=== PATIENT | male | born 1990 | race Caucasian/White ===

== ENCOUNTER 2016-11-21 14:18 | Emergency (ER) | payer OTHER ==
[2016-11-21 14:25] VITALS: PULSE 71; BMI 26.4
--- NOTE | 2016-11-21 16:16 | PDOC ---
History of Present Illness - History of Present Illness Initial Comments: 11/21/16 16:41 The patient is a 26 year old male, with a significant past medical history of G- Tube, who presents to the emergency department with nursing home director from the facility for replacement of G-tube. The patient is non-verbal at baseline. As per living facility, the patient pulled out his G-tube at 1:40PM this afternoon which was followed by active bleeding. Allergies: NKDA <Radha Mauro - Last Filed: 11/21/16 16:44> <Monica Flynn - Last Filed: 12/05/16 12:27> - General Chief Complaint: G Tube Problem Stated Complaint: G TUBE REPLACEMENT Time Seen by Provider: 11/21/16 15:47 Past History <Radha Mauro - Last Filed: 11/21/16 16:44> - Past Medical History Anemia: No Asthma: Yes Cancer: No Cardiac Disorders: No CVA: No COPD: No CHF: No Dementia: No Diabetes: No GI Disorders: Yes (Gastrostomy tube) Disorders: Yes (UTI) HTN: No Hypercholesterolemia: No Liver Disease: No Psychiatric Problems: (Profound Mental Retardation) Seizures: Yes (Epilepsy) Thyroid Disease: No - Surgical History Abdominal Surgery: Yes (Gastrostomy tube) Appendectomy: No Cardiac Surgery: No Cholecystectomy: No Lung Surgery: No Neurologic Surgery: No Orthopedic Surgery: Yes (Spinal fusion, Osteotomy right hip) - Psycho/Social/Smoking Cessation Hx Suicidal Ideation: No Smoking Status: No Smoking History: Never smoked Number of Cigarettes Smoked Daily: 0 Hx Alcohol Use: No Drug/Substance Use Hx: No Substance Use Type: None Hx Substance Use Treatment: No <Monica Flynn - Last Filed: 12/05/16 12:27> - Past Medical History Allergies/Adverse Reactions: Allergies Allergy/AdvReac Type Severity Reaction Status Date / Time No Known Drug Allergies Allergy Verified 11/21/16 14:26 Home Medications: Ambulatory Orders Albuterol 2.5/Ipratropium 0.5 [Duoneb -] 1 neb NEB QIDR PRN #0 vial 11/01/11 Baclofen [Lioresal -] 10 mg GT Q8H 04/01/16 Diazepam Rectal Gel [Diastat Rectal Gel -] 10 mg RC PRN 09/19/16 Ferrous Sulfate 220 mg GT BID 04/01/16 Lactulose 10 gm GT BID 04/01/16 Sennosides [Senna] 2 tab GT HS 04/01/16 Simethicone Liquid [Mylicon Liquid -] 40 mg GT BID 04/01/16 Topiramate 100 mg GT Q12H 04/01/16 Vit C/Ascorbate Calcium,Sodium [Vitamin C 500 mg/15 ml Liquid] 500 mg GT DAILY 04/01/16 Calcium Carbonate/Vitamin D3 [Oyster Shell Calcium-Vit D Tab] 1 each GT BID Clobazam [Onfi -] 15 mg GT BID 04/05/16 Diazepam Con 5mg/Ml Intensol 0.5 mg GT DAILY 04/05/16 Doxycycline Oral Suspension [Vibramycin Oral Suspension -] 100 mg GT BID@1000, 1800 04/05/16 Loratadine [Non-Drowsy Allergy] 10 mg GT DAILY 04/05/16 Polyethylene Glycol 3350 [Glycolax] 17 gm GT DAILY 04/05/16 Sulfamethoxazole/Trimethoprim [Sulfatrim 800-160 mg/20 ml Ramona] 20 ml GT DAILY Levofloxacin [Levaquin -] 500 mg PO DAILY #14 tablet 06/17/16 Review of Systems - Review of Systems Able to Perform ROS?: No (nonverbal at BL) <Radha Mauro - Last Filed: 11/21/16 16:44> *Physical Exam - Vital Signs Last Vital Signs Temp Pulse Resp BP Pulse Ox 71 18 136/69 97 11/21/16 14:21 11/21/16 14:21 11/21/16 14:21 11/21/16 14:21 <Radha Mauro - Last Filed: 11/21/16 16:44> - Vital Signs Last Vital Signs Temp Pulse Resp BP Pulse Ox 71 18 136/69 97 11/21/16 14:21 11/21/16 14:21 11/21/16 14:21 11/21/16 14:21 - Physical Exam Comments: GENERAL: Awake, alert, in no acute distress. Nonverbal at baseline. HEAD: No signs of trauma EYES: PERRLA, EOMI, sclera anicteric, conjunctiva clear ENT: Auricles normal inspection, hearing grossly normal, nares patent, oropharynx clear without exudates. Moist mucosa NECK: Normal ROM, supple, no lymphadenopathy, JVD, or masses LUNGS: Breath sounds equal, clear to auscultation bilaterally. No wheezes, and no crackles HEART: Regular rate and rhythm, normal S1 and S2, no murmurs, rubs or gallops ABDOMEN: Soft, nontender, normoactive bowel sounds. No guarding, no rebound. No masses. +PEG site intact to LUQ. EXTREMITIES: Normal range of motion, no edema. No clubbing or cyanosis. No cords, erythema, or tenderness NEUROLOGICAL: Unable to cooperate with full neuro exam. SKIN: Warm, Dry, normal turgor, no rashes or lesions noted. <Monica Flynn - Last Filed: 12/05/16 12:27> Procedures - Additional Procedures Additional Procedures: gastric tube replacement Progress: 11/21/16 16:21 PEG tube replaced- 22 Fr tube placed on first attempt, no resistance. Balloon inflated. +Borborygmi. Tube secured. <Monica Flynn - Last Filed: 12/05/16 12:27> *DC/Admit/Observation/Transfer - Attestations Scribe Attestion: 11/21/16 16:45 Documentation prepared by Radha Mauro, acting as anesthesiology medical doctor for Monica Flynn MD, <Radha Mauro - Last Filed: 11/21/16 16:44> - Discharge Dispostion Admit: No <Monica Flynn - Last Filed: 12/05/16 12:27> Diagnosis at time of Disposition: PEG tube malfunction - Discharge Dispostion Disposition: HOME Condition at time of disposition: Stable - Patient Instructions Printed Discharge Instructions: How to Care for Your PEG Tube Additional Instructions: Size 22F Peg tube inserted.
[2016-11-21 16:57] VITALS: BP 129/77; TEMP 98.1
== END 2016-11-21 16:55 | disposition home or self-care (01) ==
LOC: JER 14:18
PROC: 0D20XUZ Change Feeding Device in Upper Intestinal Tract, External Approach (ICD-10-PCS; principal; 2016-11-21)
DX: Z43.1 Encounter for attention to gastrostomy (principal); F73 Profound intellectual disabilities; G40.909 Epilepsy, unspecified, not intractable, without status epilepticus; J45.909 Unspecified asthma, uncomplicated
CPT/HCPCS: 74000-TC; 99283-25

== ENCOUNTER 2018-01-14 14:36 | Inpatient (IN) | payer OTHER ==
[2018-01-14] MEDS ORDERED: ALBUTEROL SO4 2.5/IPRATROPIUM 0.5 INH SOL 3 ML VIAL.NEB. NEB ONE ×2 (14:49→15:11)
--- NOTE | 2018-01-14 14:54 | PDOC ---
History of Present Illness - General Chief Complaint: Respiratory Stated Complaint: WHEEZING Time Seen by Provider: 01/14/18 14:54 History Source: Patient Exam Limitations: No Limitations - History of Present Illness Initial Comments: This is a 27 YOM with h/o chronic aspiration, PNA, asthma, PEG tube, UTI, seizure disorder, profound MR/DD, microcephaly, paraplegia, scoliosis, spinal fusion, right hip osteotomy, wheelchair bound at baseline, who was BIBA from [facility] for difficulty breathing, cough, wheezing, rhonchi persistent after multiple nebulizer treatments, with pulse oxygenation 94% at his facility. The patient himself is nonverbal and minimally interactive (per his normal baseline per his collet driller) and is thus unable to provide any medical history. Per [facility] records his temperature was noted as under 94 degrees, not noted whether this was oral or rectal. Past History - Past Medical History Allergies/Adverse Reactions: Allergies Allergy/AdvReac Type Severity Reaction Status Date / Time No Known Drug Allergies Allergy Verified 01/14/18 14:46 Home Medications: Ambulatory Orders Albuterol 0.083% Nebulizer Rani [Ventolin 0.083% Nebulizer Soln -] 1 amp NEB QID 01/14/18 Baclofen 10 mg GT TID 01/14/18 Bisacodyl Suppository [Dulcolax Suppository -] 10 mg RC DAILY PRN 01/14/18 Calcium Carbonate/Vitamin D3 [Oyster Shell Calcium-Vit D Tab] 1 each PO DAILY Clobazam [Onfi -] 15 mg GT BID 01/14/18 Diazepam 5 mg GT DAILY 01/14/18 Diazepam Rectal Gel [Diastat *Rectal Gel*] 10 mg RC PRN 01/14/18 Doxycycline Calcium [Vibramycin] 10 ml GT BID 01/14/18 Ferrous Sulfate 220 mg PEG BID 01/14/18 Lactulose 10 gm PEG BID 01/14/18 Loratadine 10 mg GT DAILY 01/14/18 Mometasone Furoate 17 gm NS BID 01/14/18 Polyethylene Glycol 3350 [Glycolax] 17 gm GT DAILY 01/14/18 Sennosides [Senna] 2 tab GT HS 01/14/18 Simethicone 40 mg PO BID 01/14/18 Sodium Chloride [Saline Mist] 2 spray NS QID 01/14/18 Sulfamethoxazole/Trimethoprim [Sulfatrim 800-160 mg/20 ml Ramona] 20 ml GT HS 01/14 Topiramate 100 mg GT BID 01/14/18 Anemia: No Asthma: Yes Cancer: No Cardiac Disorders: No CVA: No COPD: No CHF: No Dementia: No Diabetes: No GI Disorders: Yes (Gastrostomy tube) Disorders: Yes (UTI) HTN: No Hypercholesterolemia: No Liver Disease: No Psychiatric Problems: (Profound Mental Retardation) Seizures: Yes (Epilepsy) Thyroid Disease: No - Surgical History Abdominal Surgery: Yes (Gastrostomy tube) Appendectomy: No Cardiac Surgery: No Cholecystectomy: No Lung Surgery: No Neurologic Surgery: No Orthopedic Surgery: Yes (Spinal fusion, Osteotomy right hip) - Suicide/Smoking/Psychosocial Hx Smoking Status: No Smoking History: Never smoked Number of Cigarettes Smoked Daily: 0 Hx Alcohol Use: No Drug/Substance Use Hx: No Substance Use Type: None Hx Substance Use Treatment: No Review of Systems - Review of Systems Able to Perform ROS?: No (Severe MR/DD) *Physical Exam - Vital Signs Last Vital Signs Temp Pulse Resp BP Pulse Ox 79 16 117/86 84 L 01/14/18 14:42 01/14/18 14:42 01/14/18 14:42 01/14/18 14:42 - Physical Exam General Appearance: Yes: Other (nonverbal, non-interactive, initially apparently sleeping with eyes closed while sitting in own wheelchair with gurgling breath sounds audible across the room, caregiver at bedside). No: Apparent Distress, Cachetic HEENT: negative: Scleral Icterus (R), Scleral Icterus (L), Nasal Congestion Neck: positive: Trachea midline, Supple. negative: Tender, Rigid Respiratory/Chest: positive: Respiratory Distress (mild), Accessory Muscle Use, Labored Respiration, Rapid RR, Crackles (marked diffuse worse at bilateral bases ). negative: Lungs Clear, Normal Breath Sounds, Rhonchi, Stridor, Wheezing Cardiovascular: positive: Regular Rhythm, Regular Rate, S1, S2. negative: Edema , JVD, Murmur Gastrointestinal/Abdominal: positive: Normal Bowel Sounds, Soft, Protuberent. negative: Tender, Organomegaly, Pulsatile Mass, Guarding Musculoskeletal: positive: Normal Inspection. negative: Decreased Range of Motion, Vertebral Tenderness Extremity: positive: Normal Capillary Refill, Normal Inspection, Normal Range of Motion. negative: Tender, Cyanosis Integumentary: positive: Normal Color, Dry, Warm. negative: Erythema, Rash, Bruising Neurologic: positive: Other (patient cannot participate in neurological exam but caregiver states mentating at baseline). negative: Fully Oriented, Alert, Motor Strength 5/5, Facial Droop ED Treatment Course - LABORATORY CBC & Chemistry Diagram: 01/14/18 15:47 01/14/18 15:47 Medical Decision Making - Critical Care Time Total Critical Care Time (minutes): 45 Critical Care Statement: The care of this patient involved high complexity decision making to prevent further life threatening deterioration of the patient 's condition and/or to evaluate & treat vital organ system(s) failure or risk of failure. - Medical Decision Making 01/14/18 16:24 Pt p/w SOB, cough, and hypothermia. Initial Vital Signs Pulse Resp BP Pulse Ox 79 16 117/86 84 L 01/14/18 14:42 01/14/18 14:42 01/14/18 14:42 01/14/18 14:42 Rectal temp 92.2 on arrival. Exam: Results as noted in Physical Exam section. DDX IBNLT: sepsis, PNA, aspiration pneumonitis, bronchitis, pulmonary edema, asthma, viral URI (e.g. influenza), CHF, other lung disease, COPD, laryngitis, tracheitis, etc. W/U ordered: CXR EKG CBCD CMP Mg Phos Blood gas Lactate BCx Cardiac panel EKG CXR Rectal temp probe TX ordered: IVF Vancomycin Zosyn Azithromycin EKG: Reviewed; results as noted in ECG Review section. CXR: Pulmonary vascular congestion, possible RLL consolidation, Chilaiditi variant similar to prior CXRs, otherwise nothing acute. Patient has a seizure lasting about one minute, caregiver states per his normal seizures, no desat. Copious secretions during seizure which are suctioned and patient noted to have no gag reflex during suctioning. Spoke with Pt's mother Ms. Florence Dave ([phone]), who states per patient' s prior code status conversations with his providers: No surgeries, no permanent "hookup to machines", no chest compressions, but DO intubate and do central line if indicated. Laboratory Tests 01/14/18 01/14/18 01/14/18 15:47 15:47 15:47 WBC 18.1 H RBC 3.71 L Hgb 11.0 L Hct 35.0 L D MCV 94.3 MCH 29.7 MCHC 31.5 L RDW 16.1 H Plt Count 596 H D MPV 7.0 L D Absolute Neuts (auto) 15.1 Neutrophils % 83.2 H D Lymphocytes % 11.5 D Monocytes % 4.7 Eosinophils % 0.2 D Basophils % 0.4 Nucleated RBC % 0 PT with INR Cancelled INR Cancelled PTT (Actin FS) Cancelled VBG pH POC VBG pCO2 POC VBG pO2 Mixed VBG HCO3 Sodium 137 Potassium 4.3 Chloride 104 Carbon Dioxide 21 Anion Gap 12 BUN 22 H Creatinine 1.3 Creat Clearance w eGFR > 60 Random Glucose 139 H D Lactic Acid Calcium 9.3 Total Bilirubin 0.2 AST 35 D ALT 27 D Alkaline Phosphatase 166 H Creatine Kinase 60 CK-MB (CK-2) 1.90 Troponin I Total Protein 8.9 H Albumin 2.7 L Urine Color Urine Appearance Urine pH Ur Specific [place] Urine Protein Urine Glucose (UA) Urine Ketones Urine Blood Urine Nitrite Urine Bilirubin Urine Urobilinogen Ur Leukocyte Esterase Urine WBC (Auto) Urine RBC (Auto) Urine Bacteria Urine Mucus Stool Occult Blood Anti-A Titer Blood Type Antibody Screen 01/14/18 01/14/18 01/14/18 15:47 15:47 15:47 WBC RBC Hgb Hct MCV MCH MCHC RDW Plt Count MPV Absolute Neuts (auto) Neutrophils % Lymphocytes % Monocytes % Eosinophils % Basophils % Nucleated RBC % PT with INR INR PTT (Actin FS) VBG pH POC VBG pCO2 POC VBG pO2 Mixed VBG HCO3 Sodium Potassium Chloride Carbon Dioxide Anion Gap BUN Creatinine Creat Clearance w eGFR Random Glucose Lactic Acid 1.5 Calcium Total Bilirubin AST ALT Alkaline Phosphatase Creatine Kinase CK-MB (CK-2) Troponin I < 0.02 Total Protein Albumin Urine Color Urine Appearance Urine pH Ur Specific [place] Urine Protein Urine Glucose (UA) Urine Ketones Urine Blood Urine Nitrite Urine Bilirubin Urine Urobilinogen Ur Leukocyte Esterase Urine WBC (Auto) Urine RBC (Auto) Urine Bacteria Urine Mucus Stool Occult Blood Anti-A Titer Cancelled Blood Type Cancelled Antibody Screen Cancelled 01/14/18 01/14/18 01/14/18 15:52 16:10 16:29 WBC RBC Hgb Hct MCV MCH MCHC RDW Plt Count MPV Absolute Neuts (auto) Neutrophils % Lymphocytes % Monocytes % Eosinophils % Basophils % Nucleated RBC % PT with INR Cancelled INR Cancelled PTT (Actin FS) Cancelled VBG pH 7.20 L* POC VBG pCO2 58.2 H POC VBG pO2 36.4 Mixed VBG HCO3 22.2 Sodium Potassium Chloride Carbon Dioxide Anion Gap BUN Creatinine Creat Clearance w eGFR Random Glucose Lactic Acid Calcium Total Bilirubin AST ALT Alkaline Phosphatase Creatine Kinase CK-MB (CK-2) Troponin I Total Protein Albumin Urine Color Urine Appearance Urine pH Ur Specific [place] Urine Protein Urine Glucose (UA) Urine Ketones Urine Blood Urine Nitrite Urine Bilirubin Urine Urobilinogen Ur Leukocyte Esterase Urine WBC (Auto) Urine RBC (Auto) Urine Bacteria Urine Mucus Stool Occult Blood Negative Anti-A Titer Blood Type Antibody Screen 01/14/18 16:54 WBC RBC Hgb Hct MCV MCH MCHC RDW Plt Count MPV Absolute Neuts (auto) Neutrophils % Lymphocytes % Monocytes % Eosinophils % Basophils % Nucleated RBC % PT with INR INR PTT (Actin FS) VBG pH POC VBG pCO2 POC VBG pO2 Mixed VBG HCO3 Sodium Potassium Chloride Carbon Dioxide Anion Gap BUN Creatinine Creat Clearance w eGFR Random Glucose Lactic Acid Calcium Total Bilirubin AST ALT Alkaline Phosphatase Creatine Kinase CK-MB (CK-2) Troponin I Total Protein Albumin Urine Color Yellow Urine Appearance Slcloudy Urine pH 6.0 D Ur Specific [place] 1.006 Urine Protein Negative Urine Glucose (UA) Negative Urine Ketones Negative Urine Blood Negative Urine Nitrite Negative Urine Bilirubin Negative Urine Urobilinogen Negative Ur Leukocyte Esterase 2+ H Urine WBC (Auto) 13 Urine RBC (Auto) 1 Urine Bacteria Few Urine Mucus Rare Stool Occult Blood Anti-A Titer Blood Type Antibody Screen Reassessment: Exam unchanged. CURB-65 score: 2, mortality 9.2% PNA Severity Index: 103, 9.3% ADMIT CURB-65 and PSI and patient's hypothermia dictate Pt should be admitted for inpatient management. The Pt is unsafe for discharge at this time. They require further hospital observation, workup, and treatment. Spoke with ICU attending Dr. Brito; notes that scott serrato can be managed on the regular floor. He will kindly see the patient in consult while inpatient. Microblog sent to [facility] for admission. Spoke with Marleenicko, in agreement Pt to be admitted to IP Med/Surg. Decision to Admit order placed to covering attending. *DC/Admit/Observation/Transfer Diagnosis at time of Disposition: Seizure disorder Hypothermia Qualifiers: Encounter type: initial encounter Qualified Code(s): T68.XXXA - Hypothermia, initial encounter Sepsis Qualifiers: Sepsis type: sepsis due to unspecified organism Qualified Code(s): A41.9 - Sepsis, unspecified organism UTI (urinary tract infection) Qualifiers: Urinary tract infection type: site unspecified Hematuria presence: without hematuria Qualified Code(s): N39.0 - Urinary tract infection, site not specified Anemia Qualifiers: Anemia type: unspecified type Qualified Code(s): D64.9 - Anemia, unspecified PNA (pneumonia) Qualifiers: Pneumonia type: aspiration pneumonia Aspiration pneumonia type: unspecified Laterality: unspecified laterality Lung location: unspecified part of lung Qualified Code(s): J69.0 - Pneumonitis due to inhalation of food and vomit - Discharge Dispostion Condition at time of disposition: Guarded Decision to Admit order: Yes - Referrals - Patient Instructions - Post Discharge Activity
[2018-01-14] MEDS ORDERED: SODIUM CHLORIDE 1,000 ML IV STA (15:11)
[2018-01-14 15:56] LABS: BASO % 0.4 % (0-2.0); EOS % 0.2 % (0-4.5); LYMPH % 11.5 % (8-40); MCH 29.7 pg (25.7-33.7); MCHC 31.5 g/dl (32.0-35.9); MEAN CELL VOLUME 94.3 fl (80-96); MONO % 4.7 % (3.8-10.2); NEUT % 83.2 % (42.8-82.8); PLATELET COUNT 596 K/MM3 (134-434); RBC 3.71 M/mm3 (4.00-5.60); RDW 16.1 % (11.9-15.9); WHITE BLOOD COUNT 18.1 K/mm3 (4.0-10.0)
[2018-01-14] MEDS ORDERED: VANCOMYCIN 1,000 MG in DEXTROSE 5%-WATER - 250 ML IVPB ONE (16:04)
[2018-01-14] MEDS ORDERED: PIPERACILLIN/TAZOB 3.375 GM 3.375 GM in DEXTROSE 5%-WATER - 50 ML IVPB ONE (16:04)
[2018-01-14] MEDS ORDERED: AZITHROMYCIN IVPB 500 MG in DEXTROSE 5%-WATER - 250 ML IVPB ONE (16:07)
[2018-01-14] MEDS ORDERED: AZITHROMYCIN IVPB 250 ML IVPB ONE (16:11)
[2018-01-14] MEDS ORDERED: PIPERACILLIN/TAZOB 3.375 GM 3.375 GM/50 ML BAG IVPB ONE (16:11)
[2018-01-14 16:15] LABS: ALBUMIN 2.7 g/dl (3.4-5.0); ALK PHOS 166 U/L (45-117); ANION GAP 12 (8-16); BILIRUBIN,TOTAL 0.2 mg/dL (0.2-1.0); BLOOD UREA NITROGEN 22 mg/dL (7-18); CALCIUM 9.3 mg/dL (8.5-10.1); CHLORIDE 104 mmol/L (98-107); CO2 21 mmol/L (21-32); CREATININE 1.3 mg/dL (0.7-1.3); GLUCOSE,RANDOM 139 mg/dL (74-106); SGPT/ALT 27 U/L (12-78); SODIUM 137 mmol/L (136-145); TOT PROT 8.9 g/dl (6.4-8.2)
[2018-01-14 16:16] LABS: VENOUS PC02 58.2 mmHg (38-52); VENOUS PO2 36.4 mmHg (28-48)
[2018-01-14 16:18] LABS: POTASSIUM 4.3 mmol/L (3.5-5.1); SGOT/AST 35 U/L (15-37)
[2018-01-14 16:18] LABS: VENOUS PH 7.2 (7.32-7.42)
--- NOTE | 2018-01-14 16:40 | PDOC ---
Attending Attestation - Resident Resident Name: Zaira Dong - ED Attending Attestation I have performed the following: I have examined & evaluated the patient, The case was reviewed & discussed with the resident, I agree w/resident's findings & plan, Exceptions are as noted - HPI HPI: 01/14/18 16:34 "The patient is a 27-year-old male coming from [place], with a past medical history of asthma, MR, seizure disorder, and chronic pulmonary aspirations, who was sent to the ED for cough and hypoxia at care facility. Pt was also noted to have fever at home. Pt has h/o aspiration pneumonias. Staff has not noted any vomiting. Allergies: NKDA PCP: Dr. Cora Schumacher " 01/14/18 16:37 - Physicial Exam PE: 01/14/18 16:40 "GENERAL: Awake, in mild respiratory distress. HEAD: No signs of trauma EYES: PERRLA, EOMI, sclera anicteric, conjunctiva clear ENT: Auricles normal inspection, hearing grossly normal, nares patent, oropharynx clear without exudates. Moist mucosa NECK: Nontender, no stepoffs, Normal ROM, supple, no lymphadenopathy, JVD, or masses LUNGS: diffuse rhonchi, no wheezing HEART: Regular rate and rhythm, normal S1 and S2, no murmurs, rubs or gallops ABDOMEN: Soft, nontender, normoactive bowel sounds. No guarding, no rebound. No masses NEUROLOGICAL: contracted extremities SKIN: Warm, Dry, normal turgor, no rashes or lesions noted. " - Medical Decision Making 01/14/18 16:43 27 M with hypothermia, hypoxia and tachypnea. Exam with diffuse rhonchi, concerning for recurrent aspiration pneumonia. - Labs, cultures - CXR - IVF, abx - external rewarming
[2018-01-14 17:07] LABS: URINE APPEARANCE SLCLOUDY; URINE BILIRUBIN NEGATIVE (<2.0 mg/dL); URINE COLOR YELLOW; URINE GLUCOSE (UA) NEGATIVE (NEGATIVE); URINE KETONE NEGATIVE (NEGATIVE); URINE NITRITE NEGATIVE (NEGATIVE); URINE PROTEIN NEGATIVE (NEGATIVE); URINE UROBILINOGEN NEGATIVE mg/dL (0.2-1.0)
[2018-01-14 17:10] LABS: URINE LEUK ESTERASE 2+ (NEGATIVE)
[2018-01-14 17:12] LABS: URINE BACTERIA FEW /hpf (NONE SEEN); URINE MUCUS RARE
[2018-01-14] MEDS ORDERED: SODIUM CHLORIDE 0.9% 500 ML INFUS.BAG IV ONE (17:57)
[2018-01-14] MEDS ORDERED: VANCOMYCIN 1 GRAM (PRE-DOCKED) 1,000 MG/250 ML BAG IVPB ONE (18:19)
[2018-01-14 18:33] LABS: ANISOCYTOSIS 1+; MACROCYTOSIS 1+; PLATELET ESTIMATE INCREASED
--- NOTE | 2018-01-14 20:52 | PN ---
Teaching Attending Note Name of Resident: Jackson Bowie ATTENDING PHYSICIAN STATEMENT I saw and evaluated the patient. I reviewed the resident's note and discussed the case with the resident. I agree with the resident's findings and plan as documented. SUBJECTIVE: Patient is a 27 year old man with history of chronic aspiration, PNA, asthma, PEG tube, UTI, seizure disorder, profound MR/DD, microcephaly, paraplegia, scoliosis, spinal fusion, right hip osteotomy, wheelchair bound at baseline, who was sent from [facility] for difficulty breathing, cough, wheezing, rhonchi persistent after multiple nebulizer treatments, with pulse oxygenation 94% at his facility. The patient himself is nonverbal and minimally interactive (per his normal baseline per his credit control officer) and is thus unable to provide any medical history. OBJECTIVE: Alert and in no acute distress Vital Signs Period Temp Pulse Resp BP Sys/Saha Pulse Ox Last 24 Hr 92.2 F-94.1 F 67-98 16-25 96-118/64-86 84-100 HEENT: No Jaundice, eye redness or discharge, PERRLA. Normocephalic, atraumatic. External ears are normal. No nasal discharge. Neck: Supple, nontender. No palpable adenopathy or thyromegaly. No JVD Chest: Good effort. Wheezing and prolonged expiration. Clear to percussion. Heart: Regular. No S3, rub or murmur Abdomen: Not distended, soft, nontender and no HSM. PEG in place. No rebound or guarding. Normoactive bowel sounds. Ext: Peripheral pulses intact. No leg edema. Limb contractures. Bates in place. Skin: Warm and dry. No petechiae, rash or ecchymosis. Neuro: Unable to follow commands. Wheelchair use. Paraplegia. Home Medications Medication Instructions Recorded Albuterol 0.083% Nebulizer Rani 1 amp NEB QID 01/14/18 [Ventolin 0.083% Nebulizer Soln -] Baclofen 10 mg GT TID 01/14/18 Bisacodyl Suppository [Dulcolax 10 mg RC DAILY PRN 01/14/18 Suppository -] Calcium Carbonate/Vitamin D3 1 each PO DAILY 01/14/18 [Oyster Shell Calcium-Vit D Tab] Clobazam [Onfi -] 15 mg GT BID 01/14/18 Diazepam 5 mg GT DAILY 01/14/18 Diazepam Rectal Gel [Diastat 10 mg RC PRN 01/14/18 *Rectal Gel*] Doxycycline Calcium [Vibramycin] 10 ml GT BID 01/14/18 Ferrous Sulfate 220 mg PEG BID 01/14/18 Lactulose 10 gm PEG BID 01/14/18 Loratadine 10 mg GT DAILY 01/14/18 Mometasone Furoate 17 gm NS BID 01/14/18 Polyethylene Glycol 3350 [Glycolax] 17 gm GT DAILY 01/14/18 Sennosides [Senna] 2 tab GT HS 01/14/18 Simethicone 40 mg PO BID 01/14/18 Sodium Chloride [Saline Mist] 2 spray NS QID 01/14/18 Sulfamethoxazole/Trimethoprim 20 ml GT HS 01/14/18 [Sulfatrim 800-160 mg/20 ml Ramona] Topiramate 100 mg GT BID 01/14/18 Abnormal Lab Results 01/14/18 01/14/18 01/14/18 15:47 15:47 15:52 WBC 18.1 H RBC 3.71 L Hgb 11.0 L Hct 35.0 L D MCHC 31.5 L RDW 16.1 H Plt Count 596 H D MPV 7.0 L D Neutrophils % 83.2 H D Monocytes % (Manual) 3 L VBG pH 7.20 L* POC VBG pCO2 58.2 H BUN 22 H Random Glucose 139 H D Alkaline Phosphatase 166 H Total Protein 8.9 H Albumin 2.7 L Ur Leukocyte Esterase 01/14/18 16:54 WBC RBC Hgb Hct MCHC RDW Plt Count MPV Neutrophils % Monocytes % (Manual) VBG pH POC VBG pCO2 BUN Random Glucose Alkaline Phosphatase Total Protein Albumin Ur Leukocyte Esterase 2+ H ASSESSMENT AND PLAN: 1. Sepsis due to healthcare-associated UTI vs Pnuemonia - Though he has a history of aspiration pneumonias in the past, the CXR showing RLL ? consolidation vs atelectasis is not remarkably different from his CXR from several months ago. Will get a CT scan of the chest for clarification and treat with Vancomycin and Zosyn pending urine and blood culture reports. Will consult ID and Pulmonary, continue warming blanket for hypothermia and IV NS. Continue PEG feeding. 2. Mental retardation and paraplegia - Continue comprehensive care as well as frequent repositioning. Bedside PT. 3. Asthma exacerbation - Will treat with duoneb, dulera, spiriva and solumedrol. 4. Hypoalbuminemia - Possibly due to combined effects of malnutrition and inflammation associated with comorbid chronic conditions. Will ensure adequate dietary protein intake via PEG feeding and consult applied psychology teacher. 5. Mild Anemia - Do basic anemia work up including serial stool guaiacs, reticulocyte count and iron studies. 6. DVT prophylaxis - Heparin 5000u sq tid. 7. Advance directives - Full code
[2018-01-15] MEDS ORDERED: TIOTROPIUM BROMIDE 18 MCG CAPSULES IH SCH (01:00)
--- NOTE | 2018-01-15 01:05 | HP ---
CHIEF COMPLAINT: difficulty breathing, wheezing PCP: HISTORY OF PRESENT ILLNESS: 27 y/o wheelchair quinn, nonverbal male from [facility] presents with difficulty breathing, rhonchi, and wheezing that began earlier this afternoon. As per health aid at bedside, patient was given multiple nebulizer treatments which were minimally palliative at [facility]. Reported O2 saturation at [facility] was 94%. Patient was also hypothermic upon presentation at 92.3 degrees F. ER course was notable for: (1)EKG, CXR, dove catheter placed (2)CBC, BMP, Mg, Phos, lactate, blood cx, urine cx, urinalysis (3)Vancomycin, Zosyn, Azithromycin Recent Travel: PAST MEDICAL HISTORY: chronic aspiration, pneumonia, asthma, UTI, seizure, paraplegia, MR/DD, scoliosis PAST SURGICAL HISTORY: Social History: Smoking: none Alcohol: none Drugs: none Family History: Allergies: NKDA No Known Drug Allergies Allergy (Verified 01/14/18 14:46) HOME MEDICATIONS: Home Medications Medication Instructions Recorded Albuterol 0.083% Nebulizer Rani 1 amp NEB QID 01/14/18 [Ventolin 0.083% Nebulizer Soln -] Baclofen 10 mg GT TID 01/14/18 Bisacodyl Suppository [Dulcolax 10 mg RC DAILY PRN 01/14/18 Suppository -] Calcium Carbonate/Vitamin D3 1 each PO DAILY 01/14/18 [Oyster Shell Calcium-Vit D Tab] Clobazam [Onfi -] 15 mg GT BID 01/14/18 Diazepam 5 mg GT DAILY 01/14/18 Diazepam Rectal Gel [Diastat 10 mg RC PRN 01/14/18 *Rectal Gel*] Doxycycline Calcium [Vibramycin] 10 ml GT BID 01/14/18 Ferrous Sulfate 220 mg PEG BID 01/14/18 Lactulose 10 gm PEG BID 01/14/18 Loratadine 10 mg GT DAILY 01/14/18 Mometasone Furoate 17 gm NS BID 01/14/18 Polyethylene Glycol 3350 [Glycolax] 17 gm GT DAILY 01/14/18 Sennosides [Senna] 2 tab GT HS 01/14/18 Simethicone 40 mg PO BID 01/14/18 Sodium Chloride [Saline Mist] 2 spray NS QID 01/14/18 Sulfamethoxazole/Trimethoprim 20 ml GT HS 01/14/18 [Sulfatrim 800-160 mg/20 ml Ramona] Topiramate 100 mg GT BID 01/14/18 REVIEW OF SYSTEMS Unable to obtain as patient is nonverbal, noncommunicative at baseline. PHYSICAL EXAMINATION Vital Signs - 24 hr 01/14/18 01/14/18 01/14/18 14:42 14:50 16:07 Temperature 92.3 F L 92.2 F L Pulse Rate 79 67 Pulse Rate [ Apical] Respiratory 16 24 Rate Blood Pressure 117/86 Blood Pressure [Left Arm] O2 Sat by Pulse 84 L 98 Oximetry (%) 01/14/18 01/14/18 01/14/18 17:13 17:32 18:33 Temperature 92.6 F L 94.1 F L Pulse Rate Pulse Rate [ 86 98 H Apical] Respiratory 16 25 H Rate Blood Pressure Blood Pressure 96/67 118/64 [Left Arm] O2 Sat by Pulse 100 97 98 Oximetry (%) 01/14/18 01/14/18 01/14/18 19:10 20:10 20:49 Temperature 94.6 F L 95.2 F L 95.4 F L Pulse Rate Pulse Rate [ 92 H 89 94 H Apical] Respiratory 24 24 24 Rate Blood Pressure Blood Pressure 118/66 118/68 122/78 [Left Arm] O2 Sat by Pulse 100 100 100 Oximetry (%) 01/14/18 01/14/18 21:12 22:00 Temperature 94.8 F L 96.0 F L Pulse Rate 75 Pulse Rate [ 88 Apical] Respiratory 22 24 Rate Blood Pressure 93/42 Blood Pressure 120/68 [Left Arm] O2 Sat by Pulse 100 Oximetry (%) GENERAL: Nonverbal, no acute distress. HEAD: normocephalic, atraumatic. EYES: Pupils equal, round and reactive to light, extraocular movements intact, sclera anicteric LUNGS: Course breath sounds and rhonchi, inspiratory and expiratory wheezes and crackles auscultated B/L HEART: Regular rate and rhythm, normal S1 and S2. No murmurs. ABDOMEN: Soft, nontender, not distended, normoactive bowel sounds, no guarding, no rebound. EXTREMITIES: 2+ radial pulses B/L. Unable to appreciate DP pulses. No peripheral edema. Laboratory Results - last 24 hr 07/04/18 07/04/18 07/04/18 15:47 15:47 15:47 WBC 18.1 H RBC 3.71 L Hgb 11.0 L Hct 35.0 L D MCV 94.3 MCH 29.7 MCHC 31.5 L RDW 16.1 H Plt Count 596 H D MPV 7.0 L D Absolute Neuts (auto) 15.1 Total Counted 100 Neutrophils % 83.2 H D Neutrophils % (Manual) 81.0 Band Neutrophils % 6.0 Lymphocytes % 11.5 D Lymphocytes % (Manual) 10.0 Monocytes % 4.7 Monocytes % (Manual) 3 L Eosinophils % 0.2 D Basophils % 0.4 Nucleated RBC % 0 Hypochromia 1+ Platelet Estimate Increased Platelet Comment No clumping noted Poikilocytosis 1+ Anisocytosis 1+ Macrocytosis 1+ PT with INR Cancelled INR Cancelled PTT (Actin FS) Cancelled VBG pH POC VBG pCO2 POC VBG pO2 Mixed VBG HCO3 Sodium 137 Potassium 4.3 Chloride 104 Carbon Dioxide 21 Anion Gap 12 BUN 22 H Creatinine 1.3 Creat Clearance w eGFR > 60 Random Glucose 139 H D Lactic Acid Calcium 9.3 Total Bilirubin 0.2 AST 35 D ALT 27 D Alkaline Phosphatase 166 H Creatine Kinase 60 CK-MB (CK-2) 1.90 Troponin I Total Protein 8.9 H Albumin 2.7 L Urine Color Urine Appearance Urine pH Ur Specific [place] Urine Protein Urine Glucose (UA) Urine Ketones Urine Blood Urine Nitrite Urine Bilirubin Urine Urobilinogen Ur Leukocyte Esterase Urine WBC (Auto) Urine RBC (Auto) Urine Bacteria Urine Mucus Stool Occult Blood Anti-A Titer Blood Type Antibody Screen 01/14/18 01/14/18 01/14/18 15:47 15:47 15:47 WBC RBC Hgb Hct MCV MCH MCHC RDW Plt Count MPV Absolute Neuts (auto) Total Counted Neutrophils % Neutrophils % (Manual) Band Neutrophils % Lymphocytes % Lymphocytes % (Manual) Monocytes % Monocytes % (Manual) Eosinophils % Basophils % Nucleated RBC % Hypochromia Platelet Estimate Platelet Comment Poikilocytosis Anisocytosis Macrocytosis PT with INR INR PTT (Actin FS) VBG pH POC VBG pCO2 POC VBG pO2 Mixed VBG HCO3 Sodium Potassium Chloride Carbon Dioxide Anion Gap BUN Creatinine Creat Clearance w eGFR Random Glucose Lactic Acid 1.5 Calcium Total Bilirubin AST ALT Alkaline Phosphatase Creatine Kinase CK-MB (CK-2) Troponin I < 0.02 Total Protein Albumin Urine Color Urine Appearance Urine pH Ur Specific [place] Urine Protein Urine Glucose (UA) Urine Ketones Urine Blood Urine Nitrite Urine Bilirubin Urine Urobilinogen Ur Leukocyte Esterase Urine WBC (Auto) Urine RBC (Auto) Urine Bacteria Urine Mucus Stool Occult Blood Anti-A Titer Cancelled Blood Type Cancelled Antibody Screen Cancelled 01/14/18 01/14/18 01/14/18 15:52 16:10 16:29 WBC RBC Hgb Hct MCV MCH MCHC RDW Plt Count MPV Absolute Neuts (auto) Total Counted Neutrophils % Neutrophils % (Manual) Band Neutrophils % Lymphocytes % Lymphocytes % (Manual) Monocytes % Monocytes % (Manual) Eosinophils % Basophils % Nucleated RBC % Hypochromia Platelet Estimate Platelet Comment Poikilocytosis Anisocytosis Macrocytosis PT with INR Cancelled INR Cancelled PTT (Actin FS) Cancelled VBG pH 7.20 L* POC VBG pCO2 58.2 H POC VBG pO2 36.4 Mixed VBG HCO3 22.2 Sodium Potassium Chloride Carbon Dioxide Anion Gap BUN Creatinine Creat Clearance w eGFR Random Glucose Lactic Acid Calcium Total Bilirubin AST ALT Alkaline Phosphatase Creatine Kinase CK-MB (CK-2) Troponin I Total Protein Albumin Urine Color Urine Appearance Urine pH Ur Specific [place] Urine Protein Urine Glucose (UA) Urine Ketones Urine Blood Urine Nitrite Urine Bilirubin Urine Urobilinogen Ur Leukocyte Esterase Urine WBC (Auto) Urine RBC (Auto) Urine Bacteria Urine Mucus Stool Occult Blood Negative Anti-A Titer Blood Type Antibody Screen 01/14/18 01/14/18 16:54 17:50 WBC RBC Hgb Hct MCV MCH MCHC RDW Plt Count MPV Absolute Neuts (auto) Total Counted Neutrophils % Neutrophils % (Manual) Band Neutrophils % Lymphocytes % Lymphocytes % (Manual) Monocytes % Monocytes % (Manual) Eosinophils % Basophils % Nucleated RBC % Hypochromia Platelet Estimate Platelet Comment Poikilocytosis Anisocytosis Macrocytosis PT with INR INR PTT (Actin FS) VBG pH POC VBG pCO2 POC VBG pO2 Mixed VBG HCO3 Sodium Potassium Chloride Carbon Dioxide Anion Gap BUN Creatinine Creat Clearance w eGFR Random Glucose Lactic Acid 1.5 Calcium Total Bilirubin AST ALT Alkaline Phosphatase Creatine Kinase CK-MB (CK-2) Troponin I Total Protein Albumin Urine Color Yellow Urine Appearance Slcloudy Urine pH 6.0 D Ur Specific [place] 1.006 Urine Protein Negative Urine Glucose (UA) Negative Urine Ketones Negative Urine Blood Negative Urine Nitrite Negative Urine Bilirubin Negative Urine Urobilinogen Negative Ur Leukocyte Esterase 2+ H Urine WBC (Auto) 13 Urine RBC (Auto) 1 Urine Bacteria Few Urine Mucus Rare Stool Occult Blood Anti-A Titer Blood Type Antibody Screen ASSESSMENT/PLAN: 27 y/o nonverbal male at baseline from [facility] presents with difficulty breathing, rhonchi, and wheezing that began earlier this afternoon. #Sepsis secondary to aspiration/health care acquired pneumonia vs UTI -SIRS criteria: temperature 96.1F, HR 103, RR 26, WBC 18.1 -CXR showed RLL consolidation -CT chest ordered -Start Zosyn and Vanco -ID and Pulmonary consult requested #Hypothermia: -Rectal temperature of 92.3F upon admission -Jesus Alberto hugger warming -Follow rectal body temperature #Asthma exacerbation -Expiratory wheezes B/L -Continue nonrebreather mask at 100% -Duoneb, solumedrol #Anemia -Hb 11, Hct 35 -Fe, TIBS, ferritin, retic count, stool guiac #Hypoalbuminemia -Albumin 2.7 -Likely secondary to malnutrition -Masonry Installer consult requested #Paraplegia: -Frequent turning/ repositioning #FEN IV NS 42ml/hr No electrolyte repletion NPO for now d/t aspiration risk #Prophylaxis -Heparin 5000 units subq TID Code status: Full code Disposition: Admit to medical-surgical floor Case discussed with operations supervisor attending Jackson Bowie DO PGY1 Visit type - Emergency Visit Emergency Visit: Yes ED Registration Date: 01/14/18 Care time: The patient presented to the Emergency Department on the above date and was hospitalized for further evaluation of their emergent condition. - New Patient This patient is new to me today: Yes Date on this admission: 01/15/18 - Critical Care Critical Care patient: No Hospitalist Screening - Colonoscopy Questionnaire Colonoscopy Questionnaire: Colonoscopy Questionnaire - Patient: 50 - 75 years old and never had a screening colonoscopy: Unknown History of colon or rectal polyps, or CA: Unknown History of IBD, Crohn's disease or UC: Unknown History of abdominal radiation therapy as a child: Unknown - Relative: 1 with colon or rectal CA, or polyps at age 60 or younger: Unknown Colon or rectal CA diagnosed at age 45 or younger: Unknown Multiple relatives with colon or rectal CA: Unknown - Outcome: Screening Result: Negative Screen
[2018-01-15] MEDS ORDERED: VANCOMYCIN 1,000 MG in DEXTROSE 5%-WATER - 250 ML IVPB ONE (01:58)
[2018-01-15] MEDS ORDERED: PIPERACILLIN/TAZOB 4.5 GM 4.5 GM in DEXTROSE 5%-WATER 100 ML IVPB SCH ×3 (02:30→15:00)
[2018-01-15] MEDS ORDERED: PIPERACILLIN/TAZOBACTAM 4.5 GM VIAL IVPB ONE ×3 (03:34→17:22)
[2018-01-15] MEDS ORDERED: DEXTROSE 5%-WATER 100 ML IVPB ONE ×3 (03:34→17:22)
[2018-01-15 04:33] VITALS: BMI 29.1
[2018-01-15] MEDS: SODIUM CHLORIDE 1,000 ML IV SCH (04:45)
[2018-01-15] MEDS: HEPARIN NA (PORCINE) 5,000 UNITS/ML 1ML VIAL SQ SCH ×3 (06:00→21:04)
[2018-01-15] MEDS ORDERED: LORazepam 2 MG/ML SDV VIAL ONE (07:57)
[2018-01-15 07:58] LABS: ARTERIAL BLD GAS O2 SATURATION 91.2 % (90-98.9); ARTERIAL BLOOD GAS BASE EXCESS -8.3 meq/l (-2-2); ARTERIAL BLOOD GAS PCO2 54.6 mmHg (35-45); ARTERIAL BLOOD GAS PO2 65.1 mmHg (80-100)
[2018-01-15 08:00] LABS: ALLENS TEST POSITIVE
[2018-01-15 08:03] LABS: ARTERIAL BLOOD GAS pH 7.18 (7.35-7.45)
[2018-01-15] MEDS ORDERED: ACETAMINOPHEN 1000 MG/100 ML VIAL (NON FORMULARY) IVPB ONE (08:06)
[2018-01-15] MEDS ORDERED: diazePAM ACUDIAL 5-7.5-10 MG 1 EACH KIT RC PRN ×2 (08:15→08:39)
[2018-01-15] MEDS ORDERED: LORazepam 2 MG/ML SDV VIAL IVPUSH ONE (08:30)
--- NOTE | 2018-01-15 08:47 | PN ---
Progress Note, Physician Chief Complaint: ID Full note dictated Seizures upstairs prompting transfer. Admitted in respiratory distress hypothermia as so often seen in this setting - Current Medication List Current Medications: Active Medications Albuterol/Ipratropium (Duoneb -) 1 amp NEB Q4H PRN PRN Reason: SHORTNESS OF BREATH Baclofen (Lioresal -) 10 mg GT TID JULIO Clobazam (Onfi -) 15 mg PO BID JULIO Diazepam (Valium -) 5 mg GT DAILY JULIO Diazepam (Diastat Rectal Gel -) 10 mg RC DAILY PRN PRN Reason: seisure above 3mins, notify Heparin Sodium (Porcine) (Heparin -) 5,000 unit SQ TID JULIO Last Admin: 01/15/18 06:00 Dose: 5,000 unit Piperacillin Sod/Tazobactam (Sod 4.5 gm/ Dextrose) 100 mls @ 200 mls/hr IVPB Q6H-IV JULIO; Protocol Piperacillin Sod/Tazobactam (Sod 4.5 gm/ Dextrose) 100 mls @ 200 mls/hr IVPB Q6H-IV JULIO; Protocol Stop: 01/15/18 09:29 Last Admin: 01/15/18 04:00 Dose: 200 mls/hr Sodium Chloride (Normal Saline -) 1,000 mls @ 42 mls/hr IV ASDIR JULIO Last Admin: 01/15/18 04:45 Dose: 42 mls/hr Methylprednisolone Sodium Succinate (Solu-Medrol -) 40 mg IVPUSH DAILY JULIO Topiramate (Topamax -) 100 mg GT BID JULIO - Objective Vital Signs: Vital Signs Temperature 97.5 F L 01/15/18 06:00 Pulse Rate 112 H 01/15/18 08:00 Respiratory Rate 26 H 01/15/18 08:00 Blood Pressure 112/69 01/15/18 08:00 O2 Sat by Pulse Oximetry (%) 100 01/14/18 21:12 Cardiovascular: Yes: S1, S2 Respiratory: Yes: Rhonchi Gastrointestinal: Yes: Distention, Other (PEG) Extremities: Yes: Other (Contracted) Labs: CBC, BMP 01/14/18 15:47 01/14/18 15:47 INR, PTT INR Cancelled 01/14/18 15:47 Problem List - Problems (1) Hypothermia Code(s): T68.XXXA - HYPOTHERMIA, INITIAL ENCOUNTER Qualifiers: Encounter type: initial encounter Qualified Code(s): T68.XXXA - Hypothermia , initial encounter (2) PNA (pneumonia) Code(s): J18.9 - PNEUMONIA, UNSPECIFIED ORGANISM Qualifiers: Pneumonia type: aspiration pneumonia Aspiration pneumonia type: unspecified Laterality: unspecified laterality Lung location: unspecified part of lung Qualified Code(s): J69.0 - Pneumonitis due to inhalation of food and vomit (3) Seizure disorder Code(s): G40.909 - EPILEPSY, UNSP, NOT INTRACTABLE, WITHOUT STATUS EPILEPTICUS (4) UTI (urinary tract infection) Code(s): N39.0 - URINARY TRACT INFECTION, SITE NOT SPECIFIED Qualifiers: Urinary tract infection type: site unspecified Hematuria presence: without hematuria Qualified Code(s): N39.0 - Urinary tract infection, site not specified Assessment/Plan Laboratory Tests 01/14/18 01/14/18 01/14/18 15:47 15:47 15:47 WBC 18.1 H Hgb 11.0 L Hct 35.0 L D Plt Count 596 H D Neutrophils % (Manual) 81.0 Lymphocytes % 11.5 D Lymphocytes % (Manual) 10.0 ABG pH ABG pCO2 at Pt Temp ABG pO2 at Pt Temp BUN 22 H Creatinine 1.3 Creat Clearance w eGFR > 60 Lactic Acid 1.5 Ur Leukocyte Esterase Urine WBC (Auto) Urine RBC (Auto) 01/14/18 01/15/18 16:54 07:45 WBC Hgb Hct Plt Count Neutrophils % (Manual) Lymphocytes % Lymphocytes % (Manual) ABG pH 7.18 L* ABG pCO2 at Pt Temp 54.6 H ABG pO2 at Pt Temp 65.1 L BUN Creatinine Creat Clearance w eGFR Lactic Acid Ur Leukocyte Esterase 2+ H Urine WBC (Auto) 13 Urine RBC (Auto) 1 Assessment Sepsis syndrome Respiratory failure Pneumonia possible ( difficult chest xray to read) UTI from a health care facility though no recent admission. Plan Pending cultures Miguel Felix MD
[2018-01-15] MEDS ORDERED: SODIUM CHLORIDE 0.9% 500 ML INFUS.BAG IV ONE (08:48)
[2018-01-15] MEDS ORDERED: SODIUM CHLORIDE 0.9% 1000 ML INFUS.BAG IV ONE (08:50)
[2018-01-15] MEDS: TOPIRAMATE 100 MG TABLET GT SCH ×2 (08:59→21:04)
[2018-01-15] MEDS: ALBUTEROL SO4 2.5/IPRATROPIUM 0.5 INH SOL 3 ML VIAL.NEB. NEB PRN ×2 (09:00→22:52)
--- NOTE | 2018-01-15 09:29 | CONS ---
DATE OF CONSULTATION: DATE OF DICTATION: 01/15/2018 INFECTIOUS DISEASE CONSULTATION HISTORY OF PRESENT ILLNESS: This is a 27-year-old male from the [facility], whom I am asked to see in the intensive care unit for evaluation of respiratory distress following seizures earlier this morning, on the floor. He had been admitted through the emergency room yesterday with a history of difficulty breathing, wheezing, hypoxemia and hypothermia. The possibility of sepsis and pneumonia were considered, and he was initially rapidly treated with antibiotics. Earlier today he developed a seizure on the floor, for which he was then transferred to the intensive care unit in respiratory distress. PAST MEDICAL HISTORY: Includes chronic aspirations, pneumonias (although no recent admissions), seizure disorder, profound mental retardation with microcephaly, paraplegia, spinal fusion and right hip osteotomy. MEDICATIONS: Include diazepam, Bactrim, topiramate. ALLERGIES: None known. SOCIAL HISTORY: Resident of the [facility]. No history of smoking, alcohol or substance abuse. FAMILY HISTORY: Unobtainable. REVIEW OF SYSTEMS: Respiratory: Tachypnea. Cardiac: No history of chest pain, syncope, murmur. Gastrointestinal: PEG feeding tube. No abdominal pain, vomiting, diarrhea, hematemesis, blood per rectum. Genitourinary: Incontinent of urine. No gross hematuria noted. PHYSICAL EXAMINATION: General: A young contracted male. Vital Signs: Initial temperature 92.3, currently 97.5. Pulse 112, blood pressure 112/69, respirations 26. Neck: Supple. Lungs: Coarse rhonchi bilaterally. Heart: S1, S2. Regular rhythm with no audible murmur. Abdomen: Soft, nontender, without hepatosplenomegaly. PEG feeding tube. Extremities: Contracted. No peripheral edema. DIAGNOSTIC STUDIES: Urinalysis: 2+ leukocyte esterase, 13 WBCs, 1 RBC. White count 18,000 with a left shift and 6% bands; hemoglobin 11; platelets 596. INR not yet completed. BUN 23, creatinine 1.3, alkaline phosphatase 166, lactic acid 1.5. Chest x-ray was reviewed. Difficult to assess for infiltrate. It does not appear to be significantly changed from previous x-rays. Elevated right hemidiaphragm noted, with sternal sutures and a valve replacement. ASSESSMENT: Sepsis syndrome in this 27-year-old [place] resident who presents with respiratory distress, recurrent seizures in the hospital, history of aspiration pneumonia, and an x-ray showing heart valve replacement. He has been treated with a dose of vancomycin and had blood cultures drawn. PLAN: I will continue him on piperacillin and tazobactam for coverage of gram-negative rods, respiratory and urinary pathogens, including possible aspiration pneumonia. Await blood and urine cultures. Obtain a Legionella urinary antigen, CRP and ESR. JANNETTE MCLEOD M.D. [id number]
[2018-01-15] MEDS ORDERED: PHENYLEPHRINE HCL 10 MG/1 ML SINGLE DOSE VIAL ONE ×2 (09:32→21:07)
[2018-01-15] MEDS: PHENYLEPHRINE HCL 20,000 MCG in SODIUM CHLORIDE 248 ML IVPB SCH (09:39)
[2018-01-15] MEDS: diazePAM 5 MG TABLET GT SCH (09:43)
[2018-01-15] MEDS: PIPERACILLIN/TAZOB 4.5 GM 4.5 GM in DEXTROSE 5%-WATER 100 ML IVPB SCH ×2 (09:48→17:26)
[2018-01-15] MEDS: methylPREDNISolone NA SUCC 40 MG/1 ML VIAL IVPUSH SCH (09:48)
[2018-01-15] MEDS ORDERED: levETIRAcetam 500 MG/5 ML INJECTION VIAL IVPB ONE ×2 (11:09→18:30)
--- NOTE | 2018-01-15 11:29 | EKG ---
Test Reason : Blood Pressure : / mmHG Vent. Rate : 095 BPM Atrial Rate : 095 BPM P-R Int : 142 ms QRS Dur : 080 ms QT Int : 360 ms P-R-T Axes : 026 079 014 degrees QTc Int : 452 ms NORMAL SINUS RHYTHM NORMAL ECG WHEN COMPARED WITH ECG OF 09-APR-2011 17:39, NO SIGNIFICANT CHANGE WAS FOUND Confirmed by NERY SANDOVAL MD ([id number]) on 01/15/2018 11:28:39 AM Referred By: Confirmed By:NERY SANDOVAL MD
[2018-01-15] MEDS: cloBAZam 10 MG TABLET PO SCH ×2 (11:36→21:04)
--- NOTE | 2018-01-15 11:46 | PN ---
Teaching Attending Note Name of Resident: Dario Puhg ATTENDING PHYSICIAN STATEMENT I saw and evaluated the patient. I reviewed the resident's note and discussed the case with the resident. I agree with the resident's findings and plan as documented. SUBJECTIVE: Patient seen and examined in the ICU. 27 M, chronic aspiration, PNA, asthma, PEG tube, UTI, seizure disorder, profound MR/DD, microcephaly, paraplegia, scoliosis, spinal fusion, right hip osteotomy, wheelchair bound at baseline. Admitted via the ER from [facility] for difficulty breathing, cough, and wheezing. Suspicion of recurrent aspiration. Seen in the ICU. Not able to provide a history. Currently on 50 mcq Phenylephrine for hemodynamic support. Intake & Output 01/12/18 01/13/18 01/14/18 01/15/18 23:59 23:59 23:59 23:59 Intake Total 1800 Output Total 1200 Balance 1800 -1200 Weight 121 lb Last Vital Signs Temp Pulse Resp BP Pulse Ox 97.5 F L 90 26 H 68/38 100 01/15/18 06:00 01/15/18 09:39 01/15/18 08:00 01/15/18 09:39 01/15/18 09:00 Active Medications Albuterol/Ipratropium (Duoneb -) 1 amp NEB Q4H PRN PRN Reason: SHORTNESS OF BREATH Last Admin: 01/15/18 09:00 Dose: 1 amp Baclofen (Lioresal -) 10 mg GT TID [facility] Clobazam (Onfi -) 15 mg PO BID [facility] Last Admin: 01/15/18 11:36 Dose: 15 mg Diazepam (Valium -) 5 mg GT DAILY [facility] Last Admin: 01/15/18 09:43 Dose: Not Given Diazepam (Diastat Rectal Gel -) 10 mg RC DAILY PRN PRN Reason: seisure above 3mins, notify Last Admin: 01/15/18 09:00 Dose: 10 mg Heparin Sodium (Porcine) (Heparin -) 5,000 unit SQ TID [facility] Last Admin: 01/15/18 06:00 Dose: 5,000 unit Sodium Chloride (Normal Saline -) 1,000 mls @ 42 mls/hr IV ASDIR [facility] Last Admin: 01/15/18 04:45 Dose: 42 mls/hr Piperacillin Sod/Tazobactam (Sod 4.5 gm/ Dextrose) 100 mls @ 200 mls/hr IVPB Q8H-IV JULIO; Protocol Last Admin: 01/15/18 09:48 Dose: 200 mls/hr Phenylephrine HCl 20,000 mcg/ (Sodium Chloride) 250 mls @ 75 mls/hr IVPB TITR JULIO; Protocol Last Admin: 01/15/18 09:39 Dose: 100 mcg/min, 75 mls/hr Methylprednisolone Sodium Succinate (Solu-Medrol -) 40 mg IVPUSH DAILY JULIO Last Admin: 01/15/18 09:48 Dose: 40 mg Topiramate (Topamax -) 100 mg GT BID JULIO Last Admin: 01/15/18 08:59 Dose: 100 mg HEENT: (-) Pallor, (-) Icterus Neck: Supple, nontender. No palpable adenopathy or thyromegaly. No JVD Chest: Scattered coarse rhonchi and wheezing Heart: Regular. No S3, rub or murmur Abdomen: Not distended, soft, nontender and no HSM. PEG in place. No rebound or guarding. Normoactive bowel sounds. Ext: Peripheral pulses intact. No leg edema. Limb contractures. Bates in place. Skin: Warm and dry. No petechiae, rash or ecchymosis. Neuro: Unable to follow commands. Paraplegia. Laboratory Results - last 24 hr 01/14/18 01/14/18 01/14/18 15:47 15:47 15:47 WBC 18.1 H RBC 3.71 L Hgb 11.0 L Hct 35.0 L D MCV 94.3 MCH 29.7 MCHC 31.5 L RDW 16.1 H Plt Count 596 H D MPV 7.0 L D Absolute Neuts (auto) 15.1 Total Counted 100 Neutrophils % 83.2 H D Neutrophils % (Manual) 81.0 Band Neutrophils % 6.0 Lymphocytes % 11.5 D Lymphocytes % (Manual) 10.0 Monocytes % 4.7 Monocytes % (Manual) 3 L Eosinophils % 0.2 D Basophils % 0.4 Nucleated RBC % 0 Hypochromia 1+ Platelet Estimate Increased Platelet Comment No clumping noted Poikilocytosis 1+ Anisocytosis 1+ Macrocytosis 1+ PT with INR Cancelled INR Cancelled PTT (Actin FS) Cancelled Puncture Site ABG pH ABG pCO2 at Pt Temp ABG pO2 at Pt Temp ABG HCO3 ABG O2 Sat (Measured) ABG O2 Content ABG Base Excess Eliezer Test VBG pH POC VBG pCO2 POC VBG pO2 Mixed VBG HCO3 O2 Delivery Device Oxygen Flow Rate PEEP Sodium 137 Potassium 4.3 Chloride 104 Carbon Dioxide 21 Anion Gap 12 BUN 22 H Creatinine 1.3 Creat Clearance w eGFR > 60 Random Glucose 139 H D Lactic Acid Calcium 9.3 Total Bilirubin 0.2 AST 35 D ALT 27 D Alkaline Phosphatase 166 H Creatine Kinase 60 CK-MB (CK-2) 1.90 Troponin I Total Protein 8.9 H Albumin 2.7 L TSH Urine Color Urine Appearance Urine pH Ur Specific [place] Urine Protein Urine Glucose (UA) Urine Ketones Urine Blood Urine Nitrite Urine Bilirubin Urine Urobilinogen Ur Leukocyte Esterase Urine WBC (Auto) Urine RBC (Auto) Urine Bacteria Urine Mucus Stool Occult Blood Anti-A Titer Blood Type Antibody Screen 01/14/18 01/14/18 01/14/18 15:47 15:47 15:47 WBC RBC Hgb Hct MCV MCH MCHC RDW Plt Count MPV Absolute Neuts (auto) Total Counted Neutrophils % Neutrophils % (Manual) Band Neutrophils % Lymphocytes % Lymphocytes % (Manual) Monocytes % Monocytes % (Manual) Eosinophils % Basophils % Nucleated RBC % Hypochromia Platelet Estimate Platelet Comment Poikilocytosis Anisocytosis Macrocytosis PT with INR INR PTT (Actin FS) Puncture Site ABG pH ABG pCO2 at Pt Temp ABG pO2 at Pt Temp ABG HCO3 ABG O2 Sat (Measured) ABG O2 Content ABG Base Excess Eliezer Test VBG pH POC VBG pCO2 POC VBG pO2 Mixed VBG HCO3 O2 Delivery Device Oxygen Flow Rate PEEP Sodium Potassium Chloride Carbon Dioxide Anion Gap BUN Creatinine Creat Clearance w eGFR Random Glucose Lactic Acid 1.5 Calcium Total Bilirubin AST ALT Alkaline Phosphatase Creatine Kinase CK-MB (CK-2) Troponin I < 0.02 Total Protein Albumin TSH Urine Color Urine Appearance Urine pH Ur Specific [place] Urine Protein Urine Glucose (UA) Urine Ketones Urine Blood Urine Nitrite Urine Bilirubin Urine Urobilinogen Ur Leukocyte Esterase Urine WBC (Auto) Urine RBC (Auto) Urine Bacteria Urine Mucus Stool Occult Blood Anti-A Titer Cancelled Blood Type Cancelled Antibody Screen Cancelled 01/14/18 01/14/18 01/14/18 15:52 16:10 16:29 WBC RBC Hgb Hct MCV MCH MCHC RDW Plt Count MPV Absolute Neuts (auto) Total Counted Neutrophils % Neutrophils % (Manual) Band Neutrophils % Lymphocytes % Lymphocytes % (Manual) Monocytes % Monocytes % (Manual) Eosinophils % Basophils % Nucleated RBC % Hypochromia Platelet Estimate Platelet Comment Poikilocytosis Anisocytosis Macrocytosis PT with INR Cancelled INR Cancelled PTT (Actin FS) Cancelled Puncture Site ABG pH ABG pCO2 at Pt Temp ABG pO2 at Pt Temp ABG HCO3 ABG O2 Sat (Measured) ABG O2 Content ABG Base Excess Eliezer Test VBG pH 7.20 L* POC VBG pCO2 58.2 H POC VBG pO2 36.4 Mixed VBG HCO3 22.2 O2 Delivery Device Oxygen Flow Rate PEEP Sodium Potassium Chloride Carbon Dioxide Anion Gap BUN Creatinine Creat Clearance w eGFR Random Glucose Lactic Acid Calcium Total Bilirubin AST ALT Alkaline Phosphatase Creatine Kinase CK-MB (CK-2) Troponin I Total Protein Albumin TSH Urine Color Urine Appearance Urine pH Ur Specific [place] Urine Protein Urine Glucose (UA) Urine Ketones Urine Blood Urine Nitrite Urine Bilirubin Urine Urobilinogen Ur Leukocyte Esterase Urine WBC (Auto) Urine RBC (Auto) Urine Bacteria Urine Mucus Stool Occult Blood Negative Anti-A Titer Blood Type Antibody Screen 01/14/18 01/14/18 01/15/18 16:54 17:50 07:45 WBC RBC Hgb Hct MCV MCH MCHC RDW Plt Count MPV Absolute Neuts (auto) Total Counted Neutrophils % Neutrophils % (Manual) Band Neutrophils % Lymphocytes % Lymphocytes % (Manual) Monocytes % Monocytes % (Manual) Eosinophils % Basophils % Nucleated RBC % Hypochromia Platelet Estimate Platelet Comment Poikilocytosis Anisocytosis Macrocytosis PT with INR INR PTT (Actin FS) Puncture Site Right radial ABG pH 7.18 L* ABG pCO2 at Pt Temp 54.6 H ABG pO2 at Pt Temp 65.1 L ABG HCO3 19.6 L ABG O2 Sat (Measured) 91.2 ABG O2 Content 12.4 L ABG Base Excess -8.3 L Eliezer Test Positive VBG pH POC VBG pCO2 POC VBG pO2 Mixed VBG HCO3 O2 Delivery Device Nrm Oxygen Flow Rate 100% PEEP 0.0 Sodium Potassium Chloride Carbon Dioxide Anion Gap BUN Creatinine Creat Clearance w eGFR Random Glucose Lactic Acid 1.5 Calcium Total Bilirubin AST ALT Alkaline Phosphatase Creatine Kinase CK-MB (CK-2) Troponin I Total Protein Albumin TSH Urine Color Yellow Urine Appearance Slcloudy Urine pH 6.0 D Ur Specific [place] 1.006 Urine Protein Negative Urine Glucose (UA) Negative Urine Ketones Negative Urine Blood Negative Urine Nitrite Negative Urine Bilirubin Negative Urine Urobilinogen Negative Ur Leukocyte Esterase 2+ H Urine WBC (Auto) 13 Urine RBC (Auto) 1 Urine Bacteria Few Urine Mucus Rare Stool Occult Blood Anti-A Titer Blood Type Antibody Screen 01/15/18 01/15/18 01/15/18 08:36 08:36 08:48 WBC RBC Hgb Hct MCV MCH MCHC RDW Plt Count MPV Absolute Neuts (auto) Total Counted Neutrophils % Neutrophils % (Manual) Band Neutrophils % Lymphocytes % Lymphocytes % (Manual) Monocytes % Monocytes % (Manual) Eosinophils % Basophils % Nucleated RBC % Hypochromia Platelet Estimate Platelet Comment Poikilocytosis Anisocytosis Macrocytosis PT with INR INR PTT (Actin FS) Puncture Site ABG pH ABG pCO2 at Pt Temp ABG pO2 at Pt Temp ABG HCO3 ABG O2 Sat (Measured) ABG O2 Content ABG Base Excess Eliezer Test VBG pH POC VBG pCO2 POC VBG pO2 Mixed VBG HCO3 O2 Delivery Device Oxygen Flow Rate PEEP Sodium Potassium Chloride Carbon Dioxide Anion Gap BUN Creatinine Creat Clearance w eGFR Random Glucose Lactic Acid 1.8 Calcium Total Bilirubin AST ALT Alkaline Phosphatase Creatine Kinase CK-MB (CK-2) Troponin I Total Protein Albumin TSH 2.55 D Urine Color Urine Appearance Urine pH Ur Specific [place] Urine Protein Urine Glucose (UA) Urine Ketones Urine Blood Urine Nitrite Urine Bilirubin Urine Urobilinogen Ur Leukocyte Esterase Urine WBC (Auto) Urine RBC (Auto) Urine Bacteria Urine Mucus Stool Occult Blood Negative Anti-A Titer Blood Type Antibody Screen ASSESSMENT AND PLAN: Sepsis due to HCAP versus Aspiration Pneumonitis Acute hypercapneic respiratory failure Hypothermia MR Paraplegia Asthma Anemia PLAN: ABX per ID Aspiration precautions O2 as needed Follow ABG: May need intubation Enteral feeds BD TX Steroids Wean pressors VTE prophylaxis Dr Brito Critical care time spent in reviewing chart, evaluating patient and formulating plan - 36 minutes.
[2018-01-15 13:40] LABS: ARTERIAL BLD GAS O2 SATURATION 98.9 % (90-98.9); ARTERIAL BLOOD GAS BASE EXCESS -8.1 meq/l (-2-2); ARTERIAL BLOOD GAS PCO2 52.5 mmHg (35-45)
[2018-01-15 13:43] LABS: ALLENS TEST POSITIVE
[2018-01-15 13:46] LABS: ARTERIAL BLOOD GAS pH 7.19 (7.35-7.45)
[2018-01-15] MEDS: BACLOFEN 10 MG TABLET (FP) GT SCH ×2 (14:16→22:00)
--- NOTE | 2018-01-15 14:37 | PN ---
Physical Exam: SUBJECTIVE: During assessment in the morning, patient actively seized and became apneic, tachypneic and hypoxic. Pt was transferred to ICU for airway protection. Patient was seen and examined at bedside in the ICU. Pt was hypotensive at 68/37 and was given Phenylephrine for hypotension. Currently resting comfortably on nonrebreather. BP at 132/58. OBJECTIVE: Vital Signs Period Temp Pulse Resp BP Sys/Saha Pulse Ox Last 24 Hr 92.2 F-98 F 67-112 11-27 68-122/37-94 84-100 GENERAL: Nonverbal, paraplegic. HEENT: NC/AT. On nasal cannula. NECK: no LAD. No JVD. LUNGS: Bilateral wheezes present. No accessory muscle use. HEART: Regular rate and rhythm, S1, S2 without murmur, rub or gallop. ABDOMEN: Soft, nontender, nondistended, normoactive bowel sounds, no masses. EXTREMITIES: No peripheral edema noted. B/l lower extremities contracted. NEUROLOGICAL: Unable to perform. SKIN: Warm, dry, normal turgor, no rashes or lesions noted Laboratory Results - last 24 hr 01/14/18 01/14/18 01/14/18 15:47 15:47 15:47 WBC 18.1 H RBC 3.71 L Hgb 11.0 L Hct 35.0 L D MCV 94.3 MCH 29.7 MCHC 31.5 L RDW 16.1 H Plt Count 596 H D MPV 7.0 L D Absolute Neuts (auto) 15.1 Total Counted 100 Neutrophils % 83.2 H D Neutrophils % (Manual) 81.0 Band Neutrophils % 6.0 Lymphocytes % 11.5 D Lymphocytes % (Manual) 10.0 Monocytes % 4.7 Monocytes % (Manual) 3 L Eosinophils % 0.2 D Basophils % 0.4 Nucleated RBC % 0 Hypochromia 1+ Platelet Estimate Increased Platelet Comment No clumping noted Poikilocytosis 1+ Anisocytosis 1+ Macrocytosis 1+ PT with INR Cancelled INR Cancelled PTT (Actin FS) Cancelled Puncture Site ABG pH ABG pCO2 at Pt Temp ABG pO2 at Pt Temp ABG HCO3 ABG O2 Sat (Measured) ABG O2 Content ABG Base Excess Eliezer Test VBG pH POC VBG pCO2 POC VBG pO2 Mixed VBG HCO3 O2 Delivery Device Oxygen Flow Rate Mechanical Rate PEEP Sodium 137 Potassium 4.3 Chloride 104 Carbon Dioxide 21 Anion Gap 12 BUN 22 H Creatinine 1.3 Creat Clearance w eGFR > 60 Random Glucose 139 H D Lactic Acid Calcium 9.3 Total Bilirubin 0.2 AST 35 D ALT 27 D Alkaline Phosphatase 166 H Creatine Kinase 60 CK-MB (CK-2) 1.90 Troponin I Total Protein 8.9 H Albumin 2.7 L TSH Urine Color Urine Appearance Urine pH Ur Specific [place] Urine Protein Urine Glucose (UA) Urine Ketones Urine Blood Urine Nitrite Urine Bilirubin Urine Urobilinogen Ur Leukocyte Esterase Urine WBC (Auto) Urine RBC (Auto) Urine Bacteria Urine Mucus Stool Occult Blood Anti-A Titer Blood Type Antibody Screen 01/14/18 01/14/18 01/14/18 15:47 15:47 15:47 WBC RBC Hgb Hct MCV MCH MCHC RDW Plt Count MPV Absolute Neuts (auto) Total Counted Neutrophils % Neutrophils % (Manual) Band Neutrophils % Lymphocytes % Lymphocytes % (Manual) Monocytes % Monocytes % (Manual) Eosinophils % Basophils % Nucleated RBC % Hypochromia Platelet Estimate Platelet Comment Poikilocytosis Anisocytosis Macrocytosis PT with INR INR PTT (Actin FS) Puncture Site ABG pH ABG pCO2 at Pt Temp ABG pO2 at Pt Temp ABG HCO3 ABG O2 Sat (Measured) ABG O2 Content ABG Base Excess Eliezer Test VBG pH POC VBG pCO2 POC VBG pO2 Mixed VBG HCO3 O2 Delivery Device Oxygen Flow Rate Mechanical Rate PEEP Sodium Potassium Chloride Carbon Dioxide Anion Gap BUN Creatinine Creat Clearance w eGFR Random Glucose Lactic Acid 1.5 Calcium Total Bilirubin AST ALT Alkaline Phosphatase Creatine Kinase CK-MB (CK-2) Troponin I < 0.02 Total Protein Albumin TSH Urine Color Urine Appearance Urine pH Ur Specific [place] Urine Protein Urine Glucose (UA) Urine Ketones Urine Blood Urine Nitrite Urine Bilirubin Urine Urobilinogen Ur Leukocyte Esterase Urine WBC (Auto) Urine RBC (Auto) Urine Bacteria Urine Mucus Stool Occult Blood Anti-A Titer Cancelled Blood Type Cancelled Antibody Screen Cancelled 01/14/18 01/14/18 01/14/18 15:52 16:10 16:29 WBC RBC Hgb Hct MCV MCH MCHC RDW Plt Count MPV Absolute Neuts (auto) Total Counted Neutrophils % Neutrophils % (Manual) Band Neutrophils % Lymphocytes % Lymphocytes % (Manual) Monocytes % Monocytes % (Manual) Eosinophils % Basophils % Nucleated RBC % Hypochromia Platelet Estimate Platelet Comment Poikilocytosis Anisocytosis Macrocytosis PT with INR Cancelled INR Cancelled PTT (Actin FS) Cancelled Puncture Site ABG pH ABG pCO2 at Pt Temp ABG pO2 at Pt Temp ABG HCO3 ABG O2 Sat (Measured) ABG O2 Content ABG Base Excess Eliezer Test VBG pH 7.20 L* POC VBG pCO2 58.2 H POC VBG pO2 36.4 Mixed VBG HCO3 22.2 O2 Delivery Device Oxygen Flow Rate Mechanical Rate PEEP Sodium Potassium Chloride Carbon Dioxide Anion Gap BUN Creatinine Creat Clearance w eGFR Random Glucose Lactic Acid Calcium Total Bilirubin AST ALT Alkaline Phosphatase Creatine Kinase CK-MB (CK-2) Troponin I Total Protein Albumin TSH Urine Color Urine Appearance Urine pH Ur Specific [place] Urine Protein Urine Glucose (UA) Urine Ketones Urine Blood Urine Nitrite Urine Bilirubin Urine Urobilinogen Ur Leukocyte Esterase Urine WBC (Auto) Urine RBC (Auto) Urine Bacteria Urine Mucus Stool Occult Blood Negative Anti-A Titer Blood Type Antibody Screen 01/14/18 01/14/18 01/15/18 16:54 17:50 07:45 WBC RBC Hgb Hct MCV MCH MCHC RDW Plt Count MPV Absolute Neuts (auto) Total Counted Neutrophils % Neutrophils % (Manual) Band Neutrophils % Lymphocytes % Lymphocytes % (Manual) Monocytes % Monocytes % (Manual) Eosinophils % Basophils % Nucleated RBC % Hypochromia Platelet Estimate Platelet Comment Poikilocytosis Anisocytosis Macrocytosis PT with INR INR PTT (Actin FS) Puncture Site Right radial ABG pH 7.18 L* ABG pCO2 at Pt Temp 54.6 H ABG pO2 at Pt Temp 65.1 L ABG HCO3 19.6 L ABG O2 Sat (Measured) 91.2 ABG O2 Content 12.4 L ABG Base Excess -8.3 L Eliezer Test Positive VBG pH POC VBG pCO2 POC VBG pO2 Mixed VBG HCO3 O2 Delivery Device Nrm Oxygen Flow Rate 100% Mechanical Rate PEEP 0.0 Sodium Potassium Chloride Carbon Dioxide Anion Gap BUN Creatinine Creat Clearance w eGFR Random Glucose Lactic Acid 1.5 Calcium Total Bilirubin AST ALT Alkaline Phosphatase Creatine Kinase CK-MB (CK-2) Troponin I Total Protein Albumin TSH Urine Color Yellow Urine Appearance Slcloudy Urine pH 6.0 D Ur Specific [place] 1.006 Urine Protein Negative Urine Glucose (UA) Negative Urine Ketones Negative Urine Blood Negative Urine Nitrite Negative Urine Bilirubin Negative Urine Urobilinogen Negative Ur Leukocyte Esterase 2+ H Urine WBC (Auto) 13 Urine RBC (Auto) 1 Urine Bacteria Few Urine Mucus Rare Stool Occult Blood Anti-A Titer Blood Type Antibody Screen 01/15/18 01/15/18 01/15/18 08:36 08:36 08:48 WBC RBC Hgb Hct MCV MCH MCHC RDW Plt Count MPV Absolute Neuts (auto) Total Counted Neutrophils % Neutrophils % (Manual) Band Neutrophils % Lymphocytes % Lymphocytes % (Manual) Monocytes % Monocytes % (Manual) Eosinophils % Basophils % Nucleated RBC % Hypochromia Platelet Estimate Platelet Comment Poikilocytosis Anisocytosis Macrocytosis PT with INR INR PTT (Actin FS) Puncture Site ABG pH ABG pCO2 at Pt Temp ABG pO2 at Pt Temp ABG HCO3 ABG O2 Sat (Measured) ABG O2 Content ABG Base Excess Eliezer Test VBG pH POC VBG pCO2 POC VBG pO2 Mixed VBG HCO3 O2 Delivery Device Oxygen Flow Rate Mechanical Rate PEEP Sodium Potassium Chloride Carbon Dioxide Anion Gap BUN Creatinine Creat Clearance w eGFR Random Glucose Lactic Acid 1.8 Calcium Total Bilirubin AST ALT Alkaline Phosphatase Creatine Kinase CK-MB (CK-2) Troponin I Total Protein Albumin TSH 2.55 D Urine Color Urine Appearance Urine pH Ur Specific [place] Urine Protein Urine Glucose (UA) Urine Ketones Urine Blood Urine Nitrite Urine Bilirubin Urine Urobilinogen Ur Leukocyte Esterase Urine WBC (Auto) Urine RBC (Auto) Urine Bacteria Urine Mucus Stool Occult Blood Negative Anti-A Titer Blood Type Antibody Screen 01/15/18 13:25 WBC RBC Hgb Hct MCV MCH MCHC RDW Plt Count MPV Absolute Neuts (auto) Total Counted Neutrophils % Neutrophils % (Manual) Band Neutrophils % Lymphocytes % Lymphocytes % (Manual) Monocytes % Monocytes % (Manual) Eosinophils % Basophils % Nucleated RBC % Hypochromia Platelet Estimate Platelet Comment Poikilocytosis Anisocytosis Macrocytosis PT with INR INR PTT (Actin FS) Puncture Site Right radial ABG pH 7.19 L* ABG pCO2 at Pt Temp 52.5 H ABG pO2 at Pt Temp 152.0 H* ABG HCO3 19.4 L ABG O2 Sat (Measured) 98.9 ABG O2 Content 12.4 L ABG Base Excess -8.1 L Eliezer Test Positive VBG pH POC VBG pCO2 POC VBG pO2 Mixed VBG HCO3 O2 Delivery Device Nonrebreather Oxygen Flow Rate 100% Mechanical Rate No PEEP 0.0 Sodium Potassium Chloride Carbon Dioxide Anion Gap BUN Creatinine Creat Clearance w eGFR Random Glucose Lactic Acid Calcium Total Bilirubin AST ALT Alkaline Phosphatase Creatine Kinase CK-MB (CK-2) Troponin I Total Protein Albumin TSH Urine Color Urine Appearance Urine pH Ur Specific [place] Urine Protein Urine Glucose (UA) Urine Ketones Urine Blood Urine Nitrite Urine Bilirubin Urine Urobilinogen Ur Leukocyte Esterase Urine WBC (Auto) Urine RBC (Auto) Urine Bacteria Urine Mucus Stool Occult Blood Anti-A Titer Blood Type Antibody Screen Active Medications Generic Name Dose Route Start Last Admin Trade Name Freq PRN Reason Stop Dose Admin Albuterol/Ipratropium 1 amp 01/15/18 00:50 01/15/18 09:00 Duoneb - NEB 1 amp Q4H PRN Administration SHORTNESS OF BREATH Baclofen 10 mg 01/15/18 14:00 01/15/18 14:16 Lioresal - GT 10 mg TID JULIO Administration Clobazam 15 mg 01/15/18 10:00 01/15/18 11:36 Onfi - PO 15 mg BID JULIO Administration Diazepam 5 mg 01/15/18 10:00 01/15/18 09:43 Valium - GT Not Given DAILY JULIO Diazepam 10 mg 01/15/18 08:39 01/15/18 09:00 Diastat Rectal Gel - RC 10 mg DAILY PRN Administration seisure above 3mins, notify Heparin Sodium (Porcine) 5,000 unit 01/15/18 06:00 01/15/18 14:16 Heparin - SQ 5,000 unit TID JULIO Administration Sodium Chloride 1,000 mls @ 42 mls/hr 01/15/18 02:45 01/15/18 04:45 Normal Saline - IV 42 mls/hr ASDIR JULIO Administration Piperacillin Sod/Tazobactam 100 mls @ 200 mls/hr 01/15/18 10:00 01/15/18 09: 48 Sod 4.5 gm/ Dextrose IVPB 200 mls/hr Q8H-IV JULIO Administration Protocol Phenylephrine HCl 20,000 mcg/ 250 mls @ 75 mls/hr 01/15/18 09:30 01/15/18 11: 40 Sodium Chloride IVPB 25 mcg/min TITR JULIO 18.75 mls/hr Titration Protocol 100 MCG/MIN Methylprednisolone Sodium Succinate 40 mg 01/15/18 10:00 01/15/18 09:48 Solu-Medrol - IVPUSH 40 mg DAILY JULIO Administration Topiramate 100 mg 01/15/18 10:00 01/15/18 08:59 Topamax - GT 100 mg BID JULIO Administration ASSESSMENT/PLAN: 27 y/o nonverbal male at baseline from [facility] admitted for sepsis 2/2 possible aspiration PNA vs UTI #Sepsis secondary to aspiration/health care acquired pneumonia vs UTI -SIRS criteria: temperature 96.1F, HR 103, RR 26, WBC 18.1 -CXR showed RLL consolidation -f/u chest CT -cont Zosyn4.5 g-Dextrose 100 cc @ 200 cc/hr IVPB -f/u ID consult with Dr. Bauer #Acute Hypoxic Respiratory Failure - desat to 80s this AM, cont to monitor O2 sat, currently stable at 98% - high flow nasal cannula - CXR (01/15/18): Large pleural effusion, increased lung markings noted in L perihilar region, L lower lobe concerning for infectious process - f/u pulm consult with Dr. Murillo #Hypotension; BP 89/51 this AM - started Phenylephrine HCl 20,000 mcg - monitor BP closely #Hypothermia: -Rectal temperature of 92.3F upon admission -Jesus Alberto hugger warming #Seizure d/o; witnessed seizure this AM, continue home sz meds;stable now - started Topiramate 100 mg GT BID - started Valium 5 mg GT QD #Asthma exacerbation -cont Solumedrol 40 mg IV push and Duoneb 1 amp neb Q4 PRN #Anemia -Hb 11, Hct 35 -f/u Iron studies #Hypoalbuminemia -Albumin 2.7 -Likely secondary to malnutrition -Atmospheric Physicist consult requested #Paraplegia: -reposition when needed for comfort #FEN IV NS 42ml/hr No electrolyte repletion NPO for now d/t aspiration risk #Prophylaxis -Heparin 5000 units subq TID Visit type - Emergency Visit Emergency Visit: No - New Patient This patient is new to me today: Yes Date on this admission: 01/15/18 - Critical Care Critical Care patient: Yes Total Critical Care Time (in minutes): 35 Critical Care Statement: The care of this patient involved high complexity decision making to prevent further life threatening deterioration of the patient 's condition and/or to evaluate & treat vital organ system(s) failure or risk of failure.
--- NOTE | 2018-01-15 14:55 | CONSULT ---
Consultation: REQUESTING PROVIDER: CONSULT REQUEST: We have been asked to medically evaluate this patient for respiratory distress. HISTORY OF PRESENT ILLNESS: 27 year old male from [facility] with PMH of severe MR, seizure disorder, chronic aspirations and pneumonias was transferred to the ICU after having a seizure which was followed by respiratory distress. The patient was originally admitted through the ED yesterday for respiratory distress and cough. It was thought that the patient may have an aspiration pneumonia vs HCAP complicated by sepsis. The patient is nonverbal and unable to respond to questioning, but was initially SOB on transfer, though resolved now. REVIEW OF SYSTEMS: Unable to obtain due to patients mental status. PHYSICAL EXAMINATION Vital Signs - 24 hr 01/14/18 01/14/18 01/14/18 16:07 17:13 17:32 Temperature 92.2 F L 92.6 F L Pulse Rate Pulse Rate [ 86 Apical] Respiratory 16 Rate Blood Pressure Blood Pressure 96/67 [Left Arm] O2 Sat by Pulse 100 97 Oximetry (%) 01/14/18 01/14/18 01/14/18 18:33 19:10 19:45 Temperature 94.1 F L 94.6 F L 96.0 F L Pulse Rate 75 Pulse Rate [ 98 H 92 H Apical] Respiratory 25 H 24 24 Rate Blood Pressure 93/42 Blood Pressure 118/64 118/66 [Left Arm] O2 Sat by Pulse 98 100 Oximetry (%) 01/14/18 01/14/18 01/14/18 20:10 20:49 21:12 Temperature 95.2 F L 95.4 F L 94.8 F L Pulse Rate Pulse Rate [ 89 94 H 88 Apical] Respiratory 24 24 22 Rate Blood Pressure Blood Pressure 118/68 122/78 120/68 [Left Arm] O2 Sat by Pulse 100 100 100 Oximetry (%) 01/14/18 01/14/18 01/15/18 22:00 22:15 02:00 Temperature 96.0 F L 96.1 F L 96.2 F L Pulse Rate 75 103 H 111 H Pulse Rate [ Apical] Respiratory 24 26 H 26 H Rate Blood Pressure 93/42 120/67 122/69 Blood Pressure [Left Arm] O2 Sat by Pulse Oximetry (%) 01/15/18 01/15/18 01/15/18 06:00 08:00 08:31 Temperature 97.5 F L 98 F Pulse Rate 111 H 112 H 109 H Pulse Rate [ Apical] Respiratory 26 H 26 H 23 Rate Blood Pressure 118/62 112/69 85/52 Blood Pressure [Left Arm] O2 Sat by Pulse Oximetry (%) 01/15/18 01/15/18 01/15/18 08:47 09:00 09:39 Temperature Pulse Rate 108 H 100 H 90 Pulse Rate [ Apical] Respiratory 27 H 26 H Rate Blood Pressure 81/37 102/55 68/38 Blood Pressure [Left Arm] O2 Sat by Pulse 100 Oximetry (%) 01/15/18 01/15/18 01/15/18 10:00 10:07 10:28 Temperature Pulse Rate 78 99 H 92 H Pulse Rate [ Apical] Respiratory 11 L Rate Blood Pressure 102/72 108/94 113/75 Blood Pressure [Left Arm] O2 Sat by Pulse Oximetry (%) 01/15/18 01/15/18 01/15/18 10:47 11:07 11:21 Temperature Pulse Rate 95 H 89 92 H Pulse Rate [ Apical] Respiratory 22 11 L Rate Blood Pressure 116/70 116/70 103/63 Blood Pressure [Left Arm] O2 Sat by Pulse Oximetry (%) 01/15/18 01/15/18 01/15/18 11:39 11:40 12:16 Temperature Pulse Rate 86 89 78 Pulse Rate [ Apical] Respiratory 13 Rate Blood Pressure 87/47 89/51 89/51 Blood Pressure [Left Arm] O2 Sat by Pulse Oximetry (%) 01/15/18 01/15/18 13:00 14:35 Temperature Pulse Rate 75 Pulse Rate [ Apical] Respiratory 16 Rate Blood Pressure 93/52 Blood Pressure [Left Arm] O2 Sat by Pulse 98 Oximetry (%) GENERAL: Awake, nonverbal with severe mr, in no acute distress. HEAD: Microcephaly with no signs of trauma. EYES: Pupils equal, round and reactive to light, extraocular movements intact, sclera anicteric, conjunctiva clear. No lid lag. EARS, NOSE, THROAT: Ears normal, nares patent, oropharynx clear without exudates. Moist mucous membranes. NECK: supple without lymphadenopathy, JVD, or masses. LUNGS: Breath sounds diffusely course with some expiratory wheezes. No accessory muscle use. HEART: Regular rate and rhythm, normal S1 and S2 without murmur, rub or gallop. ABDOMEN: G-tube in place, Soft, nontender, not distended, normoactive bowel sounds, no guarding, no rebound, no masses. MUSCULOSKELETAL: Contracted and lying on right side. No bony deformities or tenderness. No CVA tenderness. UPPER EXTREMITIES: 2+ pulses, warm, well-perfused. No cyanosis or edema LOWER EXTREMITIES: 2+ pulses, warm, well-perfused. No peripheral edema. NEUROLOGICAL: Nonverbal. wheelchair bound when out of bed. Unable to follow commands. PSYCHIATRIC: Cooperative. Poor eye contact. SKIN: Warm, dry, normal turgor, no rashes or lesions noted. Laboratory Results - last 24 hr 01/14/18 01/14/18 01/14/18 15:47 15:47 15:47 WBC 18.1 H RBC 3.71 L Hgb 11.0 L Hct 35.0 L D MCV 94.3 MCH 29.7 MCHC 31.5 L RDW 16.1 H Plt Count 596 H D MPV 7.0 L D Absolute Neuts (auto) 15.1 Total Counted 100 Neutrophils % 83.2 H D Neutrophils % (Manual) 81.0 Band Neutrophils % 6.0 Lymphocytes % 11.5 D Lymphocytes % (Manual) 10.0 Monocytes % 4.7 Monocytes % (Manual) 3 L Eosinophils % 0.2 D Basophils % 0.4 Nucleated RBC % 0 Hypochromia 1+ Platelet Estimate Increased Platelet Comment No clumping noted Poikilocytosis 1+ Anisocytosis 1+ Macrocytosis 1+ PT with INR Cancelled INR Cancelled PTT (Actin FS) Cancelled Puncture Site ABG pH ABG pCO2 at Pt Temp ABG pO2 at Pt Temp ABG HCO3 ABG O2 Sat (Measured) ABG O2 Content ABG Base Excess Eliezer Test VBG pH POC VBG pCO2 POC VBG pO2 Mixed VBG HCO3 O2 Delivery Device Oxygen Flow Rate Mechanical Rate PEEP Sodium 137 Potassium 4.3 Chloride 104 Carbon Dioxide 21 Anion Gap 12 BUN 22 H Creatinine 1.3 Creat Clearance w eGFR > 60 Random Glucose 139 H D Lactic Acid Calcium 9.3 Total Bilirubin 0.2 AST 35 D ALT 27 D Alkaline Phosphatase 166 H Creatine Kinase 60 CK-MB (CK-2) 1.90 Troponin I Total Protein 8.9 H Albumin 2.7 L TSH Urine Color Urine Appearance Urine pH Ur Specific [place] Urine Protein Urine Glucose (UA) Urine Ketones Urine Blood Urine Nitrite Urine Bilirubin Urine Urobilinogen Ur Leukocyte Esterase Urine WBC (Auto) Urine RBC (Auto) Urine Bacteria Urine Mucus Stool Occult Blood Anti-A Titer Blood Type Antibody Screen 01/14/18 01/14/18 01/14/18 15:47 15:47 15:47 WBC RBC Hgb Hct MCV MCH MCHC RDW Plt Count MPV Absolute Neuts (auto) Total Counted Neutrophils % Neutrophils % (Manual) Band Neutrophils % Lymphocytes % Lymphocytes % (Manual) Monocytes % Monocytes % (Manual) Eosinophils % Basophils % Nucleated RBC % Hypochromia Platelet Estimate Platelet Comment Poikilocytosis Anisocytosis Macrocytosis PT with INR INR PTT (Actin FS) Puncture Site ABG pH ABG pCO2 at Pt Temp ABG pO2 at Pt Temp ABG HCO3 ABG O2 Sat (Measured) ABG O2 Content ABG Base Excess Eliezer Test VBG pH POC VBG pCO2 POC VBG pO2 Mixed VBG HCO3 O2 Delivery Device Oxygen Flow Rate Mechanical Rate PEEP Sodium Potassium Chloride Carbon Dioxide Anion Gap BUN Creatinine Creat Clearance w eGFR Random Glucose Lactic Acid 1.5 Calcium Total Bilirubin AST ALT Alkaline Phosphatase Creatine Kinase CK-MB (CK-2) Troponin I < 0.02 Total Protein Albumin TSH Urine Color Urine Appearance Urine pH Ur Specific [place] Urine Protein Urine Glucose (UA) Urine Ketones Urine Blood Urine Nitrite Urine Bilirubin Urine Urobilinogen Ur Leukocyte Esterase Urine WBC (Auto) Urine RBC (Auto) Urine Bacteria Urine Mucus Stool Occult Blood Anti-A Titer Cancelled Blood Type Cancelled Antibody Screen Cancelled 01/14/18 01/14/18 01/14/18 15:52 16:10 16:29 WBC RBC Hgb Hct MCV MCH MCHC RDW Plt Count MPV Absolute Neuts (auto) Total Counted Neutrophils % Neutrophils % (Manual) Band Neutrophils % Lymphocytes % Lymphocytes % (Manual) Monocytes % Monocytes % (Manual) Eosinophils % Basophils % Nucleated RBC % Hypochromia Platelet Estimate Platelet Comment Poikilocytosis Anisocytosis Macrocytosis PT with INR Cancelled INR Cancelled PTT (Actin FS) Cancelled Puncture Site ABG pH ABG pCO2 at Pt Temp ABG pO2 at Pt Temp ABG HCO3 ABG O2 Sat (Measured) ABG O2 Content ABG Base Excess Eliezer Test VBG pH 7.20 L* POC VBG pCO2 58.2 H POC VBG pO2 36.4 Mixed VBG HCO3 22.2 O2 Delivery Device Oxygen Flow Rate Mechanical Rate PEEP Sodium Potassium Chloride Carbon Dioxide Anion Gap BUN Creatinine Creat Clearance w eGFR Random Glucose Lactic Acid Calcium Total Bilirubin AST ALT Alkaline Phosphatase Creatine Kinase CK-MB (CK-2) Troponin I Total Protein Albumin TSH Urine Color Urine Appearance Urine pH Ur Specific [place] Urine Protein Urine Glucose (UA) Urine Ketones Urine Blood Urine Nitrite Urine Bilirubin Urine Urobilinogen Ur Leukocyte Esterase Urine WBC (Auto) Urine RBC (Auto) Urine Bacteria Urine Mucus Stool Occult Blood Negative Anti-A Titer Blood Type Antibody Screen 01/14/18 01/14/18 01/15/18 16:54 17:50 07:45 WBC RBC Hgb Hct MCV MCH MCHC RDW Plt Count MPV Absolute Neuts (auto) Total Counted Neutrophils % Neutrophils % (Manual) Band Neutrophils % Lymphocytes % Lymphocytes % (Manual) Monocytes % Monocytes % (Manual) Eosinophils % Basophils % Nucleated RBC % Hypochromia Platelet Estimate Platelet Comment Poikilocytosis Anisocytosis Macrocytosis PT with INR INR PTT (Actin FS) Puncture Site Right radial ABG pH 7.18 L* ABG pCO2 at Pt Temp 54.6 H ABG pO2 at Pt Temp 65.1 L ABG HCO3 19.6 L ABG O2 Sat (Measured) 91.2 ABG O2 Content 12.4 L ABG Base Excess -8.3 L Eliezer Test Positive VBG pH POC VBG pCO2 POC VBG pO2 Mixed VBG HCO3 O2 Delivery Device Nrm Oxygen Flow Rate 100% Mechanical Rate PEEP 0.0 Sodium Potassium Chloride Carbon Dioxide Anion Gap BUN Creatinine Creat Clearance w eGFR Random Glucose Lactic Acid 1.5 Calcium Total Bilirubin AST ALT Alkaline Phosphatase Creatine Kinase CK-MB (CK-2) Troponin I Total Protein Albumin TSH Urine Color Yellow Urine Appearance Slcloudy Urine pH 6.0 D Ur Specific [place] 1.006 Urine Protein Negative Urine Glucose (UA) Negative Urine Ketones Negative Urine Blood Negative Urine Nitrite Negative Urine Bilirubin Negative Urine Urobilinogen Negative Ur Leukocyte Esterase 2+ H Urine WBC (Auto) 13 Urine RBC (Auto) 1 Urine Bacteria Few Urine Mucus Rare Stool Occult Blood Anti-A Titer Blood Type Antibody Screen 01/15/18 01/15/18 01/15/18 08:36 08:36 08:48 WBC RBC Hgb Hct MCV MCH MCHC RDW Plt Count MPV Absolute Neuts (auto) Total Counted Neutrophils % Neutrophils % (Manual) Band Neutrophils % Lymphocytes % Lymphocytes % (Manual) Monocytes % Monocytes % (Manual) Eosinophils % Basophils % Nucleated RBC % Hypochromia Platelet Estimate Platelet Comment Poikilocytosis Anisocytosis Macrocytosis PT with INR INR PTT (Actin FS) Puncture Site ABG pH ABG pCO2 at Pt Temp ABG pO2 at Pt Temp ABG HCO3 ABG O2 Sat (Measured) ABG O2 Content ABG Base Excess Eliezer Test VBG pH POC VBG pCO2 POC VBG pO2 Mixed VBG HCO3 O2 Delivery Device Oxygen Flow Rate Mechanical Rate PEEP Sodium Potassium Chloride Carbon Dioxide Anion Gap BUN Creatinine Creat Clearance w eGFR Random Glucose Lactic Acid 1.8 Calcium Total Bilirubin AST ALT Alkaline Phosphatase Creatine Kinase CK-MB (CK-2) Troponin I Total Protein Albumin TSH 2.55 D Urine Color Urine Appearance Urine pH Ur Specific [place] Urine Protein Urine Glucose (UA) Urine Ketones Urine Blood Urine Nitrite Urine Bilirubin Urine Urobilinogen Ur Leukocyte Esterase Urine WBC (Auto) Urine RBC (Auto) Urine Bacteria Urine Mucus Stool Occult Blood Negative Anti-A Titer Blood Type Antibody Screen 01/15/18 13:25 WBC RBC Hgb Hct MCV MCH MCHC RDW Plt Count MPV Absolute Neuts (auto) Total Counted Neutrophils % Neutrophils % (Manual) Band Neutrophils % Lymphocytes % Lymphocytes % (Manual) Monocytes % Monocytes % (Manual) Eosinophils % Basophils % Nucleated RBC % Hypochromia Platelet Estimate Platelet Comment Poikilocytosis Anisocytosis Macrocytosis PT with INR INR PTT (Actin FS) Puncture Site Right radial ABG pH 7.19 L* ABG pCO2 at Pt Temp 52.5 H ABG pO2 at Pt Temp 152.0 H* ABG HCO3 19.4 L ABG O2 Sat (Measured) 98.9 ABG O2 Content 12.4 L ABG Base Excess -8.1 L Eliezer Test Positive VBG pH POC VBG pCO2 POC VBG pO2 Mixed VBG HCO3 O2 Delivery Device Nonrebreather Oxygen Flow Rate 100% Mechanical Rate No PEEP 0.0 Sodium Potassium Chloride Carbon Dioxide Anion Gap BUN Creatinine Creat Clearance w eGFR Random Glucose Lactic Acid Calcium Total Bilirubin AST ALT Alkaline Phosphatase Creatine Kinase CK-MB (CK-2) Troponin I Total Protein Albumin TSH Urine Color Urine Appearance Urine pH Ur Specific [place] Urine Protein Urine Glucose (UA) Urine Ketones Urine Blood Urine Nitrite Urine Bilirubin Urine Urobilinogen Ur Leukocyte Esterase Urine WBC (Auto) Urine RBC (Auto) Urine Bacteria Urine Mucus Stool Occult Blood Anti-A Titer Blood Type Antibody Screen Active Medications Generic Name Dose Route Start Last Admin Trade Name Freq PRN Reason Stop Dose Admin Albuterol/Ipratropium 1 amp 01/15/18 00:50 01/15/18 09:00 Duoneb - NEB 1 amp Q4H PRN Administration SHORTNESS OF BREATH Baclofen 10 mg 01/15/18 14:00 01/15/18 14:16 Lioresal - GT 10 mg TID JULIO Administration Clobazam 15 mg 01/15/18 10:00 01/15/18 11:36 Onfi - PO 15 mg BID JULIO Administration Diazepam 5 mg 01/15/18 10:00 01/15/18 09:43 Valium - GT Not Given DAILY JLUIO Diazepam 10 mg 01/15/18 08:39 01/15/18 09:00 Diastat Rectal Gel - RC 10 mg DAILY PRN Administration seisure above 3mins, notify Heparin Sodium (Porcine) 5,000 unit 01/15/18 06:00 01/15/18 14:16 Heparin - SQ 5,000 unit TID JULIO Administration Sodium Chloride 1,000 mls @ 42 mls/hr 01/15/18 02:45 01/15/18 04:45 Normal Saline - IV 42 mls/hr ASDIR JULIO Administration Piperacillin Sod/Tazobactam 100 mls @ 200 mls/hr 01/15/18 10:00 01/15/18 09: 48 Sod 4.5 gm/ Dextrose IVPB 200 mls/hr Q8H-IV JULIO Administration Protocol Phenylephrine HCl 20,000 mcg/ 250 mls @ 75 mls/hr 01/15/18 09:30 01/15/18 11: 40 Sodium Chloride IVPB 25 mcg/min TITR JULIO 18.75 mls/hr Titration Protocol 100 MCG/MIN Methylprednisolone Sodium Succinate 40 mg 01/15/18 10:00 01/15/18 09:48 Solu-Medrol - IVPUSH 40 mg DAILY JULIO Administration Topiramate 100 mg 01/15/18 10:00 01/15/18 08:59 Topamax - GT 100 mg BID JULIO Administration ASSESSMENT/PLAN: 27 yo male admitted to the ICU for respiratory distress following a siezure and possible aspiration. Neuro -Severe MR, nonverbal, wheelchair bound -Seizure disorder with multiple seizures today 1) Restarted pt on home meds (Diastat 10 mg RC Daily prn, Clobazem 15 mg PO BID, Topiramate 100mg GTBID, Diazepam 5 mg GT Daily) 2) Given Ativan prior to ICU transfer, still having intermittent seizures, so home meds given along with Keppra 1000mg IV Once 3) Neurology consult appreciated for seizure control recommendations Cardio -No acute cardiac problems as per clinical assessment and chart review Respiratory -Sepsis secondary to probable aspiration pneumonia as pt has chronic history of aspiration -Transferred to ICU for SOB and decreased saturation which is currently resolved -CXR reviewed Elevated R hemidiaphragm and LLL consolidation concerning for infectious process -Currently saturating well on High Flow O2, will repeat ABG this afternoon. -Hx of asthma with acute expiratory wheezes Duonebs Q4 PRN GI -G-tube securely in place ID -ID consulted and recommends Zosyn for gram- coverage until return of cultures -RSV swab returned positive placed on droplet precautions will await ID recommendations for future antibiotic coverage -CXR as mentioned above, will repeat in AM Hypothermia -92.3 on admission -Currently resolved at 98 -Will continue to monitor with rectal temperature recordings FEN -Fluids: NaCL @ 42 cc/hr, will bolus as needed for drop in BP due to Diazepam for seizures -Electrolytes: No electrolyte abnormalities, will monitor BMP in AM -Nutrition: Currently NPO VTE prophylaxis -Heparin 5000 units SQTID Dispo: We will continue to follow the patient. Thank you for this consultative opportunity. Case discussed with ICU attending Problem List - Problems (1) Hypothermia Code(s): T68.XXXA - HYPOTHERMIA, INITIAL ENCOUNTER Qualifiers: Encounter type: initial encounter Qualified Code(s): T68.XXXA - Hypothermia , initial encounter (2) PNA (pneumonia) Code(s): J18.9 - PNEUMONIA, UNSPECIFIED ORGANISM Qualifiers: Pneumonia type: aspiration pneumonia Aspiration pneumonia type: unspecified Laterality: unspecified laterality Lung location: unspecified part of lung Qualified Code(s): J69.0 - Pneumonitis due to inhalation of food and vomit (3) Seizure disorder Code(s): G40.909 - EPILEPSY, UNSP, NOT INTRACTABLE, WITHOUT STATUS EPILEPTICUS (4) Sepsis Code(s): A41.9 - SEPSIS, UNSPECIFIED ORGANISM Qualifiers: Sepsis type: sepsis due to unspecified organism Qualified Code(s): A41.9 - Sepsis, unspecified organism (5) Asthma Code(s): J45.909 - UNSPECIFIED ASTHMA, UNCOMPLICATED (6) Chronic pulmonary aspiration Code(s): T17.908A - UNSP FB IN RESP TRACT, PART UNSP CAUSING OTH INJURY, INIT (7) DVT prophylaxis Code(s): CDM9190 - (8) Profound mental retardation Code(s): F73 - PROFOUND INTELLECTUAL DISABILITIES Visit type - Emergency Visit Emergency Visit: Yes ED Registration Date: 01/14/18 Care time: The patient presented to the Emergency Department on the above date and was hospitalized for further evaluation of their emergent condition. - New Patient This patient is new to me today: Yes Date on this admission: 01/15/18 - Critical Care Critical Care patient: Yes Total Critical Care Time (in minutes): 45 Critical Care Statement: The care of this patient involved high complexity decision making to prevent further life threatening deterioration of the patient 's condition and/or to evaluate & treat vital organ system(s) failure or risk of failure.
[2018-01-15] MEDS ORDERED: diazePAM 5 MG TABLET PO ONE (18:30)
[2018-01-15 18:39] LABS: ARTERIAL BLD GAS O2 SATURATION 93.9 % (90-98.9); ARTERIAL BLOOD GAS BASE EXCESS -7.3 meq/l (-2-2); ARTERIAL BLOOD GAS PCO2 43.7 mmHg (35-45); ARTERIAL BLOOD GAS PO2 69.2 mmHg (80-100); ARTERIAL BLOOD GAS pH 7.26 (7.35-7.45)
[2018-01-15 19:34] LABS: ALLENS TEST POSITIVE
--- NOTE | 2018-01-15 21:19 | PN ---
Teaching Attending Note Name of Resident: Shanice Trejo ATTENDING PHYSICIAN STATEMENT I saw and evaluated the patient. I reviewed the resident's note and discussed the case with the resident. I agree with the resident's findings and plan as documented. SUBJECTIVE: Rapid response was called , Patient was actively seizing and became apneic, tachypneic and hypoxic. Patient was given iV Lorazepam and was transferred to ICU for airway protection. Patient was found to be hypotensive with BP of 68/ 37 and was started Phenylephrine IV in ICU. and place on NR. OBJECTIVE: Vital Signs Temperature 98.1 F 01/15/18 16:00 Pulse Rate 78 01/15/18 20:00 Respiratory Rate 12 01/15/18 20:00 Blood Pressure 98/54 01/15/18 20:00 O2 Sat by Pulse Oximetry (%) 98 01/15/18 20:00 CBCD WBC 18.1 K/mm3 (4.0-10.0) H 01/14/18 15:47 RBC 3.71 M/mm3 (4.00-5.60) L 01/14/18 15:47 Hgb 11.0 GM/dL (11.7-16.9) L 01/14/18 15:47 Hct 35.0 % (35.4-49) L D 01/14/18 15:47 MCV 94.3 fl (80-96) 01/14/18 15:47 MCHC 31.5 g/dl (32.0-35.9) L 01/14/18 15:47 RDW 16.1 % (11.9-15.9) H 01/14/18 15:47 Plt Count 596 K/MM3 (134-434) H D 01/14/18 15:47 MPV 7.0 fl (7.5-11.1) L D 01/14/18 15:47 CMP Sodium 137 mmol/L (136-145) 01/14/18 15:47 Potassium 4.3 mmol/L (3.5-5.1) 01/14/18 15:47 Chloride 104 mmol/L (98-107) 01/14/18 15:47 Carbon Dioxide 21 mmol/L (21-32) 01/14/18 15:47 Anion Gap 12 (8-16) 01/14/18 15:47 BUN 22 mg/dL (7-18) H 01/14/18 15:47 Creatinine 1.3 mg/dL (0.7-1.3) 01/14/18 15:47 Creat Clearance w eGFR > 60 (>60) 01/14/18 15:47 Random Glucose 139 mg/dL (74-106) H D 01/14/18 15:47 Calcium 9.3 mg/dL (8.5-10.1) 01/14/18 15:47 Total Bilirubin 0.2 mg/dL (0.2-1.0) 01/14/18 15:47 AST 35 U/L (15-37) D 01/14/18 15:47 ALT 27 U/L (12-78) D 01/14/18 15:47 Alkaline Phosphatase 166 U/L (45-117) H 01/14/18 15:47 Total Protein 8.9 g/dl (6.4-8.2) H 01/14/18 15:47 Albumin 2.7 g/dl (3.4-5.0) L 01/14/18 15:47 CARDIAC ENZYMES Creatine Kinase 60 IU/L (39-308) 01/14/18 15:47 Troponin I < 0.02 ng/ml (0.00-0.05) 01/14/18 15:47 Current Medications Generic Name Dose Route Start Last Admin Trade Name Freq PRN Reason Stop Dose Admin Albuterol/Ipratropium 1 amp 01/15/18 00:50 01/15/18 09:00 Duoneb - NEB 1 amp Q4H PRN Administration SHORTNESS OF BREATH Baclofen 10 mg 01/15/18 14:00 01/15/18 14:16 Lioresal - GT 10 mg TID JULIO Administration Clobazam 15 mg 01/15/18 10:00 01/15/18 21:04 Onfi - PO 15 mg BID JULIO Administration Diazepam 5 mg 01/15/18 10:00 01/15/18 09:43 Valium - GT Not Given DAILY JULIO Diazepam 10 mg 01/15/18 08:39 01/15/18 09:00 Diastat Rectal Gel - RC 10 mg DAILY PRN Administration seisure above 3mins, fina MAHAN Heparin Sodium (Porcine) 5,000 unit 01/15/18 06:00 01/15/18 21:04 Heparin - SQ 5,000 unit TID JULIO Administration Sodium Chloride 1,000 mls @ 42 mls/hr 01/15/18 02:45 01/15/18 04:45 Normal Saline - IV 42 mls/hr ASDIR JULIO Administration Piperacillin Sod/Tazobactam 100 mls @ 200 mls/hr 01/15/18 10:00 01/15/18 17: 26 Sod 4.5 gm/ Dextrose IVPB 200 mls/hr Q8H-IV JULIO Administration Protocol Phenylephrine HCl 20,000 mcg/ 250 mls @ 75 mls/hr 01/15/18 09:30 01/15/18 11: 40 Sodium Chloride IVPB 25 mcg/min TITR JULIO 18.75 mls/hr Titration Protocol 100 MCG/MIN Methylprednisolone Sodium Succinate 40 mg 01/15/18 10:00 01/15/18 09:48 Solu-Medrol - IVPUSH 40 mg DAILY JULIO Administration Topiramate 100 mg 01/15/18 10:00 01/15/18 21:04 Topamax - GT 100 mg BID JULIO Administration Home Medications Medication Instructions Recorded Albuterol 0.083% Nebulizer Rani 1 amp NEB QID 01/14/18 [Ventolin 0.083% Nebulizer Soln -] Baclofen 10 mg GT TID 01/14/18 Bisacodyl Suppository [Dulcolax 10 mg RC DAILY PRN 01/14/18 Suppository -] Calcium Carbonate/Vitamin D3 1 each PO DAILY 01/14/18 [Oyster Shell Calcium-Vit D Tab] Clobazam [Onfi -] 15 mg GT BID 01/14/18 Diazepam 5 mg GT DAILY 01/14/18 Diazepam Rectal Gel [Diastat 10 mg RC PRN 01/14/18 *Rectal Gel*] Doxycycline Calcium [Vibramycin] 10 ml GT BID 01/14/18 Ferrous Sulfate 220 mg PEG BID 01/14/18 Lactulose 10 gm PEG BID 01/14/18 Loratadine 10 mg GT DAILY 01/14/18 Mometasone Furoate 17 gm NS BID 01/14/18 Polyethylene Glycol 3350 [Glycolax] 17 gm GT DAILY 01/14/18 Sennosides [Senna] 2 tab GT HS 01/14/18 Simethicone 40 mg PO BID 01/14/18 Sodium Chloride [Saline Mist] 2 spray NS QID 01/14/18 Sulfamethoxazole/Trimethoprim 20 ml GT HS 01/14/18 [Sulfatrim 800-160 mg/20 ml Ramona] Topiramate 100 mg GT BID 01/14/18 PE: CHEst: tachypneic, tachycardic, with labored breathing on 100% NR rest of PE per the resident's note ASSESSMENT AND PLAN: Patient is a 27 y/o nonverbal male from [facility] admitted for sepsis and was found to be seizing , transferred to ICU. #Sepsis with septic shock due to HCAP from [facility] vs aspiration PNA, stat CXR,ABG and labs ordered. #Acute Hypoxic Respiratory Failure on 100% NR for now, monitor for possible intubation if patient does not improve. #Septic shock with BP of 89/51 started Phenylephrine HCl drip to keep MAP above 75 #Hypothermia: continue Jesus Alberto huggaer i,monitor temp. # active Seizure activity , given Ativan and transferred the patient to ICU continue home meds. Topiramate 100 mg GT BID, Valium 5 mg GT QD #Asthma exacerbation; On Solumedrol 40 mg IV push and Duoneb 1 amp neb Q4 PRN continue #Anemia f/iu iron studies #Paraplegia: reposition to avoid decubiti ulcers #Prophylaxis: Heparin 5000 units subq TID critical care time of 35min
[2018-01-16] MEDS: PIPERACILLIN/TAZOB 4.5 GM 4.5 GM in DEXTROSE 5%-WATER 100 ML IVPB SCH ×3 (02:00→17:02)
[2018-01-16] MEDS ORDERED: PIPERACILLIN/TAZOBACTAM 4.5 GM VIAL IVPB ONE ×3 (03:41→17:00)
[2018-01-16] MEDS ORDERED: DEXTROSE 5%-WATER 100 ML IVPB ONE ×3 (03:42→17:00)
[2018-01-16] MEDS: SODIUM CHLORIDE 1,000 ML IV SCH ×2 (03:44→09:39)
[2018-01-16] MEDS: BACLOFEN 10 MG TABLET (FP) GT SCH ×3 (05:56→21:32)
[2018-01-16] MEDS: HEPARIN NA (PORCINE) 5,000 UNITS/ML 1ML VIAL SQ SCH ×3 (05:56→21:32)
[2018-01-16 06:22] LABS: ANION GAP 9 (8-16); BLOOD UREA NITROGEN 18 mg/dL (7-18); CALCIUM 8.4 mg/dL (8.5-10.1); CHLORIDE 117 mmol/L (98-107); CO2 19 mmol/L (21-32); GLUCOSE,RANDOM 76 mg/dL (74-106); MAGNESIUM 2.2 mg/dL (1.8-2.4); POTASSIUM 3.6 mmol/L (3.5-5.1); SGPT/ALT 21 U/L (12-78); SODIUM 145 mmol/L (136-145)
[2018-01-16 06:27] LABS: ALK PHOS 110 U/L (45-117); BILIRUBIN,TOTAL 0.3 mg/dL (0.2-1.0); CREATININE 1.2 mg/dL (0.7-1.3); PHOSPHOROUS 3.6 mg/dL (2.5-4.9); SGOT/AST 19 U/L (15-37); TOT PROT 6.7 g/dl (6.4-8.2)
[2018-01-16 06:36] LABS: BASO % 0.2 % (0-2.0); EOS % 0.3 % (0-4.5); HEMATOCRIT 27.5 % (35.4-49); HEMOGLOBIN 8.5 GM/dL (11.7-16.9); LYMPH % 16.1 % (8-40); MCH 29.8 pg (25.7-33.7); MCHC 30.9 g/dl (32.0-35.9); MEAN CELL VOLUME 96.2 fl (80-96); MONO % 4.8 % (3.8-10.2); NEUT % 78.6 % (42.8-82.8); PLATELET COUNT 517 K/MM3 (134-434); RBC 2.86 M/mm3 (4.00-5.60); RDW 16.4 % (11.9-15.9)
--- NOTE | 2018-01-16 07:35 | PN ---
Progress Note, Physician Chief Complaint: ID Respiratory secretions noted RSV positive screen Zosyn day 2 Rx History of Present Illness: ID Tachypneic 50%FIO2 Respiratory secretions noted Zosyn RSV pos - Current Medication List Current Medications: Active Medications Albuterol/Ipratropium (Duoneb -) 1 amp NEB Q4H PRN PRN Reason: SHORTNESS OF BREATH Last Admin: 01/15/18 22:52 Dose: 1 amp Baclofen (Lioresal -) 10 mg GT TID [facility] Last Admin: 01/16/18 05:56 Dose: 10 mg Clobazam (Onfi -) 15 mg PO BID [facility] Last Admin: 01/15/18 21:04 Dose: 15 mg Diazepam (Valium -) 5 mg GT DAILY [facility] Last Admin: 01/15/18 09:43 Dose: Not Given Diazepam (Diastat Rectal Gel -) 10 mg RC DAILY PRN PRN Reason: seisure above 3mins, notify Last Admin: 01/15/18 09:00 Dose: 10 mg Heparin Sodium (Porcine) (Heparin -) 5,000 unit SQ TID JULIO Last Admin: 01/16/18 05:56 Dose: 5,000 unit Sodium Chloride (Normal Saline -) 1,000 mls @ 42 mls/hr IV ASDIR JULIO Last Admin: 01/16/18 03:44 Dose: Not Given Piperacillin Sod/Tazobactam (Sod 4.5 gm/ Dextrose) 100 mls @ 200 mls/hr IVPB Q8H-IV JULIO; Protocol Last Admin: 01/16/18 02:00 Dose: 200 mls/hr Phenylephrine HCl 20,000 mcg/ (Sodium Chloride) 250 mls @ 75 mls/hr IVPB TITR JULIO; Protocol Last Titration: 01/15/18 11:40 Dose: 25 mcg/min, 18.75 mls/hr Methylprednisolone Sodium Succinate (Solu-Medrol -) 40 mg IVPUSH DAILY [facility] Last Admin: 01/15/18 09:48 Dose: 40 mg Topiramate (Topamax -) 100 mg GT BID [facility] Last Admin: 01/15/18 21:04 Dose: 100 mg - Objective Vital Signs: Vital Signs Temperature 98.1 F 01/16/18 06:00 Pulse Rate 84 01/16/18 07:00 Respiratory Rate 16 01/16/18 07:00 Blood Pressure 112/74 01/16/18 07:00 O2 Sat by Pulse Oximetry (%) 98 01/15/18 20:00 Labs: CBC, BMP 01/16/18 05:30 01/16/18 05:30 INR, PTT INR Cancelled 01/14/18 15:47 Problem List - Problems (1) Hypothermia Code(s): T68.XXXA - HYPOTHERMIA, INITIAL ENCOUNTER Qualifiers: Encounter type: initial encounter Qualified Code(s): T68.XXXA - Hypothermia , initial encounter (2) PNA (pneumonia) Code(s): J18.9 - PNEUMONIA, UNSPECIFIED ORGANISM Qualifiers: Pneumonia type: aspiration pneumonia Aspiration pneumonia type: unspecified Laterality: unspecified laterality Lung location: unspecified part of lung Qualified Code(s): J69.0 - Pneumonitis due to inhalation of food and vomit (3) Seizure disorder Code(s): G40.909 - EPILEPSY, UNSP, NOT INTRACTABLE, WITHOUT STATUS EPILEPTICUS (4) UTI (urinary tract infection) Code(s): N39.0 - URINARY TRACT INFECTION, SITE NOT SPECIFIED Qualifiers: Urinary tract infection type: site unspecified Hematuria presence: without hematuria Qualified Code(s): N39.0 - Urinary tract infection, site not specified Assessment/Plan Microbiology 01/15/18 08:48 Urine For Antigen Detection Legionella Antigen - Final 01/15/18 08:48 Urine For Antigen Detection Streptococcus pneumoniae Antigen (M - Final Laboratory Tests 01/14/18 01/14/18 01/15/18 15:47 16:54 18:30 WBC 18.1 H Hgb Hct Plt Count Neutrophils % Lymphocytes % ABG pH 7.26 L ABG pCO2 at Pt Temp 43.7 ABG pO2 at Pt Temp 69.2 L D Oxygen Flow Rate 40% Ur Leukocyte Esterase 2+ H Urine WBC (Auto) 13 Urine RBC (Auto) 1 01/16/18 05:30 WBC 13.0 H Hgb 8.5 L Hct 27.5 L D Plt Count 517 H Neutrophils % 78.6 Lymphocytes % 16.1 D ABG pH ABG pCO2 at Pt Temp ABG pO2 at Pt Temp Oxygen Flow Rate Ur Leukocyte Esterase Urine WBC (Auto) Urine RBC (Auto) Assessment RSV antigen positive Seizure disorder Sepsis syndrome ? Aspiration compononent Respirator failure Plan Nares screen Sputum c/s Isolation for RSV Continue antibiotic Isidro MAHAN
--- NOTE | 2018-01-16 09:23 | PN ---
Physical Exam: SUBJECTIVE: Patient seen and examined at bedside. As per night nurse, pt has had a lot of secretions, but vitals stable overnight. Afebrile. No seizure activity overnight. Patient is seen to have periods of apneic episodes lasting 2 -3 seconds upon examination. OBJECTIVE: Vital Signs Period Temp Pulse Resp BP Sys/Saha Pulse Ox Last 24 Hr 97.8 F-98.5 F 69-788 11-22 68-132/38-94 93-98 GENERAL: Nonverbal, paraplegic. Awake. HEENT: NC/AT. On nasal cannula. NECK: no LAD. No JVD. LUNGS: Bilateral wheezes present in upper and lower lobes. No accessory muscle use. Currently on High flow oxygen. HEART: Regular rate and rhythm, S1, S2 without murmur, rub or gallop. ABDOMEN: Soft, nontender, nondistended, normoactive bowel sounds, no masses. EXTREMITIES: No peripheral edema noted. B/l lower extremities contracted. NEUROLOGICAL: Unable to perform. SKIN: Warm, dry, normal turgor, no rashes or lesions noted Laboratory Results - last 24 hr 01/15/18 01/15/18 01/15/18 08:36 08:36 08:48 WBC RBC Hgb Hct MCV MCH MCHC RDW Plt Count MPV Absolute Neuts (auto) Neutrophils % Lymphocytes % Monocytes % Eosinophils % Basophils % Nucleated RBC % Puncture Site ABG pH ABG pCO2 at Pt Temp ABG pO2 at Pt Temp ABG HCO3 ABG O2 Sat (Measured) ABG O2 Content ABG Base Excess Eliezer Test O2 Delivery Device Oxygen Flow Rate Mechanical Rate PEEP Sodium Potassium Chloride Carbon Dioxide Anion Gap BUN Creatinine Creat Clearance w eGFR Random Glucose Lactic Acid 1.8 Calcium Phosphorus Magnesium Ferritin Total Bilirubin AST ALT Alkaline Phosphatase Total Protein Albumin TSH 2.55 D Stool Occult Blood Negative 01/15/18 01/15/18 01/16/18 13:25 18:30 05:30 WBC RBC Hgb Hct MCV MCH MCHC RDW Plt Count MPV Absolute Neuts (auto) Neutrophils % Lymphocytes % Monocytes % Eosinophils % Basophils % Nucleated RBC % Puncture Site Right radial Right radial ABG pH 7.19 L* 7.26 L ABG pCO2 at Pt Temp 52.5 H 43.7 ABG pO2 at Pt Temp 152.0 H* 69.2 L D ABG HCO3 19.4 L 18.9 L ABG O2 Sat (Measured) 98.9 93.9 ABG O2 Content 12.4 L 12.6 L ABG Base Excess -8.1 L -7.3 L Eliezer Test Positive Positive O2 Delivery Device Nonrebreather Nasal Oxygen Flow Rate 100% 40% Mechanical Rate No PEEP 0.0 Sodium 145 Potassium 3.6 Chloride 117 H D Carbon Dioxide 19 L Anion Gap 9 BUN 18 Creatinine 1.2 Creat Clearance w eGFR > 60 Random Glucose 76 D Lactic Acid Calcium 8.4 L Phosphorus 3.6 Magnesium 2.2 Ferritin 840.2 H Total Bilirubin 0.3 AST 19 D ALT 21 D Alkaline Phosphatase 110 D Total Protein 6.7 D Albumin 2.0 L TSH Stool Occult Blood 01/16/18 05:30 WBC 13.0 H RBC 2.86 L Hgb 8.5 L Hct 27.5 L D MCV 96.2 H MCH 29.8 MCHC 30.9 L RDW 16.4 H Plt Count 517 H MPV 7.0 L Absolute Neuts (auto) 10.2 Neutrophils % 78.6 Lymphocytes % 16.1 D Monocytes % 4.8 Eosinophils % 0.3 Basophils % 0.2 Nucleated RBC % 0 Puncture Site ABG pH ABG pCO2 at Pt Temp ABG pO2 at Pt Temp ABG HCO3 ABG O2 Sat (Measured) ABG O2 Content ABG Base Excess Eliezer Test O2 Delivery Device Oxygen Flow Rate Mechanical Rate PEEP Sodium Potassium Chloride Carbon Dioxide Anion Gap BUN Creatinine Creat Clearance w eGFR Random Glucose Lactic Acid Calcium Phosphorus Magnesium Ferritin Total Bilirubin AST ALT Alkaline Phosphatase Total Protein Albumin TSH Stool Occult Blood Active Medications Generic Name Dose Route Start Last Admin Trade Name Melvinq PRN Reason Stop Dose Admin Albuterol/Ipratropium 1 amp 01/15/18 00:50 01/15/18 22:52 Duoneb - NEB 1 amp Q4H PRN Administration SHORTNESS OF BREATH Baclofen 10 mg 01/15/18 14:00 01/16/18 05:56 Lioresal - GT 10 mg TID JULIO Administration Clobazam 15 mg 01/15/18 10:00 01/15/18 21:04 Onfi - PO 15 mg BID JULIO Administration Diazepam 5 mg 01/15/18 10:00 01/15/18 09:43 Valium - GT Not Given DAILY JULIO Diazepam 10 mg 01/15/18 08:39 01/15/18 09:00 Diastat Rectal Gel - RC 10 mg DAILY PRN Administration seisure above 3mins, notify Heparin Sodium (Porcine) 5,000 unit 01/15/18 06:00 01/16/18 05:56 Heparin - SQ 5,000 unit TID JULIO Administration Sodium Chloride 1,000 mls @ 42 mls/hr 01/15/18 02:45 01/16/18 03:44 Normal Saline - IV Not Given ASDIR JULIO Piperacillin Sod/Tazobactam 100 mls @ 200 mls/hr 01/15/18 10:00 01/16/18 02: 00 Sod 4.5 gm/ Dextrose IVPB 200 mls/hr Q8H-IV JULIO Administration Protocol Phenylephrine HCl 20,000 mcg/ 250 mls @ 75 mls/hr 01/15/18 09:30 01/15/18 11: 40 Sodium Chloride IVPB 25 mcg/min TITR JULIO 18.75 mls/hr Titration Protocol 100 MCG/MIN Methylprednisolone Sodium Succinate 40 mg 01/15/18 10:00 01/15/18 09:48 Solu-Medrol - IVPUSH 40 mg DAILY JULIO Administration Topiramate 100 mg 01/15/18 10:00 01/15/18 21:04 Topamax - GT 100 mg BID JULIO Administration ASSESSMENT/PLAN: 27 y/o nonverbal male at baseline from [facility] admitted for sepsis 2/2 possible aspiration PNA vs UTI #Sepsis secondary to aspiration/health care acquired pneumonia vs UTI -SIRS criteria: temperature 96.1F, HR 103, RR 26, WBC 18.1 -CXR (01/16/18): Airspace opacities noted in L lung, R upper lobe concerning for infectious process. -f/u chest CT -cont Zosyn 4.5 g-Dextrose 100 cc @ 200 cc/hr IVPB -As per ID, Dr. Mallory to cont Zosyn; hx of aspiration #Acute Hypoxic Respiratory Failure - currently stable at 98% high flow nasal cannula - CXR (01/15/18): Large pleural effusion, increased lung markings noted in L perihilar region, L lower lobe concerning for infectious process - f/u pulm consult with Dr. Murillo #Hypotension; 106/70 - d/c Phenylephrine HCl 20,000 mcg as BP is stable. - monitor BP closely #Seizure d/o; no seizure activity overnight - cont Topiramate 100 mg GT BID - cont Valium 5 mg GT QD #Asthma exacerbation -cont Solumedrol 40 mg IV push and Duoneb 1 amp neb Q4 PRN #Anemia -Hb 11, Hct 35 -f/u Iron studies #Hypoalbuminemia -Albumin 2.7 -Likely secondary to malnutrition -Studio Engineer consult requested #Paraplegia: -reposition when needed for comfort #FEN IV NS 42ml/hr No electrolyte repletion NPO for now d/t aspiration risk Visit type - Emergency Visit Emergency Visit: No - New Patient This patient is new to me today: No - Critical Care Critical Care patient: Yes Total Critical Care Time (in minutes): 35 Critical Care Statement: The care of this patient involved high complexity decision making to prevent further life threatening deterioration of the patient 's condition and/or to evaluate & treat vital organ system(s) failure or risk of failure.
[2018-01-16] MEDS: diazePAM 5 MG TABLET GT SCH (09:30)
[2018-01-16] MEDS: TOPIRAMATE 100 MG TABLET GT SCH ×2 (09:30→23:20)
[2018-01-16] MEDS: cloBAZam 10 MG TABLET PO SCH ×2 (09:30→21:32)
[2018-01-16] MEDS: methylPREDNISolone NA SUCC 40 MG/1 ML VIAL IVPUSH SCH (09:30)
[2018-01-16] MEDS: PHENYLEPHRINE HCL 20,000 MCG in SODIUM CHLORIDE 248 ML IVPB SCH (09:39)
--- NOTE | 2018-01-16 09:41 | CONSULT ---
Consult - text type - Consultation Consultation Note: Neurology HISTORY OF PRESENT ILLNESS: 27 y/o wheelchair quinn, nonverbal male from [facility] presents with difficulty breathing, rhonchi, and wheezing that began earlier afternoon of admssion. As per health aid at bedside, patient was given multiple nebulizer treatments which were minimally palliative at [facility]. Reported O2 saturation at [facility] was 94%. Patient was also hypothermic upon presentation at 92.3 degrees F. Admitted for sepsis management, ID following for UTI, PNA. Consulted for seizure like activity. He has h/o seizure and has been on TPM, Onfi, Valium as listed below. Had also been given loading dose of Keppra. Due to hypotension ( requiring Phenylephrine) his valium had been held in the morning. Thereafter partial seizure activity occured in evening and discussed with nurse to give valium dose as regularly scheduled. If persists, then keppra can be added. Overnight, without seizure activity and stabilized. Now off bp support but still in ICU. On Abx for infection which can precipitate events. PAST MEDICAL HISTORY: chronic aspiration, pneumonia, asthma, UTI, seizure, paraplegia, MR/DD, scoliosis Social History: Smoking: none Alcohol: none Drugs: none Family History: Allergies: NKDA No Known Drug Allergies Allergy (Verified 01/14/18 14:46) HOME MEDICATIONS: Home Medications Medication Instructions Recorded Albuterol 0.083% Nebulizer Rani 1 amp NEB QID 01/14/18 [Ventolin 0.083% Nebulizer Soln -] Baclofen 10 mg GT TID 01/14/18 Bisacodyl Suppository [Dulcolax 10 mg RC DAILY PRN 01/14/18 Suppository -] Calcium Carbonate/Vitamin D3 1 each PO DAILY 01/14/18 [Oyster Shell Calcium-Vit D Tab] Clobazam [Onfi -] 15 mg GT BID 01/14/18 Diazepam 5 mg GT DAILY 01/14/18 Diazepam Rectal Gel [Diastat 10 mg RC PRN 01/14/18 *Rectal Gel*] Doxycycline Calcium [Vibramycin] 10 ml GT BID 01/14/18 Ferrous Sulfate 220 mg PEG BID 01/14/18 Lactulose 10 gm PEG BID 01/14/18 Loratadine 10 mg GT DAILY 01/14/18 Mometasone Furoate 17 gm NS BID 01/14/18 Polyethylene Glycol 3350 [Glycolax] 17 gm GT DAILY 01/14/18 Sennosides [Senna] 2 tab GT HS 01/14/18 Simethicone 40 mg PO BID 01/14/18 Sodium Chloride [Saline Mist] 2 spray NS QID 01/14/18 Sulfamethoxazole/Trimethoprim 20 ml GT HS 01/14/18 [Sulfatrim 800-160 mg/20 ml Ramona] Topiramate 100 mg GT BID 01/14/18 REVIEW OF SYSTEMS Unable to obtain as patient is nonverbal, noncommunicative at baseline. PHYSICAL EXAMINATION Vital Signs Period Temp Pulse Resp BP Sys/Saha Pulse Ox Last 24 Hr 97.8 F-98.5 F 69-788 11-22 87-132/42-94 93-98 GENERAL: Nonverbal, no acute distress. HEAD: normocephalic, atraumatic. EYES: Pupils equal, round and reactive to light, extraocular movements intact, sclera anicteric LUNGS: Course breath sounds and rhonchi, inspiratory and expiratory wheezes and crackles auscultated B/L HEART: Regular rate and rhythm, normal S1 and S2. No murmurs. ABDOMEN: Soft, nontender, not distended, normoactive bowel sounds, no guarding, no rebound. EXTREMITIES: 2+ radial pulses B/L. Unable to appreciate DP pulses. No peripheral edema. Neuro: Nonverbal, CN appear intact, not following commands but moves ext grossly , no abnormal movements noted CBCD WBC 13.0 K/mm3 (4.0-10.0) H 01/16/18 05:30 RBC 2.86 M/mm3 (4.00-5.60) L 01/16/18 05:30 Hgb 8.5 GM/dL (11.7-16.9) L 01/16/18 05:30 Hct 27.5 % (35.4-49) L D 01/16/18 05:30 MCV 96.2 fl (80-96) H 01/16/18 05:30 MCHC 30.9 g/dl (32.0-35.9) L 01/16/18 05:30 RDW 16.4 % (11.9-15.9) H 01/16/18 05:30 Plt Count 517 K/MM3 (134-434) H 01/16/18 05:30 MPV 7.0 fl (7.5-11.1) L 01/16/18 05:30 CMP Sodium 145 mmol/L (136-145) 01/16/18 05:30 Potassium 3.6 mmol/L (3.5-5.1) 01/16/18 05:30 Chloride 117 mmol/L (98-107) H D 01/16/18 05:30 Carbon Dioxide 19 mmol/L (21-32) L 01/16/18 05:30 Anion Gap 9 (8-16) 01/16/18 05:30 BUN 18 mg/dL (7-18) 01/16/18 05:30 Creatinine 1.2 mg/dL (0.7-1.3) 01/16/18 05:30 Creat Clearance w eGFR > 60 (>60) 01/16/18 05:30 Random Glucose 76 mg/dL (74-106) D 01/16/18 05:30 Calcium 8.4 mg/dL (8.5-10.1) L 01/16/18 05:30 Total Bilirubin 0.3 mg/dL (0.2-1.0) 01/16/18 05:30 AST 19 U/L (15-37) D 01/16/18 05:30 ALT 21 U/L (12-78) D 01/16/18 05:30 Alkaline Phosphatase 110 U/L (45-117) D 01/16/18 05:30 Total Protein 6.7 g/dl (6.4-8.2) D 01/16/18 05:30 Albumin 2.0 g/dl (3.4-5.0) L 01/16/18 05:30 CARDIAC ENZYMES Creatine Kinase 60 IU/L (39-308) 01/14/18 15:47 Troponin I < 0.02 ng/ml (0.00-0.05) 01/14/18 15:47 ASSESSMENT/PLAN: 27 y/o wheelchair quinn, nonverbal male from [facility] presents with difficulty breathing, rhonchi, and wheezing that began earlier afternoon of admssion. As per health aid at bedside, patient was given multiple nebulizer treatments which were minimally palliative at [facility]. Reported O2 saturation at [facility] was 94%. Patient was also hypothermic upon presentation at 92.3 degrees F. Admitted for sepsis management, ID following for UTI, PNA. Consulted for seizure like activity. He has h/o seizure and has been on TPM, Onfi, Valium as listed below. Had also been given loading dose of Keppra. Due to hypotension (requiring Phenylephrine) his valium had been held in the morning. Thereafter partial seizure activity occured in evening and discussed with nurse to give valium dose as regularly scheduled. Overnight, without seizure activity and stabilized. If persists, then keppra can be added. 500mg twice daily Now off bp support but still in ICU. Monitor electrolytes Maintain adequate hydration Continue mgmt for infection which can precipitate events Abx per ID Critical care time 45 mins
--- NOTE | 2018-01-16 12:27 | PN ---
Teaching Attending Note Name of Resident: Dario Pugh ATTENDING PHYSICIAN STATEMENT I saw and evaluated the patient. I reviewed the resident's note and discussed the case with the resident. I agree with the resident's findings and plan as documented. SUBJECTIVE: Patient seen and examined in the ICU. Appears more comfortable on HF NC O2 ( 50L / 50% FiO2). Pressors stopped this AM. CXR: Increase in bilateral airspace disease Intake & Output 01/13/18 01/14/18 01/15/18 01/16/18 23:59 23:59 23:59 23:59 Intake Total 1800 1999 904 Output Total 2540 500 Balance 1800 -541 404 Weight 121 lb 121 lb Last Vital Signs Temp Pulse Resp BP Pulse Ox 97.4 F L 85 19 91/63 97 01/16/18 10:00 01/16/18 12:00 01/16/18 12:00 01/16/18 12:00 01/16/18 11:15 Active Medications Albuterol/Ipratropium (Duoneb -) 1 amp NEB Q4H PRN PRN Reason: SHORTNESS OF BREATH Last Admin: 01/15/18 22:52 Dose: 1 amp Baclofen (Lioresal -) 10 mg GT TID [facility] Last Admin: 01/16/18 05:56 Dose: 10 mg Clobazam (Onfi -) 15 mg PO BID [facility] Last Admin: 01/16/18 09:30 Dose: 15 mg Diazepam (Valium -) 5 mg GT DAILY [facility] Last Admin: 01/16/18 09:30 Dose: 5 mg Diazepam (Diastat Rectal Gel -) 10 mg RC DAILY PRN PRN Reason: seisure above 3mins, notifcari MAHAN Last Admin: 01/15/18 09:00 Dose: 10 mg Heparin Sodium (Porcine) (Heparin -) 5,000 unit SQ TID [facility] Last Admin: 01/16/18 05:56 Dose: 5,000 unit Piperacillin Sod/Tazobactam (Sod 4.5 gm/ Dextrose) 100 mls @ 200 mls/hr IVPB Q8H-IV JULIO; Protocol Last Admin: 01/16/18 09:30 Dose: 200 mls/hr Phenylephrine HCl 20,000 mcg/ (Sodium Chloride) 250 mls @ 75 mls/hr IVPB TITR JULIO; Protocol Last Admin: 01/16/18 09:39 Dose: Not Given Methylprednisolone Sodium Succinate (Solu-Medrol -) 40 mg IVPUSH DAILY [facility] Last Admin: 01/16/18 09:30 Dose: 40 mg Topiramate (Topamax -) 100 mg GT BID [facility] Last Admin: 01/16/18 09:30 Dose: 100 mg HEENT: (-) Pallor, (-) Icterus Neck: Supple, nontender. No palpable adenopathy or thyromegaly. No JVD Chest: Scattered coarse rhonchi and wheezing Heart: Regular. No S3, rub or murmur Abdomen: Not distended, soft, nontender and no HSM. PEG in place. No rebound or guarding. Normoactive bowel sounds. Ext: Peripheral pulses intact. No leg edema. Limb contractures. Bates in place. Skin: Warm and dry. No petechiae, rash or ecchymosis. Neuro: Unable to follow commands. Paraplegia. Laboratory Results - last 24 hr 01/15/18 01/15/18 01/16/18 13:25 18:30 05:30 WBC RBC Hgb Hct MCV MCH MCHC RDW Plt Count MPV Absolute Neuts (auto) Neutrophils % Lymphocytes % Monocytes % Eosinophils % Basophils % Nucleated RBC % Retic Count Puncture Site Right radial Right radial ABG pH 7.19 L* 7.26 L ABG pCO2 at Pt Temp 52.5 H 43.7 ABG pO2 at Pt Temp 152.0 H* 69.2 L D ABG HCO3 19.4 L 18.9 L ABG O2 Sat (Measured) 98.9 93.9 ABG O2 Content 12.4 L 12.6 L ABG Base Excess -8.1 L -7.3 L Eliezer Test Positive Positive O2 Delivery Device Nonrebreather Nasal Oxygen Flow Rate 100% 40% Mechanical Rate No PEEP 0.0 Sodium 145 Potassium 3.6 Chloride 117 H D Carbon Dioxide 19 L Anion Gap 9 BUN 18 Creatinine 1.2 Creat Clearance w eGFR > 60 Random Glucose 76 D Calcium 8.4 L Phosphorus 3.6 Magnesium 2.2 Ferritin 840.2 H Total Bilirubin 0.3 AST 19 D ALT 21 D Alkaline Phosphatase 110 D Total Protein 6.7 D Albumin 2.0 L 01/16/18 01/16/18 05:30 05:30 WBC 13.0 H RBC 2.86 L Hgb 8.5 L Hct 27.5 L D MCV 96.2 H MCH 29.8 MCHC 30.9 L RDW 16.4 H Plt Count 517 H MPV 7.0 L Absolute Neuts (auto) 10.2 Neutrophils % 78.6 Lymphocytes % 16.1 D Monocytes % 4.8 Eosinophils % 0.3 Basophils % 0.2 Nucleated RBC % 0 Retic Count 1.85 H Puncture Site ABG pH ABG pCO2 at Pt Temp ABG pO2 at Pt Temp ABG HCO3 ABG O2 Sat (Measured) ABG O2 Content ABG Base Excess Eliezer Test O2 Delivery Device Oxygen Flow Rate Mechanical Rate PEEP Sodium Potassium Chloride Carbon Dioxide Anion Gap BUN Creatinine Creat Clearance w eGFR Random Glucose Calcium Phosphorus Magnesium Ferritin Total Bilirubin AST ALT Alkaline Phosphatase Total Protein Albumin ASSESSMENT AND PLAN: Sepsis due to HCAP versus Aspiration Pneumonitis Acute hypercapneic respiratory failure Hypothermia MR Paraplegia Asthma Anemia PLAN: Wean HF NC as tolerated ABX per ID Aspiration precautions O2 as needed Enteral feeds BD TX Steroids Monitor off pressors D/C IVF VTE prophylaxis Dr Brito Critical care time spent in reviewing chart, evaluating patient and formulating plan - 36 minutes.
[2018-01-16] MEDS ORDERED: PT OWN MED DRAWER 7, Y5N ONE (13:04)
[2018-01-16] MEDS ORDERED: diazePAM 5 MG TABLET GT SCH (13:43)
[2018-01-16] MEDS ORDERED: TOPIRAMATE 100 MG TABLET GT SCH (13:44)
--- NOTE | 2018-01-16 15:03 | PN ---
Physical Exam: SUBJECTIVE: Patient seen and examined in the ICU. Nonverbal and unable to follow commands. Sleeping comfortably in bed. OBJECTIVE: Vital Signs Period Temp Pulse Resp BP Sys/Saha Pulse Ox Last 24 Hr 97.4 F-98.5 F 69-788 11 82-132/42-74 93-98 GENERAL: Awake, nonverbal with severe mr, in no acute distress. HEAD: Microcephaly with no signs of trauma. EYES: Pupils equal, round and reactive to light, extraocular movements intact, sclera anicteric, conjunctiva clear. No lid lag. EARS, NOSE, THROAT: Ears normal, nares patent, oropharynx clear without exudates. Moist mucous membranes. NECK: supple without lymphadenopathy, JVD, or masses. LUNGS: On high flow O2. Breath sounds diffusely course with some expiratory wheezes. No accessory muscle use. HEART: Regular rate and rhythm, normal S1 and S2 without murmur, rub or gallop. ABDOMEN: G-tube in place, Soft, nontender, not distended, normoactive bowel sounds, no guarding, no rebound, no masses. MUSCULOSKELETAL: Contracted and lying on right side. No bony deformities or tenderness. No CVA tenderness. UPPER EXTREMITIES: 2+ pulses, warm, well-perfused. No cyanosis or edema LOWER EXTREMITIES: 2+ pulses, warm, well-perfused. No peripheral edema. NEUROLOGICAL: Nonverbal. wheelchair bound when out of bed. Unable to follow commands. PSYCHIATRIC: Cooperative. Poor eye contact. SKIN: Warm, dry, normal turgor, no rashes or lesions noted. Laboratory Results - last 24 hr 01/15/18 01/16/18 01/16/18 18:30 05:30 05:30 WBC RBC Hgb Hct MCV MCH MCHC RDW Plt Count MPV Absolute Neuts (auto) Neutrophils % Lymphocytes % Monocytes % Eosinophils % Basophils % Nucleated RBC % Retic Count 1.85 H Puncture Site Right radial ABG pH 7.26 L ABG pCO2 at Pt Temp 43.7 ABG pO2 at Pt Temp 69.2 L D ABG HCO3 18.9 L ABG O2 Sat (Measured) 93.9 ABG O2 Content 12.6 L ABG Base Excess -7.3 L Eliezer Test Positive O2 Delivery Device Nasal Oxygen Flow Rate 40% Sodium 145 Potassium 3.6 Chloride 117 H D Carbon Dioxide 19 L Anion Gap 9 BUN 18 Creatinine 1.2 Creat Clearance w eGFR > 60 Random Glucose 76 D Calcium 8.4 L Phosphorus 3.6 Magnesium 2.2 Ferritin 840.2 H Total Bilirubin 0.3 AST 19 D ALT 21 D Alkaline Phosphatase 110 D Total Protein 6.7 D Albumin 2.0 L 01/16/18 05:30 WBC 13.0 H RBC 2.86 L Hgb 8.5 L Hct 27.5 L D MCV 96.2 H MCH 29.8 MCHC 30.9 L RDW 16.4 H Plt Count 517 H MPV 7.0 L Absolute Neuts (auto) 10.2 Neutrophils % 78.6 Lymphocytes % 16.1 D Monocytes % 4.8 Eosinophils % 0.3 Basophils % 0.2 Nucleated RBC % 0 Retic Count Puncture Site ABG pH ABG pCO2 at Pt Temp ABG pO2 at Pt Temp ABG HCO3 ABG O2 Sat (Measured) ABG O2 Content ABG Base Excess Eliezer Test O2 Delivery Device Oxygen Flow Rate Sodium Potassium Chloride Carbon Dioxide Anion Gap BUN Creatinine Creat Clearance w eGFR Random Glucose Calcium Phosphorus Magnesium Ferritin Total Bilirubin AST ALT Alkaline Phosphatase Total Protein Albumin Active Medications Generic Name Dose Route Start Last Admin Trade Name Freq PRN Reason Stop Dose Admin Albuterol/Ipratropium 1 amp 01/15/18 00:50 01/15/18 22:52 Duoneb - NEB 1 amp Q4H PRN Administration SHORTNESS OF BREATH Baclofen 10 mg 01/15/18 14:00 01/16/18 13:26 Lioresal - GT 10 mg TID JULIO Administration Clobazam 15 mg 01/15/18 10:00 01/16/18 09:30 Onfi - PO 15 mg BID JULIO Administration Diazepam 10 mg 01/15/18 08:39 01/15/18 09:00 Diastat Rectal Gel - RC 10 mg DAILY PRN Administration seisure above 3mins, notify Diazepam 5 mg 01/17/18 07:00 Valium - GT DAILY@0700 JULIO Heparin Sodium (Porcine) 5,000 unit 01/15/18 06:00 01/16/18 13:26 Heparin - SQ 5,000 unit TID JULIO Administration Piperacillin Sod/Tazobactam 100 mls @ 200 mls/hr 01/15/18 10:00 01/16/18 09: 30 Sod 4.5 gm/ Dextrose IVPB 200 mls/hr Q8H-IV JULIO Administration Protocol Phenylephrine HCl 20,000 mcg/ 250 mls @ 75 mls/hr 01/15/18 09:30 01/16/18 09: 39 Sodium Chloride IVPB Not Given TITR JULIO Protocol 100 MCG/MIN Methylprednisolone Sodium Succinate 40 mg 01/15/18 10:00 01/16/18 09:30 Solu-Medrol - IVPUSH 40 mg DAILY JULIO Administration Topiramate 100 mg 01/16/18 23:55 Topamax - GT BID JULIO ASSESSMENT/PLAN: 27 yo male admitted to the ICU for respiratory distress following a siezure and possible aspiration. Neuro -Severe MR, nonverbal, wheelchair bound -Seizure disorder, no seizures overnight or today 1) Restarted pt on home meds (Diastat 10 mg RC Daily prn, Clobazem 15 mg PO BID, Topiramate 100mg GTBID, Diazepam 5 mg GT Daily) 2) Neurology consult appreciated for seizure control recommendations - recommend continuing home meds If pt seizes again, use ativan for acute seizure and then add keppra for future prevention Neurology did not recommend CT at this time Cardio -No acute cardiac problems as per clinical assessment and chart review Respiratory -Sepsis secondary to probable aspiration pneumonia as pt has chronic history of aspiration -Transferred to ICU for SOB and decreased saturation which is currently resolved -CXR reviewed Elevated R hemidiaphragm and LLL consolidation concerning for infectious process (01/15), little change today -Currently saturating well on High Flow O2 Attempting to wean off High Flow, pt can then be transferred to med/surg -Hx of asthma with acute expiratory wheezes Duonebs Q4 PRN GI -G-tube securely in place ID -ID consulted and recommends Zosyn 4.5gm IVQ8 for gram- coverage until return of cultures -RSV swab returned positive placed on droplet precautions -CXR as mentioned above, will repeat in AM Hypothermia -92.3 on admission -Currently resolved at 98 -Will continue to monitor with rectal temperature recordings FEN -Fluids: NaCL @ 42 cc/hr -Electrolytes: No electrolyte abnormalities, will monitor BMP in AM -Nutrition: Currently NPO VTE prophylaxis -Heparin 5000 units SQTID Disposition -Continue to monitor in the ICU Problem List - Problems (1) Hypothermia Code(s): T68.XXXA - HYPOTHERMIA, INITIAL ENCOUNTER Qualifiers: Encounter type: initial encounter Qualified Code(s): T68.XXXA - Hypothermia , initial encounter (2) PNA (pneumonia) Code(s): J18.9 - PNEUMONIA, UNSPECIFIED ORGANISM Qualifiers: Pneumonia type: aspiration pneumonia Aspiration pneumonia type: unspecified Laterality: unspecified laterality Lung location: unspecified part of lung Qualified Code(s): J69.0 - Pneumonitis due to inhalation of food and vomit (3) Seizure disorder Code(s): G40.909 - EPILEPSY, UNSP, NOT INTRACTABLE, WITHOUT STATUS EPILEPTICUS (4) Sepsis Code(s): A41.9 - SEPSIS, UNSPECIFIED ORGANISM Qualifiers: Sepsis type: sepsis due to unspecified organism Qualified Code(s): A41.9 - Sepsis, unspecified organism (5) Asthma Code(s): J45.909 - UNSPECIFIED ASTHMA, UNCOMPLICATED (6) Chronic pulmonary aspiration Code(s): T17.908A - UNSP FB IN RESP TRACT, PART UNSP CAUSING OTH INJURY, INIT (7) DVT prophylaxis Code(s): JJT1171 - (8) Profound mental retardation Code(s): F73 - PROFOUND INTELLECTUAL DISABILITIES Visit type - Emergency Visit Emergency Visit: Yes ED Registration Date: 01/14/18 Care time: The patient presented to the Emergency Department on the above date and was hospitalized for further evaluation of their emergent condition. - New Patient This patient is new to me today: No - Critical Care Critical Care patient: Yes Total Critical Care Time (in minutes): 38 Critical Care Statement: The care of this patient involved high complexity decision making to prevent further life threatening deterioration of the patient 's condition and/or to evaluate & treat vital organ system(s) failure or risk of failure.
--- NOTE | 2018-01-16 20:44 | PN ---
Teaching Attending Note Name of Resident: Shanice Trejo ATTENDING PHYSICIAN STATEMENT I saw and evaluated the patient. I reviewed the resident's note and discussed the case with the resident. I agree with the resident's findings and plan as documented. SUBJECTIVE: Patient is in ICU, comfortable now.tachycardic OBJECTIVE: Vital Signs Temperature 99.2 F 01/16/18 16:00 Pulse Rate 101 H 01/16/18 19:36 Respiratory Rate 17 01/16/18 19:36 Blood Pressure 100/62 01/16/18 19:36 O2 Sat by Pulse Oximetry (%) 96 01/16/18 19:36 CBCD WBC 13.0 K/mm3 (4.0-10.0) H 01/16/18 05:30 RBC 2.86 M/mm3 (4.00-5.60) L 01/16/18 05:30 Hgb 8.5 GM/dL (11.7-16.9) L 01/16/18 05:30 Hct 27.5 % (35.4-49) L D 01/16/18 05:30 MCV 96.2 fl (80-96) H 01/16/18 05:30 MCHC 30.9 g/dl (32.0-35.9) L 01/16/18 05:30 RDW 16.4 % (11.9-15.9) H 01/16/18 05:30 Plt Count 517 K/MM3 (134-434) H 01/16/18 05:30 MPV 7.0 fl (7.5-11.1) L 01/16/18 05:30 CMP Sodium 145 mmol/L (136-145) 01/16/18 05:30 Potassium 3.6 mmol/L (3.5-5.1) 01/16/18 05:30 Chloride 117 mmol/L (98-107) H D 01/16/18 05:30 Carbon Dioxide 19 mmol/L (21-32) L 01/16/18 05:30 Anion Gap 9 (8-16) 01/16/18 05:30 BUN 18 mg/dL (7-18) 01/16/18 05:30 Creatinine 1.2 mg/dL (0.7-1.3) 01/16/18 05:30 Creat Clearance w eGFR > 60 (>60) 01/16/18 05:30 Random Glucose 76 mg/dL (74-106) D 01/16/18 05:30 Calcium 8.4 mg/dL (8.5-10.1) L 01/16/18 05:30 Total Bilirubin 0.3 mg/dL (0.2-1.0) 01/16/18 05:30 AST 19 U/L (15-37) D 01/16/18 05:30 ALT 21 U/L (12-78) D 01/16/18 05:30 Alkaline Phosphatase 110 U/L (45-117) D 01/16/18 05:30 Total Protein 6.7 g/dl (6.4-8.2) D 01/16/18 05:30 Albumin 2.0 g/dl (3.4-5.0) L 01/16/18 05:30 CARDIAC ENZYMES Creatine Kinase 60 IU/L (39-308) 01/14/18 15:47 Troponin I < 0.02 ng/ml (0.00-0.05) 01/14/18 15:47 Current Medications Generic Name Dose Route Start Last Admin Trade Name Freq PRN Reason Stop Dose Admin Albuterol/Ipratropium 1 amp 01/15/18 00:50 01/15/18 22:52 Duoneb - NEB 1 amp Q4H PRN Administration SHORTNESS OF BREATH Baclofen 10 mg 01/15/18 14:00 01/16/18 13:26 Lioresal - GT 10 mg TID JULIO Administration Clobazam 15 mg 01/15/18 10:00 01/16/18 09:30 Onfi - PO 15 mg BID JULIO Administration Diazepam 10 mg 01/15/18 08:39 01/15/18 09:00 Diastat Rectal Gel - RC 10 mg DAILY PRN Administration seisure above 3mins, notify Diazepam 5 mg 01/17/18 10:00 Valium - GT DAILY@1000 JULIO Heparin Sodium (Porcine) 5,000 unit 01/15/18 06:00 01/16/18 13:26 Heparin - SQ 5,000 unit TID JULIO Administration Piperacillin Sod/Tazobactam 100 mls @ 200 mls/hr 01/15/18 10:00 01/16/18 17: 02 Sod 4.5 gm/ Dextrose IVPB 200 mls/hr Q8H-IV JULIO Administration Protocol Phenylephrine HCl 20,000 mcg/ 250 mls @ 75 mls/hr 01/15/18 09:30 01/16/18 09: 39 Sodium Chloride IVPB Not Given TITR JULIO Protocol 100 MCG/MIN Methylprednisolone Sodium Succinate 40 mg 01/15/18 10:00 01/16/18 09:30 Solu-Medrol - IVPUSH 40 mg DAILY JULIO Administration Topiramate 100 mg 01/16/18 23:55 Topamax - GT BID [facility] Home Medications Medication Instructions Recorded Albuterol 0.083% Nebulizer Rani 1 amp NEB QID 01/14/18 [Ventolin 0.083% Nebulizer Soln -] Baclofen 10 mg GT TID 01/14/18 Bisacodyl Suppository [Dulcolax 10 mg RC DAILY PRN 01/14/18 Suppository -] Calcium Carbonate/Vitamin D3 1 each PO DAILY 01/14/18 [Oyster Shell Calcium-Vit D Tab] Clobazam [Onfi -] 15 mg GT BID 01/14/18 Diazepam 5 mg GT DAILY 01/14/18 Diazepam Rectal Gel [Diastat 10 mg RC PRN 01/14/18 *Rectal Gel*] Doxycycline Calcium [Vibramycin] 10 ml GT BID 01/14/18 Ferrous Sulfate 220 mg PEG BID 01/14/18 Lactulose 10 gm PEG BID 01/14/18 Loratadine 10 mg GT DAILY 01/14/18 Mometasone Furoate 17 gm NS BID 01/14/18 Polyethylene Glycol 3350 [Glycolax] 17 gm GT DAILY 01/14/18 Sennosides [Senna] 2 tab GT HS 01/14/18 Simethicone 40 mg PO BID 01/14/18 Sodium Chloride [Saline Mist] 2 spray NS QID 01/14/18 Sulfamethoxazole/Trimethoprim 20 ml GT HS 01/14/18 [Sulfatrim 800-160 mg/20 ml Ramona] Topiramate 100 mg GT BID 01/14/18 Microbiology 01/14/18 15:52 Blood - Peripheral Venous Blood Culture - Preliminary NO GROWTH OBTAINED AFTER 48 HOURS, INCUBATION TO CONTINUE FOR 3 DAYS. 01/16/18 10:45 Sputum - Endotracheal Suction W/O Vent Gram Stain - Final 01/14/18 15:47 Blood - Peripheral Venous Blood Culture - Preliminary NO GROWTH OBTAINED AFTER 48 HOURS, INCUBATION TO CONTINUE FOR 3 DAYS. 01/14/18 16:54 Urine - Urine - Catheterized Urine Culture - Preliminary Non Lactose Fermenting Gnb 01/15/18 08:48 Urine For Antigen Detection Legionella Antigen - Final 01/15/18 08:48 Urine For Antigen Detection Streptococcus pneumoniae Antigen (M - Final 01/15/18 08:48 Nasopharyngeal Swab Influenza Types A,B Antigen - Final 01/15/18 08:48 Nasopharyngeal Swab - Final 01/15/18 08:48 Nasopharyngeal Swab Respiratory Syncytial Virus Ag - Final positive Urine Test Results Urine Color Yellow 01/14/18 16:54 Urine Appearance Slcloudy 01/14/18 16:54 Urine pH 6.0 (5.0-8.0) D 01/14/18 16:54 Ur Specific [place] 1.006 (1.001-1.035) 01/14/18 16:54 Urine Protein Negative (NEGATIVE) 01/14/18 16:54 Urine Glucose (UA) Negative (NEGATIVE) 01/14/18 16:54 Urine Ketones Negative (NEGATIVE) 01/14/18 16:54 Urine Blood Negative (NEGATIVE) 01/14/18 16:54 Urine Nitrite Negative (NEGATIVE) 01/14/18 16:54 Urine Bilirubin Negative (<2.0 mg/dL) 01/14/18 16:54 Ur Leukocyte Esterase 2+ (NEGATIVE) H 01/14/18 16:54 Urine Bacteria Few /hpf (NONE SEEN) 01/14/18 16:54 Urine Mucus Rare 01/14/18 16:54 Microbiology 01/14/18 15:52 Blood - Peripheral Venous Blood Culture - Preliminary NO GROWTH OBTAINED AFTER 48 HOURS, INCUBATION TO CONTINUE FOR 3 DAYS. 01/16/18 10:45 Sputum - Endotracheal Suction W/O Vent Gram Stain - Final 01/14/18 15:47 Blood - Peripheral Venous Blood Culture - Preliminary NO GROWTH OBTAINED AFTER 48 HOURS, INCUBATION TO CONTINUE FOR 3 DAYS. 01/14/18 16:54 Urine - Urine - Catheterized Urine Culture - Preliminary Non Lactose Fermenting Gnb 01/15/18 08:48 Urine For Antigen Detection Legionella Antigen - Final 01/15/18 08:48 Urine For Antigen Detection Streptococcus pneumoniae Antigen (M - Final 01/15/18 08:48 Nasopharyngeal Swab Influenza Types A,B Antigen - Final 01/15/18 08:48 Nasopharyngeal Swab - Final 01/15/18 08:48 Nasopharyngeal Swab Respiratory Syncytial Virus Ag - Final PE: CHEst: tachypneic, tachycardic, with labored breathing on 100% NR rest of PE per the resident's note ASSESSMENT AND PLAN: Patient is a 27 y/o nonverbal male from [facility] admitted for sepsis and was found to be seizing , transferred to ICU. #Sepsis with septic shock on Phenephephrine drip continue due to HCAP vs aspiration PNA from [facility]. ID on the case, started the patient on Zosyn #Acute Hypoxic Respiratory Failure due to RSV/Hcap vs aspiration PNA on NC now, continue to monitor for possible intubation # Acute UTI with NLF GNB on IV antibiotic as per ID will follow the organism #Hypothermia improved off Jesus Alberto huggaer now, continue to monitor temp./vitals q2h # s/p Seizure activity ,continue curernt therapy Topiramate 100 mg GT BID, Valium 5 mg GT QD #Asthma exacerbation; On Solumedrol 40 mg IV push and Duoneb 1 amp neb Q4 PRN continue #Anemia f/u iron studies #Paraplegia: reposition to avoid decubiti ulcers #Prophylaxis: Heparin 5000 units subq TID critical care time of 35min
[2018-01-17] MEDS ORDERED: PIPERACILLIN/TAZOBACTAM 4.5 GM VIAL IVPB ONE ×3 (01:04→15:22)
[2018-01-17] MEDS ORDERED: DEXTROSE 5%-WATER 100 ML IVPB ONE ×3 (01:04→15:22)
[2018-01-17] MEDS: PIPERACILLIN/TAZOB 4.5 GM 4.5 GM in DEXTROSE 5%-WATER 100 ML IVPB SCH ×3 (01:12→17:42)
[2018-01-17] MEDS: BACLOFEN 10 MG TABLET (FP) GT SCH ×3 (06:18→21:20)
[2018-01-17] MEDS: HEPARIN NA (PORCINE) 5,000 UNITS/ML 1ML VIAL SQ SCH ×3 (06:18→21:28)
[2018-01-17 06:27] LABS: BASO % 0.3 % (0-2.0); EOS % 0.5 % (0-4.5); HEMATOCRIT 29.5 % (35.4-49); HEMOGLOBIN 9.2 GM/dL (11.7-16.9); LYMPH % 25.9 % (8-40); MCH 29.9 pg (25.7-33.7); MCHC 31.1 g/dl (32.0-35.9); MEAN CELL VOLUME 96.3 fl (80-96); MEAN PLT VOLUME 6.9 fl (7.5-11.1); MONO % 6.1 % (3.8-10.2); NEUT % 67.2 % (42.8-82.8); PLATELET COUNT 515 K/MM3 (134-434); RBC 3.07 M/mm3 (4.00-5.60); RDW 16.4 % (11.9-15.9); WHITE BLOOD COUNT 12.8 K/mm3 (4.0-10.0)
[2018-01-17 06:54] LABS: CHLORIDE 119 mmol/L (98-107); SODIUM 149 mmol/L (136-145)
[2018-01-17] MEDS ORDERED: diazePAM 5 MG TABLET GT SCH ×2 (07:00→10:00)
[2018-01-17 07:02] LABS: ALBUMIN 2.1 g/dl (3.4-5.0); ALK PHOS 110 U/L (45-117); ANION GAP 9 (8-16); BILIRUBIN,TOTAL 0.3 mg/dL (0.2-1.0); BLOOD UREA NITROGEN 19 mg/dL (7-18); CALCIUM 8.7 mg/dL (8.5-10.1); CO2 21 mmol/L (21-32); CREATININE 1.3 mg/dL (0.7-1.3); MAGNESIUM 2.4 mg/dL (1.8-2.4); PHOSPHOROUS 3.7 mg/dL (2.5-4.9); SGOT/AST 21 U/L (15-37); SGPT/ALT 20 U/L (12-78); TOT PROT 6.9 g/dl (6.4-8.2)
[2018-01-17 07:29] LABS: GLUCOSE,RANDOM 46 mg/dL (74-106)
--- NOTE | 2018-01-17 07:30 | PN ---
Progress Note, Physician Chief Complaint: ID Miguel day 3 Rx - Current Medication List Current Medications: Active Medications Albuterol/Ipratropium (Duoneb -) 1 amp NEB Q4H PRN PRN Reason: SHORTNESS OF BREATH Last Admin: 01/15/18 22:52 Dose: 1 amp Baclofen (Lioresal -) 10 mg GT TID [facility] Last Admin: 01/17/18 06:18 Dose: 10 mg Clobazam (Onfi -) 15 mg PO BID [facility] Last Admin: 01/16/18 21:32 Dose: 15 mg Diazepam (Diastat Rectal Gel -) 10 mg RC DAILY PRN PRN Reason: seisure above 3mins, notify Last Admin: 01/15/18 09:00 Dose: 10 mg Diazepam (Valium -) 5 mg GT DAILY@1000 JULIO Heparin Sodium (Porcine) (Heparin -) 5,000 unit SQ TID [facility] Last Admin: 01/17/18 06:18 Dose: 5,000 unit Piperacillin Sod/Tazobactam (Sod 4.5 gm/ Dextrose) 100 mls @ 200 mls/hr IVPB Q8H-IV [facility]; Protocol Last Admin: 01/17/18 01:12 Dose: 200 mls/hr Phenylephrine HCl 20,000 mcg/ (Sodium Chloride) 250 mls @ 75 mls/hr IVPB TITR [facility]; Protocol Last Admin: 01/16/18 09:39 Dose: Not Given Methylprednisolone Sodium Succinate (Solu-Medrol -) 40 mg IVPUSH DAILY [facility] Last Admin: 01/16/18 09:30 Dose: 40 mg Topiramate (Topamax -) 100 mg GT BID [facility] Last Admin: 01/16/18 23:20 Dose: 100 mg - Objective Vital Signs: Vital Signs Temperature 98.2 F 01/17/18 06:00 Pulse Rate 93 H 01/17/18 06:00 Respiratory Rate 21 01/17/18 06:00 Blood Pressure 101/62 01/17/18 06:00 O2 Sat by Pulse Oximetry (%) 95 01/17/18 05:00 Constitutional: Yes: Mild Distress Cardiovascular: Yes: S1, S2 Respiratory: Yes: WNL, Regular, CTA Bilaterally. No: Rhonchi Gastrointestinal: Yes: Soft. No: Tenderness, Tenderness, Rebound Edema: No Labs: CBC, BMP 01/17/18 05:30 INR, PTT INR Cancelled 01/14/18 15:47 Problem List - Problems (1) Hypothermia Code(s): T68.XXXA - HYPOTHERMIA, INITIAL ENCOUNTER Qualifiers: Encounter type: initial encounter Qualified Code(s): T68.XXXA - Hypothermia , initial encounter (2) PNA (pneumonia) Code(s): J18.9 - PNEUMONIA, UNSPECIFIED ORGANISM Qualifiers: Pneumonia type: aspiration pneumonia Aspiration pneumonia type: unspecified Laterality: unspecified laterality Lung location: unspecified part of lung Qualified Code(s): J69.0 - Pneumonitis due to inhalation of food and vomit (3) Seizure disorder Code(s): G40.909 - EPILEPSY, UNSP, NOT INTRACTABLE, WITHOUT STATUS EPILEPTICUS (4) UTI (urinary tract infection) Code(s): N39.0 - URINARY TRACT INFECTION, SITE NOT SPECIFIED Qualifiers: Urinary tract infection type: site unspecified Hematuria presence: without hematuria Qualified Code(s): N39.0 - Urinary tract infection, site not specified Assessment/Plan Microbiology 01/15/18 08:48 Nasopharyngeal Swab Respiratory Syncytial Virus Ag - Final 01/14/18 15:47 Blood - Peripheral Venous Blood Culture - Preliminary NO GROWTH OBTAINED AFTER 48 HOURS, INCUBATION TO CONTINUE FOR 3 DAYS. Laboratory Tests 01/14/18 01/14/18 01/16/18 15:47 16:54 05:30 WBC 18.1 H Hgb Hct Plt Count BUN 18 Creatinine 1.2 Creat Clearance w eGFR > 60 Ur Leukocyte Esterase 2+ H Urine WBC (Auto) 13 Urine RBC (Auto) 1 01/16/18 01/17/18 05:30 05:30 WBC 13.0 H 12.8 H Hgb 9.2 L Hct 29.5 L Plt Count 515 H BUN Creatinine Creat Clearance w eGFR Ur Leukocyte Esterase Urine WBC (Auto) Urine RBC (Auto) Assessment Respiratory failure Aspiration/ infiltrates UTI with NLF gram negative growing RSV positive Ag ? significance Plan Continue Zosyn pending c/s Isidro MAHAN
[2018-01-17] MEDS ORDERED: DEXTROSE 50%-WATER 25 GM/50 ML DISP.SYRIN ONE (07:31)
[2018-01-17 08:09] LABS: SERUM IRON SATURATION 68 % (15-55); TOTAL IRON BINDING CAPACITY 163 ug/dL (250-450); UIBC 52 ug/dL (111-343)
[2018-01-17] MEDS ORDERED: DEXTROSE 50%-WATER - 25 GM/50 ML VIAL IVPUSH ONE (08:13)
--- NOTE | 2018-01-17 08:33 | PN ---
Physical Exam: SUBJECTIVE: Patient seen and examined in the ICU. Nonverbal and unable to follow commands, resting comfortably in bed watching tv. OBJECTIVE: Vital Signs Period Temp Pulse Resp BP Sys/Saha Pulse Ox Last 24 Hr 97.4 F-99.2 F 73-101 17-29 82-114/42-65 95-97 GENERAL: Awake, nonverbal with severe mr, in no acute distress. HEAD: Microcephaly with no signs of trauma. EYES: Pupils equal, round and reactive to light, extraocular movements intact, sclera anicteric, conjunctiva clear. No lid lag. EARS, NOSE, THROAT: Ears normal, nares patent, oropharynx clear without exudates. Moist mucous membranes. NECK: supple without lymphadenopathy, JVD, or masses. LUNGS: On 40% ventimask. Breath sounds diffusely course improved from yesterday (01/16) with some expiratory wheezes. No accessory muscle use. HEART: Regular rate and rhythm, normal S1 and S2 without murmur, rub or gallop. ABDOMEN: G-tube in place,small amount of brown drainage on the gauze bandage. Soft, nontender, not distended, normoactive bowel sounds, no guarding, no rebound, no masses. MUSCULOSKELETAL: No bony deformities or tenderness. No CVA tenderness. UPPER EXTREMITIES: 2+ pulses, warm, well-perfused. No cyanosis or edema LOWER EXTREMITIES: 2+ pulses, warm, well-perfused. No peripheral edema. NEUROLOGICAL: Nonverbal. wheelchair bound when out of bed. Unable to follow commands. PSYCHIATRIC: Cooperative. Poor eye contact. SKIN: Warm, dry, normal turgor, no rashes or lesions noted. Laboratory Results - last 24 hr 18 18 01/17/18 05:30 05:30 05:30 WBC 12.8 H RBC 3.07 L Hgb 9.2 L Hct 29.5 L MCV 96.3 H MCH 29.9 MCHC 31.1 L RDW 16.4 H Plt Count 515 H MPV 6.9 L Absolute Neuts (auto) 8.6 Neutrophils % 67.2 Lymphocytes % 25.9 D Monocytes % 6.1 Eosinophils % 0.5 Basophils % 0.3 Nucleated RBC % 0 Retic Count 1.85 H Sodium Potassium Chloride Carbon Dioxide Anion Gap BUN Creatinine Creat Clearance w eGFR Random Glucose Calcium Phosphorus Magnesium Iron 111 TIBC 163 L Iron Saturation 68 H Total Bilirubin AST ALT Alkaline Phosphatase Total Protein Albumin 01/17/18 05:30 WBC RBC Hgb Hct MCV MCH MCHC RDW Plt Count MPV Absolute Neuts (auto) Neutrophils % Lymphocytes % Monocytes % Eosinophils % Basophils % Nucleated RBC % Retic Count Sodium 149 H Potassium 4.0 Chloride 119 H Carbon Dioxide 21 Anion Gap 9 BUN 19 H Creatinine 1.3 Creat Clearance w eGFR > 60 Random Glucose 46 L* D Calcium 8.7 Phosphorus 3.7 Magnesium 2.4 Iron TIBC Iron Saturation Total Bilirubin 0.3 AST 21 ALT 20 Alkaline Phosphatase 110 Total Protein 6.9 Albumin 2.1 L Active Medications Generic Name Dose Route Start Last Admin Trade Name Freq PRN Reason Stop Dose Admin Albuterol/Ipratropium 1 amp 01/15/18 00:50 01/15/18 22:52 Duoneb - NEB 1 amp Q4H PRN Administration SHORTNESS OF BREATH Baclofen 10 mg 01/15/18 14:00 01/17/18 06:18 Lioresal - GT 10 mg TID JULIO Administration Clobazam 15 mg 01/15/18 10:00 01/16/18 21:32 Onfi - PO 15 mg BID JULIO Administration Diazepam 10 mg 01/15/18 08:39 01/15/18 09:00 Diastat Rectal Gel - RC 10 mg DAILY PRN Administration seisure above 3mins, notify Diazepam 5 mg 01/17/18 10:00 Valium - GT DAILY@1000 JULIO Heparin Sodium (Porcine) 5,000 unit 01/15/18 06:00 01/17/18 06:18 Heparin - SQ 5,000 unit TID JULIO Administration Piperacillin Sod/Tazobactam 100 mls @ 200 mls/hr 01/15/18 10:00 01/17/18 01: 12 Sod 4.5 gm/ Dextrose IVPB 200 mls/hr Q8H-IV JULIO Administration Protocol Phenylephrine HCl 20,000 mcg/ 250 mls @ 75 mls/hr 01/15/18 09:30 01/16/18 09: 39 Sodium Chloride IVPB Not Given TITR JULIO Protocol 100 MCG/MIN Methylprednisolone Sodium Succinate 40 mg 01/15/18 10:00 01/16/18 09:30 Solu-Medrol - IVPUSH 40 mg DAILY JULIO Administration Topiramate 100 mg 01/16/18 23:55 01/16/18 23:20 Topamax - GT 100 mg BID JULIO Administration ASSESSMENT/PLAN: 27 yo male admitted to the ICU for respiratory distress following a siezure and possible aspiration. Neuro -Severe MR, nonverbal, wheelchair bound -Seizure disorder, no seizures overnight or today 1) Restarted pt on home meds (Diastat 10 mg RC Daily prn, Clobazem 15 mg PO BID, Topiramate 100mg GTBID, Diazepam 5 mg GT Daily) 2) Neurology consult appreciated for seizure control recommendations - recommend continuing home meds If pt seizes again, use ativan for acute seizure and then add keppra for future prevention Neurology did not recommend CT at this time Cardio -No acute cardiac problems as per clinical assessment and chart review Respiratory -Sepsis secondary to probable aspiration pneumonia as pt has chronic history of aspiration -Transferred to ICU for SOB and decreased saturation which is currently resolved -CXR reviewed Extensive pulmonary and pleural changes remain the same -Currently saturating well on ventimask at 40% Successfully weaned off High Flow, will consider transfer to med/surg -Hx of asthma with acute expiratory wheezes Duonebs Q4 PRN GI -G-tube securely in place, will change dressing today. ID -ID consulted and recommends Zosyn 4.5gm IVQ8 for gram - coverage until return of cultures -RSV swab returned positive placed on droplet precautions -CXR as mentioned above, will repeat in AM Hypothermia -92.3 on admission -Currently resolved at 98 -Will continue to monitor with rectal temperature recordings FEN -Fluids: NaCL @ 42 cc/hr -Electrolytes: No electrolyte abnormalities, will monitor BMP in AM -Nutrition: Jevity 1.5 titrating up to 40cc/hr over 18 hours, prosource added VTE prophylaxis -Heparin 5000 units SQTID Disposition -Continue to monitor in the ICU, will consider transfer to med/surg this afternoon or tomorrow Problem List - Problems (1) Hypothermia Code(s): T68.XXXA - HYPOTHERMIA, INITIAL ENCOUNTER Qualifiers: Encounter type: initial encounter Qualified Code(s): T68.XXXA - Hypothermia , initial encounter (2) PNA (pneumonia) Code(s): J18.9 - PNEUMONIA, UNSPECIFIED ORGANISM Qualifiers: Pneumonia type: aspiration pneumonia Aspiration pneumonia type: unspecified Laterality: unspecified laterality Lung location: unspecified part of lung Qualified Code(s): J69.0 - Pneumonitis due to inhalation of food and vomit (3) Seizure disorder Code(s): G40.909 - EPILEPSY, UNSP, NOT INTRACTABLE, WITHOUT STATUS EPILEPTICUS (4) Sepsis Code(s): A41.9 - SEPSIS, UNSPECIFIED ORGANISM Qualifiers: Sepsis type: sepsis due to unspecified organism Qualified Code(s): A41.9 - Sepsis, unspecified organism (5) Asthma Code(s): J45.909 - UNSPECIFIED ASTHMA, UNCOMPLICATED (6) Chronic pulmonary aspiration Code(s): T17.908A - UNSP FB IN RESP TRACT, PART UNSP CAUSING OTH INJURY, INIT (7) DVT prophylaxis Code(s): LBV4695 - (8) Profound mental retardation Code(s): F73 - PROFOUND INTELLECTUAL DISABILITIES Visit type - Emergency Visit Emergency Visit: Yes ED Registration Date: 01/14/18 Care time: The patient presented to the Emergency Department on the above date and was hospitalized for further evaluation of their emergent condition. - New Patient This patient is new to me today: No - Critical Care Critical Care patient: Yes Total Critical Care Time (in minutes): 45 Critical Care Statement: The care of this patient involved high complexity decision making to prevent further life threatening deterioration of the patient 's condition and/or to evaluate & treat vital organ system(s) failure or risk of failure.
--- NOTE | 2018-01-17 09:26 | PN ---
Physical Exam: SUBJECTIVE: Patient seen and examined No new event , comfortable. OBJECTIVE: Vital Signs Temperature 98.2 F 01/17/18 06:00 Pulse Rate 77 01/17/18 09:18 Respiratory Rate 18 01/17/18 09:18 Blood Pressure 98/62 01/17/18 09:18 O2 Sat by Pulse Oximetry (%) 96 01/17/18 07:47 GENERAL: Awake, nonverbal with severe mr, in no acute distress. HEAD: Microcephaly with no signs of trauma. EYES: Pupils equal, round and reactive to light, extraocular movements intact, sclera anicteric, conjunctiva clear. EARS, NOSE, THROAT: Ears normal, oropharynx clear without exudates. Moist mucous membranes. NECK: supple without lymphadenopathy, JVD, or masses. LUNGS: On high flow O2. Breath sounds improved from yesterday (01/16) with some expiratory wheezes. No accessory muscle use. HEART: Regular rate and rhythm, normal S1 and S2 without murmur, rub or gallop. ABDOMEN: G-tube in place, Soft, nontender, not distended, normoactive bowel sounds, no guarding, no rebound, no masses. EXTREMITIES: 2+ pulses, warm, well-perfused. No cyanosis or edema NEUROLOGICAL: Nonverbal. wheelchair bound when out of bed. Unable to follow commands. PSYCHIATRIC: Cooperative. Poor eye contact. SKIN: Warm, dry, normal turgor, no rashes or lesions noted. CBCD WBC 12.8 K/mm3 (4.0-10.0) H 01/17/18 05:30 RBC 3.07 M/mm3 (4.00-5.60) L 01/17/18 05:30 Hgb 9.2 GM/dL (11.7-16.9) L 01/17/18 05:30 Hct 29.5 % (35.4-49) L 01/17/18 05:30 MCV 96.3 fl (80-96) H 01/17/18 05:30 MCHC 31.1 g/dl (32.0-35.9) L 01/17/18 05:30 RDW 16.4 % (11.9-15.9) H 01/17/18 05:30 Plt Count 515 K/MM3 (134-434) H 01/17/18 05:30 MPV 6.9 fl (7.5-11.1) L 01/17/18 05:30 CMP Sodium 149 mmol/L (136-145) H 01/17/18 05:30 Potassium 4.0 mmol/L (3.5-5.1) 01/17/18 05:30 Chloride 119 mmol/L (98-107) H 01/17/18 05:30 Carbon Dioxide 21 mmol/L (21-32) 01/17/18 05:30 Anion Gap 9 (8-16) 01/17/18 05:30 BUN 19 mg/dL (7-18) H 01/17/18 05:30 Creatinine 1.3 mg/dL (0.7-1.3) 01/17/18 05:30 Creat Clearance w eGFR > 60 (>60) 01/17/18 05:30 Random Glucose 46 mg/dL (74-106) L* D 01/17/18 05:30 Calcium 8.7 mg/dL (8.5-10.1) 01/17/18 05:30 Total Bilirubin 0.3 mg/dL (0.2-1.0) 01/17/18 05:30 AST 21 U/L (15-37) 01/17/18 05:30 ALT 20 U/L (12-78) 01/17/18 05:30 Alkaline Phosphatase 110 U/L (45-117) 01/17/18 05:30 Total Protein 6.9 g/dl (6.4-8.2) 01/17/18 05:30 Albumin 2.1 g/dl (3.4-5.0) L 01/17/18 05:30 CARDIAC ENZYMES Creatine Kinase 60 IU/L (39-308) 01/14/18 15:47 Troponin I < 0.02 ng/ml (0.00-0.05) 01/14/18 15:47 Current Medications Generic Name Dose Route Start Last Admin Trade Name Freq PRN Reason Stop Dose Admin Albuterol/Ipratropium 1 amp 01/15/18 00:50 01/15/18 22:52 Duoneb - NEB 1 amp Q4H PRN Administration SHORTNESS OF BREATH Baclofen 10 mg 01/15/18 14:00 01/17/18 06:18 Lioresal - GT 10 mg TID JULIO Administration Clobazam 15 mg 01/15/18 10:00 01/16/18 21:32 Onfi - PO 15 mg BID JULIO Administration Diazepam 10 mg 01/15/18 08:39 01/15/18 09:00 Diastat Rectal Gel - RC 10 mg DAILY PRN Administration seisure above 3mins, fina MAHAN Diazepam 5 mg 01/17/18 10:00 Valium - GT DAILY@1000 JULIO Heparin Sodium (Porcine) 5,000 unit 01/15/18 06:00 01/17/18 06:18 Heparin - SQ 5,000 unit TID JULIO Administration Piperacillin Sod/Tazobactam 100 mls @ 200 mls/hr 01/15/18 10:00 01/17/18 01: 12 Sod 4.5 gm/ Dextrose IVPB 200 mls/hr Q8H-IV JULIO Administration Protocol Phenylephrine HCl 20,000 mcg/ 250 mls @ 75 mls/hr 01/15/18 09:30 01/16/18 09: 39 Sodium Chloride IVPB Not Given TITR JULIO Protocol 100 MCG/MIN Methylprednisolone Sodium Succinate 40 mg 01/15/18 10:00 01/16/18 09:30 Solu-Medrol - IVPUSH 40 mg DAILY JULIO Administration Topiramate 100 mg 01/16/18 23:55 01/16/18 23:20 Topamax - GT 100 mg BID JULIO Administration Home Medications Medication Instructions Recorded Albuterol 0.083% Nebulizer Rani 1 amp NEB QID 01/14/18 [Ventolin 0.083% Nebulizer Soln -] Baclofen 10 mg GT TID 01/14/18 Bisacodyl Suppository [Dulcolax 10 mg RC DAILY PRN 01/14/18 Suppository -] Calcium Carbonate/Vitamin D3 1 each PO DAILY 01/14/18 [Oyster Shell Calcium-Vit D Tab] Clobazam [Onfi -] 15 mg GT BID 01/14/18 Diazepam 5 mg GT DAILY 01/14/18 Diazepam Rectal Gel [Diastat 10 mg RC PRN 01/14/18 *Rectal Gel*] Doxycycline Calcium [Vibramycin] 10 ml GT BID 01/14/18 Ferrous Sulfate 220 mg PEG BID 01/14/18 Lactulose 10 gm PEG BID 01/14/18 Loratadine 10 mg GT DAILY 01/14/18 Mometasone Furoate 17 gm NS BID 01/14/18 Polyethylene Glycol 3350 [Glycolax] 17 gm GT DAILY 01/14/18 Sennosides [Senna] 2 tab GT HS 01/14/18 Simethicone 40 mg PO BID 01/14/18 Sodium Chloride [Saline Mist] 2 spray NS QID 01/14/18 Sulfamethoxazole/Trimethoprim 20 ml GT HS 01/14/18 [Sulfatrim 800-160 mg/20 ml Ramona] Topiramate 100 mg GT BID 01/14/18 Microbiology 01/14/18 15:52 Blood - Peripheral Venous Blood Culture - Preliminary NO GROWTH OBTAINED AFTER 48 HOURS, INCUBATION TO CONTINUE FOR 3 DAYS. 01/16/18 10:45 Sputum - Endotracheal Suction W/O Vent Gram Stain - Final 01/14/18 15:47 Blood - Peripheral Venous Blood Culture - Preliminary NO GROWTH OBTAINED AFTER 48 HOURS, INCUBATION TO CONTINUE FOR 3 DAYS. 01/14/18 16:54 Urine - Urine - Catheterized Urine Culture - Preliminary Non Lactose Fermenting Gnb 01/15/18 08:48 Urine For Antigen Detection Legionella Antigen - Final 01/15/18 08:48 Urine For Antigen Detection Streptococcus pneumoniae Antigen (M - Final 01/15/18 08:48 Nasopharyngeal Swab Influenza Types A,B Antigen - Final 01/15/18 08:48 Nasopharyngeal Swab - Final 01/15/18 08:48 Nasopharyngeal Swab Respiratory Syncytial Virus Ag - Final Urine Test Results Urine Color Yellow 01/14/18 16:54 Urine Appearance Slcloudy 01/14/18 16:54 Urine pH 6.0 (5.0-8.0) D 01/14/18 16:54 Ur Specific Seco 1.006 (1.001-1.035) 01/14/18 16:54 Urine Protein Negative (NEGATIVE) 01/14/18 16:54 Urine Glucose (UA) Negative (NEGATIVE) 01/14/18 16:54 Urine Ketones Negative (NEGATIVE) 01/14/18 16:54 Urine Blood Negative (NEGATIVE) 01/14/18 16:54 Urine Nitrite Negative (NEGATIVE) 01/14/18 16:54 Urine Bilirubin Negative (<2.0 mg/dL) 01/14/18 16:54 Ur Leukocyte Esterase 2+ (NEGATIVE) H 01/14/18 16:54 Urine Bacteria Few /hpf (NONE SEEN) 07/04/18 16:54 Urine Mucus Rare 01/14/18 16:54 Microbiology 01/14/18 15:52 Blood - Peripheral Venous Blood Culture - Final NO GROWTH AFTER 5 DAYS INCUBATION 01/14/18 15:47 Blood - Peripheral Venous Blood Culture - Final NO GROWTH AFTER 5 DAYS INCUBATION 01/16/18 10:45 Sputum - Endotracheal Suction W/O Vent Gram Stain - Final 01/16/18 10:45 Sputum - Endotracheal Suction W/O Vent Sputum Culture - Final NORMAL RESPIRATORY KRISTIAN 01/16/18 15:00 Nares - Mrsa Screen - Right MRSA Screen - Final 01/14/18 16:54 Urine - Urine - Catheterized Urine Culture - Final Providencia Species 01/16/18 10:45 Nares - Mrsa Screen - Left MRSA Screen - Final NO MRSA ISOLATED 01/15/18 08:48 Urine For Antigen Detection Legionella Antigen - Final 01/15/18 08:48 Urine For Antigen Detection Streptococcus pneumoniae Antigen (M - Final 01/15/18 08:48 Nasopharyngeal Swab Influenza Types A,B Antigen - Final 01/15/18 08:48 Nasopharyngeal Swab - Final 01/15/18 08:48 Nasopharyngeal Swab Respiratory Syncytial Virus Ag - Final ASSESSMENT AND PLAN: Patient is a 27 y/o nonverbal male from [facility] admitted for sepsis and was found to be seizing , transferred to ICU. #Sepsis with septic shock on Phenephephrine drip continue due to HCAP vs aspiration PNA from [facility]. ID on the case, started the patient on Zosyn #Acute Hypoxic Respiratory Failure due to RSV/Hcap vs aspiration PNA on NC now. # Acute UTI with NLF GNB on IV antibiotic as per ID will follow the organism #Hypothermia improved off Jesus Alberto huggaer now, continue to monitor temp./vitals q2h # s/p Seizure activity ,continue currnent therapy Topiramate 100 mg GT BID, Valium 5 mg GT QD #Asthma exacerbation; On Solumedrol 40 mg IV push daily and Duoneb 1 amp neb Q4 PRN continue #Anemia f/u iron studies #Paraplegia: reposition to avoid decubiti ulcers #Prophylaxis: Heparin 5000 units subq TID critical care time of 35min Visit type - Emergency Visit Emergency Visit: Yes ED Registration Date: 01/14/18 Care time: The patient presented to the Emergency Department on the above date and was hospitalized for further evaluation of their emergent condition. - New Patient This patient is new to me today: No - Critical Care Critical Care patient: Yes Total Critical Care Time (in minutes): 35 Critical Care Statement: The care of this patient involved high complexity decision making to prevent further life threatening deterioration of the patient 's condition and/or to evaluate & treat vital organ system(s) failure or risk of failure. - Discharge Referral Referred to [facility] No
[2018-01-17] MEDS: methylPREDNISolone NA SUCC 40 MG/1 ML VIAL IVPUSH SCH (09:44)
[2018-01-17] MEDS: cloBAZam 10 MG TABLET PO SCH ×2 (09:45→21:29)
--- NOTE | 2018-01-17 09:45 | PN ---
Teaching Attending Note Name of Resident: Dario Pugh ATTENDING PHYSICIAN STATEMENT I saw and evaluated the patient. I reviewed the resident's note and discussed the case with the resident. I agree with the resident's findings and plan as documented. SUBJECTIVE: Patient seen and examined in the ICU. Appears comfortable on HF NC O2 (35L / 35% FiO2). Off pressors. CXR: No gross change in bilateral airspace disease / congestion Intake & Output 01/14/18 01/15/18 01/16/18 01/17/18 23:59 23:59 23:59 23:59 Intake Total 1800 1999 1250.7 150 Output Total 2540 1000 500 Balance 1800 -541 250.7 -350 Weight 121 lb 121 lb Last Vital Signs Temp Pulse Resp BP Pulse Ox 98.2 F 77 18 98/62 96 01/17/18 06:00 01/17/18 09:18 01/17/18 09:18 01/17/18 09:18 01/17/18 07:47 Active Medications Albuterol/Ipratropium (Duoneb -) 1 amp NEB Q4H PRN PRN Reason: SHORTNESS OF BREATH Last Admin: 01/15/18 22:52 Dose: 1 amp Baclofen (Lioresal -) 10 mg GT TID JULIO Last Admin: 01/17/18 06:18 Dose: 10 mg Clobazam (Onfi -) 15 mg PO BID JULIO Last Admin: 01/17/18 09:45 Dose: 15 mg Diazepam (Diastat Rectal Gel -) 10 mg RC DAILY PRN PRN Reason: seisure above 3mins, notify Last Admin: 01/15/18 09:00 Dose: 10 mg Diazepam (Valium -) 5 mg GT DAILY@1000 JULIO Last Admin: 01/17/18 09:47 Dose: 5 mg Heparin Sodium (Porcine) (Heparin -) 5,000 unit SQ TID JULIO Last Admin: 01/17/18 06:18 Dose: 5,000 unit Piperacillin Sod/Tazobactam (Sod 4.5 gm/ Dextrose) 100 mls @ 200 mls/hr IVPB Q8H-IV JULIO; Protocol Last Admin: 01/17/18 09:45 Dose: 200 mls/hr Phenylephrine HCl 20,000 mcg/ (Sodium Chloride) 250 mls @ 75 mls/hr IVPB TITR JULIO; Protocol Last Admin: 01/16/18 09:39 Dose: Not Given Methylprednisolone Sodium Succinate (Solu-Medrol -) 40 mg IVPUSH DAILY [facility] Last Admin: 01/17/18 09:44 Dose: 40 mg Topiramate (Topamax -) 100 mg GT BID [facility] Last Admin: 01/17/18 09:47 Dose: 100 mg HEENT: (-) Pallor, (-) Icterus Neck: Supple, nontender. No palpable adenopathy or thyromegaly. No JVD Chest: Scattered coarse rhonchi and wheezing Heart: Regular. No S3, rub or murmur Abdomen: Not distended, soft, nontender and no HSM. PEG in place. No rebound or guarding. Normoactive bowel sounds. Ext: Peripheral pulses intact. No leg edema. Limb contractures. Bates in place. Skin: Warm and dry. No petechiae, rash or ecchymosis. Neuro: Unable to follow commands. Paraplegia. Laboratory Results - last 24 hr 01/16/18 01/17/18 01/17/18 05:30 05:30 05:30 WBC 12.8 H RBC 3.07 L Hgb 9.2 L Hct 29.5 L MCV 96.3 H MCH 29.9 MCHC 31.1 L RDW 16.4 H Plt Count 515 H MPV 6.9 L Absolute Neuts (auto) 8.6 Neutrophils % 67.2 Lymphocytes % 25.9 D Monocytes % 6.1 Eosinophils % 0.5 Basophils % 0.3 Nucleated RBC % 0 Sodium 149 H Potassium 4.0 Chloride 119 H Carbon Dioxide 21 Anion Gap 9 BUN 19 H Creatinine 1.3 Creat Clearance w eGFR > 60 Random Glucose 46 L* D Calcium 8.7 Phosphorus 3.7 Magnesium 2.4 Iron 111 TIBC 163 L Iron Saturation 68 H Total Bilirubin 0.3 AST 21 ALT 20 Alkaline Phosphatase 110 Total Protein 6.9 Albumin 2.1 L ASSESSMENT AND PLAN: Sepsis due to HCAP versus Aspiration Pneumonitis Acute hypercapneic respiratory failure Hypothermia MR Paraplegia Asthma Anemia PLAN: Wean HF NC to VM O2 as tolerated ABX per ID Aspiration precautions O2 as needed Enteral feeds BD TX Steroids Monitor off IVF Lasix x [address] Brito Critical care time spent in reviewing chart, evaluating patient and formulating plan - 36 minutes.
[2018-01-17] MEDS ORDERED: FUROSEMIDE 40 MG/4 ML INJECTABLE VIAL IVPUSH ONE (09:46)
[2018-01-17] MEDS: TOPIRAMATE 100 MG TABLET GT SCH ×2 (09:47→21:29)
[2018-01-17] MEDS: PHENYLEPHRINE HCL 20,000 MCG in SODIUM CHLORIDE 248 ML IVPB SCH (10:43)
[2018-01-17] MEDS ORDERED: AMINO ACIDS/PROTEIN HYDROLYS 30 ML LIQUID.PKT PO SCH ×2 (10:45→19:57)
--- NOTE | 2018-01-17 13:07 | PN ---
Progress Note (short form) - Note Progress Note: Neurology HISTORY OF PRESENT ILLNESS: 27 y/o wheelchair quinn, nonverbal male from [facility] in [place] presents with difficulty breathing, rhonchi, and wheezing that began earlier afternoon of admssion. As per health aid at bedside, patient was given multiple nebulizer treatments which were minimally palliative at [facility]. Reported O2 saturation at [facility] was 94%. Patient was also hypothermic upon presentation at 92.3 degrees F. Admitted for sepsis management, ID following for UTI, PNA. Consulted for seizure like activity. He has h/o seizure and has been on TPM, Onfi, Valium as listed below. Had also been given loading dose of Keppra. Due to hypotension ( requiring Phenylephrine) his valium had been held in the morning. Thereafter partial seizure activity occured in evening and discussed with nurse to give valium dose as regularly scheduled. Since then has been seizure free. Spoke with ICU resident this morning and confirmed no witnessed events. If recurrence , then keppra can be added. Has off bp support but still in ICU. On Abx for infection which can precipitate events. Active Medications Albuterol/Ipratropium (Duoneb -) 1 amp NEB Q4H PRN PRN Reason: SHORTNESS OF BREATH Last Admin: 01/15/18 22:52 Dose: 1 amp Amino Acids (Prosource No Carb Liquid Pkt) 30 ml PO ONCE [facility] Baclofen (Lioresal -) 10 mg GT TID [facility] Last Admin: 01/17/18 06:18 Dose: 10 mg Clobazam (Onfi -) 15 mg PO BID [facility] Last Admin: 01/17/18 09:45 Dose: 15 mg Diazepam (Diastat Rectal Gel -) 10 mg RC DAILY PRN PRN Reason: seisure above 3mins, notify Last Admin: 01/15/18 09:00 Dose: 10 mg Diazepam (Valium -) 5 mg GT DAILY@1000 [facility]UL[facility] Last Admin: 01/17/18 09:47 Dose: 5 mg Heparin Sodium (Porcine) (Heparin -) 5,000 unit SQ TID [facility] Last Admin: 01/17/18 06:18 Dose: 5,000 unit Piperacillin Sod/Tazobactam (Sod 4.5 gm/ Dextrose) 100 mls @ 200 mls/hr IVPB Q8H-IV [facility]ULIO; Protocol Last Admin: 01/17/18 09:45 Dose: 200 mls/hr Phenylephrine HCl 20,000 mcg/ (Sodium Chloride) 250 mls @ 75 mls/hr IVPB TITR [facility]ULIO; Protocol Last Admin: 01/17/18 10:43 Dose: Not Given Methylprednisolone Sodium Succinate (Solu-Medrol -) 40 mg IVPUSH DAILY [facility] Last Admin: 01/17/18 09:44 Dose: 40 mg Topiramate (Topamax -) 100 mg GT BID [facility] Last Admin: 01/17/18 09:47 Dose: 100 mg PHYSICAL EXAMINATION Vital Signs Temperature 96.7 F L 01/17/18 10:41 Pulse Rate 68 01/17/18 12:08 Respiratory Rate 18 01/17/18 12:08 Blood Pressure 95/59 01/17/18 12:08 O2 Sat by Pulse Oximetry (%) 96 01/17/18 09:00 GENERAL: Nonverbal, no acute distress. HEAD: normocephalic, atraumatic. EYES: Pupils equal, round and reactive to light, extraocular movements intact, sclera anicteric LUNGS: Course breath sounds and rhonchi, inspiratory and expiratory wheezes and crackles auscultated B/L HEART: Regular rate and rhythm, normal S1 and S2. No murmurs. ABDOMEN: Soft, nontender, not distended, normoactive bowel sounds, no guarding, no rebound. EXTREMITIES: 2+ radial pulses B/L. Unable to appreciate DP pulses. No peripheral edema. Neuro: Nonverbal, CN appear intact, not following commands but moves ext grossly , no abnormal movements noted CBCD WBC 12.8 K/mm3 (4.0-10.0) H 01/17/18 05:30 RBC 3.07 M/mm3 (4.00-5.60) L 01/17/18 05:30 Hgb 9.2 GM/dL (11.7-16.9) L 01/17/18 05:30 Hct 29.5 % (35.4-49) L 01/17/18 05:30 MCV 96.3 fl (80-96) H 01/17/18 05:30 MCHC 31.1 g/dl (32.0-35.9) L 01/17/18 05:30 RDW 16.4 % (11.9-15.9) H 01/17/18 05:30 Plt Count 515 K/MM3 (134-434) H 01/17/18 05:30 MPV 6.9 fl (7.5-11.1) L 01/17/18 05:30 CMP Sodium 149 mmol/L (136-145) H 01/17/18 05:30 Potassium 4.0 mmol/L (3.5-5.1) 01/17/18 05:30 Chloride 119 mmol/L (98-107) H 01/17/18 05:30 Carbon Dioxide 21 mmol/L (21-32) 01/17/18 05:30 Anion Gap 9 (8-16) 01/17/18 05:30 BUN 19 mg/dL (7-18) H 01/17/18 05:30 Creatinine 1.3 mg/dL (0.7-1.3) 01/17/18 05:30 Creat Clearance w eGFR > 60 (>60) 01/17/18 05:30 Calcium 8.7 mg/dL (8.5-10.1) 01/17/18 05:30 Total Bilirubin 0.3 mg/dL (0.2-1.0) 01/17/18 05:30 AST 21 U/L (15-37) 01/17/18 05:30 ALT 20 U/L (12-78) 01/17/18 05:30 Alkaline Phosphatase 110 U/L (45-117) 01/17/18 05:30 Total Protein 6.9 g/dl (6.4-8.2) 01/17/18 05:30 Albumin 2.1 g/dl (3.4-5.0) L 01/17/18 05:30 ASSESSMENT/PLAN: 27 y/o wheelchair quinn, nonverbal male from [facility] in [place] presents with difficulty breathing, rhonchi, and wheezing that began earlier afternoon of admssion. As per health aid at bedside, patient was given multiple nebulizer treatments which were minimally palliative at [facility]. Reported O2 saturation at [facility] was 94%. Patient was also hypothermic upon presentation at 92.3 degrees F. Admitted for sepsis management, ID following for UTI, PNA. Consulted for seizure like activity. He has h/o seizure and has been on TPM, Onfi, Valium as listed below. Had also been given loading dose of Keppra. Due to hypotension (requiring Phenylephrine) his valium had been held in the morning. Thereafter partial seizure activity occured in evening and discussed with nurse to give valium dose as regularly scheduled. Since valium restarted, without seizure activity and stabilized. If recurs, then keppra can be added. 500mg twice daily Now off bp support but still in ICU. Monitor electrolytes Maintain adequate hydration Continue mgmt for infection which can precipitate events Abx per ID Critical care time 35 mins
[2018-01-17] MEDS ORDERED: PT OWN MED DRAWER 7, Y5N ONE (15:59)
[2018-01-17] MEDS ORDERED: MINERAL OIL/PETROLATUM,WHITE 3.5 GM TUBE OU PRN (16:49)
[2018-01-17] MEDS ORDERED: ARTIFICIAL TEARS (POLYVINYL ALCOHOL 1.4%) OPTH DROPS OU ONE (16:49)
[2018-01-17] MEDS ORDERED: diazePAM ACUDIAL 5-7.5-10 MG 1 EACH KIT RC PRN (19:57)
[2018-01-17] MEDS ORDERED: ALBUTEROL SO4 2.5/IPRATROPIUM 0.5 INH SOL 3 ML VIAL.NEB. NEB PRN (19:57)
[2018-01-18] MEDS: PIPERACILLIN/TAZOB 4.5 GM 4.5 GM in DEXTROSE 5%-WATER 100 ML IVPB SCH ×3 (02:30→17:09)
[2018-01-18] MEDS ORDERED: PIPERACILLIN/TAZOBACTAM 4.5 GM VIAL IVPB ONE ×3 (03:32→17:01)
[2018-01-18] MEDS ORDERED: DEXTROSE 5%-WATER 100 ML IVPB ONE ×3 (03:32→17:01)
[2018-01-18 06:12] LABS: BASO % 0.3 % (0-2.0); EOS % 0.7 % (0-4.5); HEMATOCRIT 30.5 % (35.4-49); HEMOGLOBIN 9.8 GM/dL (11.7-16.9); MCH 30.1 pg (25.7-33.7); MEAN CELL VOLUME 94.1 fl (80-96); MEAN PLT VOLUME 6.8 fl (7.5-11.1); MONO % 5.7 % (3.8-10.2); NEUT % 67.3 % (42.8-82.8); PLATELET COUNT 553 K/MM3 (134-434); RBC 3.24 M/mm3 (4.00-5.60); RDW 16.8 % (11.9-15.9); WHITE BLOOD COUNT 12.8 K/mm3 (4.0-10.0)
[2018-01-18] MEDS: BACLOFEN 10 MG TABLET (FP) GT SCH ×3 (06:30→21:18)
[2018-01-18] MEDS: HEPARIN NA (PORCINE) 5,000 UNITS/ML 1ML VIAL SQ SCH ×3 (06:30→21:17)
[2018-01-18 07:05] LABS: CHLORIDE 117 mmol/L (98-107); POTASSIUM 3.5 mmol/L (3.5-5.1); SODIUM 149 mmol/L (136-145)
--- NOTE | 2018-01-18 07:11 | PN ---
Progress Note, Physician Chief Complaint: ID Miguel day 4 Rx Stable over night Temps down (hypothermic) - Current Medication List Current Medications: Active Medications Albuterol/Ipratropium (Duoneb -) 1 amp NEB Q4H PRN PRN Reason: SHORTNESS OF BREATH Amino Acids (Prosource No Carb Liquid Pkt) 30 ml PO DAILY@0800 [facility] Baclofen (Lioresal -) 10 mg GT TID [facility] Last Admin: 01/18/18 06:30 Dose: 10 mg Clobazam (Onfi -) 15 mg PO BID [facility] Last Admin: 01/17/18 21:29 Dose: 15 mg Diazepam (Valium -) 5 mg GT DAILY@1000 [facility] Diazepam (Diastat Rectal Gel -) 10 mg RC DAILY PRN PRN Reason: seisure above 3mins, notify Heparin Sodium (Porcine) (Heparin -) 5,000 unit SQ TID [facility] Last Admin: 01/18/18 06:30 Dose: 5,000 unit Piperacillin Sod/Tazobactam (Sod 4.5 gm/ Dextrose) 100 mls @ 200 mls/hr IVPB Q8H-IV [facility]; Protocol Last Admin: 01/18/18 02:30 Dose: 200 mls/hr Methylprednisolone Sodium Succinate (Solu-Medrol -) 40 mg IVPUSH DAILY [facility] Topiramate (Topamax -) 100 mg GT BID [facility] Last Admin: 01/17/18 21:29 Dose: 100 mg - Objective Vital Signs: Vital Signs Temperature 98.6 F 01/18/18 06:00 Pulse Rate 101 H 01/18/18 06:00 Respiratory Rate 24 01/18/18 06:00 Blood Pressure 106/61 01/18/18 06:00 O2 Sat by Pulse Oximetry (%) 100 01/17/18 21:32 Cardiovascular: Yes: Tachycardia, S1, S2 Respiratory: Yes: WNL, Regular, CTA Bilaterally, Rhonchi Gastrointestinal: Yes: Normal Bowel Sounds, Soft. No: Tenderness, Tenderness, Rebound Edema: No Labs: CBC, BMP 01/18/18 05:30 INR, PTT INR Cancelled 01/14/18 15:47 Problem List - Problems (1) Hypothermia Code(s): T68.XXXA - HYPOTHERMIA, INITIAL ENCOUNTER Qualifiers: Encounter type: initial encounter Qualified Code(s): T68.XXXA - Hypothermia , initial encounter (2) PNA (pneumonia) Code(s): J18.9 - PNEUMONIA, UNSPECIFIED ORGANISM Qualifiers: Pneumonia type: aspiration pneumonia Aspiration pneumonia type: unspecified Laterality: unspecified laterality Lung location: unspecified part of lung Qualified Code(s): J69.0 - Pneumonitis due to inhalation of food and vomit (3) Seizure disorder Code(s): G40.909 - EPILEPSY, UNSP, NOT INTRACTABLE, WITHOUT STATUS EPILEPTICUS (4) UTI (urinary tract infection) Code(s): N39.0 - URINARY TRACT INFECTION, SITE NOT SPECIFIED Qualifiers: Urinary tract infection type: site unspecified Hematuria presence: without hematuria Qualified Code(s): N39.0 - Urinary tract infection, site not specified Assessment/Plan Microbiology 01/14/18 16:54 Urine - Urine - Catheterized Urine Culture - Final Providencia Species 01/14/18 15:52 Blood - Peripheral Venous Blood Culture - Preliminary NO GROWTH OBTAINED AFTER 72 HOURS, INCUBATION TO CONTINUE FOR 2 DAYS. 01/14/18 15:47 Blood - Peripheral Venous Blood Culture - Preliminary NO GROWTH OBTAINED AFTER 72 HOURS, INCUBATION TO CONTINUE FOR 2 DAYS. Laboratory Tests 01/17/18 01/18/18 05:30 05:30 WBC 12.8 H Hgb 9.8 L Plt Count 553 H Creat Clearance w eGFR > 60 Assessment Respiratory failure Aspiration RSV Ag pos ? Providentia sp UTI Plan Would continue Zosyn as ordered to cover aspiration as well as the urinary organism Appears stable at this time Isidro MAHAN
[2018-01-18 07:12] LABS: ALBUMIN 2.1 g/dl (3.4-5.0); ALK PHOS 102 U/L (45-117); ANION GAP 8 (8-16); BILIRUBIN,TOTAL 0.3 mg/dL (0.2-1.0); BLOOD UREA NITROGEN 21 mg/dL (7-18); CALCIUM 8.3 mg/dL (8.5-10.1); CO2 24 mmol/L (21-32); CREATININE 1.2 mg/dL (0.7-1.3); GLUCOSE,RANDOM 92 mg/dL (74-106); MAGNESIUM 2.1 mg/dL (1.8-2.4); PHOSPHOROUS 3.6 mg/dL (2.5-4.9); SGOT/AST 13 U/L (15-37); SGPT/ALT 19 U/L (12-78); TOT PROT 6.8 g/dl (6.4-8.2)
[2018-01-18] MEDS: AMINO ACIDS/PROTEIN HYDROLYS 30 ML LIQUID.PKT PO SCH (07:42)
[2018-01-18] MEDS ORDERED: PT OWN MED DRAWER 7, Y5N ONE ×2 (09:12→14:21)
--- NOTE | 2018-01-18 09:35 | PN ---
Teaching Attending Note Name of Resident: Baldemar La ATTENDING PHYSICIAN STATEMENT I saw and evaluated the patient. I reviewed the resident's note and discussed the case with the resident. I agree with the resident's findings and plan as documented. SUBJECTIVE: Patient seen and examined in the ICU. Appears comfortable on NC O2. Off pressors. No acute events overnight. CXR: rotated, improving bilateral airspace disease / congestion Intake & Output 01/15/18 01/16/18 01/17/18 01/18/18 23:59 23:59 23:59 23:59 Intake Total 1998 1250.7 150 460 Output Total 2540 1000 1500 500 Balance -541 250.7 -1350 -40 Weight 121 lb Last Vital Signs Temp Pulse Resp BP Pulse Ox 97.7 F 102 H 22 105/64 100 01/18/18 08:00 01/18/18 08:00 01/18/18 08:00 01/18/18 08:00 01/18/18 08:04 Active Medications Albuterol/Ipratropium (Duoneb -) 1 amp NEB Q4H PRN PRN Reason: SHORTNESS OF BREATH Amino Acids (Prosource No Carb Liquid Pkt) 30 ml PO DAILY@0800 [facility] Last Admin: 01/18/18 07:42 Dose: 30 ml Baclofen (Lioresal -) 10 mg GT TID [facility] Last Admin: 01/18/18 06:30 Dose: 10 mg Clobazam (Onfi -) 15 mg PO BID [facility] Last Admin: 01/17/18 21:29 Dose: 15 mg Diazepam (Valium -) 5 mg GT DAILY@1000 [facility] Diazepam (Diastat Rectal Gel -) 10 mg RC DAILY PRN PRN Reason: seisure above 3mins, notify Heparin Sodium (Porcine) (Heparin -) 5,000 unit SQ TID [facility] Last Admin: 01/18/18 06:30 Dose: 5,000 unit Piperacillin Sod/Tazobactam (Sod 4.5 gm/ Dextrose) 100 mls @ 200 mls/hr IVPB Q8H-IV [facility]; Protocol Last Admin: 01/18/18 02:30 Dose: 200 mls/hr Methylprednisolone Sodium Succinate (Solu-Medrol -) 40 mg IVPUSH DAILY [facility] Topiramate (Topamax -) 100 mg GT BID [facility] Last Admin: 01/17/18 21:29 Dose: 100 mg HEENT: (-) Pallor, (-) Icterus Neck: Supple, nontender. No palpable adenopathy or thyromegaly. No JVD Chest: Scattered basilar rhonchi Heart: Regular. No S3, rub or murmur Abdomen: Not distended, soft, nontender and no HSM. PEG in place. No rebound or guarding. Normoactive bowel sounds. Ext: Peripheral pulses intact. No leg edema. Limb contractures. Skin: Warm and dry. No petechiae, rash or ecchymosis. Neuro: Unable to follow commands. Paraplegia. Laboratory Results - last 24 hr 01/18/18 01/18/18 05:30 05:30 WBC 12.8 H RBC 3.24 L Hgb 9.8 L Hct 30.5 L MCV 94.1 MCH 30.1 MCHC 32.0 RDW 16.8 H Plt Count 553 H MPV 6.8 L Absolute Neuts (auto) 8.6 Neutrophils % 67.3 Lymphocytes % 26.0 Monocytes % 5.7 Eosinophils % 0.7 Basophils % 0.3 Nucleated RBC % 0 Sodium 149 H Potassium 3.5 Chloride 117 H Carbon Dioxide 24 Anion Gap 8 BUN 21 H Creatinine 1.2 Creat Clearance w eGFR > 60 Random Glucose 92 D Calcium 8.3 L Phosphorus 3.6 Magnesium 2.1 Total Bilirubin 0.3 AST 13 L D ALT 19 Alkaline Phosphatase 102 Total Protein 6.8 Albumin 2.1 L ASSESSMENT AND PLAN: Sepsis due to HCAP versus Aspiration Pneumonitis Acute hypercapneic respiratory failure Hypothermia MR Paraplegia Asthma Anemia PLAN: NC O2 as tolerated ABX per ID Aspiration precautions Enteral feeds BD TX Steroids OD Monitor off IVF Daily assessment for Lasix: none today VTE prophylaxis Floor Dr Brito Critical care time spent in reviewing chart, evaluating patient and formulating plan - 36 minutes.
[2018-01-18] MEDS: TOPIRAMATE 100 MG TABLET GT SCH ×2 (09:44→21:17)
[2018-01-18] MEDS: cloBAZam 10 MG TABLET PO SCH ×2 (09:44→21:18)
[2018-01-18] MEDS: methylPREDNISolone NA SUCC 40 MG/1 ML VIAL IVPUSH SCH (09:44)
[2018-01-18] MEDS: diazePAM 5 MG TABLET GT SCH (09:44)
--- NOTE | 2018-01-18 09:56 | PN ---
Physical Exam: SUBJECTIVE: Patient seen and examined at bedside. No acute events overnight. OBJECTIVE: Vital Signs Temperature 97.7 F 01/18/18 08:00 Pulse Rate 102 H 01/18/18 08:00 Respiratory Rate 22 01/18/18 08:00 Blood Pressure 105/64 01/18/18 08:00 O2 Sat by Pulse Oximetry (%) 100 01/18/18 08:04 GENERAL: The patient is awake but unable to communicate due to MR hx. EYES conjunctiva clear. ENT: Ears normal, nares patent LUNGS: Auscultated anteriorly - difficult to auscultate due to pt making noises during exam. HEART: difficult to auscultate due to pt making noises during exam. ABDOMEN: Soft, nontender, nondistended, normoactive bowel sounds. G-tube in place. EXTREMITIES: warm, well-perfused, no edema. NEUROLOGICAL: MR PSYCH: Normal mood, normal affect. SKIN: Warm, dry, normal turgor, no rashes or lesions noted Laboratory Results - last 24 hr 01/18/18 01/18/18 05:30 05:30 WBC 12.8 H RBC 3.24 L Hgb 9.8 L Hct 30.5 L MCV 94.1 MCH 30.1 MCHC 32.0 RDW 16.8 H Plt Count 553 H MPV 6.8 L Absolute Neuts (auto) 8.6 Neutrophils % 67.3 Lymphocytes % 26.0 Monocytes % 5.7 Eosinophils % 0.7 Basophils % 0.3 Nucleated RBC % 0 Sodium 149 H Potassium 3.5 Chloride 117 H Carbon Dioxide 24 Anion Gap 8 BUN 21 H Creatinine 1.2 Creat Clearance w eGFR > 60 Random Glucose 92 D Calcium 8.3 L Phosphorus 3.6 Magnesium 2.1 Total Bilirubin 0.3 AST 13 L D ALT 19 Alkaline Phosphatase 102 Total Protein 6.8 Albumin 2.1 L Active Medications Generic Name Dose Route Start Last Admin Trade Name Freq PRN Reason Stop Dose Admin Albuterol/Ipratropium 1 amp 01/17/18 19:57 Duoneb - NEB Q4H PRN SHORTNESS OF BREATH Amino Acids 30 ml 01/18/18 08:00 01/18/18 07:42 Prosource No Carb Liquid Pkt PO 30 ml DAILY@0800 JULIO Administration Baclofen 10 mg 01/17/18 22:00 01/18/18 06:30 Lioresal - GT 10 mg TID [facility]ULIO Administration Clobazam 15 mg 01/17/18 22:00 01/18/18 09:44 Onfi - PO 15 mg BID [facility]IO Administration Diazepam 5 mg 01/18/18 10:00 01/18/18 09:44 Valium - GT 5 mg DAILY@1000 JULIO Administration Diazepam 10 mg 01/17/18 19:57 Diastat Rectal Gel - RC DAILY PRN seisure above 3mins, notify Heparin Sodium (Porcine) 5,000 unit 01/17/18 22:00 01/18/18 06:30 Heparin - SQ 5,000 unit TID [facility]IO Administration Piperacillin Sod/Tazobactam 100 mls @ 200 mls/hr 01/18/18 02:00 01/18/18 09: 49 Sod 4.5 gm/ Dextrose IVPB 200 mls/hr Q8H-IV JULIO Administration Protocol Methylprednisolone Sodium Succinate 40 mg 01/18/18 10:00 01/18/18 09:44 Solu-Medrol - IVPUSH 40 mg DAILY [facility] Administration Topiramate 100 mg 01/17/18 22:00 01/18/18 09:44 Topamax - GT 100 mg BID [facility] Administration ASSESSMENT/PLAN: 27 y/o M w/PMH of MR, asthma, wheelchair quinn, nonverbal male from [facility] admitted for aspiration pna secondary to seizures. Admitted to ICU for hypoxic respiratory failure subsequently while on floors. -Sepsis secondary to aspiration pna -Improved -c/w zosyn -ID on board -CXR improved today s/p lasix -RSV positive, on droplet precautions -Hx of seizures -no seizures overnight -c/w topamax 100 mg GT BID, diazepam 5 mg gt qd, clobazam 15 mg gt bid, diazepam rectal gel PRN for seizure -neurology on board -Hx of asthma -not currently in exacerbation -duonebs q4h PRN for SOB/wheezing -DVT ppx -heparin 5000 units sq q8h -FEN -NS @ 42 ml/hr -Monitor lytes -on Tube feeds (Jevity 1.5) -Dispo: -Transfer to tele Visit type - Emergency Visit Emergency Visit: Yes ED Registration Date: 01/14/18 Care time: The patient presented to the Emergency Department on the above date and was hospitalized for further evaluation of their emergent condition. - New Patient This patient is new to me today: Yes Date on this admission: 01/18/18 - Critical Care Critical Care patient: Yes Total Critical Care Time (in minutes): 38 Critical Care Statement: The care of this patient involved high complexity decision making to prevent further life threatening deterioration of the patient 's condition and/or to evaluate & treat vital organ system(s) failure or risk of failure.
--- NOTE | 2018-01-18 12:39 | PN ---
Progress Note (short form) - Note Progress Note: Neurology HISTORY OF PRESENT ILLNESS: 27 y/o wheelchair quinn, nonverbal male from [facility] presents with difficulty breathing, rhonchi, and wheezing that began earlier afternoon of admssion. As per health aid at bedside, patient was given multiple nebulizer treatments which were minimally palliative at [facility]. Reported O2 saturation at [facility] was 94%. Patient was also hypothermic upon presentation at 92.3 degrees F. Admitted for sepsis management, ID following for UTI, PNA. Consulted for seizure like activity. He has h/o seizure and has been on TPM, Onfi, Valium as listed below. Had also been given loading dose of Keppra. Due to hypotension ( requiring Phenylephrine) his valium had been held in the morning. Thereafter partial seizure activity occured in evening and discussed with nurse to give valium dose as regularly scheduled. Since then has been seizure free. Spoke with ICU resident this morning and confirmed no witnessed events. If recurrence , then keppra can be added. Has off bp support but still in ICU. On Abx for infection which can precipitate events. Spoke to nurse and now seizures overnight. Has been stable. Active Medications Albuterol/Ipratropium (Duoneb -) 1 amp NEB Q4H PRN PRN Reason: SHORTNESS OF BREATH Amino Acids (Prosource No Carb Liquid Pkt) 30 ml PO DAILY@0800 [facility] Last Admin: 01/18/18 07:42 Dose: 30 ml Baclofen (Lioresal -) 10 mg GT TID [facility] Last Admin: 01/18/18 06:30 Dose: 10 mg Clobazam (Onfi -) 15 mg PO BID [facility] Last Admin: 01/18/18 09:44 Dose: 15 mg Diazepam (Valium -) 5 mg GT DAILY@1000 [facility] Last Admin: 01/18/18 09:44 Dose: 5 mg Diazepam (Diastat Rectal Gel -) 10 mg RC DAILY PRN PRN Reason: seisure above 3mins, notify Heparin Sodium (Porcine) (Heparin -) 5,000 unit SQ TID [facility] Last Admin: 01/18/18 06:30 Dose: 5,000 unit Piperacillin Sod/Tazobactam (Sod 4.5 gm/ Dextrose) 100 mls @ 200 mls/hr IVPB Q8H-IV [facility]; Protocol Last Admin: 01/18/18 09:49 Dose: 200 mls/hr Methylprednisolone Sodium Succinate (Solu-Medrol -) 40 mg IVPUSH DAILY [facility] Last Admin: 01/18/18 09:44 Dose: 40 mg Topiramate (Topamax -) 100 mg GT BID [facility] Last Admin: 01/18/18 09:44 Dose: 100 mg PHYSICAL EXAMINATION Vital Signs Period Temp Pulse Resp BP Sys/Saha Pulse Ox Last 24 Hr 96 F-98.6 F 59-102 12-24 84-110/45-95 98-100 GENERAL: Nonverbal, no acute distress. HEAD: normocephalic, atraumatic. EYES: Pupils equal, round and reactive to light, extraocular movements intact, sclera anicteric LUNGS: Course breath sounds and rhonchi, inspiratory and expiratory wheezes and crackles auscultated B/L HEART: Regular rate and rhythm, normal S1 and S2. No murmurs. ABDOMEN: Soft, nontender, not distended, normoactive bowel sounds, no guarding, no rebound. EXTREMITIES: 2+ radial pulses B/L. Unable to appreciate DP pulses. No peripheral edema. Neuro: Nonverbal, CN appear intact, not following commands but moves ext grossly , no abnormal movements noted CBCD WBC 12.8 K/mm3 (4.0-10.0) H 01/18/18 05:30 RBC 3.24 M/mm3 (4.00-5.60) L 01/18/18 05:30 Hgb 9.8 GM/dL (11.7-16.9) L 01/18/18 05:30 Hct 30.5 % (35.4-49) L 01/18/18 05:30 MCV 94.1 fl (80-96) 01/18/18 05:30 MCHC 32.0 g/dl (32.0-35.9) 01/18/18 05:30 RDW 16.8 % (11.9-15.9) H 01/18/18 05:30 Plt Count 553 K/MM3 (134-434) H 01/18/18 05:30 MPV 6.8 fl (7.5-11.1) L 01/18/18 05:30 CMP Sodium 149 mmol/L (136-145) H 01/18/18 05:30 Potassium 3.5 mmol/L (3.5-5.1) 01/18/18 05:30 Chloride 117 mmol/L (98-107) H 01/18/18 05:30 Carbon Dioxide 24 mmol/L (21-32) 01/18/18 05:30 Anion Gap 8 (8-16) 01/18/18 05:30 BUN 21 mg/dL (7-18) H 01/18/18 05:30 Creatinine 1.2 mg/dL (0.7-1.3) 01/18/18 05:30 Creat Clearance w eGFR > 60 (>60) 01/18/18 05:30 Calcium 8.3 mg/dL (8.5-10.1) L 01/18/18 05:30 Total Bilirubin 0.3 mg/dL (0.2-1.0) 01/18/18 05:30 AST 13 U/L (15-37) L D 01/18/18 05:30 ALT 19 U/L (12-78) 01/18/18 05:30 Alkaline Phosphatase 102 U/L (45-117) 01/18/18 05:30 Total Protein 6.8 g/dl (6.4-8.2) 01/18/18 05:30 Albumin 2.1 g/dl (3.4-5.0) L 01/18/18 05:30 ASSESSMENT/PLAN: 27 y/o wheelchair quinn, nonverbal male from [facility] presents with difficulty breathing, rhonchi, and wheezing that began earlier afternoon of admssion. As per health aid at bedside, patient was given multiple nebulizer treatments which were minimally palliative at [facility]. Reported O2 saturation at [facility] was 94%. Patient was also hypothermic upon presentation at 92.3 degrees F. Admitted for sepsis management, ID following for UTI, PNA. Consulted for seizure like activity. He has h/o seizure and has been on TPM, Onfi, Valium as listed below. Had also been given loading dose of Keppra. Due to hypotension (requiring Phenylephrine) his valium had been held in the morning. Thereafter partial seizure activity occured in evening and discussed with nurse to give valium dose as regularly scheduled. Since valium restarted, without seizure activity and stabilized. If recurs, then keppra can be added. 500mg twice daily Now off bp support but still in ICU. Monitor electrolytes Maintain adequate hydration Continue mgmt for infection which can precipitate events Abx per ID Discussed with nurse Critical care time 35 mins
[2018-01-18] MEDS ORDERED: ACETAMINOPHEN 650 MG/20.3 ML ORAL SOLUTION (CUPS) PO ONE (17:15)
--- NOTE | 2018-01-18 20:02 | PN ---
<Jonas Hedrick - Last Filed: 01/18/18 20:02> Physical Exam: SUBJECTIVE: Patient seen and examined at bedside. No events overnight OBJECTIVE: Vital Signs Period Temp Pulse Resp BP Sys/Saha Pulse Ox Last 24 Hr 96 F-98.8 F 59-102 12-24 84-110/45-84 98-100 GENERAL: The patient is asleep, nonverbal at baseline and minimally interactive at baseline. LUNGS: Breath sounds equal, coarse breath sounds heard b/l w/ ronchi, no wheezes , no crackles, no accessory muscle use. HEART: Regular rate and rhythm, S1, S2 without murmur, rub or gallop. ABDOMEN: Soft, nontender, nondistended, normoactive bowel sounds, no guarding, no rebound, no hepatosplenomegaly, no masses. EXTREMITIES: 2+ pulses, warm, well-perfused, no edema. NEUROLOGICAL: unable to obtain due to clinical status SKIN: Warm, dry, normal turgor, no rashes or lesions noted Laboratory Results - last 24 hr 01/18/18 01/18/18 05:30 05:30 WBC 12.8 H RBC 3.24 L Hgb 9.8 L Hct 30.5 L MCV 94.1 MCH 30.1 MCHC 32.0 RDW 16.8 H Plt Count 553 H MPV 6.8 L Absolute Neuts (auto) 8.6 Neutrophils % 67.3 Lymphocytes % 26.0 Monocytes % 5.7 Eosinophils % 0.7 Basophils % 0.3 Nucleated RBC % 0 Sodium 149 H Potassium 3.5 Chloride 117 H Carbon Dioxide 24 Anion Gap 8 BUN 21 H Creatinine 1.2 Creat Clearance w eGFR > 60 Random Glucose 92 D Calcium 8.3 L Phosphorus 3.6 Magnesium 2.1 Total Bilirubin 0.3 AST 13 L D ALT 19 Alkaline Phosphatase 102 Total Protein 6.8 Albumin 2.1 L Active Medications Generic Name Dose Route Start Last Admin Trade Name Freq PRN Reason Stop Dose Admin Albuterol/Ipratropium 1 amp 01/17/18 19:57 Duoneb - NEB Q4H PRN SHORTNESS OF BREATH Amino Acids 30 ml 01/18/18 08:00 01/18/18 07:42 Prosource No Carb Liquid Pkt PO 30 ml DAILY@0800 JULIO Administration Baclofen 10 mg 01/17/18 22:00 01/18/18 14:34 Lioresal - GT 10 mg TID JULIO Administration Clobazam 15 mg 01/17/18 22:00 01/18/18 09:44 Onfi - PO 15 mg BID JULIO Administration Diazepam 5 mg 01/18/18 10:00 01/18/18 09:44 Valium - GT 5 mg DAILY@1000 JULIO Administration Diazepam 10 mg 01/17/18 19:57 Diastat Rectal Gel - RC DAILY PRN seisure above 3mins, notify Heparin Sodium (Porcine) 5,000 unit 01/17/18 22:00 01/18/18 14:34 Heparin - SQ 5,000 unit TID JULIO Administration Piperacillin Sod/Tazobactam 100 mls @ 200 mls/hr 01/18/18 02:00 01/18/18 17: 09 Sod 4.5 gm/ Dextrose IVPB 200 mls/hr Q8H-IV JULIO Administration Protocol Methylprednisolone Sodium Succinate 40 mg 01/18/18 10:00 01/18/18 09:44 Solu-Medrol - IVPUSH 40 mg DAILY UJLIO Administration Topiramate 100 mg 01/17/18 22:00 01/18/18 09:44 Topamax - GT 100 mg BID JULIO Administration ASSESSMENT/PLAN: The patient is a 27 y/o male w/ PMH severe MR admitted for sepsis 2/2 possible aspiration PNA vs UTI #Sepsis secondary to aspiration/health care acquired pneumonia vs UTI -Zosyn 4.5 g (day 4) -ID consult -possible CT chest in AM #Acute Hypoxic Respiratory Failure -saturating well on NC -f/u pulm consult #[facility] Seizure-currently stable -cont Topiramate 100 mg GT BID -cont Valium 5 mg GT QD #Asthma exacerbation -cont Solumedrol 40 mg IV push and Duoneb 1 amp neb Q4 PRN #Hypotension- resolved #FEN -no fluids indicated -replete lytes PRN -NPO #Prophy -Hep SQ 5k units TID #dispo -admit ICU Visit type - Emergency Visit Emergency Visit: Yes ED Registration Date: 01/14/18 Care time: The patient presented to the Emergency Department on the above date and was hospitalized for further evaluation of their emergent condition. - New Patient This patient is new to me today: Yes Date on this admission: 01/18/18 - Critical Care Critical Care patient: Yes Total Critical Care Time (in minutes): 40 Critical Care Statement: The care of this patient involved high complexity decision making to prevent further life threatening deterioration of the patient 's condition and/or to evaluate & treat vital organ system(s) failure or risk of failure. <Cassandra Brewer - Last Filed: 01/18/18 21:38> Physical Exam: Agree with the resident note, continue the current therapy.
[2018-01-19] MEDS: PIPERACILLIN/TAZOB 4.5 GM 4.5 GM in DEXTROSE 5%-WATER 100 ML IVPB SCH ×3 (01:31→18:01)
[2018-01-19] MEDS ORDERED: DEXTROSE 5%-WATER 100 ML IVPB ONE ×3 (05:32→17:52)
[2018-01-19] MEDS ORDERED: PIPERACILLIN/TAZOBACTAM 4.5 GM VIAL IVPB ONE ×3 (05:32→17:52)
[2018-01-19 05:57] LABS: BASO % 0.2 % (0-2.0); EOS % 1.5 % (0-4.5); HEMATOCRIT 28.8 % (35.4-49); HEMOGLOBIN 9.2 GM/dL (11.7-16.9); LYMPH % 31.2 % (8-40); MCH 30.1 pg (25.7-33.7); MEAN CELL VOLUME 94.2 fl (80-96); MEAN PLT VOLUME 6.9 fl (7.5-11.1); MONO % 8.5 % (3.8-10.2); NEUT % 58.6 % (42.8-82.8); PLATELET COUNT 525 K/MM3 (134-434); RBC 3.06 M/mm3 (4.00-5.60); RDW 16.6 % (11.9-15.9); WHITE BLOOD COUNT 13.4 K/mm3 (4.0-10.0)
[2018-01-19] MEDS: BACLOFEN 10 MG TABLET (FP) GT SCH ×3 (06:13→21:30)
[2018-01-19] MEDS: HEPARIN NA (PORCINE) 5,000 UNITS/ML 1ML VIAL SQ SCH ×3 (06:13→21:29)
[2018-01-19 06:26] LABS: ALBUMIN 2.1 g/dl (3.4-5.0); ANION GAP 5 (8-16); BLOOD UREA NITROGEN 29 mg/dL (7-18); CALCIUM 8.3 mg/dL (8.5-10.1); CHLORIDE 116 mmol/L (98-107); CO2 28 mmol/L (21-32); GLUCOSE,RANDOM 61 mg/dL (74-106); MAGNESIUM 2.2 mg/dL (1.8-2.4); POTASSIUM 3.8 mmol/L (3.5-5.1); SODIUM 149 mmol/L (136-145)
[2018-01-19 06:30] LABS: ALK PHOS 96 U/L (45-117); BILIRUBIN,TOTAL 0.2 mg/dL (0.2-1.0); CREATININE 1.3 mg/dL (0.7-1.3); SGOT/AST 12 U/L (15-37); SGPT/ALT 18 U/L (12-78); TOT PROT 6.6 g/dl (6.4-8.2)
--- NOTE | 2018-01-19 07:22 | PN ---
Progress Note, Physician Chief Complaint: ID Stable awaiting transfer Zosyn day 5 antibiotics Afebrile - Current Medication List Current Medications: Active Medications Albuterol/Ipratropium (Duoneb -) 1 amp NEB Q4H PRN PRN Reason: SHORTNESS OF BREATH Amino Acids (Prosource No Carb Liquid Pkt) 30 ml PO DAILY@0800 [facility] Last Admin: 01/18/18 07:42 Dose: 30 ml Baclofen (Lioresal -) 10 mg GT TID [facility] Last Admin: 01/19/18 06:13 Dose: 10 mg Clobazam (Onfi -) 15 mg PO BID [facility] Last Admin: 01/18/18 21:18 Dose: 15 mg Diazepam (Valium -) 5 mg GT DAILY@1000 [facility] Last Admin: 01/18/18 09:44 Dose: 5 mg Diazepam (Diastat Rectal Gel -) 10 mg RC DAILY PRN PRN Reason: seisure above 3mins, notify Heparin Sodium (Porcine) (Heparin -) 5,000 unit SQ TID [facility] Last Admin: 01/19/18 06:13 Dose: 5,000 unit Piperacillin Sod/Tazobactam (Sod 4.5 gm/ Dextrose) 100 mls @ 200 mls/hr IVPB Q8H-IV [facility]; Protocol Last Admin: 01/19/18 01:31 Dose: 200 mls/hr Methylprednisolone Sodium Succinate (Solu-Medrol -) 40 mg IVPUSH DAILY [facility] Last Admin: 01/18/18 09:44 Dose: 40 mg Topiramate (Topamax -) 100 mg GT BID [facility] Last Admin: 01/18/18 21:17 Dose: 100 mg - Objective Vital Signs: Vital Signs Temperature 97.2 F L 01/19/18 06:00 Pulse Rate 78 01/19/18 06:00 Respiratory Rate 14 01/19/18 06:00 Blood Pressure 95/60 01/19/18 06:00 O2 Sat by Pulse Oximetry (%) 100 01/18/18 20:00 Cardiovascular: Yes: S1, S2 Respiratory: Yes: WNL, Regular, CTA Bilaterally, Rhonchi Gastrointestinal: Yes: WNL, Normal Bowel Sounds, Soft. No: Tenderness, Tenderness, Epigastrium Edema: No Labs: CBC, BMP 01/19/18 05:30 01/19/18 05:30 INR, PTT INR Cancelled 01/14/18 15:47 Problem List - Problems (1) Hypothermia Code(s): T68.XXXA - HYPOTHERMIA, INITIAL ENCOUNTER Qualifiers: Encounter type: initial encounter Qualified Code(s): T68.XXXA - Hypothermia , initial encounter (2) PNA (pneumonia) Code(s): J18.9 - PNEUMONIA, UNSPECIFIED ORGANISM Qualifiers: Pneumonia type: aspiration pneumonia Aspiration pneumonia type: unspecified Laterality: unspecified laterality Lung location: unspecified part of lung Qualified Code(s): J69.0 - Pneumonitis due to inhalation of food and vomit (3) Seizure disorder Code(s): G40.909 - EPILEPSY, UNSP, NOT INTRACTABLE, WITHOUT STATUS EPILEPTICUS (4) UTI (urinary tract infection) Code(s): N39.0 - URINARY TRACT INFECTION, SITE NOT SPECIFIED Qualifiers: Urinary tract infection type: site unspecified Hematuria presence: without hematuria Qualified Code(s): N39.0 - Urinary tract infection, site not specified Assessment/Plan Microbiology 01/16/18 15:00 Nares - Mrsa Screen - Right MRSA Screen - Final 01/16/18 10:45 Sputum - Endotracheal Suction W/O Vent Gram Stain - Final 01/16/18 10:45 Sputum - Endotracheal Suction W/O Vent Sputum Culture - Final NORMAL RESPIRATORY KRISTIAN 01/16/18 10:45 Nares - Mrsa Screen - Left MRSA Screen - Final NO MRSA ISOLATED 01/15/18 08:48 Urine For Antigen Detection Legionella Antigen - Final 01/15/18 08:48 Urine For Antigen Detection Streptococcus pneumoniae Antigen (M - Final 01/14/18 16:54 Urine - Urine - Catheterized Urine Culture - Final Providencia Species Laboratory Tests 01/19/18 01/19/18 05:30 05:30 WBC 13.4 H Hgb 9.2 L Plt Count 525 H BUN 29 H Creatinine 1.3 Creat Clearance w eGFR > 60 Assessment Respiratory failure improved Pneumonia suspect aspiration Paraplegia Plan Stop steroids Zosyn continue another 48 hours then stop Kindly recall as needed Can stop isolation RSV AG pos Isidro MAHAN
--- NOTE | 2018-01-19 08:34 | PN ---
Physical Exam: SUBJECTIVE: Patient seen and examined in the ICU. awaiting transfer to [facility]. resting comfortably in bed, no current agitation OBJECTIVE: Vital Signs Period Temp Pulse Resp BP Sys/Saha Pulse Ox Last 24 Hr 97 F-98.8 F 74-95 12-24 84-110/40-64 100-100 GENERAL: Awake, nonverbal with severe mr, in no acute distress. HEAD: Microcephaly with no signs of trauma. EYES: Pupils equal, round and reactive to light, extraocular movements intact, sclera anicteric, conjunctiva clear. No lid lag. EARS, NOSE, THROAT: Ears normal, nares patent, oropharynx clear without exudates. Moist mucous membranes. NECK: supple without lymphadenopathy, JVD, or masses. LUNGS: 2L NC. Breath sounds course greatly improved from friday (01/17). No wheezes. No accessory muscle use. HEART: Regular rate and rhythm, normal S1 and S2 without murmur, rub or gallop. ABDOMEN: G-tube in place. Soft, nontender, not distended, normoactive bowel sounds, no guarding, no rebound, no masses. MUSCULOSKELETAL: No bony deformities or tenderness. No CVA tenderness. UPPER EXTREMITIES: 2+ pulses, warm, well-perfused. No cyanosis or edema LOWER EXTREMITIES: 2+ pulses, warm, well-perfused. No peripheral edema. NEUROLOGICAL: Nonverbal. wheelchair bound when out of bed. Unable to follow commands. PSYCHIATRIC: Cooperative. Poor eye contact. SKIN: Warm, dry, normal turgor, no rashes or lesions noted. Laboratory Results - last 24 hr 01/19/18 01/19/18 05:30 05:30 WBC 13.4 H RBC 3.06 L Hgb 9.2 L Hct 28.8 L MCV 94.2 MCH 30.1 MCHC 32.0 RDW 16.6 H Plt Count 525 H MPV 6.9 L Absolute Neuts (auto) 7.9 Neutrophils % 58.6 Lymphocytes % 31.2 Monocytes % 8.5 Eosinophils % 1.5 D Basophils % 0.2 Nucleated RBC % 0 Sodium 149 H Potassium 3.8 Chloride 116 H Carbon Dioxide 28 Anion Gap 5 L BUN 29 H Creatinine 1.3 Creat Clearance w eGFR > 60 Random Glucose 61 L D Calcium 8.3 L Phosphorus 4.0 Magnesium 2.2 Total Bilirubin 0.2 AST 12 L ALT 18 Alkaline Phosphatase 96 Total Protein 6.6 Albumin 2.1 L Active Medications Generic Name Dose Route Start Last Admin Trade Name Marcela PRN Reason Stop Dose Admin Albuterol/Ipratropium 1 amp 01/17/18 19:57 Duoneb - NEB Q4H PRN SHORTNESS OF BREATH Amino Acids 30 ml 01/18/18 08:00 01/18/18 07:42 Prosource No Carb Liquid Pkt PO 30 ml DAILY@0800 JULIO Administration Baclofen 10 mg 01/17/18 22:00 01/19/18 06:13 Lioresal - GT 10 mg TID JULIO Administration Clobazam 15 mg 01/17/18 22:00 01/18/18 21:18 Onfi - PO 15 mg BID JULIO Administration Diazepam 5 mg 01/18/18 10:00 01/18/18 09:44 Valium - GT 5 mg DAILY@1000 JULIO Administration Diazepam 10 mg 01/17/18 19:57 Diastat Rectal Gel - RC DAILY PRN seisure above 3mins, notifcari MAHAN Heparin Sodium (Porcine) 5,000 unit 01/17/18 22:00 01/19/18 06:13 Heparin - SQ 5,000 unit TID JULIO Administration Piperacillin Sod/Tazobactam 100 mls @ 200 mls/hr 01/18/18 02:00 01/19/18 01: 31 Sod 4.5 gm/ Dextrose IVPB 200 mls/hr Q8H-IV JULIO Administration Protocol Methylprednisolone Sodium Succinate 40 mg 01/18/18 10:00 01/18/18 09:44 Solu-Medrol - IVPUSH 40 mg DAILY JULIO Administration Topiramate 100 mg 01/17/18 22:00 01/18/18 21:17 Topamax - GT 100 mg BID JULIO Administration ASSESSMENT/PLAN: 27 yo male admitted to the ICU for respiratory distress following a siezure and possible aspiration. Neuro -Severe MR, nonverbal, wheelchair bound -Seizure disorder, no seizures overnight or today 1) Restarted pt on home meds (Diastat 10 mg RC Daily prn, Clobazem 15 mg PO BID, Topiramate 100mg GTBID, Diazepam 5 mg GT Daily) 2) Neurology consult appreciated for seizure control recommendations - recommend continuing home meds If pt seizes again, use ativan for acute seizure and then add keppra for future prevention Neurology did not recommend CT at this time Cardio -No acute cardiac problems as per clinical assessment and chart review Respiratory -Sepsis secondary to probable aspiration pneumonia as pt has chronic history of aspiration -Transferred to ICU for SOB and decreased saturation which is currently resolved -CXR reviewed Extensive pulmonary and pleural changes remain the same, somewhat worse on the right today -Currently saturating well on 2L NC -Hx of asthma with acute expiratory wheezes Duonebs Q4 PRN -Pt received lasix over the weekend with improvement. Consider redosing if respiratory function worsens GI -G-tube securely in place. ID -ID consulted and recommends Zosyn 4.5gm IVQ8 for gram - coverage for 2 more days -RSV positive last week no longer on droplet precautions as per ID -CXR as mentioned above, will repeat in AM Hypothermia -92.3 on admission -Currently resolved at 98 -Will continue to monitor with rectal temperature recordings FEN -Fluids: No fluids at this time -Electrolytes: No electrolyte abnormalities, will monitor BMP in AM -Nutrition: Jevity 1.5 titrating up to 40cc/hr over 18 hours, prosource added VTE prophylaxis -Heparin 5000 units SQTID Disposition -Transfer order changed from telemetry to med/surg Problem List - Problems (1) Hypothermia Code(s): T68.XXXA - HYPOTHERMIA, INITIAL ENCOUNTER Qualifiers: Encounter type: initial encounter Qualified Code(s): T68.XXXA - Hypothermia , initial encounter (2) PNA (pneumonia) Code(s): J18.9 - PNEUMONIA, UNSPECIFIED ORGANISM Qualifiers: Pneumonia type: aspiration pneumonia Aspiration pneumonia type: unspecified Laterality: unspecified laterality Lung location: unspecified part of lung Qualified Code(s): J69.0 - Pneumonitis due to inhalation of food and vomit (3) Seizure disorder Code(s): G40.909 - EPILEPSY, UNSP, NOT INTRACTABLE, WITHOUT STATUS EPILEPTICUS (4) Sepsis Code(s): A41.9 - SEPSIS, UNSPECIFIED ORGANISM Qualifiers: Sepsis type: sepsis due to unspecified organism Qualified Code(s): A41.9 - Sepsis, unspecified organism (5) Asthma Code(s): J45.909 - UNSPECIFIED ASTHMA, UNCOMPLICATED (6) Chronic pulmonary aspiration Code(s): T17.908A - UNSP FB IN RESP TRACT, PART UNSP CAUSING OTH INJURY, INIT (7) DVT prophylaxis Code(s): AER2062 - (8) Profound mental retardation Code(s): F73 - PROFOUND INTELLECTUAL DISABILITIES Visit type - Emergency Visit Emergency Visit: Yes ED Registration Date: 01/14/18 Care time: The patient presented to the Emergency Department on the above date and was hospitalized for further evaluation of their emergent condition. - New Patient This patient is new to me today: No - Critical Care Critical Care patient: Yes Total Critical Care Time (in minutes): 35 Critical Care Statement: The care of this patient involved high complexity decision making to prevent further life threatening deterioration of the patient 's condition and/or to evaluate & treat vital organ system(s) failure or risk of failure.
[2018-01-19] MEDS: AMINO ACIDS/PROTEIN HYDROLYS 30 ML LIQUID.PKT PO SCH (08:46)
--- NOTE | 2018-01-19 08:59 | PN ---
Progress Note (short form) - Note Progress Note: Neurology HISTORY OF PRESENT ILLNESS: 27 y/o wheelchair quinn, nonverbal male from [facility] presents with difficulty breathing, rhonchi, and wheezing that began earlier afternoon of admssion. As per health aid at bedside, patient was given multiple nebulizer treatments which were minimally palliative at [facility]. Reported O2 saturation at [facility] was 94%. Patient was also hypothermic upon presentation at 92.3 degrees F. Admitted for sepsis management, ID following for UTI, PNA. Consulted for seizure like activity. He has h/o seizure and has been on TPM, Onfi, Valium as listed below. Had also been given loading dose of Keppra. Due to hypotension ( requiring Phenylephrine) his valium had been held in the morning. Thereafter partial seizure activity occured in evening and discussed with nurse to give valium dose as regularly scheduled. Since then has been seizure free. Spoke with ICU team and confirmed no witnessed events. If recurrence, then keppra can be added. Has off bp support but still in ICU. On Abx for infection which can precipitate events. Spoke to nurse and now seizures overnight. Has been stable. Active Medications Albuterol/Ipratropium (Duoneb -) 1 amp NEB Q4H PRN PRN Reason: SHORTNESS OF BREATH Amino Acids (Prosource No Carb Liquid Pkt) 30 ml PO DAILY@0800 [facility] Last Admin: 01/19/18 08:46 Dose: 30 ml Baclofen (Lioresal -) 10 mg GT TID [facility] Last Admin: 01/19/18 06:13 Dose: 10 mg Clobazam (Onfi -) 15 mg PO BID [facility] Last Admin: 01/18/18 21:18 Dose: 15 mg Diazepam (Valium -) 5 mg GT DAILY@1000 [facility] Last Admin: 01/18/18 09:44 Dose: 5 mg Diazepam (Diastat Rectal Gel -) 10 mg RC DAILY PRN PRN Reason: seisure above 3mins, fina MAHAN Heparin Sodium (Porcine) (Heparin -) 5,000 unit SQ TID [facility] Last Admin: 01/19/18 06:13 Dose: 5,000 unit Piperacillin Sod/Tazobactam (Sod 4.5 gm/ Dextrose) 100 mls @ 200 mls/hr IVPB Q8H-IV [facility]; Protocol Last Admin: 01/19/18 01:31 Dose: 200 mls/hr Methylprednisolone Sodium Succinate (Solu-Medrol -) 40 mg IVPUSH DAILY [facility] Last Admin: 01/18/18 09:44 Dose: 40 mg Topiramate (Topamax -) 100 mg GT BID [facility] Last Admin: 01/18/18 21:17 Dose: 100 mg PHYSICAL EXAMINATION Vital Signs Temperature 97.2 F L 01/19/18 06:00 Pulse Rate 92 H 01/19/18 08:00 Respiratory Rate 15 01/19/18 08:00 Blood Pressure 122/76 01/19/18 08:00 O2 Sat by Pulse Oximetry (%) 100 01/18/18 20:00 GENERAL: Nonverbal, no acute distress. HEAD: normocephalic, atraumatic. EYES: Pupils equal, round and reactive to light, extraocular movements intact, sclera anicteric LUNGS: Course breath sounds and rhonchi, inspiratory and expiratory wheezes and crackles auscultated B/L HEART: Regular rate and rhythm, normal S1 and S2. No murmurs. ABDOMEN: Soft, nontender, not distended, normoactive bowel sounds, no guarding, no rebound. EXTREMITIES: 2+ radial pulses B/L. Unable to appreciate DP pulses. No peripheral edema. Neuro: Nonverbal, CN appear intact, not following commands but moves ext grossly , no abnormal movements noted CBCD WBC 13.4 K/mm3 (4.0-10.0) H 01/19/18 05:30 RBC 3.06 M/mm3 (4.00-5.60) L 01/19/18 05:30 Hgb 9.2 GM/dL (11.7-16.9) L 01/19/18 05:30 Hct 28.8 % (35.4-49) L 01/19/18 05:30 MCV 94.2 fl (80-96) 01/19/18 05:30 MCHC 32.0 g/dl (32.0-35.9) 01/19/18 05:30 RDW 16.6 % (11.9-15.9) H 01/19/18 05:30 Plt Count 525 K/MM3 (134-434) H 01/19/18 05:30 MPV 6.9 fl (7.5-11.1) L 01/19/18 05:30 CMP Sodium 149 mmol/L (136-145) H 01/19/18 05:30 Potassium 3.8 mmol/L (3.5-5.1) 01/19/18 05:30 Chloride 116 mmol/L (98-107) H 01/19/18 05:30 Carbon Dioxide 28 mmol/L (21-32) 01/19/18 05:30 Anion Gap 5 (8-16) L 01/19/18 05:30 BUN 29 mg/dL (7-18) H 01/19/18 05:30 Creatinine 1.3 mg/dL (0.7-1.3) 01/19/18 05:30 Creat Clearance w eGFR > 60 (>60) 01/19/18 05:30 Calcium 8.3 mg/dL (8.5-10.1) L 01/19/18 05:30 Total Bilirubin 0.2 mg/dL (0.2-1.0) 01/19/18 05:30 AST 12 U/L (15-37) L 01/19/18 05:30 ALT 18 U/L (12-78) 01/19/18 05:30 Alkaline Phosphatase 96 U/L (45-117) 01/19/18 05:30 Total Protein 6.6 g/dl (6.4-8.2) 01/19/18 05:30 Albumin 2.1 g/dl (3.4-5.0) L 01/19/18 05:30 ASSESSMENT/PLAN: 27 y/o wheelchair quinn, nonverbal male from [facility] presents with difficulty breathing, rhonchi, and wheezing that began earlier afternoon of admssion. As per health aid at bedside, patient was given multiple nebulizer treatments which were minimally palliative at [facility]. Reported O2 saturation at [facility] was 94%. Patient was also hypothermic upon presentation at 92.3 degrees F. Admitted for sepsis management, ID following for UTI, PNA. Consulted for seizure like activity. He has h/o seizure and has been on TPM, Onfi, Valium as listed below. Had also been given loading dose of Keppra. Due to hypotension (requiring Phenylephrine) his valium had been held in the morning. Thereafter partial seizure activity occured in evening and discussed with nurse to give valium dose as regularly scheduled. Since valium restarted, without seizure activity and stabilized. If recurs, then keppra can be added. 500mg twice daily Now off bp support but still in ICU. Monitor electrolytes Maintain adequate hydration Continue mgmt for infection which can precipitate events Abx per ID Has been stable neurologically Critical care time 35 mins
[2018-01-19] MEDS: cloBAZam 10 MG TABLET PO SCH ×2 (09:38→21:30)
[2018-01-19] MEDS: TOPIRAMATE 100 MG TABLET GT SCH ×2 (09:38→21:30)
[2018-01-19] MEDS: methylPREDNISolone NA SUCC 40 MG/1 ML VIAL IVPUSH SCH (09:39)
[2018-01-19] MEDS: diazePAM 5 MG TABLET GT SCH (09:39)
--- NOTE | 2018-01-19 10:44 | PN ---
Teaching Attending Note Name of Resident: Dario Pugh ATTENDING PHYSICIAN STATEMENT I saw and evaluated the patient. I reviewed the resident's note and discussed the case with the resident. I agree with the resident's findings and plan as documented. SUBJECTIVE: Patient seen and examined in the ICU. Appears comfortable on NC O2. Remains off pressors. No acute events overnight. CXR: No gross change in bilateral airspace disease / congestion from yesterday Intake & Output 01/16/18 01/17/18 01/18/18 01/19/18 23:59 23:59 23:59 23:59 Intake Total 1250.7 150 1160 1040 Output Total 1000 1500 500 Balance 250.7 -9242 891 2626 Last Vital Signs Temp Pulse Resp BP Pulse Ox 97.2 F L 89 16 122/75 100 01/19/18 06:00 01/19/18 10:00 01/19/18 10:00 01/19/18 10:00 01/18/18 20:00 Active Medications Albuterol/Ipratropium (Duoneb -) 1 amp NEB Q4H PRN PRN Reason: SHORTNESS OF BREATH Amino Acids (Prosource No Carb Liquid Pkt) 30 ml PO DAILY@0800 [facility] Last Admin: 01/19/18 08:46 Dose: 30 ml Baclofen (Lioresal -) 10 mg GT TID [facility] Last Admin: 01/19/18 06:13 Dose: 10 mg Clobazam (Onfi -) 15 mg PO BID [facility] Last Admin: 01/19/18 09:38 Dose: 15 mg Diazepam (Valium -) 5 mg GT DAILY@1000 [facility] Last Admin: 01/19/18 09:39 Dose: 5 mg Diazepam (Diastat Rectal Gel -) 10 mg RC DAILY PRN PRN Reason: seisure above 3mins, notify Heparin Sodium (Porcine) (Heparin -) 5,000 unit SQ TID [facility] Last Admin: 01/19/18 06:13 Dose: 5,000 unit Piperacillin Sod/Tazobactam (Sod 4.5 gm/ Dextrose) 100 mls @ 200 mls/hr IVPB Q8H-IV [facility]; Protocol Last Admin: 01/19/18 09:38 Dose: 200 mls/hr Methylprednisolone Sodium Succinate (Solu-Medrol -) 40 mg IVPUSH DAILY [facility] Last Admin: 01/19/18 09:39 Dose: 40 mg Topiramate (Topamax -) 100 mg GT BID [facility] Last Admin: 01/19/18 09:38 Dose: 100 mg HEENT: (-) Pallor, (-) Icterus Neck: Supple, nontender. No palpable adenopathy or thyromegaly. No JVD Chest: Scattered basilar rhonchi Heart: Regular. No S3, rub or murmur Abdomen: Not distended, soft, nontender and no HSM. PEG in place. No rebound or guarding. Normoactive bowel sounds. Ext: Peripheral pulses intact. No leg edema. Limb contractures. Skin: Warm and dry. No petechiae, rash or ecchymosis. Neuro: Unable to follow commands. Paraplegia. Laboratory Results - last 24 hr 01/19/18 01/19/18 05:30 05:30 WBC 13.4 H RBC 3.06 L Hgb 9.2 L Hct 28.8 L MCV 94.2 MCH 30.1 MCHC 32.0 RDW 16.6 H Plt Count 525 H MPV 6.9 L Absolute Neuts (auto) 7.9 Neutrophils % 58.6 Lymphocytes % 31.2 Monocytes % 8.5 Eosinophils % 1.5 D Basophils % 0.2 Nucleated RBC % 0 Sodium 149 H Potassium 3.8 Chloride 116 H Carbon Dioxide 28 Anion Gap 5 L BUN 29 H Creatinine 1.3 Creat Clearance w eGFR > 60 Random Glucose 61 L D Calcium 8.3 L Phosphorus 4.0 Magnesium 2.2 Total Bilirubin 0.2 AST 12 L ALT 18 Alkaline Phosphatase 96 Total Protein 6.6 Albumin 2.1 L ASSESSMENT AND PLAN: Sepsis due to HCAP versus Aspiration Pneumonitis Acute hypercapneic respiratory failure Hypothermia MR Paraplegia Asthma Anemia PLAN: NC O2 as tolerated ABX per ID Aspiration precautions Enteral feeds BD TX Steroids OD Monitor off IVF VTE prophylaxis Floor Dr Brito Critical care time spent in reviewing chart, evaluating patient and formulating plan - 36 minutes.
[2018-01-19] MEDS ORDERED: PT OWN MED DRAWER 7, Y5N ONE (14:39)
--- NOTE | 2018-01-19 17:29 | PN ---
Physical Exam: SUBJECTIVE: Patient seen and examined. As per nurse, no acute events overnight. Pt seen resting comfortably. OBJECTIVE: Vital Signs Period Temp Pulse Resp BP Sys/Saha Pulse Ox Last 24 Hr 96.6 F-97.3 F 74-92 12-23 88-123/40-82 95-100 GENERAL: Nonverbal, paraplegic. Awake. HEENT: NC/AT. On nasal cannula. NECK: no LAD. No JVD. LUNGS: Bilateral wheezes present in upper and lower lobes. No accessory muscle use. Currently on High flow oxygen. HEART: Regular rate and rhythm, S1, S2 without murmur, rub or gallop. ABDOMEN: Soft, nontender, nondistended, normoactive bowel sounds, no masses. EXTREMITIES: No peripheral edema noted. B/l lower extremities contracted. NEUROLOGICAL: Unable to perform. SKIN: Warm, dry, normal turgor, no rashes or lesions noted Laboratory Results - last 24 hr 01/19/18 01/19/18 05:30 05:30 WBC 13.4 H RBC 3.06 L Hgb 9.2 L Hct 28.8 L MCV 94.2 MCH 30.1 MCHC 32.0 RDW 16.6 H Plt Count 525 H MPV 6.9 L Absolute Neuts (auto) 7.9 Neutrophils % 58.6 Lymphocytes % 31.2 Monocytes % 8.5 Eosinophils % 1.5 D Basophils % 0.2 Nucleated RBC % 0 Sodium 149 H Potassium 3.8 Chloride 116 H Carbon Dioxide 28 Anion Gap 5 L BUN 29 H Creatinine 1.3 Creat Clearance w eGFR > 60 Random Glucose 61 L D Calcium 8.3 L Phosphorus 4.0 Magnesium 2.2 Total Bilirubin 0.2 AST 12 L ALT 18 Alkaline Phosphatase 96 Total Protein 6.6 Albumin 2.1 L Active Medications Generic Name Dose Route Start Last Admin Trade Name Freq PRN Reason Stop Dose Admin Albuterol/Ipratropium 1 amp 01/17/18 19:57 Duoneb - NEB Q4H PRN SHORTNESS OF BREATH Amino Acids 30 ml 01/18/18 08:00 01/19/18 08:46 Prosource No Carb Liquid Pkt PO 30 ml DAILY@0800 JULIO Administration Baclofen 10 mg 01/17/18 22:00 01/19/18 14:44 Lioresal - GT 10 mg TID JULIO Administration Clobazam 15 mg 01/17/18 22:00 01/19/18 09:38 Onfi - PO 15 mg BID JULIO Administration Diazepam 5 mg 01/18/18 10:00 01/19/18 09:39 Valium - GT 5 mg DAILY@1000 JULIO Administration Diazepam 10 mg 01/17/18 19:57 Diastat Rectal Gel - RC DAILY PRN seisure above 3mins, notify Heparin Sodium (Porcine) 5,000 unit 01/17/18 22:00 01/19/18 14:44 Heparin - SQ 5,000 unit TID JULIO Administration Piperacillin Sod/Tazobactam 100 mls @ 200 mls/hr 01/18/18 02:00 01/19/18 09: 38 Sod 4.5 gm/ Dextrose IVPB 200 mls/hr Q8H-IV JULIO Administration Protocol Methylprednisolone Sodium Succinate 40 mg 01/18/18 10:00 01/19/18 09:39 Solu-Medrol - IVPUSH 40 mg DAILY JULIO Administration Topiramate 100 mg 01/17/18 22:00 01/19/18 09:38 Topamax - GT 100 mg BID JULIO Administration ASSESSMENT/PLAN: 27 y/o nonverbal male at baseline from [facility] admitted for sepsis 2/2 possible aspiration PNA vs UTI #Sepsis secondary to aspiration/health care acquired pneumonia vs UTI -SIRS criteria: temperature 96.1F, HR 103, RR 26, WBC 18.1 -CXR (01/16/18): Airspace opacities noted in L lung, R upper lobe concerning for infectious process. -cont Zosyn 4.5 g-Dextrose 100 cc @ 200 cc/hr IVPB -As per ID, Dr. Felix to cont Zosyn; hx of aspiration #Acute Hypoxic Respiratory Failure - currently stable with 2L NC - CXR (01/15/18): Large pleural effusion, increased lung markings noted in L perihilar region, L lower lobe concerning for infectious process - aspiration precautions #Hypotension; 123/86. BP stable. - monitor BP closely #Seizure d/o; no seizure activity today. - cont Topiramate 100 mg GT BID - cont Valium 5 mg GT QD #Asthma exacerbation -cont Solumedrol 40 mg IV push and Duoneb 1 amp neb Q4 PRN #Anemia -Hb 9.2, Hct 28.8 -TIBC 163, Ferr 840.2 #Hypoalbuminemia -Albumin 2.1 -Likely secondary to malnutrition; tube feeds started #Paraplegia: -reposition when needed for comfort #VTE prophylaxis -Heparin 5000 units SQ TID #FEN No fluids given No electrolyte repletion; monitor BMP in AM Jevity 1.5 titrating up to 40cc/hr over 18 hours, prosource added dispo Pt transferred to floors Off isolation precautions Visit type - Emergency Visit Emergency Visit: No - New Patient This patient is new to me today: No - Critical Care Critical Care patient: Yes Total Critical Care Time (in minutes): 35 Critical Care Statement: The care of this patient involved high complexity decision making to prevent further life threatening deterioration of the patient 's condition and/or to evaluate & treat vital organ system(s) failure or risk of failure.
--- NOTE | 2018-01-19 21:25 | PN ---
Teaching Attending Note Name of Resident: Shanice Trejo ATTENDING PHYSICIAN STATEMENT I saw and evaluated the patient. I reviewed the resident's note and discussed the case with the resident. I agree with the resident's findings and plan as documented. SUBJECTIVE: Patient is comfrotable with no acute distress. OBJECTIVE: Vital Signs Temperature 97 F L 01/19/18 18:00 Pulse Rate 86 01/19/18 19:44 Respiratory Rate 18 01/19/18 19:44 Blood Pressure 106/75 01/19/18 19:44 O2 Sat by Pulse Oximetry (%) 95 01/19/18 19:44 CBCD WBC 13.4 K/mm3 (4.0-10.0) H 01/19/18 05:30 RBC 3.06 M/mm3 (4.00-5.60) L 01/19/18 05:30 Hgb 9.2 GM/dL (11.7-16.9) L 01/19/18 05:30 Hct 28.8 % (35.4-49) L 01/19/18 05:30 MCV 94.2 fl (80-96) 01/19/18 05:30 MCHC 32.0 g/dl (32.0-35.9) 01/19/18 05:30 RDW 16.6 % (11.9-15.9) H 01/19/18 05:30 Plt Count 525 K/MM3 (134-434) H 01/19/18 05:30 MPV 6.9 fl (7.5-11.1) L 01/19/18 05:30 CMP Sodium 149 mmol/L (136-145) H 01/19/18 05:30 Potassium 3.8 mmol/L (3.5-5.1) 01/19/18 05:30 Chloride 116 mmol/L (98-107) H 01/19/18 05:30 Carbon Dioxide 28 mmol/L (21-32) 01/19/18 05:30 Anion Gap 5 (8-16) L 01/19/18 05:30 BUN 29 mg/dL (7-18) H 01/19/18 05:30 Creatinine 1.3 mg/dL (0.7-1.3) 01/19/18 05:30 Creat Clearance w eGFR > 60 (>60) 01/19/18 05:30 Random Glucose 61 mg/dL (74-106) L D 01/19/18 05:30 Calcium 8.3 mg/dL (8.5-10.1) L 01/19/18 05:30 Total Bilirubin 0.2 mg/dL (0.2-1.0) 01/19/18 05:30 AST 12 U/L (15-37) L 01/19/18 05:30 ALT 18 U/L (12-78) 01/19/18 05:30 Alkaline Phosphatase 96 U/L (45-117) 01/19/18 05:30 Total Protein 6.6 g/dl (6.4-8.2) 01/19/18 05:30 Albumin 2.1 g/dl (3.4-5.0) L 01/19/18 05:30 CARDIAC ENZYMES Creatine Kinase 60 IU/L (39-308) 01/14/18 15:47 Troponin I < 0.02 ng/ml (0.00-0.05) 01/14/18 15:47 Current Medications Generic Name Dose Route Start Last Admin Trade Name Freq PRN Reason Stop Dose Admin Albuterol/Ipratropium 1 amp 01/17/18 19:57 01/19/18 20:35 Duoneb - NEB 1 amp Q4H PRN Administration SHORTNESS OF BREATH Amino Acids 30 ml 01/18/18 08:00 01/19/18 08:46 Prosource No Carb Liquid Pkt PO 30 ml DAILY@0800 JULIO Administration Baclofen 10 mg 01/17/18 22:00 01/19/18 14:44 Lioresal - GT 10 mg TID JULIO Administration Clobazam 15 mg 01/17/18 22:00 01/19/18 09:38 Onfi - PO 15 mg BID JULIO Administration Diazepam 5 mg 01/18/18 10:00 01/19/18 09:39 Valium - GT 5 mg DAILY@1000 JULIO Administration Diazepam 10 mg 01/17/18 19:57 Diastat Rectal Gel - RC DAILY PRN seisure above 3mins, fina MAHAN Heparin Sodium (Porcine) 5,000 unit 01/17/18 22:00 01/19/18 14:44 Heparin - SQ 5,000 unit TID JULIO Administration Piperacillin Sod/Tazobactam 100 mls @ 200 mls/hr 01/18/18 02:00 01/19/18 18: 01 Sod 4.5 gm/ Dextrose IVPB 200 mls/hr Q8H-IV JULIO Administration Protocol Methylprednisolone Sodium Succinate 40 mg 01/18/18 10:00 01/19/18 09:39 Solu-Medrol - IVPUSH 40 mg DAILY JULIO Administration Topiramate 100 mg 01/17/18 22:00 01/19/18 09:38 Topamax - GT 100 mg BID JULIO Administration Home Medications Medication Instructions Recorded Albuterol 0.083% Nebulizer Rani 1 amp NEB QID 01/14/18 [Ventolin 0.083% Nebulizer Soln -] Baclofen 10 mg GT TID 01/14/18 Bisacodyl Suppository [Dulcolax 10 mg RC DAILY PRN 01/14/18 Suppository -] Calcium Carbonate/Vitamin D3 1 each PO DAILY 01/14/18 [Oyster Shell Calcium-Vit D Tab] Clobazam [Onfi -] 15 mg GT BID 01/14/18 Diazepam 5 mg GT DAILY 01/14/18 Diazepam Rectal Gel [Diastat 10 mg RC PRN 01/14/18 *Rectal Gel*] Doxycycline Calcium [Vibramycin] 10 ml GT BID 01/14/18 Ferrous Sulfate 220 mg PEG BID 01/14/18 Lactulose 10 gm PEG BID 01/14/18 Loratadine 10 mg GT DAILY 01/14/18 Mometasone Furoate 17 gm NS BID 01/14/18 Polyethylene Glycol 3350 [Glycolax] 17 gm GT DAILY 01/14/18 Sennosides [Senna] 2 tab GT HS 01/14/18 Simethicone 40 mg PO BID 01/14/18 Sodium Chloride [Saline Mist] 2 spray NS QID 01/14/18 Sulfamethoxazole/Trimethoprim 20 ml GT HS 01/14/18 [Sulfatrim 800-160 mg/20 ml Ramona] Topiramate 100 mg GT BID 01/14/18 PE: per resident's note ASSESSMENT AND PLAN: Patient is a 27 y/o nonverbal male from [facility] admitted for sepsis and was found to be seizing , transferred to ICU. #s/p Sepsis with septic shock off Phenephephrine now. #HCAP vs aspiration PNA from [facility]. ID on the case, started the patient on Zosyn continue #Acute Hypoxic Respiratory Failure due to RSV/Hcap vs aspiration PNA on NC now # Acute UTI with NLF GNB on IV antibiotic as per ID will follow the organism #Hypothermia improved off Jesus Alberto huggaer now, continue to monitor temp./vitals q2h # s/p Seizure activity ,continue curernt therapy Topiramate 100 mg GT BID, Valium 5 mg GT QD #Asthma exacerbation; On Solumedrol 40 mg IV push and Duoneb 1 amp neb Q4 PRN continue #Anemia f/u iron studies #Paraplegia: reposition to avoid decubiti ulcers #Prophylaxis: Heparin 5000 units subq TID
[2018-01-20] MEDS: PIPERACILLIN/TAZOB 4.5 GM 4.5 GM in DEXTROSE 5%-WATER 100 ML IVPB SCH ×3 (01:21→17:20)
[2018-01-20] MEDS ORDERED: PIPERACILLIN/TAZOBACTAM 4.5 GM VIAL IVPB ONE ×3 (04:56→16:41)
[2018-01-20] MEDS ORDERED: DEXTROSE 5%-WATER 100 ML IVPB ONE ×3 (04:56→16:41)
[2018-01-20 06:11] LABS: BASO % 0.5 % (0-2.0); EOS % 1.1 % (0-4.5); HEMATOCRIT 30.8 % (35.4-49); HEMOGLOBIN 9.5 GM/dL (11.7-16.9); LYMPH % 23.5 % (8-40); MCH 29.3 pg (25.7-33.7); MCHC 30.9 g/dl (32.0-35.9); MEAN CELL VOLUME 94.9 fl (80-96); MONO % 6.3 % (3.8-10.2); NEUT % 68.6 % (42.8-82.8); PLATELET COUNT 571 K/MM3 (134-434); RBC 3.25 M/mm3 (4.00-5.60); WHITE BLOOD COUNT 16.8 K/mm3 (4.0-10.0)
[2018-01-20] MEDS: BACLOFEN 10 MG TABLET (FP) GT SCH ×3 (06:12→21:36)
[2018-01-20] MEDS: HEPARIN NA (PORCINE) 5,000 UNITS/ML 1ML VIAL SQ SCH ×3 (06:12→21:35)
[2018-01-20 06:41] LABS: ANION GAP 8 (8-16); BLOOD UREA NITROGEN 31 mg/dL (7-18); CALCIUM 8.3 mg/dL (8.5-10.1); CHLORIDE 113 mmol/L (98-107); CO2 27 mmol/L (21-32); CREATININE 1.2 mg/dL (0.7-1.3); GLUCOSE,RANDOM 102 mg/dL (74-106); MAGNESIUM 2.2 mg/dL (1.8-2.4); PHOSPHOROUS 4.2 mg/dL (2.5-4.9); POTASSIUM 3.8 mmol/L (3.5-5.1); SGOT/AST 13 U/L (15-37); SGPT/ALT 15 U/L (12-78); SODIUM 148 mmol/L (136-145)
[2018-01-20 06:43] LABS: ALK PHOS 100 U/L (45-117); BILIRUBIN,TOTAL 0.2 mg/dL (0.2-1.0); TOT PROT 6.4 g/dl (6.4-8.2)
[2018-01-20] MEDS: AMINO ACIDS/PROTEIN HYDROLYS 30 ML LIQUID.PKT PO SCH (08:03)
[2018-01-20] MEDS: methylPREDNISolone NA SUCC 40 MG/1 ML VIAL IVPUSH SCH (09:02)
[2018-01-20] MEDS ORDERED: PT OWN MED DRAWER 7, Y5N ONE ×3 (09:09→21:30)
[2018-01-20] MEDS: TOPIRAMATE 100 MG TABLET GT SCH ×2 (09:12→21:36)
[2018-01-20] MEDS: cloBAZam 10 MG TABLET PO SCH ×2 (09:12→21:36)
[2018-01-20] MEDS: diazePAM 5 MG TABLET GT SCH (09:13)
--- NOTE | 2018-01-20 09:19 | PN ---
Progress Note (short form) - Note Progress Note: Neurology HISTORY OF PRESENT ILLNESS: 27 y/o wheelchair quinn, nonverbal male from [facility] presents with difficulty breathing, rhonchi, and wheezing that began earlier afternoon of admssion. As per health aid at bedside, patient was given multiple nebulizer treatments which were minimally palliative at [facility]. Reported O2 saturation at [facility] was 94%. Patient was also hypothermic upon presentation at 92.3 degrees F. Admitted for sepsis management, ID following for UTI, PNA. Consulted for seizure like activity. He has h/o seizure and has been on TPM, Onfi, Valium as listed below. Had also been given loading dose of Keppra. Due to hypotension ( requiring Phenylephrine) his valium had been held in the morning. Thereafter partial seizure activity occured in evening and discussed with nurse to give valium dose as regularly scheduled. Since then has been seizure free. Spoke with ICU team and confirmed no witnessed events. If recurrence, then keppra can be added, but has not occured while admitted. Has been off bp support but still in ICU. On Abx for infection which can precipitate events. Has been stable. Active Medications Albuterol/Ipratropium (Duoneb -) 1 amp NEB Q4H PRN PRN Reason: SHORTNESS OF BREATH Last Admin: 01/19/18 20:35 Dose: 1 amp Amino Acids (Prosource No Carb Liquid Pkt) 30 ml PO DAILY@0800 [facility] Last Admin: 01/20/18 08:03 Dose: 30 ml Baclofen (Lioresal -) 10 mg GT TID [facility] Last Admin: 01/20/18 06:12 Dose: 10 mg Clobazam (Onfi -) 15 mg PO BID [facility] Last Admin: 01/20/18 09:12 Dose: 15 mg Diazepam (Valium -) 5 mg GT DAILY@1000 [facility] Last Admin: 01/20/18 09:13 Dose: 5 mg Diazepam (Diastat Rectal Gel -) 10 mg RC DAILY PRN PRN Reason: seisure above 3mins, notify Heparin Sodium (Porcine) (Heparin -) 5,000 unit SQ TID [facility] Last Admin: 01/20/18 06:12 Dose: 5,000 unit Piperacillin Sod/Tazobactam (Sod 4.5 gm/ Dextrose) 100 mls @ 200 mls/hr IVPB Q8H-IV JULIO; Protocol Last Admin: 01/20/18 09:02 Dose: 200 mls/hr Methylprednisolone Sodium Succinate (Solu-Medrol -) 40 mg IVPUSH DAILY JULIO Last Admin: 01/20/18 09:02 Dose: 40 mg Topiramate (Topamax -) 100 mg GT BID JULIO Last Admin: 01/20/18 09:12 Dose: 100 mg PHYSICAL EXAMINATION Vital Signs Period Temp Pulse Resp BP Sys/Saha Pulse Ox Last 24 Hr 96.6 F-97.5 F 82-93 16-21 100-122/54-75 94-95 GENERAL: Nonverbal, no acute distress. HEAD: normocephalic, atraumatic. EYES: Pupils equal, round and reactive to light, extraocular movements intact, sclera anicteric LUNGS: Course breath sounds and rhonchi, inspiratory and expiratory wheezes and crackles auscultated B/L HEART: Regular rate and rhythm, normal S1 and S2. No murmurs. ABDOMEN: Soft, nontender, not distended, normoactive bowel sounds, no guarding, no rebound. EXTREMITIES: 2+ radial pulses B/L. Unable to appreciate DP pulses. No peripheral edema. Neuro: Nonverbal, CN appear intact, not following commands but moves ext grossly , no abnormal movements noted CBCD WBC 16.8 K/mm3 (4.0-10.0) H 01/20/18 05:30 RBC 3.25 M/mm3 (4.00-5.60) L 01/20/18 05:30 Hgb 9.5 GM/dL (11.7-16.9) L 01/20/18 05:30 Hct 30.8 % (35.4-49) L 01/20/18 05:30 MCV 94.9 fl (80-96) 01/20/18 05:30 MCHC 30.9 g/dl (32.0-35.9) L 01/20/18 05:30 RDW 17.0 % (11.9-15.9) H 01/20/18 05:30 Plt Count 571 K/MM3 (134-434) H 01/20/18 05:30 MPV 7.0 fl (7.5-11.1) L 01/20/18 05:30 CMP Sodium 148 mmol/L (136-145) H 01/20/18 05:30 Potassium 3.8 mmol/L (3.5-5.1) 01/20/18 05:30 Chloride 113 mmol/L (98-107) H 01/20/18 05:30 Carbon Dioxide 27 mmol/L (21-32) 01/20/18 05:30 Anion Gap 8 (8-16) 01/20/18 05:30 BUN 31 mg/dL (7-18) H 01/20/18 05:30 Creatinine 1.2 mg/dL (0.7-1.3) 01/20/18 05:30 Creat Clearance w eGFR > 60 (>60) 01/20/18 05:30 Calcium 8.3 mg/dL (8.5-10.1) L 01/20/18 05:30 Total Bilirubin 0.2 mg/dL (0.2-1.0) 01/20/18 05:30 AST 13 U/L (15-37) L 01/20/18 05:30 ALT 15 U/L (12-78) 01/20/18 05:30 Alkaline Phosphatase 100 U/L (45-117) 01/20/18 05:30 Total Protein 6.4 g/dl (6.4-8.2) 01/20/18 05:30 Albumin 2.0 g/dl (3.4-5.0) L 01/20/18 05:30 ASSESSMENT/PLAN: 27 y/o wheelchair quinn, nonverbal male from [facility] presents with difficulty breathing, rhonchi, and wheezing that began earlier afternoon of admssion. As per health aid at bedside, patient was given multiple nebulizer treatments which were minimally palliative at [facility]. Reported O2 saturation at [facility] was 94%. Patient was also hypothermic upon presentation at 92.3 degrees F. Admitted for sepsis management, ID following for UTI, PNA. Consulted for seizure like activity. He has h/o seizure and has been on TPM, Onfi, Valium as listed below. Had also been given loading dose of Keppra. Due to hypotension (requiring Phenylephrine) his valium had been held in the morning. Thereafter partial seizure activity occured in evening and discussed with nurse to give valium dose as regularly scheduled. Since valium restarted, without seizure activity and stabilized. If recurs, then keppra can be added. 500mg twice daily Has not beed needed thus far Now off bp support but still in ICU. Monitor electrolytes Maintain adequate hydration Continue mgmt for infection which can precipitate events Abx per ID, on Zosyn Has been stable neurologically Discussd with ICU resident Critical care time 35 mins
--- NOTE | 2018-01-20 09:27 | PN ---
Physical Exam: SUBJECTIVE: Patient seen and examined in the ICU. resting comfortably in bed, no agitation. awaiting transfer to med/surg. OBJECTIVE: Vital Signs Period Temp Pulse Resp BP Sys/Saha Pulse Ox Last 24 Hr 96.6 F-97.5 F 82-93 16-21 100-122/54-75 94-95 GENERAL: Awake, nonverbal with severe mr, in no acute distress. HEAD: Microcephaly with no signs of trauma. EYES: Pupils equal, round and reactive to light, extraocular movements intact, sclera anicteric, conjunctiva clear. No lid lag. EARS, NOSE, THROAT: Ears normal, nares patent, oropharynx clear without exudates. Moist mucous membranes. NECK: supple without lymphadenopathy, JVD, or masses. LUNGS: 2L NC. Breath sounds course with mild wheezes throughout. No accessory muscle use. HEART: Regular rate and rhythm, normal S1 and S2 without murmur, rub or gallop. ABDOMEN: G-tube in place. Soft, nontender, not distended, normoactive bowel sounds, no guarding, no rebound, no masses. MUSCULOSKELETAL: No bony deformities or tenderness. No CVA tenderness. UPPER EXTREMITIES: 2+ pulses, warm, well-perfused. No cyanosis or edema LOWER EXTREMITIES: 2+ pulses, warm, well-perfused. No peripheral edema. NEUROLOGICAL: Nonverbal. wheelchair bound when out of bed. Unable to follow commands. PSYCHIATRIC: Cooperative. Poor eye contact. SKIN: Warm, dry, normal turgor, no rashes or lesions noted. Laboratory Results - last 24 hr 01/20/18 01/20/18 05:30 05:30 WBC 16.8 H RBC 3.25 L Hgb 9.5 L Hct 30.8 L MCV 94.9 MCH 29.3 MCHC 30.9 L RDW 17.0 H Plt Count 571 H MPV 7.0 L Absolute Neuts (auto) 11.5 Neutrophils % 68.6 Lymphocytes % 23.5 D Monocytes % 6.3 Eosinophils % 1.1 Basophils % 0.5 Nucleated RBC % 0 Sodium 148 H Potassium 3.8 Chloride 113 H Carbon Dioxide 27 Anion Gap 8 BUN 31 H Creatinine 1.2 Creat Clearance w eGFR > 60 Random Glucose 102 D Calcium 8.3 L Phosphorus 4.2 Magnesium 2.2 Total Bilirubin 0.2 AST 13 L ALT 15 Alkaline Phosphatase 100 Total Protein 6.4 Albumin 2.0 L Active Medications Generic Name Dose Route Start Last Admin Trade Name Melvinq PRN Reason Stop Dose Admin Albuterol/Ipratropium 1 amp 01/17/18 19:57 01/19/18 20:35 Duoneb - NEB 1 amp Q4H PRN Administration SHORTNESS OF BREATH Amino Acids 30 ml 01/18/18 08:00 01/20/18 08:03 Prosource No Carb Liquid Pkt PO 30 ml DAILY@0800 JULIO Administration Baclofen 10 mg 01/17/18 22:00 01/20/18 06:12 Lioresal - GT 10 mg TID JULIO Administration Clobazam 15 mg 01/17/18 22:00 01/20/18 09:12 Onfi - PO 15 mg BID JULIO Administration Diazepam 5 mg 01/18/18 10:00 01/20/18 09:13 Valium - GT 5 mg DAILY@1000 JULIO Administration Diazepam 10 mg 01/17/18 19:57 Diastat Rectal Gel - RC DAILY PRN seisure above 3mins, notify Heparin Sodium (Porcine) 5,000 unit 01/17/18 22:00 01/20/18 06:12 Heparin - SQ 5,000 unit TID JULIO Administration Piperacillin Sod/Tazobactam 100 mls @ 200 mls/hr 01/18/18 02:00 01/20/18 09: 02 Sod 4.5 gm/ Dextrose IVPB 200 mls/hr Q8H-IV JULIO Administration Protocol Methylprednisolone Sodium Succinate 40 mg 01/18/18 10:00 01/20/18 09:02 Solu-Medrol - IVPUSH 40 mg DAILY JULIO Administration Topiramate 100 mg 01/17/18 22:00 01/20/18 09:12 Topamax - GT 100 mg BID JULIO Administration ASSESSMENT/PLAN: 27 yo male admitted to the ICU for respiratory distress following a siezure and possible aspiration. Neuro -Severe MR, nonverbal, wheelchair bound -Seizure disorder, no seizures overnight or today 1) Restarted pt on home meds (Diastat 10 mg RC Daily prn, Clobazem 15 mg PO BID, Topiramate 100mg GTBID, Diazepam 5 mg GT Daily) 2) Neurology consult appreciated for seizure control recommendations - recommend continuing home meds If pt seizes again, use ativan for acute seizure and then add keppra for future prevention Neurology did not recommend CT at this time Cardio -No acute cardiac problems as per clinical assessment and chart review Respiratory -Sepsis secondary to probable aspiration pneumonia as pt has chronic history of aspiration -Transferred to ICU for SOB and decreased saturation which is currently resolved -CXR reviewed Extensive pulmonary and pleural changes remain the same -Currently saturating well on 2L NC -Hx of asthma with acute expiratory wheezes Duonebs Q4 PRN -Pt received lasix over the weekend with improvement. Consider redosing if respiratory function worsens GI -G-tube securely in place. ID -ID consulted and recommends Zosyn 4.5gm IVQ8 for gram - coverage for 1 more day -RSV positive last week no longer on droplet precautions as per ID -CXR as mentioned above, will repeat in AM Hypothermia -92.3 on admission -Currently resolved at 98 -Will continue to monitor with rectal temperature recordings FEN -Fluids: No fluids at this time -Electrolytes: No electrolyte abnormalities, will monitor BMP in AM -Nutrition: Jevity 1.5 titrating up to 40cc/hr over 18 hours, prosource added VTE prophylaxis -Heparin 5000 units SQTID Disposition -Transfer order changed from telemetry to med/surg Problem List - Problems (1) Hypothermia Code(s): T68.XXXA - HYPOTHERMIA, INITIAL ENCOUNTER Qualifiers: Encounter type: initial encounter Qualified Code(s): T68.XXXA - Hypothermia , initial encounter (2) PNA (pneumonia) Code(s): J18.9 - PNEUMONIA, UNSPECIFIED ORGANISM Qualifiers: Pneumonia type: aspiration pneumonia Aspiration pneumonia type: unspecified Laterality: unspecified laterality Lung location: unspecified part of lung Qualified Code(s): J69.0 - Pneumonitis due to inhalation of food and vomit (3) Seizure disorder Code(s): G40.909 - EPILEPSY, UNSP, NOT INTRACTABLE, WITHOUT STATUS EPILEPTICUS (4) Sepsis Code(s): A41.9 - SEPSIS, UNSPECIFIED ORGANISM Qualifiers: Sepsis type: sepsis due to unspecified organism Qualified Code(s): A41.9 - Sepsis, unspecified organism (5) Asthma Code(s): J45.909 - UNSPECIFIED ASTHMA, UNCOMPLICATED (6) Chronic pulmonary aspiration Code(s): T17.908A - UNSP FB IN RESP TRACT, PART UNSP CAUSING OTH INJURY, INIT (7) DVT prophylaxis Code(s): ATA1268 - (8) Profound mental retardation Code(s): F73 - PROFOUND INTELLECTUAL DISABILITIES Visit type - Emergency Visit Emergency Visit: Yes ED Registration Date: 01/14/18 Care time: The patient presented to the Emergency Department on the above date and was hospitalized for further evaluation of their emergent condition. - New Patient This patient is new to me today: No - Critical Care Critical Care patient: Yes Total Critical Care Time (in minutes): 35 Critical Care Statement: The care of this patient involved high complexity decision making to prevent further life threatening deterioration of the patient 's condition and/or to evaluate & treat vital organ system(s) failure or risk of failure.
--- NOTE | 2018-01-20 12:18 | PN ---
Teaching Attending Note Name of Resident: Dario Pugh ATTENDING PHYSICIAN STATEMENT I saw and evaluated the patient. I reviewed the resident's note and discussed the case with the resident. I agree with the resident's findings and plan as documented. SUBJECTIVE: Pt seen and examined in the ICU. Pt nonverbal, no fevers recorded. OBJECTIVE: Vital Signs Period Temp Pulse Resp BP Sys/Saha Pulse Ox Last 24 Hr 97 F-98.2 F 80-93 13-21 97-114/54-75 94-95 Intake & Output 01/17/18 01/18/18 01/19/18 01/20/18 23:59 23:59 23:59 23:59 Intake Total 150 1160 2420 1230 Output Total 1500 500 Balance -6733 848 9200 1230 Gen: breathing nonlabored Heart: RRR Lung: decreased breath sounds at the bases Abd: soft, nontender Ext: no edema CBC, BMP 01/20/18 05:30 01/20/18 05:30 Active Medications Albuterol/Ipratropium (Duoneb -) 1 amp NEB Q4H PRN PRN Reason: SHORTNESS OF BREATH Last Admin: 01/19/18 20:35 Dose: 1 amp Amino Acids (Prosource No Carb Liquid Pkt) 30 ml PO DAILY@0800 [facility] Last Admin: 01/20/18 08:03 Dose: 30 ml Baclofen (Lioresal -) 10 mg GT TID [facility] Last Admin: 01/20/18 06:12 Dose: 10 mg Clobazam (Onfi -) 15 mg PO BID [facility] Last Admin: 01/20/18 09:12 Dose: 15 mg Diazepam (Valium -) 5 mg GT DAILY@1000 JULIO Last Admin: 01/20/18 09:13 Dose: 5 mg Diazepam (Diastat Rectal Gel -) 10 mg RC DAILY PRN PRN Reason: seisure above 3mins, notify Heparin Sodium (Porcine) (Heparin -) 5,000 unit SQ TID [facility] Last Admin: 01/20/18 06:12 Dose: 5,000 unit Piperacillin Sod/Tazobactam (Sod 4.5 gm/ Dextrose) 100 mls @ 200 mls/hr IVPB Q8H-IV JULIO; Protocol Last Admin: 01/20/18 09:02 Dose: 200 mls/hr Methylprednisolone Sodium Succinate (Solu-Medrol -) 40 mg IVPUSH DAILY [facility] Last Admin: 01/20/18 09:02 Dose: 40 mg Topiramate (Topamax -) 100 mg GT BID [facility] Last Admin: 01/20/18 09:12 Dose: 100 mg ASSESSMENT AND PLAN: Pneumonia UTI Septic Shock improved Cerebral Palsy Mental Retardation Seizure Disorder Asthma - complete antibiotics - can d/c steroids - inhaled bronchodilators - O2 to keep Spo2 >90% - aspiration precautions - enteral feeds - DVT prophylaxis - can monitor on floor
--- NOTE | 2018-01-20 12:38 | PN ---
Physical Exam: SUBJECTIVE: Patient seen and examined at bedside. No acute events overnight. Afebrile overnight. Awaiting transfer to floor. OBJECTIVE: Vital Signs Period Temp Pulse Resp BP Sys/Saha Pulse Ox Last 24 Hr 97 F-98.2 F 80-93 13-21 97-114/54-75 94-95 GENERAL: Nonverbal, paraplegic. Awake. HEENT: NC/AT. On nasal cannula. NECK: no LAD. No JVD. LUNGS: Bilateral wheezes present in upper and lower lobes. No accessory muscle use. Currently on High flow oxygen. HEART: Regular rate and rhythm, S1, S2 without murmur, rub or gallop. ABDOMEN: Soft, nontender, nondistended, normoactive bowel sounds, no masses. EXTREMITIES: No peripheral edema noted. B/l lower extremities contracted. NEUROLOGICAL: Unable to perform. SKIN: Warm, dry, normal turgor, no rashes or lesions noted Laboratory Results - last 24 hr 01/20/18 01/20/18 05:30 05:30 WBC 16.8 H RBC 3.25 L Hgb 9.5 L Hct 30.8 L MCV 94.9 MCH 29.3 MCHC 30.9 L RDW 17.0 H Plt Count 571 H MPV 7.0 L Absolute Neuts (auto) 11.5 Neutrophils % 68.6 Lymphocytes % 23.5 D Monocytes % 6.3 Eosinophils % 1.1 Basophils % 0.5 Nucleated RBC % 0 Sodium 148 H Potassium 3.8 Chloride 113 H Carbon Dioxide 27 Anion Gap 8 BUN 31 H Creatinine 1.2 Creat Clearance w eGFR > 60 Random Glucose 102 D Calcium 8.3 L Phosphorus 4.2 Magnesium 2.2 Total Bilirubin 0.2 AST 13 L ALT 15 Alkaline Phosphatase 100 Total Protein 6.4 Albumin 2.0 L Active Medications Generic Name Dose Route Start Last Admin Trade Name Freq PRN Reason Stop Dose Admin Albuterol/Ipratropium 1 amp 01/17/18 19:57 01/19/18 20:35 Duoneb - NEB 1 amp Q4H PRN Administration SHORTNESS OF BREATH Amino Acids 30 ml 01/18/18 08:00 01/20/18 08:03 Prosource No Carb Liquid Pkt PO 30 ml DAILY@0800 JULIO Administration Baclofen 10 mg 01/17/18 22:00 01/20/18 06:12 Lioresal - GT 10 mg TID JULIO Administration Clobazam 15 mg 01/17/18 22:00 01/20/18 09:12 Onfi - PO 15 mg BID JULIO Administration Diazepam 5 mg 01/18/18 10:00 01/20/18 09:13 Valium - GT 5 mg DAILY@1000 JULIO Administration Diazepam 10 mg 01/17/18 19:57 Diastat Rectal Gel - RC DAILY PRN seisure above 3mins, notify Heparin Sodium (Porcine) 5,000 unit 01/17/18 22:00 01/20/18 06:12 Heparin - SQ 5,000 unit TID JULIO Administration Piperacillin Sod/Tazobactam 100 mls @ 200 mls/hr 01/18/18 02:00 01/20/18 09: 02 Sod 4.5 gm/ Dextrose IVPB 200 mls/hr Q8H-IV JULIO Administration Protocol Methylprednisolone Sodium Succinate 40 mg 01/18/18 10:00 01/20/18 09:02 Solu-Medrol - IVPUSH 40 mg DAILY JULIO Administration Topiramate 100 mg 01/17/18 22:00 01/20/18 09:12 Topamax - GT 100 mg BID JULIO Administration ASSESSMENT/PLAN: 27 y/o nonverbal male at baseline from [facility] admitted for sepsis 2/2 possible aspiration PNA vs UTI #Sepsis secondary to aspiration/health care acquired pneumonia vs UTI -CXR (01/16/18): Airspace opacities noted in L lung, R upper lobe concerning for infectious process. -cont Zosyn 4.5 g-Dextrose 100 cc @ 200 cc/hr IVPB -As per ID, Dr. Felix to cont Zosyn for another day #Acute Hypoxic Respiratory Failure - currently stable with 2L NC - CXR (01/15/18): Large pleural effusion, increased lung markings noted in L perihilar region, L lower lobe concerning for infectious process - aspiration precautions #Hypotension; 110/72. BP stable. - monitor BP closely #Seizure d/o; no seizure activity today. - cont Topiramate 100 mg GT BID - cont Valium 5 mg GT QD #Asthma exacerbation -cont Solumedrol 40 mg IV push and Duoneb 1 amp neb Q4 PRN #Anemia; Stable. -Hb 9.2, Hct 28.8 -TIBC 163, Ferr 840.2 #Hypoalbuminemia -Albumin 2.1 -Likely secondary to malnutrition; tube feeds started #Paraplegia: -reposition when needed for comfort #VTE prophylaxis -Heparin 5000 units SQ TID #FEN No fluids given No electrolyte repletion; monitor BMP in AM Jevity 1.5 titrating up to 40cc/hr over 18 hours, prosource added dispo Pt awaiting transfer to floors Off isolation precautions Visit type - Emergency Visit Emergency Visit: No - New Patient This patient is new to me today: No - Critical Care Critical Care patient: Yes Total Critical Care Time (in minutes): 35 Critical Care Statement: The care of this patient involved high complexity decision making to prevent further life threatening deterioration of the patient 's condition and/or to evaluate & treat vital organ system(s) failure or risk of failure.
--- NOTE | 2018-01-20 21:22 | PN ---
Teaching Attending Note Name of Resident: Shanice Trejo ATTENDING PHYSICIAN STATEMENT I saw and evaluated the patient. I reviewed the resident's note and discussed the case with the resident. I agree with the resident's findings and plan as documented. SUBJECTIVE: No new events. OBJECTIVE: Vital Signs Temperature 98.0 F 01/20/18 18:00 Pulse Rate 88 01/20/18 19:21 Respiratory Rate 16 01/20/18 19:21 Blood Pressure 106/74 01/20/18 19:21 O2 Sat by Pulse Oximetry (%) 94 L 01/20/18 19:21 CBCD WBC 16.8 K/mm3 (4.0-10.0) H 01/20/18 05:30 RBC 3.25 M/mm3 (4.00-5.60) L 01/20/18 05:30 Hgb 9.5 GM/dL (11.7-16.9) L 01/20/18 05:30 Hct 30.8 % (35.4-49) L 01/20/18 05:30 MCV 94.9 fl (80-96) 01/20/18 05:30 MCHC 30.9 g/dl (32.0-35.9) L 01/20/18 05:30 RDW 17.0 % (11.9-15.9) H 01/20/18 05:30 Plt Count 571 K/MM3 (134-434) H 01/20/18 05:30 MPV 7.0 fl (7.5-11.1) L 01/20/18 05:30 CMP Sodium 148 mmol/L (136-145) H 01/20/18 05:30 Potassium 3.8 mmol/L (3.5-5.1) 01/20/18 05:30 Chloride 113 mmol/L (98-107) H 01/20/18 05:30 Carbon Dioxide 27 mmol/L (21-32) 01/20/18 05:30 Anion Gap 8 (8-16) 01/20/18 05:30 BUN 31 mg/dL (7-18) H 01/20/18 05:30 Creatinine 1.2 mg/dL (0.7-1.3) 01/20/18 05:30 Creat Clearance w eGFR > 60 (>60) 01/20/18 05:30 Random Glucose 102 mg/dL (74-106) D 01/20/18 05:30 Calcium 8.3 mg/dL (8.5-10.1) L 01/20/18 05:30 Total Bilirubin 0.2 mg/dL (0.2-1.0) 01/20/18 05:30 AST 13 U/L (15-37) L 01/20/18 05:30 ALT 15 U/L (12-78) 01/20/18 05:30 Alkaline Phosphatase 100 U/L (45-117) 01/20/18 05:30 Total Protein 6.4 g/dl (6.4-8.2) 01/20/18 05:30 Albumin 2.0 g/dl (3.4-5.0) L 01/20/18 05:30 CARDIAC ENZYMES Creatine Kinase 60 IU/L (39-308) 01/14/18 15:47 Troponin I < 0.02 ng/ml (0.00-0.05) 01/14/18 15:47 Current Medications Generic Name Dose Route Start Last Admin Trade Name Freq PRN Reason Stop Dose Admin Albuterol/Ipratropium 1 amp 01/17/18 19:57 01/19/18 20:35 Duoneb - NEB 1 amp Q4H PRN Administration SHORTNESS OF BREATH Amino Acids 30 ml 01/18/18 08:00 01/20/18 08:03 Prosource No Carb Liquid Pkt PO 30 ml DAILY@0800 JULIO Administration Baclofen 10 mg 01/17/18 22:00 01/20/18 13:18 Lioresal - GT 10 mg TID JULIO Administration Clobazam 15 mg 01/17/18 22:00 01/20/18 09:12 Onfi - PO 15 mg BID JULIO Administration Diazepam 5 mg 01/18/18 10:00 01/20/18 09:13 Valium - GT 5 mg DAILY@1000 JULIO Administration Heparin Sodium (Porcine) 5,000 unit 01/17/18 22:00 01/20/18 13:17 Heparin - SQ 5,000 unit TID JULIO Administration Piperacillin Sod/Tazobactam 100 mls @ 200 mls/hr 01/18/18 02:00 01/20/18 17: 20 Sod 4.5 gm/ Dextrose IVPB 200 mls/hr Q8H-IV JULIO Administration Protocol Topiramate 100 mg 01/17/18 22:00 01/20/18 09:12 Topamax - GT 100 mg BID JULIO Administration Home Medications Medication Instructions Recorded Albuterol 0.083% Nebulizer Rani 1 amp NEB QID 01/14/18 [Ventolin 0.083% Nebulizer Soln -] Baclofen 10 mg GT TID 01/14/18 Bisacodyl Suppository [Dulcolax 10 mg RC DAILY PRN 01/14/18 Suppository -] Calcium Carbonate/Vitamin D3 1 each PO DAILY 01/14/18 [Oyster Shell Calcium-Vit D Tab] Clobazam [Onfi -] 15 mg GT BID 01/14/18 Diazepam 5 mg GT DAILY 01/14/18 Diazepam Rectal Gel [Diastat 10 mg RC PRN 01/14/18 *Rectal Gel*] Doxycycline Calcium [Vibramycin] 10 ml GT BID 01/14/18 Ferrous Sulfate 220 mg PEG BID 01/14/18 Lactulose 10 gm PEG BID 01/14/18 Loratadine 10 mg GT DAILY 01/14/18 Mometasone Furoate 17 gm NS BID 01/14/18 Polyethylene Glycol 3350 [Glycolax] 17 gm GT DAILY 01/14/18 Sennosides [Senna] 2 tab GT HS 01/14/18 Simethicone 40 mg PO BID 01/14/18 Sodium Chloride [Saline Mist] 2 spray NS QID 01/14/18 Sulfamethoxazole/Trimethoprim 20 ml GT HS 01/14/18 [Sulfatrim 800-160 mg/20 ml Ramona] Topiramate 100 mg GT BID 01/14/18 PE: per resident's note ASSESSMENT AND PLAN: Patient is a 27 y/o nonverbal male from [facility] admitted for sepsis and was found to be seizing , transferred to ICU. #s/p Sepsis with septic shock off Phenephephrine now. #HCAP vs aspiration PNA from [facility]. ID on the case, On Zosyn day 12/18 and discontinue afterward. #Acute Hypoxic Respiratory Failure due to RSV/Hcap vs aspiration PNA on NC now , No further RSV isolation needed as per ID # Acute UTI with NLF GNB on IV antibiotic as per ID will follow the organism #Hypothermia improved off Jesus Alberto huggaer now, continue to monitor temp./vitals q2h # s/p Seizure activity ,continue curernt therapy Topiramate 100 mg GT BID, Valium 5 mg GT QD #Asthma is stable , dc Solumedrol, Duoneb 1 amp neb Q4 PRN continue #Anemia f/u iron studies #Paraplegia: reposition to avoid decubiti ulcers #Prophylaxis: Heparin 5000 units subq TID after tomorrow can be discharged back to [place]. home, check O2 sat with and without oxygenation.
[2018-01-21] MEDS ORDERED: PIPERACILLIN/TAZOBACTAM 4.5 GM VIAL IVPB ONE ×3 (00:40→17:38)
[2018-01-21] MEDS ORDERED: DEXTROSE 5%-WATER 100 ML IVPB ONE ×3 (00:40→17:38)
[2018-01-21] MEDS: PIPERACILLIN/TAZOB 4.5 GM 4.5 GM in DEXTROSE 5%-WATER 100 ML IVPB SCH ×4 (01:06→17:58)
[2018-01-21] MEDS: BACLOFEN 10 MG TABLET (FP) GT SCH ×3 (05:11→22:10)
[2018-01-21] MEDS: HEPARIN NA (PORCINE) 5,000 UNITS/ML 1ML VIAL SQ SCH ×3 (05:11→22:10)
[2018-01-21 06:34] LABS: HEMATOCRIT 31.8 % (35.4-49); HEMOGLOBIN 10.1 GM/dL (11.7-16.9); MCH 30.1 pg (25.7-33.7); MCHC 31.9 g/dl (32.0-35.9); MEAN CELL VOLUME 94.4 fl (80-96); MEAN PLT VOLUME 6.9 fl (7.5-11.1); PLATELET COUNT 577 K/MM3 (134-434); RBC 3.37 M/mm3 (4.00-5.60); WHITE BLOOD COUNT 21.2 K/mm3 (4.0-10.0)
[2018-01-21 07:25] LABS: ANION GAP 9 (8-16); BLOOD UREA NITROGEN 27 mg/dL (7-18); CALCIUM 8.4 mg/dL (8.5-10.1); CHLORIDE 112 mmol/L (98-107); CO2 26 mmol/L (21-32); CREATININE 1.4 mg/dL (0.7-1.3); GLUCOSE,RANDOM 62 mg/dL (74-106); MAGNESIUM 2.3 mg/dL (1.8-2.4); PHOSPHOROUS 4.3 mg/dL (2.5-4.9); SODIUM 147 mmol/L (136-145)
--- NOTE | 2018-01-21 08:55 | PN ---
Physical Exam: SUBJECTIVE: Patient seen and examined in the ICU. No agitation, currently resting comfortably in bed. OBJECTIVE: Vital Signs Period Temp Pulse Resp BP Sys/Saha Pulse Ox Last 24 Hr 97.2 F-98.2 F 80-95 13-19 96-113/48-75 94-94 GENERAL: Awake, nonverbal with severe mr, in no acute distress. HEAD: Microcephaly with no signs of trauma. EYES: Pupils equal, round and reactive to light, extraocular movements intact, sclera anicteric, conjunctiva clear. No lid lag. EARS, NOSE, THROAT: Ears normal, nares patent. Moist mucous membranes. NECK: supple without lymphadenopathy, JVD, or masses. LUNGS: 2L NC. Breath sounds course with mild wheezes throughout. No accessory muscle use. HEART: Regular rate and rhythm, normal S1 and S2 without murmur, rub or gallop. ABDOMEN: G-tube in place. Soft, nontender, not distended, normoactive bowel sounds, no guarding, no rebound, no masses. MUSCULOSKELETAL: No bony deformities or tenderness. No CVA tenderness. UPPER EXTREMITIES: warm, well-perfused. No cyanosis or edema LOWER EXTREMITIES: warm, well-perfused. No peripheral edema. NEUROLOGICAL: Nonverbal. wheelchair bound when out of bed. Unable to follow commands. PSYCHIATRIC: Cooperative. Poor eye contact. SKIN: Warm, dry, normal turgor, no rashes or lesions noted. Laboratory Results - last 24 hr 01/16/18 01/20/18 01/21/18 05:30 11:02 05:30 WBC RBC Hgb Hct MCV MCH MCHC RDW Plt Count MPV Sodium 147 H Potassium 4.0 Chloride 112 H Carbon Dioxide 26 Anion Gap 9 BUN 27 H Creatinine 1.4 H Creat Clearance w eGFR > 60 POC Glucometer [id number] Random Glucose 62 L D Calcium 8.4 L Phosphorus 4.3 Magnesium 2.3 Transferrin 139 L 01/21/18 05:30 WBC 21.2 H RBC 3.37 L Hgb 10.1 L Hct 31.8 L MCV 94.4 MCH 30.1 MCHC 31.9 L RDW 17.0 H Plt Count 577 H MPV 6.9 L Sodium Potassium Chloride Carbon Dioxide Anion Gap BUN Creatinine Creat Clearance w eGFR POC Glucometer Random Glucose Calcium Phosphorus Magnesium Transferrin Active Medications Generic Name Dose Route Start Last Admin Trade Name Freq PRN Reason Stop Dose Admin Albuterol/Ipratropium 1 amp 01/17/18 19:57 01/19/18 20:35 Duoneb - NEB 1 amp Q4H PRN Administration SHORTNESS OF BREATH Amino Acids 30 ml 01/18/18 08:00 01/20/18 08:03 Prosource No Carb Liquid Pkt PO 30 ml DAILY@0800 JULIO Administration Baclofen 10 mg 01/17/18 22:00 01/21/18 05:11 Lioresal - GT 10 mg TID JULIO Administration Clobazam 15 mg 01/17/18 22:00 01/20/18 21:36 Onfi - PO 15 mg BID JULIO Administration Diazepam 5 mg 01/18/18 10:00 01/20/18 09:13 Valium - GT 5 mg DAILY@1000 JULIO Administration Heparin Sodium (Porcine) 5,000 unit 01/17/18 22:00 01/21/18 05:11 Heparin - SQ 5,000 unit TID JULIO Administration Piperacillin Sod/Tazobactam 100 mls @ 200 mls/hr 01/18/18 02:00 01/21/18 01: 06 Sod 4.5 gm/ Dextrose IVPB 200 mls/hr Q8H-IV JULIO Administration Protocol Topiramate 100 mg 01/17/18 22:00 01/20/18 21:36 Topamax - GT 100 mg BID JULIO Administration ASSESSMENT/PLAN: 27 yo male admitted to the ICU for respiratory distress following a siezure and possible aspiration. Neuro -Severe MR, nonverbal, wheelchair bound -Seizure disorder, no seizures since 01/16 1) Restarted pt on home meds (Diastat 10 mg RC Daily prn, Clobazem 15 mg PO BID, Topiramate 100mg GTBID, Diazepam 5 mg GT Daily) 2) Neurology consult appreciated for seizure control recommendations - recommend continuing home meds If pt seizes again, use ativan for acute seizure and then add keppra for future prevention Cardio -No acute cardiac problems as per clinical assessment and chart review Respiratory -Sepsis secondary to probable aspiration pneumonia as pt has chronic history of aspiration resolved -CXR reviewed Extensive pulmonary and pleural changes improving -Currently saturating well on 2L NC -Hx of asthma with acute expiratory wheezes Duonebs Q4 PRN -Can give lasix if respiratory fxn worsens GI -G-tube securely in place. ID -ID consulted and recommends Zosyn 4.5gm IVQ8 for gram - today is the last day WBC trending upward: 21 today -RSV positive last week no longer on droplet precautions as per ID -CXR slightly improved Hypothermia -92.3 on admission -Currently resolved at 97.2 -Will continue to monitor with rectal temperature recordings FEN -Fluids: 1/2 NS @42 cc/hr -Electrolytes: No electrolyte abnormalities, will monitor BMP in AM -Nutrition: Jevity 1.5 titrated up to 40cc/hr over 18 hours, prosource added VTE prophylaxis -Heparin 5000 units SQTID Disposition -Transfer to med/surg Problem List - Problems (1) Hypothermia Code(s): T68.XXXA - HYPOTHERMIA, INITIAL ENCOUNTER Qualifiers: Encounter type: initial encounter Qualified Code(s): T68.XXXA - Hypothermia , initial encounter (2) PNA (pneumonia) Code(s): J18.9 - PNEUMONIA, UNSPECIFIED ORGANISM Qualifiers: Pneumonia type: aspiration pneumonia Aspiration pneumonia type: unspecified Laterality: unspecified laterality Lung location: unspecified part of lung Qualified Code(s): J69.0 - Pneumonitis due to inhalation of food and vomit (3) Seizure disorder Code(s): G40.909 - EPILEPSY, UNSP, NOT INTRACTABLE, WITHOUT STATUS EPILEPTICUS (4) Sepsis Code(s): A41.9 - SEPSIS, UNSPECIFIED ORGANISM Qualifiers: Sepsis type: sepsis due to unspecified organism Qualified Code(s): A41.9 - Sepsis, unspecified organism (5) Asthma Code(s): J45.909 - UNSPECIFIED ASTHMA, UNCOMPLICATED (6) Chronic pulmonary aspiration Code(s): T17.908A - UNSP FB IN RESP TRACT, PART UNSP CAUSING OTH INJURY, INIT (7) DVT prophylaxis Code(s): TKI4255 - (8) Profound mental retardation Code(s): F73 - PROFOUND INTELLECTUAL DISABILITIES Visit type - Emergency Visit Emergency Visit: Yes ED Registration Date: 01/14/18 Care time: The patient presented to the Emergency Department on the above date and was hospitalized for further evaluation of their emergent condition. - New Patient This patient is new to me today: No - Critical Care Critical Care patient: Yes Total Critical Care Time (in minutes): 35 Critical Care Statement: The care of this patient involved high complexity decision making to prevent further life threatening deterioration of the patient 's condition and/or to evaluate & treat vital organ system(s) failure or risk of failure.
[2018-01-21] MEDS: cloBAZam 10 MG TABLET PO SCH ×3 (09:06→22:10)
[2018-01-21] MEDS: AMINO ACIDS/PROTEIN HYDROLYS 30 ML LIQUID.PKT PO SCH (09:06)
[2018-01-21] MEDS: TOPIRAMATE 100 MG TABLET GT SCH ×3 (09:09→22:11)
[2018-01-21] MEDS: diazePAM 5 MG TABLET GT SCH ×2 (09:09→12:30)
[2018-01-21] MEDS ORDERED: ALBUTEROL SO4 2.5/IPRATROPIUM 0.5 INH SOL 3 ML VIAL.NEB. NEB PRN (09:29)
--- NOTE | 2018-01-21 09:44 | PN ---
Progress Note (short form) - Note Progress Note: Neurology HISTORY OF PRESENT ILLNESS: 27 y/o wheelchair quinn, nonverbal male from [facility] presents with difficulty breathing, rhonchi, and wheezing that began earlier afternoon of admssion. As per health aid at bedside, patient was given multiple nebulizer treatments which were minimally palliative at [facility]. Reported O2 saturation at [facility] was 94%. Patient was also hypothermic upon presentation at 92.3 degrees F. Admitted for sepsis management, ID following for UTI, PNA. Consulted for seizure like activity. He has h/o seizure and has been on TPM, Onfi, Valium as listed below. Had also been given loading dose of Keppra. Due to hypotension ( requiring Phenylephrine) his valium had been held in the morning. Thereafter partial seizure activity occured in evening and discussed with nurse to give valium dose as regularly scheduled. Since then has been seizure free. Spoke with ICU team and confirmed no witnessed events. If recurrence, then keppra can be added, but has not occured while admitted. Has been off bp support but still in ICU. On Abx for infection which can precipitate events. Resting comfortable, no seizure events. Active Medications Albuterol/Ipratropium (Duoneb -) 1 amp NEB Q4H PRN PRN Reason: SHORTNESS OF BREATH Amino Acids (Prosource No Carb Liquid Pkt) 30 ml PO DAILY@0800 [facility] Baclofen (Lioresal -) 10 mg GT TID JULIO Clobazam (Onfi -) 15 mg PO BID JULIO Diazepam (Valium -) 5 mg GT DAILY@1000 [facility] Heparin Sodium (Porcine) (Heparin -) 5,000 unit SQ TID JULIO Piperacillin Sod/Tazobactam (Sod 4.5 gm/ Dextrose) 100 mls @ 200 mls/hr IVPB Q8H-IV JULIO; Protocol Topiramate (Topamax -) 100 mg GT BID [facility] PHYSICAL EXAMINATION Vital Signs Temperature 97.2 F L 01/21/18 06:00 Pulse Rate 90 01/21/18 08:00 Respiratory Rate 14 01/21/18 08:00 Blood Pressure 107/64 01/21/18 08:00 O2 Sat by Pulse Oximetry (%) 94 L 01/20/18 19:21 GENERAL: Nonverbal, no acute distress. HEAD: normocephalic, atraumatic. EYES: Pupils equal, round and reactive to light, extraocular movements intact, sclera anicteric LUNGS: Course breath sounds and rhonchi, inspiratory and expiratory wheezes and crackles auscultated B/L HEART: Regular rate and rhythm, normal S1 and S2. No murmurs. ABDOMEN: Soft, nontender, not distended, normoactive bowel sounds, no guarding, no rebound. EXTREMITIES: 2+ radial pulses B/L. Unable to appreciate DP pulses. No peripheral edema. Neuro: Nonverbal, CN appear intact, not following commands but moves ext grossly , no abnormal movements noted CBCD WBC 21.2 K/mm3 (4.0-10.0) H 01/21/18 05:30 RBC 3.37 M/mm3 (4.00-5.60) L 01/21/18 05:30 Hgb 10.1 GM/dL (11.7-16.9) L 01/21/18 05:30 Hct 31.8 % (35.4-49) L 01/21/18 05:30 MCV 94.4 fl (80-96) 01/21/18 05:30 MCHC 31.9 g/dl (32.0-35.9) L 01/21/18 05:30 RDW 17.0 % (11.9-15.9) H 01/21/18 05:30 Plt Count 577 K/MM3 (134-434) H 01/21/18 05:30 MPV 6.9 fl (7.5-11.1) L 01/21/18 05:30 CMP Sodium 147 mmol/L (136-145) H 01/21/18 05:30 Potassium 4.0 mmol/L (3.5-5.1) 01/21/18 05:30 Chloride 112 mmol/L (98-107) H 01/21/18 05:30 Carbon Dioxide 26 mmol/L (21-32) 01/21/18 05:30 Anion Gap 9 (8-16) 01/21/18 05:30 BUN 27 mg/dL (7-18) H 01/21/18 05:30 Creatinine 1.4 mg/dL (0.7-1.3) H 01/21/18 05:30 Creat Clearance w eGFR > 60 (>60) 01/21/18 05:30 Random Glucose 62 mg/dL (74-106) L D 01/21/18 05:30 Calcium 8.4 mg/dL (8.5-10.1) L 01/21/18 05:30 Total Bilirubin 0.2 mg/dL (0.2-1.0) 01/20/18 05:30 AST 13 U/L (15-37) L 01/20/18 05:30 ALT 15 U/L (12-78) 01/20/18 05:30 Alkaline Phosphatase 100 U/L (45-117) 01/20/18 05:30 Total Protein 6.4 g/dl (6.4-8.2) 01/20/18 05:30 Albumin 2.0 g/dl (3.4-5.0) L 01/20/18 05:30 CARDIAC ENZYMES Creatine Kinase 60 IU/L (39-308) 01/14/18 15:47 Troponin I < 0.02 ng/ml (0.00-0.05) 01/14/18 15:47 ASSESSMENT/PLAN: 27 y/o wheelchair quinn, nonverbal male from [facility] presents with difficulty breathing, rhonchi, and wheezing that began earlier afternoon of admssion. As per health aid at bedside, patient was given multiple nebulizer treatments which were minimally palliative at [facility]. Reported O2 saturation at [facility] was 94%. Patient was also hypothermic upon presentation at 92.3 degrees F. Admitted for sepsis management, ID following for UTI, PNA. Consulted for seizure like activity. He has h/o seizure and has been on TPM, Onfi, Valium as listed below. Had also been given loading dose of Keppra. Due to hypotension (requiring Phenylephrine) his valium had been held in the morning. Thereafter partial seizure activity occured in evening and discussed with nurse to give valium dose as regularly scheduled. Since valium restarted, without seizure activity and stabilized. If recurs, then keppra can be added. 500mg twice daily, has not been needed Has not beed needed thus far Now off bp support but still in ICU. Monitor electrolytes Maintain adequate hydration Continue mgmt for infection which can precipitate events Abx per ID, on Zosyn Has been stable neurologically Critical care time 35 mins
[2018-01-21] MEDS ORDERED: SODIUM CHLORIDE 1,000 ML IV SCH (10:00)
[2018-01-21] MEDS ORDERED: SODIUM CHLORIDE 0.45% 1,000 ML IV SCH (11:15)
--- NOTE | 2018-01-21 11:29 | PN ---
Teaching Attending Note Name of Resident: Dario Pugh ATTENDING PHYSICIAN STATEMENT I saw and evaluated the patient. I reviewed the resident's note and discussed the case with the resident. I agree with the resident's findings and plan as documented. SUBJECTIVE: Pt seen and examined in the ICU. No overnight events. No feveres recorded. OBJECTIVE: Vital Signs Period Temp Pulse Resp BP Sys/Saha Pulse Ox Last 24 Hr 97.2 F-98.2 F 80-95 13-19 96-113/48-75 94-94 Intake & Output 01/18/18 01/19/18 01/20/18 01/21/18 23:59 23:59 23:59 23:59 Intake Total 1160 2420 2460 1180 Output Total 500 Balance 660 2420 2460 1180 Gen: NAD, breathing nonlabored Heart: RRR Lung: scattered rhonchi Abd: soft, nontender Ext: no edema CBC, BMP 01/21/18 05:30 01/21/18 05:30 Active Medications Albuterol/Ipratropium (Duoneb -) 1 amp NEB Q4H PRN PRN Reason: SHORTNESS OF BREATH Amino Acids (Prosource No Carb Liquid Pkt) 30 ml PO DAILY@0800 JULIO Baclofen (Lioresal -) 10 mg GT TID JULIO Clobazam (Onfi -) 15 mg PO BID JULIO Diazepam (Valium -) 5 mg GT DAILY@1000 JULIO Heparin Sodium (Porcine) (Heparin -) 5,000 unit SQ TID JULIO Piperacillin Sod/Tazobactam (Sod 4.5 gm/ Dextrose) 100 mls @ 200 mls/hr IVPB Q8H-IV JULIO; Protocol Sodium Chloride (Normal Saline -) 1,000 mls @ 75 mls/hr IV ASDIR JULIO Stop: 01/21/18 23:19 Sodium Chloride (1/2 Normal Saline) 1,000 mls @ 42 mls/hr IV ASDIR JULIO Topiramate (Topamax -) 100 mg GT BID [facility] ASSESSMENT AND PLAN: Pneumonia UTI Septic Shock improved Acute Kidney Injury Cerebral Palsy Mental Retardation Seizure Disorder Asthma - complete antibiotics - monitor WBC - gentle IVF - monitor urine output, creatinine - inhaled bronchodilators - O2 to keep Spo2 >90% - aspiration precautions - enteral feeds - DVT prophylaxis - can monitor on floor
[2018-01-21] MEDS ORDERED: PT OWN MED DRAWER 7, Y5N ONE (13:06)
--- NOTE | 2018-01-21 15:56 | PN ---
Teaching Attending Note Name of Resident: Shanice Trejo ATTENDING PHYSICIAN STATEMENT I saw and evaluated the patient. I reviewed the resident's note and discussed the case with the resident. I agree with the resident's findings and plan as documented. SUBJECTIVE: No events over night . OBJECTIVE: NAD , awake , non verbal , dry cracked lips, dry tongue CV: RRr Lungs: b/l rales. ext : no edema Abd: soft, nt, ND , NL BS ASSESSMENT AND PLAN: 27 y/o male with h/o MR, scoliosis, PNA , aspiration , seizures and other medical problems who presented with SOB and wheezing. 1- Acute hypoxic resp failure, with septic shock , now resolved . due to PNA. - aspiration precautions. - last dose of zosyn this evening 2- UTI with providencia . sensitive to zosyn - completes treatment today 3- Seizure disorder with seizure activity this admission when acutely ill ., cont Onfi and topamax 4- SHONDA, hypernatremia , and tachycardia , indicate dehydration . - start IVF ( add D5 due to hypoglycemia ) - increase free water flushes to TF dispo : possible dc to [place] tomorrow
[2018-01-21] MEDS ORDERED: DEXTROSE 5%-0.45% SALINE 1,000 ML IV SCH (16:00)
--- NOTE | 2018-01-21 18:38 | PN ---
Physical Exam: SUBJECTIVE: Patient seen and examined at bedside. No acute events overnight. As per nurse, pt is comfortable. OBJECTIVE: Vital Signs Period Temp Pulse Resp BP Sys/Saha Pulse Ox Last 24 Hr 97.2 F-97.8 F 83-97 14-16 95-128/48-83 94-96 GENERAL: Nonverbal, paraplegic. Awake. Chapped lips, dry mouth. HEENT: NC/AT. on 2L NC. NECK: no LAD. No JVD. LUNGS: Bilateral wheezes present in upper and lower lobes. No accessory muscle use. Currently on High flow oxygen. HEART: Regular rate and rhythm, S1, S2 without murmur, rub or gallop. ABDOMEN: Soft, nontender, nondistended, normoactive bowel sounds, no masses. G tube in place. EXTREMITIES: No peripheral edema noted. B/l lower extremities contracted. Wheelchair bound when OOB. NEUROLOGICAL: Unable to perform. SKIN: Warm, dry, normal turgor, no rashes or lesions noted Laboratory Results - last 24 hr 01/16/18 01/20/18 01/21/18 05:30 11:02 05:30 WBC RBC Hgb Hct MCV MCH MCHC RDW Plt Count MPV Sodium 147 H Potassium 4.0 Chloride 112 H Carbon Dioxide 26 Anion Gap 9 BUN 27 H Creatinine 1.4 H Creat Clearance w eGFR > 60 POC Glucometer [id number] Random Glucose 62 L D Calcium 8.4 L Phosphorus 4.3 Magnesium 2.3 Transferrin 139 L 01/21/18 05:30 WBC 21.2 H RBC 3.37 L Hgb 10.1 L Hct 31.8 L MCV 94.4 MCH 30.1 MCHC 31.9 L RDW 17.0 H Plt Count 577 H MPV 6.9 L Sodium Potassium Chloride Carbon Dioxide Anion Gap BUN Creatinine Creat Clearance w eGFR POC Glucometer Random Glucose Calcium Phosphorus Magnesium Transferrin Active Medications Generic Name Dose Route Start Last Admin Trade Name Freq PRN Reason Stop Dose Admin Albuterol/Ipratropium 1 amp 01/21/18 09:29 Duoneb - NEB Q4H PRN SHORTNESS OF BREATH Amino Acids 30 ml 01/22/18 08:00 Prosource No Carb Liquid Pkt PO DAILY@0800 JULIO Baclofen 10 mg 01/21/18 14:00 01/21/18 13:10 Lioresal - GT 10 mg TID JULIO Administration Clobazam 15 mg 01/21/18 10:00 01/21/18 12:29 Onfi - PO Not Given BID [facility] Diazepam 5 mg 01/21/18 10:00 01/21/18 12:30 Valium - GT Not Given DAILY@1000 JULIO Heparin Sodium (Porcine) 5,000 unit 01/21/18 14:00 01/21/18 13:09 Heparin - SQ 5,000 unit TID JULIO Administration Piperacillin Sod/Tazobactam 100 mls @ 200 mls/hr 01/21/18 10:00 01/21/18 17: 58 Sod 4.5 gm/ Dextrose IVPB 200 mls/hr Q8H-IV JULIO Administration Protocol Dextrose/Sodium Chloride 1,000 mls @ 50 mls/hr 01/21/18 16:00 01/21/18 16:01 D5-1/2ns - IV 50 mls/hr ASDIR JULIO Administration Topiramate 100 mg 01/21/18 10:00 01/21/18 12:30 Topamax - GT Not Given BID [facility] ASSESSMENT/PLAN: 27M nonverbal male at baseline from [facility] w/ pmhx of chronic aspiration, pneumonia, asthma, UTI, seizure, paraplegia, MR/DD, scoliosis admitted for sepsis 2/2 aspiration pna. #Sepsis secondary to aspiration pneumonia; Pt clinically improved, afebrile. WBC 21.2, but likely due to steroids given. -cont Zosyn 4.5 g-Dextrose 100 cc @ 200 cc/hr IVPB - CXR (01/21/18): since 01/20, elevated R hemidiaphragm but lungs appear slightly better aerated w/ increased markings diminshed except at R base. #Acute Hypoxic Respiratory Failure - currently stable with 2L NC - CXR (01/15/18): Large pleural effusion, increased lung markings noted in L perihilar region, L lower lobe concerning for infectious process - aspiration precautions #Hypotension; 96/63. BP stable. - monitor BP closely #Seizure d/o; no seizure activity today. - cont Topiramate 100 mg GT BID - cont Valium 5 mg GT QD #Asthma exacerbation -cont Duoneb 1 amp neb Q4 PRN #Anemia; Stable. -Hb 10.1, Hct 31.8 -TIBC 163, Ferr 840.2 #Hypoalbuminemia -Albumin 2.1 -Likely secondary to malnutrition; cont tube feeds #Paraplegia: -reposition when needed for comfort #VTE prophylaxis -Heparin 5000 units SQ TID #FEN D5/.5NS 1000cc IV given recheck electrolytes in AM (Na, as well as Cr) Jevity 1.[address] Bae for d/c tomorrow back to [facility] Off isolation precautions Visit type - Emergency Visit Emergency Visit: No - New Patient This patient is new to me today: No - Critical Care Critical Care patient: Yes Total Critical Care Time (in minutes): 35 Critical Care Statement: The care of this patient involved high complexity decision making to prevent further life threatening deterioration of the patient 's condition and/or to evaluate & treat vital organ system(s) failure or risk of failure.
[2018-01-22] MEDS ORDERED: PIPERACILLIN/TAZOBACTAM 4.5 GM VIAL IVPB ONE (01:24)
[2018-01-22] MEDS ORDERED: DEXTROSE 5%-WATER 100 ML IVPB ONE (01:24)
[2018-01-22] MEDS: PIPERACILLIN/TAZOB 4.5 GM 4.5 GM in DEXTROSE 5%-WATER 100 ML IVPB SCH (01:40)
[2018-01-22] MEDS ORDERED: ACETAMINOPHEN 650 MG SUPP.RECT PR ONE (02:04)
[2018-01-22] MEDS: HEPARIN NA (PORCINE) 5,000 UNITS/ML 1ML VIAL SQ SCH ×3 (06:34→22:02)
[2018-01-22] MEDS: BACLOFEN 10 MG TABLET (FP) GT SCH ×3 (06:34→22:03)
[2018-01-22 08:22] LABS: BASO % 0.2 % (0-2.0); EOS % 1.3 % (0-4.5); HEMATOCRIT 31.4 % (35.4-49); LYMPH % 10.6 % (8-40); MCH 30.3 pg (25.7-33.7); MEAN CELL VOLUME 94.6 fl (80-96); MEAN PLT VOLUME 7.2 fl (7.5-11.1); MONO % 3.8 % (3.8-10.2); NEUT % 84.1 % (42.8-82.8); PLATELET COUNT 522 K/MM3 (134-434); RBC 3.32 M/mm3 (4.00-5.60); RDW 16.6 % (11.9-15.9); WHITE BLOOD COUNT 19.1 K/mm3 (4.0-10.0)
[2018-01-22] MEDS: AMINO ACIDS/PROTEIN HYDROLYS 30 ML LIQUID.PKT PO SCH (08:48)
[2018-01-22 08:57] LABS: ALK PHOS 115 U/L (45-117); ANION GAP 8 (8-16); BILIRUBIN,TOTAL 0.4 mg/dL (0.2-1.0); BLOOD UREA NITROGEN 26 mg/dL (7-18); CALCIUM 8.1 mg/dL (8.5-10.1); CHLORIDE 113 mmol/L (98-107); CO2 25 mmol/L (21-32); CREATININE 1.3 mg/dL (0.7-1.3); GLUCOSE,RANDOM 91 mg/dL (74-106); MAGNESIUM 2.2 mg/dL (1.8-2.4); PHOSPHOROUS 3.8 mg/dL (2.5-4.9); POTASSIUM 3.8 mmol/L (3.5-5.1); SGOT/AST 13 U/L (15-37); SGPT/ALT 15 U/L (12-78); SODIUM 146 mmol/L (136-145); TOT PROT 6.6 g/dl (6.4-8.2)
--- NOTE | 2018-01-22 09:09 | PN ---
Progress Note (short form) - Note Progress Note: Neurology HISTORY OF PRESENT ILLNESS: 27 y/o wheelchair quinn, nonverbal male from [facility] presents with difficulty breathing, rhonchi, and wheezing that began earlier afternoon of admssion. As per health aid at bedside, patient was given multiple nebulizer treatments which were minimally palliative at [facility]. Reported O2 saturation at [facility] was 94%. Patient was also hypothermic upon presentation at 92.3 degrees F. Admitted for sepsis management, ID following for UTI, PNA. Consulted for seizure like activity. He has h/o seizure and has been on TPM, Onfi, Valium as listed below. Had also been given loading dose of Keppra. Due to hypotension ( requiring Phenylephrine) his valium had been held in the morning. Thereafter partial seizure activity occured in evening and discussed with nurse to give valium dose as regularly scheduled. Since then has been seizure free. Spoke with ICU team and confirmed no witnessed events. If recurrence, then keppra can be added, but has not occured while admitted. Has been off bp support but still in ICU. No longer on Abx, nurse mentioned fever overnight. Resting comfortable, no seizure events. Active Medications Albuterol/Ipratropium (Duoneb -) 1 amp NEB Q4H PRN PRN Reason: SHORTNESS OF BREATH Amino Acids (Prosource No Carb Liquid Pkt) 30 ml PO DAILY@0800 [facility] Last Admin: 01/22/18 08:48 Dose: 30 ml Baclofen (Lioresal -) 10 mg GT TID [facility] Last Admin: 01/22/18 06:34 Dose: 10 mg Clobazam (Onfi -) 15 mg PO BID [facility] Last Admin: 01/21/18 22:10 Dose: 15 mg Diazepam (Valium -) 5 mg GT DAILY@1000 [facility] Last Admin: 01/21/18 12:30 Dose: Not Given Heparin Sodium (Porcine) (Heparin -) 5,000 unit SQ TID [facility] Last Admin: 01/22/18 06:34 Dose: 5,000 unit Dextrose/Sodium Chloride (D5-1/2ns -) 1,000 mls @ 50 mls/hr IV ASDIR [facility] Last Admin: 01/21/18 16:01 Dose: 50 mls/hr Topiramate (Topamax -) 100 mg GT BID [facility] Last Admin: 01/21/18 22:11 Dose: 100 mg PHYSICAL EXAMINATION Vital Signs Period Temp Pulse Resp BP Sys/Saha Pulse Ox Last 24 Hr 97.3 F-101.5 F 90-109 14-20 95-132/61-83 96-97 GENERAL: Nonverbal, no acute distress. HEAD: normocephalic, atraumatic. EYES: Pupils equal, round and reactive to light, extraocular movements intact, sclera anicteric LUNGS: Course breath sounds and rhonchi, inspiratory and expiratory wheezes and crackles auscultated B/L HEART: Regular rate and rhythm, normal S1 and S2. No murmurs. ABDOMEN: Soft, nontender, not distended, normoactive bowel sounds, no guarding, no rebound. EXTREMITIES: 2+ radial pulses B/L. Unable to appreciate DP pulses. No peripheral edema. Neuro: Nonverbal, CN appear intact, not following commands but moves ext grossly , no abnormal movements noted CBCD WBC 19.1 K/mm3 (4.0-10.0) H 01/22/18 07:00 RBC 3.32 M/mm3 (4.00-5.60) L 01/22/18 07:00 Hgb 10.0 GM/dL (11.7-16.9) L 01/22/18 07:00 Hct 31.4 % (35.4-49) L 01/22/18 07:00 MCV 94.6 fl (80-96) 01/22/18 07:00 MCHC 32.0 g/dl (32.0-35.9) 01/22/18 07:00 RDW 16.6 % (11.9-15.9) H 01/22/18 07:00 Plt Count 522 K/MM3 (134-434) H 01/22/18 07:00 MPV 7.2 fl (7.5-11.1) L 01/22/18 07:00 CMP Sodium 146 mmol/L (136-145) H 01/22/18 07:00 Potassium 3.8 mmol/L (3.5-5.1) 01/22/18 07:00 Chloride 113 mmol/L (98-107) H 01/22/18 07:00 Carbon Dioxide 25 mmol/L (21-32) 01/22/18 07:00 Anion Gap 8 (8-16) 01/22/18 07:00 BUN 26 mg/dL (7-18) H 01/22/18 07:00 Creatinine 1.3 mg/dL (0.7-1.3) 01/22/18 07:00 Creat Clearance w eGFR > 60 (>60) 01/22/18 07:00 Random Glucose 91 mg/dL (74-106) D 01/22/18 07:00 Calcium 8.1 mg/dL (8.5-10.1) L 01/22/18 07:00 Total Bilirubin 0.4 mg/dL (0.2-1.0) 01/22/18 07:00 AST 13 U/L (15-37) L 01/22/18 07:00 ALT 15 U/L (12-78) 01/22/18 07:00 Alkaline Phosphatase 115 U/L (45-117) D 01/22/18 07:00 Total Protein 6.6 g/dl (6.4-8.2) 01/22/18 07:00 Albumin 2.0 g/dl (3.4-5.0) L 01/22/18 07:00 CARDIAC ENZYMES Creatine Kinase 60 IU/L (39-308) 01/14/18 15:47 Troponin I < 0.02 ng/ml (0.00-0.05) 01/14/18 15:47 ASSESSMENT/PLAN: 27 y/o wheelchair quinn, nonverbal male from [facility] presents with difficulty breathing, rhonchi, and wheezing that began earlier afternoon of admssion. As per health aid at bedside, patient was given multiple nebulizer treatments which were minimally palliative at [facility]. Reported O2 saturation at [facility] was 94%. Patient was also hypothermic upon presentation at 92.3 degrees F. Admitted for sepsis management, ID following for UTI, PNA. Consulted for seizure like activity. He has h/o seizure and has been on TPM, Onfi, Valium as listed below. Had also been given loading dose of Keppra. Due to hypotension ( requiring Phenylephrine) his valium had been held in the morning. Thereafter partial seizure activity occured in evening and discussed with nurse to give valium dose as regularly scheduled. Since valium restarted, without seizure activity and stabilized. If recurs, then keppra can be added. 500mg twice daily, has not been needed Downgraded to floor, no longer in ICU Fever overnight, off Abx at this time Monitor electrolytes Maintain adequate hydration Continue mgmt for infection which can precipitate events Has been stable neurologically
[2018-01-22] MEDS ORDERED: PT OWN MED DRAWER 7, Y5N ONE ×2 (09:54→10:08)
[2018-01-22] MEDS: diazePAM 5 MG TABLET GT SCH (09:57)
[2018-01-22] MEDS: TOPIRAMATE 100 MG TABLET GT SCH ×2 (09:57→22:03)
[2018-01-22] MEDS: cloBAZam 10 MG TABLET PO SCH ×2 (10:30→22:03)
--- NOTE | 2018-01-22 11:16 | PN ---
Progress Note (short form) - Note Progress Note: No acute distress on NC O2. Low grade temp. CXR: Increased RLL atelectasis. Intake & Output 01/19/18 01/20/18 01/21/18 01/22/18 23:59 23:59 23:59 23:59 Intake Total 2420 2460 1971 1175 Balance 2420 2460 1971 1175 Last Vital Signs Temp Pulse Resp BP Pulse Ox 100.2 F H 107 H 20 132/66 97 01/22/18 06:00 01/22/18 06:00 01/22/18 06:00 01/22/18 06:00 01/21/18 21:00 Active Medications Albuterol/Ipratropium (Duoneb -) 1 amp NEB Q4H PRN PRN Reason: SHORTNESS OF BREATH Amino Acids (Prosource No Carb Liquid Pkt) 30 ml PO DAILY@0800 [facility] Last Admin: 01/22/18 08:48 Dose: 30 ml Baclofen (Lioresal -) 10 mg GT TID [facility] Last Admin: 01/22/18 06:34 Dose: 10 mg Clobazam (Onfi -) 15 mg PO BID [facility] Last Admin: 01/22/18 10:30 Dose: 15 mg Diazepam (Valium -) 5 mg GT DAILY@1000 [facility] Last Admin: 01/22/18 09:57 Dose: 5 mg Heparin Sodium (Porcine) (Heparin -) 5,000 unit SQ TID [facility] Last Admin: 01/22/18 06:34 Dose: 5,000 unit Topiramate (Topamax -) 100 mg GT BID [facility] Last Admin: 01/22/18 09:57 Dose: 100 mg Gen: NAD, breathing nonlabored Heart: RRR Lung: scattered rhonchi Abd: soft, nontender Ext: no edema Laboratory Results - last 24 hr 01/22/18 01/22/18 07:00 07:00 WBC 19.1 H RBC 3.32 L Hgb 10.0 L Hct 31.4 L MCV 94.6 MCH 30.3 MCHC 32.0 RDW 16.6 H Plt Count 522 H MPV 7.2 L Absolute Neuts (auto) 16.1 Neutrophils % 84.1 H D Lymphocytes % 10.6 D Monocytes % 3.8 Eosinophils % 1.3 Basophils % 0.2 Nucleated RBC % 0 Sodium 146 H Potassium 3.8 Chloride 113 H Carbon Dioxide 25 Anion Gap 8 BUN 26 H Creatinine 1.3 Creat Clearance w eGFR > 60 Random Glucose 91 D Calcium 8.1 L Phosphorus 3.8 Magnesium 2.2 Total Bilirubin 0.4 AST 13 L ALT 15 Alkaline Phosphatase 115 D Total Protein 6.6 Albumin 2.0 L ASSESSMENT AND PLAN: Pneumonia UTI Septic Shock improved Acute Kidney Injury Cerebral Palsy Mental Retardation Seizure Disorder Asthma - Would try to maintain OOB to his motorized chair most of the day - completed antibiotics - inhaled bronchodilators - O2 to keep Spo2 >90% - aspiration precautions - enteral feeds - DVT prophylaxis - D/C Planning Dr Brito
[2018-01-22 13:17] LABS: PLATELET ESTIMATE SLT INCREASE
[2018-01-22 13:18] LABS: SMUDGE CELLS FEW
--- NOTE | 2018-01-22 13:36 | PN ---
Physical Exam: SUBJECTIVE: Patient seen and examined. As per nurse, febrile at 101.5, pt given Tylenol, temp decreased to 100.2. No other acute events overnight. Pt has BM, nonwatery, nonbloody. OBJECTIVE: Vital Signs Period Temp Pulse Resp BP Sys/Saha Pulse Ox Last 24 Hr 97.3 F-101.5 F 97-109 14-20 107-132/59-76 96-98 GENERAL: Nonverbal, paraplegic. Moist mucus membranes. HEENT: NC/AT. on 2L NC. NECK: no LAD. No JVD. LUNGS: Bilateral wheezes present in upper and lower lobes. No accessory muscle use. Currently on High flow oxygen. HEART: Regular rate and rhythm, S1, S2 without murmur, rub or gallop. ABDOMEN: Soft, nontender, nondistended, normoactive bowel sounds, no masses. G tube in place. EXTREMITIES: No peripheral edema noted. B/l lower extremities contracted. NEUROLOGICAL: Unable to perform. SKIN: Warm, dry, normal turgor, no rashes or lesions noted Laboratory Results - last 24 hr 01/22/18 01/22/18 07:00 07:00 WBC 19.1 H RBC 3.32 L Hgb 10.0 L Hct 31.4 L MCV 94.6 MCH 30.3 MCHC 32.0 RDW 16.6 H Plt Count 522 H MPV 7.2 L Absolute Neuts (auto) 16.1 Total Counted 100 Neutrophils % 84.1 H D Neutrophils % (Manual) 82.0 Lymphocytes % 10.6 D Lymphocytes % (Manual) 16.0 D Monocytes % 3.8 Monocytes % (Manual) 1 L Eosinophils % 1.3 Eosinophils % (Manual) 1.0 Basophils % 0.2 Nucleated RBC % 0 Smudge Cells Few Platelet Estimate Slt increase Sodium 146 H Potassium 3.8 Chloride 113 H Carbon Dioxide 25 Anion Gap 8 BUN 26 H Creatinine 1.3 Creat Clearance w eGFR > 60 Random Glucose 91 D Calcium 8.1 L Phosphorus 3.8 Magnesium 2.2 Total Bilirubin 0.4 AST 13 L ALT 15 Alkaline Phosphatase 115 D Total Protein 6.6 Albumin 2.0 L Active Medications Generic Name Dose Route Start Last Admin Trade Name Freq PRN Reason Stop Dose Admin Acetaminophen 650 mg 01/22/18 11:46 Tylenol Oral Solution - GT Q6H PRN FEVER Albuterol/Ipratropium 1 amp 01/21/18 09:29 Duoneb - NEB Q4H PRN SHORTNESS OF BREATH Amino Acids 30 ml 01/22/18 08:00 01/22/18 08:48 Prosource No Carb Liquid Pkt PO 30 ml DAILY@0800 JULIO Administration Baclofen 10 mg 01/21/18 14:00 01/22/18 06:34 Lioresal - GT 10 mg TID JULIO Administration Clobazam 15 mg 01/21/18 10:00 01/22/18 10:30 Onfi - PO 15 mg BID JULIO Administration Diazepam 5 mg 01/21/18 10:00 01/22/18 09:57 Valium - GT 5 mg DAILY@1000 JULIO Administration Heparin Sodium (Porcine) 5,000 unit 01/21/18 14:00 01/22/18 06:34 Heparin - SQ 5,000 unit TID JULIO Administration Sodium Chloride 1,000 mls @ 100 mls/hr 01/22/18 12:45 1/2 Normal Saline IV ASDIR JULIO Topiramate 100 mg 01/21/18 10:00 01/22/18 09:57 Topamax - GT 100 mg BID JULIO Administration ASSESSMENT/PLAN: 27M nonverbal male at baseline from [facility] w/ pmhx of chronic aspiration, pneumonia, asthma, UTI, seizure, paraplegia, MR/DD, scoliosis admitted for sepsis 2/2 aspiration pna. #Sepsis secondary to aspiration pneumonia; Tmax 101.5 overnight. WBC 19.1. - Per ID: D/C'd Zosyn 4.5 g-Dextrose 100 cc @ 200 cc/hr IVPB; monitor pt's temp to see if he spikes another fever, then will re-evaluate reason for infection and decide which abx to use if necessary - f/u duplex u/s r/o DVT as cause of fever - CXR (01/22/18): Progressive congestive changes w/ persistently elevated R carla- diaphgram + some atelectatic changes #Acute Hypoxic Respiratory Failure - currently stable with 2L NC - aspiration precautions #Hypotension; . BP 107/59. stable. - monitor BP closely #Seizure d/o; no seizure activity today. - cont Topiramate 100 mg GT BID - cont Valium 5 mg GT QD #Asthma exacerbation -cont Duoneb 1 amp neb Q4 PRN #Anemia; Stable. -Hb 10.0, Hct 31.4 -TIBC 163, Ferr 840.2 #Paraplegia: -reposition when needed for comfort #VTE prophylaxis -Heparin 5000 units SQ TID #FEN .5NS @ 100cc/hr recheck electrolytes in AM (Na, as well as Cr) [facility] upon d/c Off isolation precautions Visit type - Emergency Visit Emergency Visit: No - New Patient This patient is new to me today: No - Critical Care Critical Care patient: No
[2018-01-22] MEDS: SODIUM CHLORIDE 0.45% 1,000 ML IV SCH (14:19)
--- NOTE | 2018-01-22 16:09 | PN ---
Teaching Attending Note Name of Resident: Shanice Trejo ATTENDING PHYSICIAN STATEMENT I saw and evaluated the patient. I reviewed the resident's note and discussed the case with the resident. I agree with the resident's findings and plan as documented. SUBJECTIVE: No events but for fevers OBJECTIVE: NAD , awake , non verbal , MMM today CV: RRR Lungs: b/l rales at bases Ext: no edema Abd: soft, nt, ND , NL BS ASSESSMENT AND PLAN: 27 y/o male with h/o MR, scoliosis, PNA , aspiration , seizures and other medical problems who presented with SOB and wheezing. 1- Acute hypoxic resp failure, with septic shock , now shock resolved but still has fever - off zosyn - check US t o r/o DVT as non infectious cause. - check c diff - if cont to spike , will repeat cx 2- UTI with providencia . finished treatment 3- Seizure disorder : cont Onfi and topamax 4- SHONDA, improved but still has signs of dehydration. cont IVF and follow Na level - cont increased free water flushes to TF Dispo: Hold dc due to fever
[2018-01-22] MEDS: ACETAMINOPHEN 650 MG/20.3 ML ORAL SOLUTION (CUPS) GT PRN (16:14)
[2018-01-23] MEDS: SODIUM CHLORIDE 0.45% 1,000 ML IV SCH ×3 (01:42→22:49)
[2018-01-23] MEDS: ACETAMINOPHEN 650 MG/20.3 ML ORAL SOLUTION (CUPS) GT PRN (01:46)
[2018-01-23] MEDS: BACLOFEN 10 MG TABLET (FP) GT SCH ×3 (06:58→22:49)
[2018-01-23] MEDS: HEPARIN NA (PORCINE) 5,000 UNITS/ML 1ML VIAL SQ SCH ×3 (06:58→22:49)
[2018-01-23 08:02] LABS: BASO % 0.2 % (0-2.0); EOS % 1.9 % (0-4.5); HEMATOCRIT 27.8 % (35.4-49); HEMOGLOBIN 8.8 GM/dL (11.7-16.9); LYMPH % 14.6 % (8-40); MCH 30.3 pg (25.7-33.7); MCHC 31.9 g/dl (32.0-35.9); MEAN CELL VOLUME 95.2 fl (80-96); MEAN PLT VOLUME 7.4 fl (7.5-11.1); MONO % 5.2 % (3.8-10.2); NEUT % 78.1 % (42.8-82.8); PLATELET COUNT 474 K/MM3 (134-434); RBC 2.92 M/mm3 (4.00-5.60); RDW 17.4 % (11.9-15.9); WHITE BLOOD COUNT 16.2 K/mm3 (4.0-10.0)
[2018-01-23 08:16] LABS: CHLORIDE 111 mmol/L (98-107); SODIUM 142 mmol/L (136-145)
[2018-01-23 08:28] LABS: ALBUMIN 1.8 g/dl (3.4-5.0); ALK PHOS 114 U/L (45-117); ANION GAP 8 (8-16); BILIRUBIN,TOTAL 0.1 mg/dL (0.2-1.0); BLOOD UREA NITROGEN 25 mg/dL (7-18); CALCIUM 8.3 mg/dL (8.5-10.1); CO2 23 mmol/L (21-32); GLUCOSE,RANDOM 77 mg/dL (74-106); SGOT/AST 16 U/L (15-37); SGPT/ALT 15 U/L (12-78); TOT PROT 6.3 g/dl (6.4-8.2)
--- NOTE | 2018-01-23 09:13 | PN ---
Progress Note (short form) - Note Progress Note: Neurology HISTORY OF PRESENT ILLNESS: 27 y/o wheelchair quinn, nonverbal male from [facility] presents with difficulty breathing, rhonchi, and wheezing that began earlier afternoon of admssion. As per health aid at bedside, patient was given multiple nebulizer treatments which were minimally palliative at [facility]. Reported O2 saturation at [facility] was 94%. Patient was also hypothermic upon presentation at 92.3 degrees F. Admitted for sepsis management, ID following for UTI, PNA. Consulted for seizure like activity. He has h/o seizure and has been on TPM, Onfi, Valium as listed below. Had also been given loading dose of Keppra. Due to hypotension ( requiring Phenylephrine) his valium had been held in the morning. Thereafter partial seizure activity occured in evening and discussed with nurse to give valium dose as regularly scheduled. Since then has been seizure free. Spoke with ICU team and confirmed no witnessed events. If recurrence, then keppra can be added, but has not occured while admitted. Has been off bp support, no longer on Abx, having fevers. Resting comfortable, no seizure events. Confirmed with nurse no abnormal movements witnessed. Active Medications Acetaminophen (Tylenol Oral Solution -) 650 mg GT Q6H PRN PRN Reason: FEVER Last Admin: 01/23/18 01:46 Dose: 650 mg Albuterol/Ipratropium (Duoneb -) 1 amp NEB Q4H PRN PRN Reason: SHORTNESS OF BREATH Amino Acids (Prosource No Carb Liquid Pkt) 30 ml PO DAILY@0800 [facility] Last Admin: 01/22/18 08:48 Dose: 30 ml Baclofen (Lioresal -) 10 mg GT TID [facility] Last Admin: 01/23/18 06:58 Dose: 10 mg Clobazam (Onfi -) 15 mg PO BID [facility] Last Admin: 01/22/18 22:03 Dose: 15 mg Diazepam (Valium -) 5 mg GT DAILY@1000 [facility] Last Admin: 01/22/18 09:57 Dose: 5 mg Heparin Sodium (Porcine) (Heparin -) 5,000 unit SQ TID [facility] Last Admin: 01/23/18 06:58 Dose: 5,000 unit Sodium Chloride (1/2 Normal Saline) 1,000 mls @ 100 mls/hr IV ASDIR [facility] Last Admin: 01/23/18 01:42 Dose: 100 mls/hr Topiramate (Topamax -) 100 mg GT BID [facility] Last Admin: 01/22/18 22:03 Dose: 100 mg PHYSICAL EXAMINATION Vital Signs Temperature 98.0 F 01/23/18 06:00 Pulse Rate 85 01/23/18 06:00 Respiratory Rate 20 01/23/18 06:00 Blood Pressure 96/62 01/23/18 06:00 O2 Sat by Pulse Oximetry (%) 99 01/22/18 21:00 GENERAL: Nonverbal, no acute distress. HEAD: normocephalic, atraumatic. EYES: Pupils equal, round and reactive to light, extraocular movements intact, sclera anicteric LUNGS: Course breath sounds and rhonchi, inspiratory and expiratory wheezes and crackles auscultated B/L HEART: Regular rate and rhythm, normal S1 and S2. No murmurs. ABDOMEN: Soft, nontender, not distended, normoactive bowel sounds, no guarding, no rebound. EXTREMITIES: 2+ radial pulses B/L. Unable to appreciate DP pulses. No peripheral edema. Neuro: Nonverbal, CN appear intact, not following commands but moves ext grossly , no abnormal movements noted CBCD WBC 16.2 K/mm3 (4.0-10.0) H 01/23/18 06:30 RBC 2.92 M/mm3 (4.00-5.60) L 01/23/18 06:30 Hgb 8.8 GM/dL (11.7-16.9) L 01/23/18 06:30 Hct 27.8 % (35.4-49) L 01/23/18 06:30 MCV 95.2 fl (80-96) 01/23/18 06:30 MCHC 31.9 g/dl (32.0-35.9) L 01/23/18 06:30 RDW 17.4 % (11.9-15.9) H 01/23/18 06:30 Plt Count 474 K/MM3 (134-434) H 01/23/18 06:30 MPV 7.4 fl (7.5-11.1) L 01/23/18 06:30 CMP Sodium 142 mmol/L (136-145) 01/23/18 06:30 Potassium 4.0 mmol/L (3.5-5.1) 01/23/18 06:30 Chloride 111 mmol/L (98-107) H 01/23/18 06:30 Carbon Dioxide 23 mmol/L (21-32) 01/23/18 06:30 Anion Gap 8 (8-16) 01/23/18 06:30 BUN 25 mg/dL (7-18) H 01/23/18 06:30 Creatinine 1.0 mg/dL (0.7-1.3) 01/23/18 06:30 Creat Clearance w eGFR > 60 (>60) 01/23/18 06:30 Calcium 8.3 mg/dL (8.5-10.1) L 01/23/18 06:30 Total Bilirubin 0.1 mg/dL (0.2-1.0) L 01/23/18 06:30 AST 16 U/L (15-37) D 01/23/18 06:30 ALT 15 U/L (12-78) 01/23/18 06:30 Alkaline Phosphatase 114 U/L (45-117) 01/23/18 06:30 Total Protein 6.3 g/dl (6.4-8.2) L 01/23/18 06:30 Albumin 1.8 g/dl (3.4-5.0) L 01/23/18 06:30 ASSESSMENT/PLAN: 27 y/o wheelchair quinn, nonverbal male from [facility] presents with difficulty breathing, rhonchi, and wheezing that began earlier afternoon of admssion. As per health aid at bedside, patient was given multiple nebulizer treatments which were minimally palliative at [facility]. Reported O2 saturation at [facility] was 94%. Patient was also hypothermic upon presentation at 92.3 degrees F. Admitted for sepsis management, ID following for UTI, PNA. Consulted for seizure like activity. He has h/o seizure and has been on TPM, Onfi, Valium as listed below. Had also been given loading dose of Keppra. Due to hypotension ( requiring Phenylephrine) his valium had been held in the morning. Thereafter partial seizure activity occured in evening and discussed with nurse to give valium dose as regularly scheduled. Since valium restarted, without seizure activity and stabilized. If recurs, then keppra can be added. 500mg twice daily, has not been needed Downgraded to floor, no longer in ICU Fevers occuring, off Abx Monitor electrolytes Maintain adequate hydration Continue mgmt for infection which can precipitate events Has been stable neurologically, can continue current regiment of seizure medication if discharged over weekend
[2018-01-23] MEDS ORDERED: PT OWN MED DRAWER 7, Y5N ONE ×2 (09:48→22:50)
[2018-01-23] MEDS: diazePAM 5 MG TABLET GT SCH (10:01)
[2018-01-23] MEDS: TOPIRAMATE 100 MG TABLET GT SCH ×2 (10:01→22:51)
[2018-01-23] MEDS: cloBAZam 10 MG TABLET PO SCH ×2 (10:01→22:47)
[2018-01-23] MEDS: AMINO ACIDS/PROTEIN HYDROLYS 30 ML LIQUID.PKT PO SCH (10:01)
--- NOTE | 2018-01-23 11:31 | PN ---
Progress Note (short form) - Note Progress Note: PULMONARY tmax 100.3 early am afebrile now Gen: NAD, breathing nonlabored Heart: RRR Lung: scattered rhonchi minimal Abd: soft, nontender Ext: no edema labs/meds/notes/images/micro noted C.Diff negative/vascular study negative for DVT ASSESSMENT AND PLAN: Pneumonia UTI Septic Shock improved Acute Kidney Injury Cerebral Palsy Mental Retardation Seizure Disorder Asthma - monitor temps - completed antibiotics - inhaled bronchodilators - O2 to keep Spo2 >90% - aspiration precautions - enteral feeds - DVT prophylaxis - D/C Planning Dexter KEEN MD
[2018-01-23 16:22] LABS: HEMATOCRIT 29.8 % (35.4-49); HEMOGLOBIN 9.4 GM/dL (11.7-16.9); MCH 29.8 pg (25.7-33.7); MCHC 31.4 g/dl (32.0-35.9); MEAN CELL VOLUME 94.8 fl (80-96); MEAN PLT VOLUME 7.9 fl (7.5-11.1); PLATELET COUNT 513 K/MM3 (134-434); RBC 3.14 M/mm3 (4.00-5.60); RDW 17.3 % (11.9-15.9); WHITE BLOOD COUNT 15.9 K/mm3 (4.0-10.0)
--- NOTE | 2018-01-23 18:55 | PN ---
Physical Exam: SUBJECTIVE: Patient seen and examined at bedside. Febrile at 100.3 overnight, Tylenol given, temp down to 98.6 today. As per nurse, +black stools. OBJECTIVE: Vital Signs Period Temp Pulse Resp BP Sys/Saha Pulse Ox Last 24 Hr 97.6 F-100.3 F 85-109 20-22 96-136/56-75 98-99 GENERAL: Nonverbal, paraplegic. Moist mucus membranes. HEENT: NC/AT. on 2L NC. NECK: no LAD. No JVD. LUNGS: Bilateral wheezes present in upper and lower lobes. No accessory muscle use. Currently on High flow oxygen. HEART: Regular rate and rhythm, S1, S2 without murmur, rub or gallop. ABDOMEN: Soft, nontender, nondistended, normoactive bowel sounds, no masses. G tube in place. EXTREMITIES: No peripheral edema noted. B/l lower extremities contracted. NEUROLOGICAL: Unable to perform. SKIN: Warm, dry, normal turgor, no rashes or lesions noted Laboratory Results - last 24 hr 01/23/18 01/23/18 01/23/18 06:30 06:30 15:00 WBC 16.2 H 15.9 H RBC 2.92 L 3.14 L Hgb 8.8 L 9.4 L Hct 27.8 L 29.8 L MCV 95.2 94.8 MCH 30.3 29.8 MCHC 31.9 L 31.4 L RDW 17.4 H 17.3 H Plt Count 474 H 513 H MPV 7.4 L 7.9 Absolute Neuts (auto) 12.6 Neutrophils % 78.1 Lymphocytes % 14.6 D Monocytes % 5.2 Eosinophils % 1.9 Basophils % 0.2 Nucleated RBC % 0 Sodium 142 Potassium 4.0 Chloride 111 H Carbon Dioxide 23 Anion Gap 8 BUN 25 H Creatinine 1.0 Creat Clearance w eGFR > 60 Random Glucose 77 Calcium 8.3 L Total Bilirubin 0.1 L AST 16 D ALT 15 Alkaline Phosphatase 114 Total Protein 6.3 L Albumin 1.8 L Active Medications Generic Name Dose Route Start Last Admin Trade Name Freq PRN Reason Stop Dose Admin Acetaminophen 650 mg 01/22/18 11:46 01/23/18 01:46 Tylenol Oral Solution - GT 650 mg Q6H PRN Administration FEVER Albuterol/Ipratropium 1 amp 01/21/18 09:29 Duoneb - NEB Q4H PRN SHORTNESS OF BREATH Amino Acids 30 ml 01/22/18 08:00 01/23/18 10:01 Prosource No Carb Liquid Pkt PO 30 ml DAILY@0800 JULIO Administration Baclofen 10 mg 01/21/18 14:00 01/23/18 14:20 Lioresal - GT 10 mg TID JULIO Administration Clobazam 15 mg 01/21/18 10:00 01/23/18 10:01 Onfi - PO 15 mg BID JULIO Administration Diazepam 5 mg 01/21/18 10:00 01/23/18 10:01 Valium - GT 5 mg DAILY@1000 JULIO Administration Heparin Sodium (Porcine) 5,000 unit 01/21/18 14:00 01/23/18 14:20 Heparin - SQ 5,000 unit TID JULIO Administration Sodium Chloride 1,000 mls @ 100 mls/hr 01/22/18 12:45 01/23/18 12:22 1/2 Normal Saline IV 100 mls/hr ASDIR JULIO Administration Topiramate 100 mg 01/21/18 10:00 01/23/18 10:01 Topamax - GT 100 mg BID JULIO Administration ASSESSMENT/PLAN: 27M nonverbal male at baseline from [facility] [place] w/ pmhx of chronic aspiration, pneumonia, asthma, UTI, seizure, paraplegia, MR/DD, scoliosis admitted for sepsis 2/2 aspiration pna. #Sepsis secondary to aspiration pneumonia; Tmax 100.3 overnight. WBC trending down from 19.1 to 16.2 - No longer on abx; monitor for fever - LE duplex neg for DVT; DVT ruled out as cause of fever - CXR (01/22/18): Progressive congestive changes w/ persistently elevated R carla- diaphgram + some atelectatic changes #Acute Hypoxic Respiratory Failure - currently stable with 2L NC - aspiration precautions #Hypotension; . BP 107/59. stable. - monitor BP closely #Seizure d/o; no seizure activity today. - cont Topiramate 100 mg GT BID - cont Valium 5 mg GT QD #Asthma exacerbation -cont Duoneb 1 amp neb Q4 PRN #Anemia; Stable. -FOBT today was negative; Hgb 8.8 this morning, rechecked, now 9.4. -TIBC 163, Ferr 840.2 -continue to monitor CBC #Paraplegia: -reposition when needed for comfort #VTE prophylaxis -Heparin 5000 units SQ TID #FEN .5NS @ 100cc/hr recheck electrolytes in AM Jevity 1.5 lyno [facility] upon d/c Off isolation precautions Visit type - Emergency Visit Emergency Visit: No - New Patient This patient is new to me today: No - Critical Care Critical Care patient: No
--- NOTE | 2018-01-23 19:49 | PN ---
Teaching Attending Note Name of Resident: Shanice Trejo ATTENDING PHYSICIAN STATEMENT I saw and evaluated the patient. I reviewed the resident's note and discussed the case with the resident. I agree with the resident's findings and plan as documented. SUBJECTIVE: No events. last fever 2 am last night OBJECTIVE: NAD , awake , non verbal , MMM today CV: RRR Lungs: b/l rales at bases improved Ext: no edema Abd: soft, nt, ND , NL BS ASSESSMENT AND PLAN: 27 y/o male with h/o MR, scoliosis, PNA , aspiration , seizures and other medical problems who presented with SOB and wheezing. 1- Acute hypoxic resp failure, with septic shock , now shock resolved but still has fever - off zosyn , fever improved - no DVT, c diff neg - if cont to spike , will repeat cx 2- UTI with providencia . finished treatment 3- Seizure disorder : cont Onfi and topamax 4- SHONDA " cont IVF and follow Na level - cont increased free water flushes to TF Dispo: possible dc tomorrow
[2018-01-24] MEDS: HEPARIN NA (PORCINE) 5,000 UNITS/ML 1ML VIAL SQ SCH ×3 (06:36→21:44)
[2018-01-24] MEDS: BACLOFEN 10 MG TABLET (FP) GT SCH ×3 (06:37→21:44)
--- NOTE | 2018-01-24 09:13 | PN ---
Physical Exam: SUBJECTIVE: Patient seen and examined at bedside. No acute changes overnight. Patient had low grade temps according to the nurse but no overt pain, diarrhea. OBJECTIVE: Vital Signs Period Temp Pulse Resp BP Sys/Saha Pulse Ox Last 24 Hr 97.4 F-100.0 F 86-98 20-22 98-136/56-97 100 GENERAL: Nonverbal, paraplegic. Moist mucus membranes. HEENT: NC/AT. on 2L NC. NECK: no LAD. No JVD. LUNGS: Bilateral wheezes present in upper and lower lobes. No accessory muscle use. Currently on High flow oxygen. HEART: Regular rate and rhythm, S1, S2 without murmur, rub or gallop. ABDOMEN: Soft, nontender, nondistended, normoactive bowel sounds, no masses. G tube in place. EXTREMITIES: No peripheral edema noted. B/l lower extremities contracted. No decubitus ulcers noted on exam. NEUROLOGICAL: Unable to perform. SKIN: Warm, dry, normal turgor, no rashes or lesions noted Laboratory Results - last 24 hr 01/23/18 01/23/18 15:00 21:50 WBC 15.9 H RBC 3.14 L Hgb 9.4 L Hct 29.8 L MCV 94.8 MCH 29.8 MCHC 31.4 L RDW 17.3 H Plt Count 513 H MPV 7.9 Stool Occult Blood Negative Active Medications Generic Name Dose Route Start Last Admin Trade Name Freq PRN Reason Stop Dose Admin Acetaminophen 650 mg 01/22/18 11:46 01/23/18 01:46 Tylenol Oral Solution - GT 650 mg Q6H PRN Administration FEVER Albuterol/Ipratropium 1 amp 01/21/18 09:29 Duoneb - NEB Q4H PRN SHORTNESS OF BREATH Amino Acids 30 ml 01/22/18 08:00 01/23/18 10:01 Prosource No Carb Liquid Pkt PO 30 ml DAILY@0800 JULIO Administration Baclofen 10 mg 01/21/18 14:00 01/24/18 06:37 Lioresal - GT 10 mg TID JULIO Administration Clobazam 15 mg 01/21/18 10:00 01/23/18 22:47 Onfi - PO 15 mg BID JULIO Administration Diazepam 5 mg 01/21/18 10:00 07/13/18 10:01 Valium - GT 5 mg DAILY@1000 JULIO Administration Heparin Sodium (Porcine) 5,000 unit 01/21/18 14:00 01/24/18 06:36 Heparin - SQ 5,000 unit TID JULIO Administration Sodium Chloride 1,000 mls @ 100 mls/hr 01/22/18 12:45 01/23/18 22:49 1/2 Normal Saline IV 100 mls/hr ASDIR JULIO Administration Topiramate 100 mg 01/21/18 10:00 01/23/18 22:51 Topamax - GT 100 mg BID JULIO Administration ASSESSMENT/PLAN: 27M nonverbal male at baseline from [facility] w/ pmhx of chronic aspiration, pneumonia, asthma, UTI, seizure, paraplegia, MR/DD, scoliosis admitted for sepsis 2/2 aspiration pna. #Sepsis secondary to aspiration pneumonia; Tmax 100.0 overnight. WBC trending down from 16.2 to 15.9 today - will do another UA, Urine culture, blood culture - No longer on abx; monitor for fever - LE duplex neg for DVT; DVT ruled out as cause of fever - CXR (01/22/18): Progressive congestive changes w/ persistently elevated R carla- diaphgram + some atelectatic changes #Acute Hypoxic Respiratory Failure - currently stable with 2L NC - aspiration precautions #Hypotension; . BP 107/59. stable. - monitor BP closely #Seizure d/o; no seizure activity today. - cont Topiramate 100 mg GT BID - cont Valium 5 mg GT QD #Asthma exacerbation -cont Duoneb 1 amp neb Q4 PRN #Anemia; Stable. -FOBT today was negative; Hgb 8.8 this morning, rechecked, now 9.4. -TIBC 163, Ferr 840.2 -continue to monitor CBC #Paraplegia: -reposition when needed for comfort #VTE prophylaxis -Heparin 5000 units SQ TID #FEN .5NS @ 100cc/hr recheck electrolytes in AM Jevity 1.5 dispo [facility] upon d/c Off isolation precautions Visit type - Emergency Visit Emergency Visit: No - New Patient This patient is new to me today: No - Critical Care Critical Care patient: No
[2018-01-24] MEDS ORDERED: PT OWN MED DRAWER 7, Y5N ONE ×2 (10:32→21:43)
--- NOTE | 2018-01-24 10:56 | PN ---
Progress Note (short form) - Note Progress Note: PULMONARY tmax 99.6 Gen: NAD, breathing nonlabored Heart: RRR Lung: scattered rhonchi minimal Abd: soft, nontender Ext: no edema labs/meds/notes/images/micro noted C.Diff negative/vascular study negative for DVT ASSESSMENT AND PLAN: Pneumonia UTI Septic Shock improved Acute Kidney Injury Cerebral Palsy Mental Retardation Seizure Disorder Asthma - monitor temps - completed antibiotics - inhaled bronchodilators - O2 to keep Spo2 >90% - aspiration precautions - enteral feeds - DVT prophylaxis - D/C Planning Dexter KEEN MD
[2018-01-24] MEDS: AMINO ACIDS/PROTEIN HYDROLYS 30 ML LIQUID.PKT PO SCH (10:57)
[2018-01-24] MEDS: diazePAM 5 MG TABLET GT SCH (10:57)
[2018-01-24] MEDS: TOPIRAMATE 100 MG TABLET GT SCH ×2 (10:57→21:44)
[2018-01-24] MEDS: cloBAZam 10 MG TABLET PO SCH ×2 (10:58→21:44)
--- NOTE | 2018-01-24 13:53 | PN ---
Teaching Attending Note Name of Resident: Tyson Graham ATTENDING PHYSICIAN STATEMENT I saw and evaluated the patient. I reviewed the resident's note and discussed the case with the resident. I agree with the resident's findings and plan as documented. SUBJECTIVE: No events over night. cont to have low grade fever OBJECTIVE: NAD , awake , non verbal , MMM . comfortable CV: RRR Lungs: b/l rales at bases improved Ext: no edema Abd: soft, NT, ND , NL BS ASSESSMENT AND PLAN: 27 y/o male with h/o MR, scoliosis, PNA , aspiration , seizures and other medical problems who presented with SOB and wheezing. 1- Acute hypoxic resp failure. resolved . Pneumonia treated 2- persistent Fevers; unclear reason still. No DVT on US,cxray with no infiltrate.C diff neg - repeat blood culture, UA , and urine culture. - continue to monitor off antibiotics 2- UTI . finished treatment, repeat ua and U cx due to persistent fever 3- Seizure disorder : cont Onfi and topamax 4- SHONDA " improved. - decrease IVF to 50 cc /hr - cont increased free water flushes to TF Dispo: discharge is pending resolution of fever
[2018-01-24] MEDS: SODIUM CHLORIDE 0.45% 1,000 ML IV SCH (14:48)
[2018-01-24 15:26] LABS: URINE APPEARANCE CLEAR; URINE BILIRUBIN NEGATIVE (<2.0 mg/dL); URINE COLOR STRAW; URINE GLUCOSE (UA) NEGATIVE (NEGATIVE); URINE KETONE NEGATIVE (NEGATIVE); URINE NITRITE NEGATIVE (NEGATIVE); URINE PROTEIN NEGATIVE (NEGATIVE); URINE UROBILINOGEN NEGATIVE mg/dL (0.2-1.0)
[2018-01-24 15:32] LABS: URINE LEUK ESTERASE 2+ (NEGATIVE)
[2018-01-24 15:36] LABS: EPI CELLS RARE /HPF (FEW); URINE BACTERIA RARE /hpf (NONE SEEN)
[2018-01-25] MEDS: HEPARIN NA (PORCINE) 5,000 UNITS/ML 1ML VIAL SQ SCH ×3 (05:10→21:36)
[2018-01-25] MEDS: SODIUM CHLORIDE 0.45% 1,000 ML IV SCH ×3 (05:10→18:13)
[2018-01-25] MEDS: BACLOFEN 10 MG TABLET (FP) GT SCH ×3 (05:11→21:36)
[2018-01-25 08:48] LABS: BASO % 0.1 % (0-2.0); EOS % 1.1 % (0-4.5); HEMATOCRIT 27.2 % (35.4-49); HEMOGLOBIN 8.7 GM/dL (11.7-16.9); LYMPH % 12.8 % (8-40); MCH 30.1 pg (25.7-33.7); MCHC 32.1 g/dl (32.0-35.9); MEAN PLT VOLUME 7.6 fl (7.5-11.1); MONO % 5.2 % (3.8-10.2); NEUT % 80.8 % (42.8-82.8); PLATELET COUNT 571 K/MM3 (134-434); RBC 2.89 M/mm3 (4.00-5.60); RDW 17.2 % (11.9-15.9); WHITE BLOOD COUNT 15.7 K/mm3 (4.0-10.0)
[2018-01-25 09:16] LABS: ANION GAP 8 (8-16); BLOOD UREA NITROGEN 22 mg/dL (7-18); CALCIUM 8.3 mg/dL (8.5-10.1); CHLORIDE 112 mmol/L (98-107); CO2 22 mmol/L (21-32); CREATININE 0.9 mg/dL (0.7-1.3); GLUCOSE,RANDOM 95 mg/dL (74-106); SODIUM 142 mmol/L (136-145)
--- NOTE | 2018-01-25 09:53 | PN ---
Progress Note (short form) - Note Progress Note: PULMONARY Temps trending down Gen: NAD, breathing nonlabored Heart: RRR Lung: scattered rhonchi minimal Abd: soft, nontender Ext: no edema labs/meds/notes/images/micro noted C.Diff negative/vascular study negative for DVT ASSESSMENT AND PLAN: Pneumonia UTI Septic Shock improved Acute Kidney Injury Cerebral Palsy Mental Retardation Seizure Disorder Asthma - monitor temps - completed antibiotics - inhaled bronchodilators - O2 to keep Spo2 >90% - aspiration precautions - enteral feeds - DVT prophylaxis - D/C Planning Dexter KEEN MD
[2018-01-25] MEDS: cloBAZam 10 MG TABLET PO SCH ×2 (10:38→21:36)
[2018-01-25] MEDS: AMINO ACIDS/PROTEIN HYDROLYS 30 ML LIQUID.PKT PO SCH (10:39)
[2018-01-25] MEDS: diazePAM 5 MG TABLET GT SCH (10:39)
[2018-01-25] MEDS: TOPIRAMATE 100 MG TABLET GT SCH ×2 (10:39→21:36)
[2018-01-25] MEDS: ACETAMINOPHEN 650 MG/20.3 ML ORAL SOLUTION (CUPS) GT PRN (14:58)
--- NOTE | 2018-01-25 18:06 | PN ---
Progress Note (short form) - Note Progress Note: Subjective: cont to have fever . Objective: Vital Signs: Last Vital Signs Temp Pulse Resp BP Pulse Ox 100.8 F H 111 H 20 109/61 98 01/25/18 14:14 01/25/18 14:14 01/25/18 14:14 01/25/18 14:14 01/24/18 21:39 Laboratory Results - last 24 hr 01/25/18 01/25/18 08:15 08:15 WBC 15.7 H RBC 2.89 L Hgb 8.7 L Hct 27.2 L MCV 94.0 MCH 30.1 MCHC 32.1 RDW 17.2 H Plt Count 571 H MPV 7.6 Absolute Neuts (auto) 12.7 Neutrophils % 80.8 Lymphocytes % 12.8 Monocytes % 5.2 Eosinophils % 1.1 Basophils % 0.1 Nucleated RBC % 0 Sodium 142 Potassium 4.0 Chloride 112 H Carbon Dioxide 22 Anion Gap 8 BUN 22 H Creatinine 0.9 Creat Clearance w eGFR > 60 Random Glucose 95 D Calcium 8.3 L Physical Exam: NAD , awake , non verbal , MMM . comfortable CV: RRR Lungs: clear anteriorly Ext: no edema Abd: soft, NT, ND , NL BS ASSESSMENT AND PLAN: 27 y/o male with h/o MR, scoliosis, PNA , aspiration , seizures and other medical problems who presented with SOB and wheezing. 1- Acute hypoxic resp failure. resolved . Pneumonia treated 2- persistent Fevers; urine culture grew lactose fermenting GNR , > [id number] colonies start ceftriaxone . follow urine cx 3- Seizure disorder : cont Onfi and topamax 4- SHONDA: improved. BUN is still elevated - cont IVF to 50 cc /hr - cont increased free water flushes to TF Dispo: HLOC Visit type - Emergency Visit Emergency Visit: Yes ED Registration Date: 01/14/18 Care time: The patient presented to the Emergency Department on the above date and was hospitalized for further evaluation of their emergent condition. - New Patient This patient is new to me today: No - Critical Care Critical Care patient: No
[2018-01-25] MEDS ORDERED: DEXTROSE 5%-WATER - 50 ML IVPB ONE (18:08)
[2018-01-25] MEDS ORDERED: cefTRIAXone SODIUM 1 GM VIAL ONE (18:08)
[2018-01-25] MEDS: CEFTRIAXONE 1 GM in DEXTROSE 5%-WATER - 50 ML IVPB SCH (18:12)
[2018-01-25] MEDS ORDERED: PT OWN MED DRAWER 7, Y5N ONE (21:22)
[2018-01-26] MEDS: HEPARIN NA (PORCINE) 5,000 UNITS/ML 1ML VIAL SQ SCH ×3 (06:05→23:05)
[2018-01-26] MEDS: BACLOFEN 10 MG TABLET (FP) GT SCH ×3 (06:05→23:05)
[2018-01-26] MEDS: ACETAMINOPHEN 650 MG/20.3 ML ORAL SOLUTION (CUPS) GT PRN (06:05)
[2018-01-26 07:44] LABS: BASO % 0.3 % (0-2.0); EOS % 1.3 % (0-4.5); HEMATOCRIT 28.6 % (35.4-49); LYMPH % 14.7 % (8-40); MCH 29.7 pg (25.7-33.7); MCHC 31.6 g/dl (32.0-35.9); MEAN CELL VOLUME 94.2 fl (80-96); MEAN PLT VOLUME 7.7 fl (7.5-11.1); MONO % 5.7 % (3.8-10.2); PLATELET COUNT 620 K/MM3 (134-434); RBC 3.04 M/mm3 (4.00-5.60); RDW 16.9 % (11.9-15.9); WHITE BLOOD COUNT 15.6 K/mm3 (4.0-10.0)
--- NOTE | 2018-01-26 09:27 | PN ---
Progress Note (short form) - Note Progress Note: Neurology HISTORY OF PRESENT ILLNESS: 27 y/o wheelchair quinn, nonverbal male from [facility] presents with difficulty breathing, rhonchi, and wheezing that began earlier afternoon of admssion. As per health aid at bedside, patient was given multiple nebulizer treatments which were minimally palliative at [facility]. Reported O2 saturation at [facility] was 94%. Patient was also hypothermic upon presentation at 92.3 degrees F. Admitted for sepsis management, ID following for UTI, PNA. Consulted for seizure like activity. He has h/o seizure and has been on TPM, Onfi, Valium as listed below. Had also been given loading dose of Keppra. Due to hypotension ( requiring Phenylephrine) his valium had been held in the morning. Thereafter partial seizure activity occured in evening and discussed with nurse to give valium dose as regularly scheduled. Since then has been seizure free. Spoke with ICU team and confirmed no witnessed events. If recurrence, then keppra can be added, but has not occured while admitted. Has been off bp support, restarted on ceftriaxone 2/2 fevers, infection. Resting comfortable, no seizure events. Neurologically stable. Active Medications Acetaminophen (Tylenol Oral Solution -) 650 mg GT Q6H PRN PRN Reason: FEVER Last Admin: 01/26/18 06:05 Dose: 650 mg Albuterol/Ipratropium (Duoneb -) 1 amp NEB Q4H PRN PRN Reason: SHORTNESS OF BREATH Last Admin: 01/26/18 07:58 Dose: 1 amp Amino Acids (Prosource No Carb Liquid Pkt) 30 ml PO DAILY@0800 [facility] Last Admin: 01/25/18 10:39 Dose: 30 ml Baclofen (Lioresal -) 10 mg GT TID [facility] Last Admin: 01/26/18 06:05 Dose: 10 mg Clobazam (Onfi -) 15 mg PO BID [facility] Last Admin: 01/25/18 21:36 Dose: 15 mg Diazepam (Valium -) 5 mg GT DAILY@1000 [facility] Last Admin: 01/25/18 10:39 Dose: 5 mg Heparin Sodium (Porcine) (Heparin -) 5,000 unit SQ TID [facility] Last Admin: 01/26/18 06:05 Dose: 5,000 unit Sodium Chloride (1/2 Normal Saline) 1,000 mls @ 50 mls/hr IV ASDIR [facility] Last Admin: 01/25/18 18:13 Dose: 50 mls/hr Ceftriaxone Sodium 1 gm/ (Dextrose) 50 mls @ 100 mls/hr IVPB DAILY [facility] Last Admin: 01/25/18 18:12 Dose: 100 mls/hr Topiramate (Topamax -) 100 mg GT BID [facility] Last Admin: 01/25/18 21:36 Dose: 100 mg PHYSICAL EXAMINATION Vital Signs Period Temp Pulse Resp BP Sys/Saha Pulse Ox Last 24 Hr 97.3 F-100.9 F 90-111 20-20 91-120/56-75 100 GENERAL: Nonverbal, no acute distress. HEAD: normocephalic, atraumatic. EYES: Pupils equal, round and reactive to light, extraocular movements intact, sclera anicteric LUNGS: Course breath sounds and rhonchi, inspiratory and expiratory wheezes and crackles auscultated B/L HEART: Regular rate and rhythm, normal S1 and S2. No murmurs. ABDOMEN: Soft, nontender, not distended, normoactive bowel sounds, no guarding, no rebound. EXTREMITIES: 2+ radial pulses B/L. Unable to appreciate DP pulses. No peripheral edema. Neuro: Nonverbal, CN appear intact, not following commands but moves ext grossly , no abnormal movements noted CBCD WBC 15.6 K/mm3 (4.0-10.0) H 01/26/18 06:15 RBC 3.04 M/mm3 (4.00-5.60) L 01/26/18 06:15 Hgb 9.0 GM/dL (11.7-16.9) L 01/26/18 06:15 Hct 28.6 % (35.4-49) L 01/26/18 06:15 MCV 94.2 fl (80-96) 01/26/18 06:15 MCHC 31.6 g/dl (32.0-35.9) L 01/26/18 06:15 RDW 16.9 % (11.9-15.9) H 01/26/18 06:15 Plt Count 620 K/MM3 (134-434) H 01/26/18 06:15 MPV 7.7 fl (7.5-11.1) 01/26/18 06:15 CMP Sodium 142 mmol/L (136-145) 01/25/18 08:15 Potassium 4.0 mmol/L (3.5-5.1) 01/25/18 08:15 Chloride 112 mmol/L (98-107) H 01/25/18 08:15 Carbon Dioxide 22 mmol/L (21-32) 01/25/18 08:15 Anion Gap 8 (8-16) 01/25/18 08:15 BUN 22 mg/dL (7-18) H 01/25/18 08:15 Creatinine 0.9 mg/dL (0.7-1.3) 01/25/18 08:15 Creat Clearance w eGFR > 60 (>60) 01/25/18 08:15 Calcium 8.3 mg/dL (8.5-10.1) L 01/25/18 08:15 Total Bilirubin 0.1 mg/dL (0.2-1.0) L 01/23/18 06:30 AST 16 U/L (15-37) D 01/23/18 06:30 ALT 15 U/L (12-78) 01/23/18 06:30 Alkaline Phosphatase 114 U/L (45-117) 01/23/18 06:30 Total Protein 6.3 g/dl (6.4-8.2) L 01/23/18 06:30 Albumin 1.8 g/dl (3.4-5.0) L 01/23/18 06:30 ASSESSMENT/PLAN: 27 y/o wheelchair quinn, nonverbal male from [facility] presents with difficulty breathing, rhonchi, and wheezing that began earlier afternoon of admssion. As per health aid at bedside, patient was given multiple nebulizer treatments which were minimally palliative at [facility]. Reported O2 saturation at [facility] was 94%. Patient was also hypothermic upon presentation at 92.3 degrees F. Admitted for sepsis management, ID following for UTI, PNA. Consulted for seizure like activity. He has h/o seizure and has been on TPM, Onfi, Valium as listed below. Had also been given loading dose of Keppra. Due to hypotension ( requiring Phenylephrine) his valium had been held in the morning. Thereafter partial seizure activity occured in evening and discussed with nurse to give valium dose as regularly scheduled. Since valium restarted, without seizure activity and stabilized. If recurs, then keppra can be added. 500mg twice daily, has not been needed Back on Ceftriaxone Monitor electrolytes Maintain adequate hydration Continue mgmt for infection which can precipitate events Has been stable neurologically, can continue current regiment of seizure medication if discharged over weekend
[2018-01-26] MEDS ORDERED: cefTRIAXone SODIUM 1 GM VIAL ONE (10:37)
[2018-01-26] MEDS ORDERED: DEXTROSE 5%-WATER - 50 ML IVPB ONE (10:38)
[2018-01-26] MEDS: diazePAM 5 MG TABLET GT SCH (10:41)
[2018-01-26] MEDS: AMINO ACIDS/PROTEIN HYDROLYS 30 ML LIQUID.PKT PO SCH (10:41)
[2018-01-26] MEDS: CEFTRIAXONE 1 GM in DEXTROSE 5%-WATER - 50 ML IVPB SCH (10:41)
[2018-01-26] MEDS: cloBAZam 10 MG TABLET PO SCH ×2 (10:41→23:05)
[2018-01-26] MEDS: TOPIRAMATE 100 MG TABLET GT SCH ×2 (10:41→23:05)
--- NOTE | 2018-01-26 11:04 | PN ---
Progress Note (short form) - Note Progress Note: PULMONARY Pt nonverbal. Low grade fevers overnight. Vital Signs Period Temp Pulse Resp BP Sys/Saha Pulse Ox Last 24 Hr 97.3 F-100.9 F 90-111 20-20 91-120/56-75 100 Gen: breathing nonlabored Heart: tachycardic, regular Lung: scattered rhonchi Abd: soft, nontender Ext: no edema CBC, BMP 01/26/18 06:15 01/25/18 08:15 Active Medications Acetaminophen (Tylenol Oral Solution -) 650 mg GT Q6H PRN PRN Reason: FEVER Last Admin: 01/26/18 06:05 Dose: 650 mg Amino Acids (Prosource No Carb Liquid Pkt) 30 ml PO DAILY@0800 [facility] Last Admin: 01/26/18 10:41 Dose: 30 ml Baclofen (Lioresal -) 10 mg GT TID [facility] Last Admin: 01/26/18 06:05 Dose: 10 mg Clobazam (Onfi -) 15 mg PO BID [facility] Last Admin: 01/26/18 10:41 Dose: 15 mg Diazepam (Valium -) 5 mg GT DAILY@1000 [facility] Last Admin: 01/26/18 10:41 Dose: 5 mg Heparin Sodium (Porcine) (Heparin -) 5,000 unit SQ TID [facility] Last Admin: 01/26/18 06:05 Dose: 5,000 unit Sodium Chloride (1/2 Normal Saline) 1,000 mls @ 50 mls/hr IV ASDIR [facility] Last Admin: 01/25/18 18:13 Dose: 50 mls/hr Ceftriaxone Sodium 1 gm/ (Dextrose) 50 mls @ 100 mls/hr IVPB DAILY [facility] Last Admin: 01/26/18 10:41 Dose: 100 mls/hr Topiramate (Topamax -) 100 mg GT BID [facility] Last Admin: 01/26/18 10:41 Dose: 100 mg A/P Pneumonia UTI Septic Shock improved Cerebral Palsy Mental Retardation Seizure Disorder Asthma - complete antibiotics - inhaled bronchodilators - O2 to keep Spo2 >90% - aspiration precautions - enteral feeds - DVT prophylaxis
[2018-01-26] MEDS: SODIUM CHLORIDE 0.45% 1,000 ML IV SCH (13:18)
--- NOTE | 2018-01-26 14:33 | PN ---
Physical Exam: SUBJECTIVE: Patient seen and examined at bedside. As per nurse, fever at 100.9, Tylenol given. No BM. No other acute events overnight. OBJECTIVE: Vital Signs Period Temp Pulse Resp BP Sys/Saha Pulse Ox Last 24 Hr 97.3 F-100.9 F 90-111 20-20 91-120/56-75 92-100 GENERAL: Nonverbal, paraplegic. Moist mucus membranes. HEENT: NC/AT. on 2L NC. NECK: no LAD. No JVD. LUNGS: Bilateral crackles, improved from previous exam. No accessory muscle use. Currently on O2 NC HEART: Regular rate and rhythm, S1, S2 without murmur, rub or gallop. ABDOMEN: Soft, nontender, nondistended, normoactive bowel sounds, no masses. G tube in place. EXTREMITIES: No peripheral edema noted. B/l lower extremities contracted. NEUROLOGICAL: Unable to perform. SKIN: Warm, dry, normal turgor, no rashes or lesions noted Laboratory Results - last 24 hr 01/26/18 06:15 WBC 15.6 H RBC 3.04 L Hgb 9.0 L Hct 28.6 L MCV 94.2 MCH 29.7 MCHC 31.6 L RDW 16.9 H Plt Count 620 H MPV 7.7 Absolute Neuts (auto) 12.2 Neutrophils % 78.0 Lymphocytes % 14.7 Monocytes % 5.7 Eosinophils % 1.3 Basophils % 0.3 Nucleated RBC % 0 Active Medications Generic Name Dose Route Start Last Admin Trade Name Freq PRN Reason Stop Dose Admin Acetaminophen 650 mg 01/22/18 11:46 01/26/18 06:05 Tylenol Oral Solution - GT 650 mg Q6H PRN Administration FEVER Amino Acids 30 ml 01/22/18 08:00 01/26/18 10:41 Prosource No Carb Liquid Pkt PO 30 ml DAILY@0800 JULIO Administration Baclofen 10 mg 01/21/18 14:00 01/26/18 13:18 Lioresal - GT 10 mg TID JULIO Administration Clobazam 15 mg 01/21/18 10:00 01/26/18 10:41 Onfi - PO 15 mg BID JULIO Administration Diazepam 5 mg 01/21/18 10:00 01/26/18 10:41 Valium - GT 5 mg DAILY@1000 JULIO Administration Heparin Sodium (Porcine) 5,000 unit 01/21/18 14:00 01/26/18 13:18 Heparin - SQ 5,000 unit TID JULIO Administration Sodium Chloride 1,000 mls @ 50 mls/hr 01/24/18 14:09 01/26/18 13:18 1/2 Normal Saline IV 50 mls/hr ASDIR JULIO Administration Ceftriaxone Sodium 1 gm/ 50 mls @ 100 mls/hr 01/25/18 18:15 01/26/18 10:41 Dextrose IVPB 100 mls/hr DAILY JULIO Administration Topiramate 100 mg 01/21/18 10:00 01/26/18 10:41 Topamax - GT 100 mg BID JULIO Administration ASSESSMENT/PLAN: 27M nonverbal male at baseline from [facility] w/ pmhx of chronic aspiration, pneumonia, asthma, UTI, seizure, paraplegia, MR/DD, scoliosis admitted for sepsis 2/2 aspiration pna. #Sepsis secondary to aspiration pneumonia - Resolved. Previously given Zosyn IV - CXR (01/22/18): Progressive congestive changes w/ persistently elevated R carla- diaphgram + some atelectatic changes #Persistent fever 2/2 likely pyelonephritis - Cont Rocephin 1 gm/D5 50 cc @ 100cc/hr (Day 2 of 10) - Urine cx: +lactose fermenting GNR >100,000 colonies - cont Tylenol 650 mg GT Q6H PRN for fevers #Acute Hypoxic Respiratory Failure - currently stable with 2L NC - aspiration precautions #Hypotension; BP 108/65. stable. - monitor BP closely #Seizure d/o; no seizure activity today. - cont Topiramate 100 mg GT BID - cont Valium 5 mg GT QD #Asthma exacerbation -cont Duoneb 1 amp neb Q4 PRN #Anemia; Stable, Hgb 9.0 today from 8.7 yesterday. -No evidence of acute GI bleed -TIBC 163, Ferr 840.2 -continue to monitor CBC #Paraplegia: -reposition when needed for comfort #DVT ppx -Heparin 5000 units SQ TID #FEN .5NS @ 100cc/hr recheck electrolytes in AM Jevity 1.5 dispo [facility] upon d/c Off isolation precautions Visit type - Emergency Visit Emergency Visit: No - New Patient This patient is new to me today: No - Critical Care Critical Care patient: No
--- NOTE | 2018-01-26 14:51 | PN ---
Teaching Attending Note Name of Resident: Shanice Trejo ATTENDING PHYSICIAN STATEMENT I saw and evaluated the patient. I reviewed the resident's note and discussed the case with the resident. I agree with the resident's findings and plan as documented. SUBJECTIVE: cont to have low grade fever OBJECTIVE: NAD, awake , non verbal, MMM . comfortable CV: RRR Lungs: anterior aspects and sides clear , with decreased breath sounds at base Ext: no edema Abd: soft, NT, ND , NL BS ASSESSMENT AND PLAN: 27 y/o male with h/o MR, scoliosis, PNA , aspiration , seizures and other medical problems who presented with SOB and wheezing. 1- Acute hypoxic resp failure. resolved. Pneumonia treated 2- persistent Fevers; urine culture with lactose fermenting GNR Cont ceftriaxone day 2 . follow final urine cx. expect fever to remit within 48 hours from Abx use 3- Seizure disorder: cont Onfi and topamax 4- SHONDA: improved. - cont IVF for now - cont increased free water flushes to TF Dispo: HLOC
[2018-01-26] MEDS ORDERED: PT OWN MED DRAWER 7, Y5N ONE (22:56)
[2018-01-27] MEDS: BACLOFEN 10 MG TABLET (FP) GT SCH ×3 (06:56→21:17)
[2018-01-27] MEDS: HEPARIN NA (PORCINE) 5,000 UNITS/ML 1ML VIAL SQ SCH ×3 (06:56→21:15)
[2018-01-27 08:57] LABS: BASO % 0.3 % (0-2.0); EOS % 1.4 % (0-4.5); HEMATOCRIT 26.6 % (35.4-49); HEMOGLOBIN 8.5 GM/dL (11.7-16.9); LYMPH % 16.3 % (8-40); MEAN CELL VOLUME 93.9 fl (80-96); MEAN PLT VOLUME 7.7 fl (7.5-11.1); MONO % 6.5 % (3.8-10.2); NEUT % 75.5 % (42.8-82.8); PLATELET COUNT 691 K/MM3 (134-434); RBC 2.83 M/mm3 (4.00-5.60); RDW 16.6 % (11.9-15.9); WHITE BLOOD COUNT 13.2 K/mm3 (4.0-10.0)
--- NOTE | 2018-01-27 09:14 | PN ---
Progress Note (short form) - Note Progress Note: Neurology HISTORY OF PRESENT ILLNESS: 27 y/o wheelchair quinn, nonverbal male from [facility] named [facility] presents with difficulty breathing, rhonchi, and wheezing that began earlier afternoon of admssion. As per health aid at bedside, patient was given multiple nebulizer treatments which were minimally palliative at [facility]. Reported O2 saturation at [facility] was 94%. Patient was also hypothermic upon presentation at 92.3 degrees F. Admitted for sepsis management, ID following for UTI, PNA. Consulted for seizure like activity. He has h/o seizure and has been on TPM, Onfi, Valium as listed below. Had also been given loading dose of Keppra. Due to hypotension ( requiring Phenylephrine) his valium had been held in the morning. Thereafter partial seizure activity occured in evening and discussed with nurse to give valium dose as regularly scheduled. Since then has been seizure free. Spoke with ICU team and confirmed no witnessed events. If recurrence, then keppra can be added, but has not occured while admitted. Has been off bp support, restarted on ceftriaxone 2/2 fevers, infection. Fevers have improved yesterday and this AM. Resting comfortable, no seizure events. Neurologically stable. Active Medications Acetaminophen (Tylenol Oral Solution -) 650 mg GT Q6H PRN PRN Reason: FEVER Last Admin: 01/26/18 06:05 Dose: 650 mg Amino Acids (Prosource No Carb Liquid Pkt) 30 ml PO DAILY@0800 [facility] Last Admin: 01/26/18 10:41 Dose: 30 ml Baclofen (Lioresal -) 10 mg GT TID [facility] Last Admin: 01/27/18 06:56 Dose: 10 mg Clobazam (Onfi -) 15 mg PO BID [facility] Last Admin: 01/26/18 23:05 Dose: 15 mg Diazepam (Valium -) 5 mg GT DAILY@1000 [facility] Last Admin: 01/26/18 10:41 Dose: 5 mg Heparin Sodium (Porcine) (Heparin -) 5,000 unit SQ TID [facility] Last Admin: 01/27/18 06:56 Dose: 5,000 unit Sodium Chloride (1/2 Normal Saline) 1,000 mls @ 50 mls/hr IV ASDIR [facility] Last Admin: 01/26/18 13:18 Dose: 50 mls/hr Ceftriaxone Sodium 1 gm/ (Dextrose) 50 mls @ 100 mls/hr IVPB DAILY [facility] Last Admin: 01/26/18 10:41 Dose: 100 mls/hr Topiramate (Topamax -) 100 mg GT BID [facility] Last Admin: 01/26/18 23:05 Dose: 100 mg PHYSICAL EXAMINATION Vital Signs Temperature 98.1 F 01/27/18 05:40 Pulse Rate 106 H 01/27/18 05:40 Respiratory Rate 20 01/27/18 05:40 Blood Pressure 120/68 01/27/18 05:40 O2 Sat by Pulse Oximetry (%) 97 01/26/18 21:00 GENERAL: Nonverbal, no acute distress. HEAD: normocephalic, atraumatic. EYES: Pupils equal, round and reactive to light, extraocular movements intact, sclera anicteric LUNGS: Course breath sounds and rhonchi, inspiratory and expiratory wheezes and crackles auscultated B/L HEART: Regular rate and rhythm, normal S1 and S2. No murmurs. ABDOMEN: Soft, nontender, not distended, normoactive bowel sounds, no guarding, no rebound. EXTREMITIES: 2+ radial pulses B/L. Unable to appreciate DP pulses. No peripheral edema. Neuro: Nonverbal, CN appear intact, not following commands but moves ext grossly , no abnormal movements noted CBCD WBC 13.2 K/mm3 (4.0-10.0) H 01/27/18 08:02 RBC 2.83 M/mm3 (4.00-5.60) L 01/27/18 08:02 Hgb 8.5 GM/dL (11.7-16.9) L 01/27/18 08:02 Hct 26.6 % (35.4-49) L 01/27/18 08:02 MCV 93.9 fl (80-96) 01/27/18 08:02 MCHC 32.0 g/dl (32.0-35.9) 01/27/18 08:02 RDW 16.6 % (11.9-15.9) H 01/27/18 08:02 Plt Count 691 K/MM3 (134-434) H 01/27/18 08:02 MPV 7.7 fl (7.5-11.1) 01/27/18 08:02 CMP Sodium 142 mmol/L (136-145) 01/25/18 08:15 Potassium 4.0 mmol/L (3.5-5.1) 01/25/18 08:15 Chloride 112 mmol/L (98-107) H 01/25/18 08:15 Carbon Dioxide 22 mmol/L (21-32) 01/25/18 08:15 Anion Gap 8 (8-16) 01/25/18 08:15 BUN 22 mg/dL (7-18) H 01/25/18 08:15 Creatinine 0.9 mg/dL (0.7-1.3) 01/25/18 08:15 Creat Clearance w eGFR > 60 (>60) 01/25/18 08:15 Calcium 8.3 mg/dL (8.5-10.1) L 01/25/18 08:15 Total Bilirubin 0.1 mg/dL (0.2-1.0) L 01/23/18 06:30 AST 16 U/L (15-37) D 01/23/18 06:30 ALT 15 U/L (12-78) 01/23/18 06:30 Alkaline Phosphatase 114 U/L (45-117) 01/23/18 06:30 Total Protein 6.3 g/dl (6.4-8.2) L 01/23/18 06:30 Albumin 1.8 g/dl (3.4-5.0) L 01/23/18 06:30 ASSESSMENT/PLAN: 27 y/o wheelchair quinn, nonverbal male from [facility] named [facility] presents with difficulty breathing, rhonchi, and wheezing that began earlier afternoon of admssion. As per health aid at bedside, patient was given multiple nebulizer treatments which were minimally palliative at [facility]. Reported O2 saturation at [facility] was 94%. Patient was also hypothermic upon presentation at 92.3 degrees F. Admitted for sepsis management, ID following for UTI, PNA. Consulted for seizure like activity. He has h/o seizure and has been on TPM, Onfi, Valium as listed below. Had also been given loading dose of Keppra. Due to hypotension ( requiring Phenylephrine) his valium had been held in the morning. Thereafter partial seizure activity occured in evening and discussed with nurse to give valium dose as regularly scheduled. Since valium restarted, without seizure activity and stabilized. If recurs, then keppra can be added. 500mg twice daily, has not been needed Back on Ceftriaxone, fevers improved Monitor electrolytes Maintain adequate hydration Continue mgmt for infection which can precipitate events Has been stable neurologically, can continue current regiment of seizure medication if discharged over weekend
[2018-01-27 09:39] LABS: ALK PHOS 224 U/L (45-117); ANION GAP 10 (8-16); BILIRUBIN,TOTAL 0.1 mg/dL (0.2-1.0); BLOOD UREA NITROGEN 20 mg/dL (7-18); CALCIUM 8.5 mg/dL (8.5-10.1); CHLORIDE 111 mmol/L (98-107); CO2 21 mmol/L (21-32); GLUCOSE,RANDOM 95 mg/dL (74-106); POTASSIUM 4.2 mmol/L (3.5-5.1); SGOT/AST 17 U/L (15-37); SGPT/ALT 15 U/L (12-78); SODIUM 142 mmol/L (136-145)
[2018-01-27] MEDS ORDERED: cefTRIAXone SODIUM 1 GM VIAL ONE (10:26)
[2018-01-27] MEDS ORDERED: DEXTROSE 5%-WATER - 50 ML IVPB ONE (10:27)
[2018-01-27] MEDS: cloBAZam 10 MG TABLET PO SCH ×2 (10:36→21:17)
[2018-01-27] MEDS: TOPIRAMATE 100 MG TABLET GT SCH ×2 (10:36→21:17)
[2018-01-27] MEDS: AMINO ACIDS/PROTEIN HYDROLYS 30 ML LIQUID.PKT PO SCH (10:36)
[2018-01-27] MEDS: CEFTRIAXONE 1 GM in DEXTROSE 5%-WATER - 50 ML IVPB SCH (10:36)
[2018-01-27] MEDS: diazePAM 5 MG TABLET GT SCH (10:37)
--- NOTE | 2018-01-27 10:44 | PN ---
Progress Note (short form) - Note Progress Note: PULMONARY Pt nonverbal. Fever curve down. Vital Signs Period Temp Pulse Resp BP Sys/Saha Pulse Ox Last 24 Hr 98.1 F-98.5 F 104-113 20-28 114-120/67-78 97 Gen: breathing nonlabored Heart: tachycardic, regular Lung: scattered rhonchi Abd: soft, nontender Ext: no edema CBC, BMP 01/27/18 08:02 01/27/18 08:02 Active Medications Acetaminophen (Tylenol Oral Solution -) 650 mg GT Q6H PRN PRN Reason: FEVER Last Admin: 01/26/18 06:05 Dose: 650 mg Amino Acids (Prosource No Carb Liquid Pkt) 30 ml PO DAILY@0800 [facility] Last Admin: 01/27/18 10:36 Dose: 30 ml Baclofen (Lioresal -) 10 mg GT TID [facility] Last Admin: 01/27/18 06:56 Dose: 10 mg Clobazam (Onfi -) 15 mg PO BID [facility] Last Admin: 01/27/18 10:36 Dose: 15 mg Diazepam (Valium -) 5 mg GT DAILY@1000 [facility] Last Admin: 01/27/18 10:37 Dose: 5 mg Heparin Sodium (Porcine) (Heparin -) 5,000 unit SQ TID [facility] Last Admin: 01/27/18 06:56 Dose: 5,000 unit Sodium Chloride (1/2 Normal Saline) 1,000 mls @ 50 mls/hr IV ASDIR [facility] Last Admin: 01/26/18 13:18 Dose: 50 mls/hr Ceftriaxone Sodium 1 gm/ (Dextrose) 50 mls @ 100 mls/hr IVPB DAILY [facility] Last Admin: 01/27/18 10:36 Dose: 100 mls/hr Topiramate (Topamax -) 100 mg GT BID [facility] Last Admin: 01/27/18 10:36 Dose: 100 mg A/P Pneumonia UTI Septic Shock improved Cerebral Palsy Mental Retardation Seizure Disorder Asthma - complete antibiotics - inhaled bronchodilators - O2 to keep Spo2 >90% - aspiration precautions - enteral feeds - DVT prophylaxis
--- NOTE | 2018-01-27 14:29 | PN ---
Physical Exam: SUBJECTIVE: Patient seen and examined at bedside. As per nurse, no acute events overnight. Temp 99.4. -BM. OBJECTIVE: Vital Signs Period Temp Pulse Resp BP Sys/Saha Pulse Ox Last 24 Hr 98.1 F-98.5 F 98-113 20-28 108-120/56-78 97 GENERAL: Nonverbal, paraplegic. Moist mucus membranes. HEENT: NC/AT. on 2L NC. NECK: no LAD. No JVD. LUNGS: Bilateral crackles, improved from previous exam. No accessory muscle use. Currently on O2 NC HEART: Regular rate and rhythm, S1, S2 without murmur, rub or gallop. ABDOMEN: PEG tube in place. +abdominal distension, +tympanic in all 4 Q's. Soft , nontender, hypoactive bowel sounds, no masses. EXTREMITIES: No peripheral edema noted. B/l lower extremities contracted. NEUROLOGICAL: Unable to perform. SKIN: Warm, dry, normal turgor, no rashes or lesions noted Laboratory Results - last 24 hr 01/27/18 01/27/18 08:02 08:02 WBC 13.2 H RBC 2.83 L Hgb 8.5 L Hct 26.6 L MCV 93.9 MCH 30.0 MCHC 32.0 RDW 16.6 H Plt Count 691 H MPV 7.7 Absolute Neuts (auto) 10.0 Neutrophils % 75.5 Lymphocytes % 16.3 Monocytes % 6.5 Eosinophils % 1.4 Basophils % 0.3 Nucleated RBC % 0 Sodium 142 Potassium 4.2 Chloride 111 H Carbon Dioxide 21 Anion Gap 10 BUN 20 H Creatinine 1.0 Creat Clearance w eGFR > 60 Random Glucose 95 Calcium 8.5 Total Bilirubin 0.1 L AST 17 ALT 15 Alkaline Phosphatase 224 H D Total Protein 7.0 Albumin 2.0 L Active Medications Generic Name Dose Route Start Last Admin Trade Name Freq PRN Reason Stop Dose Admin Acetaminophen 650 mg 01/22/18 11:46 01/26/18 06:05 Tylenol Oral Solution - GT 650 mg Q6H PRN Administration FEVER Amino Acids 30 ml 01/22/18 08:00 01/27/18 10:36 Prosource No Carb Liquid Pkt PO 30 ml DAILY@0800 [facility] Administration Baclofen 10 mg 01/21/18 14:00 01/27/18 06:56 Lioresal - GT 10 mg TID [facility] Administration Clobazam 15 mg 01/21/18 10:00 01/27/18 10:36 Onfi - PO 15 mg BID [facility] Administration Diazepam 5 mg 01/21/18 10:00 01/27/18 10:37 Valium - GT 5 mg DAILY@1000 [facility] Administration Heparin Sodium (Porcine) 5,000 unit 01/21/18 14:00 01/27/18 06:56 Heparin - SQ 5,000 unit TID [facility] Administration Sodium Chloride 1,000 mls @ 50 mls/hr 01/24/18 14:09 01/26/18 13:18 1/2 Normal Saline IV 50 mls/hr ASDIR [facility] Administration Ceftriaxone Sodium 1 gm/ 50 mls @ 100 mls/hr 01/25/18 18:15 01/27/18 10:36 Dextrose IVPB 100 mls/hr DAILY [facility] Administration Multi-Ingredient Ointment 1 applic 01/27/18 12:00 Zinc Oxide TP BID [facility] Topiramate 100 mg 01/21/18 10:00 01/27/18 10:36 Topamax - GT 100 mg BID [facility] Administration ASSESSMENT/PLAN: 27M nonverbal male at baseline from [facility] w/ pmhx of chronic aspiration, pneumonia, asthma, UTI, seizure, paraplegia, MR/DD, scoliosis admitted for sepsis 2/2 aspiration pna. #Sepsis secondary to aspiration pneumonia - Resolved. Previously given IV Zosyn. - CXR (01/22/18): Progressive congestive changes w/ persistently elevated R carla- diaphgram + some atelectatic changes #Persistent fever 2/2 likely pyelonephritis; Afebrile for the past 24 hours, WBC trending down 13.2<15.6. - Cont Rocephin 1 gm/D5 50 cc @ 100cc/hr (Day 3 ) - Urine cx: +lactose fermenting GNR >100,000 colonies - cont Tylenol 650 mg GT Q6H PRN for fevers - f/U KUB for further evaluation of abdominal distension #Acute Hypoxic Respiratory Failure - currently stable on RA, O2 sat 99%. - Spoke to Dr. Bae at [facility], patient does not need home O2. - aspiration precautions #Hypotension; BP 120/68. stable. - monitor BP closely #Seizure d/o; no seizure activity today. - cont Topiramate 100 mg GT BID - cont Valium 5 mg GT QD #Asthma exacerbation -cont Duoneb 1 amp neb Q4 PRN #Anemia; Stable, Hgb 8.5 today from 9.0 yesterday. -No evidence of acute GI bleed -TIBC 163, Ferr 840.2 -continue to monitor CBC #Paraplegia: -reposition when needed for comfort #DVT ppx -Heparin 5000 units SQ TID #FEN .5NS @ 100cc/hr recheck electrolytes in AM Jevity 1.5 dispo [facility] upon d/c Off isolation precautions Visit type - Emergency Visit Emergency Visit: No - New Patient This patient is new to me today: No - Critical Care Critical Care patient: No
[2018-01-27] MEDS: ZINC OXIDE 20% TOPICAL OINTMENT 30 GM TUBE TP SCH ×2 (15:23→21:15)
[2018-01-27] MEDS: SODIUM CHLORIDE 0.45% 1,000 ML IV SCH (15:24)
--- NOTE | 2018-01-27 17:48 | PN ---
Teaching Attending Note Name of Resident: Shanice Trejo ATTENDING PHYSICIAN STATEMENT I saw and evaluated the patient. I reviewed the resident's note and discussed the case with the resident. I agree with the resident's findings and plan as documented. SUBJECTIVE: No events over night OBJECTIVE: NAD, awake, non verbal, MMM . comfortable CV: RRR Lungs:clear, with decreased breath sounds at base. Ext: no edema Abd: soft, NT, ND , NL BS ASSESSMENT AND PLAN: 27 y/o male with h/o MR, scoliosis, PNA , aspiration , seizures and other medical problems who presented with SOB and wheezing. 1- Acute hypoxic resp failure. resolved. Pneumonia treated 2- persistent Fevers; urine culture with lactose fermenting GNR Cont ceftriaxone day 09/20 . if WBC cont to trend down and fever does not recur , can probably switch to PO Abx per sensitivity after tomorrow's dose follow final urine cx. 3- Seizure disorder: cont Onfi and topamax 4- SHONDA: improved. - cont IVF for now . will dc tomorrow if no more fever - cont increased free water flushes to TF Dispo: HLOC
[2018-01-28] MEDS: BACLOFEN 10 MG TABLET (FP) GT SCH ×2 (06:10→13:29)
[2018-01-28] MEDS: HEPARIN NA (PORCINE) 5,000 UNITS/ML 1ML VIAL SQ SCH ×2 (06:10→13:29)
[2018-01-28 06:35] LABS: BASO % 0.5 % (0-2.0); EOS % 1.8 % (0-4.5); HEMATOCRIT 28.2 % (35.4-49); LYMPH % 23.3 % (8-40); MCH 29.9 pg (25.7-33.7); MCHC 31.8 g/dl (32.0-35.9); MEAN CELL VOLUME 94.1 fl (80-96); MEAN PLT VOLUME 7.7 fl (7.5-11.1); MONO % 6.1 % (3.8-10.2); NEUT % 68.3 % (42.8-82.8); PLATELET COUNT 810 K/MM3 (134-434); RDW 16.6 % (11.9-15.9); WHITE BLOOD COUNT 12.7 K/mm3 (4.0-10.0)
[2018-01-28 06:55] LABS: ALBUMIN 2.1 g/dl (3.4-5.0); ANION GAP 6 (8-16); BLOOD UREA NITROGEN 24 mg/dL (7-18); CALCIUM 8.8 mg/dL (8.5-10.1); CHLORIDE 109 mmol/L (98-107); CO2 25 mmol/L (21-32); GLUCOSE,RANDOM 94 mg/dL (74-106); POTASSIUM 4.5 mmol/L (3.5-5.1); SODIUM 140 mmol/L (136-145)
[2018-01-28 07:01] LABS: ALK PHOS 228 U/L (45-117); BILIRUBIN,TOTAL 0.1 mg/dL (0.2-1.0); CREATININE 1.1 mg/dL (0.7-1.3); SGOT/AST 18 U/L (15-37); SGPT/ALT 17 U/L (12-78); TOT PROT 7.4 g/dl (6.4-8.2)
--- NOTE | 2018-01-28 08:15 | PN ---
Physical Exam: SUBJECTIVE: Patient seen and examined at bedside. As per nurse, afebrile overnight. Pt lost IV access overnight, night team and nurse tried, but not successful. No other acute events overnight. OBJECTIVE: Vital Signs Period Temp Pulse Resp BP Sys/Saha Pulse Ox Last 24 Hr 97.7 F-99.1 F 96-105 16-20 100-133/54-64 97-97 GENERAL: Nonverbal, paraplegic. Moist mucus membranes. HEENT: NC/AT. on 2L NC. NECK: no LAD. No JVD. LUNGS: Bilateral crackles, improved from previous exam. No accessory muscle use. Currently on O2 NC HEART: Regular rate and rhythm, S1, S2 without murmur, rub or gallop. ABDOMEN: PEG tube in place. +abdominal distension, but improved since yesterday , +tympanic in all 4 Q's. Soft, nontender, hypoactive bowel sounds, no masses. EXTREMITIES: No peripheral edema noted. B/l lower extremities contracted. NEUROLOGICAL: Unable to perform. SKIN: Warm, dry, normal turgor, no rashes or lesions noted Laboratory Results - last 24 hr 01/27/18 01/27/18 01/28/18 08:02 08:02 06:00 WBC 13.2 H 12.7 H RBC 2.83 L 3.00 L Hgb 8.5 L 9.0 L Hct 26.6 L 28.2 L MCV 93.9 94.1 MCH 30.0 29.9 MCHC 32.0 31.8 L RDW 16.6 H 16.6 H Plt Count 691 H 810 H MPV 7.7 7.7 Absolute Neuts (auto) 10.0 8.7 Neutrophils % 75.5 68.3 Lymphocytes % 16.3 23.3 D Monocytes % 6.5 6.1 Eosinophils % 1.4 1.8 Basophils % 0.3 0.5 Nucleated RBC % 0 0 Sodium 142 Potassium 4.2 Chloride 111 H Carbon Dioxide 21 Anion Gap 10 BUN 20 H Creatinine 1.0 Creat Clearance w eGFR > 60 Random Glucose 95 Calcium 8.5 Total Bilirubin 0.1 L AST 17 ALT 15 Alkaline Phosphatase 224 H D Total Protein 7.0 Albumin 2.0 L 01/28/18 06:00 WBC RBC Hgb Hct MCV MCH MCHC RDW Plt Count MPV Absolute Neuts (auto) Neutrophils % Lymphocytes % Monocytes % Eosinophils % Basophils % Nucleated RBC % Sodium 140 Potassium 4.5 Chloride 109 H Carbon Dioxide 25 Anion Gap 6 L BUN 24 H Creatinine 1.1 Creat Clearance w eGFR > 60 Random Glucose 94 Calcium 8.8 Total Bilirubin 0.1 L AST 18 ALT 17 Alkaline Phosphatase 228 H Total Protein 7.4 Albumin 2.1 L Active Medications Generic Name Dose Route Start Last Admin Trade Name Freq PRN Reason Stop Dose Admin Acetaminophen 650 mg 01/22/18 11:46 01/26/18 06:05 Tylenol Oral Solution - GT 650 mg Q6H PRN Administration FEVER Amino Acids 30 ml 01/22/18 08:00 01/27/18 10:36 Prosource No Carb Liquid Pkt PO 30 ml DAILY@0800 [facility] Administration Baclofen 10 mg 01/21/18 14:00 01/28/18 06:10 Lioresal - GT 10 mg TID [facility] Administration Clobazam 15 mg 01/21/18 10:00 01/27/18 21:17 Onfi - PO 15 mg BID [facility] Administration Diazepam 5 mg 01/21/18 10:00 01/27/18 10:37 Valium - GT 5 mg DAILY@1000 [facility] Administration Heparin Sodium (Porcine) 5,000 unit 01/21/18 14:00 01/28/18 06:10 Heparin - SQ 5,000 unit TID [facility] Administration Sodium Chloride 1,000 mls @ 50 mls/hr 01/24/18 14:09 01/27/18 15:24 1/2 Normal Saline IV 50 mls/hr ASDIR [facility] Administration Ceftriaxone Sodium 1 gm/ 50 mls @ 100 mls/hr 01/25/18 18:15 01/27/18 10:36 Dextrose IVPB 100 mls/hr DAILY [facility] Administration Multi-Ingredient Ointment 1 applic 01/27/18 12:00 01/27/18 21:15 Zinc Oxide TP 1 applic BID [facility] Administration Topiramate 100 mg 01/21/18 10:00 01/27/18 21:17 Topamax - GT 100 mg BID [facility] Administration ASSESSMENT/PLAN: 27M nonverbal male at baseline from [facility] w/ pmhx of chronic aspiration, pneumonia, asthma, UTI, seizure, paraplegia, MR/DD, scoliosis admitted for sepsis 2/2 aspiration pna. #Sepsis secondary to aspiration pneumonia - Resolved. Previously given IV Zosyn. - CXR (01/22/18): Progressive congestive changes w/ persistently elevated R carla- diaphgram + some atelectatic changes #Persistent fever 2/2 likely pyelonephritis; Afebrile for the past 24 hours, WBC trending down 13.2<15.6. - Cont Rocephin 1 gm/D5 50 cc @ 100cc/hr (Day 3 of 10) - Urine cx: +lactose fermenting GNR >100,000 colonies - cont Tylenol 650 mg GT Q6H PRN for fevers - KUB (01/27/18): No change in appearance of pelvis since 06/17/16. NO sign of gross obstruction or fecal impaction. #Acute Hypoxic Respiratory Failure - currently stable on RA, O2 sat 99%. - Spoke to Dr. Bae at [facility], patient does not need home O2. - aspiration precautions #Hypotension; BP 120/68. stable. - monitor BP closely #Seizure d/o; no seizure activity today. - cont Topiramate 100 mg GT BID - cont Valium 5 mg GT QD #Asthma exacerbation -cont Duoneb 1 amp neb Q4 PRN #Anemia; Stable, Hgb 8.5 today from 9.0 yesterday. -No evidence of acute GI bleed -TIBC 163, Ferr 840.2 -continue to monitor CBC #Paraplegia: -reposition when needed for comfort #DVT ppx -Heparin 5000 units SQ TID #FEN .5NS @ 100cc/hr recheck electrolytes in AM Jevity 1.5 dispo [facility] upon d/c Off isolation precautions
[2018-01-28] MEDS: AMINO ACIDS/PROTEIN HYDROLYS 30 ML LIQUID.PKT PO SCH (08:47)
--- NOTE | 2018-01-28 08:58 | PN ---
Teaching Attending Note Name of Resident: Shanice Trejo ATTENDING PHYSICIAN STATEMENT I saw and evaluated the patient. I reviewed the resident's note and discussed the case with the resident. I agree with the resident's findings and plan as documented. SUBJECTIVE: Patient is comfortable with no acute distress, no shortness of breath, no nausea or vomiting. OBJECTIVE: Vital Signs Temperature 97.7 F 01/28/18 05:00 Pulse Rate 96 H 01/28/18 05:00 Respiratory Rate 20 01/28/18 05:00 Blood Pressure 111/64 01/28/18 05:00 O2 Sat by Pulse Oximetry (%) 97 01/27/18 20:56 CBCD WBC 12.7 K/mm3 (4.0-10.0) H 01/28/18 06:00 RBC 3.00 M/mm3 (4.00-5.60) L 01/28/18 06:00 Hgb 9.0 GM/dL (11.7-16.9) L 01/28/18 06:00 Hct 28.2 % (35.4-49) L 01/28/18 06:00 MCV 94.1 fl (80-96) 01/28/18 06:00 MCHC 31.8 g/dl (32.0-35.9) L 01/28/18 06:00 RDW 16.6 % (11.9-15.9) H 01/28/18 06:00 Plt Count 810 K/MM3 (134-434) H 01/28/18 06:00 MPV 7.7 fl (7.5-11.1) 01/28/18 06:00 CMP Sodium 140 mmol/L (136-145) 01/28/18 06:00 Potassium 4.5 mmol/L (3.5-5.1) 01/28/18 06:00 Chloride 109 mmol/L (98-107) H 01/28/18 06:00 Carbon Dioxide 25 mmol/L (21-32) 01/28/18 06:00 Anion Gap 6 (8-16) L 01/28/18 06:00 BUN 24 mg/dL (7-18) H 01/28/18 06:00 Creatinine 1.1 mg/dL (0.7-1.3) 01/28/18 06:00 Creat Clearance w eGFR > 60 (>60) 01/28/18 06:00 Random Glucose 94 mg/dL (74-106) 01/28/18 06:00 Calcium 8.8 mg/dL (8.5-10.1) 01/28/18 06:00 Total Bilirubin 0.1 mg/dL (0.2-1.0) L 01/28/18 06:00 AST 18 U/L (15-37) 01/28/18 06:00 ALT 17 U/L (12-78) 01/28/18 06:00 Alkaline Phosphatase 228 U/L (45-117) H 01/28/18 06:00 Total Protein 7.4 g/dl (6.4-8.2) 01/28/18 06:00 Albumin 2.1 g/dl (3.4-5.0) L 01/28/18 06:00 CARDIAC ENZYMES Creatine Kinase 60 IU/L (39-308) 01/14/18 15:47 Troponin I < 0.02 ng/ml (0.00-0.05) 01/14/18 15:47 Current Medications Generic Name Dose Route Start Last Admin Trade Name Freq PRN Reason Stop Dose Admin Acetaminophen 650 mg 01/22/18 11:46 01/26/18 06:05 Tylenol Oral Solution - GT 650 mg Q6H PRN Administration FEVER Amino Acids 30 ml 01/22/18 08:00 01/28/18 08:47 Prosource No Carb Liquid Pkt PO 30 ml DAILY@0800 [facility] Administration Baclofen 10 mg 01/21/18 14:00 01/28/18 06:10 Lioresal - GT 10 mg TID JULIO Administration Clobazam 15 mg 01/21/18 10:00 01/27/18 21:17 Onfi - PO 15 mg BID [facility] Administration Diazepam 5 mg 01/21/18 10:00 01/27/18 10:37 Valium - GT 5 mg DAILY@1000 J[facility] Administration Heparin Sodium (Porcine) 5,000 unit 01/21/18 14:00 01/28/18 06:10 Heparin - SQ 5,000 unit TID JULIO Administration Sodium Chloride 1,000 mls @ 50 mls/hr 01/24/18 14:09 01/27/18 15:24 1/2 Normal Saline IV 50 mls/hr ASDIR [facility] Administration Ceftriaxone Sodium 1 gm/ 50 mls @ 100 mls/hr 01/25/18 18:15 01/27/18 10:36 Dextrose IVPB 100 mls/hr DAILY [facility] Administration Multi-Ingredient Ointment 1 applic 01/27/18 12:00 01/27/18 21:15 Zinc Oxide TP 1 applic BID JULIO Administration Topiramate 100 mg 01/21/18 10:00 01/27/18 21:17 Topamax - GT 100 mg BID JULIO Administration Home Medications Medication Instructions Recorded Albuterol 0.083% Nebulizer Rani 1 amp NEB QID 01/14/18 [Ventolin 0.083% Nebulizer Soln -] Baclofen 10 mg GT TID 01/14/18 Bisacodyl Suppository [Dulcolax 10 mg RC DAILY PRN 01/14/18 Suppository -] Calcium Carbonate/Vitamin D3 1 each PO DAILY 01/14/18 [Oyster Shell Calcium-Vit D Tab] Clobazam [Onfi -] 15 mg GT BID 01/14/18 Diazepam 5 mg GT DAILY 01/14/18 Diazepam Rectal Gel [Diastat 10 mg RC PRN 01/14/18 *Rectal Gel*] Doxycycline Calcium [Vibramycin] 10 ml GT BID 01/14/18 Ferrous Sulfate 220 mg PEG BID 01/14/18 Lactulose 10 gm PEG BID 01/14/18 Loratadine 10 mg GT DAILY 01/14/18 Mometasone Furoate 17 gm NS BID 01/14/18 Polyethylene Glycol 3350 [Glycolax] 17 gm GT DAILY 01/14/18 Sennosides [Senna] 2 tab GT HS 01/14/18 Simethicone 40 mg PO BID 01/14/18 Sodium Chloride [Saline Mist] 2 spray NS QID 01/14/18 Sulfamethoxazole/Trimethoprim 20 ml GT HS 01/14/18 [Sulfatrim 800-160 mg/20 ml Ramona] Topiramate 100 mg GT BID 01/14/18 Microbiology 01/24/18 11:20 Urine - Urine Clean Catch Urine Culture - Final Klebsiella Pneumoniae - Esbl 01/24/18 08:25 Blood - Peripheral Venous Blood Culture - Preliminary NO GROWTH OBTAINED AFTER 96 HOURS, INCUBATION TO CONTINUE FOR 1 DAYS. 01/24/18 08:18 Blood - Peripheral Venous Blood Culture - Preliminary NO GROWTH OBTAINED AFTER 96 HOURS, INCUBATION TO CONTINUE FOR 1 DAYS. PE: per resident's note ASSESSMENT AND PLAN: 27 y/o male with h/o MR, scoliosis, PNA , aspiration , seizures and other medical problems who presented with SOB and wheezing. # S/P Acute hypoxic resp failure due to having Pneumonia resolved. completed treatment. # Acute UTI growing Klebsiella Pneumoniae - Esbl sensitive to Levaquin will continue with levaquin 10/21 # H xo f Seizure disorder: cont Onfi and topamax # SHONDA: improved. continue current feed and free water. Discharge the patient back to ID.
--- NOTE | 2018-01-28 09:17 | PN ---
Progress Note (short form) - Note Progress Note: Neurology HISTORY OF PRESENT ILLNESS: 27 y/o wheelchair quinn, nonverbal male from [facility] presents with difficulty breathing, rhonchi, and wheezing that began earlier afternoon of admssion. As per health aid at bedside, patient was given multiple nebulizer treatments which were minimally palliative at [facility]. Reported O2 saturation at [facility] was 94%. Patient was also hypothermic upon presentation at 92.3 degrees F. Admitted for sepsis management, ID following for UTI, PNA. Consulted for seizure like activity. He has h/o seizure and has been on TPM, Onfi, Valium as listed below. Had also been given loading dose of Keppra. Due to hypotension ( requiring Phenylephrine) his valium had been held in the morning. Thereafter partial seizure activity occured in evening and discussed with nurse to give valium dose as regularly scheduled. Since then has been seizure free. If recurrence, then keppra can be added, but has not occured while admitted. Has been off bp support, restarted on ceftriaxone 2/2 fevers, infection. Fevers have improved and patient possibly for discharge back to [facility] today. Resting comfortable, no seizure events. Neurologically stable. Active Medications Acetaminophen (Tylenol Oral Solution -) 650 mg GT Q6H PRN PRN Reason: FEVER Last Admin: 01/26/18 06:05 Dose: 650 mg Amino Acids (Prosource No Carb Liquid Pkt) 30 ml PO DAILY@0800 [facility] Last Admin: 01/28/18 08:47 Dose: 30 ml Baclofen (Lioresal -) 10 mg GT TID [facility] Last Admin: 01/28/18 06:10 Dose: 10 mg Clobazam (Onfi -) 15 mg PO BID [facility] Last Admin: 01/27/18 21:17 Dose: 15 mg Diazepam (Valium -) 5 mg GT DAILY@1000 [facility] Last Admin: 01/27/18 10:37 Dose: 5 mg Heparin Sodium (Porcine) (Heparin -) 5,000 unit SQ TID [facility] Last Admin: 01/28/18 06:10 Dose: 5,000 unit Sodium Chloride (1/2 Normal Saline) 1,000 mls @ 50 mls/hr IV ASDIR [facility] Last Admin: 01/27/18 15:24 Dose: 50 mls/hr Ceftriaxone Sodium 1 gm/ (Dextrose) 50 mls @ 100 mls/hr IVPB DAILY [facility] Last Admin: 01/27/18 10:36 Dose: 100 mls/hr Multi-Ingredient Ointment (Zinc Oxide) 1 applic TP BID [facility] Last Admin: 01/27/18 21:15 Dose: 1 applic Topiramate (Topamax -) 100 mg GT BID [facility] Last Admin: 01/27/18 21:17 Dose: 100 mg PHYSICAL EXAMINATION Vital Signs Period Temp Pulse Resp BP Sys/Saha Pulse Ox Last 24 Hr 97.7 F-99.1 F 96-105 16-20 100-133/54-64 97-97 GENERAL: Nonverbal, no acute distress. HEAD: normocephalic, atraumatic. EYES: Pupils equal, round and reactive to light, extraocular movements intact, sclera anicteric LUNGS: Course breath sounds and rhonchi, inspiratory and expiratory wheezes and crackles auscultated B/L HEART: Regular rate and rhythm, normal S1 and S2. No murmurs. ABDOMEN: Soft, nontender, not distended, normoactive bowel sounds, no guarding, no rebound. EXTREMITIES: 2+ radial pulses B/L. Unable to appreciate DP pulses. No peripheral edema. Neuro: Nonverbal, CN appear intact, not following commands but moves ext grossly , no abnormal movements noted CBCD WBC 12.7 K/mm3 (4.0-10.0) H 01/28/18 06:00 RBC 3.00 M/mm3 (4.00-5.60) L 01/28/18 06:00 Hgb 9.0 GM/dL (11.7-16.9) L 01/28/18 06:00 Hct 28.2 % (35.4-49) L 01/28/18 06:00 MCV 94.1 fl (80-96) 01/28/18 06:00 MCHC 31.8 g/dl (32.0-35.9) L 01/28/18 06:00 RDW 16.6 % (11.9-15.9) H 01/28/18 06:00 Plt Count 810 K/MM3 (134-434) H 01/28/18 06:00 MPV 7.7 fl (7.5-11.1) 01/28/18 06:00 CMP Sodium 140 mmol/L (136-145) 01/28/18 06:00 Potassium 4.5 mmol/L (3.5-5.1) 01/28/18 06:00 Chloride 109 mmol/L (98-107) H 01/28/18 06:00 Carbon Dioxide 25 mmol/L (21-32) 01/28/18 06:00 Anion Gap 6 (8-16) L 01/28/18 06:00 BUN 24 mg/dL (7-18) H 01/28/18 06:00 Creatinine 1.1 mg/dL (0.7-1.3) 01/28/18 06:00 Creat Clearance w eGFR > 60 (>60) 01/28/18 06:00 Calcium 8.8 mg/dL (8.5-10.1) 01/28/18 06:00 Total Bilirubin 0.1 mg/dL (0.2-1.0) L 01/28/18 06:00 AST 18 U/L (15-37) 01/28/18 06:00 ALT 17 U/L (12-78) 01/28/18 06:00 Alkaline Phosphatase 228 U/L (45-117) H 01/28/18 06:00 Total Protein 7.4 g/dl (6.4-8.2) 01/28/18 06:00 Albumin 2.1 g/dl (3.4-5.0) L 01/28/18 06:00 ASSESSMENT/PLAN: 27 y/o wheelchair quinn, nonverbal male from [facility] presents with difficulty breathing, rhonchi, and wheezing that began earlier afternoon of admssion. As per health aid at bedside, patient was given multiple nebulizer treatments which were minimally palliative at [facility]. Reported O2 saturation at [facility] was 94%. Patient was also hypothermic upon presentation at 92.3 degrees F. Admitted for sepsis management, ID following for UTI, PNA. Consulted for seizure like activity. He has h/o seizure and has been on TPM, Onfi, Valium as listed below. Had also been given loading dose of Keppra. Due to hypotension ( requiring Phenylephrine) his valium had been held in the morning. Thereafter partial seizure activity occured in evening and discussed with nurse to give valium dose as regularly scheduled. Since valium restarted, without seizure activity and stabilized. If recurs, then keppra can be added. 500mg twice daily, has not been needed Back on Ceftriaxone, fevers improved Monitor electrolytes Maintain adequate hydration Continue mgmt for infection which can precipitate events Has been stable neurologically, can continue current regiment of seizure medication
[2018-01-28] MEDS: CEFTRIAXONE 1 GM in DEXTROSE 5%-WATER - 50 ML IVPB SCH (10:19)
[2018-01-28] MEDS ORDERED: PT OWN MED DRAWER 7, Y5N ONE (10:24)
[2018-01-28] MEDS ORDERED: cloBAZam 10 MG TABLET PO SCH ×4 (10:45→22:00)
[2018-01-28] MEDS ORDERED: diazePAM 5 MG TABLET PO SCH (10:45)
[2018-01-28] MEDS ORDERED: diazePAM 5 MG TABLET GT SCH ×2 (10:51→11:13)
[2018-01-28] MEDS: ZINC OXIDE 20% TOPICAL OINTMENT 30 GM TUBE TP SCH (10:54)
[2018-01-28] MEDS: TOPIRAMATE 100 MG TABLET GT SCH (10:54)
[2018-01-28] MEDS ORDERED: LACTOBACILLUS ACIDOPHILUS 1 TABLET GT SCH (11:15)
[2018-01-28] MEDS ORDERED: diazePAM 5 MG TABLET GT ONE (11:43)
[2018-01-28] MEDS ORDERED: cloBAZam 10 MG TABLET PO ONE (11:45)
[2018-01-28] MEDS ORDERED: cloBAZam 10 MG TABLET GT ONE (12:15)
--- NOTE | 2018-01-28 14:50 | PN ---
Progress Note, Physician History of Present Illness: PULMONARY AWAKE,NON-VERBAL,-RESP DISTRESS - Current Medication List Current Medications: Active Medications Acetaminophen (Tylenol Oral Solution -) 650 mg GT Q6H PRN PRN Reason: FEVER Last Admin: 01/26/18 06:05 Dose: 650 mg Amino Acids (Prosource No Carb Liquid Pkt) 30 ml PO DAILY@0800 [facility] Last Admin: 01/28/18 08:47 Dose: 30 ml Baclofen (Lioresal -) 10 mg GT TID [facility] Last Admin: 01/28/18 13:29 Dose: 10 mg Clobazam (Onfi -) 15 mg GT BID [facility] Diazepam (Valium -) 5 mg GT DAILY [facility] Heparin Sodium (Porcine) (Heparin -) 5,000 unit SQ TID [facility] Last Admin: 01/28/18 13:29 Dose: 5,000 unit Lactobacillus Acidophilus (Bacid -) 1 tab GT DAILY [facility] Last Admin: 01/28/18 11:48 Dose: 1 tab Levofloxacin (Levaquin -) 500 mg GT DAILY@0600 [facility] Last Admin: 01/28/18 11:48 Dose: 500 mg Multi-Ingredient Ointment (Zinc Oxide) 1 applic TP BID [facility] Last Admin: 01/28/18 10:54 Dose: 1 applic Topiramate (Topamax -) 100 mg GT BID [facility] Last Admin: 01/28/18 10:54 Dose: 100 mg - Objective Vital Signs: Vital Signs Temperature 98.7 F 01/28/18 09:00 Pulse Rate 89 01/28/18 09:00 Respiratory Rate 20 01/28/18 09:00 Blood Pressure 105/66 01/28/18 09:00 O2 Sat by Pulse Oximetry (%) 97 01/27/18 20:56 Constitutional: Yes: Calm, Thin Eyes: Yes: WNL HENT: Yes: WNL Neck: Yes: WNL Cardiovascular: Yes: Regular Rate and Rhythm, S1, S2 Respiratory: Yes: Rhonchi (FEW RHONCHI) Gastrointestinal: Yes: Normal Bowel Sounds, Soft Extremities: Yes: WNL Edema: No Labs: CBC, BMP 01/28/18 06:00 01/28/18 06:00 INR, PTT INR Cancelled 01/14/18 15:47 Problem List - Problems (1) Seizure disorder Code(s): G40.909 - EPILEPSY, UNSP, NOT INTRACTABLE, WITHOUT STATUS EPILEPTICUS (2) PNA (pneumonia) Code(s): J18.9 - PNEUMONIA, UNSPECIFIED ORGANISM Qualifiers: Pneumonia type: aspiration pneumonia Aspiration pneumonia type: unspecified Laterality: unspecified laterality Lung location: unspecified part of lung Qualified Code(s): J69.0 - Pneumonitis due to inhalation of food and vomit (3) Sepsis Code(s): A41.9 - SEPSIS, UNSPECIFIED ORGANISM Qualifiers: Sepsis type: sepsis due to unspecified organism Qualified Code(s): A41.9 - Sepsis, unspecified organism (4) Asthma Code(s): J45.909 - UNSPECIFIED ASTHMA, UNCOMPLICATED (5) Cerebral palsy Code(s): G80.9 - CEREBRAL PALSY, UNSPECIFIED (6) Profound mental retardation Code(s): F73 - PROFOUND INTELLECTUAL DISABILITIES Assessment/Plan A/P Pneumonia UTI Septic Shock improved Cerebral Palsy Mental Retardation Seizure Disorder Asthma - antibiotics - inhaled bronchodilators - O2 to keep Spo2 >90% - aspiration precautions - enteral feeds - DVT prophylaxis DR ROSENTHAL
--- NOTE | 2018-01-28 14:59 | DS ---
Physical Exam: SUBJECTIVE: Patient seen and examined. As per nurse, no acute events overnight. OBJECTIVE: Vital Signs Period Temp Pulse Resp BP Sys/Saha Pulse Ox Last 24 Hr 97.7 F-99.1 F 89-105 16-20 100-133/54-66 97 PHYSICAL EXAM LABS Laboratory Results - last 24 hr 01/28/18 01/28/18 06:00 06:00 WBC 12.7 H RBC 3.00 L Hgb 9.0 L Hct 28.2 L MCV 94.1 MCH 29.9 MCHC 31.8 L RDW 16.6 H Plt Count 810 H MPV 7.7 Absolute Neuts (auto) 8.7 Neutrophils % 68.3 Lymphocytes % 23.3 D Monocytes % 6.1 Eosinophils % 1.8 Basophils % 0.5 Nucleated RBC % 0 Sodium 140 Potassium 4.5 Chloride 109 H Carbon Dioxide 25 Anion Gap 6 L BUN 24 H Creatinine 1.1 Creat Clearance w eGFR > 60 Random Glucose 94 Calcium 8.8 Total Bilirubin 0.1 L AST 18 ALT 17 Alkaline Phosphatase 228 H Total Protein 7.4 Albumin 2.1 L HOSPITAL COURSE: Pt sent to the hospital from [facility] for persistent symptoms of difficulty breathing, cough, and wheezing even after multiple nebulizer treatments. Upon the hospital admission, he was found to have a low body temperature which became a serious concern for aspiration pna. Due to pt's history of aspiration pneumonia and UTI, a chest xray, urine culture and blood culture were done to evaluate the source of infection. During his hospital stay , he had a witnessed seizure in which he was subsequently transferred to the ICU for close monitoring. He was then placed on his home seizure medications to prevent potential future seizure activity. Upon imaging, his chest xray was positive for increased lung markings in the left lower lobe which raised a high concern for aspiration pna in which he was treated with IV Zosyn. His urine culture was positive for bacteria, but was concurrently being treated with the IV Zosyn. Additionally, his blood culture was negative. Throughout the course of pts antibiotic treatment, he became afebrile and was transferred to the medical floor. After the end of his IV Zosyn treatment, his hospital course was further complicated later by persistent fevers, in which a urine culture was ordered again and came back positive for Klebsiella pneumoniae. Additionally, his blood work showed increased white blood cells. At this point he was diagnosed with a complicated UTI where he was treated with IV Rocephin, after which his temperature normalized for 2 days preceeding discharge and with a decrease in elevated WBC. He was discharged on Levaquin 500 mg GT for treatment of complicated UTI and sent back to [facility]. Date of Admission:01/14/18 Date of Discharge: 01/28/18 Minutes to complete discharge: 35 Discharge Summary Reason For Visit: SEPSIS Current Active Problems UTI (urinary tract infection) (Acute) Seizure disorder (Chronic) Condition: Improved - Instructions Diet, Activity, Other Instructions: You were admitted to the hospital for difficulty breathing and were diagnosed with an aspiration pneumonia in which you were treated with the IV antibiotics. During the antibiotic treatment, your symptoms improved. Your hospital course was later complicated by persistent fevers in which were you diagnosed with a complicated UTI. You were then treated with a different antibiotic, Rocephin. Upon discharge, you were instructed to take Levaquin and then brought back to [facility]. MEDICAL RECOMMENDATIONS Please continue your home medications. Please take Levaquin 500 mg GT once a day for 5 more days. Please take Bacid 1 tab GT once a day. CONSULT RECOMMENDATIONS Please follow up with your neurologist, Dr. Escobedo in 1 week. Please follow up with your press setter, Dr. Akhtar 1 week. If you experience persistent shortness of breath, chest pain, worsening fever/ chills, nausea/vomiting, please go to your nearest emergency room immediately. Referrals: Jose Maria Escobedo MD [Staff Physician] - 1 Week Cora Schumacher MD, MD [Primary Care Provider] - Daniel Akhtar MD, MD [Staff Physician] - 1 Week Disposition: CUSTODIAL FACILITY - Home Medications Comprehensive Discharge Medication List: Ambulatory Orders Albuterol 0.083% Nebulizer Rani [Ventolin 0.083% Nebulizer Soln -] 1 amp NEB QID 01/14/18 Baclofen 10 mg GT TID 01/14/18 Bisacodyl Suppository [Dulcolax Suppository -] 10 mg RC DAILY PRN 01/14/18 Calcium Carbonate/Vitamin D3 [Oyster Shell Calcium-Vit D Tab] 1 each PO DAILY Clobazam [Onfi -] 15 mg GT BID 01/14/18 Diazepam 5 mg GT DAILY 01/14/18 Diazepam Rectal Gel [Diastat Rectal Gel -] 10 mg RC PRN 01/14/18 Doxycycline Calcium [Vibramycin] 10 ml GT BID 01/14/18 Ferrous Sulfate 220 mg PEG BID 01/14/18 Lactulose 10 gm PEG BID 01/14/18 Loratadine 10 mg GT DAILY 01/14/18 Mometasone Furoate 17 gm NS BID 01/14/18 Polyethylene Glycol 3350 [Glycolax] 17 gm GT DAILY 01/14/18 Sennosides [Senna -] 2 tab GT HS 01/14/18 Simethicone 40 mg PO BID 01/14/18 Sodium Chloride [Saline Mist] 2 spray NS QID 01/14/18 Sulfamethoxazole/Trimethoprim [Sulfatrim 800-160 mg/20 ml Ramona] 20 ml GT HS 01/14 Topiramate 100 mg GT BID 01/14/18 Clobazam [Onfi -] 15 mg GT BID #28 tablet MDD 30 01/28/18 Diazepam [Valium] 5 mg GT DAILY tablet MDD 5 01/28/18 Lactobacillus Acidophilus [Bacid -] 1 tab GT DAILY tab 01/28/18 levoFLOXacin [Levaquin -] 500 mg GT DAILY@0600 5 Days tablet 01/28/18 This patient is new to me today: No Emergency Visit: No Critical Care patient: No - Discharge Referral Referred to [facility] No
[2018-01-28 15:06] VITALS: BP 117/74; PULSE 95; TEMP 97.4
[2018-01-28] MEDS ORDERED: cloBAZam 10 MG TABLET GT SCH (22:00)
== END 2018-01-28 19:05 | DRG 720 ==
LOC: JER 14:36 → JERBED 19:45 → J5S 22:13 → JICU 01-15 08:07 → J7W 01-21 13:15
PROVIDERS: ADMIT Internal Medicine; ATTEND Internal Medicine
PROC: 5A09457 Assistance with Respiratory Ventilation, 24-96 Consecutive Hours, Continuous Positive Airway Pressure (ICD-10-PCS; principal; 2018-01-15)
PROC: 3E0H76Z Introduction of Nutritional Substance into Lower GI, Via Natural or Artificial Opening (ICD-10-PCS; 2018-01-18)
DX: A41.89 Other specified sepsis (principal); G40.909 Epilepsy, unspecified, not intractable, without status epilepticus; F73 Profound intellectual disabilities; Q02 Microcephaly; G82.20 Paraplegia, unspecified; M41.9 Scoliosis, unspecified; R68.0 Hypothermia, not associated with low environmental temperature; D64.9 Anemia, unspecified; N39.0 Urinary tract infection, site not specified; J69.0 Pneumonitis due to inhalation of food and vomit; J45.909 Unspecified asthma, uncomplicated; E88.09 Other disorders of plasma-protein metabolism, not elsewhere classified; J96.02 Acute respiratory failure with hypercapnia; J96.01 Acute respiratory failure with hypoxia; R65.21 Severe sepsis with septic shock; E87.0 Hyperosmolality and hypernatremia; R00.0 Tachycardia, unspecified; I95.9 Hypotension, unspecified; N17.9 Acute kidney failure, unspecified; E86.0 Dehydration; R50.9 Fever, unspecified; G80.9 Cerebral palsy, unspecified; B96.1 Klebsiella pneumoniae [K. pneumoniae] as the cause of diseases classified elsewhere; Z93.1 Gastrostomy status; Z99.3 Dependence on wheelchair
CPT/HCPCS: 36415; 36600; 71045-TC-FY; 74018-TC-FY; 80048; 80053; 81003; 81015; 82272; 82550; 82553; 82728; 82803; 82962; 83540; 83550; 83605; 83735; 84100; 84443; 84466; 84484; 85025; 85027; 85044; 87040; 87070; 87081; 87086; 87186; 87205; 87324; 87420; 87449; 87804; 87899; 93005; 93010; 93970-TC; 94640; 94660; 99285-25; J0475; J1644; J7030; J7620

== ENCOUNTER 2018-07-23 16:33 | Inpatient (IN) | payer OTHER ==
[2018-07-23] MEDS ORDERED: SODIUM CHLORIDE 1,000 ML IV STA (16:49)
--- NOTE | 2018-07-23 17:00 | PDOC ---
History of Present Illness - General Chief Complaint: Seizure Stated Complaint: POSSIBLE SEIZURE Time Seen by Provider: 07/23/18 16:48 - History of Present Illness Initial Comments: 07/23/18 16:59 Mr. Guzman is a 28 yo male w/ pmh of chronic aspiration, pneumonia, asthma, PEG tube, seizure disorder, profound MR, microcephaly, paraplegia, scoliosis s/ p spinal fusion, R hip osteotomy, wheelchair bound at baseline who presents for evaluation after staff noted seizure. Patient is typically extremely well controlled on his seizure medications of keppra, topiramate, and phenobarbital. Patient reportedly typically conversant however unresponsive at presentation. Past History - Past Medical History Allergies/Adverse Reactions: Allergies Allergy/AdvReac Type Severity Reaction Status Date / Time No Known Drug Allergies Allergy Verified 01/14/18 14:46 Home Medications: Ambulatory Orders Albuterol 0.083% Nebulizer Rani [Ventolin 0.083% Nebulizer Soln -] 1 amp NEB QID 01/14/18 Baclofen 10 mg GT TID 01/14/18 Bisacodyl Suppository [Dulcolax Suppository -] 10 mg RC DAILY PRN 01/14/18 Calcium Carbonate/Vitamin D3 [Oyster Shell Calcium-Vit D Tab] 1 each PO DAILY Clobazam [Onfi -] 15 mg GT BID 01/14/18 Diazepam 5 mg GT DAILY 01/14/18 Diazepam Rectal Gel [Diastat Rectal Gel -] 10 mg RC PRN 01/14/18 Ferrous Sulfate 220 mg PEG BID 01/14/18 Lactulose 10 gm PEG BID 01/14/18 Loratadine 10 mg GT DAILY 01/14/18 Mometasone Furoate 17 gm NS BID 01/14/18 Polyethylene Glycol 3350 [Glycolax] 17 gm GT DAILY 01/14/18 Sennosides [Senna -] 2 tab GT HS 01/14/18 Simethicone 40 mg PO BID 01/14/18 Sodium Chloride [Saline Mist] 2 spray NS QID 01/14/18 Topiramate 100 mg GT BID 01/14/18 Clobazam [Onfi -] 15 mg GT BID #28 tablet MDD 30 01/28/18 Diazepam [Valium] 5 mg GT DAILY tablet MDD 5 01/28/18 Lactobacillus Acidophilus [Bacid -] 1 tab GT DAILY tab 01/28/18 levoFLOXacin [Levaquin -] 500 mg GT DAILY@0600 5 Days tablet 01/28/18 Anemia: No Asthma: Yes Cancer: No Cardiac Disorders: No CVA: No COPD: No CHF: No Dementia: No Diabetes: No GI Disorders: Yes (Gastrostomy tube) Disorders: Yes (UTI) HTN: No Hypercholesterolemia: No Liver Disease: No Psychiatric Problems: (Profound Mental Retardation) Seizures: Yes (Epilepsy) Thyroid Disease: No - Surgical History Abdominal Surgery: Yes (Gastrostomy tube) Appendectomy: No Cardiac Surgery: No Cholecystectomy: No Lung Surgery: No Neurologic Surgery: No Orthopedic Surgery: Yes (Spinal fusion, Osteotomy right hip) - Suicide/Smoking/Psychosocial Hx Smoking Status: No Smoking History: Never smoked Number of Cigarettes Smoked Daily: 0 Hx Alcohol Use: No Drug/Substance Use Hx: No Substance Use Type: None Hx Substance Use Treatment: No Review of Systems - Review of Systems Comments:: 07/23/18 17:02 Unable to obtain further. *Physical Exam - Physical Exam Comments: 07/23/18 17:02 GENERAL: +Patient obtunded / unresponsive HEAD: No signs of trauma, normocephalic, atraumatic EYES: PERRLA, EOMI, sclera anicteric, conjunctiva clear ENT: Auricles normal inspection, hearing grossly normal, nares patent, oropharynx clear without exudates. Moist mucosa NECK: Normal ROM, supple, no lymphadenopathy, JVD, or masses LUNGS: +Coarse lung sounds appreciated throughout. HEART: Regular rate and rhythm, normal S1 and S2, no murmurs, rubs or gallops, peripheral pulses normal and equal bilaterally. ABDOMEN: Soft, nontender, normoactive bowel sounds. No guarding, no rebound. No masses EXTREMITIES: Normal inspection, Normal range of motion, no edema. No clubbing or cyanosis. NEUROLOGICAL: Cranial nerves II through XII grossly intact. Normal speech, normal gait, no focal sensorimotor deficits SKIN: +Cold to touch. Dry, normal turgor, no rashes or lesions noted. ED Treatment Course - LABORATORY CBC & Chemistry Diagram: 07/23/18 17:10 07/23/18 17:10 - RADIOLOGY Radiology Studies Ordered: Category Date Time Status CHEST X-RAY PORTABLE* [RAD] Stat Radiology 07/23/18 16:48 Ordered Medical Decision Making - Medical Decision Making 07/23/18 17:24 Mr. Guzman is a 28 yo male w/ pmh as described who presents for evaluation of symptoms concerning for seizure/sepsis with additional hypothermia. Upon chart evaluation patient has had similar presentations in the past due to sepsis. Patient workup started with fluids, IV ABX, laron hugger, sepsis labs, portable CXR, and EKG. 07/23/18 18:38 Patient labs as below. Patient will continue receiving sepsis treatment with laron hugger. Admitting patient for further care. Laboratory Results - last 24 hr 07/23/18 07/23/18 07/23/18 17:10 17:10 17:10 WBC 5.8 RBC 3.65 L Hgb 12.6 Hct 37.3 D MCV 102.1 H MCH 34.4 H D MCHC 33.7 RDW 15.3 Plt Count 418 D MPV 8.8 D Absolute Neuts (auto) 3.5 Neutrophils % 60.3 Lymphocytes % 34.0 D Monocytes % 3.7 L Eosinophils % 1.7 Basophils % 0.3 Nucleated RBC % 0 PT with INR INR PTT (Actin FS) VBG pH 7.24 L* POC VBG pCO2 56.3 H POC VBG pO2 66.5 H D Mixed VBG HCO3 23.5 Sodium 136 Potassium 4.0 Chloride 104 Carbon Dioxide 25 Anion Gap 8 BUN 24 H Creatinine 1.1 Creat Clearance w eGFR > 60 Random Glucose 114 H Lactic Acid Calcium 9.0 Total Bilirubin 0.1 L AST 32 ALT 39 Alkaline Phosphatase 252 H Total Protein 7.2 Albumin 2.8 L 07/23/18 07/23/18 17:10 17:10 WBC RBC Hgb Hct MCV MCH MCHC RDW Plt Count MPV Absolute Neuts (auto) Neutrophils % Lymphocytes % Monocytes % Eosinophils % Basophils % Nucleated RBC % PT with INR 11.30 INR 0.96 PTT (Actin FS) 46.0 H VBG pH POC VBG pCO2 POC VBG pO2 Mixed VBG HCO3 Sodium Potassium Chloride Carbon Dioxide Anion Gap BUN Creatinine Creat Clearance w eGFR Random Glucose Lactic Acid 1.2 Calcium Total Bilirubin AST ALT Alkaline Phosphatase Total Protein Albumin 07/23/18 18:38 *DC/Admit/Observation/Transfer Diagnosis at time of Disposition: Seizure Hypothermia Qualifiers: Encounter type: initial encounter Qualified Code(s): T68.XXXA - Hypothermia, initial encounter Sepsis Qualifiers: Sepsis type: sepsis due to unspecified organism Qualified Code(s): A41.9 - Sepsis, unspecified organism - Discharge Dispostion Decision to Admit order: Yes - Referrals - Patient Instructions - Post Discharge Activity
[2018-07-23] MEDS ORDERED: ALBUTEROL SO4 2.5/IPRATROPIUM 0.5 INH SOL 3 ML VIAL.NEB. NEB ONE ×2 (17:02→18:25)
[2018-07-23] MEDS ORDERED: VANCOMYCIN 1 GRAM (PRE-DOCKED) 1,000 MG/250 ML BAG IVPB ONE ×2 (17:27→18:25)
[2018-07-23] MEDS ORDERED: PIPERACILLIN/TAZOB 3.375 GM 3.375 GM in DEXTROSE 5%-WATER - 50 ML IVPB ONE (17:27)
--- NOTE | 2018-07-23 17:27 | PDOC ---
Attending Attestation - ED Attending Attestation I have performed the following: I have examined & evaluated the patient, The case was reviewed & discussed with the resident, I agree w/resident's findings & plan, Exceptions are as noted - Physicial Exam PE: 07/23/18 17:27 on PE pt is postictal, rhonchorous crackles bilaterally right > left. contracted thin ext, abd soft nt peg CDI. heart reg bradycardia. Nuero nonverbal , not following commands. skin cool, no rash. 2 + dp/ pt pulses bilat. - Medical Decision Making 07/23/18 17:23 28 yo male ho MR, seizure disorder, nonverbal at [facility] here for witnessed siezure. pt had self limited seizure for 3 min. generalized shaking. has had frequent UTI, and aspiration pna. was admitted january last year for similar. PER EMS pt found postictal no meds given. noted to be hypothyermic pt is here with Aid who provides additional baseline history. no known trauma. pt is on keppra, topamax, and phenobarb for siezures. on PE pt is postictal, rhonchorous crackles bilaterally right > left. contracted thin ext, abd soft nt peg CDI. heart reg bradycardia. Nuero nonverbal , not following commands. skin cool, no rash. 2 + dp/ pt pulses bilat. differential sepsis from pna, aspiration pna, uti, pyelo, pt is hypothermia possible cause for bradycardia electrolyte abnormality, hypothyroid. plan broad spectrum abx, vanco zosy, duonebs for possible aspiration. laron hugger rewarming. tsh nuero consult. admit. cxr. <Ngozi Medina - Last Filed: 07/23/18 17:22> - HPI HPI: 07/23/18 18:12 Patient is a 22 year old male with a significant past medical history of chronic aspiration, pneumonia, asthma, UTI, seizure, paraplegia, MR/DD, scoliosis who presents to the ED with complaints of seizure that occurs just prior to ED arrival. As per EMS patient experiencing a witness seizure that lasted 3 minutes at SD, before being brought into the ED for further evaluation. EMS reports patient is normally well controlled on his seizure medication, as well awake, alert and interactive at baseline. As per EMS patient was found to be increasingly hypothermic on scene, stating he was less than 94 as well as hypotensive with his BP found to be 76/50. Denies chest pain, sob. Denies nausea, vomiting. Denies fevers, chills. Denies dysuria, hematuria. Denies constipation, Allergies: None Social history: [facility]. No smoking. No alcohol. No illicit drugs. Surgical history: None PMD: Not on staff. <Edin Huizar - Last Filed: 07/23/18 18:12> Heart Score/ECG Review #1 General ECG Interpretation: Normal Intervals, No acute ischemic changes Compared to previous ECG there are: Other (sinus bradycardia.) <Ngozi Medina - Last Filed: 07/23/18 17:22>
[2018-07-23 17:51] LABS: BASO % 0.3 % (0-2.0); EOS % 1.7 % (0-4.5); HEMATOCRIT 37.3 % (35.4-49); HEMOGLOBIN 12.6 GM/dL (11.7-16.9); MCH 34.4 pg (25.7-33.7); MCHC 33.7 g/dl (32.0-35.9); MEAN CELL VOLUME 102.1 fl (80-96); MEAN PLT VOLUME 8.8 fl (7.5-11.1); MONO % 3.7 % (3.8-10.2); NEUT % 60.3 % (42.8-82.8); PLATELET COUNT 418 K/MM3 (134-434); RBC 3.65 M/mm3 (4.00-5.60); RDW 15.3 % (11.9-15.9); VENOUS PC02 56.3 mmHg (38-52); VENOUS PH 7.24 (7.32-7.42); VENOUS PO2 66.5 mmHg (28-48); WHITE BLOOD COUNT 5.8 K/mm3 (4.0-10.0)
[2018-07-23 18:03] LABS: INR 0.96 (0.83-1.09); PROTHROMBIN TIME (PATIENT) 11.3 SEC (9.7-13.0)
[2018-07-23 18:24] LABS: ALBUMIN 2.8 g/dl (3.4-5.0); ALK PHOS 252 U/L (45-117); ANION GAP 8 MMOL/L (8-16); BILIRUBIN,TOTAL 0.1 mg/dL (0.2-1); BLOOD UREA NITROGEN 24 mg/dL (7-18); CHLORIDE 104 mmol/L (98-107); CO2 25 mmol/L (21-32); CREATININE 1.1 mg/dL (0.55-1.3); GLUCOSE,RANDOM 114 mg/dL (74-106); SGOT/AST 32 U/L (15-37); SGPT/ALT 39 U/L (13-61); SODIUM 136 mmol/L (136-145); TOT PROT 7.2 g/dl (6.4-8.2)
[2018-07-23] MEDS ORDERED: PIPERACILLIN/TAZOB 3.375 GM 3.375 GM/50 ML BAG IVPB ONE (18:26)
[2018-07-23 19:20] LABS: URINE APPEARANCE SLCLOUDY; URINE BILIRUBIN NEGATIVE (<2.0 mg/dL); URINE COLOR LTYELLOW; URINE GLUCOSE (UA) NEGATIVE (NEGATIVE); URINE KETONE NEGATIVE (NEGATIVE); URINE LEUK ESTERASE 3+ (NEGATIVE); URINE NITRITE NEGATIVE (NEGATIVE); URINE PROTEIN NEGATIVE (NEGATIVE); URINE UROBILINOGEN NEGATIVE mg/dL (0.2-1.0)
[2018-07-23 19:24] LABS: URINE BACTERIA RARE /hpf (NONE SEEN); URINE MUCUS RARE
--- NOTE | 2018-07-23 19:41 | PDOC ---
*Physical Exam - Vital Signs Last Vital Signs Temp Pulse Resp BP Pulse Ox 92.3 F L 70 19 110/60 98 07/23/18 19:03 07/23/18 19:03 07/23/18 19:03 07/23/18 19:03 07/23/18 19:03 <Patrick Harris - Last Filed: 07/23/18 21:45> - Vital Signs Last Vital Signs Temp Pulse Resp BP Pulse Ox 92.3 F L 70 19 110/60 98 07/23/18 19:03 07/23/18 19:03 07/23/18 19:03 07/23/18 19:03 07/23/18 19:03 <Evan Woodall - Last Filed: 07/30/18 08:54> ED Treatment Course - LABORATORY CBC & Chemistry Diagram: 07/23/18 17:10 07/23/18 17:10 - ADDITIONAL ORDERS Additional order review: Laboratory Results 07/23/18 07/23/18 07/23/18 17:10 17:10 17:10 PT with INR 11.30 INR 0.96 PTT (Actin FS) 46.0 H VBG pH POC VBG pCO2 POC VBG pO2 Mixed VBG HCO3 Sodium 136 Potassium 4.0 Chloride 104 Carbon Dioxide 25 Anion Gap 8 BUN 24 H Creatinine 1.1 Creat Clearance w eGFR > 60 Random Glucose 114 H Lactic Acid 1.2 Calcium 9.0 Total Bilirubin 0.1 L AST 32 ALT 39 Alkaline Phosphatase 252 H Troponin I < 0.02 Total Protein 7.2 Albumin 2.8 L TSH 3.28 D 07/23/18 17:10 PT with INR INR PTT (Actin FS) VBG pH 7.24 L* POC VBG pCO2 56.3 H POC VBG pO2 66.5 H D Mixed VBG HCO3 23.5 Sodium Potassium Chloride Carbon Dioxide Anion Gap BUN Creatinine Creat Clearance w eGFR Random Glucose Lactic Acid Calcium Total Bilirubin AST ALT Alkaline Phosphatase Troponin I Total Protein Albumin TSH 07/23/18 17:10 RBC 3.65 L MCV 102.1 H MCHC 33.7 RDW 15.3 MPV 8.8 D Neutrophils % 60.3 Lymphocytes % 34.0 D Monocytes % 3.7 L Eosinophils % 1.7 Basophils % 0.3 - Medications Given in the ED: ED Medications Discontinued Medications Generic Name Dose Route Start Last Admin Trade Name Freq PRN Reason Stop Dose Admin Albuterol/Ipratropium 1 amp 07/23/18 17:02 07/23/18 18:30 Duoneb - NEB 07/23/18 17:03 1 amp ONCE ONE Administration Sodium Chloride 1,000 mls @ 1,000 mls/hr 07/23/18 16:49 07/23/18 17:05 Normal Saline - IV 07/23/18 17:48 1,000 mls/hr ASDIR STA Administration Piperacillin Sod/Tazobactam 50 mls @ 100 mls/hr 07/23/18 17:27 07/23/18 18:30 Sod 3.375 gm/ Dextrose IVPB 07/23/18 17:56 100 mls/hr ONCE ONE Administration Protocol Vancomycin HCl 1,000 mg 07/23/18 17:27 07/23/18 18:35 Vancomycin (Pre-Docked) IVPB 07/23/18 17:28 1,000 mg ONCE ONE Administration Protocol <Patrick Harris - Last Filed: 07/23/18 21:45> - LABORATORY CBC & Chemistry Diagram: 07/29/18 09:00 07/29/18 09:00 - ADDITIONAL ORDERS Additional order review: Laboratory Results 07/23/18 07/23/18 07/23/18 17:51 17:10 17:10 PT with INR 11.30 INR 0.96 PTT (Actin FS) 46.0 H VBG pH POC VBG pCO2 POC VBG pO2 Mixed VBG HCO3 Sodium Potassium Chloride Carbon Dioxide Anion Gap BUN Creatinine Creat Clearance w eGFR Random Glucose Lactic Acid 1.2 Calcium Total Bilirubin AST ALT Alkaline Phosphatase Troponin I Total Protein Albumin TSH Urine Color Ltyellow Urine Appearance Slcloudy Urine pH 8.0 Ur Specific [place] 1.003 L Urine Protein Negative Urine Glucose (UA) Negative Urine Ketones Negative Urine Blood Negative Urine Nitrite Negative Urine Bilirubin Negative Urine Urobilinogen Negative Ur Leukocyte Esterase 3+ H Urine WBC (Auto) 13 Urine RBC (Auto) 1 Urine Bacteria Rare Urine Mucus Rare 07/23/18 07/23/18 17:10 17:10 PT with INR INR PTT (Actin FS) VBG pH 7.24 L* POC VBG pCO2 56.3 H POC VBG pO2 66.5 H D Mixed VBG HCO3 23.5 Sodium 136 Potassium 4.0 Chloride 104 Carbon Dioxide 25 Anion Gap 8 BUN 24 H Creatinine 1.1 Creat Clearance w eGFR > 60 Random Glucose 114 H Lactic Acid Calcium 9.0 Total Bilirubin 0.1 L AST 32 ALT 39 Alkaline Phosphatase 252 H Troponin I < 0.02 Total Protein 7.2 Albumin 2.8 L TSH 3.28 D Urine Color Urine Appearance Urine pH Ur Specific [place] Urine Protein Urine Glucose (UA) Urine Ketones Urine Blood Urine Nitrite Urine Bilirubin Urine Urobilinogen Ur Leukocyte Esterase Urine WBC (Auto) Urine RBC (Auto) Urine Bacteria Urine Mucus 07/23/18 17:10 RBC 3.65 L MCV 102.1 H MCHC 33.7 RDW 15.3 MPV 8.8 D Neutrophils % 60.3 Lymphocytes % 34.0 D Monocytes % 3.7 L Eosinophils % 1.7 Basophils % 0.3 - Medications Given in the ED: ED Medications Discontinued Medications Generic Name Dose Route Start Last Admin Trade Name Freq PRN Reason Stop Dose Admin Albuterol/Ipratropium 1 amp 07/23/18 17:02 07/23/18 18:30 Duoneb - NEB 07/23/18 17:03 1 amp ONCE ONE Administration Sodium Chloride 1,000 mls @ 1,000 mls/hr 07/23/18 16:49 07/23/18 17:05 Normal Saline - IV 07/23/18 17:48 1,000 mls/hr ASDIR STA Administration Piperacillin Sod/Tazobactam 50 mls @ 100 mls/hr 07/23/18 17:27 07/23/18 18:30 Sod 3.375 gm/ Dextrose IVPB 07/23/18 17:56 100 mls/hr ONCE ONE Administration Protocol Vancomycin HCl 1,000 mg 07/23/18 17:27 07/23/18 18:35 Vancomycin (Pre-Docked) IVPB 07/23/18 17:28 1,000 mg ONCE ONE Administration Protocol <Evan Woodall - Last Filed: 07/30/18 08:54> Medical Decision Making - Medical Decision Making 07/23/18 19:39 Patient is a 28M from [place] here today with sepsis, likely pneumonia and aspiration source. Given vanc/zosyn, cultures reviewed, levofloxacin added. MAP currently 55, giving warmed fluids. Will place central line. 07/23/18 20:12 After 1L warmed NS, patient's MAP now 74. Holding central line at this time, will continue to hydrate. Patient to go to ICU. D/w Dr Estrella. 07/23/18 21:45 Called to bedside after seizure activity. Activity lasted for less than 1 minute. No medications given. Vitals: MAP 84 HR 72 100% on NRB. D/w Dr Estrella, will keppra load in ICU. <Patrick Harris - Last Filed: 07/23/18 21:45> - Medical Decision Making 07/23/18 19:44 Pts bp dropped, currently hypotensive, will continue to hydrate. will place central line for possible pressors in ICU discussed with mother Florence Dave ([phone]) - she verbally consented to obtaining a central line over the phone. witnessed by myself and Dr. Harris 07/23/18 20:44 pts BP improved/stabilized with hydration will defer placing central line <Evan Woodall - Last Filed: 07/30/18 08:54> *DC/Admit/Observation/Transfer <Patrick Harris - Last Filed: 07/23/18 21:45> <Evan Woodall - Last Filed: 07/30/18 08:54> Diagnosis at time of Disposition: Seizure Hypothermia Qualifiers: Encounter type: initial encounter Qualified Code(s): T68.XXXA - Hypothermia, initial encounter Sepsis Qualifiers: Sepsis type: sepsis due to unspecified organism Qualified Code(s): A41.9 - Sepsis, unspecified organism
--- NOTE | 2018-07-23 19:46 | CONSULT ---
Consult Consult Specialty:: Pulm/CCM Referred by:: Dr. Harris Reason for Consultation:: hypothermia, s/p seizure, acute respiratory distress - History of Present Illness History of Present Illness: 28 yo M wheelchair bound [place] resident h/o severe MR non-verbal, seizure disorder, chronic aspirations and multiple pneumonias admitted to the ED s/p witnessed seizure. Per ED chart and aid at bedside, patient went to his daily program for the mentally retarded but was sent back due to lethargy. While in his room back at [place], he had a witnessed seizure with generalized shaking for ~ 3 mins and subsequently became unresponsive. In the ED, he's found to have temp of 90.1F, received 2L warmed NS, vanc, zosyn and duoneb treatment. Aid denies pt having cough, fever, chest pain, diarrhea, or any pain. 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 Pulmonary: Yes: Asthma, Pneumonia Gastrointestinal: Yes: Other (PEG tube) - Alcohol/Substance Use Hx Alcohol Use: No - Smoking History Smoking history: Never smoked Aproximately how many cigarettes per day: 0 Home Medications - Allergies Allergies/Adverse Reactions: Allergies Allergy/AdvReac Type Severity Reaction Status Date / Time No Known Drug Allergies Allergy Verified 01/14/18 14:46 - Home Medications Home Medications: Ambulatory Orders Bacitracin - [Bacitracin Topical Ointment -] 1 applic TP TID 07/23/18 Baclofen 10 mg GT TID 07/23/18 Calcium Carbonate/Vitamin D3 [Oyster Shell 500-Vit D3 200 Tb] 1 each GT BID 05/01 Clobazam [Onfi] 15 mg GT BID 07/23/18 Diazepam 0.5 mg GT DAILY 07/23/18 Doxycycline Oral Suspension [Vibramycin Oral Suspension -] 100 mg GT BID Ferrous Sulfate 220 mg GT BID 07/23/18 Lactose-Reduced Food/Fiber [Jevity] 75 ml GT DAILY 07/23/18 Lactulose (Oral Use) [Cephulac -] 20 gm GT BID 07/23/18 Loratadine 10 mg GT DAILY 07/23/18 Mometasone Furoate [Asmanex 110Mcg -] 2 inh IH BID 07/23/18 Polyethylene Glycol 3350 [Glycolax] 17 gm GT HS 07/23/18 Sennosides [Senna] 2 tab GT HS 07/23/18 Simethicone 40 mg GT BID 07/23/18 Sulfamethoxazole/Trimethoprim [Bactrim Ds Tablet] 1 each GT DAILY 07/23/18 Topiramate 100 mg GT BID 07/23/18 Review of Systems Unable to obtain ROS, reason: unresponsive Physical Exam Vital Signs: Vital Signs Temperature 92.3 F L 07/23/18 19:03 Pulse Rate 70 07/23/18 19:03 Respiratory Rate 07/23/18 19:03 Blood Pressure 110/60 07/23/18 19:03 O2 Sat by Pulse Oximetry (%) 98 07/23/18 19:03 Constitutional: Yes: Mild Distress, Thin, Other (unresponsive to painful stimuli and non-verbal at baseline) Eyes: Yes: Conjunctiva Clear Cardiovascular: Yes: Bradycardia, S1, S2 Respiratory: Yes: Rhonchi Gastrointestinal: Yes: Normal Bowel Sounds, Soft, Other (surgical scar, PEG tube ) Extremities: Yes: Other (contracted LE) Edema: No Neurological: Yes: Unresponsive Labs: CBC, BMP 07/23/18 17:10 07/23/18 17:10 Imaging - Results X-ray: Image Reviewed Assessment/Plan 28 yo M wheelchair bound [place] resident h/o severe MR non-verbal, seizure disorder, chronic aspirations and multiple pneumonias admitted to the ED s/p witnessed seizure and now transferred to ICU for possible sepsis w/ hypothermia and unresponsiveness s/p seizure. Neuro: Post-ictal state s/p witnessed seizure 1. seizure likely triggered by infection 2. O2, IV thiamine 100mg and D50 3. restart patient on home AED once mentation back to baseline 4. keppra 1g IV once if breakthrough occurs 5. neuro checks, seizure precaution, monitor airway 6. neurology consult ID hypothermia, sepsis 2/2 ?aspiration pneumonia cannot r/o UTI 1. cont. Zosyn (used in previous admissions for aspiration pna) and levaquin ( UX grew ESBL sensitive to levaquin) 2. cont. laron hugger, monitor temps 3. f/u cultures, RSV swab 4. repeat CXR Pulm: Acute respiratory failure 2/2 ?aspiration pneumonia 1. cont. supplemental O2 maintain SpO2>92% 2. solumedrol 40mg once then daily 3. Duonebs TID standing and Q4H PRN GI: 1. resume feed thru G tube ppx: scds Dispo: admit to ICU Linwood Estrella PGY3 ICU resident Visit type - Emergency Visit Emergency Visit: Yes ED Registration Date: 07/23/18 Care time: The patient presented to the Emergency Department on the above date and was hospitalized for further evaluation of their emergent condition. - New Patient This patient is new to me today: Yes Date on this admission: 07/23/18 - Critical Care Critical Care patient: Yes Total Critical Care Time (in minutes): 45 Critical Care Statement: The care of this patient involved high complexity decision making to prevent further life threatening deterioration of the patient 's condition and/or to evaluate & treat vital organ system(s) failure or risk of failure.
--- NOTE | 2018-07-23 20:42 | HP ---
Admitting History and Physical - Admission Chief Complaint: Hypothermia History of Present Illness: This is a 28 y/o young man from the [facility] with a PMHx of: Seizure Disorder, Microcephaly, Profound MR, Paraplegia, Scoliosis. Who presents to the ED for hypothermia and lethargy. Patient's supervisor [employer] was at bedside reports that the patient was sent back from program because he looked ill appearing. She reports that he felt cold and his temperature was in the low 90's. On arrival to the ED patient was found to have a rectal temp of 90.1, P 48, R 20 BP 104/59 Jesus Alberto Hugger was placed core temp now 93.4. Chest Xray image- R-sided infiltrate. Started on Vancomycin and Zosyn for Aspiration Pneumonia. Bolus NS given. Patient will be admitted to ICU for Septic Shock likely secondary to Aspiration Pneumonia. 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 (Profound MR) Pulmonary: Yes: Asthma, Pneumonia Gastrointestinal: Yes: Other (PEG tube) - Past Surgical History Additional Past Surgical History: PEG - Smoking History Smoking history: Never smoked Aproximately how many cigarettes per day: 0 - Alcohol/Substance Use Hx Alcohol Use: No History of Substance Use: reports: None - Social History Usual Living Arrangement: Yes: Longterm ADL: Support Services History of Recent Travel: No Home Medications - Allergies Allergies/Adverse Reactions: Allergies Allergy/AdvReac Type Severity Reaction Status Date / Time No Known Drug Allergies Allergy Verified 01/14/18 14:46 - Home Medications Home Medications: Ambulatory Orders Bacitracin - [Bacitracin Topical Ointment -] 1 applic TP TID 07/23/18 Baclofen 10 mg GT TID 07/23/18 Calcium Carbonate/Vitamin D3 [Oyster Shell 500-Vit D3 200 Tb] 1 each GT BID 05/01 Clobazam [Onfi] 15 mg GT BID 07/23/18 Diazepam 0.5 mg GT DAILY 07/23/18 Doxycycline Oral Suspension [Vibramycin Oral Suspension -] 100 mg GT BID Ferrous Sulfate 220 mg GT BID 07/23/18 Lactose-Reduced Food/Fiber [Jevity] 75 ml GT DAILY 07/23/18 Lactulose (Oral Use) [Cephulac -] 20 gm GT BID 07/23/18 Loratadine 10 mg GT DAILY 07/23/18 Mometasone Furoate [Asmanex 110Mcg -] 2 inh IH BID 07/23/18 Polyethylene Glycol 3350 [Glycolax] 17 gm GT HS 07/23/18 Sennosides [Senna] 2 tab GT HS 07/23/18 Simethicone 40 mg GT BID 07/23/18 Sulfamethoxazole/Trimethoprim [Bactrim Ds Tablet] 1 each GT DAILY 07/23/18 Topiramate 100 mg GT BID 07/23/18 Family Disease History - Family Disease History Family History: Unable to Obtain Review of Systems Unable to obtain ROS, reason: Profound MR Physical Examination Vital Signs: Vital Signs Temperature 93.1 F L 07/23/18 20:26 Pulse Rate 76 07/23/18 20:26 Respiratory Rate 20 07/23/18 20:26 Blood Pressure 113/58 L 07/23/18 20:26 O2 Sat by Pulse Oximetry (%) 99 07/23/18 20:26 Constitutional: Yes: No Distress, Calm, Other (Unresponsive) Eyes: Yes: Conjunctiva Clear, PERRL HENT: Yes: Other (Microcephaly) Neck: Yes: WNL, Supple, Trachea Midline Cardiovascular: Yes: Regular Rate and Rhythm, S1, S2 Respiratory: Yes: Rhonchi (Coarse, throughout), Wheezes, Other (on NRB) Gastrointestinal: Yes: Soft, Distention, Hypoactive Bowel Sounds, Other (PEG- intact) Renal/: Yes: Incontinence Breast(s): Yes: WNL Edema: No Peripheral Pulses WNL: Yes Integumentary: Yes: Erythema (groin), Pressure Ulcer (Stage I Coccyx), Rash ( groin) Neurological: Yes: Pre-Existing Deficit, Unresponsive Labs: CBC, BMP 07/23/18 17:10 07/23/18 17:10 Laboratory Results - last 24 hr 07/23/18 07/23/18 07/23/18 17:10 17:10 17:10 WBC 5.8 RBC 3.65 L Hgb 12.6 Hct 37.3 D MCV 102.1 H MCH 34.4 H D MCHC 33.7 RDW 15.3 Plt Count 418 D MPV 8.8 D Absolute Neuts (auto) 3.5 Neutrophils % 60.3 Lymphocytes % 34.0 D Monocytes % 3.7 L Eosinophils % 1.7 Basophils % 0.3 Nucleated RBC % 0 PT with INR INR PTT (Actin FS) VBG pH 7.24 L* POC VBG pCO2 56.3 H POC VBG pO2 66.5 H D Mixed VBG HCO3 23.5 Sodium 136 Potassium 4.0 Chloride 104 Carbon Dioxide 25 Anion Gap 8 BUN 24 H Creatinine 1.1 Creat Clearance w eGFR > 60 Random Glucose 114 H Lactic Acid Calcium 9.0 Total Bilirubin 0.1 L AST 32 ALT 39 Alkaline Phosphatase 252 H Troponin I < 0.02 Total Protein 7.2 Albumin 2.8 L TSH 3.28 D Urine Color Urine Appearance Urine pH Ur Specific [place] Urine Protein Urine Glucose (UA) Urine Ketones Urine Blood Urine Nitrite Urine Bilirubin Urine Urobilinogen Ur Leukocyte Esterase Urine WBC (Auto) Urine RBC (Auto) Urine Bacteria Urine Mucus Influenza A (Rapid) Influenza B (Rapid) 07/23/18 07/23/18 07/23/18 17:10 17:10 17:51 WBC RBC Hgb Hct MCV MCH MCHC RDW Plt Count MPV Absolute Neuts (auto) Neutrophils % Lymphocytes % Monocytes % Eosinophils % Basophils % Nucleated RBC % PT with INR 11.30 INR 0.96 PTT (Actin FS) 46.0 H VBG pH POC VBG pCO2 POC VBG pO2 Mixed VBG HCO3 Sodium Potassium Chloride Carbon Dioxide Anion Gap BUN Creatinine Creat Clearance w eGFR Random Glucose Lactic Acid 1.2 Calcium Total Bilirubin AST ALT Alkaline Phosphatase Troponin I Total Protein Albumin TSH Urine Color Ltyellow Urine Appearance Slcloudy Urine pH 8.0 Ur Specific [place] 1.003 L Urine Protein Negative Urine Glucose (UA) Negative Urine Ketones Negative Urine Blood Negative Urine Nitrite Negative Urine Bilirubin Negative Urine Urobilinogen Negative Ur Leukocyte Esterase 3+ H Urine WBC (Auto) 13 Urine RBC (Auto) 1 Urine Bacteria Rare Urine Mucus Rare Influenza A (Rapid) Influenza B (Rapid) 07/23/18 18:55 WBC RBC Hgb Hct MCV MCH MCHC RDW Plt Count MPV Absolute Neuts (auto) Neutrophils % Lymphocytes % Monocytes % Eosinophils % Basophils % Nucleated RBC % PT with INR INR PTT (Actin FS) VBG pH POC VBG pCO2 POC VBG pO2 Mixed VBG HCO3 Sodium Potassium Chloride Carbon Dioxide Anion Gap BUN Creatinine Creat Clearance w eGFR Random Glucose Lactic Acid Calcium Total Bilirubin AST ALT Alkaline Phosphatase Troponin I Total Protein Albumin TSH Urine Color Urine Appearance Urine pH Ur Specific [place] Urine Protein Urine Glucose (UA) Urine Ketones Urine Blood Urine Nitrite Urine Bilirubin Urine Urobilinogen Ur Leukocyte Esterase Urine WBC (Auto) Urine RBC (Auto) Urine Bacteria Urine Mucus Influenza A (Rapid) Negative Influenza B (Rapid) Negative Intake & Output 07/20/18 07/21/18 07/22/18 07/23/18 23:59 23:59 23:59 23:59 Weight 40.823 kg Last Vital Signs Temp Pulse Resp BP Pulse Ox 93.1 F L 76 20 113/58 L 99 07/23/18 20:26 07/23/18 20:26 07/23/18 20:26 07/23/18 20:26 07/23/18 20:26 Imaging - Results Chest X-ray: Image Reviewed EKG: Image Reviewed Problem List - Problems (1) Severe sepsis Assessment/Plan: Likely secondary to Aspiration Pneumonia [id number] 2 qSOFA 1 Blood Cultures-pending Urine Culture-pending Sputum Culture-pending Will get Urine Legionella Chest Xray image- patchy infiltrates R- side Sepsis Criteria Met III: T max 90.1, P 48, BUN 24 NS bolus x1 given in ED for fluid resuscitation Will continue gentle IVF Vancomcyin, Zosyn, and Levofloxacin given for MDRS and Pseudomonal coverage, will continue pending culture results Appreciate ID consult Appreciate Pulm/CC consult Monitor CBC, BMP ABG-pending EKG- showed SB with arrhythmia- likely due to Sepsis Continue caridiac monitoring Maintain MAP > 65 Continue Jesus Alberto Hugger for hypothermia Check Rectal Temp Q2h Consider Pressors and Central Line if condition worsens Code(s): A41.9 - SEPSIS, UNSPECIFIED ORGANISM; R65.20 - SEVERE SEPSIS WITHOUT SEPTIC SHOCK (2) PNA (pneumonia) Assessment/Plan: See above Code(s): J18.9 - PNEUMONIA, UNSPECIFIED ORGANISM Qualifiers: Pneumonia type: aspiration pneumonia Aspiration pneumonia type: unspecified Laterality: unspecified laterality Lung location: unspecified part of lung Qualified Code(s): J69.0 - Pneumonitis due to inhalation of food and vomit (3) Asthma Assessment/Plan: Duonenbs prn Continue home meds Appreciate Pulm consult Code(s): J45.909 - UNSPECIFIED ASTHMA, UNCOMPLICATED (4) Seizure disorder Assessment/Plan: Stable Continue home meds Seizure precautions Monitor vitals Code(s): G40.909 - EPILEPSY, UNSP, NOT INTRACTABLE, WITHOUT STATUS EPILEPTICUS (5) Profound mental retardation Assessment/Plan: Will continue to monitor and treat with interventions accordingly Code(s): F73 - PROFOUND INTELLECTUAL DISABILITIES (6) Cerebral palsy Assessment/Plan: Monitor accordingly Code(s): G80.9 - CEREBRAL PALSY, UNSPECIFIED Assessment/Plan This is a 28 y/o young man from the [facility] presents to the ED with hypothermia, lethargy. Admitted for Severe Sepsis, Septic Shock, Aspiration Pneumonia for further evaluation of their emergent condition. Plan: See Problem List FEN NS bolus prn maintain MAP > 65 Replete lytes prn Tube Feedings as tolerated DVT ppx SCDs Heparin SQ Code Status: Full Code Dispo: Requires Inpatient Care Visit type - Emergency Visit Emergency Visit: Yes ED Registration Date: 07/23/18 Care time: The patient presented to the Emergency Department on the above date and was hospitalized for further evaluation of their emergent condition. - New Patient This patient is new to me today: Yes Date on this admission: 07/23/18 - Critical Care Critical Care patient: Yes Total Critical Care Time (in minutes): 35 Critical Care Statement: The care of this patient involved high complexity decision making to prevent further life threatening deterioration of the patient 's condition and/or to evaluate & treat vital organ system(s) failure or risk of failure.
[2018-07-23] MEDS ORDERED: DEXTROSE 50%-WATER - 25 GM/50 ML VIAL IVPUSH ONE (21:00)
[2018-07-23] MEDS ORDERED: THIAMINE HCL 200 MG/2 ML VIAL IVPB ONE (21:00)
[2018-07-23] MEDS ORDERED: methylPREDNISolone NA SUCC 40 MG/1 ML VIAL IVPUSH ONE (21:14)
[2018-07-23] MEDS ORDERED: ALBUTEROL SO4 2.5/IPRATROPIUM 0.5 INH SOL 3 ML VIAL.NEB. NEB PRN (21:15)
[2018-07-23] MEDS ORDERED: LORazepam 2 MG/ML SDV VIAL ONE (21:40)
[2018-07-23] MEDS ORDERED: levETIRAcetam 500 MG/5 ML INJECTION VIAL IVPB ONE (21:50)
[2018-07-23] MEDS ORDERED: PT OWN MED DRAWER 7, Y5N ONE (22:39)
[2018-07-23 22:41] LABS: URINE APPEARANCE CLOUDY; URINE BILIRUBIN NEGATIVE (<2.0 mg/dL); URINE COLOR LTYELLOW; URINE GLUCOSE (UA) NEGATIVE (NEGATIVE); URINE KETONE NEGATIVE (NEGATIVE); URINE LEUK ESTERASE 3+ (NEGATIVE); URINE NITRITE NEGATIVE (NEGATIVE); URINE PROTEIN NEGATIVE (NEGATIVE); URINE UROBILINOGEN NEGATIVE mg/dL (0.2-1.0)
[2018-07-23 22:46] LABS: EPI CELLS RARE /HPF (FEW); URINE BACTERIA RARE /hpf (NONE SEEN); URINE MUCUS RARE; YEAST FEW
[2018-07-23 22:54] LABS: ARTERIAL BLD GAS O2 SATURATION 99.2 % (90-98.9); ARTERIAL BLOOD GAS BASE EXCESS -2.6 meq/l (-2-2); ARTERIAL BLOOD GAS PCO2 48.6 mmHg (35-45); CARBOXYHEMOGLOBIN 0.4 gm% (0.5-2.0)
[2018-07-23 22:56] LABS: ALLENS TEST POSITIVE
[2018-07-23] MEDS: LACTULOSE 20 GM/30 ML UDC (FOR ORAL USE ONLY) GT SCH (22:56)
[2018-07-23] MEDS: cloBAZam 10 MG TABLET GT SCH (22:57)
[2018-07-23] MEDS: CHLORHEXIDINE GLUCONATE 4% CLEANSER FOR DECOLONIZATION TP SCH (22:58)
[2018-07-23] MEDS: TOPIRAMATE 100 MG TABLET GT SCH (22:58)
[2018-07-23] MEDS: MUPIROCIN 2% TOPICAL OINTMENT FOR DECOLONIZATION NS SCH (22:58)
[2018-07-23] MEDS ORDERED: DEXTROSE 50%-WATER 25 GM/50 ML DISP.SYRIN ONE (23:10)
[2018-07-23] MEDS: SIMETHICONE 40 MG/0.6 ML BOTTLE GT SCH (23:11)
[2018-07-23] MEDS: MOMETASONE FUROATE 110 MCG/IH INHALER IH SCH (23:11)
[2018-07-24] MEDS ORDERED: SODIUM CHLORIDE 1,000 ML IV STA (00:10)
[2018-07-24] MEDS ORDERED: DEXTROSE 5%-WATER - 50 ML IVPB ONE ×3 (01:20→17:13)
[2018-07-24] MEDS ORDERED: PIPERACILLIN/TAZOBACTAM 3.375 GM VIAL IVPB ONE ×3 (01:20→17:13)
[2018-07-24] MEDS ORDERED: PIPERACILLIN/TAZOB 3.375 GM 3.375 GM in DEXTROSE 5%-WATER - 50 ML IVPB ONE ×2 (02:00→10:00)
[2018-07-24 06:30] LABS: BASO % 0.1 % (0-2.0); EOS % 1.5 % (0-4.5); HEMATOCRIT 35.2 % (35.4-49); HEMOGLOBIN 11.4 GM/dL (11.7-16.9); LYMPH % 17.8 % (8-40); MCH 33.4 pg (25.7-33.7); MCHC 32.3 g/dl (32.0-35.9); MEAN CELL VOLUME 103.7 fl (80-96); MEAN PLT VOLUME 8.5 fl (7.5-11.1); MONO % 7.7 % (3.8-10.2); NEUT % 72.9 % (42.8-82.8); PLATELET COUNT 421 K/MM3 (134-434); RDW 15.2 % (11.9-15.9); WHITE BLOOD COUNT 6.5 K/mm3 (4.0-10.0)
[2018-07-24 07:16] LABS: ALBUMIN 2.5 g/dl (3.4-5.0); ALK PHOS 219 U/L (45-117); ANION GAP 5 MMOL/L (8-16); BILIRUBIN,TOTAL 0.2 mg/dL (0.2-1); BLOOD UREA NITROGEN 20 mg/dL (7-18); CHLORIDE 115 mmol/L (98-107); CO2 24 mmol/L (21-32); CREATININE 1.2 mg/dL (0.55-1.3); GLUCOSE,RANDOM 69 mg/dL (74-106); MAGNESIUM 2.1 mg/dL (1.8-2.4); POTASSIUM 5.1 mmol/L (3.5-5.1); SGOT/AST 23 U/L (15-37); SGPT/ALT 34 U/L (13-61); SODIUM 143 mmol/L (136-145); TOT PROT 6.3 g/dl (6.4-8.2)
[2018-07-24] MEDS: ALBUTEROL SO4 2.5/IPRATROPIUM 0.5 INH SOL 3 ML VIAL.NEB. NEB SCH ×4 (07:30→21:26)
[2018-07-24] MEDS ORDERED: DEXTROSE 5%-NORMAL SALINE 1,000 ML IV SCH (07:30)
[2018-07-24] MEDS ORDERED: PT OWN MED DRAWER 7, Y5N ONE (09:03)
[2018-07-24] MEDS: methylPREDNISolone NA SUCC 40 MG/1 ML VIAL IVPUSH SCH (09:13)
[2018-07-24] MEDS: SIMETHICONE 40 MG/0.6 ML BOTTLE GT SCH ×2 (09:13→21:28)
[2018-07-24] MEDS: LACTULOSE 20 GM/30 ML UDC (FOR ORAL USE ONLY) GT SCH ×2 (09:14→21:27)
[2018-07-24] MEDS: diazePAM 5 MG TABLET GT SCH (09:15)
[2018-07-24] MEDS: TOPIRAMATE 100 MG TABLET GT SCH ×2 (09:16→21:27)
[2018-07-24] MEDS: MUPIROCIN 2% TOPICAL OINTMENT FOR DECOLONIZATION NS SCH ×2 (09:17→21:28)
--- NOTE | 2018-07-24 09:27 | PN ---
Physical Exam: SUBJECTIVE: Patient seen and examined in the ICU. OBJECTIVE: he is hypthermic but improving Vital Signs Period Temp Pulse Resp BP Sys/Saha Pulse Ox Last 24 Hr 90.1 F-97.2 F 48-102 14-20 82-113/42-74 96-100 GENERAL: profound MR HEAD: microcephaly EYES: conjunctiva clear. No ptosis. ENT: Ears normal, nares patent, oropharynx clear without exudates,dry mucous membranes. NECK: Trachea midline, full range of motion, supple. LUNGS: congestion of upper and lower lobes. on supplemental oxygen HEART: Regular rate and rhythm, S1, S2 without murmur, rub or gallop. ABDOMEN: +peg tube EXTREMITIES: contracted, deformity NEUROLOGICAL: profound MR Laboratory Results - last 24 hr 07/23/18 07/23/18 07/23/18 17:10 17:10 17:10 WBC 5.8 RBC 3.65 L Hgb 12.6 Hct 37.3 D MCV 102.1 H MCH 34.4 H D MCHC 33.7 RDW 15.3 Plt Count 418 D MPV 8.8 D Absolute Neuts (auto) 3.5 Neutrophils % 60.3 Lymphocytes % 34.0 D Monocytes % 3.7 L Eosinophils % 1.7 Basophils % 0.3 Nucleated RBC % 0 PT with INR INR PTT (Actin FS) Anticoagulation Therapy Puncture Site Patient Temperature ABG pH ABG pCO2 at Pt Temp ABG pO2 at Pt Temp ABG HCO3 ABG O2 Sat (Measured) ABG O2 Content ABG Base Excess Eliezer Test VBG pH 7.24 L* POC VBG pCO2 56.3 H POC VBG pO2 66.5 H D Mixed VBG HCO3 23.5 Carboxyhemoglobin Methemoglobin O2 Delivery Device Oxygen Flow Rate Vent Mode Vent Rate Mechanical Rate Pressure Support Vent Sodium 136 Potassium 4.0 Chloride 104 Carbon Dioxide 25 Anion Gap 8 BUN 24 H Creatinine 1.1 Creat Clearance w eGFR > 60 Random Glucose 114 H Lactic Acid Calcium 9.0 Phosphorus Magnesium Total Bilirubin 0.1 L AST 32 ALT 39 Alkaline Phosphatase 252 H Troponin I < 0.02 Total Protein 7.2 Albumin 2.8 L TSH 3.28 D Urine Color Urine Appearance Urine pH Ur Specific [place] Urine Protein Urine Glucose (UA) Urine Ketones Urine Blood Urine Nitrite Urine Bilirubin Urine Urobilinogen Ur Leukocyte Esterase Urine WBC (Auto) Urine RBC (Auto) Ur Epithelial Cells Urine Bacteria Urine Mucus Urine Yeast Influenza A (Rapid) Influenza B (Rapid) 07/23/18 07/23/18 07/23/18 17:10 17:10 17:51 WBC RBC Hgb Hct MCV MCH MCHC RDW Plt Count MPV Absolute Neuts (auto) Neutrophils % Lymphocytes % Monocytes % Eosinophils % Basophils % Nucleated RBC % PT with INR 11.30 INR 0.96 PTT (Actin FS) 46.0 H Anticoagulation Therapy Puncture Site Patient Temperature ABG pH ABG pCO2 at Pt Temp ABG pO2 at Pt Temp ABG HCO3 ABG O2 Sat (Measured) ABG O2 Content ABG Base Excess Eliezer Test VBG pH POC VBG pCO2 POC VBG pO2 Mixed VBG HCO3 Carboxyhemoglobin Methemoglobin O2 Delivery Device Oxygen Flow Rate Vent Mode Vent Rate Mechanical Rate Pressure Support Vent Sodium Potassium Chloride Carbon Dioxide Anion Gap BUN Creatinine Creat Clearance w eGFR Random Glucose Lactic Acid 1.2 Calcium Phosphorus Magnesium Total Bilirubin AST ALT Alkaline Phosphatase Troponin I Total Protein Albumin TSH Urine Color Ltyellow Urine Appearance Slcloudy Urine pH 8.0 Ur Specific [place] 1.003 L Urine Protein Negative Urine Glucose (UA) Negative Urine Ketones Negative Urine Blood Negative Urine Nitrite Negative Urine Bilirubin Negative Urine Urobilinogen Negative Ur Leukocyte Esterase 3+ H Urine WBC (Auto) 13 Urine RBC (Auto) 1 Ur Epithelial Cells Urine Bacteria Rare Urine Mucus Rare Urine Yeast Influenza A (Rapid) Influenza B (Rapid) 07/23/18 07/23/18 07/23/18 17:51 18:55 22:13 WBC RBC Hgb Hct MCV MCH MCHC RDW Plt Count MPV Absolute Neuts (auto) Neutrophils % Lymphocytes % Monocytes % Eosinophils % Basophils % Nucleated RBC % PT with INR INR PTT (Actin FS) Anticoagulation Therapy Puncture Site Patient Temperature ABG pH ABG pCO2 at Pt Temp ABG pO2 at Pt Temp ABG HCO3 ABG O2 Sat (Measured) ABG O2 Content ABG Base Excess Eliezer Test VBG pH POC VBG pCO2 POC VBG pO2 Mixed VBG HCO3 Carboxyhemoglobin Methemoglobin O2 Delivery Device Oxygen Flow Rate Vent Mode Vent Rate Mechanical Rate Pressure Support Vent Sodium Potassium Chloride Carbon Dioxide Anion Gap BUN Creatinine Creat Clearance w eGFR Random Glucose Lactic Acid 1.2 Calcium Phosphorus Magnesium Total Bilirubin AST ALT Alkaline Phosphatase Troponin I Total Protein Albumin TSH Urine Color Ltyellow Urine Appearance Cloudy Urine pH 7.0 Ur Specific [place] 1.003 L Urine Protein Negative Urine Glucose (UA) Negative Urine Ketones Negative Urine Blood 3+ H Urine Nitrite Negative Urine Bilirubin Negative Urine Urobilinogen Negative Ur Leukocyte Esterase 3+ H Urine WBC (Auto) 54 Urine RBC (Auto) 1 Ur Epithelial Cells Rare Urine Bacteria Rare Urine Mucus Rare Urine Yeast Few Influenza A (Rapid) Negative Influenza B (Rapid) Negative 07/23/18 07/24/18 07/24/18 22:45 05:30 05:30 WBC 6.5 RBC 3.40 L Hgb 11.4 L Hct 35.2 L MCV 103.7 H MCH 33.4 MCHC 32.3 RDW 15.2 Plt Count 421 MPV 8.5 Absolute Neuts (auto) 4.7 Neutrophils % 72.9 D Lymphocytes % 17.8 D Monocytes % 7.7 D Eosinophils % 1.5 Basophils % 0.1 Nucleated RBC % 0 PT with INR INR PTT (Actin FS) Anticoagulation Therapy No Result Required. Puncture Site Left brachial Patient Temperature 94 ABG pH 7.30 L ABG pCO2 at Pt Temp 48.6 H ABG pO2 at Pt Temp 206.0 H* ABG HCO3 23.4 ABG O2 Sat (Measured) 99.2 H ABG O2 Content 16.3 ABG Base Excess -2.6 L Eliezer Test Positive VBG pH POC VBG pCO2 POC VBG pO2 Mixed VBG HCO3 Carboxyhemoglobin 0.4 L Methemoglobin 0.6 O2 Delivery Device Nonrebreather Oxygen Flow Rate 100 Vent Mode No Result Required. Vent Rate No Result Required. Mechanical Rate No Result Required. Pressure Support Vent No Result Required. Sodium 143 Potassium 5.1 Chloride 115 H Carbon Dioxide 24 Anion Gap 5 L BUN 20 H Creatinine 1.2 Creat Clearance w eGFR > 60 Random Glucose 69 L Lactic Acid Calcium 8.0 L Phosphorus 3.0 Magnesium 2.1 Total Bilirubin 0.2 AST 23 ALT 34 Alkaline Phosphatase 219 H Troponin I Total Protein 6.3 L Albumin 2.5 L TSH Urine Color Urine Appearance Urine pH Ur Specific [place] Urine Protein Urine Glucose (UA) Urine Ketones Urine Blood Urine Nitrite Urine Bilirubin Urine Urobilinogen Ur Leukocyte Esterase Urine WBC (Auto) Urine RBC (Auto) Ur Epithelial Cells Urine Bacteria Urine Mucus Urine Yeast Influenza A (Rapid) Influenza B (Rapid) Active Medications Generic Name Dose Route Start Last Admin Trade Name Freq PRN Reason Stop Dose Admin Albuterol/Ipratropium 1 amp 07/24/18 08:00 07/24/18 07:30 Duoneb - NEB 1 amp RQID JULIO Administration Albuterol/Ipratropium 1 amp 07/23/18 21:15 Duoneb - NEB Q4H PRN SHORTNESS OF BREATH Chlorhexidine Gluconate 1 applic 07/23/18 22:00 07/23/18 22:58 Hibiclens For Decolonization - TP 1 applic HS JULIO Administration Clobazam 15 mg 07/23/18 22:00 07/23/18 22:57 Onfi - GT 15 mg BID JULIO Administration Diazepam 5 mg 07/24/18 10:00 07/24/18 09:15 Valium - GT 5 mg DAILY JULIO Administration Piperacillin Sod/Tazobactam 50 mls @ 100 mls/hr 07/24/18 10:00 Sod 3.375 gm/ Dextrose IVPB 07/24/18 10:29 ONCE ONE Protocol Dextrose/Sodium Chloride 1,000 mls @ 75 mls/hr 07/24/18 07:30 07/24/18 07:45 D5-Ns - IV 75 mls/hr ASDIR JULIO Administration Piperacillin Sod/Tazobactam 50 mls @ 100 mls/hr 07/24/18 18:00 Sod 3.375 gm/ Dextrose IVPB Q8H-IV JULIO Protocol Levofloxacin 500 mg in 100 mls @ 100 mls/hr 07/24/18 20:00 Levaquin 500 Mg Premixed Ivpb - IVPB DAILY [facility] Protocol Lactulose 20 gm 07/23/18 22:00 07/24/18 09:14 Cephulac (Oral Use) GT 20 gm BID JULIO Administration Methylprednisolone Sodium Succinate 40 mg 07/24/18 10:00 07/24/18 09:13 Solu-Medrol - IVPUSH 40 mg DAILY JULIO Administration Mometasone Furoate 2 puff 07/23/18 22:00 07/23/18 23:11 Asmanex 110mcg - IH Not Given BID JULIO Mupirocin 1 applic 07/23/18 22:00 07/24/18 09:17 Bactroban Ointment (For Decolonization) - NS 07/28/18 21:59 1 applic BID JULIO Administration Simethicone 40 mg 07/23/18 22:00 07/24/18 09:13 Mylicon Liquid - GT 0.6 ml BID JULIO Administration Topiramate 100 mg 07/23/18 22:00 07/24/18 09:16 Topamax - GT 100 mg BID JULIO Administration ASSESSMENT/PLAN: Patient is a 28 year old male with a signficant past medical history of seizure disorder, microcephaly, profound MR, paraplegia, scoliosis. Who presents to the ED for hypothermia and lethargy. On arrival to the ED patient was found to have a rectal temp of 90.1, P 48, R 20 BP 104/59 Jesus Alberto Hugger was placed core temp now 95-96.7. Chest Xray image- R-sided infiltrate. Started on Vancomycin and Zosyn for aspiration pneumonia. Bolus NS given. Patient will be admitted to ICU for closer monitoring. ID: Severe sepsis, secondary to aspiration pneumonia Monitor in ICU On Jesus Alberto hugger, frequent vitals Blood, urine and sputum cultures pending. Urine Legionella pending Chest Xray image with patchy infiltrates of the right lung NS bolus x1 given in ED for fluid resuscitation. continue to hydrate. On Zosyn, and Levofloxacin ID consulted Pulmonary following Pulmonary Asthma, chronic On nebulilzers Pulm following. Neuro: Seizure disorder precautions maintained neuro following. fen NS bolus prn maintain MAP > 65 Replete lytes prn hold tube feedings for now DVT ppx SCDs Heparin SQ Code Status: Full Code Dispo: Requires Inpatient Care Visit type - Emergency Visit Emergency Visit: Yes ED Registration Date: 07/23/18 Care time: The patient presented to the Emergency Department on the above date and was hospitalized for further evaluation of their emergent condition. - New Patient This patient is new to me today: Yes Date on this admission: 07/24/18 - Critical Care Critical Care patient: Yes Total Critical Care Time (in minutes): 45 Critical Care Statement: The care of this patient involved high complexity decision making to prevent further life threatening deterioration of the patient 's condition and/or to evaluate & treat vital organ system(s) failure or risk of failure.
--- NOTE | 2018-07-24 09:32 | PN ---
Progress Note (short form) - Note Progress Note: ID consult dictated imp/reccd 28 yo man with multiple developmental disabilities and seizure disorder from [facility] admitted after witnessed 3 minuteseizure-found to be hypothermic, hypotensive and unresponsive , transferred to ED where he was noted to be hypothermic and hypoxic he had another 1 minute witnessed seizure in the ED now on 40% ventimask cxray with bilateral infiltrates more interactive this am less hypothermic no further seizures recurrent seizures (known seizure disorder) hypothermia- possible sepsis cannot r/o pneumonia cannot r/o UTI history of kleb ESBL uti in January 2018 continue zosyn, possible aspiration levaquin for now pending urine culture- d/c if urine cultue is negative urinary antigens neuro eval for seizures why is he on doxycycline and bactrim at the OR? will try to get records from [facility] Problem List - Problems (1) Seizure Code(s): R56.9 - UNSPECIFIED CONVULSIONS (2) Hypothermia Code(s): T68.XXXA - HYPOTHERMIA, INITIAL ENCOUNTER Qualifiers: Encounter type: initial encounter Qualified Code(s): T68.XXXA - Hypothermia , initial encounter (3) Sepsis Code(s): A41.9 - SEPSIS, UNSPECIFIED ORGANISM Qualifiers: Sepsis type: sepsis due to unspecified organism Qualified Code(s): A41.9 - Sepsis, unspecified organism (4) PNA (pneumonia) Code(s): J18.9 - PNEUMONIA, UNSPECIFIED ORGANISM Qualifiers: Pneumonia type: aspiration pneumonia Aspiration pneumonia type: unspecified Laterality: unspecified laterality Lung location: unspecified part of lung Qualified Code(s): J69.0 - Pneumonitis due to inhalation of food and vomit (5) UTI (urinary tract infection) Code(s): N39.0 - URINARY TRACT INFECTION, SITE NOT SPECIFIED Qualifiers: Urinary tract infection type: site unspecified Hematuria presence: without hematuria Qualified Code(s): N39.0 - Urinary tract infection, site not specified
[2018-07-24] MEDS: cloBAZam 10 MG TABLET GT SCH ×2 (09:43→21:27)
--- NOTE | 2018-07-24 09:49 | CONSULT ---
Consult - text type - Consultation Consultation Note: Neurology Chief Complaint: Hypothermia History of Present Illness: This is a 28 y/o young man from the [facility] with a PMHx of: Seizure Disorder, Microcephaly, Profound MR, Paraplegia, Scoliosis who presented to the ED for hypothermia and lethargy. Patient's horse doctor was at bedside reported that the patient was sent back from program because he looked ill appearing. She reported that he felt cold and his temperature was in the low 90's. On arrival to the ED patient was found to have a rectal temp of 90.1, P 48, R 20 BP 104/59 Jesus Alberto Hugger was placed core temp now 93.4. Chest Xray image- R-sided infiltrate. Started on Vancomycin and Zosyn for Aspiration Pneumonia. Bolus NS given. Patient admitted to ICU for Septic Shock likely secondary to Aspiration Pneumonia. Rapid Flu Swab - negative for A+B Influenza. Cultures sent off. No recent seizure events and no abnormal movements noted. On Onfi, valium, and topamax. - Past Medical History [employer]: Yes: Seizure, Other (Profound MR) Pulmonary: Yes: Asthma, Pneumonia Gastrointestinal: Yes: Other (PEG tube) - Past Surgical History Additional Past Surgical History: PEG - Smoking History Smoking history: Never smoked Aproximately how many cigarettes per day: 0 - Alcohol/Substance Use Hx Alcohol Use: No History of Substance Use: reports: None - Social History Usual Living Arrangement: Yes: [facility] ADL: Support Services History of Recent Travel: No Home Medications - Allergies Allergies/Adverse Reactions: Allergies Allergy/AdvReac Type Severity Reaction Status Date / Time No Known Drug Allergies Allergy Verified 01/14/18 14:46 Active Medications Albuterol/Ipratropium (Duoneb -) 1 amp NEB RQID [facility] Last Admin: 07/24/18 07:30 Dose: 1 amp Albuterol/Ipratropium (Duoneb -) 1 amp NEB Q4H PRN PRN Reason: SHORTNESS OF BREATH Chlorhexidine Gluconate (Hibiclens For Decolonization -) 1 applic TP HS [facility] Last Admin: 07/23/18 22:58 Dose: 1 applic Clobazam (Onfi -) 15 mg GT BID [facility] Last Admin: 07/24/18 09:43 Dose: 15 mg Diazepam (Valium -) 5 mg GT DAILY [facility] Last Admin: 07/24/18 09:15 Dose: 5 mg Piperacillin Sod/Tazobactam (Sod 3.375 gm/ Dextrose) 50 mls @ 100 mls/hr IVPB ONCE ONE; Protocol Stop: 07/24/18 10:29 Last Admin: 07/24/18 09:49 Dose: 100 mls/hr Dextrose/Sodium Chloride (D5-Ns -) 1,000 mls @ 75 mls/hr IV ASDIR JULIO Last Admin: 07/24/18 07:45 Dose: 75 mls/hr Piperacillin Sod/Tazobactam (Sod 3.375 gm/ Dextrose) 50 mls @ 100 mls/hr IVPB Q8H-IV JULIO; Protocol Levofloxacin (Levaquin 500 Mg Premixed Ivpb -) 500 mg in 100 mls @ 100 mls/hr IVPB DAILY JULIO; Protocol Lactulose (Cephulac (Oral Use)) 20 gm GT BID JULIO Last Admin: 07/24/18 09:14 Dose: 20 gm Methylprednisolone Sodium Succinate (Solu-Medrol -) 40 mg IVPUSH DAILY [facility] Last Admin: 07/24/18 09:13 Dose: 40 mg Mometasone Furoate (Asmanex 110mcg -) 2 puff IH BID [facility] Last Admin: 07/23/18 23:11 Dose: Not Given Mupirocin (Bactroban Ointment (For Decolonization) -) 1 applic NS BID [facility] Stop: 07/28/18 21:59 Last Admin: 07/24/18 09:17 Dose: 1 applic Simethicone (Mylicon Liquid -) 40 mg GT BID [facility] Last Admin: 07/24/18 09:13 Dose: 0.6 ml Topiramate (Topamax -) 100 mg GT BID JULIO Last Admin: 07/24/18 09:16 Dose: 100 mg Family Disease History - Family Disease History Family History: Unable to Obtain Review of Systems Unable to obtain ROS, reason: Profound MR Physical Examination Vital Signs Period Temp Pulse Resp BP Sys/Saha Pulse Ox Last 24 Hr 90.1 F-97.2 F 48-102 14-20 82-113/42-74 96-100 Constitutional: Yes: No Distress, Calm, Other (Unresponsive) Eyes: Yes: Conjunctiva Clear, PERRL HENT: Yes: Other (Microcephaly) Neck: Yes: WNL, Supple, Trachea Midline Cardiovascular: Yes: Regular Rate and Rhythm, S1, S2 Respiratory: Yes: Rhonchi (Coarse, throughout), Wheezes, Other (on NRB) Gastrointestinal: Yes: Soft, Distention, Hypoactive Bowel Sounds, Other (PEG- intact) Renal/: Yes: Incontinence Breast(s): Yes: WNL Edema: No Peripheral Pulses WNL: Yes Integumentary: Yes: Erythema (groin), Pressure Ulcer (Stage I Coccyx), Rash ( groin) Neurological: Yes: Pre-Existing Deficit, Unresponsive Labs: Laboratory Results - last 24 hr 07/23/18 07/23/18 07/23/18 17:10 17:10 17:10 WBC 5.8 RBC 3.65 L Hgb 12.6 Hct 37.3 D MCV 102.1 H MCH 34.4 H D MCHC 33.7 RDW 15.3 Plt Count 418 D MPV 8.8 D Absolute Neuts (auto) 3.5 Neutrophils % 60.3 Lymphocytes % 34.0 D Monocytes % 3.7 L Eosinophils % 1.7 Basophils % 0.3 Nucleated RBC % 0 PT with INR INR PTT (Actin FS) VBG pH 7.24 L* POC VBG pCO2 56.3 H POC VBG pO2 66.5 H D Mixed VBG HCO3 23.5 Sodium 136 Potassium 4.0 Chloride 104 Carbon Dioxide 25 Anion Gap 8 BUN 24 H Creatinine 1.1 Creat Clearance w eGFR > 60 Random Glucose 114 H Lactic Acid Calcium 9.0 Total Bilirubin 0.1 L AST 32 ALT 39 Alkaline Phosphatase 252 H Troponin I < 0.02 Total Protein 7.2 Albumin 2.8 L TSH 3.28 D Urine Color Urine Appearance Urine pH Ur Specific [facility] Urine Protein Urine Glucose (UA) Urine Ketones Urine Blood Urine Nitrite Urine Bilirubin Urine Urobilinogen Ur Leukocyte Esterase Urine WBC (Auto) Urine RBC (Auto) Urine Bacteria Urine Mucus Influenza A (Rapid) Influenza B (Rapid) 07/23/18 07/23/18 07/23/18 17:10 17:10 17:51 WBC RBC Hgb Hct MCV MCH MCHC RDW Plt Count MPV Absolute Neuts (auto) Neutrophils % Lymphocytes % Monocytes % Eosinophils % Basophils % Nucleated RBC % PT with INR 11.30 INR 0.96 PTT (Actin FS) 46.0 H VBG pH POC VBG pCO2 POC VBG pO2 Mixed VBG HCO3 Sodium Potassium Chloride Carbon Dioxide Anion Gap BUN Creatinine Creat Clearance w eGFR Random Glucose Lactic Acid 1.2 Calcium Total Bilirubin AST ALT Alkaline Phosphatase Troponin I Total Protein Albumin TSH Urine Color Ltyellow Urine Appearance Slcloudy Urine pH 8.0 Ur Specific [facility] 1.003 L Urine Protein Negative Urine Glucose (UA) Negative Urine Ketones Negative Urine Blood Negative Urine Nitrite Negative Urine Bilirubin Negative Urine Urobilinogen Negative Ur Leukocyte Esterase 3+ H Urine WBC (Auto) 13 Urine RBC (Auto) 1 Urine Bacteria Rare Urine Mucus Rare Influenza A (Rapid) Influenza B (Rapid) 07/23/18 18:55 WBC RBC Hgb Hct MCV MCH MCHC RDW Plt Count MPV Absolute Neuts (auto) Neutrophils % Lymphocytes % Monocytes % Eosinophils % Basophils % Nucleated RBC % PT with INR INR PTT (Actin FS) VBG pH POC VBG pCO2 POC VBG pO2 Mixed VBG HCO3 Sodium Potassium Chloride Carbon Dioxide Anion Gap BUN Creatinine Creat Clearance w eGFR Random Glucose Lactic Acid Calcium Total Bilirubin AST ALT Alkaline Phosphatase Troponin I Total Protein Albumin TSH Urine Color Urine Appearance Urine pH Ur Specific [facility] Urine Protein Urine Glucose (UA) Urine Ketones Urine Blood Urine Nitrite Urine Bilirubin Urine Urobilinogen Ur Leukocyte Esterase Urine WBC (Auto) Urine RBC (Auto) Urine Bacteria Urine Mucus Influenza A (Rapid) Negative Influenza B (Rapid) Negative Intake & Output 07/20/18 07/21/18 07/22/18 07/23/18 23:59 23:59 23:59 23:59 Weight 40.823 kg Last Vital Signs Temp Pulse Resp BP Pulse Ox 93.1 F L 76 20 113/58 L 99 07/23/18 20:26 07/23/18 20:26 07/23/18 20:26 07/23/18 20:26 07/23/18 20:26 Plan: This is a 28 y/o young man from the [facility] with a PMHx of: Seizure Disorder, Microcephaly, Profound MR, Paraplegia, Scoliosis who presented to the ED for hypothermia and lethargy. Patient's horse doctor was at bedside reported that the patient was sent back from program because he looked ill appearing. She reported that he felt cold and his temperature was in the low 90's. On arrival to the ED patient was found to have a rectal temp of 90.1, P 48, R 20 BP 104/59 Jesus Alberto Hugger was placed core temp now 93.4. Chest Xray image- R-sided infiltrate. Started on Vancomycin and Zosyn for Aspiration Pneumonia. Bolus NS given. Patient admitted to ICU for Septic Shock likely secondary to Aspiration Pneumonia. Rapid Flu Swab - negative for A+B Influenza. Cultures sent off. No recent seizure events and no abnormal movements noted. On Onfi, valium, and topamax. Continue infectious mgmt, follow up ID rec'd. Certainly can lower seizure threshold, thus far stable and remain on current regiment. Critical care time, 40 mins.
[2018-07-24] MEDS ORDERED: diazePAM 2 MG TABLET GT SCH (10:00)
--- NOTE | 2018-07-24 10:38 | CONS ---
DATE OF CONSULTATION: DATE OF DICTATION: 07/24/2018 INFECTIOUS DISEASE CONSULTATION REQUESTING PHYSICIAN: Hospitalist Service HISTORY OF PRESENT ILLNESS: This is a 28-year-old man with severe developmental disability, including cerebral palsy and mental retardation. He has a G-tube. He has a history of seizure disorder in the past. He had a witnessed 3-minute seizure yesterday. He was found to be hypothermic, hypotensive and unresponsive after this seizure, and transferred to the hospital, where he had another 1-minute seizure. He was originally on Ventimask. He was noted to be hypothermic and hypoxic. He was placed on a nonrebreather, and he was admitted to the ICU. He had another 1-minute seizure in the emergency room. He is currently in the ICU. He is now on a Ventimask. He is more awake. He is less hypothermic. He has a chest x-ray that has not been officially read but looks like he has bilateral infiltrates. As well, he has an elevated right hemidiaphragm. He is unable to speak and cannot give any history. PAST MEDICAL HISTORY: Notable for history of microcephaly, profound mental retardation. He has a history of quadriplegia, scoliosis, seizure disorder. He has a PEG tube. He has had prior history of pneumonia in the past, last in January 2018, at which time he had an ESBL Klebsiella UTI that was treated with a quinolone. PAST SURGICAL HISTORY: He has had spinal fusion and a right hip osteotomy in the past. ALLERGIES: He has no known drug allergies. MEDICATIONS: His medications at the nursing include Topamax, ferrous sulfate, , Senna, Bactrim daily, loratadine, baclofen, MiraLAX. REVIEW OF SYSTEMS: Not available. Per the H&P, they spoke with the aide, who reports he has not had any fever, chills, nausea or vomiting at the custodial. SOCIAL HISTORY: He resides at the [facility]. He has no history of substance use. PHYSICAL EXAMINATION: Vital Signs: His current temperature is 96.9. Pulse is 95, blood pressure 98/64, respiratory rate 17. He is saturating 96% on 40% Ventimask. HEENT: He is microcephalic. Neck: Supple. Lungs: Bilateral rhonchi. Heart: Regular rate and rhythm. Abdomen: Soft. G-tube site is intact. There is no drainage. His skin is intact. Extremities: Without edema. DIAGNOSTIC STUDIES: White count 6.5, hemoglobin 11.4, platelets 421. BUN 20, creatinine 1.2. His LFTs are notable for an alkaline phosphatase of 219. His urinalysis has 54 white cells. Apparently he had urinary retention and a Bates was placed in the emergency room. His influenza screen is negative. Blood cultures and urine cultures have been sent, and he is in isolation. Chest x-ray has been read and is notable for developing left mid lung consolidation. SUMMARY: This is a 28-year-old man with recurrent seizures, hypothermia, possible sepsis, cannot rule out pneumonia, cannot rule out urinary tract infection. He has a history of urinary tract infection in 2007. Would continue Zosyn for possible aspiration, Levaquin for now pending urine culture. If the urine culture is negative, would stop the Levaquin. Will obtain urinary antigens as well. It is unclear why he was on antibiotics at the custodial. So we will see if we can get more information. Further recommendations to follow. JULIO CHIU M.D. [id number]
--- NOTE | 2018-07-24 11:58 | EKG ---
Test Reason : Blood Pressure : / mmHG Vent. Rate : 055 BPM Atrial Rate : 055 BPM P-R Int : 178 ms QRS Dur : 098 ms QT Int : 472 ms P-R-T Axes : 019 078 046 degrees QTc Int : 451 ms SINUS BRADYCARDIA WITH SINUS ARRHYTHMIA ST ELEVATION, CONSIDER EARLY REPOLARIZATION, PERICARDITIS, OR INJURY ABNORMAL ECG Confirmed by EYAL TAYLOR MD ([id number]) on 07/24/2018 11:57:31 AM Referred By: Confirmed By:EYAL TAYLOR MD
--- NOTE | 2018-07-24 12:47 | PN ---
Teaching Attending Note Name of Resident: Kosta Plunkett ATTENDING PHYSICIAN STATEMENT I saw and evaluated the patient. I reviewed the resident's note and discussed the case with the resident. I agree with the resident's findings and plan as documented. SUBJECTIVE: Patient seen and examined in the ICU. Lethargic. Noted to have left UE focal seizure that terminated spontaneously and did not generalize. Rhonchorous breath sounds heard. Intake & Output 07/21/18 07/22/18 07/23/18 07/24/18 23:59 23:59 23:59 23:59 Intake Total 1200 Output Total 1000 Balance 200 Weight 90 lb Last Vital Signs Temp Pulse Resp BP Pulse Ox 97.1 F L 77 19 113/62 99 07/24/18 11:00 07/24/18 11:00 07/24/18 11:00 07/24/18 11:00 07/24/18 07:30 Active Medications Albuterol/Ipratropium (Duoneb -) 1 amp NEB RQID JULIO Last Admin: 07/24/18 11:30 Dose: 1 amp Albuterol/Ipratropium (Duoneb -) 1 amp NEB Q4H PRN PRN Reason: SHORTNESS OF BREATH Chlorhexidine Gluconate (Hibiclens For Decolonization -) 1 applic TP HS JULIO Last Admin: 07/23/18 22:58 Dose: 1 applic Clobazam (Onfi -) 15 mg GT BID JULIO Last Admin: 07/24/18 09:43 Dose: 15 mg Diazepam (Valium -) 5 mg GT DAILY JULIO Last Admin: 07/24/18 09:15 Dose: 5 mg Dextrose/Sodium Chloride (D5-Ns -) 1,000 mls @ 75 mls/hr IV ASDIR JULIO Last Admin: 07/24/18 07:45 Dose: 75 mls/hr Piperacillin Sod/Tazobactam (Sod 3.375 gm/ Dextrose) 50 mls @ 100 mls/hr IVPB Q8H-IV JULIO; Protocol Levofloxacin (Levaquin 500 Mg Premixed Ivpb -) 500 mg in 100 mls @ 100 mls/hr IVPB DAILY JULIO; Protocol Lactulose (Cephulac (Oral Use)) 20 gm GT BID JULIO Last Admin: 07/24/18 09:14 Dose: 20 gm Methylprednisolone Sodium Succinate (Solu-Medrol -) 40 mg IVPUSH DAILY [facility] Last Admin: 07/24/18 09:13 Dose: 40 mg Mupirocin (Bactroban Ointment (For Decolonization) -) 1 applic NS BID [facility] Stop: 07/28/18 21:59 Last Admin: 07/24/18 09:17 Dose: 1 applic Simethicone (Mylicon Liquid -) 40 mg GT BID [facility] Last Admin: 07/24/18 09:13 Dose: 0.6 ml Topiramate (Topamax -) 100 mg GT BID [facility] Last Admin: 07/24/18 09:16 Dose: 100 mg Constitutional: Yes: NAD, non-verbal at baseline Eyes: Yes: Conjunctiva Clear Cardiovascular: Yes: Bradycardia, S1, S2 Respiratory: Yes: Bilateral scattered Rhonchi Gastrointestinal: Yes: Normal Bowel Sounds, Soft, Other (surgical scar, PEG tube ) Extremities: Yes: Other (contracted LE) Edema: No Neurological: Yes: Poorly responsive Labs: Laboratory Results - last 24 hr 07/23/18 07/23/18 07/23/18 16:37 17:10 17:10 WBC 5.8 RBC 3.65 L Hgb 12.6 Hct 37.3 D MCV 102.1 H MCH 34.4 H D MCHC 33.7 RDW 15.3 Plt Count 418 D MPV 8.8 D Absolute Neuts (auto) 3.5 Neutrophils % 60.3 Lymphocytes % 34.0 D Monocytes % 3.7 L Eosinophils % 1.7 Basophils % 0.3 Nucleated RBC % 0 PT with INR INR PTT (Actin FS) Anticoagulation Therapy Puncture Site Patient Temperature ABG pH ABG pCO2 at Pt Temp ABG pO2 at Pt Temp ABG HCO3 ABG O2 Sat (Measured) ABG O2 Content ABG Base Excess Eliezer Test VBG pH 7.24 L* POC VBG pCO2 56.3 H POC VBG pO2 66.5 H D Mixed VBG HCO3 23.5 Carboxyhemoglobin Methemoglobin O2 Delivery Device Oxygen Flow Rate Vent Mode Vent Rate Mechanical Rate Pressure Support Vent Sodium Potassium Chloride Carbon Dioxide Anion Gap BUN Creatinine Creat Clearance w eGFR POC Glucometer 130.14856 Random Glucose Lactic Acid Calcium Phosphorus Magnesium Total Bilirubin AST ALT Alkaline Phosphatase Troponin I Total Protein Albumin TSH Urine Color Urine Appearance Urine pH Ur Specific [place] Urine Protein Urine Glucose (UA) Urine Ketones Urine Blood Urine Nitrite Urine Bilirubin Urine Urobilinogen Ur Leukocyte Esterase Urine WBC (Auto) Urine RBC (Auto) Ur Epithelial Cells Urine Bacteria Urine Mucus Urine Yeast Influenza A (Rapid) Influenza B (Rapid) 07/23/18 07/23/18 07/23/18 17:10 17:10 17:10 WBC RBC Hgb Hct MCV MCH MCHC RDW Plt Count MPV Absolute Neuts (auto) Neutrophils % Lymphocytes % Monocytes % Eosinophils % Basophils % Nucleated RBC % PT with INR 11.30 INR 0.96 PTT (Actin FS) 46.0 H Anticoagulation Therapy Puncture Site Patient Temperature ABG pH ABG pCO2 at Pt Temp ABG pO2 at Pt Temp ABG HCO3 ABG O2 Sat (Measured) ABG O2 Content ABG Base Excess Eliezer Test VBG pH POC VBG pCO2 POC VBG pO2 Mixed VBG HCO3 Carboxyhemoglobin Methemoglobin O2 Delivery Device Oxygen Flow Rate Vent Mode Vent Rate Mechanical Rate Pressure Support Vent Sodium 136 Potassium 4.0 Chloride 104 Carbon Dioxide 25 Anion Gap 8 BUN 24 H Creatinine 1.1 Creat Clearance w eGFR > 60 POC Glucometer Random Glucose 114 H Lactic Acid 1.2 Calcium 9.0 Phosphorus Magnesium Total Bilirubin 0.1 L AST 32 ALT 39 Alkaline Phosphatase 252 H Troponin I < 0.02 Total Protein 7.2 Albumin 2.8 L TSH 3.28 D Urine Color Urine Appearance Urine pH Ur Specific [place] Urine Protein Urine Glucose (UA) Urine Ketones Urine Blood Urine Nitrite Urine Bilirubin Urine Urobilinogen Ur Leukocyte Esterase Urine WBC (Auto) Urine RBC (Auto) Ur Epithelial Cells Urine Bacteria Urine Mucus Urine Yeast Influenza A (Rapid) Influenza B (Rapid) 07/23/18 07/23/18 07/23/18 17:51 17:51 18:55 WBC RBC Hgb Hct MCV MCH MCHC RDW Plt Count MPV Absolute Neuts (auto) Neutrophils % Lymphocytes % Monocytes % Eosinophils % Basophils % Nucleated RBC % PT with INR INR PTT (Actin FS) Anticoagulation Therapy Puncture Site Patient Temperature ABG pH ABG pCO2 at Pt Temp ABG pO2 at Pt Temp ABG HCO3 ABG O2 Sat (Measured) ABG O2 Content ABG Base Excess Eliezer Test VBG pH POC VBG pCO2 POC VBG pO2 Mixed VBG HCO3 Carboxyhemoglobin Methemoglobin O2 Delivery Device Oxygen Flow Rate Vent Mode Vent Rate Mechanical Rate Pressure Support Vent Sodium Potassium Chloride Carbon Dioxide Anion Gap BUN Creatinine Creat Clearance w eGFR POC Glucometer Random Glucose Lactic Acid 1.2 Calcium Phosphorus Magnesium Total Bilirubin AST ALT Alkaline Phosphatase Troponin I Total Protein Albumin TSH Urine Color Ltyellow Urine Appearance Slcloudy Urine pH 8.0 Ur Specific [place] 1.003 L Urine Protein Negative Urine Glucose (UA) Negative Urine Ketones Negative Urine Blood Negative Urine Nitrite Negative Urine Bilirubin Negative Urine Urobilinogen Negative Ur Leukocyte Esterase 3+ H Urine WBC (Auto) 13 Urine RBC (Auto) 1 Ur Epithelial Cells Urine Bacteria Rare Urine Mucus Rare Urine Yeast Influenza A (Rapid) Negative Influenza B (Rapid) Negative 07/23/18 07/23/18 07/24/18 22:13 22:45 05:30 WBC 6.5 RBC 3.40 L Hgb 11.4 L Hct 35.2 L MCV 103.7 H MCH 33.4 MCHC 32.3 RDW 15.2 Plt Count 421 MPV 8.5 Absolute Neuts (auto) 4.7 Neutrophils % 72.9 D Lymphocytes % 17.8 D Monocytes % 7.7 D Eosinophils % 1.5 Basophils % 0.1 Nucleated RBC % 0 PT with INR INR PTT (Actin FS) Anticoagulation Therapy No Result Required. Puncture Site Left brachial Patient Temperature 94 ABG pH 7.30 L ABG pCO2 at Pt Temp 48.6 H ABG pO2 at Pt Temp 206.0 H* ABG HCO3 23.4 ABG O2 Sat (Measured) 99.2 H ABG O2 Content 16.3 ABG Base Excess -2.6 L Eliezer Test Positive VBG pH POC VBG pCO2 POC VBG pO2 Mixed VBG HCO3 Carboxyhemoglobin 0.4 L Methemoglobin 0.6 O2 Delivery Device Nonrebreather Oxygen Flow Rate 100 Vent Mode No Result Required. Vent Rate No Result Required. Mechanical Rate No Result Required. Pressure Support Vent No Result Required. Sodium Potassium Chloride Carbon Dioxide Anion Gap BUN Creatinine Creat Clearance w eGFR POC Glucometer Random Glucose Lactic Acid Calcium Phosphorus Magnesium Total Bilirubin AST ALT Alkaline Phosphatase Troponin I Total Protein Albumin TSH Urine Color Ltyellow Urine Appearance Cloudy Urine pH 7.0 Ur Specific [place] 1.003 L Urine Protein Negative Urine Glucose (UA) Negative Urine Ketones Negative Urine Blood 3+ H Urine Nitrite Negative Urine Bilirubin Negative Urine Urobilinogen Negative Ur Leukocyte Esterase 3+ H Urine WBC (Auto) 54 Urine RBC (Auto) 1 Ur Epithelial Cells Rare Urine Bacteria Rare Urine Mucus Rare Urine Yeast Few Influenza A (Rapid) Influenza B (Rapid) 07/24/18 05:30 WBC RBC Hgb Hct MCV MCH MCHC RDW Plt Count MPV Absolute Neuts (auto) Neutrophils % Lymphocytes % Monocytes % Eosinophils % Basophils % Nucleated RBC % PT with INR INR PTT (Actin FS) Anticoagulation Therapy Puncture Site Patient Temperature ABG pH ABG pCO2 at Pt Temp ABG pO2 at Pt Temp ABG HCO3 ABG O2 Sat (Measured) ABG O2 Content ABG Base Excess Eliezer Test VBG pH POC VBG pCO2 POC VBG pO2 Mixed VBG HCO3 Carboxyhemoglobin Methemoglobin O2 Delivery Device Oxygen Flow Rate Vent Mode Vent Rate Mechanical Rate Pressure Support Vent Sodium 143 Potassium 5.1 Chloride 115 H Carbon Dioxide 24 Anion Gap 5 L BUN 20 H Creatinine 1.2 Creat Clearance w eGFR > 60 POC Glucometer Random Glucose 69 L Lactic Acid Calcium 8.0 L Phosphorus 3.0 Magnesium 2.1 Total Bilirubin 0.2 AST 23 ALT 34 Alkaline Phosphatase 219 H Troponin I Total Protein 6.3 L Albumin 2.5 L TSH Urine Color Urine Appearance Urine pH Ur Specific [place] Urine Protein Urine Glucose (UA) Urine Ketones Urine Blood Urine Nitrite Urine Bilirubin Urine Urobilinogen Ur Leukocyte Esterase Urine WBC (Auto) Urine RBC (Auto) Ur Epithelial Cells Urine Bacteria Urine Mucus Urine Yeast Influenza A (Rapid) Influenza B (Rapid) Assessment/Plan Suspected Sepsis Severe MR Seizure D/O Wheelchair bound Chronic aspirations with suspected new episode of aspiration pneumonitis versus HCAP Breakthrough Seizures Hypothermia ABX per ID: Zosyn/Levaquin AEDs as ordered / Neuro evaluation O2 to maintain saturation > 95% Aspiration precautions Follow cultures Jesus Alberto serrato Daily Medrol BD TX PRN ICU monitoring for tenuous status Dr Brito Critical care time spent in reviewing chart, evaluating patient and formulating plan - 36 minutes.
[2018-07-24] MEDS: MOMETASONE FUROATE 110 MCG/IH INHALER IH SCH (13:16)
[2018-07-24] MEDS ORDERED: ALBUTEROL SO4 0.083% IH SOL 2.5 MG/3 ML VIAL.NEB. NEB PRN (14:18)
--- NOTE | 2018-07-24 14:29 | PN ---
Physical Exam: SUBJECTIVE: Patient seen and examined at bedside. Rectal temp this AM was 97. On venti mask, awake, non-verbal and minimally responsive. OBJECTIVE: Vital Signs Period Temp Pulse Resp BP Sys/Saha Pulse Ox Last 24 Hr 90.1 F-97.2 F 48-102 14-28 82-113/42-74 96-100 GENERAL: Awake, non-verbal, minimally responsive. Numerous congenital malformations noted. HEAD: microcephalic/AT EYES: PERRL ENT: MMM NECK: Trachea midline, full range of motion, supple. LUNGS: coarse breathing, rhonchi, wheezes HEART: RRR, no m/r/g ABDOMEN: soft, NT, ND, G-tube in place c/d/i MSK: diffuse joint abnormalities EXTREMITIES: 2+ pulses, warm, well-perfused, no edema. NEUROLOGICAL: moving extremities spontaneously, limited exam PSYCH: could not assess SKIN: Warm, dry, normal turgor Laboratory Results - last 24 hr 07/23/18 07/23/18 07/23/18 16:37 17:10 17:10 WBC 5.8 RBC 3.65 L Hgb 12.6 Hct 37.3 D MCV 102.1 H MCH 34.4 H D MCHC 33.7 RDW 15.3 Plt Count 418 D MPV 8.8 D Absolute Neuts (auto) 3.5 Neutrophils % 60.3 Lymphocytes % 34.0 D Monocytes % 3.7 L Eosinophils % 1.7 Basophils % 0.3 Nucleated RBC % 0 PT with INR INR PTT (Actin FS) Anticoagulation Therapy Puncture Site Patient Temperature ABG pH ABG pCO2 at Pt Temp ABG pO2 at Pt Temp ABG HCO3 ABG O2 Sat (Measured) ABG O2 Content ABG Base Excess Eliezer Test VBG pH 7.24 L* POC VBG pCO2 56.3 H POC VBG pO2 66.5 H D Mixed VBG HCO3 23.5 Carboxyhemoglobin Methemoglobin O2 Delivery Device Oxygen Flow Rate Vent Mode Vent Rate Mechanical Rate Pressure Support Vent Sodium Potassium Chloride Carbon Dioxide Anion Gap BUN Creatinine Creat Clearance w eGFR POC Glucometer 130.14616 Random Glucose Lactic Acid Calcium Phosphorus Magnesium Total Bilirubin AST ALT Alkaline Phosphatase Troponin I Total Protein Albumin TSH Urine Color Urine Appearance Urine pH Ur Specific [place] Urine Protein Urine Glucose (UA) Urine Ketones Urine Blood Urine Nitrite Urine Bilirubin Urine Urobilinogen Ur Leukocyte Esterase Urine WBC (Auto) Urine RBC (Auto) Ur Epithelial Cells Urine Bacteria Urine Mucus Urine Yeast Influenza A (Rapid) Influenza B (Rapid) 07/23/18 07/23/18 07/23/18 17:10 17:10 17:10 WBC RBC Hgb Hct MCV MCH MCHC RDW Plt Count MPV Absolute Neuts (auto) Neutrophils % Lymphocytes % Monocytes % Eosinophils % Basophils % Nucleated RBC % PT with INR 11.30 INR 0.96 PTT (Actin FS) 46.0 H Anticoagulation Therapy Puncture Site Patient Temperature ABG pH ABG pCO2 at Pt Temp ABG pO2 at Pt Temp ABG HCO3 ABG O2 Sat (Measured) ABG O2 Content ABG Base Excess Eliezer Test VBG pH POC VBG pCO2 POC VBG pO2 Mixed VBG HCO3 Carboxyhemoglobin Methemoglobin O2 Delivery Device Oxygen Flow Rate Vent Mode Vent Rate Mechanical Rate Pressure Support Vent Sodium 136 Potassium 4.0 Chloride 104 Carbon Dioxide 25 Anion Gap 8 BUN 24 H Creatinine 1.1 Creat Clearance w eGFR > 60 POC Glucometer Random Glucose 114 H Lactic Acid 1.2 Calcium 9.0 Phosphorus Magnesium Total Bilirubin 0.1 L AST 32 ALT 39 Alkaline Phosphatase 252 H Troponin I < 0.02 Total Protein 7.2 Albumin 2.8 L TSH 3.28 D Urine Color Urine Appearance Urine pH Ur Specific [place] Urine Protein Urine Glucose (UA) Urine Ketones Urine Blood Urine Nitrite Urine Bilirubin Urine Urobilinogen Ur Leukocyte Esterase Urine WBC (Auto) Urine RBC (Auto) Ur Epithelial Cells Urine Bacteria Urine Mucus Urine Yeast Influenza A (Rapid) Influenza B (Rapid) 07/23/18 07/23/18 07/23/18 17:51 17:51 18:55 WBC RBC Hgb Hct MCV MCH MCHC RDW Plt Count MPV Absolute Neuts (auto) Neutrophils % Lymphocytes % Monocytes % Eosinophils % Basophils % Nucleated RBC % PT with INR INR PTT (Actin FS) Anticoagulation Therapy Puncture Site Patient Temperature ABG pH ABG pCO2 at Pt Temp ABG pO2 at Pt Temp ABG HCO3 ABG O2 Sat (Measured) ABG O2 Content ABG Base Excess Eliezer Test VBG pH POC VBG pCO2 POC VBG pO2 Mixed VBG HCO3 Carboxyhemoglobin Methemoglobin O2 Delivery Device Oxygen Flow Rate Vent Mode Vent Rate Mechanical Rate Pressure Support Vent Sodium Potassium Chloride Carbon Dioxide Anion Gap BUN Creatinine Creat Clearance w eGFR POC Glucometer Random Glucose Lactic Acid 1.2 Calcium Phosphorus Magnesium Total Bilirubin AST ALT Alkaline Phosphatase Troponin I Total Protein Albumin TSH Urine Color Ltyellow Urine Appearance Slcloudy Urine pH 8.0 Ur Specific [place] 1.003 L Urine Protein Negative Urine Glucose (UA) Negative Urine Ketones Negative Urine Blood Negative Urine Nitrite Negative Urine Bilirubin Negative Urine Urobilinogen Negative Ur Leukocyte Esterase 3+ H Urine WBC (Auto) 13 Urine RBC (Auto) 1 Ur Epithelial Cells Urine Bacteria Rare Urine Mucus Rare Urine Yeast Influenza A (Rapid) Negative Influenza B (Rapid) Negative 07/23/18 07/23/18 07/24/18 22:13 22:45 05:30 WBC 6.5 RBC 3.40 L Hgb 11.4 L Hct 35.2 L MCV 103.7 H MCH 33.4 MCHC 32.3 RDW 15.2 Plt Count 421 MPV 8.5 Absolute Neuts (auto) 4.7 Neutrophils % 72.9 D Lymphocytes % 17.8 D Monocytes % 7.7 D Eosinophils % 1.5 Basophils % 0.1 Nucleated RBC % 0 PT with INR INR PTT (Actin FS) Anticoagulation Therapy No Result Required. Puncture Site Left brachial Patient Temperature 94 ABG pH 7.30 L ABG pCO2 at Pt Temp 48.6 H ABG pO2 at Pt Temp 206.0 H* ABG HCO3 23.4 ABG O2 Sat (Measured) 99.2 H ABG O2 Content 16.3 ABG Base Excess -2.6 L Eliezer Test Positive VBG pH POC VBG pCO2 POC VBG pO2 Mixed VBG HCO3 Carboxyhemoglobin 0.4 L Methemoglobin 0.6 O2 Delivery Device Nonrebreather Oxygen Flow Rate 100 Vent Mode No Result Required. Vent Rate No Result Required. Mechanical Rate No Result Required. Pressure Support Vent No Result Required. Sodium Potassium Chloride Carbon Dioxide Anion Gap BUN Creatinine Creat Clearance w eGFR POC Glucometer Random Glucose Lactic Acid Calcium Phosphorus Magnesium Total Bilirubin AST ALT Alkaline Phosphatase Troponin I Total Protein Albumin TSH Urine Color Ltyellow Urine Appearance Cloudy Urine pH 7.0 Ur Specific [place] 1.003 L Urine Protein Negative Urine Glucose (UA) Negative Urine Ketones Negative Urine Blood 3+ H Urine Nitrite Negative Urine Bilirubin Negative Urine Urobilinogen Negative Ur Leukocyte Esterase 3+ H Urine WBC (Auto) 54 Urine RBC (Auto) 1 Ur Epithelial Cells Rare Urine Bacteria Rare Urine Mucus Rare Urine Yeast Few Influenza A (Rapid) Influenza B (Rapid) 07/24/18 05:30 WBC RBC Hgb Hct MCV MCH MCHC RDW Plt Count MPV Absolute Neuts (auto) Neutrophils % Lymphocytes % Monocytes % Eosinophils % Basophils % Nucleated RBC % PT with INR INR PTT (Actin FS) Anticoagulation Therapy Puncture Site Patient Temperature ABG pH ABG pCO2 at Pt Temp ABG pO2 at Pt Temp ABG HCO3 ABG O2 Sat (Measured) ABG O2 Content ABG Base Excess Eliezer Test VBG pH POC VBG pCO2 POC VBG pO2 Mixed VBG HCO3 Carboxyhemoglobin Methemoglobin O2 Delivery Device Oxygen Flow Rate Vent Mode Vent Rate Mechanical Rate Pressure Support Vent Sodium 143 Potassium 5.1 Chloride 115 H Carbon Dioxide 24 Anion Gap 5 L BUN 20 H Creatinine 1.2 Creat Clearance w eGFR > 60 POC Glucometer Random Glucose 69 L Lactic Acid Calcium 8.0 L Phosphorus 3.0 Magnesium 2.1 Total Bilirubin 0.2 AST 23 ALT 34 Alkaline Phosphatase 219 H Troponin I Total Protein 6.3 L Albumin 2.5 L TSH Urine Color Urine Appearance Urine pH Ur Specific [place] Urine Protein Urine Glucose (UA) Urine Ketones Urine Blood Urine Nitrite Urine Bilirubin Urine Urobilinogen Ur Leukocyte Esterase Urine WBC (Auto) Urine RBC (Auto) Ur Epithelial Cells Urine Bacteria Urine Mucus Urine Yeast Influenza A (Rapid) Influenza B (Rapid) Active Medications Generic Name Dose Route Start Last Admin Trade Name Freq PRN Reason Stop Dose Admin Albuterol/Ipratropium 1 amp 07/24/18 08:00 07/24/18 11:30 Duoneb - NEB 1 amp RQID JULIO Administration Albuterol/Ipratropium 1 amp 07/23/18 21:15 Duoneb - NEB Q4H PRN SHORTNESS OF BREATH Chlorhexidine Gluconate 1 applic 07/23/18 22:00 07/23/18 22:58 Hibiclens For Decolonization - TP 1 applic HS JULIO Administration Clobazam 15 mg 07/23/18 22:00 07/24/18 09:43 Onfi - GT 15 mg BID JULIO Administration Diazepam 5 mg 07/24/18 10:00 07/24/18 09:15 Valium - GT 5 mg DAILY JULIO Administration Dextrose/Sodium Chloride 1,000 mls @ 75 mls/hr 07/24/18 07:30 07/24/18 07:45 D5-Ns - IV 75 mls/hr ASDIR JULIO Administration Piperacillin Sod/Tazobactam 50 mls @ 100 mls/hr 07/24/18 18:00 Sod 3.375 gm/ Dextrose IVPB Q8H-IV JULIO Protocol Levofloxacin 500 mg in 100 mls @ 100 mls/hr 07/24/18 20:00 Levaquin 500 Mg Premixed Ivpb - IVPB DAILY JULIO Protocol Lactulose 20 gm 07/23/18 22:00 07/24/18 09:14 Cephulac (Oral Use) GT 20 gm BID JULIO Administration Methylprednisolone Sodium Succinate 40 mg 07/24/18 10:00 07/24/18 09:13 Solu-Medrol - IVPUSH 40 mg DAILY JULIO Administration Mupirocin 1 applic 07/23/18 22:00 07/24/18 09:17 Bactroban Ointment (For Decolonization) - NS 07/28/18 21:59 1 applic BID JULIO Administration Simethicone 40 mg 07/23/18 22:00 07/24/18 09:13 Mylicon Liquid - GT 0.6 ml BID JULIO Administration Topiramate 100 mg 07/23/18 22:00 07/24/18 09:16 Topamax - GT 100 mg BID JULIO Administration ASSESSMENT/PLAN: 28 y/o M w/ PMHx severe MR, microcephaly, congenital malformations, Sz disorder , chronic aspiration, multiple aspiration PNAs, presented from [place] w/ witness tonic-clonic seizure. Hypothermic to 90.1 on presentation, CXR suggesting new aspiration PNA, admitted to ICU from ED and had second seizure during transfer. #neuro -Dr. Escobedo following -Onfi, valium, and topamax for Sz prophylaxis #pulmonary -new aspiration PNA -supplemental oxygen to maintain O2 sat > 95% -solumedrol 40 daily -bronchodilators standing and PRN -f/u CXR #ID -Dr. Bauer following -cont Zosyn/Levaquin -laron serrato #GI -G-tube in place -restarting Jevity feeds #FEN -D5NS @ 75 -monitor and correct electrolytes -Jevity feeds per farm management adviser parameters #PPx -DVT: SCDs -GI: IV PTX #code -full #dispo -cont to monitor in ICU Visit type - Emergency Visit Emergency Visit: No - New Patient This patient is new to me today: Yes Date on this admission: 07/24/18 - Critical Care Critical Care patient: Yes Total Critical Care Time (in minutes): 40 Critical Care Statement: The care of this patient involved high complexity decision making to prevent further life threatening deterioration of the patient 's condition and/or to evaluate & treat vital organ system(s) failure or risk of failure.
[2018-07-24] MEDS: PIPERACILLIN/TAZOB 3.375 GM 3.375 GM in DEXTROSE 5%-WATER - 50 ML IVPB SCH (17:22)
[2018-07-24] MEDS: CHLORHEXIDINE GLUCONATE 4% CLEANSER FOR DECOLONIZATION TP SCH (21:27)
[2018-07-25] MEDS ORDERED: PIPERACILLIN/TAZOBACTAM 3.375 GM VIAL IVPB ONE ×4 (01:40→22:04)
[2018-07-25] MEDS ORDERED: DEXTROSE 5%-WATER - 50 ML IVPB ONE ×4 (01:40→22:04)
[2018-07-25] MEDS: PIPERACILLIN/TAZOB 3.375 GM 3.375 GM in DEXTROSE 5%-WATER - 50 ML IVPB SCH ×3 (01:43→17:47)
[2018-07-25 06:50] LABS: BASO % 0.1 % (0-2.0); EOS % 0.4 % (0-4.5); HEMATOCRIT 34.1 % (35.4-49); HEMOGLOBIN 10.6 GM/dL (11.7-16.9); LYMPH % 16.3 % (8-40); MCHC 31.1 g/dl (32.0-35.9); MEAN PLT VOLUME 8.2 fl (7.5-11.1); MONO % 6.7 % (3.8-10.2); NEUT % 76.5 % (42.8-82.8); PLATELET COUNT 367 K/MM3 (134-434); RBC 3.22 M/mm3 (4.00-5.60); RDW 15.5 % (11.9-15.9); WHITE BLOOD COUNT 9.7 K/mm3 (4.0-10.0)
[2018-07-25 07:00] LABS: ALBUMIN 2.4 g/dl (3.4-5.0); ALK PHOS 201 U/L (45-117); ANION GAP 4 MMOL/L (8-16); BILIRUBIN,TOTAL 0.3 mg/dL (0.2-1); BLOOD UREA NITROGEN 19 mg/dL (7-18); CALCIUM 8.3 mg/dL (8.5-10.1); CHLORIDE 117 mmol/L (98-107); CO2 25 mmol/L (21-32); CREATININE 1.4 mg/dL (0.55-1.3); GLUCOSE,RANDOM 120 mg/dL (74-106); MAGNESIUM 2.4 mg/dL (1.8-2.4); PHOSPHOROUS 3.1 mg/dL (2.5-4.9); POTASSIUM 4.3 mmol/L (3.5-5.1); SGOT/AST 21 U/L (15-37); SGPT/ALT 29 U/L (13-61); SODIUM 146 mmol/L (136-145); TOT PROT 6.2 g/dl (6.4-8.2)
[2018-07-25] MEDS: ALBUTEROL SO4 2.5/IPRATROPIUM 0.5 INH SOL 3 ML VIAL.NEB. NEB SCH ×4 (07:20→20:05)
[2018-07-25] MEDS ORDERED: PT OWN MED DRAWER 7, Y5N ONE (09:14)
[2018-07-25] MEDS: TOPIRAMATE 100 MG TABLET GT SCH ×2 (09:21→21:53)
[2018-07-25] MEDS: methylPREDNISolone NA SUCC 40 MG/1 ML VIAL IVPUSH SCH (09:21)
[2018-07-25] MEDS: diazePAM 5 MG TABLET GT SCH (09:21)
[2018-07-25] MEDS: SIMETHICONE 40 MG/0.6 ML BOTTLE GT SCH ×2 (09:22→21:52)
[2018-07-25] MEDS: cloBAZam 10 MG TABLET GT SCH ×2 (09:23→21:53)
[2018-07-25] MEDS: LACTULOSE 20 GM/30 ML UDC (FOR ORAL USE ONLY) GT SCH ×2 (09:24→21:51)
[2018-07-25] MEDS: PANTOPRAZOLE SODIUM 40 MG VIAL IVPUSH SCH (09:24)
--- NOTE | 2018-07-25 10:09 | PN ---
Progress Note (short form) - Note Progress Note: NAD hypothermic, on warming blanket Vital Signs Period Temp Pulse Resp BP Sys/Saha Pulse Ox Last 24 Hr 96.2 F-99.0 F 77-109 15-28 82-113/43-64 99-99 cor-rrr lungs scattered rhonchi abd soft,nt ext no edema CBC, BMP 07/25/18 05:30 07/25/18 05:30 Microbiology 07/23/18 17:51 Urine - Urine - Catheterized Urine Culture - Preliminary Non Lactose Fermenting Gnb Non Lactose Fermenting Gnb#2 07/23/18 17:10 Blood - Peripheral Venous Blood Culture - Preliminary NO GROWTH OBTAINED AFTER 24 HOURS, INCUBATION TO CONTINUE FOR 4 DAYS. 07/23/18 17:10 Blood - Peripheral Venous Blood Culture - Preliminary NO GROWTH OBTAINED AFTER 24 HOURS, INCUBATION TO CONTINUE FOR 4 DAYS. 07/24/18 09:49 Urine - Urine Bates Legionella Antigen - Preliminary 07/24/18 09:49 Urine - Urine Bates Streptococcus pneumoniae Antigen (M - Final a/p profound developmental disabilities pneumonia ?UTI recurrent seizures (known seizure disorder) history of kleb ESBL uti in January 2018 continue zosyn, possible aspiration levaquin for now pending urine culture- d/c if urine cultue is negative urinary antigens neuro eval for seizures why is he on doxycycline and bactrim at the [facility]? please get records from [facility] Problem List - Problems (1) Seizure Code(s): R56.9 - UNSPECIFIED CONVULSIONS (2) Hypothermia Code(s): T68.XXXA - HYPOTHERMIA, INITIAL ENCOUNTER Qualifiers: Encounter type: initial encounter Qualified Code(s): T68.XXXA - Hypothermia , initial encounter (3) Sepsis Code(s): A41.9 - SEPSIS, UNSPECIFIED ORGANISM Qualifiers: Sepsis type: sepsis due to unspecified organism Qualified Code(s): A41.9 - Sepsis, unspecified organism (4) PNA (pneumonia) Code(s): J18.9 - PNEUMONIA, UNSPECIFIED ORGANISM Qualifiers: Pneumonia type: aspiration pneumonia Aspiration pneumonia type: unspecified Laterality: unspecified laterality Lung location: unspecified part of lung Qualified Code(s): J69.0 - Pneumonitis due to inhalation of food and vomit (5) UTI (urinary tract infection) Code(s): N39.0 - URINARY TRACT INFECTION, SITE NOT SPECIFIED Qualifiers: Urinary tract infection type: site unspecified Hematuria presence: without hematuria Qualified Code(s): N39.0 - Urinary tract infection, site not specified
--- NOTE | 2018-07-25 10:52 | PN ---
Progress Note (short form) - Note Progress Note: Seen and examined in ICU remains hypothermic on SAUL hulaure BP stable remains on venti mask 50% w/ productive cough Current Medications Albuterol Sulfate (Ventolin 0.083% Nebulizer Soln -) 1 amp NEB Q4H PRN PRN Reason: SHORT OF BREATH/WHEEZING Albuterol/Ipratropium (Duoneb -) 1 amp NEB RQID [facility] Last Admin: 07/25/18 07:20 Dose: 1 amp Chlorhexidine Gluconate (Hibiclens For Decolonization -) 1 applic TP HS [facility] Last Admin: 07/24/18 21:27 Dose: 1 applic Clobazam (Onfi -) 15 mg GT BID [facility] Last Admin: 07/25/18 09:23 Dose: 15 mg Diazepam (Valium -) 5 mg GT DAILY [facility] Last Admin: 07/25/18 09:21 Dose: 5 mg Piperacillin Sod/Tazobactam (Sod 3.375 gm/ Dextrose) 50 mls @ 100 mls/hr IVPB Q8H-IV [facility]; Protocol Last Admin: 07/25/18 09:24 Dose: 100 mls/hr Levofloxacin (Levaquin 500 Mg Premixed Ivpb -) 500 mg in 100 mls @ 100 mls/hr IVPB DAILY [facility]; Protocol Last Admin: 07/25/18 09:31 Dose: 100 mls/hr Lactulose (Cephulac (Oral Use)) 20 gm GT BID [facility] Last Admin: 07/24/18 21:27 Dose: 20 gm Methylprednisolone Sodium Succinate (Solu-Medrol -) 40 mg IVPUSH DAILY [facility] Last Admin: 07/25/18 09:21 Dose: 40 mg Mupirocin (Bactroban Ointment (For Decolonization) -) 1 applic NS BID [facility] Stop: 07/28/18 21:59 Last Admin: 07/24/18 21:28 Dose: 1 applic Pantoprazole Sodium (Protonix Iv) 40 mg IVPUSH DAILY [facility] Last Admin: 07/25/18 09:24 Dose: 40 mg Simethicone (Mylicon Liquid -) 40 mg GT BID [facility] Last Admin: 07/25/18 09:22 Dose: 40 mg Topiramate (Topamax -) 100 mg GT BID [facility] Last Admin: 07/25/18 09:21 Dose: 100 mg Vital Signs Period Temp Pulse Resp BP Sys/Saha Pulse Ox Last 24 Hr 96.2 F-99.0 F 77-109 15-28 82-113/43-64 99-99 Intake & Output 07/22/18 07/23/18 07/24/18 07/25/18 23:59 23:59 23:59 23:59 Intake Total 2060 1190 Output Total 1550 300 Balance 510 890 Weight 40.823 kg 40.823 kg Exam: mild resp distress w/ productive cough Neuro: non verbal, does not follow commands Pulm: coarse bilteral rhonchi CV: RRR Abd: SNTND Ext: contracted, trace Le edema CBC, BMP 07/25/18 05:30 07/25/18 05:30 CXR: elevated right carla diaphragm. left sided consolidation w/ mild PVC Assessment/Plan Suspected Sepsis Severe MR Seizure D/O Wheelchair bound Chronic aspirations with suspected new episode of aspiration pneumonitis versus HCAP Breakthrough Seizures Hypothermia ABX per ID: Zosyn/Levaquin AEDs as ordered / Neuro evaluation O2 to maintain saturation > 95% Aspiration precautions Follow cultures Saul serrato Daily Medrol BD [place] PRN ICU monitoring for tenuous status Boerem ACNP Critical care time spent in reviewing chart, evaluating patient and formulating plan - 36 minutes
[2018-07-25] MEDS: MUPIROCIN 2% TOPICAL OINTMENT FOR DECOLONIZATION NS SCH ×2 (11:00→21:52)
--- NOTE | 2018-07-25 11:40 | CONSULT ---
Consult - text type - Consultation Consultation Note: Neurology Chief Complaint: Hypothermia History of Present Illness: This is a 28 y/o young man from the [facility] with a PMHx of: Seizure Disorder, Microcephaly, Profound MR, Paraplegia, Scoliosis who presented to the ED for hypothermia and lethargy. Patient's sales service route manager was at bedside reported that the patient was sent back from program because he looked ill appearing on day of admission. She reported that he felt cold and his temperature was in the low 90's on day of admission. On arrival to the ED patient was found to have a rectal temp of 90.1, P 48, R 20 BP 104/59 Jesus Alberto Hugger was placed core temp now 93.4. Chest Xray image- R-sided infiltrate. Started on Vancomycin and Zosyn for Aspiration Pneumonia. Bolus NS given. Patient admitted to ICU for Septic Shock likely secondary to Aspiration Pneumonia. Rapid Flu Swab - negative for A+B Influenza. Cultures sent off. No recent seizure events and no abnormal movements noted. On Onfi, valium, and topamax. Home Medications - Allergies Allergies/Adverse Reactions: Allergies Allergy/AdvReac Type Severity Reaction Status Date / Time No Known Drug Allergies Allergy Verified 01/14/18 14:46 Physical Examination Constitutional: Yes: No Distress, Calm, Other (Unresponsive) Eyes: Yes: Conjunctiva Clear, PERRL HENT: Yes: Other (Microcephaly) Neck: Yes: WNL, Supple, Trachea Midline Cardiovascular: Yes: Regular Rate and Rhythm, S1, S2 Respiratory: Yes: Rhonchi (Coarse, throughout), Wheezes, Other (on NRB) Gastrointestinal: Yes: Soft, Distention, Hypoactive Bowel Sounds, Other (PEG- intact) Renal/: Yes: Incontinence Breast(s): Yes: WNL Edema: No Peripheral Pulses WNL: Yes Integumentary: Yes: Erythema (groin), Pressure Ulcer (Stage I Coccyx), Rash ( groin) Neurological: Yes: Pre-Existing Deficit, Unresponsive Labs: Vital Signs Temperature 96.2 F L 07/25/18 07:32 Pulse Rate 98 H 07/25/18 07:32 Respiratory Rate 22 H 07/25/18 07:32 Blood Pressure 105/56 L 07/25/18 07:32 O2 Sat by Pulse Oximetry (%) 99 07/25/18 07:32 CBCD WBC 9.7 K/mm3 (4.0-10.0) 07/25/18 05:30 RBC 3.22 M/mm3 (4.00-5.60) L 07/25/18 05:30 Hgb 10.6 GM/dL (11.7-16.9) L 07/25/18 05:30 Hct 34.1 % (35.4-49) L 07/25/18 05:30 MCV 106.0 fl (80-96) H 07/25/18 05:30 MCHC 31.1 g/dl (32.0-35.9) L 07/25/18 05:30 RDW 15.5 % (11.9-15.9) 07/25/18 05:30 Plt Count 367 K/MM3 (134-434) 07/25/18 05:30 MPV 8.2 fl (7.5-11.1) 07/25/18 05:30 CMP Sodium 146 mmol/L (136-145) H 07/25/18 05:30 Potassium 4.3 mmol/L (3.5-5.1) 07/25/18 05:30 Chloride 117 mmol/L (98-107) H 07/25/18 05:30 Carbon Dioxide 25 mmol/L (21-32) 07/25/18 05:30 Anion Gap 4 MMOL/L (8-16) L 07/25/18 05:30 BUN 19 mg/dL (7-18) H 07/25/18 05:30 Creatinine 1.4 mg/dL (0.55-1.3) H 07/25/18 05:30 Creat Clearance w eGFR 59.92 (>60) 07/25/18 05:30 Random Glucose 120 mg/dL (74-106) H 07/25/18 05:30 Calcium 8.3 mg/dL (8.5-10.1) L 07/25/18 05:30 Total Bilirubin 0.3 mg/dL (0.2-1) 07/25/18 05:30 AST 21 U/L (15-37) 07/25/18 05:30 ALT 29 U/L (13-61) 07/25/18 05:30 Alkaline Phosphatase 201 U/L (45-117) H 07/25/18 05:30 Total Protein 6.2 g/dl (6.4-8.2) L 07/25/18 05:30 Albumin 2.4 g/dl (3.4-5.0) L 07/25/18 05:30 CARDIAC ENZYMES Troponin I < 0.02 ng/ml (0.00-0.05) 07/23/18 17:10 Diagnostic CXRAY - completed Plan: This is a 28 y/o young man from the [facility] with a PMHx of: Seizure Disorder, Microcephaly, Profound MR, Paraplegia, Scoliosis who presented to the ED for hypothermia and lethargy. Patient's sales service route manager was at bedside reported that the patient was sent back from program because he looked ill appearing on day of admission. She reported that he felt cold and his temperature was in the low 90's. On arrival to the ED patient was found to have a rectal temp of 90.1, P 48, R 20 BP 104/59 Jesus Alberto Hugger was placed core temp now 93.4. Chest Xray image - R-sided infiltrate. Started on Vancomycin and Zosyn for Aspiration Pneumonia. Bolus NS given. Patient admitted to ICU for Septic Shock likely secondary to Aspiration Pneumonia. Rapid Flu Swab - negative for A+B Influenza. Cultures sent off. No recent seizure events and no abnormal movements noted. On Onfi, valium, and topamax. Continue infectious mgmt, follow up ID rec'd. Certainly can lower seizure threshold, thus far stable and remain on current regiment.
--- NOTE | 2018-07-25 12:11 | PN ---
Progress Note (short form) - Note Progress Note: Neurology Chief Complaint: Hypothermia History of Present Illness: This is a 28 y/o young man from the [facility] with a PMHx of: Seizure Disorder, Microcephaly, Profound MR, Paraplegia, Scoliosis who presented to the ED for hypothermia and lethargy. Patient's radial saw operator was at bedside reported that the patient was sent back from program because he looked ill appearing on day of admission. She reported that he felt cold and his temperature was in the low 90's on day of admission. On arrival to the ED patient was found to have a rectal temp of 90.1, P 48, R 20 BP 104/59 Jesus Alberto Hugger was placed core temp now 93.4. Chest Xray image- R-sided infiltrate. Started on Vancomycin and Zosyn for Aspiration Pneumonia. Bolus NS given. Patient admitted to ICU for Septic Shock likely secondary to Aspiration Pneumonia. Rapid Flu Swab - negative for A+B Influenza. Cultures sent off. No recent seizure events and no abnormal movements noted. On Onfi, valium, and topamax. No new or further abnormal movements. Remains in ICU at this time. Active Medications Albuterol Sulfate (Ventolin 0.083% Nebulizer Soln -) 1 amp NEB Q4H PRN PRN Reason: SHORT OF BREATH/WHEEZING Albuterol/Ipratropium (Duoneb -) 1 amp NEB RQID [facility] Last Admin: 07/25/18 07:20 Dose: 1 amp Chlorhexidine Gluconate (Hibiclens For Decolonization -) 1 applic TP HS [facility] Last Admin: 07/24/18 21:27 Dose: 1 applic Clobazam (Onfi -) 15 mg GT BID [facility] Last Admin: 07/25/18 09:23 Dose: 15 mg Diazepam (Valium -) 5 mg GT DAILY [facility] Last Admin: 07/25/18 09:21 Dose: 5 mg Piperacillin Sod/Tazobactam (Sod 3.375 gm/ Dextrose) 50 mls @ 100 mls/hr IVPB Q8H-IV [facility]; Protocol Last Admin: 07/25/18 09:24 Dose: 100 mls/hr Levofloxacin (Levaquin 500 Mg Premixed Ivpb -) 500 mg in 100 mls @ 100 mls/hr IVPB DAILY [facility]; Protocol Last Admin: 07/25/18 09:31 Dose: 100 mls/hr Lactulose (Cephulac (Oral Use)) 20 gm GT BID [facility] Last Admin: 07/25/18 09:24 Dose: 20 gm Methylprednisolone Sodium Succinate (Solu-Medrol -) 40 mg IVPUSH DAILY [facility] Last Admin: 07/25/18 09:21 Dose: 40 mg Mupirocin (Bactroban Ointment (For Decolonization) -) 1 applic NS BID [facility] Stop: 07/28/18 21:59 Last Admin: 07/25/18 11:00 Dose: 1 applic Pantoprazole Sodium (Protonix Iv) 40 mg IVPUSH DAILY [facility] Last Admin: 07/25/18 09:24 Dose: 40 mg Simethicone (Mylicon Liquid -) 40 mg GT BID [facility] Last Admin: 07/25/18 09:22 Dose: 40 mg Topiramate (Topamax -) 100 mg GT BID [facility] Last Admin: 07/25/18 09:21 Dose: 100 mg Physical Examination Vital Signs Period Temp Pulse Resp BP Sys/Saha Pulse Ox Last 24 Hr 96.2 F-99.0 F 83-109 15-22 82-106/43-64 99-99 Constitutional: Yes: No Distress, Calm, Other (Unresponsive) Eyes: Yes: Conjunctiva Clear, PERRL HENT: Yes: Other (Microcephaly) Neck: Yes: WNL, Supple, Trachea Midline Cardiovascular: Yes: Regular Rate and Rhythm, S1, S2 Respiratory: Yes: Rhonchi (Coarse, throughout), Wheezes, Other (on NRB) Gastrointestinal: Yes: Soft, Distention, Hypoactive Bowel Sounds, Other (PEG- intact) Renal/: Yes: Incontinence Breast(s): Yes: WNL Edema: No Peripheral Pulses WNL: Yes Integumentary: Yes: Erythema (groin), Pressure Ulcer (Stage I Coccyx), Rash ( groin) Neurological: Yes: Pre-Existing Deficit, Unresponsive Labs: CBCD WBC 9.7 K/mm3 (4.0-10.0) 07/25/18 05:30 RBC 3.22 M/mm3 (4.00-5.60) L 07/25/18 05:30 Hgb 10.6 GM/dL (11.7-16.9) L 07/25/18 05:30 Hct 34.1 % (35.4-49) L 07/25/18 05:30 MCV 106.0 fl (80-96) H 07/25/18 05:30 MCHC 31.1 g/dl (32.0-35.9) L 07/25/18 05:30 RDW 15.5 % (11.9-15.9) 07/25/18 05:30 Plt Count 367 K/MM3 (134-434) 07/25/18 05:30 MPV 8.2 fl (7.5-11.1) 07/25/18 05:30 CMP Sodium 146 mmol/L (136-145) H 07/25/18 05:30 Potassium 4.3 mmol/L (3.5-5.1) 07/25/18 05:30 Chloride 117 mmol/L (98-107) H 07/25/18 05:30 Carbon Dioxide 25 mmol/L (21-32) 07/25/18 05:30 Anion Gap 4 MMOL/L (8-16) L 07/25/18 05:30 BUN 19 mg/dL (7-18) H 07/25/18 05:30 Creatinine 1.4 mg/dL (0.55-1.3) H 07/25/18 05:30 Creat Clearance w eGFR 59.92 (>60) 07/25/18 05:30 Random Glucose 120 mg/dL (74-106) H 07/25/18 05:30 Calcium 8.3 mg/dL (8.5-10.1) L 07/25/18 05:30 Total Bilirubin 0.3 mg/dL (0.2-1) 07/25/18 05:30 AST 21 U/L (15-37) 07/25/18 05:30 ALT 29 U/L (13-61) 07/25/18 05:30 Alkaline Phosphatase 201 U/L (45-117) H 07/25/18 05:30 Total Protein 6.2 g/dl (6.4-8.2) L 07/25/18 05:30 Albumin 2.4 g/dl (3.4-5.0) L 07/25/18 05:30 CARDIAC ENZYMES Troponin I < 0.02 ng/ml (0.00-0.05) 07/23/18 17:10 Diagnostic CXRAY - completed Plan: This is a 28 y/o young man from the [facility] with a PMHx of: Seizure Disorder, Microcephaly, Profound MR, Paraplegia, Scoliosis who presented to the ED for hypothermia and lethargy. Patient's radial saw operator was at bedside reported that the patient was sent back from program because he looked ill appearing on day of admission. She reported that he felt cold and his temperature was in the low 90's. On arrival to the ED patient was found to have a rectal temp of 90.1, P 48, R 20 BP 104/59 Jesus Alberto Hugger was placed core temp now 93.4. Chest Xray image - R-sided infiltrate. Started on Vancomycin and Zosyn for Aspiration Pneumonia. Bolus NS given. Patient admitted to ICU for Septic Shock likely secondary to Aspiration Pneumonia. Rapid Flu Swab - negative for A+B Influenza. Cultures sent off. No recent seizure events and no abnormal movements noted. On Onfi, valium, and topamax. Continue infectious mgmt, follow up ID rec'd. Certainly can lower seizure threshold, thus far stable and remain on current regiment. Remains in close monitoring in ICU, neurologically without new events. Critical care time 40 mins.
[2018-07-25] MEDS ORDERED: LORazepam 2 MG/ML SDV VIAL IVPUSH PRN (13:31)
[2018-07-25 13:58] LABS: MACROCYTOSIS 1+; PLATELET ESTIMATE ADEQUATE
--- NOTE | 2018-07-25 19:23 | PN ---
Physical Exam: SUBJECTIVE: Patient seen and examined in the ICU. remains congested requiring frequent suctioning. on venti mask. OBJECTIVE: Vital Signs Period Temp Pulse Resp BP Sys/Saha Pulse Ox Last 24 Hr 96.2 F-98.1 F 83-109 15-22 91-111/50-64 99-99 GENERAL: profound MR HEAD: microcephaly EYES: conjunctiva clear. No ptosis. ENT: Ears normal, nares patent, oropharynx clear without exudates,dry mucous membranes. NECK: Trachea midline, full range of motion, supple. LUNGS: congestion of upper and lower lobes. on supplemental oxygen HEART: Regular rate and rhythm, S1, S2 without murmur, rub or gallop. ABDOMEN: +peg tube EXTREMITIES: contracted, deformity NEUROLOGICAL: profound MR Laboratory Results - last 24 hr 07/24/18 07/25/18 07/25/18 09:09 05:30 05:30 WBC 9.7 RBC 3.22 L Hgb 10.6 L Hct 34.1 L MCV 106.0 H MCH 33.0 MCHC 31.1 L RDW 15.5 Plt Count 367 MPV 8.2 Absolute Neuts (auto) 7.4 Neutrophils % 76.5 Lymphocytes % 16.3 Monocytes % 6.7 Eosinophils % 0.4 Basophils % 0.1 Nucleated RBC % 0 Platelet Estimate Adequate Macrocytosis 1+ Sodium 146 H Potassium 4.3 Chloride 117 H Carbon Dioxide 25 Anion Gap 4 L BUN 19 H Creatinine 1.4 H Creat Clearance w eGFR 59.92 POC Glucometer [phone] Random Glucose 120 H Calcium 8.3 L Phosphorus 3.1 Magnesium 2.4 Total Bilirubin 0.3 AST 21 ALT 29 Alkaline Phosphatase 201 H Total Protein 6.2 L Albumin 2.4 L Active Medications Generic Name Dose Route Start Last Admin Trade Name Freq PRN Reason Stop Dose Admin Albuterol Sulfate 1 amp 07/24/18 14:18 Ventolin 0.083% Nebulizer Soln - NEB Q4H PRN SHORT OF BREATH/WHEEZING Albuterol/Ipratropium 1 amp 07/24/18 08:00 07/25/18 16:37 Duoneb - NEB 1 amp RQID [facility] Administration Chlorhexidine Gluconate 1 applic 07/23/18 22:00 07/24/18 21:27 Hibiclens For Decolonization - TP 1 applic HS [facility] Administration Clobazam 15 mg 01/10/19 22:00 07/25/18 09:23 Onfi - GT 15 mg BID [facility] Administration Diazepam 5 mg 07/24/18 10:00 07/25/18 09:21 Valium - GT 5 mg DAILY [facility] Administration Piperacillin Sod/Tazobactam 50 mls @ 100 mls/hr 07/24/18 18:00 07/25/18 17:47 Sod 3.375 gm/ Dextrose IVPB 100 mls/hr Q8H-IV [facility] Administration Protocol Levofloxacin 500 mg in 100 mls @ 100 mls/hr 07/24/18 20:00 07/25/18 09:31 Levaquin 500 Mg Premixed Ivpb - IVPB 100 mls/hr DAILY [facility] Administration Protocol Lactulose 20 gm 07/23/18 22:00 07/25/18 09:24 Cephulac (Oral Use) GT 20 gm BID [facility] Administration Lorazepam 1 mg 07/25/18 13:31 Ativan Injection - IVPUSH Q6H PRN seizures Methylprednisolone Sodium Succinate 40 mg 07/24/18 10:00 07/25/18 09:21 Solu-Medrol - IVPUSH 40 mg DAILY [facility] Administration Mupirocin 1 applic 07/23/18 22:00 07/25/18 11:00 Bactroban Ointment (For Decolonization) - NS 07/28/18 21:59 1 applic BID [facility] Administration Pantoprazole Sodium 40 mg 07/25/18 10:00 07/25/18 09:24 Protonix Iv IVPUSH 40 mg DAILY [facility] Administration Simethicone 40 mg 07/23/18 22:00 07/25/18 09:22 Mylicon Liquid - GT 40 mg BID [facility] Administration Topiramate 100 mg 07/23/18 22:00 07/25/18 09:21 Topamax - GT 100 mg BID [facility] Administration ASSESSMENT/PLAN: Patient is a 28 year old male with a significant past medical history of seizure disorder, microcephaly, profound MR, paraplegia, scoliosis. Who presents to the ED for hypothermia and lethargy. On arrival to the ED patient was found to have a rectal temp of 90.1, P 48, R 20 BP 104/59 Jesus Alberto Hugger was placed. Patient in the icu for closer monitoring. ID: Severe sepsis, secondary to aspiration pneumonia ICU monitoring On Jesus Alberto hugger, frequent vitals Blood, urine and sputum cultures pending. Chest Xray image with patchy infiltrates of the right lung On Zosyn, and Levofloxacin ID consulted and following Pulmonary following Pulmonary Asthma, chronic On nebulilzers Pulm following. frequent suctioning Neuro: Seizure disorder precautions maintained had a seizure overnight on ativan 1mg prn fen On NS Replete lytes prn on jevity feeds DVT ppx SCDs Heparin SQ Code Status: Full Code Dispo: Requires Inpatient Care Visit type - Emergency Visit Emergency Visit: Yes ED Registration Date: 07/23/18 Care time: The patient presented to the Emergency Department on the above date and was hospitalized for further evaluation of their emergent condition. - New Patient This patient is new to me today: No - Critical Care Critical Care patient: No - Discharge Referral Referred to [facility] No
[2018-07-25] MEDS: CHLORHEXIDINE GLUCONATE 4% CLEANSER FOR DECOLONIZATION TP SCH (21:51)
[2018-07-26] MEDS: PIPERACILLIN/TAZOB 3.375 GM 3.375 GM in DEXTROSE 5%-WATER - 50 ML IVPB SCH ×3 (01:22→17:01)
[2018-07-26 06:54] LABS: HEMATOCRIT 34.9 % (35.4-49); HEMOGLOBIN 10.9 GM/dL (11.7-16.9); MCH 33.5 pg (25.7-33.7); MCHC 31.2 g/dl (32.0-35.9); MEAN CELL VOLUME 107.2 fl (80-96); MEAN PLT VOLUME 8.2 fl (7.5-11.1); PLATELET COUNT 360 K/MM3 (134-434); RBC 3.26 M/mm3 (4.00-5.60); RDW 15.9 % (11.9-15.9); WHITE BLOOD COUNT 7.4 K/mm3 (4.0-10.0)
[2018-07-26 07:00] LABS: ANION GAP 6 MMOL/L (8-16); BLOOD UREA NITROGEN 21 mg/dL (7-18); CALCIUM 8.6 mg/dL (8.5-10.1); CHLORIDE 117 mmol/L (98-107); CO2 24 mmol/L (21-32); CREATININE 1.3 mg/dL (0.55-1.3); GLUCOSE,RANDOM 114 mg/dL (74-106); MAGNESIUM 2.3 mg/dL (1.8-2.4); PHOSPHOROUS 3.3 mg/dL (2.5-4.9); POTASSIUM 4.3 mmol/L (3.5-5.1); SODIUM 148 mmol/L (136-145)
[2018-07-26] MEDS: ALBUTEROL SO4 2.5/IPRATROPIUM 0.5 INH SOL 3 ML VIAL.NEB. NEB SCH ×4 (07:02→20:10)
--- NOTE | 2018-07-26 09:10 | PN ---
Physical Exam: SUBJECTIVE: Patient seen and examined in the icu. non verbal at baseline, more awake and alert OBJECTIVE: on a venti mask 50%, vitals stable. patient to be transferred to [facility] Vital Signs Period Temp Pulse Resp BP Sys/Saha Pulse Ox Last 24 Hr 97.1 F-98.2 F 78-103 18-22 95-114/50-83 95-99 GENERAL: profound MR HEAD: microcephaly EYES: conjunctiva clear. No ptosis. ENT: Ears normal, nares patent, oropharynx clear without exudates,dry mucous membranes. NECK: Trachea midline, full range of motion, supple. LUNGS: congestion of upper and lower lobes. on supplemental oxygen HEART: Regular rate and rhythm, S1, S2 without murmur, rub or gallop. ABDOMEN: +peg tube EXTREMITIES: contracted, deformity NEUROLOGICAL: profound MR Laboratory Results - last 24 hr 07/25/18 07/26/18 07/26/18 05:30 05:30 05:30 WBC 7.4 RBC 3.26 L Hgb 10.9 L Hct 34.9 L MCV 107.2 H MCH 33.5 MCHC 31.2 L RDW 15.9 Plt Count 360 MPV 8.2 Platelet Estimate Adequate Macrocytosis 1+ Sodium 148 H Potassium 4.3 Chloride 117 H Carbon Dioxide 24 Anion Gap 6 L BUN 21 H Creatinine 1.3 Creat Clearance w eGFR > 60 Random Glucose 114 H Calcium 8.6 Phosphorus 3.3 Magnesium 2.3 Active Medications Generic Name Dose Route Start Last Admin Trade Name Freq PRN Reason Stop Dose Admin Albuterol Sulfate 1 amp 07/24/18 14:18 Ventolin 0.083% Nebulizer Soln - NEB Q4H PRN SHORT OF BREATH/WHEEZING Albuterol/Ipratropium 1 amp 07/24/18 08:00 07/26/18 07:02 Duoneb - NEB 1 amp RQID [facility] Administration Chlorhexidine Gluconate 1 applic 07/23/18 22:00 07/25/18 21:51 Hibiclens For Decolonization - TP 1 applic HS [facility] Administration Clobazam 15 mg 07/23/18 22:00 07/25/18 21:53 Onfi - GT 15 mg BID [facility] Administration Diazepam 5 mg 07/24/18 10:00 07/25/18 09:21 Valium - GT 5 mg DAILY [facility] Administration Piperacillin Sod/Tazobactam 50 mls @ 100 mls/hr 07/24/18 18:00 07/26/18 01:22 Sod 3.375 gm/ Dextrose IVPB 100 mls/hr Q8H-IV [facility] Administration Protocol Levofloxacin 500 mg in 100 mls @ 100 mls/hr 07/24/18 20:00 07/25/18 09:31 Levaquin 500 Mg Premixed Ivpb - IVPB 100 mls/hr DAILY [facility] Administration Protocol Lactulose 20 gm 07/23/18 22:00 07/25/18 21:51 Cephulac (Oral Use) GT 20 gm BID [facility] Administration Lorazepam 1 mg 07/25/18 13:31 Ativan Injection - IVPUSH Q6H PRN seizures Methylprednisolone Sodium Succinate 40 mg 07/24/18 10:00 07/25/18 09:21 Solu-Medrol - IVPUSH 40 mg DAILY [facility] Administration Mupirocin 1 applic 07/23/18 22:00 07/25/18 21:52 Bactroban Ointment (For Decolonization) - NS 07/28/18 21:59 1 applic BID [facility] Administration Pantoprazole Sodium 40 mg 07/25/18 10:00 07/25/18 09:24 Protonix Iv IVPUSH 40 mg DAILY [facility] Administration Simethicone 40 mg 07/23/18 22:00 07/25/18 21:52 Mylicon Liquid - GT 40 mg BID [facility] Administration Topiramate 100 mg 07/23/18 22:00 07/25/18 21:53 Topamax - GT 100 mg BID [facility] Administration ASSESSMENT/PLAN: Patient is a 28 year old male with a significant past medical history of seizure disorder, microcephaly, profound MR, paraplegia, scoliosis. Who presents to the ED for hypothermia and lethargy. On arrival to the ED patient was found to have a rectal temp of 90.1, P 48, R 20 BP 104/59 Jesus Alberto Hugger was placed. Patient in the icu for closer monitoring. ID: Severe sepsis, secondary to aspiration pneumonia vitals stable, no longer hypothermic Blood cultures negative, urine + stephanie. morg.- Chest Xray image with patchy infiltrates of the right lung, requires venti mask @ 50% to keep oxygen stable. On Zosyn, and Levofloxacin ID consulted and following Pulmonary following Pulmonary Asthma, chronic On nebulilzers Pulm following. frequent suctioning Neuro: Seizure disorder precautions maintained no seizures overnight On topamax, onfi, valium on ativan 1mg prn for breakthrough seizures fen Replete lytes prn on jevity feeds DVT ppx SCDs Heparin SQ Code Status: Full Code Dispo: Requires Inpatient Care Visit type - Emergency Visit Emergency Visit: Yes ED Registration Date: 07/23/18 Care time: The patient presented to the Emergency Department on the above date and was hospitalized for further evaluation of their emergent condition. - New Patient This patient is new to me today: No - Critical Care Critical Care patient: Yes Total Critical Care Time (in minutes): 45 Critical Care Statement: The care of this patient involved high complexity decision making to prevent further life threatening deterioration of the patient 's condition and/or to evaluate & treat vital organ system(s) failure or risk of failure.
--- NOTE | 2018-07-26 09:31 | PN ---
Progress Note (short form) - Note Progress Note: NAD Vital Signs Period Temp Pulse Resp BP Sys/Saha Pulse Ox Last 24 Hr 97.1 F-98.2 F 78-103 18-22 95-114/50-83 95-99 cor-rrr lungs scattered rhonchi abd soft,nt +gt ext no edema CBC, BMP 07/26/18 05:30 07/26/18 05:30 Microbiology 07/23/18 17:51 Urine - Urine - Catheterized Urine Culture - Final Morganella Morganii Escherichia Coli 07/23/18 17:10 Blood - Peripheral Venous Blood Culture - Preliminary NO GROWTH OBTAINED AFTER 48 HOURS, INCUBATION TO CONTINUE FOR 3 DAYS. 07/23/18 17:10 Blood - Peripheral Venous Blood Culture - Preliminary NO GROWTH OBTAINED AFTER 48 HOURS, INCUBATION TO CONTINUE FOR 3 DAYS. 07/24/18 09:49 Urine - Urine Bates Legionella Antigen - Preliminary 07/24/18 09:49 Urine - Urine Bates Streptococcus pneumoniae Antigen (M - Final a/p profound developmental disabilities pneumonia urinary retention-?UTI recurrent seizures (known seizure disorder) history of kleb ESBL uti in January 2018 continue zosyn, possible aspiration d/c levaquin plan to transition to augmentin in am l why is he on doxycycline and bactrim at the DC? please get records from [facility] Problem List - Problems (1) Seizure Code(s): R56.9 - UNSPECIFIED CONVULSIONS (2) Hypothermia Code(s): T68.XXXA - HYPOTHERMIA, INITIAL ENCOUNTER Qualifiers: Encounter type: initial encounter Qualified Code(s): T68.XXXA - Hypothermia , initial encounter (3) Sepsis Code(s): A41.9 - SEPSIS, UNSPECIFIED ORGANISM Qualifiers: Sepsis type: sepsis due to unspecified organism Qualified Code(s): A41.9 - Sepsis, unspecified organism (4) PNA (pneumonia) Code(s): J18.9 - PNEUMONIA, UNSPECIFIED ORGANISM Qualifiers: Pneumonia type: aspiration pneumonia Aspiration pneumonia type: unspecified Laterality: unspecified laterality Lung location: unspecified part of lung Qualified Code(s): J69.0 - Pneumonitis due to inhalation of food and vomit (5) UTI (urinary tract infection) Code(s): N39.0 - URINARY TRACT INFECTION, SITE NOT SPECIFIED Qualifiers: Urinary tract infection type: site unspecified Hematuria presence: without hematuria Qualified Code(s): N39.0 - Urinary tract infection, site not specified
--- NOTE | 2018-07-26 09:35 | PN ---
Progress Note (short form) - Note Progress Note: Seen and examined in the ICU Cont on Venti mask requires prn suction by RN BP stable afebrile SCr improved Current Medications Albuterol Sulfate (Ventolin 0.083% Nebulizer Soln -) 1 amp NEB Q4H PRN PRN Reason: SHORT OF BREATH/WHEEZING Albuterol/Ipratropium (Duoneb -) 1 amp NEB RQID [facility] Last Admin: 07/26/18 07:02 Dose: 1 amp Chlorhexidine Gluconate (Hibiclens For Decolonization -) 1 applic TP HS [facility] Last Admin: 07/25/18 21:51 Dose: 1 applic Clobazam (Onfi -) 15 mg GT BID [facility] Last Admin: 07/25/18 21:53 Dose: 15 mg Diazepam (Valium -) 5 mg GT DAILY [facility] Last Admin: 07/25/18 09:21 Dose: 5 mg Piperacillin Sod/Tazobactam (Sod 3.375 gm/ Dextrose) 50 mls @ 100 mls/hr IVPB Q8H-IV [facility]; Protocol Last Admin: 07/26/18 01:22 Dose: 100 mls/hr Lactulose (Cephulac (Oral Use)) 20 gm GT BID [facility] Last Admin: 07/25/18 21:51 Dose: 20 gm Lorazepam (Ativan Injection -) 1 mg IVPUSH Q6H PRN PRN Reason: seizures Methylprednisolone Sodium Succinate (Solu-Medrol -) 40 mg IVPUSH DAILY [facility] Last Admin: 07/25/18 09:21 Dose: 40 mg Mupirocin (Bactroban Ointment (For Decolonization) -) 1 applic NS BID [facility] Stop: 07/28/18 21:59 Last Admin: 07/25/18 21:52 Dose: 1 applic Pantoprazole Sodium (Protonix Iv) 40 mg IVPUSH DAILY [facility] Last Admin: 07/25/18 09:24 Dose: 40 mg Simethicone (Mylicon Liquid -) 40 mg GT BID [facility] Last Admin: 07/25/18 21:52 Dose: 40 mg Topiramate (Topamax -) 100 mg GT BID [facility] Last Admin: 07/25/18 21:53 Dose: 100 mg Vital Signs Period Temp Pulse Resp BP Sys/Saha Pulse Ox Last 24 Hr 97.1 F-98.2 F 78-103 18- 95-114/50-83 95-99 Intake & Output 07/23/18 07/24/18 07/25/18 07/26/18 23:59 23:59 23:59 23:59 Intake Total 2060 3090 710 Output Total 1550 1750 400 Balance 510 1340 310 Weight 40.823 kg 40.823 kg Exam: productive cough Neuro: PERRL, non verbal, does not follow commands Pulm: improved bilateral rhonchi CV: RRR Abd: SNTND Ext: contracted, trace Le edema CBC, BMP 07/26/18 05:30 07/26/18 05:30 CXR: relatively unchanged. elevated right carla diaphragm. left sided consolidation w/ mild PVC Assessment/Plan Suspected Sepsis Severe MR Seizure D/O Wheelchair bound Chronic aspirations with suspected new episode of aspiration pneumonitis versus HCAP Breakthrough Seizures Hypothermia ABX per ID: Zosyn/Levaquin AEDs as ordered / Neuro evaluation O2 to maintain saturation > 90% Aspiration precautions Follow cultures Daily Medrol BD TX PRN stable for floor transfer Javad ACNP Critical care time spent in reviewing chart, evaluating patient and formulating plan - 36 minutes
[2018-07-26] MEDS ORDERED: PT OWN MED DRAWER 7, Y5N ONE ×2 (09:41→21:12)
[2018-07-26] MEDS ORDERED: PIPERACILLIN/TAZOBACTAM 3.375 GM VIAL IVPB ONE ×2 (09:41→16:50)
[2018-07-26] MEDS ORDERED: DEXTROSE 5%-WATER - 50 ML IVPB ONE ×2 (09:42→16:50)
[2018-07-26] MEDS: LACTULOSE 20 GM/30 ML UDC (FOR ORAL USE ONLY) GT SCH ×2 (09:45→21:22)
[2018-07-26] MEDS: MUPIROCIN 2% TOPICAL OINTMENT FOR DECOLONIZATION NS SCH ×2 (09:45→21:23)
[2018-07-26] MEDS: methylPREDNISolone NA SUCC 40 MG/1 ML VIAL IVPUSH SCH (09:46)
[2018-07-26] MEDS: PANTOPRAZOLE SODIUM 40 MG VIAL IVPUSH SCH (09:46)
[2018-07-26] MEDS: cloBAZam 10 MG TABLET GT SCH ×2 (09:46→21:22)
[2018-07-26] MEDS: diazePAM 5 MG TABLET GT SCH (09:47)
[2018-07-26] MEDS: TOPIRAMATE 100 MG TABLET GT SCH ×2 (09:47→21:22)
[2018-07-26] MEDS: SIMETHICONE 40 MG/0.6 ML BOTTLE GT SCH ×2 (09:53→22:50)
--- NOTE | 2018-07-26 12:26 | PN ---
Progress Note (short form) - Note Progress Note: Neurology Chief Complaint: Hypothermia History of Present Illness: This is a 28 y/o young man from the [facility] with a PMHx of: Seizure Disorder, Microcephaly, Profound MR, Paraplegia, Scoliosis who presented to the ED for hypothermia and lethargy. Patient's saw boss was at bedside reported that the patient was sent back from program because he looked ill appearing on day of admission. She reported that he felt cold and his temperature was in the low 90's on day of admission. On arrival to the ED patient was found to have a rectal temp of 90.1, P 48, R 20 BP 104/59 Jesus Alberto Hugger was placed core temp improved to 93.4. Chest Xray image- R-sided infiltrate. Started on Vancomycin and Zosyn for Aspiration Pneumonia. Bolus NS given in ER. Patient admitted to ICU for Septic Shock likely secondary to Aspiration Pneumonia. Rapid Flu Swab - negative for A+B Influenza. Cultures sent off. No recent seizure events and no abnormal movements noted. On Onfi, valium, and topamax. No new or further abnormal movements. Is more interactive and no new deficits. Active Medications Albuterol Sulfate (Ventolin 0.083% Nebulizer Soln -) 1 amp NEB Q4H PRN PRN Reason: SHORT OF BREATH/WHEEZING Albuterol/Ipratropium (Duoneb -) 1 amp NEB RQID [facility] Last Admin: 07/26/18 11:48 Dose: 1 amp Chlorhexidine Gluconate (Hibiclens For Decolonization -) 1 applic TP HS [facility] Last Admin: 07/25/18 21:51 Dose: 1 applic Clobazam (Onfi -) 15 mg GT BID [facility] Last Admin: 07/26/18 09:46 Dose: 15 mg Diazepam (Valium -) 5 mg GT DAILY [facility] Last Admin: 07/26/18 09:47 Dose: 5 mg Piperacillin Sod/Tazobactam (Sod 3.375 gm/ Dextrose) 50 mls @ 100 mls/hr IVPB Q8H-IV [facility]; Protocol Last Admin: 07/26/18 09:46 Dose: 100 mls/hr Lactulose (Cephulac (Oral Use)) 20 gm GT BID [facility] Last Admin: 07/26/18 09:45 Dose: 20 gm Lorazepam (Ativan Injection -) 1 mg IVPUSH Q6H PRN PRN Reason: seizures Methylprednisolone Sodium Succinate (Solu-Medrol -) 40 mg IVPUSH DAILY [facility] Last Admin: 07/26/18 09:46 Dose: 40 mg Mupirocin (Bactroban Ointment (For Decolonization) -) 1 applic NS BID [facility] Stop: 07/28/18 21:59 Last Admin: 07/26/18 09:45 Dose: 1 applic Pantoprazole Sodium (Protonix Iv) 40 mg IVPUSH DAILY [facility] Last Admin: 07/26/18 09:46 Dose: 40 mg Simethicone (Mylicon Liquid -) 40 mg GT BID [facility] Last Admin: 07/26/18 09:53 Dose: 40 mg Topiramate (Topamax -) 100 mg GT BID [facility] Last Admin: 07/26/18 09:47 Dose: 100 mg Physical Examination Vital Signs Temperature 92.3 F L 07/26/18 12:00 Pulse Rate 58 L 07/26/18 12:00 Respiratory Rate 24 H 07/26/18 12:00 Blood Pressure 97/64 07/26/18 12:00 O2 Sat by Pulse Oximetry (%) 95 07/26/18 08:35 Constitutional: Yes: No Distress, Calm, Other (Unresponsive) Eyes: Yes: Conjunctiva Clear, PERRL HENT: Yes: Other (Microcephaly) Neck: Yes: WNL, Supple, Trachea Midline Cardiovascular: Yes: Regular Rate and Rhythm, S1, S2 Respiratory: Yes: Rhonchi (Coarse, throughout), Wheezes, Other (on NRB) Gastrointestinal: Yes: Soft, Distention, Hypoactive Bowel Sounds, Other (PEG- intact) Renal/: Yes: Incontinence Breast(s): Yes: WNL Edema: No Peripheral Pulses WNL: Yes Integumentary: Yes: Erythema (groin), Pressure Ulcer (Stage I Coccyx), Rash ( groin) Neurological: Yes: Pre-Existing Deficit, Unresponsive Labs: CBCD WBC 7.4 K/mm3 (4.0-10.0) 07/26/18 05:30 RBC 3.26 M/mm3 (4.00-5.60) L 07/26/18 05:30 Hgb 10.9 GM/dL (11.7-16.9) L 07/26/18 05:30 Hct 34.9 % (35.4-49) L 07/26/18 05:30 MCV 107.2 fl (80-96) H 07/26/18 05:30 MCHC 31.2 g/dl (32.0-35.9) L 07/26/18 05:30 RDW 15.9 % (11.9-15.9) 07/26/18 05:30 Plt Count 360 K/MM3 (134-434) 07/26/18 05:30 MPV 8.2 fl (7.5-11.1) 07/26/18 05:30 CMP Sodium 148 mmol/L (136-145) H 07/26/18 05:30 Potassium 4.3 mmol/L (3.5-5.1) 07/26/18 05:30 Chloride 117 mmol/L (98-107) H 07/26/18 05:30 Carbon Dioxide 24 mmol/L (21-32) 07/26/18 05:30 Anion Gap 6 MMOL/L (8-16) L 07/26/18 05:30 BUN 21 mg/dL (7-18) H 07/26/18 05:30 Creatinine 1.3 mg/dL (0.55-1.3) 07/26/18 05:30 Creat Clearance w eGFR > 60 (>60) 07/26/18 05:30 Random Glucose 114 mg/dL (74-106) H 07/26/18 05:30 Calcium 8.6 mg/dL (8.5-10.1) 07/26/18 05:30 Total Bilirubin 0.3 mg/dL (0.2-1) 07/25/18 05:30 AST 21 U/L (15-37) 07/25/18 05:30 ALT 29 U/L (13-61) 07/25/18 05:30 Alkaline Phosphatase 201 U/L (45-117) H 07/25/18 05:30 Total Protein 6.2 g/dl (6.4-8.2) L 07/25/18 05:30 Albumin 2.4 g/dl (3.4-5.0) L 07/25/18 05:30 CARDIAC ENZYMES Troponin I < 0.02 ng/ml (0.00-0.05) 07/23/18 17:10 Diagnostic CXRAY - completed Plan: This is a 28 y/o young man from the [facility] with a PMHx of: Seizure Disorder, Microcephaly, Profound MR, Paraplegia, Scoliosis who presented to the ED for hypothermia and lethargy. Patient's saw boss was at bedside reported that the patient was sent back from program because he looked ill appearing on day of admission. She reported that he felt cold and his temperature was in the low 90's on day of admission. On arrival to the ED patient was found to have a rectal temp of 90.1, P 48, R 20 BP 104/59 Jesus Alberto Hugger was placed core temp improved to 93.4 in ER. Chest Xray image- R-sided infiltrate. Started on Vancomycin and Zosyn for Aspiration Pneumonia. Bolus NS given in ER. Patient admitted to ICU for Septic Shock likely secondary to Aspiration Pneumonia. Rapid Flu Swab - negative for A+B Influenza. Cultures sent off. No recent seizure events and no abnormal movements noted. On Onfi, valium, and topamax. No new or further abnormal movements. Continue infectious mgmt, follow up ID rec 'd. Certainly can lower seizure threshold, thus far stable and remain on current regiment. Remains in close monitoring in ICU, neurologically without new events. Continue monitoring for abnormal movements. Critical care time 35 mins.
[2018-07-26] MEDS: CHLORHEXIDINE GLUCONATE 4% CLEANSER FOR DECOLONIZATION TP SCH (21:23)
[2018-07-27] MEDS ORDERED: PIPERACILLIN/TAZOBACTAM 3.375 GM VIAL IVPB ONE ×3 (01:23→17:46)
[2018-07-27] MEDS ORDERED: DEXTROSE 5%-WATER - 50 ML IVPB ONE ×3 (01:23→17:46)
[2018-07-27] MEDS: PIPERACILLIN/TAZOB 3.375 GM 3.375 GM in DEXTROSE 5%-WATER - 50 ML IVPB SCH ×3 (01:34→17:51)
[2018-07-27 06:04] LABS: BASO % 0.2 % (0-2.0); EOS % 3.3 % (0-4.5); HEMOGLOBIN 10.8 GM/dL (11.7-16.9); LYMPH % 25.7 % (8-40); MEAN CELL VOLUME 106.6 fl (80-96); MEAN PLT VOLUME 8.1 fl (7.5-11.1); MONO % 6.3 % (3.8-10.2); NEUT % 64.5 % (42.8-82.8); PLATELET COUNT 360 K/MM3 (134-434); RBC 3.28 M/mm3 (4.00-5.60); WHITE BLOOD COUNT 11.6 K/mm3 (4.0-10.0)
[2018-07-27 06:23] LABS: ALBUMIN 2.7 g/dl (3.4-5.0); ALK PHOS 209 U/L (45-117); ANION GAP 5 MMOL/L (8-16); BILIRUBIN,TOTAL 0.2 mg/dL (0.2-1); BLOOD UREA NITROGEN 24 mg/dL (7-18); CALCIUM 8.7 mg/dL (8.5-10.1); CHLORIDE 119 mmol/L (98-107); CO2 28 mmol/L (21-32); CREATININE 1.3 mg/dL (0.55-1.3); GLUCOSE,RANDOM 78 mg/dL (74-106); MAGNESIUM 2.3 mg/dL (1.8-2.4); POTASSIUM 4.4 mmol/L (3.5-5.1); SGOT/AST 30 U/L (15-37); SGPT/ALT 38 U/L (13-61); SODIUM 152 mmol/L (136-145); TOT PROT 6.9 g/dl (6.4-8.2)
[2018-07-27] MEDS: ALBUTEROL SO4 2.5/IPRATROPIUM 0.5 INH SOL 3 ML VIAL.NEB. NEB SCH ×4 (07:20→20:37)
[2018-07-27] MEDS ORDERED: PT OWN MED DRAWER 7, Y5N ONE ×2 (09:13→20:55)
--- NOTE | 2018-07-27 09:22 | PN ---
Physical Exam: SUBJECTIVE: Patient seen and examined at the [facility]. non verbal at baseline OBJECTIVE: on droplet precautions for rsv - continue on the venti mask Vital Signs Period Temp Pulse Resp BP Sys/Saha Pulse Ox Last 24 Hr 92.3 F-98.6 F 58-108 13-24 90-112/55-84 93-98 GENERAL: profound MR HEAD: microcephaly EYES: conjunctiva clear. No ptosis. ENT: Ears normal, nares patent, oropharynx clear without exudates,dry mucous membranes. NECK: Trachea midline, full range of motion, supple. LUNGS: congestion of upper and lower lobes. on supplemental oxygen-venti mask HEART: Regular rate and rhythm, S1, S2 without murmur, rub or gallop. ABDOMEN: +peg tube EXTREMITIES: contracted, deformity NEUROLOGICAL: profound MR Laboratory Results - last 24 hr 07/25/18 07/27/18 07/27/18 11:05 05:15 05:15 WBC 11.6 H RBC 3.28 L Hgb 10.8 L Hct 35.0 L MCV 106.6 H MCH 33.0 MCHC 31.0 L RDW 16.0 H Plt Count 360 MPV 8.1 Absolute Neuts (auto) 7.5 Neutrophils % 64.5 Lymphocytes % 25.7 D Monocytes % 6.3 Eosinophils % 3.3 D Basophils % 0.2 Nucleated RBC % 0 Sodium 152 H Potassium 4.4 Chloride 119 H Carbon Dioxide 28 Anion Gap 5 L BUN 24 H Creatinine 1.3 Creat Clearance w eGFR > 60 Random Glucose 78 Calcium 8.7 Magnesium 2.3 Total Bilirubin 0.2 AST 30 ALT 38 Alkaline Phosphatase 209 H Total Protein 6.9 Albumin 2.7 L RSV Rapid Positive Active Medications Generic Name Dose Route Start Last Admin Trade Name Freq PRN Reason Stop Dose Admin Albuterol Sulfate 1 amp 07/24/18 14:18 Ventolin 0.083% Nebulizer Soln - NEB Q4H PRN SHORT OF BREATH/WHEEZING Albuterol/Ipratropium 1 amp 07/24/18 08:00 07/27/18 07:20 Duoneb - NEB 1 amp RQID [facility] Administration Chlorhexidine Gluconate 1 applic 07/23/18 22:00 07/26/18 21:23 Hibiclens For Decolonization - TP 1 applic HS [facility] Administration Clobazam 15 mg 07/23/18 22:00 07/26/18 21:22 Onfi - GT 15 mg BID [facility] Administration Diazepam 5 mg 07/24/18 10:00 07/26/18 09:47 Valium - GT 5 mg DAILY [facility] Administration Piperacillin Sod/Tazobactam 50 mls @ 100 mls/hr 07/24/18 18:00 07/27/18 01:34 Sod 3.375 gm/ Dextrose IVPB 100 mls/hr Q8H-IV [facility] Administration Protocol Lactulose 20 gm 07/23/18 22:00 07/26/18 21:22 Cephulac (Oral Use) GT 20 gm BID [facility] Administration Lorazepam 1 mg 07/25/18 13:31 Ativan Injection - IVPUSH Q6H PRN seizures Methylprednisolone Sodium Succinate 40 mg 07/24/18 10:00 07/26/18 09:46 Solu-Medrol - IVPUSH 40 mg DAILY [facility] Administration Mupirocin 1 applic 07/23/18 22:00 07/26/18 21:23 Bactroban Ointment (For Decolonization) - NS 07/28/18 21:59 1 applic BID [facility] Administration Pantoprazole Sodium 40 mg 07/25/18 10:00 07/26/18 09:46 Protonix Iv IVPUSH 40 mg DAILY [facility] Administration Simethicone 40 mg 07/23/18 22:00 07/26/18 22:50 Mylicon Liquid - GT 40 mg BID [facility] Administration Topiramate 100 mg 07/23/18 22:00 07/26/18 21:22 Topamax - GT 100 mg BID [facility] Administration ASSESSMENT/PLAN: Patient is a 28 year old male with a significant past medical history of seizure disorder, microcephaly, profound MR, paraplegia, scoliosis. Who presents to the ED for hypothermia and lethargy. On arrival to the ED patient was found to have a rectal temp of 90.1, P 48, R 20 BP 104/59 Jesus Alberto Hugger was placed. Patient in the icu for closer monitoring. ID: Severe sepsis, secondary to aspiration pneumonia vitals stable, became hypothermic again, and now back on jesus alberto hugger Blood cultures negative, urine + stephanie. morg.-+RSV on droplet precuations Chest Xray image with patchy infiltrates of the right lung, requires venti mask @ 50% to keep oxygen stable. On Zosyn, and Solumedrol ID consulted and following Pulmonary following Pulmonary Asthma, chronic On nebulilzers Pulm following. frequent suctioning. Renal Hyponatremia @ 152, trending up monitor trend Neuro: Seizure disorder precautions maintained no seizures overnight On topamax, onfi, valium on ativan 1mg prn for breakthrough seizures fen Replete lytes prn on jevity feeds DVT ppx SCDs Heparin SQ Code Status: Full Code Dispo: Requires Inpatient Care Visit type - Emergency Visit Emergency Visit: Yes ED Registration Date: 07/23/18 Care time: The patient presented to the Emergency Department on the above date and was hospitalized for further evaluation of their emergent condition. - New Patient This patient is new to me today: No - Critical Care Critical Care patient: No - Discharge Referral Referred to [facility] No
[2018-07-27] MEDS: LACTULOSE 20 GM/30 ML UDC (FOR ORAL USE ONLY) GT SCH ×2 (09:52→21:02)
[2018-07-27] MEDS: SIMETHICONE 40 MG/0.6 ML BOTTLE GT SCH ×2 (09:52→21:03)
[2018-07-27] MEDS: MUPIROCIN 2% TOPICAL OINTMENT FOR DECOLONIZATION NS SCH ×2 (09:52→21:04)
--- NOTE | 2018-07-27 09:52 | PN ---
Progress Note (short form) - Note Progress Note: Neurology Chief Complaint: Hypothermia History of Present Illness: This is a 28 y/o young man from the [facility] with a PMHx of: Seizure Disorder, Microcephaly, Profound MR, Paraplegia, Scoliosis who presented to the ED for hypothermia and lethargy. Patient's human resources intern was at bedside reported that the patient was sent back from program because he looked ill appearing on day of admission. She reported that he felt cold and his temperature was in the low 90's on day of admission. On arrival to the ED patient was found to have a rectal temp of 90.1, P 48, R 20 BP 104/59 Jesus Alberto Hugger was placed core temp improved to 93.4. Chest Xray image- R-sided infiltrate. Started on Vancomycin and Zosyn for Aspiration Pneumonia. Bolus NS given in ER. Patient admitted to ICU for Septic Shock likely secondary to Aspiration Pneumonia. Rapid Flu Swab - negative for A+B Influenza. Cultures sent off. No recent seizure events and no abnormal movements noted. On Onfi, valium, and topamax. No subsequent seizure events, discussed and confirmed with ICU nurse. Patient appears stable and comfortable at this time. Active Medications Albuterol Sulfate (Ventolin 0.083% Nebulizer Soln -) 1 amp NEB Q4H PRN PRN Reason: SHORT OF BREATH/WHEEZING Albuterol/Ipratropium (Duoneb -) 1 amp NEB RQID [facility] Last Admin: 07/27/18 07:20 Dose: 1 amp Chlorhexidine Gluconate (Hibiclens For Decolonization -) 1 applic TP HS [facility] Last Admin: 07/26/18 21:23 Dose: 1 applic Clobazam (Onfi -) 15 mg GT BID [facility] Last Admin: 07/26/18 21:22 Dose: 15 mg Diazepam (Valium -) 5 mg GT DAILY [facility] Last Admin: 07/26/18 09:47 Dose: 5 mg Piperacillin Sod/Tazobactam (Sod 3.375 gm/ Dextrose) 50 mls @ 100 mls/hr IVPB Q8H-IV [facility]; Protocol Last Admin: 07/27/18 01:34 Dose: 100 mls/hr Lactulose (Cephulac (Oral Use)) 20 gm GT BID [facility] Last Admin: 01/13/19 21:22 Dose: 20 gm Lorazepam (Ativan Injection -) 1 mg IVPUSH Q6H PRN PRN Reason: seizures Methylprednisolone Sodium Succinate (Solu-Medrol -) 40 mg IVPUSH DAILY [facility] Last Admin: 07/26/18 09:46 Dose: 40 mg Mupirocin (Bactroban Ointment (For Decolonization) -) 1 applic NS BID [facility] Stop: 07/28/18 21:59 Last Admin: 07/26/18 21:23 Dose: 1 applic Pantoprazole Sodium (Protonix Iv) 40 mg IVPUSH DAILY [facility] Last Admin: 07/26/18 09:46 Dose: 40 mg Simethicone (Mylicon Liquid -) 40 mg GT BID [facility] Last Admin: 07/26/18 22:50 Dose: 40 mg Topiramate (Topamax -) 100 mg GT BID [facility] Last Admin: 07/26/18 21:22 Dose: 100 mg Physical Examination Vital Signs Period Temp Pulse Resp BP Sys/Saha Pulse Ox Last 24 Hr 92.3 F-98.6 F 58-108 13-24 90-112/55-84 93-98 Constitutional: Yes: No Distress, Calm, Other (Unresponsive) Eyes: Yes: Conjunctiva Clear, PERRL HENT: Yes: Other (Microcephaly) Neck: Yes: WNL, Supple, Trachea Midline Cardiovascular: Yes: Regular Rate and Rhythm, S1, S2 Respiratory: Yes: Rhonchi (Coarse, throughout), Wheezes, Other (on NRB) Gastrointestinal: Yes: Soft, Distention, Hypoactive Bowel Sounds, Other (PEG- intact) Renal/: Yes: Incontinence Breast(s): Yes: WNL Edema: No Peripheral Pulses WNL: Yes Integumentary: Yes: Erythema (groin), Pressure Ulcer (Stage I Coccyx), Rash ( groin) Neurological: Yes: Pre-Existing Deficit, Unresponsive Labs: CBCD WBC 11.6 K/mm3 (4.0-10.0) H 07/27/18 05:15 RBC 3.28 M/mm3 (4.00-5.60) L 07/27/18 05:15 Hgb 10.8 GM/dL (11.7-16.9) L 07/27/18 05:15 Hct 35.0 % (35.4-49) L 07/27/18 05:15 MCV 106.6 fl (80-96) H 07/27/18 05:15 MCHC 31.0 g/dl (32.0-35.9) L 07/27/18 05:15 RDW 16.0 % (11.9-15.9) H 07/27/18 05:15 Plt Count 360 K/MM3 (134-434) 07/27/18 05:15 MPV 8.1 fl (7.5-11.1) 07/27/18 05:15 CMP Sodium 152 mmol/L (136-145) H 07/27/18 05:15 Potassium 4.4 mmol/L (3.5-5.1) 07/27/18 05:15 Chloride 119 mmol/L (98-107) H 07/27/18 05:15 Carbon Dioxide 28 mmol/L (21-32) 07/27/18 05:15 Anion Gap 5 MMOL/L (8-16) L 07/27/18 05:15 BUN 24 mg/dL (7-18) H 07/27/18 05:15 Creatinine 1.3 mg/dL (0.55-1.3) 07/27/18 05:15 Creat Clearance w eGFR > 60 (>60) 07/27/18 05:15 Random Glucose 78 mg/dL (74-106) 07/27/18 05:15 Calcium 8.7 mg/dL (8.5-10.1) 07/27/18 05:15 Total Bilirubin 0.2 mg/dL (0.2-1) 07/27/18 05:15 AST 30 U/L (15-37) 07/27/18 05:15 ALT 38 U/L (13-61) 07/27/18 05:15 Alkaline Phosphatase 209 U/L (45-117) H 07/27/18 05:15 Total Protein 6.9 g/dl (6.4-8.2) 07/27/18 05:15 Albumin 2.7 g/dl (3.4-5.0) L 07/27/18 05:15 CARDIAC ENZYMES Troponin I < 0.02 ng/ml (0.00-0.05) 07/23/18 17:10 Diagnostic CXRAY - completed Plan: This is a 28 y/o young man from the [facility] with a PMHx of: Seizure Disorder, Microcephaly, Profound MR, Paraplegia, Scoliosis who presented to the ED for hypothermia and lethargy. Patient's human resources intern was at bedside reported that the patient was sent back from program because he looked ill appearing on day of admission. She reported that he felt cold and his temperature was in the low 90's on day of admission. On arrival to the ED patient was found to have a rectal temp of 90.1, P 48, R 20 BP 104/59 Jesus Alberto Hugger was placed core temp improved to 93.4 in ER. Chest Xray image- R-sided infiltrate. Started on Vancomycin and Zosyn for Aspiration Pneumonia. Bolus NS given in ER. Patient admitted to ICU for Septic Shock likely secondary to Aspiration Pneumonia. Rapid Flu Swab - negative for A+B Influenza. Cultures sent off. No recent seizure events and no abnormal movements noted. On Onfi, valium, and topamax. No new or further abnormal movements. Has been seizure free, confirmed with nurse. Continue infectious mgmt, follow up ID rec'd. Seizures thus far stable and remain on current regiment. Remains in close monitoring in ICU, neurologically without new events. Continue monitoring for abnormal movements. Critical care time 35 mins.
[2018-07-27] MEDS: PANTOPRAZOLE SODIUM 40 MG VIAL IVPUSH SCH (09:53)
[2018-07-27] MEDS: methylPREDNISolone NA SUCC 40 MG/1 ML VIAL IVPUSH SCH (09:53)
[2018-07-27] MEDS: cloBAZam 10 MG TABLET GT SCH ×2 (09:53→21:02)
[2018-07-27] MEDS: diazePAM 5 MG TABLET GT SCH (09:53)
[2018-07-27] MEDS: TOPIRAMATE 100 MG TABLET GT SCH ×2 (09:53→21:02)
--- NOTE | 2018-07-27 12:31 | PN ---
Teaching Attending Note Name of Resident: Bobby Wong ATTENDING PHYSICIAN STATEMENT I saw and evaluated the patient. I reviewed the resident's note and discussed the case with the resident. I agree with the resident's findings and plan as documented. SUBJECTIVE: Patient seen and examined in the ICU. Awake in NAD on NC O2. No seizure noted. Intake & Output 07/24/18 07/25/18 07/26/18 07/27/18 23:59 23:59 23:59 23:59 Intake Total 2060 3090 1690 385 Output Total 1550 1750 1250 450 Balance 510 1340 440 -65 Weight 90 lb 114 lb Last Vital Signs Temp Pulse Resp BP Pulse Ox 97.5 F L 100 H 22 H 98/63 98 07/27/18 08:00 07/27/18 10:00 07/27/18 10:00 07/27/18 10:00 07/27/18 08:27 Active Medications Albuterol Sulfate (Ventolin 0.083% Nebulizer Soln -) 1 amp NEB Q4H PRN PRN Reason: SHORT OF BREATH/WHEEZING Albuterol/Ipratropium (Duoneb -) 1 amp NEB RQID [facility] Last Admin: 07/27/18 11:30 Dose: 1 amp Chlorhexidine Gluconate (Hibiclens For Decolonization -) 1 applic TP HS [facility] Last Admin: 07/26/18 21:23 Dose: 1 applic Clobazam (Onfi -) 15 mg GT BID [facility] Last Admin: 07/27/18 09:53 Dose: 15 mg Diazepam (Valium -) 5 mg GT DAILY [facility] Last Admin: 07/27/18 09:53 Dose: 5 mg Piperacillin Sod/Tazobactam (Sod 3.375 gm/ Dextrose) 50 mls @ 100 mls/hr IVPB Q8H-IV [facility]; Protocol Last Admin: 07/27/18 09:53 Dose: 100 mls/hr Lactulose (Cephulac (Oral Use)) 20 gm GT BID [facility] Last Admin: 07/27/18 09:52 Dose: 20 gm Lorazepam (Ativan Injection -) 1 mg IVPUSH Q6H PRN PRN Reason: seizures Methylprednisolone Sodium Succinate (Solu-Medrol -) 40 mg IVPUSH DAILY [facility] Last Admin: 07/27/18 09:53 Dose: 40 mg Mupirocin (Bactroban Ointment (For Decolonization) -) 1 applic NS BID [facility] Stop: 07/28/18 21:59 Last Admin: 07/27/18 09:52 Dose: 1 applic Pantoprazole Sodium (Protonix Iv) 40 mg IVPUSH DAILY [facility] Last Admin: 07/27/18 09:53 Dose: 40 mg Simethicone (Mylicon Liquid -) 40 mg GT BID [facility] Last Admin: 07/27/18 09:52 Dose: 40 mg Topiramate (Topamax -) 100 mg GT BID [facility] Last Admin: 07/27/18 09:53 Dose: 100 mg Constitutional: Yes: NAD, non-verbal at baseline Eyes: Yes: Conjunctiva Clear Cardiovascular: Yes: Bradycardia, S1, S2 Respiratory: Yes: Bilateral scattered Rhonchi Gastrointestinal: Yes: Normal Bowel Sounds, Soft, Other (surgical scar, PEG tube ) Extremities: Yes: Other (contracted LE) Edema: No Neurological: Yes: Poorly responsive Labs: Laboratory Results - last 24 hr 07/27/18 07/27/18 05:15 05:15 WBC 11.6 H RBC 3.28 L Hgb 10.8 L Hct 35.0 L MCV 106.6 H MCH 33.0 MCHC 31.0 L RDW 16.0 H Plt Count 360 MPV 8.1 Absolute Neuts (auto) 7.5 Neutrophils % 64.5 Lymphocytes % 25.7 D Monocytes % 6.3 Eosinophils % 3.3 D Basophils % 0.2 Nucleated RBC % 0 Sodium 152 H Potassium 4.4 Chloride 119 H Carbon Dioxide 28 Anion Gap 5 L BUN 24 H Creatinine 1.3 Creat Clearance w eGFR > 60 Random Glucose 78 Calcium 8.7 Magnesium 2.3 Total Bilirubin 0.2 AST 30 ALT 38 Alkaline Phosphatase 209 H Total Protein 6.9 Albumin 2.7 L Assessment/Plan Suspected Sepsis Severe MR Seizure D/O Wheelchair bound Chronic aspirations with suspected new episode of aspiration pneumonitis versus HCAP Breakthrough Seizures Hypothermia ABX per ID AEDs as ordered / Neuro evaluation O2 to maintain saturation > 95% Aspiration precautions Follow cultures Jesus Alberto serrato Daily Medrol BD [place] PRN Floor Dr Brito
--- NOTE | 2018-07-27 15:26 | PN ---
Progress Note (short form) - Note Progress Note: Patient seen and examined at bedside hypothermic overnight-placed on laron hugger remains hemodynamically stable Vital Signs Temperature 98.3 F 07/27/18 12:00 Pulse Rate 97 H 07/27/18 14:00 Respiratory Rate 07/27/18 14:00 Blood Pressure 90/56 L 07/27/18 14:00 O2 Sat by Pulse Oximetry (%) 98 07/27/18 08:27 PE: NAD lying in bed non verbal RRR S1 S2 poor respiratory effort, diminished breath sounds abdomen is soft non tender non distended PEG site is C/D/I no lower extremity edema 07/27/18 07/27/18 05:15 05:15 WBC 11.6 H RBC 3.28 L Hgb 10.8 L Hct 35.0 L MCV 106.6 H MCHC 31.0 L RDW 16.0 H Plt Count 360 Neutrophils % 64.5 Lymphocytes % 25.7 D Monocytes % 6.3 Eosinophils % 3.3 D Basophils % 0.2 Sodium 152 H Potassium 4.4 Chloride 119 H Carbon Dioxide 28 Anion Gap 5 L BUN 24 H Creatinine 1.3 07/24/18 17:10 Gram Stain - Final Sputum - Expectorated Sputum Culture - Final NORMAL RESPIRATORY KRISTIAN 07/23/18 17:10 Blood Culture - Preliminary Blood - Peripheral Venous NO GROWTH OBTAINED AFTER 72 HOURS, INCUBATION TO CONTINUE FOR 2 DAYS. 07/23/18 17:10 Blood Culture - Preliminary Blood - Peripheral Venous NO GROWTH OBTAINED AFTER 72 HOURS, INCUBATION TO CONTINUE FOR 2 DAYS. 07/25/18 13:36 Respiratory Virus (PCR) - Preliminary Nasopharyngeal Swab 07/23/18 17:51 Urine Culture - Final Urine - Urine - Catheterized Morganella Morganii Escherichia Coli 07/24/18 09:49 Legionella Antigen - Preliminary Urine - Urine Bates Streptococcus pneumoniae Antigen (M - Final 28 y/o M w/ PMHx severe MR, microcephaly, congenital malformations, Sz disorder , chronic aspiration, multiple aspiration PNAs, presented from [facility] w/ witness tonic-clonic seizure, hypothermia, and aspiration pneumonia on CXR. neuro continue clobazam lorazepam and topiramate neurology consult appreciated pulmonary aspiration PNA O2 PRN solumedrol 40 daily-taper Albuterol nebulizer PRN CXR in AM continue zosyn ID Aspiration pneumonia ID consult appreciated continue Zosyn restart Doxycycline 100mg po BID for GI continue tube feeds FEN Hypernatremia-will increase free water flushed thru NG tube to 30ml/hr and recheck sodium in AM PPx HSQ PPI Transfer to Med/Surg Isolation bed
[2018-07-27] MEDS: DOXYCYCLINE MONOHYDRATE 25 MG/5 ML SUSPENSION GT SCH (21:03)
[2018-07-27] MEDS: HEPARIN NA (PORCINE) 5,000 UNITS/ML 1ML VIAL SQ SCH (21:04)
[2018-07-28] MEDS ORDERED: LORazepam 2 MG/ML SDV VIAL IVPUSH PRN (00:12)
[2018-07-28] MEDS ORDERED: ALBUTEROL SO4 0.083% IH SOL 2.5 MG/3 ML VIAL.NEB. NEB PRN (00:12)
[2018-07-28] MEDS ORDERED: PIPERACILLIN/TAZOBACTAM 3.375 GM VIAL IVPB ONE ×3 (02:36→17:13)
[2018-07-28] MEDS ORDERED: DEXTROSE 5%-WATER - 50 ML IVPB ONE ×3 (02:37→17:13)
[2018-07-28] MEDS: PIPERACILLIN/TAZOB 3.375 GM 3.375 GM in DEXTROSE 5%-WATER - 50 ML IVPB SCH ×3 (03:00→17:23)
[2018-07-28] MEDS: HEPARIN NA (PORCINE) 5,000 UNITS/ML 1ML VIAL SQ SCH ×3 (06:31→22:21)
[2018-07-28] MEDS: ALBUTEROL SO4 2.5/IPRATROPIUM 0.5 INH SOL 3 ML VIAL.NEB. NEB SCH ×4 (07:25→21:22)
[2018-07-28 07:56] LABS: BASO % 0.2 % (0-2.0); EOS % 4.9 % (0-4.5); HEMATOCRIT 34.5 % (35.4-49); HEMOGLOBIN 11.4 GM/dL (11.7-16.9); LYMPH % 29.1 % (8-40); MCH 34.9 pg (25.7-33.7); MCHC 33.1 g/dl (32.0-35.9); MEAN CELL VOLUME 105.3 fl (80-96); MEAN PLT VOLUME 8.4 fl (7.5-11.1); MONO % 7.6 % (3.8-10.2); NEUT % 58.2 % (42.8-82.8); PLATELET COUNT 379 K/MM3 (134-434); RBC 3.27 M/mm3 (4.00-5.60); RDW 15.5 % (11.9-15.9)
[2018-07-28 08:37] LABS: ALBUMIN 2.8 g/dl (3.4-5.0); ALK PHOS 214 U/L (45-117); ANION GAP 7 MMOL/L (8-16); BILIRUBIN,TOTAL 0.4 mg/dL (0.2-1); BLOOD UREA NITROGEN 29 mg/dL (7-18); CALCIUM 8.6 mg/dL (8.5-10.1); CHLORIDE 118 mmol/L (98-107); CO2 26 mmol/L (21-32); CREATININE 1.3 mg/dL (0.55-1.3); GLUCOSE,RANDOM 62 mg/dL (74-106); MAGNESIUM 2.3 mg/dL (1.8-2.4); POTASSIUM 4.7 mmol/L (3.5-5.1); SGOT/AST 40 U/L (15-37); SGPT/ALT 51 U/L (13-61); SODIUM 151 mmol/L (136-145); TOT PROT 7.2 g/dl (6.4-8.2)
[2018-07-28] MEDS: PANTOPRAZOLE SODIUM 40 MG VIAL IVPUSH SCH (09:18)
[2018-07-28] MEDS: SIMETHICONE 40 MG/0.6 ML BOTTLE GT SCH ×2 (09:19→22:21)
[2018-07-28] MEDS: LACTULOSE 20 GM/30 ML UDC (FOR ORAL USE ONLY) GT SCH ×2 (09:19→22:21)
[2018-07-28] MEDS: DOXYCYCLINE MONOHYDRATE 25 MG/5 ML SUSPENSION GT SCH ×2 (09:19→22:22)
[2018-07-28] MEDS: diazePAM 5 MG TABLET GT SCH (09:20)
[2018-07-28] MEDS: cloBAZam 10 MG TABLET GT SCH ×2 (09:21→22:22)
--- NOTE | 2018-07-28 09:24 | PN ---
Progress Note (short form) - Note Progress Note: Neurology Chief Complaint: Hypothermia History of Present Illness: This is a 28 y/o young man from the [facility] with a PMHx of: Seizure Disorder, Microcephaly, Profound MR, Paraplegia, Scoliosis who presented to the ED for hypothermia and lethargy. Patient's hydraulic billet maker was at bedside reported that the patient was sent back from program because he looked ill appearing on day of admission. She reported that he felt cold and his temperature was in the low 90's on day of admission. On arrival to the ED patient was found to have a rectal temp of 90.1, P 48, R 20 BP 104/59 Jesus Alberto Hugger was placed core temp improved to 93.4. Chest Xray image- R-sided infiltrate. Started on Vancomycin and Zosyn for Aspiration Pneumonia. Bolus NS given in ER. Patient admitted to ICU for Septic Shock likely secondary to Aspiration Pneumonia. Rapid Flu Swab - negative for A+B Influenza. Cultures sent off. No recent seizure events and no abnormal movements noted. On Onfi, valium, and topamax. No subsequent seizure events, downgraded to floor from ICU. Patient appears stable and comfortable at this time. Active Medications Albuterol Sulfate (Ventolin 0.083% Nebulizer Soln -) 1 amp NEB Q4H PRN PRN Reason: SHORT OF BREATH/WHEEZING Albuterol/Ipratropium (Duoneb -) 1 amp NEB RQID [facility] Clobazam (Onfi -) 15 mg GT BID [facility] Diazepam (Valium -) 5 mg GT DAILY [facility] Doxycycline Monohydrate (Vibramycin Oral Suspension -) 100 mg GT BID [facility] Last Admin: 07/27/18 21:03 Dose: 100 mg Heparin Sodium (Porcine) (Heparin -) 5,000 unit SQ TID [facility] Last Admin: 07/28/18 06:31 Dose: 5,000 unit Piperacillin Sod/Tazobactam (Sod 3.375 gm/ Dextrose) 50 mls @ 100 mls/hr IVPB Q8H-IV [facility]; Protocol Last Admin: 07/28/18 03:00 Dose: 100 mls/hr Lactulose (Cephulac (Oral Use)) 20 gm GT BID [facility] Lorazepam (Ativan Injection -) 1 mg IVPUSH Q6H PRN PRN Reason: seizures Methylprednisolone Sodium Succinate (Solu-Medrol -) 40 mg IVPUSH DAILY [facility] Pantoprazole Sodium (Protonix Iv) 40 mg IVPUSH DAILY [facility] Simethicone (Mylicon Liquid -) 40 mg GT BID [facility] Topiramate (Topamax -) 100 mg GT BID [facility] Physical Examination Vital Signs Period Temp Pulse Resp BP Sys/Saha Pulse Ox Last 24 Hr 97.5 F-98.3 F 76-100 14-22 90-136/55-74 96 Constitutional: Yes: No Distress, Calm, Other (Unresponsive) Eyes: Yes: Conjunctiva Clear, PERRL HENT: Yes: Other (Microcephaly) Neck: Yes: WNL, Supple, Trachea Midline Cardiovascular: Yes: Regular Rate and Rhythm, S1, S2 Respiratory: Yes: Rhonchi (Coarse, throughout), Wheezes, Other (on NRB) Gastrointestinal: Yes: Soft, Distention, Hypoactive Bowel Sounds, Other (PEG- intact) Renal/: Yes: Incontinence Breast(s): Yes: WNL Edema: No Peripheral Pulses WNL: Yes Integumentary: Yes: Erythema (groin), Pressure Ulcer (Stage I Coccyx), Rash ( groin) Neurological: Yes: Pre-Existing Deficit, Unresponsive Labs: CBCD WBC 9.0 K/mm3 (4.0-10.0) 07/28/18 06:00 RBC 3.27 M/mm3 (4.00-5.60) L 07/28/18 06:00 Hgb 11.4 GM/dL (11.7-16.9) L 07/28/18 06:00 Hct 34.5 % (35.4-49) L 07/28/18 06:00 MCV 105.3 fl (80-96) H 07/28/18 06:00 MCHC 33.1 g/dl (32.0-35.9) 07/28/18 06:00 RDW 15.5 % (11.9-15.9) 07/28/18 06:00 Plt Count 379 K/MM3 (134-434) 07/28/18 06:00 MPV 8.4 fl (7.5-11.1) 07/28/18 06:00 CMP Sodium 151 mmol/L (136-145) H 07/28/18 06:00 Potassium 4.7 mmol/L (3.5-5.1) 07/28/18 06:00 Chloride 118 mmol/L (98-107) H 07/28/18 06:00 Carbon Dioxide 26 mmol/L (21-32) 07/28/18 06:00 Anion Gap 7 MMOL/L (8-16) L 07/28/18 06:00 BUN 29 mg/dL (7-18) H 07/28/18 06:00 Creatinine 1.3 mg/dL (0.55-1.3) 07/28/18 06:00 Creat Clearance w eGFR > 60 (>60) 07/28/18 06:00 Random Glucose 62 mg/dL (74-106) L 07/28/18 06:00 Calcium 8.6 mg/dL (8.5-10.1) 07/28/18 06:00 Total Bilirubin 0.4 mg/dL (0.2-1) 07/28/18 06:00 AST 40 U/L (15-37) H 07/28/18 06:00 ALT 51 U/L (13-61) 07/28/18 06:00 Alkaline Phosphatase 214 U/L (45-117) H 07/28/18 06:00 Total Protein 7.2 g/dl (6.4-8.2) 07/28/18 06:00 Albumin 2.8 g/dl (3.4-5.0) L 07/28/18 06:00 CARDIAC ENZYMES Troponin I < 0.02 ng/ml (0.00-0.05) 07/23/18 17:10 Diagnostic CXRAY - completed Plan: This is a 28 y/o young man from the [facility] with a PMHx of: Seizure Disorder, Microcephaly, Profound MR, Paraplegia, Scoliosis who presented to the ED for hypothermia and lethargy. Patient's hydraulic billet maker was at bedside reported that the patient was sent back from program because he looked ill appearing on day of admission. She reported that he felt cold and his temperature was in the low 90's on day of admission. On arrival to the ED patient was found to have a rectal temp of 90.1, P 48, R 20 BP 104/59 Jesus Alberto Hugger was placed core temp improved to 93.4 in ER. Chest Xray image- R-sided infiltrate. Started on Vancomycin and Zosyn for Aspiration Pneumonia. Bolus NS given in ER. Patient admitted to ICU for Septic Shock likely secondary to Aspiration Pneumonia. Rapid Flu Swab - negative for A+B Influenza. Cultures sent off. No recent seizure events and no abnormal movements noted. On Onfi, valium, and topamax. No new or further abnormal movements. Has been seizure free, confirmed with nurse. Continue infectious mgmt, follow up ID rec'd. Seizures thus far stable and remain on current regiment. Previously in ICU, currently downgraded to floor and stable appearing. Continue monitoring for abnormal movements. Neurologically remains stable.
[2018-07-28] MEDS ORDERED: methylPREDNISolone NA SUCC 40 MG/1 ML VIAL IVPUSH SCH (10:00)
[2018-07-28] MEDS ORDERED: MUPIROCIN 2% TOPICAL OINTMENT FOR DECOLONIZATION NS SCH (10:00)
[2018-07-28] MEDS ORDERED: DEXTROSE 5%-WATER - 1,000 ML IV SCH (10:15)
[2018-07-28] MEDS: TOPIRAMATE 100 MG TABLET GT SCH ×2 (10:28→22:22)
[2018-07-28 11:15] LABS: ANISOCYTOSIS 1+; MACROCYTOSIS 1+; PLATELET ESTIMATE NORMAL
--- NOTE | 2018-07-28 12:19 | PN ---
Progress Note (short form) - Note Progress Note: PULMONARY Pt nonverbal, no fevers recorded. Vital Signs Period Temp Pulse Resp BP Sys/Saha Pulse Ox Last 24 Hr 97.5 F-98 F 72-99 14-20 90-136/55-74 93-96 Gen: breathing nonlabored Heart: RRR Lung: scattered rhonchi Abd: soft, nontender Ext: no edema CBC, BMP 07/28/18 06:00 07/28/18 06:00 Active Medications Albuterol Sulfate (Ventolin 0.083% Nebulizer Soln -) 1 amp NEB Q4H PRN PRN Reason: SHORT OF BREATH/WHEEZING Albuterol/Ipratropium (Duoneb -) 1 amp NEB RQID [facility] Clobazam (Onfi -) 15 mg GT BID [facility] Last Admin: 07/28/18 09:21 Dose: 15 mg Diazepam (Valium -) 5 mg GT DAILY [facility] Last Admin: 07/28/18 09:20 Dose: 5 mg Doxycycline Monohydrate (Vibramycin Oral Suspension -) 100 mg GT BID [facility] Last Admin: 07/28/18 09:19 Dose: 100 mg Heparin Sodium (Porcine) (Heparin -) 5,000 unit SQ TID [facility] Last Admin: 07/28/18 06:31 Dose: 5,000 unit Piperacillin Sod/Tazobactam (Sod 3.375 gm/ Dextrose) 50 mls @ 100 mls/hr IVPB Q8H-IV [facility]; Protocol Last Admin: 07/28/18 09:18 Dose: 100 mls/hr Dextrose (D5w -) 1,000 mls @ 42 mls/hr IV .[id number] [facility] Last Admin: 07/28/18 10:27 Dose: 42 mls/hr Lactulose (Cephulac (Oral Use)) 20 gm GT BID [facility] Last Admin: 07/28/18 09:19 Dose: 20 gm Lorazepam (Ativan Injection -) 1 mg IVPUSH Q6H PRN PRN Reason: seizures Methylprednisolone Sodium Succinate (Solu-Medrol -) 40 mg IVPUSH DAILY [facility] Last Admin: 07/28/18 09:20 Dose: 40 mg Pantoprazole Sodium (Protonix Iv) 40 mg IVPUSH DAILY [facility] Last Admin: 07/28/18 09:18 Dose: 40 mg Simethicone (Mylicon Liquid -) 40 mg GT BID [facility] Last Admin: 07/28/18 09:19 Dose: 40 mg Topiramate (Topamax -) 100 mg GT BID [facility] Last Admin: 07/28/18 10:28 Dose: 100 mg A/P Pneumonia likely Aspiration Sepsis Mental Retardation Seizure Disorder - continue antibiotics - aspiration precautions - antiepileptics - inhaled bronchodilators - can d/c empiric medrol - O2 to keep SpO2 >90% - DVT prophylaxis
--- NOTE | 2018-07-28 20:10 | PN ---
Progress Note, Physician Chief Complaint: RSV PNA History of Present Illness: 24 HR events -pt transferred out ICU. -pt hypernatremic - Current Medication List Current Medications: Active Medications Albuterol Sulfate (Ventolin 0.083% Nebulizer Soln -) 1 amp NEB Q4H PRN PRN Reason: SHORT OF BREATH/WHEEZING Albuterol/Ipratropium (Duoneb -) 1 amp NEB RQID [facility] Last Admin: 07/28/18 17:37 Dose: 1 amp Clobazam (Onfi -) 15 mg GT BID [facility] Last Admin: 07/28/18 09:21 Dose: 15 mg Diazepam (Valium -) 5 mg GT DAILY [facility] Last Admin: 07/28/18 09:20 Dose: 5 mg Doxycycline Monohydrate (Vibramycin Oral Suspension -) 100 mg GT BID [facility] Last Admin: 07/28/18 09:19 Dose: 100 mg Heparin Sodium (Porcine) (Heparin -) 5,000 unit SQ TID [facility] Last Admin: 07/28/18 14:19 Dose: 5,000 unit Piperacillin Sod/Tazobactam (Sod 3.375 gm/ Dextrose) 50 mls @ 100 mls/hr IVPB Q8H-IV [facility]; Protocol Last Admin: 07/28/18 17:23 Dose: 100 mls/hr Dextrose (D5w -) 1,000 mls @ 42 mls/hr IV .[id number] [facility] Last Admin: 07/28/18 10:27 Dose: 42 mls/hr Lactulose (Cephulac (Oral Use)) 20 gm GT BID [facility] Last Admin: 07/28/18 09:19 Dose: 20 gm Lorazepam (Ativan Injection -) 1 mg IVPUSH Q6H PRN PRN Reason: seizures Pantoprazole Sodium (Protonix Iv) 40 mg IVPUSH DAILY [facility] Last Admin: 07/28/18 09:18 Dose: 40 mg Simethicone (Mylicon Liquid -) 40 mg GT BID [facility] Last Admin: 07/28/18 09:19 Dose: 40 mg Topiramate (Topamax -) 100 mg GT BID [facility] Last Admin: 07/28/18 10:28 Dose: 100 mg - Objective Vital Signs: Vital Signs Temperature 97.5 F L 07/28/18 05:56 Pulse Rate 72 07/28/18 09:00 Respiratory Rate 20 07/28/18 09:00 Blood Pressure 122/68 07/28/18 09:00 O2 Sat by Pulse Oximetry (%) 93 L 07/28/18 09:00 Constitutional: Yes: No Distress, Calm Eyes: Yes: PERRL HENT: Yes: Atraumatic Neck: Yes: Supple Respiratory: Yes: Regular, Diminished Gastrointestinal: Yes: Normal Bowel Sounds, Soft, Other (PEG in situ) ...Rectal Exam: Yes: Deferred Musculoskeletal: Yes: Joint Stiffness, Muscle Weakness Extremities: Yes: Deformity (contractures) Edema: No Peripheral Pulses WNL: Yes Peripheral Pulses: Left Radial: 2+, Right Radial: 2+ Neurological: Yes: Pre-Existing Deficit Labs: CBC, BMP 07/28/18 06:00 07/28/18 06:00 INR, PTT INR 0.96 (0.83-1.09) 07/23/18 17:10 Problem List - Problems (1) Hypernatremia Assessment/Plan: start free water bolus 250ml q6hrs start D5W @ 42ml/hr Code(s): E87.0 - HYPEROSMOLALITY AND HYPERNATREMIA (2) UTI (urinary tract infection) Assessment/Plan: doxycycline 100mg BID trend fever curve and WBC Code(s): N39.0 - URINARY TRACT INFECTION, SITE NOT SPECIFIED Qualifiers: Urinary tract infection type: site unspecified Hematuria presence: without hematuria Qualified Code(s): N39.0 - Urinary tract infection, site not specified (3) Asthma Assessment/Plan: albuterol QID Pulm following. frequent suctioning. Code(s): J45.909 - UNSPECIFIED ASTHMA, UNCOMPLICATED (4) Seizure disorder Assessment/Plan: Seizure disorder precautions maintained no seizures overnight c/w topamax, onfi, valium c/w ativan 1mg prn for breakthrough seizures Code(s): G40.909 - EPILEPSY, UNSP, NOT INTRACTABLE, WITHOUT STATUS EPILEPTICUS Impression/Plan Impression/Plan: DVT ppx: SCDs Heparin SQ FEN Replete lytes prn on jevity feeds Visit type - Emergency Visit Emergency Visit: Yes ED Registration Date: 07/23/18 Care time: The patient presented to the Emergency Department on the above date and was hospitalized for further evaluation of their emergent condition. - New Patient This patient is new to me today: Yes Date on this admission: 07/28/18 - Critical Care Critical Care patient: No - Discharge Referral Referred to [facility] No
[2018-07-28] MEDS ORDERED: PT OWN MED DRAWER 7, Y5N ONE (21:58)
[2018-07-28] MEDS ORDERED: CHLORHEXIDINE GLUCONATE 4% CLEANSER FOR DECOLONIZATION TP SCH (22:00)
[2018-07-29] MEDS ORDERED: PIPERACILLIN/TAZOBACTAM 3.375 GM VIAL IVPB ONE ×3 (02:44→18:35)
[2018-07-29] MEDS: PIPERACILLIN/TAZOB 3.375 GM 3.375 GM in DEXTROSE 5%-WATER - 50 ML IVPB SCH ×3 (02:52→18:38)
[2018-07-29] MEDS: HEPARIN NA (PORCINE) 5,000 UNITS/ML 1ML VIAL SQ SCH ×3 (06:16→21:19)
[2018-07-29] MEDS: ALBUTEROL SO4 2.5/IPRATROPIUM 0.5 INH SOL 3 ML VIAL.NEB. NEB SCH ×2 (08:12→12:39)
[2018-07-29 08:53] LABS: ALLENS TEST POSITIVE; ARTERIAL BLD GAS O2 SATURATION 97.7 % (90-98.9); ARTERIAL BLOOD GAS PCO2 41.9 mmHg (35-45); ARTERIAL BLOOD GAS pH 7.38 (7.35-7.45)
[2018-07-29] MEDS ORDERED: FUROSEMIDE 40 MG/4 ML INJECTABLE VIAL IVPUSH ONE (09:00)
[2018-07-29] MEDS: cloBAZam 10 MG TABLET GT SCH ×2 (09:06→21:21)
[2018-07-29] MEDS: diazePAM 5 MG TABLET GT SCH (09:06)
[2018-07-29] MEDS: PANTOPRAZOLE SODIUM 40 MG VIAL IVPUSH SCH (09:06)
[2018-07-29 09:12] LABS: BASO % 0.2 % (0-2.0); EOS % 3.2 % (0-4.5); HEMATOCRIT 37.8 % (35.4-49); HEMOGLOBIN 12.4 GM/dL (11.7-16.9); LYMPH % 24.6 % (8-40); MCH 34.4 pg (25.7-33.7); MCHC 32.8 g/dl (32.0-35.9); MEAN PLT VOLUME 7.8 fl (7.5-11.1); PLATELET COUNT 410 K/MM3 (134-434); RDW 14.7 % (11.9-15.9); WHITE BLOOD COUNT 15.1 K/mm3 (4.0-10.0)
--- NOTE | 2018-07-29 09:20 | PN ---
Progress Note (short form) - Note Progress Note: Neurology Chief Complaint: Hypothermia History of Present Illness: This is a 28 y/o young man from the [facility] with a PMHx of: Seizure Disorder, Microcephaly, Profound MR, Paraplegia, Scoliosis who presented to the ED for hypothermia and lethargy. Patient's optical element coater was at bedside reported that the patient was sent back from program because he looked ill appearing on day of admission. She reported that he felt cold and his temperature was in the low 90's on day of admission. On arrival to the ED patient was found to have a rectal temp of 90.1, P 48, R 20 BP 104/59 Jesus Alberto Hugger was placed core temp improved to 93.4. Chest Xray image- R-sided infiltrate. Started on Vancomycin and Zosyn for Aspiration Pneumonia. Bolus NS given in ER. Patient admitted to ICU for Septic Shock likely secondary to Aspiration Pneumonia. Rapid Flu Swab - negative for A+B Influenza. Cultures sent off. No recent seizure events and no abnormal movements noted. On Onfi, valium, and topamax. No subsequent seizure events, downgraded to floor from ICU. Patient appears stable and comfortable at this time. Remains on Zosyn. Active Medications Albuterol Sulfate (Ventolin 0.083% Nebulizer Soln -) 1 amp NEB Q4H PRN PRN Reason: SHORT OF BREATH/WHEEZING Albuterol/Ipratropium (Duoneb -) 1 amp NEB RQID [facility] Last Admin: 07/29/18 08:12 Dose: 1 amp Clobazam (Onfi -) 15 mg GT BID [facility] Last Admin: 07/29/18 09:06 Dose: 15 mg Diazepam (Valium -) 5 mg GT DAILY [facility] Last Admin: 07/29/18 09:06 Dose: 5 mg Doxycycline Monohydrate (Vibramycin Oral Suspension -) 100 mg GT BID [facility] Last Admin: 07/28/18 22:22 Dose: 100 mg Heparin Sodium (Porcine) (Heparin -) 5,000 unit SQ TID [facility] Last Admin: 07/29/18 06:16 Dose: 5,000 unit Piperacillin Sod/Tazobactam (Sod 3.375 gm/ Dextrose) 50 mls @ 100 mls/hr IVPB Q8H-IV [facility]; Protocol Last Admin: 07/29/18 09:05 Dose: 100 mls/hr Lactulose (Cephulac (Oral Use)) 20 gm GT BID [facility] Last Admin: 07/28/18 22:21 Dose: 20 gm Lorazepam (Ativan Injection -) 1 mg IVPUSH Q6H PRN PRN Reason: seizures Pantoprazole Sodium (Protonix Iv) 40 mg IVPUSH DAILY [facility] Last Admin: 07/29/18 09:06 Dose: 40 mg Simethicone (Mylicon Liquid -) 40 mg GT BID [facility] Last Admin: 07/28/18 22:21 Dose: 40 mg Topiramate (Topamax -) 100 mg GT BID [facility] Last Admin: 07/28/18 22:22 Dose: 100 mg Physical Examination Vital Signs Period Temp Pulse Resp BP Sys/Saha Pulse Ox Last 24 Hr 98.2 F-99.0 F 66-96 20-26 115-128/56-79 Constitutional: Yes: No Distress, Calm, Other (Unresponsive) Eyes: Yes: Conjunctiva Clear, PERRL HENT: Yes: Other (Microcephaly) Neck: Yes: WNL, Supple, Trachea Midline Cardiovascular: Yes: Regular Rate and Rhythm, S1, S2 Respiratory: Yes: Rhonchi (Coarse, throughout), Wheezes, Other (on NRB) Gastrointestinal: Yes: Soft, Distention, Hypoactive Bowel Sounds, Other (PEG- intact) Renal/: Yes: Incontinence Breast(s): Yes: WNL Edema: No Peripheral Pulses WNL: Yes Integumentary: Yes: Erythema (groin), Pressure Ulcer (Stage I Coccyx), Rash ( groin) Neurological: Yes: Pre-Existing Deficit, Unresponsive Labs: CBCD WBC 15.1 K/mm3 (4.0-10.0) H 07/29/18 09:00 RBC 3.60 M/mm3 (4.00-5.60) L 07/29/18 09:00 Hgb 12.4 GM/dL (11.7-16.9) 07/29/18 09:00 Hct 37.8 % (35.4-49) 07/29/18 09:00 MCV 105.0 fl (80-96) H 07/29/18 09:00 MCHC 32.8 g/dl (32.0-35.9) 07/29/18 09:00 RDW 14.7 % (11.9-15.9) 07/29/18 09:00 Plt Count 410 K/MM3 (134-434) 07/29/18 09:00 MPV 7.8 fl (7.5-11.1) 07/29/18 09:00 CMP Sodium 151 mmol/L (136-145) H 07/28/18 06:00 Potassium 4.7 mmol/L (3.5-5.1) 07/28/18 06:00 Chloride 118 mmol/L (98-107) H 07/28/18 06:00 Carbon Dioxide 26 mmol/L (21-32) 07/28/18 06:00 Anion Gap 7 MMOL/L (8-16) L 07/28/18 06:00 BUN 29 mg/dL (7-18) H 07/28/18 06:00 Creatinine 1.3 mg/dL (0.55-1.3) 07/28/18 06:00 Creat Clearance w eGFR > 60 (>60) 07/28/18 06:00 Random Glucose 62 mg/dL (74-106) L 07/28/18 06:00 Calcium 8.6 mg/dL (8.5-10.1) 07/28/18 06:00 Total Bilirubin 0.4 mg/dL (0.2-1) 07/28/18 06:00 AST 40 U/L (15-37) H 07/28/18 06:00 ALT 51 U/L (13-61) 07/28/18 06:00 Alkaline Phosphatase 214 U/L (45-117) H 07/28/18 06:00 Total Protein 7.2 g/dl (6.4-8.2) 07/28/18 06:00 Albumin 2.8 g/dl (3.4-5.0) L 07/28/18 06:00 CARDIAC ENZYMES Troponin I < 0.02 ng/ml (0.00-0.05) 07/23/18 17:10 Diagnostic CXRAY - completed Plan: This is a 28 y/o young man from the [facility] with a PMHx of: Seizure Disorder, Microcephaly, Profound MR, Paraplegia, Scoliosis who presented to the ED for hypothermia and lethargy. Patient's optical element coater was at bedside reported that the patient was sent back from program because he looked ill appearing on day of admission. She reported that he felt cold and his temperature was in the low 90's on day of admission. On arrival to the ED patient was found to have a rectal temp of 90.1, P 48, R 20 BP 104/59 Jesus Alberto Hugger was placed core temp improved to 93.4 in ER. Chest Xray image- R-sided infiltrate. Started on Vancomycin and Zosyn for Aspiration Pneumonia. Bolus NS given in ER. Patient admitted to ICU for Septic Shock likely secondary to Aspiration Pneumonia. Rapid Flu Swab - negative for A+B Influenza. Cultures sent off. No recent seizure events and no abnormal movements noted. On Onfi, valium, and topamax. No new or further abnormal movements. Has been seizure free. Continue infectious mgmt, follow up ID rec'd. Seizures thus far stable and remain on current regiment. Previously in ICU, currently downgraded to floor and stable appearing. Remains on Zosyn. Continue monitoring for abnormal movements. Neurologically remains stable.
--- NOTE | 2018-07-29 09:37 | PN ---
Progress Note (short form) - Note Progress Note: back on NRB noted to have increased secretions requiring suctioning this am Vital Signs Period Temp Pulse Resp BP Sys/Saha Pulse Ox Last 24 Hr 98.2 F-99.0 F 66-96 20-26 115-128/56-79 cor-rrr lungs bilateral rhonchi abd soft,nt ext no edema CBC, BMP 07/29/18 09:00 a/p profound developmental disabilities pneumonia urinary retention- recurrent seizures (known seizure disorder) history of kleb ESBL uti in January 2018 continue zosyn, possible re-aspiration on doxycycline for MRSA suppressive treatment- chronic hardware infection d/w hospitalist Problem List - Problems (1) Seizure Code(s): R56.9 - UNSPECIFIED CONVULSIONS (2) Hypothermia Code(s): T68.XXXA - HYPOTHERMIA, INITIAL ENCOUNTER Qualifiers: Encounter type: initial encounter Qualified Code(s): T68.XXXA - Hypothermia , initial encounter (3) Sepsis Code(s): A41.9 - SEPSIS, UNSPECIFIED ORGANISM Qualifiers: Sepsis type: sepsis due to unspecified organism Qualified Code(s): A41.9 - Sepsis, unspecified organism (4) PNA (pneumonia) Code(s): J18.9 - PNEUMONIA, UNSPECIFIED ORGANISM Qualifiers: Pneumonia type: aspiration pneumonia Aspiration pneumonia type: unspecified Laterality: unspecified laterality Lung location: unspecified part of lung Qualified Code(s): J69.0 - Pneumonitis due to inhalation of food and vomit (5) UTI (urinary tract infection) Code(s): N39.0 - URINARY TRACT INFECTION, SITE NOT SPECIFIED Qualifiers: Urinary tract infection type: site unspecified Hematuria presence: without hematuria Qualified Code(s): N39.0 - Urinary tract infection, site not specified
[2018-07-29 09:56] LABS: ALBUMIN 3.2 g/dl (3.4-5.0); ALK PHOS 226 U/L (45-117); ANION GAP 10 MMOL/L (8-16); BILIRUBIN,TOTAL 0.5 mg/dL (0.2-1); BLOOD UREA NITROGEN 31 mg/dL (7-18); CALCIUM 9.3 mg/dL (8.5-10.1); CHLORIDE 112 mmol/L (98-107); CO2 24 mmol/L (21-32); CREATININE 1.3 mg/dL (0.55-1.3); GLUCOSE,RANDOM 88 mg/dL (74-106); MAGNESIUM 2.3 mg/dL (1.8-2.4); SGOT/AST 27 U/L (15-37); SGPT/ALT 50 U/L (13-61); SODIUM 146 mmol/L (136-145); TOT PROT 7.8 g/dl (6.4-8.2)
[2018-07-29] MEDS ORDERED: PT OWN MED DRAWER 7, Y5N ONE ×2 (10:49→15:26)
[2018-07-29] MEDS: LACTULOSE 20 GM/30 ML UDC (FOR ORAL USE ONLY) GT SCH ×2 (11:01→21:32)
[2018-07-29] MEDS: SIMETHICONE 40 MG/0.6 ML BOTTLE GT SCH (11:01)
[2018-07-29] MEDS: TOPIRAMATE 100 MG TABLET GT SCH ×2 (11:01→21:20)
[2018-07-29] MEDS: DOXYCYCLINE MONOHYDRATE 25 MG/5 ML SUSPENSION GT SCH (11:02)
--- NOTE | 2018-07-29 16:32 | PN ---
Progress Note (short form) - Note Progress Note: Responded immediatly to code 99.Did DL with MAC4 VCV ETT & cuff up.Posative Etco2.BS R#L.Patient continued to be coded.
--- NOTE | 2018-07-29 16:40 | RAPID ---
Physical Examination Vital Signs: Vital Signs Temperature 98.2 F 07/29/18 08:00 Pulse Rate 74 07/29/18 14:00 Respiratory Rate 18 07/29/18 14:00 Blood Pressure 120/70 07/29/18 14:00 O2 Sat by Pulse Oximetry (%) 96 07/29/18 09:00 Findings/Remarks: Code 99 called on floor at bedside. Code initiated upon arrival. Please see code sheet for details. After ROSC: 137/117 HR 105 Repeat: 98/59 HR 102 Labs: CBC, BMP 07/29/18 09:00 07/29/18 09:00
[2018-07-29 16:46] LABS: ARTERIAL BLD GAS O2 SATURATION 88.1 % (90-98.9); ARTERIAL BLOOD GAS BASE EXCESS -12.6 meq/l (-2-2); ARTERIAL BLOOD GAS PO2 77.7 mmHg (80-100)
[2018-07-29] MEDS ORDERED: PHENYLEPHRINE HCL 10 MG/1 ML SINGLE DOSE VIAL ONE (16:49)
[2018-07-29 17:07] LABS: ALLENS TEST POSITIVE
[2018-07-29 17:10] LABS: ARTERIAL BLOOD GAS pH 7.06 (7.35-7.45)
[2018-07-29] MEDS ORDERED: SODIUM CHLORIDE 1,000 ML IV STA (17:35)
[2018-07-29] MEDS ORDERED: VASOPRESSIN 20 UNITS/ML VIAL IV ONE ×2 (17:40→22:16)
[2018-07-29] MEDS ORDERED: PHENYLEPHRINE HCL 20,000 MCG in SODIUM CHLORIDE 248 ML IVPB SCH (17:45)
[2018-07-29] MEDS: VASOPRESSIN 50 UNITS in SODIUM CHLORIDE 97.5 ML IVPB SCH (17:49)
[2018-07-29] MEDS: PHENYLEPHRINE HCL 20,000 MCG in SODIUM CHLORIDE 248 ML IVPB SCH ×2 (17:51→21:18)
--- NOTE | 2018-07-29 17:54 | RAPID ---
Physical Examination Vital Signs: Vital Signs Temperature 98.2 F 07/29/18 08:00 Pulse Rate 74 07/29/18 14:00 Respiratory Rate 18 07/29/18 14:00 Blood Pressure 120/70 07/29/18 14:00 O2 Sat by Pulse Oximetry (%) 96 07/29/18 09:00 Findings/Remarks: CODE 99 CALLED FOR CONOR SIMMS. PLEASE REFER TO CODE SHEET FOR FULL DETAILS. ROSC obtained after 5 mins Labs: CBC, BMP 07/29/18 09:00 07/29/18 09:00
[2018-07-29 18:17] LABS: ARTERIAL BLD GAS O2 SATURATION 97.7 % (90-98.9); ARTERIAL BLOOD GAS BASE EXCESS -12.3 meq/l (-2-2); ARTERIAL BLOOD GAS PCO2 68.7 mmHg (35-45); ARTERIAL BLOOD GAS pH 7.06 (7.35-7.45)
--- NOTE | 2018-07-29 18:17 | CONSULT ---
Consultation: REQUESTING PROVIDER: CONSULT REQUEST: We have been asked to medically evaluate this patient for ICU level care. HISTORY OF PRESENT ILLNESS: This is a 28 y/o young man from the [facility] with a PMHx of: Seizure Disorder, Microcephaly, Profound MR, Paraplegia, Scoliosis who presented to the ED for hypothermia and lethargy. Patient's stoner out was at bedside reported that the patient was sent back from program because he looked ill appearing on day of admission. She reported that he felt cold and his temperature was in the low 90's on day of admission. On arrival to the ED patient was found to have a rectal temp of 90.1, P 48, R 20 BP 104/59 Jesus Alberto Hugger was placed core temp improved to 93.4. Chest Xray image- R-sided infiltrate. Started on Vancomycin and Zosyn for Aspiration Pneumonia. Bolus NS given in ER. Patient admitted to ICU for Septic Shock likely secondary to Aspiration Pneumonia. Rapid Flu Swab - negative for A+B Influenza. Cultures sent off. No recent seizure events and no abnormal movements noted. On Onfi, valium, and topamax. No subsequent seizure events, downgraded to floor from ICU. Remains on Zosyn. Rapid response called today, 07/29/18, for PEA and patient was brought back to the ICU. REVIEW OF SYSTEMS: Unable to obtain. Patient intubated and sedated. PHYSICAL EXAMINATION Vital Signs - 24 hr 07/28/18 07/28/18 07/29/18 21:00 22:10 05:25 Temperature 99.0 F 98.2 F Pulse Rate 66 72 Respiratory 20 22 H 20 Rate Blood Pressure 115/56 L 119/65 O2 Sat by Pulse Oximetry (%) 07/29/18 07/29/18 07/29/18 08:00 09:00 10:00 Temperature 98.2 F Pulse Rate 96 H 78 Respiratory 26 H 20 Rate Blood Pressure 128/79 117/60 O2 Sat by Pulse 96 Oximetry (%) 07/29/18 07/29/18 07/29/18 14:00 17:25 17:49 Temperature Pulse Rate 74 72 Respiratory 18 12 Rate Blood Pressure 120/70 76/43 L O2 Sat by Pulse Oximetry (%) 07/29/18 07/29/18 07/29/18 17:52 18:00 18:14 Temperature 95 F L Pulse Rate 72 72 Respiratory 12 12 Rate Blood Pressure 76/54 L 132/86 110/63 O2 Sat by Pulse Oximetry (%) General: Intubated Head: No signs of trauma Eyes: Pupils equal, round and reactive to light ENT: Moist mucus membranes Neck: Supple without lymphadenopathy Lungs: Bibasilar crackles Cardio: Regular rhythm, S1 and S2 present Abdomen: Soft, distended. PEG tube in place, clean without discharge Extremities: Limbs contracted, +2 Distal pulses present SKIN: Warm, Dry, normal turgor Neurologic: Sedated Laboratory Results - last 24 hr 07/29/18 07/29/18 07/29/18 08:39 09:00 09:00 WBC 15.1 H RBC 3.60 L Hgb 12.4 Hct 37.8 MCV 105.0 H MCH 34.4 H MCHC 32.8 RDW 14.7 Plt Count 410 MPV 7.8 Absolute Neuts (auto) 9.7 H Neutrophils % 64.0 Lymphocytes % 24.6 Monocytes % 8.0 Eosinophils % 3.2 Basophils % 0.2 Nucleated RBC % 0 Anticoagulation Therapy No Result Required. Puncture Site Left radial ABG pH 7.38 ABG pCO2 at Pt Temp 41.9 ABG pO2 at Pt Temp 115.0 H D ABG HCO3 24.2 ABG O2 Sat (Measured) 97.7 ABG O2 Content 17.1 ABG Base Excess No Result Required. Eliezer Test Positive O2 Delivery Device No Result Required. Oxygen Flow Rate No Result Required. Vent Mode No Result Required. Vent Rate No Result Required. Mechanical Rate No Result Required. Pressure Support Vent No Result Required. Sodium 146 H Potassium 4.0 Chloride 112 H Carbon Dioxide 24 Anion Gap 10 BUN 31 H Creatinine 1.3 Creat Clearance w eGFR > 60 Random Glucose 88 Calcium 9.3 Phosphorus 3.0 Magnesium 2.3 Total Bilirubin 0.5 AST 27 ALT 50 Alkaline Phosphatase 226 H Total Protein 7.8 Albumin 3.2 L 07/29/18 07/29/18 16:36 17:25 WBC RBC Hgb Hct MCV MCH MCHC RDW Plt Count MPV Absolute Neuts (auto) Neutrophils % Lymphocytes % Monocytes % Eosinophils % Basophils % Nucleated RBC % Anticoagulation Therapy No Result Required. No Result Required. Puncture Site Md puncture ABG pH 7.06 L* D ABG pCO2 at Pt Temp 70.0 H* D ABG pO2 at Pt Temp 77.7 L D ABG HCO3 18.8 L ABG O2 Sat (Measured) 88.1 L ABG O2 Content 16.0 ABG Base Excess -12.6 L* Eliezer Test Positive O2 Delivery Device Ambu No Result Required. Oxygen Flow Rate 100% No Result Required. Vent Mode No Result Required. No Result Required. Vent Rate No Result Required. No Result Required. Mechanical Rate No Result Required. No Result Required. Pressure Support Vent No Result Required. No Result Required. Sodium Potassium Chloride Carbon Dioxide Anion Gap BUN Creatinine Creat Clearance w eGFR Random Glucose Calcium Phosphorus Magnesium Total Bilirubin AST ALT Alkaline Phosphatase Total Protein Albumin Active Medications Generic Name Dose Route Start Last Admin Trade Name Freq PRN Reason Stop Dose Admin Acetylcysteine 600 mg 07/29/18 20:00 Mucomyst 20 Oral / Inh Use Only* NEB RQID JULIO Albuterol Sulfate 1 amp 07/29/18 20:00 Ventolin 0.083% Nebulizer Soln - NEB RQID JULIO Chlorhexidine Gluconate 1 applic 07/29/18 22:00 Hibiclens For Decolonization - TP HS JULIO Clobazam 15 mg 07/28/18 10:00 07/29/18 09:06 Onfi - GT 15 mg BID JULIO Administration Diazepam 5 mg 07/28/18 10:00 07/29/18 09:06 Valium - GT 5 mg DAILY JULIO Administration Heparin Sodium (Porcine) 5,000 unit 07/27/18 22:00 07/29/18 14:18 Heparin - SQ 5,000 unit TID JULIO Administration Piperacillin Sod/Tazobactam 50 mls @ 100 mls/hr 07/28/18 02:00 07/29/18 09:05 Sod 3.375 gm/ Dextrose IVPB 100 mls/hr Q8H-IV JULIO Administration Protocol Sodium Chloride 1,000 mls @ 1,000 mls/hr 07/29/18 17:35 07/29/18 18:11 Normal Saline - IV 07/29/18 18:34 Not Given ASDIR STA Phenylephrine HCl 20,000 mcg/ 250 mls @ 18.75 mls/hr 07/29/18 17:30 07/29/18 17:51 Sodium Chloride IVPB 60 mcg/min ASDIR JULIO 45 mls/hr Administration Protocol 25 MCG/MIN Vasopressin 50 units/ Sodium 100 mls @ 4 mls/hr 07/29/18 17:45 07/29/18 17:49 Chloride IVPB 2 units/hr ASDIR JULIO 4 mls/hr Administration Protocol 2 UNITS/HR Doxycycline Hyclate 100 mg/ 100 mls @ 100 mls/hr 07/29/18 22:00 Dextrose IVPB BID JULIO Lactulose 20 gm 07/28/18 10:00 07/29/18 11:01 Cephulac (Oral Use) GT 20 gm BID JULIO Administration Lorazepam 1 mg 07/28/18 00:12 Ativan Injection - IVPUSH Q6H PRN seizures Mupirocin 1 applic 07/29/18 22:00 Bactroban Ointment (For Decolonization) - NS 08/03/18 21:59 BID JULIO Pantoprazole Sodium 40 mg 07/28/18 10:00 07/29/18 09:06 Protonix Iv IVPUSH 40 mg DAILY JULIO Administration Simethicone 40 mg 07/28/18 10:00 07/29/18 11:01 Mylicon Liquid - GT 40 mg BID JULIO Administration Topiramate 100 mg 07/28/18 10:00 07/29/18 11:01 Topamax - GT 100 mg BID JULIO Administration ASSESSMENT/PLAN: ID Septic Shock likely secondary to aspiration pneumonia Patient is once again hypothermic and hypotensive -Sepsis workup ordered including portable CXR -Hypothermic to 95 rectally -Jesus Alberto hugger administered -ID following CV Cardiac arrest -Patient does not have a cardiac history -Tpn, EKG, and ECHO ordered Hypotension due to Septic Shock -Vasopressin and phenylephrine administered -Fluid resuscitation, 2L boluses so far and responsive Heparin for DVT prophylaxis Pulmonary Aspiration Pneumonia -Zosyn, Doxycycline Intubated -Mechanical ventilation settings RR 12/ PEEP 5/ FiO2 100/ TV 220 NEURO Seizure disorder -Onfi, Valium, and Topamax -Monitor for breakthrough seizure -Neuro following GI Protonix 40 for GI ppx FEN Monitor electrolytes -Replete as needed Patient has PEG tube Dispo: We will continue to follow the patient. Thank you for this consultative opportunity. Visit type - Emergency Visit Emergency Visit: Yes ED Registration Date: 07/23/18 Care time: The patient presented to the Emergency Department on the above date and was hospitalized for further evaluation of their emergent condition. - New Patient This patient is new to me today: Yes Date on this admission: 07/29/18 - Critical Care Critical Care patient: Yes Total Critical Care Time (in minutes): 45 Critical Care Statement: The care of this patient involved high complexity decision making to prevent further life threatening deterioration of the patient 's condition and/or to evaluate & treat vital organ system(s) failure or risk of failure.
--- NOTE | 2018-07-29 18:20 | PN ---
Progress Note, Physician Chief Complaint: 24HR EVENTS: notified by assigned RN at 8:15am that patient was in respiratory distress and had foamy secretions from mouth. Feedings were immediately d/yudith. STAT CXR ordered, IVF d/yudith, lasix 40mg x 1 dose, patient placed on NRB. STAT AB.38/42/115/24.2/97.7 At 10am pt placed back on BIPAP. Pt remained hemodynamically stable, but continued to require BIPAP support througout the course of the day. At 4:20pm code 99 was called. Patient was noted to be pulseless after nurse went in to investigate BIPAP alarm. Pt was intubated and resuscitated at 4:25pm. His initial BP was 131/117, HR 107. Post intubation ABG 7.06/70/77/18.8/88.1 At 5pm, pt placed on portable vent. Pt also hypotensive with SBP 60-70s. Phenyl started and rapidly increased to max dose. PT transferred to ICU. BP at that time 97/54. Family notified of pt's clinical status. - Current Medication List Current Medications: Active Medications Acetylcysteine (Mucomyst 20 Oral / Inh Use Only*) 1 mg NEB RQID JULIO Albuterol/Ipratropium (Duoneb -) 1 amp NEB RQID [facility] Last Admin: 07/29/18 12:39 Dose: 1 amp Chlorhexidine Gluconate (Hibiclens For Decolonization -) 1 applic TP HS [facility] Clobazam (Onfi -) 15 mg GT BID [facility] Last Admin: 07/29/18 09:06 Dose: 15 mg Diazepam (Valium -) 5 mg GT DAILY [facility] Last Admin: 07/29/18 09:06 Dose: 5 mg Heparin Sodium (Porcine) (Heparin -) 5,000 unit SQ TID [facility] Last Admin: 07/29/18 14:18 Dose: 5,000 unit Piperacillin Sod/Tazobactam (Sod 3.375 gm/ Dextrose) 50 mls @ 100 mls/hr IVPB Q8H-IV JULIO; Protocol Last Admin: 07/29/18 09:05 Dose: 100 mls/hr Sodium Chloride (Normal Saline -) 1,000 mls @ 1,000 mls/hr IV ASDIR STA Stop: 07/29/18 18:34 Phenylephrine HCl 20,000 mcg/ (Sodium Chloride) 250 mls @ 18.75 mls/hr IVPB ASDIR JULIO; Protocol Last Admin: 07/29/18 17:51 Dose: 60 mcg/min, 45 mls/hr Vasopressin 50 units/ Sodium (Chloride) 100 mls @ 4 mls/hr IVPB ASDIR JULIO; Protocol Last Admin: 07/29/18 17:49 Dose: 2 units/hr, 4 mls/hr Doxycycline Hyclate 100 mg/ (Dextrose) 100 mls @ 100 mls/hr IVPB BID JULIO Lactulose (Cephulac (Oral Use)) 20 gm GT BID JULIO Last Admin: 07/29/18 11:01 Dose: 20 gm Lorazepam (Ativan Injection -) 1 mg IVPUSH Q6H PRN PRN Reason: seizures Mupirocin (Bactroban Ointment (For Decolonization) -) 1 applic NS BID [facility] Stop: 08/03/18 21:59 Pantoprazole Sodium (Protonix Iv) 40 mg IVPUSH DAILY [facility] Last Admin: 07/29/18 09:06 Dose: 40 mg Simethicone (Mylicon Liquid -) 40 mg GT BID [facility] Last Admin: 07/29/18 11:01 Dose: 40 mg Topiramate (Topamax -) 100 mg GT BID [facility] Last Admin: 07/29/18 11:01 Dose: 100 mg - Objective Vital Signs: Vital Signs Temperature 98.2 F 07/29/18 08:00 Pulse Rate 72 07/29/18 17:49 Respiratory Rate 18 07/29/18 14:00 Blood Pressure 76/43 L 07/29/18 17:49 O2 Sat by Pulse Oximetry (%) 96 07/29/18 09:00 Constitutional: Yes: Severe Distress Eyes: Yes: PERRL HENT: Yes: Atraumatic Neck: Yes: Supple Cardiovascular: Yes: Regular Rate and Rhythm Respiratory: Yes: On Venti-Mask, Poor Air Entry, Rhonchi, SOB, Tachypnea Gastrointestinal: Yes: Soft, Hypoactive Bowel Sounds ...Rectal Exam: Yes: Deferred Genitourinary: Yes: Bates Present Musculoskeletal: Yes: Joint Stiffness, Muscle Weakness Extremities: Yes: Cool, Other (contracted) Edema: No Peripheral Pulses WNL: No Peripheral Pulses: Left Radial: 1+, Right Radial: 1+, Left Doralis Pedis: 1+, Right Dorsalis Pedis: 1+ Neurological: Yes: Pre-Existing Deficit, Weakness ...Motor Strength: LUE (no active ROM), LLE, RUE, RLE Psychiatric: Yes: Other (no interaction with staff) Labs: CBC, BMP 07/29/18 09:00 07/29/18 09:00 INR, PTT INR 0.96 (0.83-1.09) 07/23/18 17:10 - ....Imaging Chest X-ray: Report Reviewed (Portable chest x-ray. Comparison study July. Unchanged contour of the cardiomediastinal silhouette. Elevated right diaphragm with interposition of colon beneath the diaphragm. No airspace opacities are seen in the right upper lung zone. Increased lung markings are noted in the left lung. There is suggestion of air bronchograms in the left retrocardiac region concerning for infectious process. No evidence of left pneumothorax, or large pleural effusion. Broken sternal sutures. Reported By: Edin Yun MD 07/29/18 0901) Problem List - Problems (1) Hypernatremia Assessment/Plan: NA levels are almost back to normal Hold free water bolus 250ml q6hrs in light of aspiration stop D5W @ 42ml/hr Code(s): E87.0 - HYPEROSMOLALITY AND HYPERNATREMIA (2) UTI (urinary tract infection) Assessment/Plan: doxycycline 100mg BID, switch to IV dosing trend fever curve and WBC Code(s): N39.0 - URINARY TRACT INFECTION, SITE NOT SPECIFIED Qualifiers: Urinary tract infection type: site unspecified Hematuria presence: without hematuria Qualified Code(s): N39.0 - Urinary tract infection, site not specified (3) Asthma Assessment/Plan: albuterol QID Pulm following. frequent suctioning. Code(s): J45.909 - UNSPECIFIED ASTHMA, UNCOMPLICATED (4) Seizure disorder Assessment/Plan: Seizure disorder precautions maintained c/w topamax, onfi, valium c/w ativan 1mg prn for breakthrough seizures Code(s): G40.909 - EPILEPSY, UNSP, NOT INTRACTABLE, WITHOUT STATUS EPILEPTICUS (5) Aspiration pneumonia Assessment/Plan: continue with Zosyn hold feeds HOB elevated 45degrees Code(s): J69.0 - PNEUMONITIS DUE TO INHALATION OF FOOD AND VOMIT (6) Cardiac arrest due to other underlying condition Assessment/Plan: s/p asystolic arrest, ROSC 5min Pt transitioned from BIPAP to vent s/p cardiac arrest Phenyl started for hypotension transfer to ICU central and A-line placement needed serial ABGs to wean vent. Code(s): I46.8 - CARDIAC ARREST DUE TO OTHER UNDERLYING CONDITION (7) Respiratory failure Assessment/Plan: start mucomyst QID switch duoneb to albuterol aggressive chest PT VEnt management for resp compromise Code(s): J96.90 - RESPIRATORY FAILURE, UNSP, UNSP W HYPOXIA OR HYPERCAPNIA Impression/Plan Impression/Plan: DVT ppx: SCDs Heparin SQ FEN Replete lytes prn hold jevity feeds Visit type - Emergency Visit Emergency Visit: Yes ED Registration Date: 07/23/18 Care time: The patient presented to the Emergency Department on the above date and was hospitalized for further evaluation of their emergent condition. - New Patient This patient is new to me today: No - Critical Care Critical Care patient: No - Discharge Referral Referred to [facility] Med P.C.: No
[2018-07-29 18:21] LABS: ALLENS TEST POSITIVE
[2018-07-29] MEDS ORDERED: DEXTROSE 5%-WATER - 50 ML IVPB ONE (18:36)
[2018-07-29 19:19] LABS: URINE APPEARANCE CLOUDY; URINE BILIRUBIN NEGATIVE (<2.0 mg/dL); URINE COLOR YELLOW; URINE GLUCOSE (UA) NEGATIVE (NEGATIVE); URINE KETONE NEGATIVE (NEGATIVE); URINE LEUK ESTERASE 3+ (NEGATIVE); URINE NITRITE NEGATIVE (NEGATIVE); URINE PROTEIN 1+ (NEGATIVE); URINE UROBILINOGEN NEGATIVE mg/dL (0.2-1.0)
[2018-07-29 19:35] LABS: URINE MUCUS RARE
[2018-07-29] MEDS ORDERED: ACETYLCYSTEINE 20% 200MG/ML 30 ML VIAL *FOR ORAL / INH USE ONLY NEB SCH (20:00)
[2018-07-29] MEDS: ACETYLCYSTEINE 20% 200MG/ML 4 ML VIAL *FOR ORAL / INH USE ONLY NEB SCH (20:35)
[2018-07-29] MEDS: ALBUTEROL SO4 0.083% IH SOL 2.5 MG/3 ML VIAL.NEB. NEB SCH (20:35)
[2018-07-29] MEDS ORDERED: DEXTROSE 50%-WATER - 25 GM/50 ML VIAL IVPUSH ONE (20:42)
[2018-07-29] MEDS ORDERED: DEXTROSE 50%-WATER 25 GM/50 ML DISP.SYRIN ONE ×2 (20:47→21:16)
[2018-07-29] MEDS: CHLORHEXIDINE GLUCONATE 4% CLEANSER FOR DECOLONIZATION TP SCH (21:23)
[2018-07-29] MEDS: DOPAMINE 400 MG/D5W - 400,000 MCG/250 ML INFUS.BAG IVPB SCH (23:01)
[2018-07-29 23:06] LABS: ARTERIAL BLD GAS O2 SATURATION 97.5 % (90-98.9); ARTERIAL BLOOD GAS BASE EXCESS -11.9 meq/l (-2-2)
[2018-07-29 23:15] LABS: ALLENS TEST POSITIVE
[2018-07-29 23:19] LABS: ARTERIAL BLOOD GAS PCO2 67.4 mmHg (35-45); ARTERIAL BLOOD GAS pH 7.08 (7.35-7.45)
[2018-07-29] MEDS: MUPIROCIN 2% TOPICAL OINTMENT FOR DECOLONIZATION NS SCH (23:25)
[2018-07-30] MEDS: SIMETHICONE 40 MG/0.6 ML BOTTLE GT SCH ×3 (00:05→21:10)
[2018-07-30] MEDS ORDERED: ALBUTEROL SO4 0.083% IH SOL 2.5 MG/3 ML VIAL.NEB. NEB ONE (00:49)
[2018-07-30] MEDS ORDERED: DEXTROSE 5%-WATER - 50 ML IVPB ONE ×3 (01:19→17:56)
[2018-07-30] MEDS ORDERED: PIPERACILLIN/TAZOBACTAM 3.375 GM VIAL IVPB ONE ×3 (01:19→17:56)
[2018-07-30] MEDS ORDERED: PHENYLEPHRINE HCL 10 MG/1 ML SINGLE DOSE VIAL ONE (01:19)
--- NOTE | 2018-07-30 05:13 | PROC ---
Procedure Note Procedure: IO access - urgently required for pressure support Indication:IV access required. Multiple attempts at peripheral IV placement were made without success, two attempts at central line placement made without success Consent: Critical Intervention-unable to obtain VSS 61/29 HR 77, sat80% on vent pre Procedure: The area was prepped with The R tibia was cannulated with 15 gauge IO angiocath. The patient tolerated the procedure well. VSS 149/70 HR93 sat 93% on vent post
[2018-07-30] MEDS: DOXYCYCLINE INJECTION 100 MG in DEXTROSE 5%-WATER - 100 ML IVPB SCH ×3 (05:19→21:12)
[2018-07-30] MEDS: NOREPINEPHRINE BITARTRATE 8,000 MCG in DEXTROSE 5%-WATER - 492 ML IV SCH ×3 (05:19→11:00)
[2018-07-30] MEDS: PIPERACILLIN/TAZOB 3.375 GM 3.375 GM in DEXTROSE 5%-WATER - 50 ML IVPB SCH ×3 (05:22→18:00)
[2018-07-30] MEDS: HEPARIN NA (PORCINE) 5,000 UNITS/ML 1ML VIAL SQ SCH ×3 (06:07→21:10)
[2018-07-30] MEDS: ACETYLCYSTEINE 20% 200MG/ML 4 ML VIAL *FOR ORAL / INH USE ONLY NEB SCH ×3 (08:15→16:27)
[2018-07-30] MEDS: ALBUTEROL SO4 0.083% IH SOL 2.5 MG/3 ML VIAL.NEB. NEB SCH ×3 (08:15→16:27)
[2018-07-30] MEDS ORDERED: VASOPRESSIN 20 UNITS/ML VIAL IV ONE (08:26)
--- NOTE | 2018-07-30 09:39 | PN ---
Progress Note (short form) - Note Progress Note: Neurology Chief Complaint: Hypothermia History of Present Illness: This is a 28 y/o young man from the [facility] with a PMHx of: Seizure Disorder, Microcephaly, Profound MR, Paraplegia, Scoliosis who presented to the ED for hypothermia and lethargy. Patient's type copyist was at bedside reported that the patient was sent back from program because he looked ill appearing on day of admission. She reported that he felt cold and his temperature was in the low 90's on day of admission. On arrival to the ED patient was found to have a rectal temp of 90.1, P 48, R 20 BP 104/59 Jesus Alberto Hugger was placed core temp improved to 93.4. Chest Xray image- R-sided infiltrate. Started on Vancomycin and Zosyn for Aspiration Pneumonia. Bolus NS given in ER. Patient admitted to ICU for Septic Shock likely secondary to Aspiration Pneumonia. Rapid Flu Swab - negative for A+B Influenza. 07/29 patient with reported foaming at the mouth. On Onfi, valium, and topamax. Thereafter was noted to be pulseless after nurse went in to investigate BIPAP alarm. Pt was intubated and resuscitated Pt also hypotensive with SBP 60-70s. Patient transferred to ICU. Remains on on Zosyn. Also on phenylephrine. Active Medications Acetylcysteine (Mucomyst 20 Oral / Inh Use Only*) 600 mg NEB RQID [facility] Last Admin: 07/29/18 20:35 Dose: 600 mg Albuterol Sulfate (Ventolin 0.083% Nebulizer Soln -) 1 amp NEB RQID [facility] Last Admin: 07/29/18 20:35 Dose: 1 amp Chlorhexidine Gluconate (Hibiclens For Decolonization -) 1 applic TP HS [facility] Last Admin: 07/29/18 21:23 Dose: 1 applic Clobazam (Onfi -) 15 mg GT BID [facility] Last Admin: 07/29/18 21:21 Dose: 15 mg Diazepam (Valium -) 5 mg GT DAILY [facility] Last Admin: 07/29/18 09:06 Dose: 5 mg Heparin Sodium (Porcine) (Heparin -) 5,000 unit SQ TID [facility] Last Admin: 07/30/18 06:07 Dose: 5,000 unit Piperacillin Sod/Tazobactam (Sod 3.375 gm/ Dextrose) 50 mls @ 100 mls/hr IVPB Q8H-IV JULIO; Protocol Last Admin: 07/30/18 05:22 Dose: 100 mls/hr Phenylephrine HCl 20,000 mcg/ (Sodium Chloride) 250 mls @ 18.75 mls/hr IVPB ASDIR JULIO; Protocol Last Titration: 07/30/18 04:00 Dose: 166.66 mcg/min, 124.99 mls/hr Vasopressin 50 units/ Sodium (Chloride) 100 mls @ 4 mls/hr IVPB ASDIR JULIO; Protocol Last Titration: 07/30/18 04:30 Dose: 3 units/hr, 6 mls/hr Doxycycline Hyclate 100 mg/ (Dextrose) 100 mls @ 100 mls/hr IVPB BID [facility]UL[facility] Last Admin: 07/30/18 05:19 Dose: 100 mls/hr Dopamine HCl/Dextrose (Dopamine 400 Mg/D5w -) 400,000 mcg in 250 mls @ 9.611 mls/hr IVPB TITR JULIO; Protocol Last Titration: 07/30/18 05:10 Dose: 15 mcg/kg/min, 28.832 mls/hr Norepinephrine Bitartrate 8, (000 mcg/ Dextrose) 500 mls @ 18.75 mls/hr IV TITR JULIO; Protocol Last Admin: 07/30/18 05:19 Dose: Not Given Lactulose (Cephulac (Oral Use)) 20 gm GT BID [facility] Last Admin: 07/29/18 21:32 Dose: Not Given Lorazepam (Ativan Injection -) 1 mg IVPUSH Q6H PRN PRN Reason: seizures Mupirocin (Bactroban Ointment (For Decolonization) -) 1 applic NS BID [facility] Stop: 08/03/18 21:59 Last Admin: 07/29/18 23:25 Dose: 1 applic Pantoprazole Sodium (Protonix Iv) 40 mg IVPUSH DAILY [facility] Last Admin: 07/29/18 09:06 Dose: 40 mg Simethicone (Mylicon Liquid -) 40 mg GT BID [facility] Last Admin: 07/30/18 00:05 Dose: 40 mg Topiramate (Topamax -) 100 mg GT BID [facility] Last Admin: 07/29/18 21:20 Dose: 100 mg Physical Examination Vital Signs Period Temp Pulse Resp BP Sys/Saha Pulse Ox Last 24 Hr 95 F-97.5 F 66-98 12-20 47-149/29-92 95-97 Constitutional: Yes: No Distress, Calm, Other (Unresponsive) Eyes: Yes: Conjunctiva Clear, PERRL HENT: Yes: Other (Microcephaly) Neck: Yes: WNL, Supple, Trachea Midline Cardiovascular: Yes: Regular Rate and Rhythm, S1, S2 Respiratory: Yes: Rhonchi (Coarse, throughout), Wheezes, Other (on NRB) Gastrointestinal: Yes: Soft, Distention, Hypoactive Bowel Sounds, Other (PEG- intact) Renal/: Yes: Incontinence Breast(s): Yes: WNL Edema: No Peripheral Pulses WNL: Yes Integumentary: Yes: Erythema (groin), Pressure Ulcer (Stage I Coccyx), Rash ( groin) Neurological: Yes: Pre-Existing Deficit, Unresponsive Labs: CBCD WBC 15.1 K/mm3 (4.0-10.0) H 07/29/18 09:00 RBC 3.60 M/mm3 (4.00-5.60) L 07/29/18 09:00 Hgb 12.4 GM/dL (11.7-16.9) 07/29/18 09:00 Hct 37.8 % (35.4-49) 07/29/18 09:00 MCV 105.0 fl (80-96) H 07/29/18 09:00 MCHC 32.8 g/dl (32.0-35.9) 07/29/18 09:00 RDW 14.7 % (11.9-15.9) 07/29/18 09:00 Plt Count 410 K/MM3 (134-434) 07/29/18 09:00 MPV 7.8 fl (7.5-11.1) 07/29/18 09:00 CMP Sodium 146 mmol/L (136-145) H 07/29/18 09:00 Potassium 4.0 mmol/L (3.5-5.1) 07/29/18 09:00 Chloride 112 mmol/L (98-107) H 07/29/18 09:00 Carbon Dioxide 24 mmol/L (21-32) 07/29/18 09:00 Anion Gap 10 MMOL/L (8-16) 07/29/18 09:00 BUN 31 mg/dL (7-18) H 07/29/18 09:00 Creatinine 1.3 mg/dL (0.55-1.3) 07/29/18 09:00 Creat Clearance w eGFR > 60 (>60) 07/29/18 09:00 Random Glucose 88 mg/dL (74-106) 07/29/18 09:00 Calcium 9.3 mg/dL (8.5-10.1) 07/29/18 09:00 Total Bilirubin 0.5 mg/dL (0.2-1) 07/29/18 09:00 AST 27 U/L (15-37) 07/29/18 09:00 ALT 50 U/L (13-61) 07/29/18 09:00 Alkaline Phosphatase 226 U/L (45-117) H 07/29/18 09:00 Total Protein 7.8 g/dl (6.4-8.2) 07/29/18 09:00 Albumin 3.2 g/dl (3.4-5.0) L 07/29/18 09:00 CARDIAC ENZYMES Troponin I < 0.02 ng/ml (0.00-0.05) 07/23/18 17:10 Diagnostic CXRAY - completed Plan: This is a 28 y/o young man from the [facility] with a PMHx of: Seizure Disorder, Microcephaly, Profound MR, Paraplegia, Scoliosis who presented to the ED for hypothermia and lethargy. Patient's type copyist was at bedside reported that the patient was sent back from program because he looked ill appearing on day of admission. She reported that he felt cold and his temperature was in the low 90's on day of admission. On arrival to the ED patient was found to have a rectal temp of 90.1, P 48, R 20 BP 104/59 Jesus Alberto Hugger was placed core temp improved to 93.4 in ER. Chest Xray image- R-sided infiltrate. Started on Vancomycin and Zosyn for Aspiration Pneumonia. Bolus NS given in ER. Patient admitted to ICU for Septic Shock likely secondary to Aspiration Pneumonia.07/29 patient with reported foaming at the mouth. On Onfi, valium, and topamax. Thereafter was noted to be pulseless after nurse went in to investigate BIPAP alarm. Pt was intubated and resuscitated Pt also hypotensive with SBP 60-70s. Patient transferred to ICU. Remains on on Zosyn. Also on phenylephrine, wean as able. Will continue monitoring for abnormal movements. Respiratory mgmt per ICU. Critical care time 35 mins.
[2018-07-30] MEDS: LACTULOSE 20 GM/30 ML UDC (FOR ORAL USE ONLY) GT SCH ×2 (10:34→21:11)
[2018-07-30] MEDS: cloBAZam 10 MG TABLET GT SCH ×2 (10:34→21:09)
[2018-07-30] MEDS ORDERED: DOPAMINE 400 MG/D5W - 400,000 MCG/250 ML INFUS.BAG IVPB ONE (10:37)
[2018-07-30] MEDS: diazePAM 5 MG TABLET GT SCH (10:38)
[2018-07-30] MEDS: TOPIRAMATE 100 MG TABLET GT SCH ×2 (10:38→21:09)
[2018-07-30] MEDS: PANTOPRAZOLE SODIUM 40 MG VIAL IVPUSH SCH (10:38)
[2018-07-30] MEDS ORDERED: ALBUTEROL SO4 2.5/IPRATROPIUM 0.5 INH SOL 3 ML VIAL.NEB. NEB SCH ×2 (12:00→16:00)
--- NOTE | 2018-07-30 12:18 | PN ---
Teaching Attending Note Name of Resident: Robina Trujillo ATTENDING PHYSICIAN STATEMENT I saw and evaluated the patient. I reviewed the resident's note and discussed the case with the resident. I agree with the resident's findings and plan as documented. SUBJECTIVE: Patient seen and examined in the ICU. Events from overnight noted. S/P CP arrest. Now intubated on AC Mode of vent, 100% FiO2, 7 PEEP. High dose NE, Vasopressin, and Phenylephrine for hemodynamic support. Skin mottling noted. Intake & Output 07/27/18 07/28/18 07/29/18 07/30/18 23:59 23:59 23:59 23:59 Intake Total 1165 1020 2500 9706.8 Output Total 850 1350 Balance 315 1020 1150 9706.8 Weight 114 lb 114 lb 2 oz 113 lb 136 lb 3.2 oz Last Vital Signs Temp Pulse Resp BP Pulse Ox 97.8 F 92 H 18 102/67 93 L 07/30/18 10:00 07/30/18 11:15 07/30/18 12:04 07/30/18 11:45 07/30/18 10:00 Active Medications Acetylcysteine (Mucomyst 20 Oral / Inh Use Only*) 600 mg NEB RQID [facility] Last Admin: 07/30/18 11:28 Dose: 600 mg Albuterol Sulfate (Ventolin 0.083% Nebulizer Soln -) 1 amp NEB RQID [facility] Last Admin: 07/30/18 11:28 Dose: 1 amp Albuterol/Ipratropium (Duoneb -) 1 amp NEB RQID [facility] Chlorhexidine Gluconate (Hibiclens For Decolonization -) 1 applic TP HS [facility] Last Admin: 07/29/18 21:23 Dose: 1 applic Clobazam (Onfi -) 15 mg GT BID [facility] Last Admin: 07/30/18 10:34 Dose: 15 mg Diazepam (Valium -) 5 mg GT DAILY [facility] Last Admin: 07/30/18 10:38 Dose: 5 mg Fludrocortisone Acetate (Florinef -) 0.05 mg PO DAILY [facility] Heparin Sodium (Porcine) (Heparin -) 5,000 unit SQ TID [facility] Last Admin: 07/30/18 06:07 Dose: 5,000 unit Hydrocortisone Sodium Succinate (Solu-Cortef -) 50 mg IVPB Q6H [facility] Piperacillin Sod/Tazobactam (Sod 3.375 gm/ Dextrose) 50 mls @ 100 mls/hr IVPB Q8H-IV JULIO; Protocol Last Admin: 07/30/18 09:56 Dose: 100 mls/hr Vasopressin 50 units/ Sodium (Chloride) 100 mls @ 4 mls/hr IVPB ASDIR JULIO; Protocol Last Titration: 07/30/18 04:30 Dose: 3 units/hr, 6 mls/hr Doxycycline Hyclate 100 mg/ (Dextrose) 100 mls @ 100 mls/hr IVPB BID [facility]UL[facility] Last Admin: 07/30/18 10:39 Dose: 100 mls/hr Dopamine HCl/Dextrose (Dopamine 400 Mg/D5w -) 400,000 mcg in 250 mls @ 9.611 mls/hr IVPB TITR JULIO; Protocol Last Titration: 07/30/18 05:10 Dose: 15 mcg/kg/min, 28.832 mls/hr Norepinephrine Bitartrate 8, (000 mcg/ Dextrose) 500 mls @ 18.75 mls/hr IV TITR JULIO; Protocol Last Admin: 07/30/18 11:00 Dose: 15 mcg/min, 56.25 mls/hr Lactulose (Cephulac (Oral Use)) 20 gm GT BID [facility] Last Admin: 07/30/18 10:34 Dose: Not Given Lorazepam (Ativan Injection -) 1 mg IVPUSH Q6H PRN PRN Reason: seizures Mupirocin (Bactroban Ointment (For Decolonization) -) 1 applic NS BID [facility] Stop: 08/03/18 21:59 Last Admin: 07/29/18 23:25 Dose: 1 applic Pantoprazole Sodium (Protonix Iv) 40 mg IVPUSH DAILY [facility] Last Admin: 07/30/18 10:38 Dose: 40 mg Simethicone (Mylicon Liquid -) 40 mg GT BID [facility] Last Admin: 07/30/18 00:05 Dose: 40 mg Topiramate (Topamax -) 100 mg GT BID [facility] Last Admin: 07/30/18 10:38 Dose: 100 mg Constitutional: Yes: Intubated, poorly responsive Eyes: Yes: Conjunctiva Clear Cardiovascular: Yes: Bradycardia, S1, S2 Respiratory: Yes: Bilateral coarse Rhonchi Gastrointestinal: Yes: Normal Bowel Sounds, Soft, Other (surgical scar, PEG tube ) Extremities: Yes: Other (contracted LE) Edema: No Neurological: Yes: Poorly responsive Labs: Laboratory Results - last 24 hr 07/29/18 07/29/18 07/29/18 10:35 16:36 17:25 Anticoagulation Therapy No Result Required. No Result Required. No Result Required. Puncture Site Right radial Md puncture Right radial ABG pH 7.08 L* D 7.06 L* 7.06 L* ABG pCO2 at Pt Temp 67.4 H* D 70.0 H* 68.7 H* ABG pO2 at Pt Temp 136.0 H D 77.7 L D 177.0 H* ABG HCO3 19.0 L 18.8 L 18.7 L ABG O2 Sat (Measured) 97.5 88.1 L 97.7 ABG O2 Content 17.7 16.0 16.7 ABG Base Excess -11.9 L* -12.6 L* -12.3 L* Eliezer Test Positive Positive Positive O2 Delivery Device No Result Required. [facility]. vent Oxygen Flow Rate Yes 100% 100% Vent Mode No Result Required. No Result Required. No Result Required. Vent Rate No Result Required. No Result Required. No Result Required. Mechanical Rate No Result Required. No Result Required. No Result Required. PEEP Pressure Support Vent No Result Required. No Result Required. No Result Required. POC Glucometer Urine Color Urine Appearance Urine pH Ur Specific [place] Urine Protein Urine Glucose (UA) Urine Ketones Urine Blood Urine Nitrite Urine Bilirubin Urine Urobilinogen Ur Leukocyte Esterase Urine WBC (Auto) Urine RBC (Auto) Urine Mucus Stool Occult Blood 07/29/18 07/29/18 07/29/18 18:30 20:41 21:20 Anticoagulation Therapy Puncture Site ABG pH ABG pCO2 at Pt Temp ABG pO2 at Pt Temp ABG HCO3 ABG O2 Sat (Measured) ABG O2 Content ABG Base Excess Eliezer Test O2 Delivery Device Oxygen Flow Rate Vent Mode Vent Rate Mechanical Rate PEEP Pressure Support Vent POC Glucometer [id number] Urine Color Yellow Urine Appearance Cloudy Urine pH 6.0 Ur Specific [place] 1.006 L Urine Protein 1+ H Urine Glucose (UA) Negative Urine Ketones Negative Urine Blood 3+ H Urine Nitrite Negative Urine Bilirubin Negative Urine Urobilinogen Negative Ur Leukocyte Esterase 3+ H Urine WBC (Auto) 398 Urine RBC (Auto) 31 Urine Mucus Rare Stool Occult Blood Negative 07/29/18 07/30/18 22:38 01:15 Anticoagulation Therapy Puncture Site ABG pH ABG pCO2 at Pt Temp ABG pO2 at Pt Temp ABG HCO3 ABG O2 Sat (Measured) ABG O2 Content ABG Base Excess Eliezer Test O2 Delivery Device Oxygen Flow Rate Vent Mode Vent Rate Mechanical Rate PEEP Pressure Support Vent POC Glucometer [id number] 103.43970 Urine Color Urine Appearance Urine pH Ur Specific [place] Urine Protein Urine Glucose (UA) Urine Ketones Urine Blood Urine Nitrite Urine Bilirubin Urine Urobilinogen Ur Leukocyte Esterase Urine WBC (Auto) Urine RBC (Auto) Urine Mucus Stool Occult Blood Assessment/Plan Suspected Sepsis Severe MR Seizure D/O Wheelchair bound Chronic aspirations with suspected new episode of aspiration pneumonitis versus HCAP Breakthrough Seizures Hypothermia AC Mode of vent: check ABG Follow all labs (all are pending) ABX AEDs Aspiration precautions Pressors to maintain MAP > 65 BD TX PRN GOC discussions with family / Olivia as his overall outcome appears grave Dr Brito Critical care time spent in reviewing chart, evaluating patient and formulating plan - 36 minutes.
[2018-07-30] MEDS ORDERED: LORazepam 2 MG/ML SDV VIAL IVPUSH PRN (12:33)
--- NOTE | 2018-07-30 13:18 | PROC ---
Central Line Insertion Indication: CVP Monitoring, Poor Venous Access, Sepsis, Vasopressor Risks and Benefits Explained: No (emergency) Consent on Chart: No (emergency) Central Line: Triple Lumen Catheter Anesthesia: 1% Lidocaine Sterile Technique: Yes Ultrasound Guided Assistance: Yes Position: Right Internal Jugular Post Insertion: Yes: Bilateral Breath Sounds, Bilateral Chest Expansion, Chest X-Ray Ordered (no pneumothorax ) Sterile Dressing Applied: Yes Remarks: no issues one attempt.
[2018-07-30] MEDS: MUPIROCIN 2% TOPICAL OINTMENT FOR DECOLONIZATION NS SCH ×2 (13:29→21:11)
[2018-07-30] MEDS: FLUDROCORTISONE ACETATE 0.1 MG TABLET (FP) GT SCH (13:30)
[2018-07-30] MEDS: HYDROCORTISONE SOD SUCCINATE 100 MG/2 ML VIAL IVPB SCH ×2 (13:40→18:01)
[2018-07-30 13:41] LABS: BASO % 0.3 % (0-2.0); EOS % 2.1 % (0-4.5); HEMOGLOBIN 12.5 GM/dL (11.7-16.9); LYMPH % 7.6 % (8-40); MCH 34.5 pg (25.7-33.7); MCHC 32.1 g/dl (32.0-35.9); MEAN CELL VOLUME 107.8 fl (80-96); MEAN PLT VOLUME 7.9 fl (7.5-11.1); MONO % 3.7 % (3.8-10.2); NEUT % 86.3 % (42.8-82.8); PLATELET COUNT 417 K/MM3 (134-434); RBC 3.62 M/mm3 (4.00-5.60); RDW 15.6 % (11.9-15.9); WHITE BLOOD COUNT 25.7 K/mm3 (4.0-10.0)
--- NOTE | 2018-07-30 13:46 | ECHO ---
Name: CONOR SIMMS Exam:Adult Echocardiogram Study Date: 07/30/2018 10:35 AM Age: 28 yrs Reason For Study: R/O [place] Height: 54 in Weight: 113 lb BSA: 1.4 m2 BP: 57/28 mmHg MMode/2D Measurements & Calculations IVSd: 0.72 cm Ao root diam: 3.2 cm LVIDd: 3.9 cm LA dimension: 1.9 cm LVIDs: 3.1 cm ACS: 1.8 cm LVPWd: 0.70 cm IVSs: 0.88 cm LVPWs: 0.82 cm EDV(Teich): 66.6 ml ESV(Teich): 37.0 ml Doppler Measurements & Calculations MV E max lexx: 72.6 cm/sec Ao V2 max: 108.6 cm/sec MV A max lexx: 40.0 cm/sec Ao max P.7 mmHg MV E/A: 1.8 Ao V2 mean: 84.0 cm/sec Ao mean P.0 mmHg Ao V2 VTI: 21.0 cm TR max lexx: 289.1 cm/sec PI end-d lexx: 142.5 cm/sec TR max P.4 mmHg Med Peak E' Lexx: 6.1 cm/sec Med E/e': 11.8 Lat Peak E' Lexx: 9.2 cm/sec Lat E/e': 7.9 Procedure A complete two-dimensional transthoracic echocardiogram was performed (2D, M-mode, Doppler and color flow Doppler). Left Ventricle The left ventricle is normal in size. Left ventricular systolic function is mildly reduced. Ejection Fraction = 45-50%. There is mild global hypokinesis of the left ventricle. Right Ventricle The right ventricle is mildly dilated. The right ventricular systolic function is mildly reduced. Atria Normal left and right atrial size and function. Mitral Valve There is no mitral regurgitation noted. Tricuspid Valve There is mild to moderate tricuspid regurgitation. Right ventricular systolic pressure is normal. Aortic Valve The aortic valve is trileaflet. No hemodynamically significant valvular aortic stenosis. No aortic regurgitation is present. Pulmonic Valve Trace pulmonic valvular regurgitation. Great Vessels The aortic root is normal size. Pericardium/Pleura There is no pericardial effusion. Interpretation Summary Left ventricular systolic function is mildly reduced. There is mild global hypokinesis of the left ventricle. The right ventricle is mildly dilated. The right ventricular systolic function is mildly reduced. There is mild to moderate tricuspid regurgitation. Trace pulmonic valvular regurgitation. MD Pepe Ramos 07/30/2018 01:45 PM
--- NOTE | 2018-07-30 14:03 | PN ---
Physical Exam: This is a 28 y/o young man from the [facility] with a PMHx of: Seizure Disorder, Microcephaly, Profound MR, Paraplegia, Scoliosis who presented to the ED for hypothermia and lethargy. Patient's bilingual nanny was at bedside reported that the patient was sent back from program because he looked ill appearing on day of admission. She reported that he felt cold and his temperature was in the low 90's on day of admission. On arrival to the ED patient was found to have a rectal temp of 90.1, P 48, R 20 BP 104/59 Jesus Alberto Hugger was placed core temp improved to 93.4. Chest Xray image- R-sided infiltrate. Started on Vancomycin and Zosyn for Aspiration Pneumonia. Bolus NS given in ER. Patient admitted to ICU for Septic Shock likely secondary to Aspiration Pneumonia. Rapid Flu Swab - negative for A+B Influenza. 07/29 patient with reported foaming at the mouth. On Onfi, valium, and topamax. Thereafter was noted to be pulseless after nurse went in to investigate BIPAP alarm. Pt was intubated and resuscitated Pt also hypotensive with SBP 60-70s. Patient transferred to ICU. Remains on on Zosyn. Also on phenylephrine. Subjective : The patient was seen examined at bedside. Remains on vent support. No apparent distress. OBJECTIVE: Vital Signs Period Temp Pulse Resp BP Sys/Saha Pulse Ox Last 24 Hr 95 F-97.8 F 66-98 12-20 47-149/27-92 93-97 Constitutional: Yes: No Distress, Calm, Other (Unresponsive) Eyes: Yes: Conjunctiva Clear, PERRL HENT: Yes: Other (Microcephaly) Neck: Yes: WNL, Supple, Trachea Midline Cardiovascular: Yes: Regular Rate and Rhythm, S1, S2 Respiratory: Yes: Rhonchi (Coarse, throughout), Wheezes, Other (on NRB) Gastrointestinal: Yes: Soft, Distention, Hypoactive Bowel Sounds, Other (PEG- intact) Renal/: Yes: Incontinence Breast(s): Yes: WNL Edema: No Peripheral Pulses WNL: Yes Integumentary: Yes: Erythema (groin), Pressure Ulcer (Stage I Coccyx), Rash ( groin) Neurological: Yes: Pre-Existing Deficit, Unresponsive Laboratory Results - last 24 hr 07/29/18 07/29/18 07/29/18 10:35 16:36 17:25 Anticoagulation Therapy No Result Required. No Result Required. No Result Required. Puncture Site Right radial Md puncture Right radial ABG pH 7.08 L* D 7.06 L* 7.06 L* ABG pCO2 at Pt Temp 67.4 H* D 70.0 H* 68.7 H* ABG pO2 at Pt Temp 136.0 H D 77.7 L D 177.0 H* ABG HCO3 19.0 L 18.8 L 18.7 L ABG O2 Sat (Measured) 97.5 88.1 L 97.7 ABG O2 Content 17.7 16.0 16.7 ABG Base Excess -11.9 L* -12.6 L* -12.3 L* Eliezer Test Positive Positive Positive O2 Delivery Device No Result Required. Ambu Mec. vent Oxygen Flow Rate Yes 100% 100% Vent Mode No Result Required. No Result Required. No Result Required. Vent Rate No Result Required. No Result Required. No Result Required. Mechanical Rate No Result Required. No Result Required. No Result Required. PEEP Pressure Support Vent No Result Required. No Result Required. No Result Required. POC Glucometer Urine Color Urine Appearance Urine pH Ur Specific [place] Urine Protein Urine Glucose (UA) Urine Ketones Urine Blood Urine Nitrite Urine Bilirubin Urine Urobilinogen Ur Leukocyte Esterase Urine WBC (Auto) Urine RBC (Auto) Urine Mucus Stool Occult Blood 07/29/18 07/29/18 07/29/18 18:30 20:41 21:20 Anticoagulation Therapy Puncture Site ABG pH ABG pCO2 at Pt Temp ABG pO2 at Pt Temp ABG HCO3 ABG O2 Sat (Measured) ABG O2 Content ABG Base Excess Eliezer Test O2 Delivery Device Oxygen Flow Rate Vent Mode Vent Rate Mechanical Rate PEEP Pressure Support Vent POC Glucometer 51.89424 Urine Color Yellow Urine Appearance Cloudy Urine pH 6.0 Ur Specific [place] 1.006 L Urine Protein 1+ H Urine Glucose (UA) Negative Urine Ketones Negative Urine Blood 3+ H Urine Nitrite Negative Urine Bilirubin Negative Urine Urobilinogen Negative Ur Leukocyte Esterase 3+ H Urine WBC (Auto) 398 Urine RBC (Auto) 31 Urine Mucus Rare Stool Occult Blood Negative 07/29/18 07/30/18 22:38 01:15 Anticoagulation Therapy Puncture Site ABG pH ABG pCO2 at Pt Temp ABG pO2 at Pt Temp ABG HCO3 ABG O2 Sat (Measured) ABG O2 Content ABG Base Excess Eliezer Test O2 Delivery Device Oxygen Flow Rate Vent Mode Vent Rate Mechanical Rate PEEP Pressure Support Vent POC Glucometer 78.86712 103.05515 Urine Color Urine Appearance Urine pH Ur Specific [place] Urine Protein Urine Glucose (UA) Urine Ketones Urine Blood Urine Nitrite Urine Bilirubin Urine Urobilinogen Ur Leukocyte Esterase Urine WBC (Auto) Urine RBC (Auto) Urine Mucus Stool Occult Blood Active Medications Generic Name Dose Route Start Last Admin Trade Name Freq PRN Reason Stop Dose Admin Acetylcysteine 600 mg 07/29/18 20:00 07/30/18 11:28 Mucomyst 20 Oral / Inh Use Only* NEB 600 mg RQID JULIO Administration Albuterol Sulfate 1 amp 07/29/18 20:00 07/30/18 11:28 Ventolin 0.083% Nebulizer Soln - NEB 1 amp RQID JULIO Administration Albuterol/Ipratropium 1 amp 07/30/18 16:00 Duoneb - NEB RQID JULIO Chlorhexidine Gluconate 1 applic 07/29/18 22:00 07/29/18 21:23 Hibiclens For Decolonization - TP 1 applic HS JULIO Administration Clobazam 15 mg 07/30/18 22:00 Onfi - GT BID JULIO Diazepam 5 mg 07/31/18 10:00 Valium - GT DAILY [facility] Fludrocortisone Acetate 0.05 mg 07/30/18 12:00 Florinef - GT DAILY [facility] Heparin Sodium (Porcine) 5,000 unit 07/30/18 14:00 Heparin - SQ TID [facility] Hydrocortisone Sodium Succinate 50 mg 07/30/18 12:30 Solu-Cortef - IVPB Q6H JULIO Vasopressin 50 units/ Sodium 100 mls @ 4 mls/hr 07/29/18 17:45 07/30/18 04:30 Chloride IVPB 3 units/hr ASDIR JULIO 6 mls/hr Titration Protocol 2 UNITS/HR Doxycycline Hyclate 100 mg/ 100 mls @ 100 mls/hr 07/29/18 22:00 07/30/18 10: 39 Dextrose IVPB 100 mls/hr BID JULIO Administration Dopamine HCl/Dextrose 400,000 mcg in 250 mls @ 9.611 mls/hr 07/29/18 23:00 05:10 Dopamine 400 Mg/D5w - IVPB 15 mcg/kg/min TITR JULIO 28.832 mls/hr Titration Protocol 5 MCG/KG/MIN Norepinephrine Bitartrate 8, 500 mls @ 18.75 mls/hr 07/30/18 01:30 07/30/18 11:00 000 mcg/ Dextrose IV 15 mcg/min TITR JULIO 56.25 mls/hr Administration Protocol 5 MCG/MIN Piperacillin Sod/Tazobactam 50 mls @ 100 mls/hr 07/30/18 18:00 Sod 3.375 gm/ Dextrose IVPB Q8H-IV JULIO Protocol Lactulose 20 gm 07/30/18 22:00 Cephulac (Oral Use) GT BID JULIO Lorazepam 1 mg 07/30/18 12:33 Ativan Injection - IVPUSH Q6H PRN seizures Mupirocin 1 applic 07/29/18 22:00 07/30/18 13:29 Bactroban Ointment (For Decolonization) - NS 08/03/18 21:59 Not Given BID JULIO Pantoprazole Sodium 40 mg 07/31/18 10:00 Protonix Iv IVPUSH DAILY JULIO Simethicone 40 mg 07/30/18 22:00 Mylicon Liquid - GT BID JULIO Topiramate 100 mg 07/30/18 22:00 Topamax - GT BID JULIO ASSESSMENT/PLAN: # Acute Respiratory Failure 2/2 Sepstic shock 2/2 possible aspiration PNA. Currently on vent support, pressors IV abx, Would f/u with Pulm/CC re: Vent mgmt. F/U with cultures to de-escalate IV abx accordingly. # C/W other ongoing medical mgmt. Visit type - Emergency Visit Emergency Visit: Yes ED Registration Date: 07/23/18 Care time: The patient presented to the Emergency Department on the above date and was hospitalized for further evaluation of their emergent condition. - New Patient This patient is new to me today: Yes Date on this admission: 07/30/18 - Critical Care Critical Care patient: Yes Total Critical Care Time (in minutes): 35 Critical Care Statement: The care of this patient involved high complexity decision making to prevent further life threatening deterioration of the patient 's condition and/or to evaluate & treat vital organ system(s) failure or risk of failure. - Discharge Referral Referred to [facility] No
[2018-07-30 14:14] LABS: ALBUMIN 1.8 g/dl (3.4-5.0); ALK PHOS 147 U/L (45-117); ANION GAP 7 MMOL/L (8-16); BILIRUBIN,TOTAL 0.3 mg/dL (0.2-1); BLOOD UREA NITROGEN 25 mg/dL (7-18); CALCIUM 7.1 mg/dL (8.5-10.1); CHLORIDE 122 mmol/L (98-107); CO2 17 mmol/L (21-32); CREATININE 1.2 mg/dL (0.55-1.3); GLUCOSE,RANDOM 175 mg/dL (74-106); MAGNESIUM 1.5 mg/dL (1.8-2.4); PHOSPHOROUS 3.3 mg/dL (2.5-4.9); POTASSIUM 4.3 mmol/L (3.5-5.1); SGOT/AST 69 U/L (15-37); SGPT/ALT 51 U/L (13-61); SODIUM 146 mmol/L (136-145); TOT PROT 4.9 g/dl (6.4-8.2)
[2018-07-30] MEDS ORDERED: MAGNESIUM SULF 50% (8.12 MEQ/2 ML-1 GM VIAL) IVPB ONE (14:58)
[2018-07-30 15:27] LABS: ANISOCYTOSIS 1+; MACROCYTOSIS 1+; PLATELET ESTIMATE NORMAL
--- NOTE | 2018-07-30 15:29 | PN ---
Physical Exam: SUBJECTIVE: Patient seen and examined this morning. Patient brought down to ICU after Code 99 s/p intubation. Difficulty with obtaining access; I/O placed overnight was removed this AM, RIJ Central line placed. OBJECTIVE: Vital Signs Period Temp Pulse Resp BP Sys/Saha Pulse Ox Last 24 Hr 95 F-97.8 F 66-98 12-20 47-149/27-92 93-97 GENERAL: Intubated HEAD: Microcephaly, NCAT EYES: PERRL ENT: Moist mucous membranes. NECK: Supple LUNGS: Mechanical breath sounds HEART: Regular rate and rhythm, S1, S2 without murmur ABDOMEN: Soft, nontender, nondistended, + bowel sounds EXTREMITIES: 2+ pulses, Limbs contracted, no edema. NEUROLOGICAL: Sedated SKIN: Warm, dry Laboratory Results - last 24 hr 07/29/18 07/29/18 07/29/18 10:35 16:36 17:25 WBC RBC Hgb Hct MCV MCH MCHC RDW Plt Count MPV Absolute Neuts (auto) Neutrophils % Lymphocytes % Monocytes % Eosinophils % Basophils % Nucleated RBC % Anticoagulation Therapy No Result Required. No Result Required. No Result Required. Puncture Site Right radial Md puncture Right radial ABG pH 7.08 L* D 7.06 L* 7.06 L* ABG pCO2 at Pt Temp 67.4 H* D 70.0 H* 68.7 H* ABG pO2 at Pt Temp 136.0 H D 77.7 L D 177.0 H* ABG HCO3 19.0 L 18.8 L 18.7 L ABG O2 Sat (Measured) 97.5 88.1 L 97.7 ABG O2 Content 17.7 16.0 16.7 ABG Base Excess -11.9 L* -12.6 L* -12.3 L* Eliezer Test Positive Positive Positive O2 Delivery Device No Result Required. Ambu Mec. vent Oxygen Flow Rate Yes 100% 100% Vent Mode No Result Required. No Result Required. No Result Required. Vent Rate No Result Required. No Result Required. No Result Required. Mechanical Rate No Result Required. No Result Required. No Result Required. PEEP Pressure Support Vent No Result Required. No Result Required. No Result Required. Sodium Potassium Chloride Carbon Dioxide Anion Gap BUN Creatinine Creat Clearance w eGFR POC Glucometer Random Glucose Calcium Phosphorus Magnesium Total Bilirubin AST ALT Alkaline Phosphatase Total Protein Albumin Urine Color Urine Appearance Urine pH Ur Specific [place] Urine Protein Urine Glucose (UA) Urine Ketones Urine Blood Urine Nitrite Urine Bilirubin Urine Urobilinogen Ur Leukocyte Esterase Urine WBC (Auto) Urine RBC (Auto) Urine Mucus Stool Occult Blood 07/29/18 07/29/18 07/29/18 18:30 20:41 21:20 WBC RBC Hgb Hct MCV MCH MCHC RDW Plt Count MPV Absolute Neuts (auto) Neutrophils % Lymphocytes % Monocytes % Eosinophils % Basophils % Nucleated RBC % Anticoagulation Therapy Puncture Site ABG pH ABG pCO2 at Pt Temp ABG pO2 at Pt Temp ABG HCO3 ABG O2 Sat (Measured) ABG O2 Content ABG Base Excess Eliezer Test O2 Delivery Device Oxygen Flow Rate Vent Mode Vent Rate Mechanical Rate PEEP Pressure Support Vent Sodium Potassium Chloride Carbon Dioxide Anion Gap BUN Creatinine Creat Clearance w eGFR POC Glucometer 51.86651 Random Glucose Calcium Phosphorus Magnesium Total Bilirubin AST ALT Alkaline Phosphatase Total Protein Albumin Urine Color Yellow Urine Appearance Cloudy Urine pH 6.0 Ur Specific [place] 1.006 L Urine Protein 1+ H Urine Glucose (UA) Negative Urine Ketones Negative Urine Blood 3+ H Urine Nitrite Negative Urine Bilirubin Negative Urine Urobilinogen Negative Ur Leukocyte Esterase 3+ H Urine WBC (Auto) 398 Urine RBC (Auto) 31 Urine Mucus Rare Stool Occult Blood Negative 07/29/18 07/30/18 07/30/18 22:38 01:15 13:15 WBC 25.7 H RBC 3.62 L Hgb 12.5 Hct 39.0 MCV 107.8 H MCH 34.5 H MCHC 32.1 RDW 15.6 Plt Count 417 MPV 7.9 Absolute Neuts (auto) 22.2 H Neutrophils % 86.3 H D Lymphocytes % 7.6 L D Monocytes % 3.7 L Eosinophils % 2.1 Basophils % 0.3 Nucleated RBC % 0 Anticoagulation Therapy Puncture Site ABG pH ABG pCO2 at Pt Temp ABG pO2 at Pt Temp ABG HCO3 ABG O2 Sat (Measured) ABG O2 Content ABG Base Excess Eliezer Test O2 Delivery Device Oxygen Flow Rate Vent Mode Vent Rate Mechanical Rate PEEP Pressure Support Vent Sodium Potassium Chloride Carbon Dioxide Anion Gap BUN Creatinine Creat Clearance w eGFR POC Glucometer 78.58056 103.71367 Random Glucose Calcium Phosphorus Magnesium Total Bilirubin AST ALT Alkaline Phosphatase Total Protein Albumin Urine Color Urine Appearance Urine pH Ur Specific [place] Urine Protein Urine Glucose (UA) Urine Ketones Urine Blood Urine Nitrite Urine Bilirubin Urine Urobilinogen Ur Leukocyte Esterase Urine WBC (Auto) Urine RBC (Auto) Urine Mucus Stool Occult Blood 07/30/18 13:15 WBC RBC Hgb Hct MCV MCH MCHC RDW Plt Count MPV Absolute Neuts (auto) Neutrophils % Lymphocytes % Monocytes % Eosinophils % Basophils % Nucleated RBC % Anticoagulation Therapy Puncture Site ABG pH ABG pCO2 at Pt Temp ABG pO2 at Pt Temp ABG HCO3 ABG O2 Sat (Measured) ABG O2 Content ABG Base Excess Eliezer Test O2 Delivery Device Oxygen Flow Rate Vent Mode Vent Rate Mechanical Rate PEEP Pressure Support Vent Sodium 146 H Potassium 4.3 Chloride 122 H Carbon Dioxide 17 L Anion Gap 7 L BUN 25 H Creatinine 1.2 Creat Clearance w eGFR > 60 POC Glucometer Random Glucose 175 H Calcium 7.1 L Phosphorus 3.3 Magnesium 1.5 L Total Bilirubin 0.3 AST 69 H ALT 51 Alkaline Phosphatase 147 H Total Protein 4.9 L Albumin 1.8 L Urine Color Urine Appearance Urine pH Ur Specific [place] Urine Protein Urine Glucose (UA) Urine Ketones Urine Blood Urine Nitrite Urine Bilirubin Urine Urobilinogen Ur Leukocyte Esterase Urine WBC (Auto) Urine RBC (Auto) Urine Mucus Stool Occult Blood Microbiology 07/25/18 13:36 Nasopharyngeal Swab Respiratory Virus (PCR) - Final 07/23/18 17:10 Blood - Peripheral Venous Blood Culture - Final NO GROWTH AFTER 5 DAYS INCUBATION 07/23/18 17:10 Blood - Peripheral Venous Blood Culture - Final NO GROWTH AFTER 5 DAYS INCUBATION 07/24/18 09:49 Urine - Urine Bates Legionella Antigen - Final 07/24/18 09:49 Urine - Urine Bates Streptococcus pneumoniae Antigen (M - Final 07/24/18 17:10 Sputum - Expectorated Gram Stain - Final 07/24/18 17:10 Sputum - Expectorated Sputum Culture - Final NORMAL RESPIRATORY KRISTIAN 07/23/18 17:51 Urine - Urine - Catheterized Urine Culture - Final Morganella Morganii Escherichia Coli Active Medications Acetylcysteine (Mucomyst 20 Oral / Inh Use Only*) 600 mg NEB RQID JULIO Last Admin: 07/30/18 11:28 Dose: 600 mg Albuterol Sulfate (Ventolin 0.083% Nebulizer Soln -) 1 amp NEB RQID [facility] Last Admin: 07/30/18 11:28 Dose: 1 amp Albuterol/Ipratropium (Duoneb -) 1 amp NEB RQID [facility] Chlorhexidine Gluconate (Hibiclens For Decolonization -) 1 applic TP HS [facility] Last Admin: 07/29/18 21:23 Dose: 1 applic Clobazam (Onfi -) 15 mg GT BID [facility] Diazepam (Valium -) 5 mg GT DAILY [facility] Fludrocortisone Acetate (Florinef -) 0.05 mg GT DAILY [facility] Heparin Sodium (Porcine) (Heparin -) 5,000 unit SQ TID [facility] Hydrocortisone Sodium Succinate (Solu-Cortef -) 50 mg IVPB Q6H JULIO Vasopressin 50 units/ Sodium (Chloride) 100 mls @ 4 mls/hr IVPB ASDIR JULIO; Protocol Last Titration: 07/30/18 04:30 Dose: 3 units/hr, 6 mls/hr Doxycycline Hyclate 100 mg/ (Dextrose) 100 mls @ 100 mls/hr IVPB BID [facility] Last Admin: 07/30/18 10:39 Dose: 100 mls/hr Dopamine HCl/Dextrose (Dopamine 400 Mg/D5w -) 400,000 mcg in 250 mls @ 9.611 mls/hr IVPB TITR [facility]; Protocol Last Titration: 07/30/18 05:10 Dose: 15 mcg/kg/min, 28.832 mls/hr Norepinephrine Bitartrate 8, (000 mcg/ Dextrose) 500 mls @ 18.75 mls/hr IV TITR [facility]; Protocol Last Admin: 07/30/18 11:00 Dose: 15 mcg/min, 56.25 mls/hr Piperacillin Sod/Tazobactam (Sod 3.375 gm/ Dextrose) 50 mls @ 100 mls/hr IVPB Q8H-IV JULIO; Protocol Lactulose (Cephulac (Oral Use)) 20 gm GT BID [facility] Lorazepam (Ativan Injection -) 1 mg IVPUSH Q6H PRN PRN Reason: seizures Mupirocin (Bactroban Ointment (For Decolonization) -) 1 applic NS BID [facility] Stop: 08/03/18 21:59 Last Admin: 07/30/18 13:29 Dose: Not Given Pantoprazole Sodium (Protonix Iv) 40 mg IVPUSH DAILY [facility] Simethicone (Mylicon Liquid -) 40 mg GT BID [facility] Topiramate (Topamax -) 100 mg GT BID [facility] ASSESSMENT/PLAN: 28 y/o M from [facility] with a PMHx of Seizure Disorder, Microcephaly, Profound MR, Paraplegia, Scoliosis presented to the ED with severe sepsis was transferred to the ICU after a Code 99 was called (07/29/18) for PEA s/p intubation #ID Septic Shock -Likely due to aspiration pneumonia -Hypothermic on arrival in ICU; Improved since -Hypotensive on arrival in ICU; Improved since however pressures remain Labile -Currently on Norepinephrine, Dopamine Vasopressin -Blood cx NGTD -Sputum cx, RSV Swab, urine antigen for Strep/legionella negative -Urine cx + for Morganelle Morgani, E. Coli -CXR shows some improvement -Jesus Alberto serrato administered -ID (Dr. Bauer) consulted -Continue Hydrocortisone 50 q6H, Fludrocortisone 0.05 Daily -Palliative care consulted #Cardiovascular S/P Cardiac arrest -Patient does not have a cardiac history -Troponin < 0.02 -ECHO: LV Systolic function is mildly reduced, mild global hypokinesis of the LV Hypotension due to Septic Shock -Hypotensive s/p 2L Fluid resuscitation -Pressures remain Labile, Continue Norepinephrine, Dopamine Vasopressin #Pulmonary Septic shock likely due to Aspiration Pneumonia -Continue Zosyn, Doxycycline, Vancomycin -Intubated, Vent settings 18/280/100%/+5 #Neuro Hx of Seizure disorder -Continue Onfi, Valium, and Topamax -Ativan PRN -Monitor for breakthrough seizure -Neurology (Dr. Escobedo) Consulted, appreciate rec's #PPx -DVT: Heparin TID -GI: Protonix 40 Daily #FEN -No standing fluids -Replete Mag -NPO Dispo: Continue to monitor in ICU Visit type - Emergency Visit Emergency Visit: Yes ED Registration Date: 07/23/18 Care time: The patient presented to the Emergency Department on the above date and was hospitalized for further evaluation of their emergent condition. - New Patient This patient is new to me today: Yes Date on this admission: 07/30/18 - Critical Care Critical Care patient: Yes Total Critical Care Time (in minutes): 36 Critical Care Statement: The care of this patient involved high complexity decision making to prevent further life threatening deterioration of the patient 's condition and/or to evaluate & treat vital organ system(s) failure or risk of failure.
--- NOTE | 2018-07-30 16:15 | PN ---
Progress Note, Physician History of Present Illness: Events noted Transferred to ICU after cardiopulmonary arrest Hypotensive on pressors Intubated - Current Medication List Current Medications: Active Medications Acetylcysteine (Mucomyst 20 Oral / Inh Use Only*) 600 mg NEB RQID JULIO Last Admin: 07/30/18 11:28 Dose: 600 mg Albuterol Sulfate (Ventolin 0.083% Nebulizer Soln -) 1 amp NEB RQID JULIO Last Admin: 07/30/18 11:28 Dose: 1 amp Albuterol/Ipratropium (Duoneb -) 1 amp NEB RQID JULIO Chlorhexidine Gluconate (Hibiclens For Decolonization -) 1 applic TP HS JULIO Last Admin: 07/29/18 21:23 Dose: 1 applic Clobazam (Onfi -) 15 mg GT BID JULIO Diazepam (Valium -) 5 mg GT DAILY [facility] Fludrocortisone Acetate (Florinef -) 0.05 mg GT DAILY [facility] Last Admin: 07/30/18 13:30 Dose: 0.05 mg Heparin Sodium (Porcine) (Heparin -) 5,000 unit SQ TID [facility] Last Admin: 07/30/18 13:40 Dose: 5,000 unit Hydrocortisone Sodium Succinate (Solu-Cortef -) 50 mg IVPB Q6H [facility] Last Admin: 07/30/18 13:40 Dose: 50 mg Vasopressin 50 units/ Sodium (Chloride) 100 mls @ 4 mls/hr IVPB ASDIR [facility]; Protocol Last Titration: 07/30/18 04:30 Dose: 3 units/hr, 6 mls/hr Doxycycline Hyclate 100 mg/ (Dextrose) 100 mls @ 100 mls/hr IVPB BID [facility] Last Admin: 07/30/18 10:39 Dose: 100 mls/hr Dopamine HCl/Dextrose (Dopamine 400 Mg/D5w -) 400,000 mcg in 250 mls @ 9.611 mls/hr IVPB TITR [facility]; Protocol Last Titration: 07/30/18 05:10 Dose: 15 mcg/kg/min, 28.832 mls/hr Norepinephrine Bitartrate 8, (000 mcg/ Dextrose) 500 mls @ 18.75 mls/hr IV TITR [facility]; Protocol Last Admin: 07/30/18 11:00 Dose: 15 mcg/min, 56.25 mls/hr Piperacillin Sod/Tazobactam (Sod 3.375 gm/ Dextrose) 50 mls @ 100 mls/hr IVPB Q8H-IV JULIO; Protocol Lactulose (Cephulac (Oral Use)) 20 gm GT BID JULIO Lorazepam (Ativan Injection -) 1 mg IVPUSH Q6H PRN PRN Reason: seizures Mupirocin (Bactroban Ointment (For Decolonization) -) 1 applic NS BID JULIO Stop: 08/03/18 21:59 Last Admin: 07/30/18 13:29 Dose: Not Given Pantoprazole Sodium (Protonix Iv) 40 mg IVPUSH DAILY JULIO Simethicone (Mylicon Liquid -) 40 mg GT BID JULIO Topiramate (Topamax -) 100 mg GT BID JULIO - Objective Vital Signs: Vital Signs Temperature 97.7 F 07/30/18 13:28 Pulse Rate 82 07/30/18 14:00 Respiratory Rate 18 07/30/18 14:42 Blood Pressure 87/57 L 07/30/18 14:00 O2 Sat by Pulse Oximetry (%) 93 L 07/30/18 10:00 Constitutional: Yes: No Distress Cardiovascular: Yes: Regular Rate and Rhythm, S1, S2 Respiratory: Yes: Mechanically Ventilated Gastrointestinal: Yes: Normal Bowel Sounds, Soft Labs: CBC, BMP 07/30/18 13:15 07/30/18 13:15 INR, PTT INR 0.96 (0.83-1.09) 07/23/18 17:10 Assessment/Plan S/P cardiopulmonary arrest R/O septic shock Reculture Continue zosyn/ doxycycline Vancomycin x 1
[2018-07-30] MEDS ORDERED: VANCOMYCIN 1,000 MG in DEXTROSE 5%-WATER - 250 ML IVPB ONE (16:17)
[2018-07-30] MEDS ORDERED: VANCOMYCIN 1 GRAM (PRE-DOCKED) 1,000 MG/250 ML BAG IVPB ONE (16:30)
[2018-07-30] MEDS ORDERED: NOREPINEPHRINE BITARTRATE 4 MG/4 ML ML IV ONE (18:44)
[2018-07-30] MEDS ORDERED: PT OWN MED DRAWER 7, Y5N ONE (20:22)
[2018-07-30] MEDS: CHLORHEXIDINE GLUCONATE 4% CLEANSER FOR DECOLONIZATION TP SCH (21:11)
[2018-07-30] MEDS: VASOPRESSIN 50 UNITS in SODIUM CHLORIDE 97.5 ML IVPB SCH (21:13)
[2018-07-30] MEDS: DOPAMINE 400 MG/D5W - 400,000 MCG/250 ML INFUS.BAG IVPB SCH (23:30)
[2018-07-31] MEDS: HYDROCORTISONE SOD SUCCINATE 100 MG/2 ML VIAL IVPB SCH ×4 (01:45→17:57)
[2018-07-31] MEDS ORDERED: DEXTROSE 5%-WATER - 50 ML IVPB ONE ×3 (03:39→17:21)
[2018-07-31] MEDS ORDERED: PIPERACILLIN/TAZOBACTAM 3.375 GM VIAL IVPB ONE ×3 (03:39→17:21)
[2018-07-31] MEDS: PIPERACILLIN/TAZOB 3.375 GM 3.375 GM in DEXTROSE 5%-WATER - 50 ML IVPB SCH ×3 (04:10→17:27)
[2018-07-31] MEDS: NOREPINEPHRINE BITARTRATE 8,000 MCG in DEXTROSE 5%-WATER - 492 ML IV SCH (04:10)
[2018-07-31 06:03] LABS: BASO % 0.1 % (0-2.0); EOS % 0.1 % (0-4.5); HEMATOCRIT 35.9 % (35.4-49); HEMOGLOBIN 11.7 GM/dL (11.7-16.9); LYMPH % 8.4 % (8-40); MCHC 32.5 g/dl (32.0-35.9); MEAN CELL VOLUME 107.8 fl (80-96); MEAN PLT VOLUME 7.8 fl (7.5-11.1); MONO % 3.7 % (3.8-10.2); NEUT % 87.7 % (42.8-82.8); PLATELET COUNT 343 K/MM3 (134-434); RBC 3.33 M/mm3 (4.00-5.60); RDW 15.4 % (11.9-15.9)
[2018-07-31 06:23] LABS: ALBUMIN 1.8 g/dl (3.4-5.0); ALK PHOS 158 U/L (45-117); ANION GAP 8 MMOL/L (8-16); BILIRUBIN,TOTAL 0.2 mg/dL (0.2-1); BLOOD UREA NITROGEN 21 mg/dL (7-18); CALCIUM 7.7 mg/dL (8.5-10.1); CHLORIDE 119 mmol/L (98-107); CO2 18 mmol/L (21-32); CREATININE 1.1 mg/dL (0.55-1.3); GLUCOSE,RANDOM 251 mg/dL (74-106); MAGNESIUM 1.8 mg/dL (1.8-2.4); PHOSPHOROUS 2.7 mg/dL (2.5-4.9); POTASSIUM 4.3 mmol/L (3.5-5.1); SGOT/AST 110 U/L (15-37); SGPT/ALT 55 U/L (13-61); SODIUM 145 mmol/L (136-145); TOT PROT 5.3 g/dl (6.4-8.2)
[2018-07-31] MEDS: HEPARIN NA (PORCINE) 5,000 UNITS/ML 1ML VIAL SQ SCH ×3 (06:29→22:40)
[2018-07-31 07:57] LABS: ANISOCYTOSIS 0; MACROCYTOSIS 0; PLATELET ESTIMATE NORMAL
[2018-07-31] MEDS ORDERED: PT OWN MED DRAWER 7, Y5N ONE ×3 (08:19→21:12)
[2018-07-31] MEDS: ACETYLCYSTEINE 20% 200MG/ML 4 ML VIAL *FOR ORAL / INH USE ONLY NEB SCH ×4 (08:49→19:30)
[2018-07-31] MEDS: ALBUTEROL SO4 0.083% IH SOL 2.5 MG/3 ML VIAL.NEB. NEB SCH ×4 (08:50→19:30)
[2018-07-31] MEDS ORDERED: VASOPRESSIN 20 UNITS/ML VIAL IV ONE (09:35)
--- NOTE | 2018-07-31 09:36 | PN ---
Progress Note (short form) - Note Progress Note: Neurology Chief Complaint: Hypothermia History of Present Illness: This is a 28 y/o young man from the [place] with a PMHx of: Seizure Disorder, Microcephaly, Profound MR, Paraplegia, Scoliosis who presented to the ED for hypothermia and lethargy. Patient's restaurant server was at bedside reported that the patient was sent back from program because he looked ill appearing on day of admission. She reported that he felt cold and his temperature was in the low 90's on day of admission. On arrival to the ED patient was found to have a rectal temp of 90.1, P 48, R 20 BP 104/59 Jesus Alberto Hugger was placed core temp improved to 93.4. Chest Xray image- R-sided infiltrate. Started on Vancomycin and Zosyn for Aspiration Pneumonia. Bolus NS given in ER. Patient admitted to ICU for Septic Shock likely secondary to Aspiration Pneumonia. Rapid Flu Swab - negative for A+B Influenza. 07/29 patient with reported foaming at the mouth. On Onfi, valium, and topamax. Thereafter was noted to be pulseless after nurse went in to investigate BIPAP alarm. Pt was intubated and resuscitated Pt also hypotensive with SBP 60-70s. Remains on Vasopressin and and Norepi as seen below. Patient transferred to ICU. Remains on on Zosyn. Active Medications Acetylcysteine (Mucomyst 20 Oral / Inh Use Only*) 600 mg NEB RQID [facility] Last Admin: 07/31/18 08:49 Dose: 600 mg Albuterol Sulfate (Ventolin 0.083% Nebulizer Soln -) 1 amp NEB RQID [facility] Last Admin: 07/31/18 08:50 Dose: 1 amp Chlorhexidine Gluconate (Hibiclens For Decolonization -) 1 applic TP HS [facility] Last Admin: 07/30/18 21:11 Dose: 1 applic Clobazam (Onfi -) 15 mg GT BID [facility] Last Admin: 07/30/18 21:09 Dose: 15 mg Diazepam (Valium -) 5 mg GT DAILY [facility] Fludrocortisone Acetate (Florinef -) 0.05 mg GT DAILY [facility] Last Admin: 07/30/18 13:30 Dose: 0.05 mg Heparin Sodium (Porcine) (Heparin -) 5,000 unit SQ TID [facility] Last Admin: 07/31/18 06:29 Dose: 5,000 unit Hydrocortisone Sodium Succinate (Solu-Cortef -) 50 mg IVPB Q6H [facility] Last Admin: 07/31/18 06:29 Dose: 50 mg Vasopressin 50 units/ Sodium (Chloride) 100 mls @ 4 mls/hr IVPB ASDIR [facility]; Protocol Last Titration: 07/31/18 08:42 Dose: 3 units/hr, 6 mls/hr Doxycycline Hyclate 100 mg/ (Dextrose) 100 mls @ 100 mls/hr IVPB BID [facility] Last Admin: 07/30/18 21:12 Dose: 100 mls/hr Dopamine HCl/Dextrose (Dopamine 400 Mg/D5w -) 400,000 mcg in 250 mls @ 9.611 mls/hr IVPB TITR [facility]; Protocol Last Admin: 07/30/18 23:30 Dose: Not Given Norepinephrine Bitartrate 8, (000 mcg/ Dextrose) 500 mls @ 18.75 mls/hr IV TITR [facility]; Protocol Last Titration: 07/31/18 08:41 Dose: 11 mcg/min, 41.25 mls/hr Piperacillin Sod/Tazobactam (Sod 3.375 gm/ Dextrose) 50 mls @ 100 mls/hr IVPB Q8H-IV [facility]; Protocol Last Admin: 07/31/18 04:10 Dose: 100 mls/hr Lactulose (Cephulac (Oral Use)) 20 gm GT BID [facility] Last Admin: 07/30/18 21:11 Dose: Not Given Lorazepam (Ativan Injection -) 1 mg IVPUSH Q6H PRN PRN Reason: seizures Mupirocin (Bactroban Ointment (For Decolonization) -) 1 applic NS BID [facility] Stop: 08/03/18 21:59 Last Admin: 07/30/18 21:11 Dose: 1 applic Pantoprazole Sodium (Protonix Iv) 40 mg IVPUSH DAILY [facility] Simethicone (Mylicon Liquid -) 40 mg GT BID [facility] Last Admin: 07/30/18 21:10 Dose: 40 mg Topiramate (Topamax -) 100 mg GT BID [facility] Last Admin: 07/30/18 21:09 Dose: 100 mg Physical Examination Vital Signs Period Temp Pulse Resp BP Sys/Saha Pulse Ox Last 24 Hr 97.5 F-98.0 F 71-94 18-23 55-138/27-99 93-100 Constitutional: Yes: No Distress, Calm, Other (Unresponsive) Eyes: Yes: Conjunctiva Clear, PERRL HENT: Yes: Other (Microcephaly) Neck: Yes: WNL, Supple, Trachea Midline Cardiovascular: Yes: Regular Rate and Rhythm, S1, S2 Respiratory: Yes: Rhonchi (Coarse, throughout), Wheezes, Other (on NRB) Gastrointestinal: Yes: Soft, Distention, Hypoactive Bowel Sounds, Other (PEG- intact) Renal/: Yes: Incontinence Breast(s): Yes: WNL Edema: No Peripheral Pulses WNL: Yes Integumentary: Yes: Erythema (groin), Pressure Ulcer (Stage I Coccyx), Rash ( groin) Neurological: Not following commands, no abnormal movements noted Labs: CBCD WBC 24.0 K/mm3 (4.0-10.0) H 07/31/18 05:30 RBC 3.33 M/mm3 (4.00-5.60) L 07/31/18 05:30 Hgb 11.7 GM/dL (11.7-16.9) 07/31/18 05:30 Hct 35.9 % (35.4-49) 07/31/18 05:30 MCV 107.8 fl (80-96) H 07/31/18 05:30 MCHC 32.5 g/dl (32.0-35.9) 07/31/18 05:30 RDW 15.4 % (11.9-15.9) 07/31/18 05:30 Plt Count 343 K/MM3 (134-434) 07/31/18 05:30 MPV 7.8 fl (7.5-11.1) 07/31/18 05:30 CMP Sodium 145 mmol/L (136-145) 07/31/18 05:30 Potassium 4.3 mmol/L (3.5-5.1) 07/31/18 05:30 Chloride 119 mmol/L (98-107) H 07/31/18 05:30 Carbon Dioxide 18 mmol/L (21-32) L 07/31/18 05:30 Anion Gap 8 MMOL/L (8-16) 07/31/18 05:30 BUN 21 mg/dL (7-18) H 07/31/18 05:30 Creatinine 1.1 mg/dL (0.55-1.3) 07/31/18 05:30 Creat Clearance w eGFR > 60 (>60) 07/31/18 05:30 Random Glucose 251 mg/dL (74-106) H 07/31/18 05:30 Calcium 7.7 mg/dL (8.5-10.1) L 07/31/18 05:30 Total Bilirubin 0.2 mg/dL (0.2-1) 07/31/18 05:30 AST 110 U/L (15-37) H 07/31/18 05:30 ALT 55 U/L (13-61) 07/31/18 05:30 Alkaline Phosphatase 158 U/L (45-117) H 07/31/18 05:30 Total Protein 5.3 g/dl (6.4-8.2) L 07/31/18 05:30 Albumin 1.8 g/dl (3.4-5.0) L 07/31/18 05:30 CARDIAC ENZYMES Troponin I < 0.02 ng/ml (0.00-0.05) 07/23/18 17:10 Diagnostic CXRAY - completed Plan: This is a 28 y/o young man from the [place] with a PMHx of: Seizure Disorder, Microcephaly, Profound MR, Paraplegia, Scoliosis who presented to the ED for hypothermia and lethargy. Patient's restaurant server was at bedside reported that the patient was sent back from program because he looked ill appearing on day of admission. She reported that he felt cold and his temperature was in the low 90's on day of admission. On arrival to the ED patient was found to have a rectal temp of 90.1, P 48, R 20 BP 104/59 Jesus Alberto Hugger was placed core temp improved to 93.4 in ER. Chest Xray image- R-sided infiltrate. Started on Vancomycin and Zosyn for Aspiration Pneumonia. Bolus NS given in ER. Patient admitted to ICU for Septic Shock likely secondary to Aspiration Pneumonia.07/29 patient with reported foaming at the mouth. On Onfi, valium, and topamax. Thereafter was noted to be pulseless after nurse went in to investigate BIPAP alarm. Pt was intubated and resuscitated Pt also hypotensive with SBP 60-70s. Patient transferred to ICU. Pt was intubated and resuscitated Pt also hypotensive with SBP 60-70s. Remains on Vasopressin and and Norepi as seen below. Will continue monitoring for abnormal movements, discussed with nurse, no seizure like activity. Continue current regiment. Critical care time 35 mins.
[2018-07-31] MEDS: MUPIROCIN 2% TOPICAL OINTMENT FOR DECOLONIZATION NS SCH ×2 (09:55→22:39)
[2018-07-31 11:10] LABS: ARTERIAL BLD GAS O2 SATURATION 99.5 % (90-98.9); ARTERIAL BLOOD GAS BASE EXCESS -12.4 meq/l (-2-2); ARTERIAL BLOOD GAS PCO2 41.9 mmHg (35-45)
[2018-07-31 11:11] LABS: ALLENS TEST POSITIVE
[2018-07-31 11:30] LABS: ARTERIAL BLOOD GAS pH 7.18 (7.35-7.45)
[2018-07-31] MEDS: SIMETHICONE 40 MG/0.6 ML BOTTLE GT SCH ×2 (11:30→22:40)
[2018-07-31] MEDS: LACTULOSE 20 GM/30 ML UDC (FOR ORAL USE ONLY) GT SCH ×2 (11:30→22:30)
[2018-07-31] MEDS: PANTOPRAZOLE SODIUM 40 MG VIAL IVPUSH SCH (11:31)
[2018-07-31] MEDS: TOPIRAMATE 100 MG TABLET GT SCH ×2 (11:31→22:43)
[2018-07-31] MEDS: diazePAM 5 MG TABLET GT SCH (11:31)
[2018-07-31] MEDS: cloBAZam 10 MG TABLET GT SCH ×2 (11:32→22:42)
[2018-07-31] MEDS: DOXYCYCLINE INJECTION 100 MG in DEXTROSE 5%-WATER - 100 ML IVPB SCH ×2 (11:43→22:44)
[2018-07-31] MEDS: FLUDROCORTISONE ACETATE 0.1 MG TABLET (FP) GT SCH (12:26)
--- NOTE | 2018-07-31 13:13 | PN ---
Teaching Attending Note Name of Resident: Robina Trujillo ATTENDING PHYSICIAN STATEMENT I saw and evaluated the patient. I reviewed the resident's note and discussed the case with the resident. I agree with the resident's findings and plan as documented. SUBJECTIVE: Patient seen and examined in the ICU. Remains intubated on AC Mode of vent, 100 % FiO2. NE @ 15mcq and Vasopressin @ 4 units per hour for hemodynamic support. CXR: ETT in position / no gross change in bilateral infiltrates and possible left atelectasis. Intake & Output 07/28/18 07/29/18 07/30/18 07/31/18 23:59 23:59 23:59 23:59 Intake Total 1020 2500 9706.8 2241.6 Output Total 1350 2000 500 Balance 1020 1150 7706.8 1741.6 Weight 114 lb 2 oz 113 lb 136 lb 3.2 oz 135 lb 12.876 oz Last Vital Signs Temp Pulse Resp BP Pulse Ox 97.6 F 62 18 90/62 100 07/31/18 10:00 07/31/18 12:00 07/31/18 12:55 07/31/18 12:00 07/30/18 22:00 Active Medications Acetylcysteine (Mucomyst 20 Oral / Inh Use Only*) 600 mg NEB RQID [facility] Last Admin: 07/31/18 12:57 Dose: 600 mg Albuterol Sulfate (Ventolin 0.083% Nebulizer Soln -) 1 amp NEB RQID [facility] Last Admin: 07/31/18 12:57 Dose: 1 amp Chlorhexidine Gluconate (Hibiclens For Decolonization -) 1 applic TP HS [facility] Last Admin: 07/30/18 21:11 Dose: 1 applic Clobazam (Onfi -) 15 mg GT BID [facility] Last Admin: 07/31/18 11:32 Dose: 15 mg Diazepam (Valium -) 5 mg GT DAILY [facility] Last Admin: 07/31/18 11:31 Dose: 5 mg Fludrocortisone Acetate (Florinef -) 0.05 mg GT DAILY [facility] Last Admin: 07/31/18 12:26 Dose: 0.05 mg Heparin Sodium (Porcine) (Heparin -) 5,000 unit SQ TID [facility] Last Admin: 07/31/18 06:29 Dose: 5,000 unit Hydrocortisone Sodium Succinate (Solu-Cortef -) 50 mg IVPB Q6H [facility] Last Admin: 07/31/18 12:26 Dose: 50 mg Doxycycline Hyclate 100 mg/ (Dextrose) 100 mls @ 100 mls/hr IVPB BID [facility] Last Admin: 07/31/18 11:43 Dose: 100 mls/hr Dopamine HCl/Dextrose (Dopamine 400 Mg/D5w -) 400,000 mcg in 250 mls @ 9.611 mls/hr IVPB TITR [facility]; Protocol Last Admin: 07/30/18 23:30 Dose: Not Given Norepinephrine Bitartrate 8, (000 mcg/ Dextrose) 500 mls @ 18.75 mls/hr IV TITR [facility]; Protocol Last Titration: 07/31/18 08:41 Dose: 11 mcg/min, 41.25 mls/hr Piperacillin Sod/Tazobactam (Sod 3.375 gm/ Dextrose) 50 mls @ 100 mls/hr IVPB Q8H-IV [facility]; Protocol Last Admin: 07/31/18 11:32 Dose: 100 mls/hr Lactulose (Cephulac (Oral Use)) 20 gm GT BID [facility] Last Admin: 07/31/18 11:30 Dose: Not Given Lorazepam (Ativan Injection -) 1 mg IVPUSH Q6H PRN PRN Reason: seizures Mupirocin (Bactroban Ointment (For Decolonization) -) 1 applic NS BID [facility] Stop: 08/03/18 21:59 Last Admin: 07/30/18 21:11 Dose: 1 applic Pantoprazole Sodium (Protonix Iv) 40 mg IVPUSH DAILY [facility] Last Admin: 07/31/18 11:31 Dose: 40 mg Simethicone (Mylicon Liquid -) 40 mg GT BID [facility] Last Admin: 07/31/18 11:30 Dose: 40 mg Sodium Bicarbonate (Sodium Bicarbonate -) 650 mg PO TID [facility] Topiramate (Topamax -) 100 mg GT BID [facility] Last Admin: 07/31/18 11:31 Dose: 100 mg Constitutional: Yes: Intubated, poorly responsive Eyes: Yes: Conjunctiva Clear Cardiovascular: Yes: Bradycardia, S1, S2 Respiratory: Yes: Bilateral coarse Rhonchi Gastrointestinal: Yes: Normal Bowel Sounds, Soft, Other (surgical scar, PEG tube ) Extremities: Yes: Other (contracted LE) Edema: No Neurological: Yes: Poorly responsive Labs: Laboratory Results - last 24 hr 07/30/18 07/30/18 07/31/18 13:15 13:15 05:30 WBC 25.7 H 24.0 H RBC 3.62 L 3.33 L Hgb 12.5 11.7 Hct 39.0 35.9 MCV 107.8 H 107.8 H MCH 34.5 H 35.0 H MCHC 32.1 32.5 RDW 15.6 15.4 Plt Count 417 343 MPV 7.9 7.8 Absolute Neuts (auto) 22.2 H 21.1 H Neutrophils % 86.3 H D 87.7 H Neutrophils % (Manual) 63.3 D 87.2 H D Band Neutrophils % 18.4 4.9 Lymphocytes % 7.6 L D 8.4 Lymphocytes % (Manual) 7.1 L D 6.9 L Monocytes % 3.7 L 3.7 L Monocytes % (Manual) 3 L D 0 L D Eosinophils % 2.1 0.1 D Eosinophils % (Manual) 1.0 1.0 Basophils % 0.3 0.1 Basophils % (Manual) 0.0 0.0 Myelocytes % (Man) 0 0 Promyelocytes % (Man) 0 0 Blast Cells % (Manual) 0 0 Nucleated RBC % 0 0 Metamyelocytes 5 H 0 D Hypochromia 0 0 Platelet Estimate Normal Normal Polychromasia 0 0 Poikilocytosis 0 0 Anisocytosis 1+ 0 Microcytosis 0 0 Macrocytosis 1+ 0 Puncture Site ABG pH ABG pCO2 at Pt Temp ABG pO2 at Pt Temp ABG HCO3 ABG O2 Sat (Measured) ABG O2 Content ABG Base Excess Eliezer Test O2 Delivery Device Oxygen Flow Rate Vent Mode Vent Rate Mechanical Rate PEEP Pressure Support Vent Sodium 146 H Potassium 4.3 Chloride 122 H Carbon Dioxide 17 L Anion Gap 7 L BUN 25 H Creatinine 1.2 Creat Clearance w eGFR > 60 Random Glucose 175 H Calcium 7.1 L Phosphorus 3.3 Magnesium 1.5 L Total Bilirubin 0.3 AST 69 H ALT 51 Alkaline Phosphatase 147 H Total Protein 4.9 L Albumin 1.8 L 07/31/18 07/31/18 05:30 10:55 WBC RBC Hgb Hct MCV MCH MCHC RDW Plt Count MPV Absolute Neuts (auto) Neutrophils % Neutrophils % (Manual) Band Neutrophils % Lymphocytes % Lymphocytes % (Manual) Monocytes % Monocytes % (Manual) Eosinophils % Eosinophils % (Manual) Basophils % Basophils % (Manual) Myelocytes % (Man) Promyelocytes % (Man) Blast Cells % (Manual) Nucleated RBC % Metamyelocytes Hypochromia Platelet Estimate Polychromasia Poikilocytosis Anisocytosis Microcytosis Macrocytosis Puncture Site Right radial ABG pH 7.18 L* ABG pCO2 at Pt Temp 41.9 D ABG pO2 at Pt Temp 265.0 H* ABG HCO3 15.0 L ABG O2 Sat (Measured) 99.5 H ABG O2 Content 15.7 ABG Base Excess -12.4 L* Eliezer Test Positive O2 Delivery Device Vent Oxygen Flow Rate 100% Vent Mode A/c Vent Rate 18 Mechanical Rate Yes PEEP 7.0 Pressure Support Vent 280 Sodium 145 Potassium 4.3 Chloride 119 H Carbon Dioxide 18 L Anion Gap 8 BUN 21 H Creatinine 1.1 Creat Clearance w eGFR > 60 Random Glucose 251 H Calcium 7.7 L Phosphorus 2.7 Magnesium 1.8 Total Bilirubin 0.2 AST 110 H ALT 55 Alkaline Phosphatase 158 H Total Protein 5.3 L Albumin 1.8 L Assessment/Plan S/P CP arrest Probable ADELFO Shock: Likely multifactorial Severe MR Seizure D/O Wheelchair bound Chronic aspirations with suspected new episode of aspiration pneumonitis versus HCAP Breakthrough Seizures Hypothermia Metabolic Acidosis AC Mode of vent: wean FiO2 Follow ABG Add Sodium Bicarb Hydrocortisone / Fludrocortisone ABX per ID AEDs Can start enteral feeds Aspiration precautions Pressors to maintain MAP > 65 BD TX PRN GOC discussions with family / Olivia as his overall outcome appears grave Dr Brito Critical care time spent in reviewing chart, evaluating patient and formulating plan - 36 minutes.
--- NOTE | 2018-07-31 13:48 | PN ---
Physical Exam: SUBJECTIVE: Patient seen and examined this morning. No acute overnight events. Remains on NE and Vasopressin. OBJECTIVE: Vital Signs Period Temp Pulse Resp BP Sys/Saha Pulse Ox Last 24 Hr 97.5 F-98.0 F 62-88 18-23 82-138/57-99 100-100 GENERAL: Intubated, no withdrawal to painful stimuli HEAD: Microcephaly, NCAT EYES: Pupils nonreactive, fixed ENT: Moist mucous membranes. NECK: Supple LUNGS: Mechanical breath sounds, not breathing above the vent HEART: Regular rate and rhythm, S1, S2 without murmur ABDOMEN: Soft, nontender, nondistended, + bowel sounds EXTREMITIES: 2+ pulses, Limbs contracted, no edema. NEUROLOGICAL: Poorly responsive SKIN: Warm, dry Laboratory Results - last 24 hr 07/30/18 07/30/18 07/31/18 13:15 13:15 05:30 WBC 25.7 H 24.0 H RBC 3.62 L 3.33 L Hgb 12.5 11.7 Hct 39.0 35.9 MCV 107.8 H 107.8 H MCH 34.5 H 35.0 H MCHC 32.1 32.5 RDW 15.6 15.4 Plt Count 417 343 MPV 7.9 7.8 Absolute Neuts (auto) 22.2 H 21.1 H Neutrophils % 86.3 H D 87.7 H Neutrophils % (Manual) 63.3 D 87.2 H D Band Neutrophils % 18.4 4.9 Lymphocytes % 7.6 L D 8.4 Lymphocytes % (Manual) 7.1 L D 6.9 L Monocytes % 3.7 L 3.7 L Monocytes % (Manual) 3 L D 0 L D Eosinophils % 2.1 0.1 D Eosinophils % (Manual) 1.0 1.0 Basophils % 0.3 0.1 Basophils % (Manual) 0.0 0.0 Myelocytes % (Man) 0 0 Promyelocytes % (Man) 0 0 Blast Cells % (Manual) 0 0 Nucleated RBC % 0 0 Metamyelocytes 5 H 0 D Hypochromia 0 0 Platelet Estimate Normal Normal Polychromasia 0 0 Poikilocytosis 0 0 Anisocytosis 1+ 0 Microcytosis 0 0 Macrocytosis 1+ 0 Puncture Site ABG pH ABG pCO2 at Pt Temp ABG pO2 at Pt Temp ABG HCO3 ABG O2 Sat (Measured) ABG O2 Content ABG Base Excess Eliezer Test O2 Delivery Device Oxygen Flow Rate Vent Mode Vent Rate Mechanical Rate PEEP Pressure Support Vent Sodium 146 H Potassium 4.3 Chloride 122 H Carbon Dioxide 17 L Anion Gap 7 L BUN 25 H Creatinine 1.2 Creat Clearance w eGFR > 60 Random Glucose 175 H Calcium 7.1 L Phosphorus 3.3 Magnesium 1.5 L Total Bilirubin 0.3 AST 69 H ALT 51 Alkaline Phosphatase 147 H Total Protein 4.9 L Albumin 1.8 L 07/31/18 07/31/18 05:30 10:55 WBC RBC Hgb Hct MCV MCH MCHC RDW Plt Count MPV Absolute Neuts (auto) Neutrophils % Neutrophils % (Manual) Band Neutrophils % Lymphocytes % Lymphocytes % (Manual) Monocytes % Monocytes % (Manual) Eosinophils % Eosinophils % (Manual) Basophils % Basophils % (Manual) Myelocytes % (Man) Promyelocytes % (Man) Blast Cells % (Manual) Nucleated RBC % Metamyelocytes Hypochromia Platelet Estimate Polychromasia Poikilocytosis Anisocytosis Microcytosis Macrocytosis Puncture Site Right radial ABG pH 7.18 L* ABG pCO2 at Pt Temp 41.9 D ABG pO2 at Pt Temp 265.0 H* ABG HCO3 15.0 L ABG O2 Sat (Measured) 99.5 H ABG O2 Content 15.7 ABG Base Excess -12.4 L* Eliezer Test Positive O2 Delivery Device Vent Oxygen Flow Rate 100% Vent Mode A/c Vent Rate 18 Mechanical Rate Yes PEEP 7.0 Pressure Support Vent 280 Sodium 145 Potassium 4.3 Chloride 119 H Carbon Dioxide 18 L Anion Gap 8 BUN 21 H Creatinine 1.1 Creat Clearance w eGFR > 60 Random Glucose 251 H Calcium 7.7 L Phosphorus 2.7 Magnesium 1.8 Total Bilirubin 0.2 AST 110 H ALT 55 Alkaline Phosphatase 158 H Total Protein 5.3 L Albumin 1.8 L Microbiology 07/29/18 18:30 Sputum - Endotrachea Suction/Ventilator Gram Stain - Final 07/29/18 18:30 Sputum - Endotrachea Suction/Ventilator Sputum Culture - Preliminary Diphtheroid/Corynebacterium 07/29/18 18:30 Urine - Urine Bates Urine Culture - Final NO GROWTH OBTAINED 07/25/18 13:36 Nasopharyngeal Swab Respiratory Virus (PCR) - Final 07/23/18 17:10 Blood - Peripheral Venous Blood Culture - Final NO GROWTH AFTER 5 DAYS INCUBATION 07/23/18 17:10 Blood - Peripheral Venous Blood Culture - Final NO GROWTH AFTER 5 DAYS INCUBATION 07/24/18 09:49 Urine - Urine Bates Legionella Antigen - Final 07/24/18 09:49 Urine - Urine Bates Streptococcus pneumoniae Antigen (M - Final 07/24/18 17:10 Sputum - Expectorated Gram Stain - Final 07/24/18 17:10 Sputum - Expectorated Sputum Culture - Final NORMAL RESPIRATORY KRISTIAN 07/23/18 17:51 Urine - Urine - Catheterized Urine Culture - Final Morganella Morganii Escherichia Coli Active Medications Acetylcysteine (Mucomyst 20 Oral / Inh Use Only*) 600 mg NEB RQID [facility] Last Admin: 07/31/18 12:57 Dose: 600 mg Albuterol Sulfate (Ventolin 0.083% Nebulizer Soln -) 1 amp NEB RQID [facility] Last Admin: 07/31/18 12:57 Dose: 1 amp Chlorhexidine Gluconate (Hibiclens For Decolonization -) 1 applic TP HS [facility] Last Admin: 07/30/18 21:11 Dose: 1 applic Clobazam (Onfi -) 15 mg GT BID [facility] Last Admin: 07/31/18 11:32 Dose: 15 mg Diazepam (Valium -) 5 mg GT DAILY [facility] Last Admin: 07/31/18 11:31 Dose: 5 mg Fludrocortisone Acetate (Florinef -) 0.05 mg GT DAILY [facility] Last Admin: 07/31/18 12:26 Dose: 0.05 mg Heparin Sodium (Porcine) (Heparin -) 5,000 unit SQ TID [facility] Last Admin: 07/31/18 06:29 Dose: 5,000 unit Hydrocortisone Sodium Succinate (Solu-Cortef -) 50 mg IVPB Q6H [facility] Last Admin: 07/31/18 12:26 Dose: 50 mg Doxycycline Hyclate 100 mg/ (Dextrose) 100 mls @ 100 mls/hr IVPB BID [facility] Last Admin: 07/31/18 11:43 Dose: 100 mls/hr Dopamine HCl/Dextrose (Dopamine 400 Mg/D5w -) 400,000 mcg in 250 mls @ 9.611 mls/hr IVPB TITR [facility]; Protocol Last Admin: 07/30/18 23:30 Dose: Not Given Norepinephrine Bitartrate 8, (000 mcg/ Dextrose) 500 mls @ 18.75 mls/hr IV TITR [facility]; Protocol Last Titration: 07/31/18 08:41 Dose: 11 mcg/min, 41.25 mls/hr Piperacillin Sod/Tazobactam (Sod 3.375 gm/ Dextrose) 50 mls @ 100 mls/hr IVPB Q8H-IV [facility]; Protocol Last Admin: 07/31/18 11:32 Dose: 100 mls/hr Lactulose (Cephulac (Oral Use)) 20 gm GT BID [facility] Last Admin: 07/31/18 11:30 Dose: Not Given Lorazepam (Ativan Injection -) 1 mg IVPUSH Q6H PRN PRN Reason: seizures Mupirocin (Bactroban Ointment (For Decolonization) -) 1 applic NS BID [facility] Stop: 08/03/18 21:59 Last Admin: 07/30/18 21:11 Dose: 1 applic Pantoprazole Sodium (Protonix Iv) 40 mg IVPUSH DAILY [facility] Last Admin: 07/31/18 11:31 Dose: 40 mg Simethicone (Mylicon Liquid -) 40 mg GT BID [facility] Last Admin: 07/31/18 11:30 Dose: 40 mg Sodium Bicarbonate (Sodium Bicarbonate -) 650 mg PO TID [facility] Topiramate (Topamax -) 100 mg GT BID [facility] Last Admin: 07/31/18 11:31 Dose: 100 mg ASSESSMENT/PLAN: 28 [facility] with a PMHx of Seizure Disorder, Microcephaly, Profound MR, Paraplegia, Scoliosis presented to the ED with severe sepsis was transferred to the ICU after a Code 99 was called (07/29/18) for PEA s/p intubation #ID Septic Shock Hypothermia -Likely multifactorial, in part due to aspiration pneumonia -Hypothermic, Hypotensive on arrival in ICU; Improved since however remains Labile -Currently on Norepinephrine, Dopamine -D/C Vasopressin -Blood cx NGTD -Sputum cx: Diphtheroid/Corynebacterium -RSV Swab, urine antigen for Strep/legionella negative -Urine cx + for Morganelle Morgani, E. Coli -CXR shows some possible atelectasis -No longer on Jesus Alberto serrato -ID (Dr. Bauer) consulted -Continue Hydrocortisone 50 q6H, Fludrocortisone 0.05 Daily -Palliative care consulted #Cardiovascular S/P Cardiac arrest -Patient does not have a cardiac history -Troponin < 0.02 -ECHO: LV Systolic function is mildly reduced, mild global hypokinesis of the LV Hypotension due to Septic Shock -S/P 2L Fluid resuscitation -Pressures remain Labile, Continue Norepinephrine, Dopamine #Pulmonary Septic shock likely due to Aspiration Pneumonia -Continue Zosyn, Doxycycline -Intubated, Vent settings 18/280/100%/+7 #Neuro Hx of Seizure disorder, Severe MR Possibly ADELFO -Continue Onfi, Valium, and Topamax -Ativan PRN -Monitor for breakthrough seizure -Neurology (Dr. Escobedo) Consulted, appreciate rec's #PPx -DVT: Heparin TID -GI: Protonix 40 Daily #FEN -No standing fluids -Replete Mag -NPO Dispo: Continue to monitor in ICU, Goals of care discussion with family as he likely has poor prognosis Visit type - Emergency Visit Emergency Visit: Yes ED Registration Date: 07/23/18 Care time: The patient presented to the Emergency Department on the above date and was hospitalized for further evaluation of their emergent condition. - New Patient This patient is new to me today: Yes Date on this admission: 07/31/18 - Critical Care Critical Care patient: Yes Total Critical Care Time (in minutes): 36 Critical Care Statement: The care of this patient involved high complexity decision making to prevent further life threatening deterioration of the patient 's condition and/or to evaluate & treat vital organ system(s) failure or risk of failure.
[2018-07-31] MEDS: SODIUM BICARBONATE 650 MG TABLET PO SCH ×2 (15:00→22:43)
[2018-07-31 15:02] VITALS: BMI 32.5
--- NOTE | 2018-07-31 17:48 | PN ---
Physical Exam: SUBJECTIVE: Patient seen and examined OBJECTIVE: Vital Signs Period Temp Pulse Resp BP Sys/Saha Pulse Ox Last 24 Hr 97.5 F-98.0 F 62-80 18-23 82-138/62-99 100-100 GENERAL: intubated and on vent at this time. has no withdrawal to pain CVS:S1S2 LUNG: Vent sounds Abd:BS+ , NT/ND Laboratory Results - last 24 hr 07/31/18 07/31/18 07/31/18 05:30 05:30 10:55 WBC 24.0 H RBC 3.33 L Hgb 11.7 Hct 35.9 MCV 107.8 H MCH 35.0 H MCHC 32.5 RDW 15.4 Plt Count 343 MPV 7.8 Absolute Neuts (auto) 21.1 H Neutrophils % 87.7 H Neutrophils % (Manual) 87.2 H D Band Neutrophils % 4.9 Lymphocytes % 8.4 Lymphocytes % (Manual) 6.9 L Monocytes % 3.7 L Monocytes % (Manual) 0 L D Eosinophils % 0.1 D Eosinophils % (Manual) 1.0 Basophils % 0.1 Basophils % (Manual) 0.0 Myelocytes % (Man) 0 Promyelocytes % (Man) 0 Blast Cells % (Manual) 0 Nucleated RBC % 0 Metamyelocytes 0 D Hypochromia 0 Platelet Estimate Normal Polychromasia 0 Poikilocytosis 0 Anisocytosis 0 Microcytosis 0 Macrocytosis 0 Puncture Site Right radial ABG pH 7.18 L* ABG pCO2 at Pt Temp 41.9 D ABG pO2 at Pt Temp 265.0 H* ABG HCO3 15.0 L ABG O2 Sat (Measured) 99.5 H ABG O2 Content 15.7 ABG Base Excess -12.4 L* Eliezer Test Positive O2 Delivery Device Vent Oxygen Flow Rate 100% Vent Mode A/c Vent Rate 18 Mechanical Rate Yes PEEP 7.0 Pressure Support Vent 280 Sodium 145 Potassium 4.3 Chloride 119 H Carbon Dioxide 18 L Anion Gap 8 BUN 21 H Creatinine 1.1 Creat Clearance w eGFR > 60 Random Glucose 251 H Calcium 7.7 L Phosphorus 2.7 Magnesium 1.8 Total Bilirubin 0.2 AST 110 H ALT 55 Alkaline Phosphatase 158 H Total Protein 5.3 L Albumin 1.8 L Active Medications Generic Name Dose Route Start Last Admin Trade Name Freq PRN Reason Stop Dose Admin Acetylcysteine 600 mg 07/29/18 20:00 07/31/18 16:30 Mucomyst 20 Oral / Inh Use Only* NEB 600 mg RQID JULIO Administration Albuterol Sulfate 1 amp 07/29/18 20:00 07/31/18 16:30 Ventolin 0.083% Nebulizer Soln - NEB 1 amp RQID JULIO Administration Chlorhexidine Gluconate 1 applic 07/29/18 22:00 07/30/18 21:11 Hibiclens For Decolonization - TP 1 applic HS JULIO Administration Clobazam 15 mg 07/30/18 22:00 07/31/18 11:32 Onfi - GT 15 mg BID JULIO Administration Diazepam 5 mg 07/31/18 10:00 07/31/18 11:31 Valium - GT 5 mg DAILY JULIO Administration Fludrocortisone Acetate 0.05 mg 07/30/18 12:00 07/31/18 12:26 Florinef - GT 0.05 mg DAILY JULIO Administration Heparin Sodium (Porcine) 5,000 unit 07/30/18 14:00 07/31/18 15:00 Heparin - SQ 5,000 unit TID JULIO Administration Hydrocortisone Sodium Succinate 50 mg 07/30/18 12:30 07/31/18 12:26 Solu-Cortef - IVPB 50 mg Q6H JULIO Administration Doxycycline Hyclate 100 mg/ 100 mls @ 100 mls/hr 07/29/18 22:00 07/31/18 11: 43 Dextrose IVPB 100 mls/hr BID JULIO Administration Dopamine HCl/Dextrose 400,000 mcg in 250 mls @ 9.611 mls/hr 07/29/18 23:00 23:30 Dopamine 400 Mg/D5w - IVPB Not Given TITR JULIO Protocol 5 MCG/KG/MIN Norepinephrine Bitartrate 8, 500 mls @ 18.75 mls/hr 07/30/18 01:30 07/31/18 08:41 000 mcg/ Dextrose IV 11 mcg/min TITR JULIO 41.25 mls/hr Titration Protocol 5 MCG/MIN Piperacillin Sod/Tazobactam 50 mls @ 100 mls/hr 07/30/18 18:00 07/31/18 11:32 Sod 3.375 gm/ Dextrose IVPB 100 mls/hr Q8H-IV JULIO Administration Protocol Lactulose 20 gm 07/30/18 22:00 07/31/18 11:30 Cephulac (Oral Use) GT Not Given BID JULIO Lorazepam 1 mg 07/30/18 12:33 Ativan Injection - IVPUSH Q6H PRN seizures Mupirocin 1 applic 07/29/18 22:00 07/30/18 21:11 Bactroban Ointment (For Decolonization) - NS 08/03/18 21:59 1 applic BID JULIO Administration Pantoprazole Sodium 40 mg 07/31/18 10:00 07/31/18 11:31 Protonix Iv IVPUSH 40 mg DAILY JULIO Administration Simethicone 40 mg 07/30/18 22:00 07/31/18 11:30 Mylicon Liquid - GT 40 mg BID JULIO Administration Sodium Bicarbonate 650 mg 07/31/18 14:00 07/31/18 15:00 Sodium Bicarbonate - PO 650 mg TID JULIO Administration Topiramate 100 mg 07/30/18 22:00 07/31/18 11:31 Topamax - GT 100 mg BID JULIO Administration ASSESSMENT/PLAN: 28 y/o M from the [facility] with a PMHx of: Seizure Disorder, Microcephaly, Profound MR, Paraplegia, Scoliosis initially p/w Septic shock likely due to aspiration PNA and patient was while on BIPAP patient was found to be foaming and pulseless was intubated and resuscitated and was transferred to the ICU. Remains on Vasopressin and Norepi. at this time he is still on vent and vasopressin ad there is concern for ADELFO. Septic Shock -Likely multifactorial, in part due to aspiration pneumonia -Currently on Norepinephrine, Dopamine -D/C Vasopressin -Blood cx NGTD -Sputum cx: Diphtheroid/Corynebacterium -RSV Swab, urine antigen for Strep/legionella negative -Urine cx + for Morganelle Morgani, E. Coli -CXR shows some possible atelectasis -No longer on Jesus Alberto serrato -ID (Dr. Bauer) consulted -Continue Hydrocortisone 50 q6H, Fludrocortisone 0.05 Daily -Palliative care consulted #Cardiovascular S/P Cardiac arrest -Patient does not have a cardiac history -Troponin < 0.02 -ECHO: LV Systolic function is mildly reduced, mild global hypokinesis of the LV #Pulmonary Septic shock likely due to Aspiration Pneumonia -Continue Zosyn, Doxycycline -Intubated, Vent settings 18/280/100%/+7 #Neuro Hx of Seizure disorder, Severe MR Possibly ADELFO -Continue Onfi, Valium, and Topamax -Ativan PRN -Monitor for breakthrough seizure -Neurology (Dr. Escobedo) Consulted, appreciate rec's #PPx -DVT: Heparin TID -GI: Protonix 40 Daily #FEN -No standing fluids -Replete Mag -NPO Visit type - Emergency Visit Emergency Visit: No - New Patient This patient is new to me today: No - Critical Care Critical Care patient: No - Discharge Referral Referred to [facility] Med [facility] No
[2018-07-31] MEDS ORDERED: NOREPINEPHRINE BITARTRATE 4 MG/4 ML ML IV ONE (20:19)
[2018-07-31] MEDS: CHLORHEXIDINE GLUCONATE 4% CLEANSER FOR DECOLONIZATION TP SCH (22:40)
[2018-07-31] MEDS: DOPAMINE 400 MG/D5W - 400,000 MCG/250 ML INFUS.BAG IVPB SCH (23:30)
[2018-08-01] MEDS ORDERED: SODIUM CHLORIDE 500 ML IV STA (00:38)
--- NOTE | 2018-08-01 00:42 | PN ---
Progress Note (short form) - Note Progress Note: pt needed to be evaluated for brain by Neurologist and start brain protocol Following labs are ordered per [facility] cord[facility] Lauren salas request A1c Direct Bili Lipase Amylase CPK CXR Trop urine tox Mg, P
[2018-08-01] MEDS ORDERED: DEXTROSE 5%-WATER - 50 ML IVPB ONE ×3 (01:25→14:29)
[2018-08-01] MEDS ORDERED: PIPERACILLIN/TAZOBACTAM 3.375 GM VIAL IVPB ONE ×3 (01:25→14:29)
[2018-08-01] MEDS: PIPERACILLIN/TAZOB 3.375 GM 3.375 GM in DEXTROSE 5%-WATER - 50 ML IVPB SCH ×3 (01:35→17:14)
[2018-08-01] MEDS: HYDROCORTISONE SOD SUCCINATE 100 MG/2 ML VIAL IVPB SCH ×4 (01:35→17:31)
[2018-08-01] MEDS: SODIUM CHLORIDE 0.45% 1,000 ML IV SCH (01:38)
[2018-08-01 05:56] LABS: ARTERIAL BLD GAS O2 SATURATION 98.7 % (90-98.9); ARTERIAL BLOOD GAS BASE EXCESS -11.2 meq/l (-2-2); ARTERIAL BLOOD GAS PCO2 39.1 mmHg (35-45); ARTERIAL BLOOD GAS pH 7.22 (7.35-7.45)
[2018-08-01 05:57] LABS: ALLENS TEST POSITIVE
[2018-08-01 06:08] LABS: BASO % 0.2 % (0-2.0); HEMATOCRIT 34.4 % (35.4-49); HEMOGLOBIN 11.1 GM/dL (11.7-16.9); LYMPH % 4.8 % (8-40); MCH 34.1 pg (25.7-33.7); MCHC 32.1 g/dl (32.0-35.9); MEAN CELL VOLUME 106.1 fl (80-96); MEAN PLT VOLUME 8.1 fl (7.5-11.1); MONO % 4.4 % (3.8-10.2); NEUT % 90.6 % (42.8-82.8); PLATELET COUNT 359 K/MM3 (134-434); RBC 3.24 M/mm3 (4.00-5.60); RDW 14.8 % (11.9-15.9)
[2018-08-01 06:28] LABS: BILIRUBIN,DIRECT 0.1 mg/dL (0.0-0.2)
[2018-08-01 06:29] LABS: ALBUMIN 1.8 g/dl (3.4-5.0); ALK PHOS 163 U/L (45-117); ANION GAP 8 MMOL/L (8-16); BILIRUBIN,TOTAL 0.3 mg/dL (0.2-1); BLOOD UREA NITROGEN 21 mg/dL (7-18); CALCIUM 8.5 mg/dL (8.5-10.1); CHLORIDE 121 mmol/L (98-107); CO2 19 mmol/L (21-32); CREATININE 1.2 mg/dL (0.55-1.3); GLUCOSE,RANDOM 160 mg/dL (74-106); MAGNESIUM 1.9 mg/dL (1.8-2.4); PHOSPHOROUS 3.1 mg/dL (2.5-4.9); POTASSIUM 3.6 mmol/L (3.5-5.1); SGOT/AST 117 U/L (15-37); SGPT/ALT 53 U/L (13-61); SODIUM 147 mmol/L (136-145); TOT PROT 5.3 g/dl (6.4-8.2)
[2018-08-01] MEDS: HEPARIN NA (PORCINE) 5,000 UNITS/ML 1ML VIAL SQ SCH ×3 (06:39→22:17)
[2018-08-01] MEDS: SODIUM BICARBONATE 650 MG TABLET PO SCH ×3 (06:39→22:19)
[2018-08-01] MEDS ORDERED: PT OWN MED DRAWER 7, Y5N ONE ×2 (08:13→22:25)
[2018-08-01] MEDS: ACETYLCYSTEINE 20% 200MG/ML 4 ML VIAL *FOR ORAL / INH USE ONLY NEB SCH ×4 (08:40→20:40)
[2018-08-01] MEDS: ALBUTEROL SO4 0.083% IH SOL 2.5 MG/3 ML VIAL.NEB. NEB SCH ×4 (08:40→20:40)
[2018-08-01 08:48] LABS: COCAINE, UR NEGATIVE ng/ml (CUTOFF=300); METHADONE, UR NEGATIVE ng/ml (CUTOFF=300); OPIATES, URI NEGATIVE ng/ml (CUTOFF=300); PHENCYCLIDINE,URINE NEGATIVE ng/ml (CUTOFF=25); URINE AMPHETAMINES NEGATIVE ng/ml (CUTOFF=500); URINE APPEARANCE SLCLOUDY; URINE BARBITURATES NEGATIVE ng/ml (CUTOFF=200); URINE BILIRUBIN NEGATIVE (<2.0 mg/dL); URINE COLOR STRAW; URINE GLUCOSE (UA) NEGATIVE (NEGATIVE); URINE KETONE NEGATIVE (NEGATIVE); URINE LEUK ESTERASE 2+ (NEGATIVE); URINE NITRITE NEGATIVE (NEGATIVE); URINE PROTEIN NEGATIVE (NEGATIVE); URINE UROBILINOGEN NEGATIVE mg/dL (0.2-1.0)
[2018-08-01 09:02] LABS: URINE BACTERIA RARE /hpf (NONE SEEN); YEAST FEW
[2018-08-01] MEDS: FLUDROCORTISONE ACETATE 0.1 MG TABLET (FP) GT SCH (09:16)
[2018-08-01] MEDS: MUPIROCIN 2% TOPICAL OINTMENT FOR DECOLONIZATION NS SCH ×2 (09:16→22:17)
[2018-08-01] MEDS: LACTULOSE 20 GM/30 ML UDC (FOR ORAL USE ONLY) GT SCH ×2 (09:16→22:17)
[2018-08-01] MEDS: diazePAM 5 MG TABLET GT SCH (09:17)
[2018-08-01] MEDS: TOPIRAMATE 100 MG TABLET GT SCH ×2 (09:17→22:27)
[2018-08-01] MEDS: DOXYCYCLINE INJECTION 100 MG in DEXTROSE 5%-WATER - 100 ML IVPB SCH ×2 (09:18→22:27)
[2018-08-01] MEDS: SIMETHICONE 40 MG/0.6 ML BOTTLE GT SCH ×2 (09:19→22:18)
[2018-08-01] MEDS: cloBAZam 10 MG TABLET GT SCH ×2 (09:19→22:18)
[2018-08-01] MEDS: PANTOPRAZOLE SODIUM 40 MG VIAL IVPUSH SCH (09:19)
[2018-08-01 09:26] LABS: URINE BENZODIAZEPINES POSITIVE ng/ml (CUTOFF=200)
[2018-08-01 09:27] LABS: ANISOCYTOSIS 1+; MACROCYTOSIS 1+; PLATELET ESTIMATE NORMAL
--- NOTE | 2018-08-01 10:47 | PN ---
Progress Note, Physician History of Present Illness: Unresponsive on ventilator Hypothermic Hypotensive on pressors - Current Medication List Current Medications: Active Medications Acetylcysteine (Mucomyst 20 Oral / Inh Use Only*) 600 mg NEB RQID [facility] Last Admin: 08/01/18 08:40 Dose: 600 mg Albuterol Sulfate (Ventolin 0.083% Nebulizer Soln -) 1 amp NEB RQID JULIO Last Admin: 08/01/18 08:40 Dose: 1 amp Chlorhexidine Gluconate (Hibiclens For Decolonization -) 1 applic TP HS [facility] Last Admin: 07/31/18 22:40 Dose: 1 applic Clobazam (Onfi -) 15 mg GT BID [facility] Last Admin: 08/01/18 09:19 Dose: 15 mg Diazepam (Valium -) 5 mg GT DAILY [facility] Last Admin: 08/01/18 09:17 Dose: 5 mg Fludrocortisone Acetate (Florinef -) 0.05 mg GT DAILY [facility] Last Admin: 08/01/18 09:16 Dose: 0.05 mg Heparin Sodium (Porcine) (Heparin -) 5,000 unit SQ TID [facility] Last Admin: 08/01/18 06:39 Dose: 5,000 unit Hydrocortisone Sodium Succinate (Solu-Cortef -) 50 mg IVPB Q6H [facility] Last Admin: 08/01/18 06:39 Dose: 50 mg Doxycycline Hyclate 100 mg/ (Dextrose) 100 mls @ 100 mls/hr IVPB BID [facility] Last Admin: 08/01/18 09:18 Dose: 100 mls/hr Dopamine HCl/Dextrose (Dopamine 400 Mg/D5w -) 400,000 mcg in 250 mls @ 9.611 mls/hr IVPB TITR [facility]; Protocol Last Admin: 07/31/18 23:30 Dose: Not Given Norepinephrine Bitartrate 8, (000 mcg/ Dextrose) 500 mls @ 18.75 mls/hr IV TITR [facility]; Protocol Last Titration: 08/01/18 10:44 Dose: 20 mcg/min, 75 mls/hr Piperacillin Sod/Tazobactam (Sod 3.375 gm/ Dextrose) 50 mls @ 100 mls/hr IVPB Q8H-IV JULIO; Protocol Last Admin: 08/01/18 09:18 Dose: 100 mls/hr Sodium Chloride (1/2 Normal Saline) 1,000 mls @ 75 mls/hr IV ASDIR [facility] Last Admin: 08/01/18 01:38 Dose: 75 mls/hr Lactulose (Cephulac (Oral Use)) 20 gm GT BID [facility] Last Admin: 08/01/18 09:16 Dose: 20 gm Lorazepam (Ativan Injection -) 1 mg IVPUSH Q6H PRN PRN Reason: seizures Mupirocin (Bactroban Ointment (For Decolonization) -) 1 applic NS BID [facility] Stop: 08/03/18 21:59 Last Admin: 08/01/18 09:16 Dose: 1 applic Pantoprazole Sodium (Protonix Iv) 40 mg IVPUSH DAILY [facility] Last Admin: 08/01/18 09:19 Dose: 40 mg Simethicone (Mylicon Liquid -) 40 mg GT BID [facility] Last Admin: 08/01/18 09:19 Dose: 40 mg Sodium Bicarbonate (Sodium Bicarbonate -) 650 mg PO TID [facility] Last Admin: 08/01/18 06:39 Dose: 650 mg Topiramate (Topamax -) 100 mg GT BID [facility] Last Admin: 08/01/18 09:17 Dose: 100 mg - Objective Vital Signs: Vital Signs Temperature 99 F 08/01/18 07:00 Pulse Rate 102 H 08/01/18 10:44 Respiratory Rate 18 08/01/18 10:33 Blood Pressure 126/61 08/01/18 10:44 O2 Sat by Pulse Oximetry (%) 98 08/01/18 08:05 Constitutional: Yes: No Distress Eyes: Yes: Conjunctiva Clear Cardiovascular: Yes: Regular Rate and Rhythm, S1, S2 Respiratory: Yes: Mechanically Ventilated Gastrointestinal: Yes: Normal Bowel Sounds, Soft. No: Tenderness Edema: LLE: Trace, RLE: Trace Labs: CBC, BMP 08/01/18 05:30 08/01/18 05:30 INR, PTT INR 0.96 (0.83-1.09) 07/23/18 17:10 Assessment/Plan S/P cardiopulmonary arrest R/O septic shock Continue zosyn/ doxycycline Hemodynamic/ ventilatory support prognosis poor
--- NOTE | 2018-08-01 11:24 | PN ---
Physical Exam: SUBJECTIVE: Patient seen and examined at bedside. No overnight events. continues intubated. Off sedation, continues to require pressors for BP support. OBJECTIVE: Vital Signs Period Temp Pulse Resp BP Sys/Saha Pulse Ox Last 24 Hr 92.3 F-99.5 F 56-108 16-19 87-131/50-86 98-100 GENERAL: The patient is awake, alert, and fully oriented, in no acute distress. GENERAL: Intubated, no withdrawal to painful stimuli HEAD: Microcephaly, NCAT EYES: Pupils nonreactive, fixed ENT: Moist mucous membranes. NECK: Supple LUNGS: Mechanical breath sounds, not breathing above the vent HEART: RRR, S1, S2 without murmur ABDOMEN: Soft,NTND, + bowel sounds EXTREMITIES: 2+ pulses, Limbs contracted, no edema. NEUROLOGICAL: absent pupillary reflex. no withdrawal from pain stumuli. SKIN: Warm, dry Laboratory Results - last 24 hr 07/30/18 07/30/18 07/31/18 06:01 06:18 10:55 WBC RBC Hgb Hct MCV MCH MCHC RDW Plt Count MPV Absolute Neuts (auto) Neutrophils % Neutrophils % (Manual) Band Neutrophils % Lymphocytes % Lymphocytes % (Manual) Monocytes % Monocytes % (Manual) Eosinophils % Eosinophils % (Manual) Basophils % Basophils % (Manual) Myelocytes % (Man) Promyelocytes % (Man) Blast Cells % (Manual) Nucleated RBC % Metamyelocytes Hypochromia Platelet Estimate Polychromasia Poikilocytosis Anisocytosis Microcytosis Macrocytosis Puncture Site Right radial Patient Temperature ABG pH 7.18 L* ABG pCO2 at Pt Temp 41.9 D ABG pO2 at Pt Temp 265.0 H* ABG HCO3 15.0 L ABG O2 Sat (Measured) 99.5 H ABG O2 Content 15.7 ABG Base Excess -12.4 L* Eliezer Test Positive O2 Delivery Device Vent Oxygen Flow Rate 100% Vent Mode A/c Vent Rate 18 Mechanical Rate Yes PEEP 7.0 Pressure Support Vent 280 Sodium Potassium Chloride Carbon Dioxide Anion Gap BUN Creatinine Creat Clearance w eGFR POC Glucometer 142.24247 138.41374 Random Glucose Hemoglobin A1c % Serum Osmolality Calcium Phosphorus Magnesium Total Bilirubin Direct Bilirubin AST ALT Alkaline Phosphatase Troponin I Total Protein Albumin Total Amylase Lipase Urine Color Urine Appearance Urine pH Ur Specific [place] Urine Protein Urine Glucose (UA) Urine Ketones Urine Blood Urine Nitrite Urine Bilirubin Urine Urobilinogen Ur Leukocyte Esterase Urine WBC (Auto) Urine RBC (Auto) Urine Bacteria Urine Yeast Opiates Screen Methadone Screen Barbiturate Screen Phencyclidine Screen Ur Amphetamines Screen MDMA (Ecstasy) Screen Benzodiazepines Screen Cocaine Screen U Marijuana (THC) Screen 08/01/18 08/01/18 08/01/18 05:30 05:30 05:30 WBC 22.0 H RBC 3.24 L Hgb 11.1 L Hct 34.4 L MCV 106.1 H MCH 34.1 H MCHC 32.1 RDW 14.8 Plt Count 359 MPV 8.1 Absolute Neuts (auto) 20.0 H Neutrophils % 90.6 H Neutrophils % (Manual) 89.7 H Band Neutrophils % 0.0 Lymphocytes % 4.8 L D Lymphocytes % (Manual) 9.3 D Monocytes % 4.4 Monocytes % (Manual) 1 L D Eosinophils % 0.0 D Eosinophils % (Manual) 0.0 D Basophils % 0.2 Basophils % (Manual) 0.0 Myelocytes % (Man) 0 Promyelocytes % (Man) 0 Blast Cells % (Manual) 0 Nucleated RBC % 0 Metamyelocytes 0 Hypochromia 0 Platelet Estimate Normal Polychromasia 0 Poikilocytosis 0 Anisocytosis 1+ Microcytosis 0 Macrocytosis 1+ Puncture Site Patient Temperature ABG pH ABG pCO2 at Pt Temp ABG pO2 at Pt Temp ABG HCO3 ABG O2 Sat (Measured) ABG O2 Content ABG Base Excess Eliezer Test O2 Delivery Device Oxygen Flow Rate Vent Mode Vent Rate Mechanical Rate PEEP Pressure Support Vent Sodium 147 H Potassium 3.6 Chloride 121 H Carbon Dioxide 19 L Anion Gap 8 BUN 21 H Creatinine 1.2 Creat Clearance w eGFR > 60 POC Glucometer Random Glucose 160 H Hemoglobin A1c % Serum Osmolality Calcium 8.5 Phosphorus 3.1 Magnesium 1.9 Total Bilirubin 0.3 Direct Bilirubin 0.1 AST 117 H ALT 53 Alkaline Phosphatase 163 H Troponin I 0.12 H Total Protein 5.3 L Albumin 1.8 L Total Amylase 30 Lipase 349 Urine Color Urine Appearance Urine pH Ur Specific [place] Urine Protein Urine Glucose (UA) Urine Ketones Urine Blood Urine Nitrite Urine Bilirubin Urine Urobilinogen Ur Leukocyte Esterase Urine WBC (Auto) Urine RBC (Auto) Urine Bacteria Urine Yeast Opiates Screen Methadone Screen Barbiturate Screen Phencyclidine Screen Ur Amphetamines Screen MDMA (Ecstasy) Screen Benzodiazepines Screen Cocaine Screen U Marijuana (THC) Screen 08/01/18 08/01/18 08/01/18 05:30 05:30 05:50 WBC RBC Hgb Hct MCV MCH MCHC RDW Plt Count MPV Absolute Neuts (auto) Neutrophils % Neutrophils % (Manual) Band Neutrophils % Lymphocytes % Lymphocytes % (Manual) Monocytes % Monocytes % (Manual) Eosinophils % Eosinophils % (Manual) Basophils % Basophils % (Manual) Myelocytes % (Man) Promyelocytes % (Man) Blast Cells % (Manual) Nucleated RBC % Metamyelocytes Hypochromia Platelet Estimate Polychromasia Poikilocytosis Anisocytosis Microcytosis Macrocytosis Puncture Site Left radial Patient Temperature 95.5 ABG pH 7.22 L* ABG pCO2 at Pt Temp 39.1 ABG pO2 at Pt Temp 133.0 H D ABG HCO3 15.9 L ABG O2 Sat (Measured) 98.7 ABG O2 Content 14.1 L ABG Base Excess -11.2 L* Eliezer Test Positive O2 Delivery Device Vent Oxygen Flow Rate 100 Vent Mode Vent Rate 18 Mechanical Rate PEEP 5.0 Pressure Support Vent 280 Sodium Potassium Chloride Carbon Dioxide Anion Gap BUN Creatinine Creat Clearance w eGFR POC Glucometer Random Glucose Hemoglobin A1c % 4.3 Serum Osmolality 309 H Calcium Phosphorus Magnesium Total Bilirubin Direct Bilirubin AST ALT Alkaline Phosphatase Troponin I Total Protein Albumin Total Amylase Lipase Urine Color Urine Appearance Urine pH Ur Specific [place] Urine Protein Urine Glucose (UA) Urine Ketones Urine Blood Urine Nitrite Urine Bilirubin Urine Urobilinogen Ur Leukocyte Esterase Urine WBC (Auto) Urine RBC (Auto) Urine Bacteria Urine Yeast Opiates Screen Methadone Screen Barbiturate Screen Phencyclidine Screen Ur Amphetamines Screen MDMA (Ecstasy) Screen Benzodiazepines Screen Cocaine Screen U Marijuana (THC) Screen 08/01/18 08/01/18 07:25 07:25 WBC RBC Hgb Hct MCV MCH MCHC RDW Plt Count MPV Absolute Neuts (auto) Neutrophils % Neutrophils % (Manual) Band Neutrophils % Lymphocytes % Lymphocytes % (Manual) Monocytes % Monocytes % (Manual) Eosinophils % Eosinophils % (Manual) Basophils % Basophils % (Manual) Myelocytes % (Man) Promyelocytes % (Man) Blast Cells % (Manual) Nucleated RBC % Metamyelocytes Hypochromia Platelet Estimate Polychromasia Poikilocytosis Anisocytosis Microcytosis Macrocytosis Puncture Site Patient Temperature ABG pH ABG pCO2 at Pt Temp ABG pO2 at Pt Temp ABG HCO3 ABG O2 Sat (Measured) ABG O2 Content ABG Base Excess Eliezer Test O2 Delivery Device Oxygen Flow Rate Vent Mode Vent Rate Mechanical Rate PEEP Pressure Support Vent Sodium Potassium Chloride Carbon Dioxide Anion Gap BUN Creatinine Creat Clearance w eGFR POC Glucometer Random Glucose Hemoglobin A1c % Serum Osmolality Calcium Phosphorus Magnesium Total Bilirubin Direct Bilirubin AST ALT Alkaline Phosphatase Troponin I Total Protein Albumin Total Amylase Lipase Urine Color Straw Urine Appearance Slcloudy Urine pH 6.0 Ur Specific [place] 1.002 L Urine Protein Negative Urine Glucose (UA) Negative Urine Ketones Negative Urine Blood 3+ H Urine Nitrite Negative Urine Bilirubin Negative Urine Urobilinogen Negative Ur Leukocyte Esterase 2+ H Urine WBC (Auto) 11 Urine RBC (Auto) 1 Urine Bacteria Rare Urine Yeast Few Opiates Screen Negative Methadone Screen Negative Barbiturate Screen Negative Phencyclidine Screen Negative Ur Amphetamines Screen Negative MDMA (Ecstasy) Screen Negative Benzodiazepines Screen Positive A* Cocaine Screen Negative U Marijuana (THC) Screen Negative Active Medications Generic Name Dose Route Start Last Admin Trade Name Freq PRN Reason Stop Dose Admin Acetylcysteine 600 mg 07/29/18 20:00 08/01/18 08:40 Mucomyst 20 Oral / Inh Use Only* NEB 600 mg RQID JULIO Administration Albuterol Sulfate 1 amp 07/29/18 20:00 08/01/18 08:40 Ventolin 0.083% Nebulizer Soln - NEB 1 amp RQID JULIO Administration Chlorhexidine Gluconate 1 applic 07/29/18 22:00 07/31/18 22:40 Hibiclens For Decolonization - TP 1 applic HS JULIO Administration Clobazam 15 mg 07/30/18 22:00 08/01/18 09:19 Onfi - GT 15 mg BID JULIO Administration Diazepam 5 mg 07/31/18 10:00 08/01/18 09:17 Valium - GT 5 mg DAILY JULIO Administration Fludrocortisone Acetate 0.05 mg 07/30/18 12:00 08/01/18 09:16 Florinef - GT 0.05 mg DAILY JULIO Administration Heparin Sodium (Porcine) 5,000 unit 07/30/18 14:00 08/01/18 06:39 Heparin - SQ 5,000 unit TID JULIO Administration Hydrocortisone Sodium Succinate 50 mg 07/30/18 12:30 08/01/18 06:39 Solu-Cortef - IVPB 50 mg Q6H JULIO Administration Doxycycline Hyclate 100 mg/ 100 mls @ 100 mls/hr 07/29/18 22:00 08/01/18 09: 18 Dextrose IVPB 100 mls/hr BID JULIO Administration Dopamine HCl/Dextrose 400,000 mcg in 250 mls @ 9.611 mls/hr 07/29/18 23:00 23:30 Dopamine 400 Mg/D5w - IVPB Not Given TITR JULIO Protocol 5 MCG/KG/MIN Norepinephrine Bitartrate 8, 500 mls @ 18.75 mls/hr 07/30/18 01:30 08/01/18 10:44 000 mcg/ Dextrose IV 20 mcg/min TITR JULIO 75 mls/hr Titration Protocol 5 MCG/MIN Piperacillin Sod/Tazobactam 50 mls @ 100 mls/hr 07/30/18 18:00 08/01/18 09:18 Sod 3.375 gm/ Dextrose IVPB 100 mls/hr Q8H-IV JULIO Administration Protocol Sodium Chloride 1,000 mls @ 75 mls/hr 08/01/18 00:45 08/01/18 01:38 1/2 Normal Saline IV 75 mls/hr ASDIR JULIO Administration Lactulose 20 gm 07/30/18 22:00 08/01/18 09:16 Cephulac (Oral Use) GT 20 gm BID JULIO Administration Lorazepam 1 mg 07/30/18 12:33 Ativan Injection - IVPUSH Q6H PRN seizures Mupirocin 1 applic 07/29/18 22:00 08/01/18 09:16 Bactroban Ointment (For Decolonization) - NS 08/03/18 21:59 1 applic BID JULIO Administration Pantoprazole Sodium 40 mg 07/31/18 10:00 08/01/18 09:19 Protonix Iv IVPUSH 40 mg DAILY JULIO Administration Simethicone 40 mg 07/30/18 22:00 08/01/18 09:19 Mylicon Liquid - GT 40 mg BID JULIO Administration Sodium Bicarbonate 650 mg 07/31/18 14:00 08/01/18 06:39 Sodium Bicarbonate - PO 650 mg TID JULIO Administration Topiramate 100 mg 07/30/18 22:00 08/01/18 09:17 Topamax - GT 100 mg BID JULIO Administration ASSESSMENT/PLAN: 28 y/o M from [facility] with a PMHx of Seizure Disorder, Microcephaly, Profound MR, Paraplegia, Scoliosis presented to the ED with severe sepsis was transferred to the ICU after a Code 99 was called (07/29/18) for PEA s/p intubation #Neuro * S/P CP arrest * Not candidate for targeted temp management secondary to severe bradycardia. * Neuro consult appreciated. * Continue antiepileptic meds. * was able to spontaneously breath on vent. * NO pupillary reflex, no response to pain stimuli. #ID * Septic Shock * Hypothermia * Likely multifactorial, in part due to aspiration pneumonia * Hypothermic, Hypotensive on arrival in ICU; Improved since however remains Labile * Currently on Norepinephrine, Dopamine * Sputum cx: Diphtheroid/Corynebacterium * ID (Dr. Bauer) consulted * Continue Hydrocortisone 50 q6H, Fludrocortisone 0.05 Daily * Palliative care consulted #Cardiovascular * Continue to require high dose Norepi. will continue to try to wean * Maintain MAP >65 * Troponin < 0.02 * ECHO: LV Systolic function is mildly reduced, mild global hypokinesis of the LV * Hypotension due to Septic Shock #Pulmonary * Septic shock likely due to Aspiration Pneumonia * Continue Zosyn, Doxycycline * Intubated, Vent settings 18/280/100%/+7 #PPx * DVT: Heparin TID * GI: Protonix 40 Daily #FEN -No standing fluids -Replete Mag -NPO Dispo: Continue to monitor in ICU. Prognosis is poor. Visit type - Emergency Visit Emergency Visit: Yes ED Registration Date: 07/23/18 Care time: The patient presented to the Emergency Department on the above date and was hospitalized for further evaluation of their emergent condition. - New Patient This patient is new to me today: Yes Date on this admission: 08/01/18 - Critical Care Critical Care patient: Yes Total Critical Care Time (in minutes): 33 Critical Care Statement: The care of this patient involved high complexity decision making to prevent further life threatening deterioration of the patient 's condition and/or to evaluate & treat vital organ system(s) failure or risk of failure.
--- NOTE | 2018-08-01 11:48 | PN ---
Teaching Attending Note Name of Resident: Charbel Nicolas ATTENDING PHYSICIAN STATEMENT I saw and evaluated the patient. I reviewed the resident's note and discussed the case with the resident. I agree with the resident's findings and plan as documented. SUBJECTIVE: Pt seen and examined in the ICU. Remains intubated, unresponsive off sedation. On high dose levophed gtt. Breathing over vent. OBJECTIVE: Vital Signs Period Temp Pulse Resp BP Sys/Saha Pulse Ox Last 24 Hr 92.3 F-99.5 F 56-108 - 87-131/50-86 98-100 Intake & Output 07/29/18 07/30/18 07/31/18 08/01/18 23:59 23:59 23:59 23:59 Intake Total 2500 9706.8 3415.6 2149 Output Total 1350 2000 2800 1200 Balance 1150 7706.8 615.6 949 Weight 51.256 kg 61.779 kg 61.6 kg 53.5 kg Gen: intubated, unresponsive Heart: RRR Lung: scattered rhonchi Abd: soft, nontender Ext: + edema CBC, BMP 08/01/18 05:30 08/01/18 05:30 Active Medications Acetylcysteine (Mucomyst 20 Oral / Inh Use Only*) 600 mg NEB RQID [facility] Last Admin: 08/01/18 08:40 Dose: 600 mg Albuterol Sulfate (Ventolin 0.083% Nebulizer Soln -) 1 amp NEB RQID [facility] Last Admin: 08/01/18 08:40 Dose: 1 amp Chlorhexidine Gluconate (Hibiclens For Decolonization -) 1 applic TP HS [facility] Last Admin: 07/31/18 22:40 Dose: 1 applic Clobazam (Onfi -) 15 mg GT BID [facility] Last Admin: 08/01/18 09:19 Dose: 15 mg Diazepam (Valium -) 5 mg GT DAILY [facility] Last Admin: 08/01/18 09:17 Dose: 5 mg Fludrocortisone Acetate (Florinef -) 0.05 mg GT DAILY [facility] Last Admin: 08/01/18 09:16 Dose: 0.05 mg Heparin Sodium (Porcine) (Heparin -) 5,000 unit SQ TID [facility] Last Admin: 08/01/18 06:39 Dose: 5,000 unit Hydrocortisone Sodium Succinate (Solu-Cortef -) 50 mg IVPB Q6H [facility] Last Admin: 08/01/18 06:39 Dose: 50 mg Doxycycline Hyclate 100 mg/ (Dextrose) 100 mls @ 100 mls/hr IVPB BID [facility] Last Admin: 08/01/18 09:18 Dose: 100 mls/hr Dopamine HCl/Dextrose (Dopamine 400 Mg/D5w -) 400,000 mcg in 250 mls @ 9.611 mls/hr IVPB TITR [facility]; Protocol Last Admin: 07/31/18 23:30 Dose: Not Given Norepinephrine Bitartrate 8, (000 mcg/ Dextrose) 500 mls @ 18.75 mls/hr IV TITR [facility]; Protocol Last Titration: 08/01/18 10:44 Dose: 20 mcg/min, 75 mls/hr Piperacillin Sod/Tazobactam (Sod 3.375 gm/ Dextrose) 50 mls @ 100 mls/hr IVPB Q8H-IV [facility]; Protocol Last Admin: 08/01/18 09:18 Dose: 100 mls/hr Sodium Chloride (1/2 Normal Saline) 1,000 mls @ 75 mls/hr IV ASDIR [facility] Last Admin: 08/01/18 01:38 Dose: 75 mls/hr Lactulose (Cephulac (Oral Use)) 20 gm GT BID [facility] Last Admin: 08/01/18 09:16 Dose: 20 gm Lorazepam (Ativan Injection -) 1 mg IVPUSH Q6H PRN PRN Reason: seizures Mupirocin (Bactroban Ointment (For Decolonization) -) 1 applic NS BID [facility] Stop: 08/03/18 21:59 Last Admin: 08/01/18 09:16 Dose: 1 applic Pantoprazole Sodium (Protonix Iv) 40 mg IVPUSH DAILY [facility] Last Admin: 08/01/18 09:19 Dose: 40 mg Simethicone (Mylicon Liquid -) 40 mg GT BID [facility] Last Admin: 08/01/18 09:19 Dose: 40 mg Sodium Bicarbonate (Sodium Bicarbonate -) 650 mg PO TID [facility] Last Admin: 08/01/18 06:39 Dose: 650 mg Topiramate (Topamax -) 100 mg GT BID [facility] Last Admin: 08/01/18 09:17 Dose: 100 mg ASSESSMENT AND PLAN: s/p Cardiopulmonary Arrest Likely Anoxic Encephalopathy Pneumonia likely Aspiration Septic Shock +Troponins likely Demand Ischemia Metabolic Acidosis Mental Retardation Cerebral Palsy Seizure Disorder - continue antibiotics - f/u cultures - taper levophed gtt to maintain MAP >65 - continue stress dose steroids - IVF - monitor urine output, creatinine - bicarb - monitor ABG - hold all sedation to assess mental status - not a candidate for weaning at this time - DVT/GI prophylaxis - poor overall prognosis - continue discussions regarding goals of care, advanced directives - continue ICU monitoring critical care time spent in reviewing chart, evaluating patient and formulating plan 35 min
[2018-08-01] MEDS: NOREPINEPHRINE BITARTRATE 8,000 MCG in DEXTROSE 5%-WATER - 492 ML IV SCH (12:18)
--- NOTE | 2018-08-01 15:07 | HOSP ---
Subjective - Review of Symptoms Events since last encounter: no change and he remained in coma and on vent Other Systems: ros neg Physical Examination Vital Signs: Vital Signs Temperature 97.1 F L 08/01/18 13:15 Pulse Rate 96 H 08/01/18 14:27 Respiratory Rate 18 08/01/18 14:00 Blood Pressure 130/77 08/01/18 14:27 O2 Sat by Pulse Oximetry (%) 98 08/01/18 08:05 Constitutional: Yes: No Distress HENT: Yes: Normocephalic Cardiovascular: Yes: Regular Rate and Rhythm Respiratory: Yes: Regular (vent breathing) Neurological: Yes: Unresponsive Labs: CBC, BMP 08/01/18 05:30 08/01/18 05:30 Hospitalist Encounter Assessment: Current Medications Acetylcysteine (Mucomyst 20 Oral / Inh Use Only*) 600 mg NEB RQID [facility] Last Admin: 08/01/18 12:27 Dose: 600 mg Albuterol Sulfate (Ventolin 0.083% Nebulizer Soln -) 1 amp NEB RQID [facility] Last Admin: 08/01/18 12:27 Dose: 1 amp Chlorhexidine Gluconate (Hibiclens For Decolonization -) 1 applic TP HS [facility] Last Admin: 07/31/18 22:40 Dose: 1 applic Clobazam (Onfi -) 15 mg GT BID [facility] Last Admin: 08/01/18 09:19 Dose: 15 mg Diazepam (Valium -) 5 mg GT DAILY [facility] Last Admin: 08/01/18 09:17 Dose: 5 mg Fludrocortisone Acetate (Florinef -) 0.05 mg GT DAILY [facility] Last Admin: 08/01/18 09:16 Dose: 0.05 mg Heparin Sodium (Porcine) (Heparin -) 5,000 unit SQ TID [facility] Last Admin: 08/01/18 13:04 Dose: 5,000 unit Hydrocortisone Sodium Succinate (Solu-Cortef -) 50 mg IVPB Q6H [facility] Last Admin: 08/01/18 12:17 Dose: 50 mg Doxycycline Hyclate 100 mg/ (Dextrose) 100 mls @ 100 mls/hr IVPB BID [facility] Last Admin: 08/01/18 09:18 Dose: 100 mls/hr Norepinephrine Bitartrate 8, (000 mcg/ Dextrose) 500 mls @ 18.75 mls/hr IV TITR [facility]; Protocol Last Titration: 08/01/18 14:27 Dose: 11 mcg/min, 41.25 mls/hr Piperacillin Sod/Tazobactam (Sod 3.375 gm/ Dextrose) 50 mls @ 100 mls/hr IVPB Q8H-IV [facility]; Protocol Last Admin: 08/01/18 09:18 Dose: 100 mls/hr Sodium Chloride (1/2 Normal Saline) 1,000 mls @ 75 mls/hr IV ASDIR [facility] Last Admin: 08/01/18 01:38 Dose: 75 mls/hr Lactulose (Cephulac (Oral Use)) 20 gm GT BID [facility] Last Admin: 08/01/18 09:16 Dose: 20 gm Lorazepam (Ativan Injection -) 1 mg IVPUSH Q6H PRN PRN Reason: seizures Mupirocin (Bactroban Ointment (For Decolonization) -) 1 applic NS BID [facility] Stop: 08/03/18 21:59 Last Admin: 08/01/18 09:16 Dose: 1 applic Pantoprazole Sodium (Protonix Iv) 40 mg IVPUSH DAILY [facility] Last Admin: 08/01/18 09:19 Dose: 40 mg Simethicone (Mylicon Liquid -) 40 mg GT BID [facility] Last Admin: 08/01/18 09:19 Dose: 40 mg Sodium Bicarbonate (Sodium Bicarbonate -) 650 mg PO TID [facility] Last Admin: 08/01/18 13:04 Dose: 650 mg Topiramate (Topamax -) 100 mg GT BID [facility] Last Admin: 08/01/18 09:17 Dose: 100 mg SSESSMENT AND PLAN: s/p Cardiopulmonary Arrest Likely Anoxic Encephalopathy Pneumonia likely Aspiration Septic Shock Mental Retardation Cerebral Palsy Seizure Disorder - continue antibiotics - f/u cultures - continue stress dose steroids - IVF - not a candidate for weaning at this time - continue discussions regarding goals of care, advanced directives - continue ICU monitoring
[2018-08-01] MEDS: KCL 10 MEQ IVPB 10 MEQ/100 ML INFUS.BAG IVPB SCH ×3 (18:58→22:17)
[2018-08-01 19:01] LABS: BASO % 0.1 % (0-2.0); HEMATOCRIT 31.3 % (35.4-49); HEMOGLOBIN 10.2 GM/dL (11.7-16.9); LYMPH % 5.8 % (8-40); MCH 34.6 pg (25.7-33.7); MCHC 32.5 g/dl (32.0-35.9); MEAN CELL VOLUME 106.3 fl (80-96); MONO % 3.6 % (3.8-10.2); NEUT % 90.5 % (42.8-82.8); PLATELET COUNT 296 K/MM3 (134-434); RBC 2.95 M/mm3 (4.00-5.60); RDW 14.9 % (11.9-15.9); WHITE BLOOD COUNT 21.6 K/mm3 (4.0-10.0)
[2018-08-01 19:16] LABS: INR 1.05 (0.83-1.09); PROTHROMBIN TIME (PATIENT) 12.4 SEC (9.7-13.0)
[2018-08-01 19:19] LABS: ACTIVATED PTT 33.9 SECONDS (25.2-36.5)
[2018-08-01 20:17] LABS: ALBUMIN 1.7 g/dl (3.4-5.0); ALK PHOS 168 U/L (45-117); BILIRUBIN,DIRECT 0.1 mg/dL (0.0-0.2); BILIRUBIN,TOTAL 0.2 mg/dL (0.2-1); BLOOD UREA NITROGEN 19 mg/dL (7-18); CALCIUM 7.9 mg/dL (8.5-10.1); CHLORIDE 133 mmol/L (98-107); CO2 19 mmol/L (21-32); CREATININE 1.5 mg/dL (0.55-1.3); GLUCOSE,RANDOM 139 mg/dL (74-106); MAGNESIUM 1.7 mg/dL (1.8-2.4); PHOSPHOROUS 2.4 mg/dL (2.5-4.9); SGOT/AST 117 U/L (15-37); SGPT/ALT 47 U/L (13-61)
[2018-08-01 20:18] LABS: ANION GAP 11 MMOL/L (8-16)
[2018-08-01 20:19] LABS: SODIUM 164 mmol/L (136-145)
[2018-08-01 21:01] LABS: MACROCYTOSIS 2+; PLATELET ESTIMATE ADEQUATE
[2018-08-01 21:38] LABS: ARTERIAL BLD GAS O2 SATURATION 98.4 % (90-98.9); ARTERIAL BLOOD GAS BASE EXCESS -9.3 meq/l (-2-2); ARTERIAL BLOOD GAS PCO2 41.8 mmHg (35-45); ARTERIAL BLOOD GAS pH 7.24 (7.35-7.45)
[2018-08-01 21:41] LABS: ALLENS TEST POSITIVE
[2018-08-01] MEDS ORDERED: VASOPRESSIN 20 UNITS/ML VIAL IV ONE (21:52)
[2018-08-01] MEDS: VASOPRESSIN 50 UNITS in SODIUM CHLORIDE 97.5 ML IVPB SCH (22:15)
[2018-08-01] MEDS: CHLORHEXIDINE GLUCONATE 4% CLEANSER FOR DECOLONIZATION TP SCH (22:18)
[2018-08-02] MEDS: HYDROCORTISONE SOD SUCCINATE 100 MG/2 ML VIAL IVPB SCH ×4 (01:00→17:46)
[2018-08-02 01:25] LABS: BASO % 0.3 % (0-2.0); EOS % 0.1 % (0-4.5); HEMATOCRIT 30.6 % (35.4-49); HEMOGLOBIN 9.9 GM/dL (11.7-16.9); MCH 34.4 pg (25.7-33.7); MCHC 32.4 g/dl (32.0-35.9); MEAN CELL VOLUME 106.2 fl (80-96); MEAN PLT VOLUME 7.9 fl (7.5-11.1); MONO % 4.1 % (3.8-10.2); NEUT % 90.5 % (42.8-82.8); PLATELET COUNT 282 K/MM3 (134-434); RBC 2.89 M/mm3 (4.00-5.60); WHITE BLOOD COUNT 22.3 K/mm3 (4.0-10.0)
[2018-08-02] MEDS: SODIUM CHLORIDE 0.45% 1,000 ML IV SCH (01:30)
[2018-08-02] MEDS: NOREPINEPHRINE BITARTRATE 8,000 MCG in DEXTROSE 5%-WATER - 492 ML IV SCH (01:30)
[2018-08-02 01:36] LABS: INR 1.06 (0.83-1.09); PROTHROMBIN TIME (PATIENT) 12.5 SEC (9.7-13.0)
[2018-08-02 01:50] LABS: ALBUMIN 1.8 g/dl (3.4-5.0); ALK PHOS 162 U/L (45-117); ANION GAP 6 MMOL/L (8-16); BILIRUBIN,DIRECT 0.1 mg/dL (0.0-0.2); BILIRUBIN,TOTAL 0.3 mg/dL (0.2-1); BLOOD UREA NITROGEN 17 mg/dL (7-18); CALCIUM 8.2 mg/dL (8.5-10.1); CHLORIDE 134 mmol/L (98-107); CO2 19 mmol/L (21-32); CREATININE 1.5 mg/dL (0.55-1.3); GLUCOSE,RANDOM 147 mg/dL (74-106); MAGNESIUM 1.9 mg/dL (1.8-2.4); POTASSIUM 3.2 mmol/L (3.5-5.1); SGOT/AST 129 U/L (15-37); SGPT/ALT 47 U/L (13-61); SODIUM 160 mmol/L (136-145)
[2018-08-02] MEDS ORDERED: PIPERACILLIN/TAZOBACTAM 3.375 GM VIAL IVPB ONE ×3 (02:12→17:38)
[2018-08-02] MEDS ORDERED: DEXTROSE 5%-WATER - 50 ML IVPB ONE ×3 (02:12→17:39)
[2018-08-02] MEDS: PIPERACILLIN/TAZOB 3.375 GM 3.375 GM in DEXTROSE 5%-WATER - 50 ML IVPB SCH ×3 (02:33→17:46)
[2018-08-02 04:03] LABS: ARTERIAL BLOOD GAS BASE EXCESS -8.1 meq/l (-2-2); ARTERIAL BLOOD GAS PCO2 31.1 mmHg (35-45); ARTERIAL BLOOD GAS pH 7.34 (7.35-7.45)
[2018-08-02 04:08] LABS: ALLENS TEST POSITIVE
[2018-08-02 05:49] LABS: BASO % 0.1 % (0-2.0); EOS % 0.1 % (0-4.5); HEMATOCRIT 28.2 % (35.4-49); HEMOGLOBIN 9.2 GM/dL (11.7-16.9); MCH 34.3 pg (25.7-33.7); MCHC 32.6 g/dl (32.0-35.9); MEAN CELL VOLUME 105.2 fl (80-96); MEAN PLT VOLUME 7.8 fl (7.5-11.1); MONO % 3.4 % (3.8-10.2); NEUT % 90.4 % (42.8-82.8); PLATELET COUNT 262 K/MM3 (134-434); RBC 2.68 M/mm3 (4.00-5.60); RDW 14.9 % (11.9-15.9); WHITE BLOOD COUNT 22.4 K/mm3 (4.0-10.0)
[2018-08-02 06:03] LABS: INR 1.08 (0.83-1.09); PROTHROMBIN TIME (PATIENT) 12.7 SEC (9.7-13.0)
[2018-08-02 06:05] LABS: ACTIVATED PTT 33.7 SECONDS (25.2-36.5)
[2018-08-02] MEDS: SODIUM BICARBONATE 650 MG TABLET PO SCH ×3 (06:12→22:05)
[2018-08-02] MEDS ORDERED: PT OWN MED DRAWER 7, Y5N ONE ×3 (06:13→21:40)
[2018-08-02] MEDS: HEPARIN NA (PORCINE) 5,000 UNITS/ML 1ML VIAL SQ SCH ×3 (06:15→22:00)
[2018-08-02] MEDS ORDERED: DEXTROSE 5%-WATER 500 ML PVC-FREE INFUS.BAG IV ONE (06:41)
[2018-08-02 06:42] LABS: ALBUMIN 1.7 g/dl (3.4-5.0); ALK PHOS 156 U/L (45-117); ANION GAP 8 MMOL/L (8-16); BILIRUBIN,DIRECT 0.1 mg/dL (0.0-0.2); BILIRUBIN,TOTAL 0.3 mg/dL (0.2-1); BLOOD UREA NITROGEN 17 mg/dL (7-18); CALCIUM 8.2 mg/dL (8.5-10.1); CHLORIDE 130 mmol/L (98-107); CO2 18 mmol/L (21-32); CREATININE 1.5 mg/dL (0.55-1.3); GLUCOSE,RANDOM 162 mg/dL (74-106); MAGNESIUM 1.9 mg/dL (1.8-2.4); SGOT/AST 130 U/L (15-37); SGPT/ALT 44 U/L (13-61); SODIUM 156 mmol/L (136-145); TOT PROT 4.9 g/dl (6.4-8.2)
[2018-08-02 06:59] LABS: PHOSPHOROUS 1.1 mg/dL (2.5-4.9); POTASSIUM 2.9 mmol/L (3.5-5.1)
[2018-08-02] MEDS ORDERED: POTASSIUM PHOSPHATE 40 MM in DEXTROSE 5%-WATER - 500 ML IVPB ONE (07:00)
[2018-08-02 08:12] LABS: URINE APPEARANCE CLEAR; URINE BILIRUBIN NEGATIVE (<2.0 mg/dL); URINE COLOR STRAW; URINE GLUCOSE (UA) 1+ (NEGATIVE); URINE KETONE NEGATIVE (NEGATIVE); URINE LEUK ESTERASE 2+ (NEGATIVE); URINE NITRITE NEGATIVE (NEGATIVE); URINE PROTEIN NEGATIVE (NEGATIVE); URINE UROBILINOGEN NEGATIVE mg/dL (0.2-1.0)
[2018-08-02] MEDS: ACETYLCYSTEINE 20% 200MG/ML 4 ML VIAL *FOR ORAL / INH USE ONLY NEB SCH ×4 (08:13→20:00)
[2018-08-02] MEDS: ALBUTEROL SO4 0.083% IH SOL 2.5 MG/3 ML VIAL.NEB. NEB SCH ×4 (08:13→20:00)
[2018-08-02 08:27] LABS: URINE BACTERIA RARE /hpf (NONE SEEN); URINE MUCUS RARE
[2018-08-02 08:42] LABS: ANISOCYTOSIS 2+; MACROCYTOSIS 2+; PLATELET ESTIMATE ADEQUATE
[2018-08-02 09:33] LABS: SMUDGE CELLS FEW
[2018-08-02] MEDS: LACTULOSE 20 GM/30 ML UDC (FOR ORAL USE ONLY) GT SCH ×2 (10:00→22:00)
[2018-08-02] MEDS: cloBAZam 10 MG TABLET GT SCH ×2 (10:08→22:05)
[2018-08-02 10:09] LABS: ARTERIAL BLD GAS O2 SATURATION 99.4 % (90-98.9); ARTERIAL BLOOD GAS BASE EXCESS -7.5 meq/l (-2-2); ARTERIAL BLOOD GAS PCO2 22.6 mmHg (35-45); ARTERIAL BLOOD GAS pH 7.44 (7.35-7.45)
[2018-08-02] MEDS: TOPIRAMATE 100 MG TABLET GT SCH ×2 (10:09→22:06)
[2018-08-02] MEDS: PANTOPRAZOLE SODIUM 40 MG VIAL IVPUSH SCH (10:09)
[2018-08-02] MEDS: FLUDROCORTISONE ACETATE 0.1 MG TABLET (FP) GT SCH (10:09)
[2018-08-02] MEDS: SIMETHICONE 40 MG/0.6 ML BOTTLE GT SCH ×2 (10:09→22:01)
[2018-08-02] MEDS: diazePAM 5 MG TABLET GT SCH (10:09)
[2018-08-02 10:15] LABS: ALLENS TEST POSITIVE
--- NOTE | 2018-08-02 10:40 | PN ---
Physical Exam: SUBJECTIVE: Patient seen and examined this morning. No acute overnight events. Continues to require pressors for BP Support. Started on Vasopressin gtt, DI Improved. OBJECTIVE: Vital Signs Period Temp Pulse Resp BP Sys/Saha Pulse Ox Last 24 Hr 96 F-99.5 F 82-103 18-22 107-152/54-92 100 GENERAL: Intubated, Unresponsive HEAD: Microcephaly, NCAT EYES: Pupils nonreactive, fixed ENT: Moist mucous membranes NECK: Supple LUNGS: Mechanical breath sounds, not breathing above the vent HEART: Regular rate and rhythm, S1, S2 without murmur ABDOMEN: Soft, nontender, nondistended, + bowel sounds EXTREMITIES: 2+ pulses, Limbs contracted, no edema. NEUROLOGICAL: Absent pupillary reflex. No withdrawal to pain stimuli SKIN: Warm, dry Laboratory Results - last 24 hr 08/01/18 08/01/18 08/01/18 05:30 12:00 16:00 WBC 21.6 H RBC 2.95 L Hgb 10.2 L Hct 31.3 L MCV 106.3 H MCH 34.6 H MCHC 32.5 RDW 14.9 Plt Count 296 MPV 8.0 Absolute Neuts (auto) 19.6 H Total Counted Neutrophils % 90.5 H Neutrophils % (Manual) 89.0 H Band Neutrophils % 3.0 Lymphocytes % 5.8 L D Lymphocytes % (Manual) 8.0 Monocytes % 3.6 L Monocytes % (Manual) 0 L D Eosinophils % 0.0 Eosinophils % (Manual) 0.0 Basophils % 0.1 Basophils % (Manual) 0.0 Nucleated RBC % 0 Smudge Cells Hypochromia Platelet Estimate Adequate Platelet Comment Basophilic Stippling Rare Anisocytosis Macrocytosis 2+ PT with INR INR PTT (Actin FS) Fibrinogen Anticoagulation Therapy Puncture Site ABG pH ABG pCO2 at Pt Temp ABG pO2 at Pt Temp ABG HCO3 ABG O2 Sat (Measured) ABG O2 Content ABG Base Excess Eliezer Test O2 Delivery Device Oxygen Flow Rate Vent Mode Vent Rate Mechanical Rate PEEP Pressure Support Vent Sodium Potassium Chloride Carbon Dioxide Anion Gap BUN Creatinine Creat Clearance w eGFR Random Glucose Calcium Phosphorus Magnesium Total Bilirubin Direct Bilirubin 0.1 AST ALT Alkaline Phosphatase Creatine Kinase 1460 H Creatine Kinase Index 1.6 CK-MB (CK-2) 23.4 H Troponin I 0.12 H Total Protein Albumin Total Amylase 30 Lipase 349 Urine Color Urine Appearance Urine pH Ur Specific [place] Urine Protein Urine Glucose (UA) Urine Ketones Urine Blood Urine Nitrite Urine Bilirubin Urine Urobilinogen Ur Leukocyte Esterase Urine WBC (Auto) Urine RBC (Auto) Urine Bacteria Urine Mucus Urine Osmolality 70 L Blood Type Antibody Screen 08/01/18 08/01/18 08/01/18 16:00 16:00 16:00 WBC RBC Hgb Hct MCV MCH MCHC RDW Plt Count MPV Absolute Neuts (auto) Total Counted Neutrophils % Neutrophils % (Manual) Band Neutrophils % Lymphocytes % Lymphocytes % (Manual) Monocytes % Monocytes % (Manual) Eosinophils % Eosinophils % (Manual) Basophils % Basophils % (Manual) Nucleated RBC % Smudge Cells Hypochromia Platelet Estimate Platelet Comment Basophilic Stippling Anisocytosis Macrocytosis PT with INR 12.40 INR 1.05 PTT (Actin FS) 33.9 Fibrinogen > 500.0 H Anticoagulation Therapy Puncture Site ABG pH ABG pCO2 at Pt Temp ABG pO2 at Pt Temp ABG HCO3 ABG O2 Sat (Measured) ABG O2 Content ABG Base Excess Eliezer Test O2 Delivery Device Oxygen Flow Rate Vent Mode Vent Rate Mechanical Rate PEEP Pressure Support Vent Sodium 164 H* Potassium 3.0 L Chloride 133 H Carbon Dioxide 19 L Anion Gap 11 BUN 19 H Creatinine 1.5 H Creat Clearance w eGFR 55.33 Random Glucose 139 H Calcium 7.9 L Phosphorus 2.4 L Magnesium 1.7 L Total Bilirubin 0.2 Direct Bilirubin 0.1 AST 117 H ALT 47 Alkaline Phosphatase 168 H Creatine Kinase Creatine Kinase Index CK-MB (CK-2) Troponin I Total Protein 5.0 L Albumin 1.7 L Total Amylase Lipase Urine Color Urine Appearance Urine pH Ur Specific [place] Urine Protein Urine Glucose (UA) Urine Ketones Urine Blood Urine Nitrite Urine Bilirubin Urine Urobilinogen Ur Leukocyte Esterase Urine WBC (Auto) Urine RBC (Auto) Urine Bacteria Urine Mucus Urine Osmolality Blood Type Antibody Screen 08/01/18 08/01/18 08/02/18 19:30 21:20 00:55 WBC RBC Hgb Hct MCV MCH MCHC RDW Plt Count MPV Absolute Neuts (auto) Total Counted Neutrophils % Neutrophils % (Manual) Band Neutrophils % Lymphocytes % Lymphocytes % (Manual) Monocytes % Monocytes % (Manual) Eosinophils % Eosinophils % (Manual) Basophils % Basophils % (Manual) Nucleated RBC % Smudge Cells Hypochromia Platelet Estimate Platelet Comment Basophilic Stippling Anisocytosis Macrocytosis PT with INR 12.50 INR 1.06 PTT (Actin FS) 33.0 Fibrinogen Anticoagulation Therapy No Result Required. Puncture Site Left radial ABG pH 7.24 L* ABG pCO2 at Pt Temp 41.8 ABG pO2 at Pt Temp 127.0 H ABG HCO3 17.2 L ABG O2 Sat (Measured) 98.4 ABG O2 Content 16.2 ABG Base Excess -9.3 L Eliezer Test Positive O2 Delivery Device No Result Required. Oxygen Flow Rate Yes Vent Mode No Result Required. Vent Rate 22 Mechanical Rate No Result Required. PEEP 5.0 Pressure Support Vent 280 Sodium Potassium Chloride Carbon Dioxide Anion Gap BUN Creatinine Creat Clearance w eGFR Random Glucose Calcium Phosphorus Magnesium Total Bilirubin Direct Bilirubin AST ALT Alkaline Phosphatase Creatine Kinase Creatine Kinase Index CK-MB (CK-2) Troponin I Total Protein Albumin Total Amylase Lipase Urine Color Urine Appearance Urine pH Ur Specific [place] Urine Protein Urine Glucose (UA) Urine Ketones Urine Blood Urine Nitrite Urine Bilirubin Urine Urobilinogen Ur Leukocyte Esterase Urine WBC (Auto) Urine RBC (Auto) Urine Bacteria Urine Mucus Urine Osmolality Blood Type O POSITIVE Antibody Screen Negative 08/02/18 08/02/18 08/02/18 01:10 01:10 01:10 WBC 22.3 H RBC 2.89 L Hgb 9.9 L Hct 30.6 L MCV 106.2 H MCH 34.4 H MCHC 32.4 RDW 15.0 Plt Count 282 MPV 7.9 Absolute Neuts (auto) 20.2 H Total Counted 100 Neutrophils % 90.5 H Neutrophils % (Manual) 86.0 H Band Neutrophils % 5.0 Lymphocytes % 5.0 L Lymphocytes % (Manual) 6.0 L D Monocytes % 4.1 Monocytes % (Manual) 3 L D Eosinophils % 0.1 D Eosinophils % (Manual) Basophils % 0.3 Basophils % (Manual) Nucleated RBC % 0 Smudge Cells Few Hypochromia 1+ Platelet Estimate Adequate Platelet Comment No clumping noted Basophilic Stippling Anisocytosis 2+ Macrocytosis 2+ PT with INR INR PTT (Actin FS) Fibrinogen > 500.0 H Anticoagulation Therapy Puncture Site ABG pH ABG pCO2 at Pt Temp ABG pO2 at Pt Temp ABG HCO3 ABG O2 Sat (Measured) ABG O2 Content ABG Base Excess Eliezer Test O2 Delivery Device Oxygen Flow Rate Vent Mode Vent Rate Mechanical Rate PEEP Pressure Support Vent Sodium 160 H Potassium 3.2 L Chloride 134 H Carbon Dioxide 19 L Anion Gap 6 L BUN 17 Creatinine 1.5 H Creat Clearance w eGFR 55.33 Random Glucose 147 H Calcium 8.2 L Phosphorus 2.0 L Magnesium 1.9 Total Bilirubin 0.3 Direct Bilirubin 0.1 AST 129 H ALT 47 Alkaline Phosphatase 162 H Creatine Kinase Creatine Kinase Index CK-MB (CK-2) Troponin I Total Protein 5.0 L Albumin 1.8 L Total Amylase Lipase Urine Color Urine Appearance Urine pH Ur Specific [place] Urine Protein Urine Glucose (UA) Urine Ketones Urine Blood Urine Nitrite Urine Bilirubin Urine Urobilinogen Ur Leukocyte Esterase Urine WBC (Auto) Urine RBC (Auto) Urine Bacteria Urine Mucus Urine Osmolality Blood Type Antibody Screen 08/02/18 08/02/18 08/02/18 03:20 05:30 05:30 WBC 22.4 H RBC 2.68 L Hgb 9.2 L Hct 28.2 L MCV 105.2 H MCH 34.3 H MCHC 32.6 RDW 14.9 Plt Count 262 MPV 7.8 Absolute Neuts (auto) 20.2 H Total Counted Neutrophils % 90.4 H Neutrophils % (Manual) Band Neutrophils % Lymphocytes % 6.0 L Lymphocytes % (Manual) Monocytes % 3.4 L Monocytes % (Manual) Eosinophils % 0.1 Eosinophils % (Manual) Basophils % 0.1 Basophils % (Manual) Nucleated RBC % 0 Smudge Cells Hypochromia Platelet Estimate Platelet Comment Basophilic Stippling Anisocytosis Macrocytosis PT with INR 12.70 INR 1.08 PTT (Actin FS) 33.7 Fibrinogen Anticoagulation Therapy Puncture Site Left radial ABG pH 7.34 L ABG pCO2 at Pt Temp 31.1 L D ABG pO2 at Pt Temp 132.0 H ABG HCO3 16.3 L ABG O2 Sat (Measured) 99.0 H ABG O2 Content 12.3 L ABG Base Excess -8.1 L Eliezer Test Positive O2 Delivery Device Mech vent Oxygen Flow Rate 60% Vent Mode A/c Vent Rate 22 Mechanical Rate Yes PEEP 5.0 Pressure Support Vent 350 Sodium Potassium Chloride Carbon Dioxide Anion Gap BUN Creatinine Creat Clearance w eGFR Random Glucose Calcium Phosphorus Magnesium Total Bilirubin Direct Bilirubin AST ALT Alkaline Phosphatase Creatine Kinase Creatine Kinase Index CK-MB (CK-2) Troponin I Total Protein Albumin Total Amylase Lipase Urine Color Urine Appearance Urine pH Ur Specific [place] Urine Protein Urine Glucose (UA) Urine Ketones Urine Blood Urine Nitrite Urine Bilirubin Urine Urobilinogen Ur Leukocyte Esterase Urine WBC (Auto) Urine RBC (Auto) Urine Bacteria Urine Mucus Urine Osmolality Blood Type Antibody Screen 08/02/18 08/02/18 08/02/18 05:30 05:30 06:30 WBC RBC Hgb Hct MCV MCH MCHC RDW Plt Count MPV Absolute Neuts (auto) Total Counted Neutrophils % Neutrophils % (Manual) Band Neutrophils % Lymphocytes % Lymphocytes % (Manual) Monocytes % Monocytes % (Manual) Eosinophils % Eosinophils % (Manual) Basophils % Basophils % (Manual) Nucleated RBC % Smudge Cells Hypochromia Platelet Estimate Platelet Comment Basophilic Stippling Anisocytosis Macrocytosis PT with INR INR PTT (Actin FS) Fibrinogen > 500.0 H Anticoagulation Therapy Puncture Site ABG pH ABG pCO2 at Pt Temp ABG pO2 at Pt Temp ABG HCO3 ABG O2 Sat (Measured) ABG O2 Content ABG Base Excess Eliezer Test O2 Delivery Device Oxygen Flow Rate Vent Mode Vent Rate Mechanical Rate PEEP Pressure Support Vent Sodium 156 H Potassium 2.9 L* Chloride 130 H Carbon Dioxide 18 L Anion Gap 8 BUN 17 Creatinine 1.5 H Creat Clearance w eGFR 55.33 Random Glucose 162 H Calcium 8.2 L Phosphorus 1.1 L* Magnesium 1.9 Total Bilirubin 0.3 Direct Bilirubin 0.1 AST 130 H ALT 44 Alkaline Phosphatase 156 H Creatine Kinase Creatine Kinase Index CK-MB (CK-2) Troponin I Total Protein 4.9 L Albumin 1.7 L Total Amylase Lipase Urine Color Straw Urine Appearance Clear Urine pH 7.0 Ur Specific [place] 1.011 Urine Protein Negative Urine Glucose (UA) 1+ H Urine Ketones Negative Urine Blood 2+ H Urine Nitrite Negative Urine Bilirubin Negative Urine Urobilinogen Negative Ur Leukocyte Esterase 2+ H Urine WBC (Auto) 5 Urine RBC (Auto) 1 Urine Bacteria Rare Urine Mucus Rare Urine Osmolality Blood Type Antibody Screen 08/02/18 10:00 WBC RBC Hgb Hct MCV MCH MCHC RDW Plt Count MPV Absolute Neuts (auto) Total Counted Neutrophils % Neutrophils % (Manual) Band Neutrophils % Lymphocytes % Lymphocytes % (Manual) Monocytes % Monocytes % (Manual) Eosinophils % Eosinophils % (Manual) Basophils % Basophils % (Manual) Nucleated RBC % Smudge Cells Hypochromia Platelet Estimate Platelet Comment Basophilic Stippling Anisocytosis Macrocytosis PT with INR INR PTT (Actin FS) Fibrinogen Anticoagulation Therapy Puncture Site Left radial ABG pH 7.44 ABG pCO2 at Pt Temp 22.6 L D ABG pO2 at Pt Temp 163.0 H* ABG HCO3 15.1 L ABG O2 Sat (Measured) 99.4 H ABG O2 Content 13.8 L ABG Base Excess -7.5 L Eliezer Test Positive O2 Delivery Device Mech vent Oxygen Flow Rate 60% Vent Mode Vol/ac Vent Rate 22 Mechanical Rate Yes PEEP 5.0 Pressure Support Vent 350 Sodium Potassium Chloride Carbon Dioxide Anion Gap BUN Creatinine Creat Clearance w eGFR Random Glucose Calcium Phosphorus Magnesium Total Bilirubin Direct Bilirubin AST ALT Alkaline Phosphatase Creatine Kinase Creatine Kinase Index CK-MB (CK-2) Troponin I Total Protein Albumin Total Amylase Lipase Urine Color Urine Appearance Urine pH Ur Specific [place] Urine Protein Urine Glucose (UA) Urine Ketones Urine Blood Urine Nitrite Urine Bilirubin Urine Urobilinogen Ur Leukocyte Esterase Urine WBC (Auto) Urine RBC (Auto) Urine Bacteria Urine Mucus Urine Osmolality Blood Type Antibody Screen Microbiology 07/29/18 18:30 Sputum - Endotrachea Suction/Ventilator Gram Stain - Final 07/29/18 18:30 Sputum - Endotrachea Suction/Ventilator Sputum Culture - Final Diphtheroid/Corynebacterium 07/29/18 18:30 Urine - Urine Bates Urine Culture - Final NO GROWTH OBTAINED 07/25/18 13:36 Nasopharyngeal Swab Respiratory Virus (PCR) - Final 07/23/18 17:10 Blood - Peripheral Venous Blood Culture - Final NO GROWTH AFTER 5 DAYS INCUBATION 07/23/18 17:10 Blood - Peripheral Venous Blood Culture - Final NO GROWTH AFTER 5 DAYS INCUBATION 07/24/18 09:49 Urine - Urine Bates Legionella Antigen - Final 07/24/18 09:49 Urine - Urine Bates Streptococcus pneumoniae Antigen (M - Final 07/24/18 17:10 Sputum - Expectorated Gram Stain - Final 07/24/18 17:10 Sputum - Expectorated Sputum Culture - Final NORMAL RESPIRATORY KRISTIAN 07/23/18 17:51 Urine - Urine - Catheterized Urine Culture - Final Morganella Morganii Escherichia Coli Active Medications Acetylcysteine (Mucomyst 20 Oral / Inh Use Only*) 600 mg NEB RQID [facility] Last Admin: 08/02/18 08:13 Dose: 600 mg Albuterol Sulfate (Ventolin 0.083% Nebulizer Soln -) 1 amp NEB RQID [facility] Last Admin: 08/02/18 08:13 Dose: 1 amp Chlorhexidine Gluconate (Hibiclens For Decolonization -) 1 applic TP HS [facility] Last Admin: 08/01/18 22:18 Dose: 1 applic Clobazam (Onfi -) 15 mg GT BID [facility] Last Admin: 08/02/18 10:08 Dose: 15 mg Diazepam (Valium -) 5 mg GT DAILY [facility] Last Admin: 08/02/18 10:09 Dose: 5 mg Fludrocortisone Acetate (Florinef -) 0.05 mg GT DAILY [facility] Last Admin: 08/02/18 10:09 Dose: 0.05 mg Heparin Sodium (Porcine) (Heparin -) 5,000 unit SQ TID [facility] Last Admin: 08/02/18 06:15 Dose: 5,000 unit Hydrocortisone Sodium Succinate (Solu-Cortef -) 50 mg IVPB Q6H [facility] Last Admin: 08/02/18 06:14 Dose: 50 mg Doxycycline Hyclate 100 mg/ (Dextrose) 100 mls @ 100 mls/hr IVPB BID [facility] Last Admin: 08/01/18 22:27 Dose: 100 mls/hr Norepinephrine Bitartrate 8, (000 mcg/ Dextrose) 500 mls @ 18.75 mls/hr IV TITR [facility]; Protocol Last Titration: 08/02/18 03:00 Dose: 4 mcg/min, 15 mls/hr Piperacillin Sod/Tazobactam (Sod 3.375 gm/ Dextrose) 50 mls @ 100 mls/hr IVPB Q8H-IV [facility]; Protocol Last Admin: 08/02/18 10:08 Dose: 100 mls/hr Sodium Chloride (1/2 Normal Saline) 1,000 mls @ 75 mls/hr IV ASDIR [facility] Last Admin: 08/02/18 01:30 Dose: 75 mls/hr Vasopressin 50 units/ Sodium (Chloride) 100 mls @ 4 mls/hr IVPB ASDIR [facility]; Protocol Last Admin: 08/01/18 22:15 Dose: 2.4 units/hr, 4.8 mls/hr Potassium Phosphate 40 mm/ (Dextrose) 513.3333 mls @ 128.333 mls/hr IVPB ONCE ONE Stop: 08/02/18 10:59 Last Admin: 08/02/18 07:35 Dose: 128.333 mls/hr Dextrose (D5w -) 1,000 mls @ 100 mls/hr IV ASDIR [facility] Lactulose (Cephulac (Oral Use)) 20 gm GT BID [facility] Last Admin: 08/01/18 22:17 Dose: 20 gm Lorazepam (Ativan Injection -) 1 mg IVPUSH Q6H PRN PRN Reason: seizures Mupirocin (Bactroban Ointment (For Decolonization) -) 1 applic NS BID [facility] Stop: 08/03/18 21:59 Last Admin: 08/01/18 22:17 Dose: 1 applic Pantoprazole Sodium (Protonix Iv) 40 mg IVPUSH DAILY [facility] Last Admin: 08/02/18 10:09 Dose: 40 mg Simethicone (Mylicon Liquid -) 40 mg GT BID [facility] Last Admin: 08/02/18 10:09 Dose: 40 mg Sodium Bicarbonate (Sodium Bicarbonate -) 650 mg PO TID [facility] Last Admin: 08/02/18 06:12 Dose: 650 mg Topiramate (Topamax -) 100 mg GT BID [facility] Last Admin: 08/02/18 10:09 Dose: 100 mg ASSESSMENT/PLAN: 28 y/o M from [facility] with a PMHx of Seizure Disorder, Microcephaly, Profound MR, Paraplegia, Scoliosis presented to the ED with severe sepsis was transferred to the ICU after a Code 99 was called (07/29/18) for PEA s/p intubation #ID Septic Shock Hypothermia -Likely multifactorial, in part due to aspiration pneumonia -Hypothermic, Hypotensive on arrival in ICU; Improved since however remains Labile -WBC 22.4 this AM -Currently on Norepinephrine, Vasopressin -Sputum cx: Diphtheroid/Corynebacterium -Urine cx + for Morganelle Morgani, E. Coli -Blood cx NGTD -RSV Swab, urine antigen for Strep/legionella negative -Continue Jesus Alberto hugger -Continue Hydrocortisone 50 q6H, Fludrocortisone 0.05 Daily -Continue Zosyn, Doxycycline -ID (Dr. Bauer) consulted -Palliative care consulted #Cardiovascular S/P Cardiac arrest -Patient does not have a cardiac history -Troponin < 0.02 -ECHO: LV Systolic function is mildly reduced, mild global hypokinesis of the LV Hypotension due to Septic Shock -S/P 2L Fluid resuscitation -Pressures remain Labile, Continue Norepinephrine, Dopamine to maintain MAP >65 #Pulmonary Septic shock likely due to Aspiration Pneumonia -Continue Zosyn, Doxycycline -Intubated, Vent settings 22/350/6%/+5 -Monitor ABG #Neuro Hx of Seizure disorder, Severe MR Possibly ADELFO -Able to spontaneously breath on vent however no pupillary reflex, no response to pain stimuli -Not candidate for targeted temp management due to severe bradycardia -Continue Onfi, Valium, and Topamax -Ativan PRN -Monitor for breakthrough seizure -Neurology (Dr. Escobedo) Consulted, appreciate rec's -Hold all sedation to assess mental status #Renal HyperNatremia Hypokalemia Hypophosphatemia Elevated Cr -D5w @ 100 mls/hr -Continue Potassium Phosphate 40 mmol -Trend BMP, Phos #Endo DI -D5w @ 100 mls/hr -Continue Vasopressin -Monitor Urine Output #PPx -DVT: Heparin TID -GI: Protonix 40 Daily #FEN -D5w @ 100 mls/hr -Replete lytes PRN -NPO Dispo: Continue to monitor in ICU, Goals of care discussion with family as he likely has poor prognosis Visit type - Emergency Visit Emergency Visit: Yes ED Registration Date: 07/23/18 Care time: The patient presented to the Emergency Department on the above date and was hospitalized for further evaluation of their emergent condition. - New Patient This patient is new to me today: No - Critical Care Critical Care patient: Yes Total Critical Care Time (in minutes): 36 Critical Care Statement: The care of this patient involved high complexity decision making to prevent further life threatening deterioration of the patient 's condition and/or to evaluate & treat vital organ system(s) failure or risk of failure.
--- NOTE | 2018-08-02 10:43 | PN ---
Teaching Attending Note Name of Resident: Robina Trujillo ATTENDING PHYSICIAN STATEMENT I saw and evaluated the patient. I reviewed the resident's note and discussed the case with the resident. I agree with the resident's findings and plan as documented. SUBJECTIVE: Pt seen and examined in the ICU. Remains intubated, unresponsive. Developed DI overnight, started on vasopressin gtt. No cranial reflexes but with spontaneous respirations. OBJECTIVE: Vital Signs Period Temp Pulse Resp BP Sys/Saha Pulse Ox Last 24 Hr 96 F-99.5 F 82-102 18-22 107-152/54-92 100 Intake & Output 07/30/18 07/31/18 08/01/18 08/02/18 23:59 23:59 23:59 23:59 Intake Total 9706.8 3415.6 4449 1672.0 Output Total 2000 2800 5600 450 Balance 7706.8 615.6 -1151 1222.0 Weight 61.779 kg 61.6 kg 53.5 kg 63.1 kg Gen: intubated, unresponsive Heart: RRR Lung: decreased breath sounds at the bases Abd: soft, nontender Ext: no edema CBC, BMP 08/02/18 05:30 08/02/18 05:30 Active Medications Acetylcysteine (Mucomyst 20 Oral / Inh Use Only*) 600 mg NEB RQID [facility] Last Admin: 08/02/18 08:13 Dose: 600 mg Albuterol Sulfate (Ventolin 0.083% Nebulizer Soln -) 1 amp NEB RQID [facility] Last Admin: 08/02/18 08:13 Dose: 1 amp Chlorhexidine Gluconate (Hibiclens For Decolonization -) 1 applic TP HS [facility] Last Admin: 08/01/18 22:18 Dose: 1 applic Clobazam (Onfi -) 15 mg GT BID [facility] Last Admin: 08/02/18 10:08 Dose: 15 mg Diazepam (Valium -) 5 mg GT DAILY [facility] Last Admin: 08/02/18 10:09 Dose: 5 mg Fludrocortisone Acetate (Florinef -) 0.05 mg GT DAILY [facility] Last Admin: 08/02/18 10:09 Dose: 0.05 mg Heparin Sodium (Porcine) (Heparin -) 5,000 unit SQ TID [facility] Last Admin: 08/02/18 06:15 Dose: 5,000 unit Hydrocortisone Sodium Succinate (Solu-Cortef -) 50 mg IVPB Q6H [facility] Last Admin: 08/02/18 06:14 Dose: 50 mg Doxycycline Hyclate 100 mg/ (Dextrose) 100 mls @ 100 mls/hr IVPB BID [facility] Last Admin: 08/01/18 22:27 Dose: 100 mls/hr Norepinephrine Bitartrate 8, (000 mcg/ Dextrose) 500 mls @ 18.75 mls/hr IV TITR [facility]; Protocol Last Titration: 08/02/18 03:00 Dose: 4 mcg/min, 15 mls/hr Piperacillin Sod/Tazobactam (Sod 3.375 gm/ Dextrose) 50 mls @ 100 mls/hr IVPB Q8H-IV [facility]; Protocol Last Admin: 08/02/18 10:08 Dose: 100 mls/hr Sodium Chloride (1/2 Normal Saline) 1,000 mls @ 75 mls/hr IV ASDIR [facility] Last Admin: 08/02/18 01:30 Dose: 75 mls/hr Vasopressin 50 units/ Sodium (Chloride) 100 mls @ 4 mls/hr IVPB ASDIR [facility]; Protocol Last Admin: 08/01/18 22:15 Dose: 2.4 units/hr, 4.8 mls/hr Potassium Phosphate 40 mm/ (Dextrose) 513.3333 mls @ 128.333 mls/hr IVPB ONCE ONE Stop: 08/02/18 10:59 Last Admin: 08/02/18 07:35 Dose: 128.333 mls/hr Dextrose (D5w -) 1,000 mls @ 100 mls/hr IV ASDIR [facility] Lactulose (Cephulac (Oral Use)) 20 gm GT BID [facility] Last Admin: 08/01/18 22:17 Dose: 20 gm Lorazepam (Ativan Injection -) 1 mg IVPUSH Q6H PRN PRN Reason: seizures Mupirocin (Bactroban Ointment (For Decolonization) -) 1 applic NS BID [facility] Stop: 08/03/18 21:59 Last Admin: 08/01/18 22:17 Dose: 1 applic Pantoprazole Sodium (Protonix Iv) 40 mg IVPUSH DAILY [facility] Last Admin: 08/02/18 10:09 Dose: 40 mg Simethicone (Mylicon Liquid -) 40 mg GT BID [facility] Last Admin: 08/02/18 10:09 Dose: 40 mg Sodium Bicarbonate (Sodium Bicarbonate -) 650 mg PO TID [facility] Last Admin: 08/02/18 06:12 Dose: 650 mg Topiramate (Topamax -) 100 mg GT BID [facility] Last Admin: 08/02/18 10:09 Dose: 100 mg ASSESSMENT AND PLAN: s/p Cardiopulmonary Arrest Likely Anoxic Encephalopathy Diabetes Insipidus Pneumonia likely Aspiration Septic Shock +Troponins likely Demand Ischemia Metabolic Acidosis Mental Retardation Cerebral Palsy Seizure Disorder - continue antibiotics - taper levophed gtt to maintain MAP >65 - continue stress dose steroids - increase free water - continue vasopressin - monitor urine output, creatinine - bicarb - monitor ABG - hold all sedation to assess mental status - not a candidate for weaning at this time - DVT/GI prophylaxis - poor overall prognosis - continue discussions regarding goals of care, advanced directives - continue ICU monitoring critical care time spent in reviewing chart, evaluating patient and formulating plan 35 min
[2018-08-02 10:46] LABS: ANISOCYTOSIS 2+; MACROCYTOSIS 2+; PLATELET ESTIMATE ADEQUATE
[2018-08-02] MEDS: DEXTROSE 5%-WATER - 1,000 ML IV SCH (11:27)
[2018-08-02] MEDS: DOXYCYCLINE INJECTION 100 MG in DEXTROSE 5%-WATER - 100 ML IVPB SCH ×2 (11:27→22:06)
[2018-08-02 13:48] LABS: BASO % 0.1 % (0-2.0); HEMATOCRIT 28.5 % (35.4-49); HEMOGLOBIN 9.3 GM/dL (11.7-16.9); MCH 34.3 pg (25.7-33.7); MCHC 32.7 g/dl (32.0-35.9); MEAN CELL VOLUME 104.7 fl (80-96); MONO % 1.8 % (3.8-10.2); NEUT % 90.1 % (42.8-82.8); PLATELET COUNT 262 K/MM3 (134-434); RBC 2.72 M/mm3 (4.00-5.60); RDW 15.1 % (11.9-15.9); WHITE BLOOD COUNT 22.7 K/mm3 (4.0-10.0)
[2018-08-02 14:16] LABS: INR 1.08 (0.83-1.09); PROTHROMBIN TIME (PATIENT) 12.7 SEC (9.7-13.0)
[2018-08-02 14:18] LABS: ALBUMIN 1.8 g/dl (3.4-5.0); ALK PHOS 173 U/L (45-117); ANION GAP 12 MMOL/L (8-16); BILIRUBIN,DIRECT 0.1 mg/dL (0.0-0.2); BILIRUBIN,TOTAL 0.3 mg/dL (0.2-1); BLOOD UREA NITROGEN 19 mg/dL (7-18); CHLORIDE 125 mmol/L (98-107); CO2 17 mmol/L (21-32); CREATININE 1.5 mg/dL (0.55-1.3); GLUCOSE,RANDOM 210 mg/dL (74-106); MAGNESIUM 1.8 mg/dL (1.8-2.4); PHOSPHOROUS 4.4 mg/dL (2.5-4.9); POTASSIUM 3.4 mmol/L (3.5-5.1); SGOT/AST 162 U/L (15-37); SGPT/ALT 47 U/L (13-61); SODIUM 154 mmol/L (136-145); TOT PROT 5.2 g/dl (6.4-8.2)
--- NOTE | 2018-08-02 14:43 | PN ---
Physical Exam: SUBJECTIVE: Patient seen and examined no change in deep coma and going for ct head today OBJECTIVE: Vital Signs Period Temp Pulse Resp BP Sys/Saha Pulse Ox Last 24 Hr 96 F-99.5 F 79-94 16-22 107-156/54-98 100-100 GENERAL: The patient in deep coma HEAD: Normal with no signs of trauma. NECK: Trachea midline, full range of motion, supple. LUNGS: Breath sounds equal, clear to auscultation bilaterally, no wheezes, no crackles, no accessory muscle use. HEART: Regular rate and rhythm, EXTREMITIES: 2+ pulses, warm, well-perfused, no edema. NEUROLOGICAL: deep coma Laboratory Results - last 24 hr 08/01/18 08/01/18 08/01/18 16:00 16:00 16:00 WBC 21.6 H RBC 2.95 L Hgb 10.2 L Hct 31.3 L MCV 106.3 H MCH 34.6 H MCHC 32.5 RDW 14.9 Plt Count 296 MPV 8.0 Absolute Neuts (auto) 19.6 H Total Counted Neutrophils % 90.5 H Neutrophils % (Manual) 89.0 H Band Neutrophils % 3.0 Lymphocytes % 5.8 L D Lymphocytes % (Manual) 8.0 Monocytes % 3.6 L Monocytes % (Manual) 0 L D Eosinophils % 0.0 Eosinophils % (Manual) 0.0 Basophils % 0.1 Basophils % (Manual) 0.0 Nucleated RBC % 0 Smudge Cells Hypochromia Platelet Estimate Adequate Platelet Comment Basophilic Stippling Rare Anisocytosis Macrocytosis 2+ PT with INR 12.40 INR 1.05 PTT (Actin FS) 33.9 Fibrinogen > 500.0 H Anticoagulation Therapy Puncture Site ABG pH ABG pCO2 at Pt Temp ABG pO2 at Pt Temp ABG HCO3 ABG O2 Sat (Measured) ABG O2 Content ABG Base Excess Eliezer Test O2 Delivery Device Oxygen Flow Rate Vent Mode Vent Rate Mechanical Rate PEEP Pressure Support Vent Sodium Potassium Chloride Carbon Dioxide Anion Gap BUN Creatinine Creat Clearance w eGFR Random Glucose Calcium Phosphorus Magnesium Total Bilirubin Direct Bilirubin AST ALT Alkaline Phosphatase Total Protein Albumin Urine Color Urine Appearance Urine pH Ur Specific [place] Urine Protein Urine Glucose (UA) Urine Ketones Urine Blood Urine Nitrite Urine Bilirubin Urine Urobilinogen Ur Leukocyte Esterase Urine WBC (Auto) Urine RBC (Auto) Urine Bacteria Urine Mucus Blood Type Antibody Screen 08/01/18 08/01/18 08/01/18 16:00 19:30 21:20 WBC RBC Hgb Hct MCV MCH MCHC RDW Plt Count MPV Absolute Neuts (auto) Total Counted Neutrophils % Neutrophils % (Manual) Band Neutrophils % Lymphocytes % Lymphocytes % (Manual) Monocytes % Monocytes % (Manual) Eosinophils % Eosinophils % (Manual) Basophils % Basophils % (Manual) Nucleated RBC % Smudge Cells Hypochromia Platelet Estimate Platelet Comment Basophilic Stippling Anisocytosis Macrocytosis PT with INR INR PTT (Actin FS) Fibrinogen Anticoagulation Therapy No Result Required. Puncture Site Left radial ABG pH 7.24 L* ABG pCO2 at Pt Temp 41.8 ABG pO2 at Pt Temp 127.0 H ABG HCO3 17.2 L ABG O2 Sat (Measured) 98.4 ABG O2 Content 16.2 ABG Base Excess -9.3 L Eliezer Test Positive O2 Delivery Device No Result Required. Oxygen Flow Rate Yes Vent Mode No Result Required. Vent Rate 22 Mechanical Rate No Result Required. PEEP 5.0 Pressure Support Vent 280 Sodium 164 H* Potassium 3.0 L Chloride 133 H Carbon Dioxide 19 L Anion Gap 11 BUN 19 H Creatinine 1.5 H Creat Clearance w eGFR 55.33 Random Glucose 139 H Calcium 7.9 L Phosphorus 2.4 L Magnesium 1.7 L Total Bilirubin 0.2 Direct Bilirubin 0.1 AST 117 H ALT 47 Alkaline Phosphatase 168 H Total Protein 5.0 L Albumin 1.7 L Urine Color Urine Appearance Urine pH Ur Specific [place] Urine Protein Urine Glucose (UA) Urine Ketones Urine Blood Urine Nitrite Urine Bilirubin Urine Urobilinogen Ur Leukocyte Esterase Urine WBC (Auto) Urine RBC (Auto) Urine Bacteria Urine Mucus Blood Type O POSITIVE Antibody Screen Negative 08/02/18 08/02/18 08/02/18 00:55 01:10 01:10 WBC 22.3 H RBC 2.89 L Hgb 9.9 L Hct 30.6 L MCV 106.2 H MCH 34.4 H MCHC 32.4 RDW 15.0 Plt Count 282 MPV 7.9 Absolute Neuts (auto) 20.2 H Total Counted 100 Neutrophils % 90.5 H Neutrophils % (Manual) 86.0 H Band Neutrophils % 5.0 Lymphocytes % 5.0 L Lymphocytes % (Manual) 6.0 L D Monocytes % 4.1 Monocytes % (Manual) 3 L D Eosinophils % 0.1 D Eosinophils % (Manual) Basophils % 0.3 Basophils % (Manual) Nucleated RBC % 0 Smudge Cells Few Hypochromia 1+ Platelet Estimate Adequate Platelet Comment No clumping noted Basophilic Stippling Anisocytosis 2+ Macrocytosis 2+ PT with INR 12.50 INR 1.06 PTT (Actin FS) 33.0 Fibrinogen > 500.0 H Anticoagulation Therapy Puncture Site ABG pH ABG pCO2 at Pt Temp ABG pO2 at Pt Temp ABG HCO3 ABG O2 Sat (Measured) ABG O2 Content ABG Base Excess Eliezer Test O2 Delivery Device Oxygen Flow Rate Vent Mode Vent Rate Mechanical Rate PEEP Pressure Support Vent Sodium Potassium Chloride Carbon Dioxide Anion Gap BUN Creatinine Creat Clearance w eGFR Random Glucose Calcium Phosphorus Magnesium Total Bilirubin Direct Bilirubin AST ALT Alkaline Phosphatase Total Protein Albumin Urine Color Urine Appearance Urine pH Ur Specific [place] Urine Protein Urine Glucose (UA) Urine Ketones Urine Blood Urine Nitrite Urine Bilirubin Urine Urobilinogen Ur Leukocyte Esterase Urine WBC (Auto) Urine RBC (Auto) Urine Bacteria Urine Mucus Blood Type Antibody Screen 08/02/18 08/02/18 08/02/18 01:10 03:20 05:30 WBC 22.4 H RBC 2.68 L Hgb 9.2 L Hct 28.2 L MCV 105.2 H MCH 34.3 H MCHC 32.6 RDW 14.9 Plt Count 262 MPV 7.8 Absolute Neuts (auto) 20.2 H Total Counted Neutrophils % 90.4 H Neutrophils % (Manual) 86.0 H Band Neutrophils % 5.0 Lymphocytes % 6.0 L Lymphocytes % (Manual) 6.0 L Monocytes % 3.4 L Monocytes % (Manual) 3 L Eosinophils % 0.1 Eosinophils % (Manual) Basophils % 0.1 Basophils % (Manual) Nucleated RBC % 0 Smudge Cells Hypochromia 1+ Platelet Estimate Adequate Platelet Comment No clotting detected Basophilic Stippling Anisocytosis 2+ Macrocytosis 2+ PT with INR INR PTT (Actin FS) Fibrinogen Anticoagulation Therapy Puncture Site Left radial ABG pH 7.34 L ABG pCO2 at Pt Temp 31.1 L D ABG pO2 at Pt Temp 132.0 H ABG HCO3 16.3 L ABG O2 Sat (Measured) 99.0 H ABG O2 Content 12.3 L ABG Base Excess -8.1 L Eliezer Test Positive O2 Delivery Device Mech vent Oxygen Flow Rate 60% Vent Mode A/c Vent Rate 22 Mechanical Rate Yes PEEP 5.0 Pressure Support Vent 350 Sodium 160 H Potassium 3.2 L Chloride 134 H Carbon Dioxide 19 L Anion Gap 6 L BUN 17 Creatinine 1.5 H Creat Clearance w eGFR 55.33 Random Glucose 147 H Calcium 8.2 L Phosphorus 2.0 L Magnesium 1.9 Total Bilirubin 0.3 Direct Bilirubin 0.1 AST 129 H ALT 47 Alkaline Phosphatase 162 H Total Protein 5.0 L Albumin 1.8 L Urine Color Urine Appearance Urine pH Ur Specific [place] Urine Protein Urine Glucose (UA) Urine Ketones Urine Blood Urine Nitrite Urine Bilirubin Urine Urobilinogen Ur Leukocyte Esterase Urine WBC (Auto) Urine RBC (Auto) Urine Bacteria Urine Mucus Blood Type Antibody Screen 08/02/18 08/02/18 08/02/18 05:30 05:30 05:30 WBC RBC Hgb Hct MCV MCH MCHC RDW Plt Count MPV Absolute Neuts (auto) Total Counted Neutrophils % Neutrophils % (Manual) Band Neutrophils % Lymphocytes % Lymphocytes % (Manual) Monocytes % Monocytes % (Manual) Eosinophils % Eosinophils % (Manual) Basophils % Basophils % (Manual) Nucleated RBC % Smudge Cells Hypochromia Platelet Estimate Platelet Comment Basophilic Stippling Anisocytosis Macrocytosis PT with INR 12.70 INR 1.08 PTT (Actin FS) 33.7 Fibrinogen > 500.0 H Anticoagulation Therapy Puncture Site ABG pH ABG pCO2 at Pt Temp ABG pO2 at Pt Temp ABG HCO3 ABG O2 Sat (Measured) ABG O2 Content ABG Base Excess Eliezer Test O2 Delivery Device Oxygen Flow Rate Vent Mode Vent Rate Mechanical Rate PEEP Pressure Support Vent Sodium 156 H Potassium 2.9 L* Chloride 130 H Carbon Dioxide 18 L Anion Gap 8 BUN 17 Creatinine 1.5 H Creat Clearance w eGFR 55.33 Random Glucose 162 H Calcium 8.2 L Phosphorus 1.1 L* Magnesium 1.9 Total Bilirubin 0.3 Direct Bilirubin 0.1 AST 130 H ALT 44 Alkaline Phosphatase 156 H Total Protein 4.9 L Albumin 1.7 L Urine Color Urine Appearance Urine pH Ur Specific [place] Urine Protein Urine Glucose (UA) Urine Ketones Urine Blood Urine Nitrite Urine Bilirubin Urine Urobilinogen Ur Leukocyte Esterase Urine WBC (Auto) Urine RBC (Auto) Urine Bacteria Urine Mucus Blood Type Antibody Screen 08/02/18 08/02/18 08/02/18 06:30 10:00 13:30 WBC 22.7 H RBC 2.72 L Hgb 9.3 L Hct 28.5 L MCV 104.7 H MCH 34.3 H MCHC 32.7 RDW 15.1 Plt Count 262 MPV 8.0 Absolute Neuts (auto) 20.5 H Total Counted Neutrophils % 90.1 H Neutrophils % (Manual) Band Neutrophils % Lymphocytes % 8.0 D Lymphocytes % (Manual) Monocytes % 1.8 L Monocytes % (Manual) Eosinophils % 0.0 D Eosinophils % (Manual) Basophils % 0.1 Basophils % (Manual) Nucleated RBC % 0 Smudge Cells Hypochromia Platelet Estimate Platelet Comment Basophilic Stippling Anisocytosis Macrocytosis PT with INR INR PTT (Actin FS) Fibrinogen Anticoagulation Therapy Puncture Site Left radial ABG pH 7.44 ABG pCO2 at Pt Temp 22.6 L D ABG pO2 at Pt Temp 163.0 H* ABG HCO3 15.1 L ABG O2 Sat (Measured) 99.4 H ABG O2 Content 13.8 L ABG Base Excess -7.5 L Eliezer Test Positive O2 Delivery Device Mech vent Oxygen Flow Rate 60% Vent Mode Vol/ac Vent Rate 22 Mechanical Rate Yes PEEP 5.0 Pressure Support Vent 350 Sodium Potassium Chloride Carbon Dioxide Anion Gap BUN Creatinine Creat Clearance w eGFR Random Glucose Calcium Phosphorus Magnesium Total Bilirubin Direct Bilirubin AST ALT Alkaline Phosphatase Total Protein Albumin Urine Color Straw Urine Appearance Clear Urine pH 7.0 Ur Specific [place] 1.011 Urine Protein Negative Urine Glucose (UA) 1+ H Urine Ketones Negative Urine Blood 2+ H Urine Nitrite Negative Urine Bilirubin Negative Urine Urobilinogen Negative Ur Leukocyte Esterase 2+ H Urine WBC (Auto) 5 Urine RBC (Auto) 1 Urine Bacteria Rare Urine Mucus Rare Blood Type Antibody Screen 08/02/18 08/02/18 08/02/18 13:30 13:30 13:30 WBC RBC Hgb Hct MCV MCH MCHC RDW Plt Count MPV Absolute Neuts (auto) Total Counted Neutrophils % Neutrophils % (Manual) Band Neutrophils % Lymphocytes % Lymphocytes % (Manual) Monocytes % Monocytes % (Manual) Eosinophils % Eosinophils % (Manual) Basophils % Basophils % (Manual) Nucleated RBC % Smudge Cells Hypochromia Platelet Estimate Platelet Comment Basophilic Stippling Anisocytosis Macrocytosis PT with INR 12.70 INR 1.08 PTT (Actin FS) 31.0 Fibrinogen > 500.0 H Anticoagulation Therapy Puncture Site ABG pH ABG pCO2 at Pt Temp ABG pO2 at Pt Temp ABG HCO3 ABG O2 Sat (Measured) ABG O2 Content ABG Base Excess Eliezer Test O2 Delivery Device Oxygen Flow Rate Vent Mode Vent Rate Mechanical Rate PEEP Pressure Support Vent Sodium 154 H Potassium 3.4 L Chloride 125 H Carbon Dioxide 17 L Anion Gap 12 BUN 19 H Creatinine 1.5 H Creat Clearance w eGFR 55.33 Random Glucose 210 H Calcium 8.0 L Phosphorus 4.4 Magnesium 1.8 Total Bilirubin 0.3 Direct Bilirubin 0.1 AST 162 H ALT 47 Alkaline Phosphatase 173 H Total Protein 5.2 L Albumin 1.8 L Urine Color Urine Appearance Urine pH Ur Specific [place] Urine Protein Urine Glucose (UA) Urine Ketones Urine Blood Urine Nitrite Urine Bilirubin Urine Urobilinogen Ur Leukocyte Esterase Urine WBC (Auto) Urine RBC (Auto) Urine Bacteria Urine Mucus Blood Type Antibody Screen Active Medications Generic Name Dose Route Start Last Admin Trade Name Freq PRN Reason Stop Dose Admin Acetylcysteine 600 mg 07/29/18 20:00 08/02/18 12:47 Mucomyst 20 Oral / Inh Use Only* NEB 600 mg RQID JULIO Administration Albuterol Sulfate 1 amp 07/29/18 20:00 08/02/18 12:47 Ventolin 0.083% Nebulizer Soln - NEB 1 amp RQID JULIO Administration Chlorhexidine Gluconate 1 applic 07/29/18 22:00 08/01/18 22:18 Hibiclens For Decolonization - TP 1 applic HS JULIO Administration Clobazam 15 mg 07/30/18 22:00 08/02/18 10:08 Onfi - GT 15 mg BID JULIO Administration Diazepam 5 mg 07/31/18 10:00 08/02/18 10:09 Valium - GT 5 mg DAILY JULIO Administration Fludrocortisone Acetate 0.05 mg 07/30/18 12:00 08/02/18 10:09 Florinef - GT 0.05 mg DAILY JULIO Administration Heparin Sodium (Porcine) 5,000 unit 07/30/18 14:00 08/02/18 06:15 Heparin - SQ 5,000 unit TID JULIO Administration Hydrocortisone Sodium Succinate 50 mg 07/30/18 12:30 08/02/18 06:14 Solu-Cortef - IVPB 50 mg Q6H JULIO Administration Doxycycline Hyclate 100 mg/ 100 mls @ 100 mls/hr 07/29/18 22:00 08/02/18 11: 27 Dextrose IVPB 100 mls/hr BID JULIO Administration Norepinephrine Bitartrate 8, 500 mls @ 18.75 mls/hr 07/30/18 01:30 08/02/18 03:00 000 mcg/ Dextrose IV 4 mcg/min TITR JULIO 15 mls/hr Titration Protocol 5 MCG/MIN Piperacillin Sod/Tazobactam 50 mls @ 100 mls/hr 07/30/18 18:00 08/02/18 10:08 Sod 3.375 gm/ Dextrose IVPB 100 mls/hr Q8H-IV JULIO Administration Protocol Sodium Chloride 1,000 mls @ 75 mls/hr 08/01/18 00:45 08/02/18 01:30 1/2 Normal Saline IV 75 mls/hr ASDIR JULIO Administration Vasopressin 50 units/ Sodium 100 mls @ 4 mls/hr 08/01/18 20:30 08/01/18 22:15 Chloride IVPB 2.4 units/hr ASDIR JULIO 4.8 mls/hr Administration Protocol 2 UNITS/HR Dextrose 1,000 mls @ 100 mls/hr 08/02/18 10:30 08/02/18 11:27 D5w - IV 100 mls/hr ASDIR JULIO Administration Lactulose 20 gm 07/30/18 22:00 08/01/18 22:17 Cephulac (Oral Use) GT 20 gm BID JULIO Administration Mupirocin 1 applic 07/29/18 22:00 08/01/18 22:17 Bactroban Ointment (For Decolonization) - NS 08/03/18 21:59 1 applic BID JULIO Administration Pantoprazole Sodium 40 mg 07/31/18 10:00 08/02/18 10:09 Protonix Iv IVPUSH 40 mg DAILY JULIO Administration Simethicone 40 mg 07/30/18 22:00 08/02/18 10:09 Mylicon Liquid - GT 40 mg BID JULIO Administration Sodium Bicarbonate 650 mg 07/31/18 14:00 08/02/18 06:12 Sodium Bicarbonate - PO 650 mg TID JULIO Administration Topiramate 100 mg 07/30/18 22:00 08/02/18 10:09 Topamax - GT 100 mg BID JULIO Administration ASSESSMENT/PLAN: SSESSMENT AND PLAN: s/p Cardiopulmonary Arrest Likely Anoxic Encephalopathy Pneumonia likely Aspiration Septic Shock Mental Retardation Cerebral Palsy Seizure Disorder - mother has signed the papers for organ procurement - continue antibiotics - f/u cultures - continue stress dose steroids - IVF - not a candidate for weaning at this time - continue discussions regarding goals of care, advanced directives - continue ICU monitoring
[2018-08-02 15:41] LABS: ARTERIAL BLD GAS O2 SATURATION 99.1 % (90-98.9); ARTERIAL BLOOD GAS BASE EXCESS -7.5 meq/l (-2-2); ARTERIAL BLOOD GAS PCO2 25.1 mmHg (35-45); ARTERIAL BLOOD GAS pH 7.41 (7.35-7.45)
[2018-08-02 15:42] LABS: ANISOCYTOSIS 1+; MACROCYTOSIS 1+; PLATELET ESTIMATE NORMAL
[2018-08-02 15:42] LABS: ALLENS TEST POSITIVE
[2018-08-02 16:11] LABS: AMYLASE 64 U/L (25-115); LIPASE 1129 U/L (73-393)
[2018-08-02 16:11] LABS: AMYLASE 66 U/L (25-115); LIPASE 1110 U/L (73-393)
[2018-08-02 16:11] LABS: AMYLASE 64 U/L (25-115); LIPASE 1031 U/L (73-393)
[2018-08-02] MEDS ORDERED: VASOPRESSIN 20 UNITS/ML VIAL IV ONE (18:59)
[2018-08-02 19:02] LABS: BASO % 0.2 % (0-2.0); EOS % 0.1 % (0-4.5); HEMATOCRIT 22.8 % (35.4-49); HEMOGLOBIN 7.6 GM/dL (11.7-16.9); LYMPH % 10.9 % (8-40); MCH 34.4 pg (25.7-33.7); MCHC 33.1 g/dl (32.0-35.9); MONO % 4.4 % (3.8-10.2); NEUT % 84.4 % (42.8-82.8); PLATELET COUNT 220 K/MM3 (134-434); RDW 15.1 % (11.9-15.9); WHITE BLOOD COUNT 17.6 K/mm3 (4.0-10.0)
[2018-08-02 19:20] LABS: INR 1.12 (0.83-1.09); PROTHROMBIN TIME (PATIENT) 13.2 SEC (9.7-13.0)
[2018-08-02 19:23] LABS: ACTIVATED PTT 34.4 SECONDS (25.2-36.5)
[2018-08-02 19:46] LABS: ALBUMIN 1.4 g/dl (3.4-5.0); ALK PHOS 145 U/L (45-117); AMYLASE 50 U/L (25-115); ANION GAP 11 MMOL/L (8-16); BILIRUBIN,DIRECT 0.1 mg/dL (0.0-0.2); BILIRUBIN,TOTAL 0.3 mg/dL (0.2-1); BLOOD UREA NITROGEN 19 mg/dL (7-18); CALCIUM 7.1 mg/dL (8.5-10.1); CHLORIDE 127 mmol/L (98-107); CO2 18 mmol/L (21-32); CREATININE 1.3 mg/dL (0.55-1.3); GLUCOSE,RANDOM 209 mg/dL (74-106); LIPASE 972 U/L (73-393); MAGNESIUM 1.4 mg/dL (1.8-2.4); PHOSPHOROUS 3.6 mg/dL (2.5-4.9); POTASSIUM 3.2 mmol/L (3.5-5.1); SGOT/AST 138 U/L (15-37); SGPT/ALT 37 U/L (13-61); SODIUM 156 mmol/L (136-145); TOT PROT 4.2 g/dl (6.4-8.2)
[2018-08-02] MEDS ORDERED: MAGNESIUM SULF 50% (8.12 MEQ/2 ML-1 GM VIAL) IVPB ONE (21:10)
[2018-08-02] MEDS: KCL 10 MEQ IVPB 10 MEQ/100 ML INFUS.BAG IVPB SCH ×2 (21:20→22:00)
[2018-08-02] MEDS: VASOPRESSIN 50 UNITS in SODIUM CHLORIDE 97.5 ML IVPB SCH (21:58)
[2018-08-02] MEDS: MUPIROCIN 2% TOPICAL OINTMENT FOR DECOLONIZATION NS SCH (22:00)
[2018-08-02] MEDS: CHLORHEXIDINE GLUCONATE 4% CLEANSER FOR DECOLONIZATION TP SCH (22:01)
[2018-08-03 00:38] LABS: BASO % 0.6 % (0-2.0); EOS % 0.1 % (0-4.5); HEMATOCRIT 21.4 % (35.4-49); LYMPH % 12.5 % (8-40); MCH 34.2 pg (25.7-33.7); MCHC 32.9 g/dl (32.0-35.9); MEAN CELL VOLUME 103.9 fl (80-96); MONO % 4.5 % (3.8-10.2); NEUT % 82.3 % (42.8-82.8); PLATELET COUNT 222 K/MM3 (134-434); RBC 2.06 M/mm3 (4.00-5.60); RDW 14.8 % (11.9-15.9); WHITE BLOOD COUNT 14.9 K/mm3 (4.0-10.0)
[2018-08-03 00:48] LABS: INR 1.17 (0.83-1.09); PROTHROMBIN TIME (PATIENT) 13.8 SEC (9.7-13.0)
[2018-08-03 00:51] LABS: ACTIVATED PTT 52.9 SECONDS (25.2-36.5)
[2018-08-03 01:00] LABS: ALBUMIN 1.4 g/dl (3.4-5.0); ALK PHOS 144 U/L (45-117); ANION GAP 9 MMOL/L (8-16); BILIRUBIN,DIRECT 0.1 mg/dL (0.0-0.2); BILIRUBIN,TOTAL 0.2 mg/dL (0.2-1); BLOOD UREA NITROGEN 21 mg/dL (7-18); CALCIUM 7.3 mg/dL (8.5-10.1); CHLORIDE 125 mmol/L (98-107); CO2 18 mmol/L (21-32); CREATININE 1.3 mg/dL (0.55-1.3); GLUCOSE,RANDOM 185 mg/dL (74-106); MAGNESIUM 2.4 mg/dL (1.8-2.4); PHOSPHOROUS 3.7 mg/dL (2.5-4.9); POTASSIUM 3.7 mmol/L (3.5-5.1); SGOT/AST 132 U/L (15-37); SGPT/ALT 37 U/L (13-61); SODIUM 152 mmol/L (136-145); TOT PROT 4.2 g/dl (6.4-8.2)
[2018-08-03] MEDS ORDERED: PIPERACILLIN/TAZOBACTAM 3.375 GM VIAL IVPB ONE ×2 (01:48→08:13)
[2018-08-03 02:07] LABS: ALLENS TEST POSITIVE; ARTERIAL BLD GAS O2 SATURATION 98.3 % (90-98.9); ARTERIAL BLOOD GAS BASE EXCESS -6.6 meq/l (-2-2); ARTERIAL BLOOD GAS PCO2 25.7 mmHg (35-45); ARTERIAL BLOOD GAS pH 7.43 (7.35-7.45)
[2018-08-03] MEDS: PIPERACILLIN/TAZOB 3.375 GM 3.375 GM in DEXTROSE 5%-WATER - 50 ML IVPB SCH ×2 (02:08→09:32)
[2018-08-03] MEDS: HYDROCORTISONE SOD SUCCINATE 100 MG/2 ML VIAL IVPB SCH ×2 (02:09→08:26)
[2018-08-03] MEDS: NOREPINEPHRINE BITARTRATE 8,000 MCG in DEXTROSE 5%-WATER - 492 ML IV SCH (02:10)
[2018-08-03 02:27] LABS: PLATELET ESTIMATE ADEQUATE
[2018-08-03 05:57] LABS: BASO % 0.2 % (0-2.0); HEMATOCRIT 20.9 % (35.4-49); HEMOGLOBIN 7.1 GM/dL (11.7-16.9); LYMPH % 11.2 % (8-40); MCH 35.1 pg (25.7-33.7); MCHC 33.7 g/dl (32.0-35.9); MEAN PLT VOLUME 8.2 fl (7.5-11.1); MONO % 8.2 % (3.8-10.2); NEUT % 80.4 % (42.8-82.8); PLATELET COUNT 226 K/MM3 (134-434); RBC 2.01 M/mm3 (4.00-5.60); RDW 15.1 % (11.9-15.9)
[2018-08-03 06:12] LABS: INR 1.16 (0.83-1.09); PROTHROMBIN TIME (PATIENT) 13.7 SEC (9.7-13.0)
[2018-08-03 06:28] LABS: ALBUMIN 1.4 g/dl (3.4-5.0); ALK PHOS 140 U/L (45-117); ANION GAP 9 MMOL/L (8-16); BILIRUBIN,DIRECT 0.1 mg/dL (0.0-0.2); BILIRUBIN,TOTAL 0.2 mg/dL (0.2-1); BLOOD UREA NITROGEN 23 mg/dL (7-18); CALCIUM 7.1 mg/dL (8.5-10.1); CHLORIDE 123 mmol/L (98-107); CO2 19 mmol/L (21-32); CREATININE 1.3 mg/dL (0.55-1.3); GLUCOSE,RANDOM 158 mg/dL (74-106); MAGNESIUM 1.6 mg/dL (1.8-2.4); PHOSPHOROUS 3.4 mg/dL (2.5-4.9); POTASSIUM 3.7 mmol/L (3.5-5.1); SGOT/AST 131 U/L (15-37); SGPT/ALT 36 U/L (13-61); SODIUM 151 mmol/L (136-145); TOT PROT 4.3 g/dl (6.4-8.2)
[2018-08-03] MEDS: SODIUM BICARBONATE 650 MG TABLET PO SCH (06:55)
[2018-08-03] MEDS: HEPARIN NA (PORCINE) 5,000 UNITS/ML 1ML VIAL SQ SCH (06:55)
[2018-08-03] MEDS: ALBUTEROL SO4 0.083% IH SOL 2.5 MG/3 ML VIAL.NEB. NEB SCH ×2 (07:40→12:45)
[2018-08-03] MEDS: ACETYLCYSTEINE 20% 200MG/ML 4 ML VIAL *FOR ORAL / INH USE ONLY NEB SCH ×2 (07:40→12:45)
[2018-08-03 07:56] LABS: URINE APPEARANCE CLEAR; URINE BILIRUBIN NEGATIVE (<2.0 mg/dL); URINE COLOR YELLOW; URINE GLUCOSE (UA) NEGATIVE (NEGATIVE); URINE KETONE NEGATIVE (NEGATIVE); URINE LEUK ESTERASE NEGATIVE (NEGATIVE); URINE NITRITE NEGATIVE (NEGATIVE); URINE PROTEIN 1+ (NEGATIVE); URINE UROBILINOGEN NEGATIVE mg/dL (0.2-1.0)
[2018-08-03 08:12] LABS: URINE MUCUS RARE
[2018-08-03] MEDS ORDERED: DEXTROSE 5%-WATER - 50 ML IVPB ONE (08:13)
[2018-08-03] MEDS ORDERED: PT OWN MED DRAWER 7, Y5N ONE ×2 (08:13→09:44)
[2018-08-03 08:32] LABS: ARTERIAL BLD GAS O2 SATURATION 96.9 % (90-98.9); ARTERIAL BLOOD GAS BASE EXCESS -6.1 meq/l (-2-2); ARTERIAL BLOOD GAS PCO2 25.4 mmHg (35-45); ARTERIAL BLOOD GAS PO2 82.3 mmHg (80-100); ARTERIAL BLOOD GAS pH 7.44 (7.35-7.45)
[2018-08-03 08:39] LABS: ALLENS TEST POSITIVE
[2018-08-03] MEDS: DOXYCYCLINE INJECTION 100 MG in DEXTROSE 5%-WATER - 100 ML IVPB SCH (09:32)
[2018-08-03] MEDS: PANTOPRAZOLE SODIUM 40 MG VIAL IVPUSH SCH (09:32)
[2018-08-03] MEDS: LACTULOSE 20 GM/30 ML UDC (FOR ORAL USE ONLY) GT SCH (09:33)
[2018-08-03] MEDS: TOPIRAMATE 100 MG TABLET GT SCH (09:33)
[2018-08-03] MEDS: diazePAM 5 MG TABLET GT SCH (09:33)
[2018-08-03] MEDS: cloBAZam 10 MG TABLET GT SCH (09:34)
[2018-08-03] MEDS: SIMETHICONE 40 MG/0.6 ML BOTTLE GT SCH (09:35)
[2018-08-03] MEDS: MUPIROCIN 2% TOPICAL OINTMENT FOR DECOLONIZATION NS SCH (09:35)
[2018-08-03] MEDS: FLUDROCORTISONE ACETATE 0.1 MG TABLET (FP) GT SCH (09:45)
[2018-08-03] MEDS ORDERED: morphine SULFATE 4 MG/ML VIAL ONE (11:29)
[2018-08-03] MEDS ORDERED: LORazepam 2 MG/ML SDV VIAL IVPUSH PRN (11:36)
--- NOTE | 2018-08-03 11:39 | PN ---
Teaching Attending Note Name of Resident: Robina Trujillo ATTENDING PHYSICIAN STATEMENT I saw and evaluated the patient. I reviewed the resident's note and discussed the case with the resident. I agree with the resident's findings and plan as documented. SUBJECTIVE: Pt seen and examined in the ICU. Remains intubated, unresponsive off sedation. + spontaneous breaths. Off pressor support. OBJECTIVE: Vital Signs Period Temp Pulse Resp BP Sys/Saha Pulse Ox Last 24 Hr 95.5 F-98 F 67-92 16-22 93-146/60-103 90-100 Intake & Output 07/31/18 08/01/18 08/02/18 08/03/18 23:59 23:59 23:59 23:59 Intake Total 3415.6 4449 2429.6 1214.1 Output Total 2800 5600 1475 150 Balance 615.6 -1151 954.6 1064.1 Weight 61.6 kg 53.5 kg 63.1 kg 60.9 kg Gen: intubated, unresponsive Heart: RRR Lung: decreased breath sounds at the bases Abd: soft, nontender Ext: no edema CBC, BMP 08/03/18 05:30 08/03/18 05:30 Active Medications Acetylcysteine (Mucomyst 20 Oral / Inh Use Only*) 600 mg NEB RQID [facility] Last Admin: 08/03/18 07:40 Dose: 600 mg Albuterol Sulfate (Ventolin 0.083% Nebulizer Soln -) 1 amp NEB RQID [facility] Last Admin: 08/03/18 07:40 Dose: 1 amp Chlorhexidine Gluconate (Hibiclens For Decolonization -) 1 applic TP HS [facility] Last Admin: 08/02/18 22:01 Dose: 1 applic Clobazam (Onfi -) 15 mg GT BID [facility] Last Admin: 08/03/18 09:34 Dose: 15 mg Diazepam (Valium -) 5 mg GT DAILY [facility] Last Admin: 08/03/18 09:33 Dose: 5 mg Fludrocortisone Acetate (Florinef -) 0.05 mg GT DAILY [facility] Last Admin: 08/03/18 09:45 Dose: 0.05 mg Heparin Sodium (Porcine) (Heparin -) 5,000 unit SQ TID [facility] Last Admin: 08/03/18 06:55 Dose: 5,000 unit Heparin Sodium (Porcine) (Heparin -) 30,000 unit IVPUSH ONCE ONE Stop: 08/03/18 10:01 Hydrocortisone Sodium Succinate (Solu-Cortef -) 50 mg IVPB Q6H [facility] Last Admin: 08/03/18 08:26 Dose: 50 mg Doxycycline Hyclate 100 mg/ (Dextrose) 100 mls @ 100 mls/hr IVPB BID [facility] Last Admin: 08/03/18 09:32 Dose: 100 mls/hr Norepinephrine Bitartrate 8, (000 mcg/ Dextrose) 500 mls @ 18.75 mls/hr IV TITR JULIO; Protocol Last Admin: 08/03/18 02:10 Dose: Not Given Piperacillin Sod/Tazobactam (Sod 3.375 gm/ Dextrose) 50 mls @ 100 mls/hr IVPB Q8H-IV JULIO; Protocol Last Admin: 08/03/18 09:32 Dose: 100 mls/hr Vasopressin 50 units/ Sodium (Chloride) 100 mls @ 4 mls/hr IVPB ASDIR JULIO; Protocol Last Admin: 08/02/18 21:58 Dose: 2.4 units/hr, 4.8 mls/hr Dextrose (D5w -) 1,000 mls @ 100 mls/hr IV ASDIR JULIO Last Admin: 08/02/18 11:27 Dose: 100 mls/hr Lactulose (Cephulac (Oral Use)) 20 gm GT BID [facility] Last Admin: 08/03/18 09:33 Dose: 20 gm Mupirocin (Bactroban Ointment (For Decolonization) -) 1 applic NS BID [facility] Stop: 08/03/18 21:59 Last Admin: 08/03/18 09:35 Dose: 1 applic Pantoprazole Sodium (Protonix Iv) 40 mg IVPUSH DAILY [facility] Last Admin: 08/03/18 09:32 Dose: 40 mg Simethicone (Mylicon Liquid -) 40 mg GT BID [facility] Last Admin: 08/03/18 09:35 Dose: 40 mg Sodium Bicarbonate (Sodium Bicarbonate -) 650 mg PO TID [facility] Last Admin: 08/03/18 06:55 Dose: 650 mg Topiramate (Topamax -) 100 mg GT BID [facility] Last Admin: 08/03/18 09:33 Dose: 100 mg ASSESSMENT AND PLAN: s/p Cardiopulmonary Arrest Likely Anoxic Encephalopathy Diabetes Insipidus Pneumonia likely Aspiration Septic Shock +Troponins likely Demand Ischemia Metabolic Acidosis Mental Retardation Cerebral Palsy Seizure Disorder - continue antibiotics - off levophed gtt, maintain MAP >65 - can taper stress dose steroids - continue free water - continue vasopressin - monitor urine output, creatinine - continue bicarb - hold all sedation to assess mental status - not a candidate for weaning at this time - DVT/GI prophylaxis - poor overall prognosis - continue discussions regarding goals of care, advanced directives - continue ICU monitoring critical care time spent in reviewing chart, evaluating patient and formulating plan 35 min
[2018-08-03] MEDS ORDERED: MORPHINE 100 MG in SODIUM CHLORIDE 98 ML IVPB SCH (11:45)
[2018-08-03] MEDS ORDERED: LORazepam 2 MG/ML SDV VIAL ONE (12:00)
[2018-08-03] MEDS ORDERED: HYDROCORTISONE SOD SUCCINATE 100 MG/2 ML VIAL IVPB SCH (12:00)
[2018-08-03 12:06] VITALS: BP 104/74
--- NOTE | 2018-08-03 12:07 | PN ---
Physical Exam: SUBJECTIVE: Patient seen and examined this morning. No acute overnight events. OBJECTIVE: Vital Signs Period Temp Pulse Resp BP Sys/Saha Pulse Ox Last 24 Hr 95.5 F-98 F 67-92 16-22 93-146/60-103 90-100 GENERAL: Intubated, Unresponsive HEAD: Microcephaly, NCAT EYES: Pupils nonreactive, fixed ENT: Moist mucous membranes NECK: Supple LUNGS: Mechanical breath sounds HEART: Regular rate and rhythm, S1, S2 without murmur ABDOMEN: Soft, nontender, nondistended, + bowel sounds EXTREMITIES: 2+ pulses, Limbs contracted, no edema. NEUROLOGICAL: Absent pupillary reflex. No withdrawal to pain stimuli SKIN: Warm, dry Laboratory Results - last 24 hr 08/03/18 08/03/18 08/03/18 05:30 05:30 05:30 WBC 15.0 H RBC 2.01 L Hgb 7.1 L Hct 20.9 L MCV 104.0 H MCH 35.1 H MCHC 33.7 RDW 15.1 Plt Count 226 MPV 8.2 Absolute Neuts (auto) 12.1 H Total Counted Neutrophils % 80.4 Neutrophils % (Manual) Band Neutrophils % Lymphocytes % 11.2 Lymphocytes % (Manual) Monocytes % 8.2 D Monocytes % (Manual) Eosinophils % 0.0 D Eosinophils % (Manual) Basophils % 0.2 Basophils % (Manual) Myelocytes % (Man) Promyelocytes % (Man) Blast Cells % (Manual) Nucleated RBC % 0 Metamyelocytes Hypochromia Platelet Estimate Platelet Comment Polychromasia Poikilocytosis Basophilic Stippling Anisocytosis Microcytosis Macrocytosis PT with INR 13.70 H INR 1.16 H PTT (Actin FS) 33.0 Fibrinogen 457.0 Anticoagulation Therapy Puncture Site ABG pH ABG pCO2 at Pt Temp ABG pO2 at Pt Temp ABG HCO3 ABG O2 Sat (Measured) ABG O2 Content ABG Base Excess Eliezer Test O2 Delivery Device Oxygen Flow Rate Vent Mode Vent Rate Mechanical Rate PEEP Pressure Support Vent Sodium Potassium Chloride Carbon Dioxide Anion Gap BUN Creatinine Creat Clearance w eGFR POC Glucometer Random Glucose Calcium Phosphorus Magnesium Total Bilirubin Direct Bilirubin AST ALT Alkaline Phosphatase Total Protein Albumin Total Amylase Lipase Urine Color Urine Appearance Urine pH Ur Specific Anderson Urine Protein Urine Glucose (UA) Urine Ketones Urine Blood Urine Nitrite Urine Bilirubin Urine Urobilinogen Ur Leukocyte Esterase Urine WBC (Auto) Urine RBC (Auto) Urine Mucus 08/03/18 08/03/18 08/03/18 05:30 05:45 08:26 WBC RBC Hgb Hct MCV MCH MCHC RDW Plt Count MPV Absolute Neuts (auto) Total Counted Neutrophils % Neutrophils % (Manual) Band Neutrophils % Lymphocytes % Lymphocytes % (Manual) Monocytes % Monocytes % (Manual) Eosinophils % Eosinophils % (Manual) Basophils % Basophils % (Manual) Myelocytes % (Man) Promyelocytes % (Man) Blast Cells % (Manual) Nucleated RBC % Metamyelocytes Hypochromia Platelet Estimate Platelet Comment Polychromasia Poikilocytosis Basophilic Stippling Anisocytosis Microcytosis Macrocytosis PT with INR INR PTT (Actin FS) Fibrinogen Anticoagulation Therapy Puncture Site Right brachial ABG pH 7.44 ABG pCO2 at Pt Temp 25.4 L ABG pO2 at Pt Temp 82.3 D ABG HCO3 17.0 L ABG O2 Sat (Measured) 96.9 ABG O2 Content 9.0 L* ABG Base Excess -6.1 L Eliezer Test Positive O2 Delivery Device Oxygen Flow Rate Yes Vent Mode Vent Rate 22 Mechanical Rate PEEP 5.0 Pressure Support Vent 350 Sodium 151 H Potassium 3.7 Chloride 123 H Carbon Dioxide 19 L Anion Gap 9 BUN 23 H Creatinine 1.3 Creat Clearance w eGFR > 60 POC Glucometer Random Glucose 158 H Calcium 7.1 L Phosphorus 3.4 Magnesium 1.6 L Total Bilirubin 0.2 Direct Bilirubin 0.1 AST 131 H ALT 36 Alkaline Phosphatase 140 H Total Protein 4.3 L Albumin 1.4 L Total Amylase Lipase Urine Color Yellow Urine Appearance Clear Urine pH 5.0 D Ur Specific Anderson 1.019 Urine Protein 1+ H Urine Glucose (UA) Negative Urine Ketones Negative Urine Blood Negative Urine Nitrite Negative Urine Bilirubin Negative Urine Urobilinogen Negative Ur Leukocyte Esterase Negative Urine WBC (Auto) 16 Urine RBC (Auto) 2 Urine Mucus Rare Microbiology 08/01/18 19:00 Sputum - Endotrachea Suction/Ventilator Sputum Culture - Preliminary Non Lactose Fermenting Gnb Lactose Fermenting Neg Bacilli 08/01/18 19:00 Urine - Urine Bates Urine Culture - Final NO GROWTH OBTAINED 08/01/18 19:00 Blood - Peripheral Venous Blood Culture - Preliminary NO GROWTH OBTAINED AFTER 24 HOURS, INCUBATION TO CONTINUE FOR 4 DAYS. 07/29/18 18:30 Sputum - Endotrachea Suction/Ventilator Gram Stain - Final 07/29/18 18:30 Sputum - Endotrachea Suction/Ventilator Sputum Culture - Final Diphtheroid/Corynebacterium 07/29/18 18:30 Urine - Urine Bates Urine Culture - Final NO GROWTH OBTAINED 07/25/18 13:36 Nasopharyngeal Swab Respiratory Virus (PCR) - Final 07/23/18 17:10 Blood - Peripheral Venous Blood Culture - Final NO GROWTH AFTER 5 DAYS INCUBATION 07/23/18 17:10 Blood - Peripheral Venous Blood Culture - Final NO GROWTH AFTER 5 DAYS INCUBATION 07/24/18 09:49 Urine - Urine Bates Legionella Antigen - Final 07/24/18 09:49 Urine - Urine Bates Streptococcus pneumoniae Antigen (M - Final 07/24/18 17:10 Sputum - Expectorated Gram Stain - Final 07/24/18 17:10 Sputum - Expectorated Sputum Culture - Final NORMAL RESPIRATORY KRISTIAN 07/23/18 17:51 Urine - Urine - Catheterized Urine Culture - Final Morganella Morganii Escherichia Coli Active Medications Acetylcysteine (Mucomyst 20 Oral / Inh Use Only*) 600 mg NEB RQID [facility] Last Admin: 08/03/18 07:40 Dose: 600 mg Albuterol Sulfate (Ventolin 0.083% Nebulizer Soln -) 1 amp NEB RQID [facility] Last Admin: 08/03/18 07:40 Dose: 1 amp Chlorhexidine Gluconate (Hibiclens For Decolonization -) 1 applic TP HS [facility] Last Admin: 08/02/18 22:01 Dose: 1 applic Clobazam (Onfi -) 15 mg GT BID [facility] Last Admin: 08/03/18 09:34 Dose: 15 mg Diazepam (Valium -) 5 mg GT DAILY [facility] Last Admin: 08/03/18 09:33 Dose: 5 mg Fludrocortisone Acetate (Florinef -) 0.05 mg GT DAILY [facility] Last Admin: 08/03/18 09:45 Dose: 0.05 mg Heparin Sodium (Porcine) (Heparin -) 5,000 unit SQ TID [facility] Last Admin: 08/03/18 06:55 Dose: 5,000 unit Heparin Sodium (Porcine) (Heparin -) 30,000 unit IVPUSH ONCE ONE Stop: 08/03/18 10:01 Hydrocortisone Sodium Succinate (Solu-Cortef -) 50 mg IVPB Q8H [facility] Doxycycline Hyclate 100 mg/ (Dextrose) 100 mls @ 100 mls/hr IVPB BID [facility] Last Admin: 08/03/18 09:32 Dose: 100 mls/hr Norepinephrine Bitartrate 8, (000 mcg/ Dextrose) 500 mls @ 18.75 mls/hr IV TITR [facility]UL[facility]; Protocol Last Admin: 08/03/18 02:10 Dose: Not Given Piperacillin Sod/Tazobactam (Sod 3.375 gm/ Dextrose) 50 mls @ 100 mls/hr IVPB Q8H-IV [facility]; Protocol Last Admin: 08/03/18 09:32 Dose: 100 mls/hr Vasopressin 50 units/ Sodium (Chloride) 100 mls @ 4 mls/hr IVPB ASDIR [facility]; Protocol Last Admin: 08/02/18 21:58 Dose: 2.4 units/hr, 4.8 mls/hr Dextrose (D5w -) 1,000 mls @ 100 mls/hr IV ASDIR [facility] Last Admin: 08/02/18 11:27 Dose: 100 mls/hr Morphine Sulfate 100 mg/ (Sodium Chloride) 100 mls @ 1 mls/hr IVPB TITR [facility]; Protocol Lactulose (Cephulac (Oral Use)) 20 gm GT BID [facility] Last Admin: 08/03/18 09:33 Dose: 20 gm Lorazepam (Ativan Injection -) 1 mg IVPUSH Q6H PRN PRN Reason: ANXIETY Morphine Sulfate (Morphine Injection -) 2 mg IVPUSH ONCE ONE Stop: 08/03/18 12:31 Mupirocin (Bactroban Ointment (For Decolonization) -) 1 applic NS BID [facility] Stop: 08/03/18 21:59 Last Admin: 08/03/18 09:35 Dose: 1 applic Pantoprazole Sodium (Protonix Iv) 40 mg IVPUSH DAILY [facility] Last Admin: 08/03/18 09:32 Dose: 40 mg Simethicone (Mylicon Liquid -) 40 mg GT BID [facility] Last Admin: 08/03/18 09:35 Dose: 40 mg Sodium Bicarbonate (Sodium Bicarbonate -) 650 mg PO TID [facility] Last Admin: 08/03/18 06:55 Dose: 650 mg Topiramate (Topamax -) 100 mg GT BID [facility] Last Admin: 08/03/18 09:33 Dose: 100 mg ASSESSMENT/PLAN: 28 y/o M from [facility] with a PMHx of Seizure Disorder, Microcephaly, Profound MR, Paraplegia, Scoliosis presented to the ED with severe sepsis was transferred to the ICU after a Code 99 was called (07/29/18) for PEA s/p intubation #ID Septic Shock Hypothermia -Likely multifactorial, in part due to aspiration pneumonia -Hypothermic, Hypotensive on arrival in ICU; Improved since however remains Labile -Currently on Vasopressin -Norepinephrine D/C'ed last evening -Sputum cx: Diphtheroid/Corynebacterium -Urine cx + for Morganelle Morgani, E. Coli -Blood cx NGTD -RSV Swab, urine antigen for Strep/legionella negative -Continue Jesus Alberto hugger -Taper Hydrocortisone 50 to q8H; Continue Fludrocortisone 0.05 Daily -Continue Zosyn, Doxycycline -ID (Dr. Bauer) consulted -Palliative care consulted #Cardiovascular S/P Cardiac arrest -Patient does not have a cardiac history -Troponin < 0.02 -ECHO: LV Systolic function is mildly reduced, mild global hypokinesis of the LV Hypotension due to Septic Shock -S/P 2L Fluid resuscitation -Pressures remain Labile; Off pressors currently and Maintaining MAP >65 #Pulmonary Septic shock likely due to Aspiration Pneumonia -Continue Zosyn, Doxycycline -Intubated, Vent settings 22/350/6%/+5 -Monitor ABG #Neuro Hx of Seizure disorder, Severe MR Possibly ADELFO -Able to spontaneously breath on vent however no pupillary reflex, no response to pain stimuli -Not candidate for targeted temp management due to severe bradycardia -Continue Onfi, Valium, and Topamax -Ativan PRN -Monitor for breakthrough seizure -Neurology (Dr. Escobedo) Consulted, appreciate rec's -Hold all sedation to assess mental status #Renal HyperNatremia Hypokalemia Hypophosphatemia Elevated Cr -D5w @ 100 mls/hr -Trend BMP, Phos #Endo DI -D5w @ 100 mls/hr -Continue Vasopressin -Monitor Urine Output #PPx -DVT: Heparin TID -GI: Protonix 40 Daily #FEN -D5w @ 100 mls/hr -Replete lytes PRN -NPO Dispo: Continue to monitor in ICU, Goals of care discussion with family as he likely has poor prognosis Visit type - Emergency Visit Emergency Visit: Yes ED Registration Date: 07/23/18 Care time: The patient presented to the Emergency Department on the above date and was hospitalized for further evaluation of their emergent condition. - New Patient This patient is new to me today: No - Critical Care Critical Care patient: Yes Total Critical Care Time (in minutes): 36 Critical Care Statement: The care of this patient involved high complexity decision making to prevent further life threatening deterioration of the patient 's condition and/or to evaluate & treat vital organ system(s) failure or risk of failure.
[2018-08-03 12:08] VITALS: PULSE 76
[2018-08-03 12:13] LABS: BASO % 0.1 % (0-2.0); HEMATOCRIT 21.2 % (35.4-49); HEMOGLOBIN 7.1 GM/dL (11.7-16.9); LYMPH % 15.6 % (8-40); MCH 34.6 pg (25.7-33.7); MCHC 33.6 g/dl (32.0-35.9); MEAN CELL VOLUME 103.1 fl (80-96); MEAN PLT VOLUME 8.4 fl (7.5-11.1); MONO % 1.9 % (3.8-10.2); NEUT % 82.4 % (42.8-82.8); PLATELET COUNT 216 K/MM3 (134-434); RBC 2.05 M/mm3 (4.00-5.60); RDW 14.6 % (11.9-15.9); WHITE BLOOD COUNT 14.8 K/mm3 (4.0-10.0)
[2018-08-03] MEDS: DEXTROSE 5%-WATER - 1,000 ML IV SCH (12:14)
[2018-08-03 12:25] LABS: INR 1.16 (0.83-1.09); PROTHROMBIN TIME (PATIENT) 13.7 SEC (9.7-13.0)
[2018-08-03] MEDS ORDERED: MORPHINE SULFATE 2 MG/ML VIAL IVPUSH ONE (12:30)
[2018-08-03] MEDS ORDERED: HEPARIN NA (PORCINE) 5,000 UNITS/ML 1ML VIAL IVPUSH ONE (12:45)
[2018-08-03 12:50] LABS: ALBUMIN 1.5 g/dl (3.4-5.0); ALK PHOS 150 U/L (45-117); ANION GAP 11 MMOL/L (8-16); BILIRUBIN,DIRECT 0.1 mg/dL (0.0-0.2); BILIRUBIN,TOTAL 0.3 mg/dL (0.2-1); BLOOD UREA NITROGEN 25 mg/dL (7-18); CALCIUM 7.2 mg/dL (8.5-10.1); CHLORIDE 120 mmol/L (98-107); CO2 18 mmol/L (21-32); CREATININE 1.3 mg/dL (0.55-1.3); GLUCOSE,RANDOM 173 mg/dL (74-106); MAGNESIUM 1.7 mg/dL (1.8-2.4); PHOSPHOROUS 3.3 mg/dL (2.5-4.9); POTASSIUM 3.4 mmol/L (3.5-5.1); SGOT/AST 147 U/L (15-37); SGPT/ALT 38 U/L (13-61); SODIUM 149 mmol/L (136-145); TOT PROT 4.5 g/dl (6.4-8.2)
--- NOTE | 2018-08-03 13:06 | PN ---
Progress Note (short form) - Note Progress Note: 28M brought to OR by ICU team for palliative extubation and redrawal of care with possible organ procurement. I assisted in transferring pt to anesthesia vent on same settings pt was on in ICU and to anesthesia montitor, then left room. There was no anesthetic administered. The ICU team and palliative care team are managing the patient in the OR. There is no anesthesiologist involved with this case.
[2018-08-03 13:10] VITALS: TEMP 97.6
--- NOTE | 2018-08-03 15:35 | PN ---
Progress Note (short form) - Note Progress Note: Decision was made to compassionately ween patient. Pressors were withdrawn and patient was transferred to the OR. Patient was extubated at 13:21 with step sister present. At 13:34, patient entered Asystole on event monitor. Patient was unresponsive to painful stimuli. Pupils fixed and nonreactive. Patient had no spontaneous breathing. No carotid pulses present. Time of pronounced at 13:36 on 08/03/18. Organ procurement as per [facility] on protocol. Family notified by nurse. Grievance services offered to family. Body to be released to home of family's choice.
--- NOTE | 2018-08-03 17:00 | DS ---
Physical Examination Vital Signs: Vital Signs Temperature 97.6 F 08/03/18 12:00 Pulse Rate 76 08/03/18 12:07 Respiratory Rate 22 H 08/03/18 12:00 Blood Pressure 104/74 08/03/18 12:00 O2 Sat by Pulse Oximetry (%) 96 08/03/18 12:07 Findings/Remarks: 24 HR events -pt set for terminal extubation today -[place] on [place] in house for organ donation. -pt remains on low dose vasopressin 2.4u/hr Constitutional: Yes: Ashen Eyes: Yes: Conjunctiva Clear HENT: Yes: Atraumatic Neck: Yes: Supple Cardiovascular: Yes: Regular Rate and Rhythm Respiratory: Yes: Other (ETT to vent, coarse BS b/l) Gastrointestinal: Yes: Soft, Hypoactive Bowel Sounds ...Rectal Exam: Yes: Deferred Musculoskeletal: Yes: Muscle Weakness Extremities: Yes: WNL Edema: No Peripheral Pulses WNL: No Peripheral Pulses: Left Radial: 1+, Right Radial: 1+, Left Doralis Pedis: 1+, Right Dorsalis Pedis: 1+ Integumentary: Yes: WNL Neurological: Yes: Unresponsive Labs: CBC, BMP 08/03/18 11:15 08/03/18 11:15 Discharge Summary Reason For Visit: HYPOTHERMIA; SEIZURE; SEPSIS Procedures: Principal: CT CAP 08/02/2018. IMPRESSION: 1. Bilateral pleural effusions with extensive atelectasis of both lower lobes. 2. Patchy left upper lobe consolidation concerning for acute pneumonia. 3. Ill-defined right upper lobe mass that may represent focal consolidation and not a true neoplasm. 4. Ascites. 5. 7 mm left UVJ calculus with moderate hydronephrosis. 6. Bilateral nephrolithiasis. 7. Thick-walled urinary bladder. 8. Chronic bony abnormalities of the thoracolumbar spine and both hips. Please see above discussion. Reported By: Abel Anderson MD. 08/02/18 [id number]. Hospital Course: Mr. Guzman is a 28 yo male w/ pmh of chronic aspiration, pneumonia, asthma, PEG tube, seizure disorder, profound MR, microcephaly, paraplegia, scoliosis s/ p spinal fusion, R hip osteotomy, wheelchair bound at baseline who presents for evaluation after staff noted seizure. Patient is typically extremely well controlled on his seizure medications of keppra, topiramate, and phenobarbital. Patient reportedly typically conversant however unresponsive at presentation. Pt admitted to the ICU and managed on high flow face mask with bipap at night. 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 He was transferred to ICU. Pt's family was seen by palliative care Nurse and decision made for terminal extubation. On 08/03, pt placed on PS 5/5 and was extubated at 1:21pm, with time of 1: 36pm. Condition: Critical - Instructions Disposition: - Home Medications Comprehensive Discharge Medication List: Ambulatory Orders Bacitracin - [Bacitracin Topical Ointment -] 1 applic TP TID 07/23/18 Baclofen 10 mg GT TID 07/23/18 Calcium Carbonate/Vitamin D3 [Oyster Shell 500-Vit D3 200 Tb] 1 each GT BID 05/01 Clobazam [Onfi] 15 mg GT BID 07/23/18 Diazepam 0.5 mg GT DAILY 07/23/18 Doxycycline Oral Suspension [Vibramycin Oral Suspension -] 100 mg GT BID Ferrous Sulfate 220 mg GT BID 07/23/18 Lactose-Reduced Food/Fiber [Jevity] 75 ml GT DAILY 07/23/18 Lactulose (Oral Use) [Cephulac -] 20 gm GT BID 07/23/18 Loratadine 10 mg GT DAILY 07/23/18 Mometasone Furoate [Asmanex 110Mcg -] 2 inh IH BID 07/23/18 Polyethylene Glycol 3350 [Glycolax] 17 gm GT HS 07/23/18 Sennosides [Senna] 2 tab GT HS 07/23/18 Simethicone 40 mg GT BID 07/23/18 Sulfamethoxazole/Trimethoprim [Bactrim Ds Tablet] 1 each GT DAILY 07/23/18 Topiramate 100 mg GT BID 07/23/18 This patient is new to me today: No Emergency Visit: Yes ED Registration Date: 07/23/18 Care time: The patient presented to the Emergency Department on the above date and was hospitalized for further evaluation of their emergent condition. Critical Care patient: Yes Total Critical Care Time (in minutes): 60 Critical Care Statement: The care of this patient involved high complexity decision making to prevent further life threatening deterioration of the patient 's condition and/or to evaluate & treat vital organ system(s) failure or risk of failure. - Discharge Referral Referred to [facility] No
[2018-08-04 20:12] LABS: CK-MM 98 % (97-100)
== END 2018-08-03 13:36 | disposition expired | DRG 720 ==
LOC: JER 16:33 → JERBED 17:31 → JICU 21:52 → J6S 07-28 00:09 → JICU 07-29 17:24
PROVIDERS: ADMIT Internal Medicine; ATTEND Nurse Practitioner Family
PROC: 5A1955Z Respiratory Ventilation, Greater than 96 Consecutive Hours (ICD-10-PCS; principal; 2018-07-29)
PROC: 0BH17EZ Insertion of Endotracheal Airway into Trachea, Via Natural or Artificial Opening (ICD-10-PCS; 2018-07-29)
PROC: 5A12012 Performance of Cardiac Output, Single, Manual (ICD-10-PCS; 2018-07-29)
PROC: 05HM33Z Insertion of Infusion Device into Right Internal Jugular Vein, Percutaneous Approach (ICD-10-PCS; 2018-07-30)
DX: A41.89 Other specified sepsis (principal); R68.0 Hypothermia, not associated with low environmental temperature; Q02 Microcephaly; G40.909 Epilepsy, unspecified, not intractable, without status epilepticus; J45.909 Unspecified asthma, uncomplicated; J96.90 Respiratory failure, unspecified, unspecified whether with hypoxia or hypercapnia; G80.9 Cerebral palsy, unspecified; I46.9 Cardiac arrest, cause unspecified; N39.0 Urinary tract infection, site not specified; R33.9 Retention of urine, unspecified; E87.0 Hyperosmolality and hypernatremia; F73 Profound intellectual disabilities; J69.0 Pneumonitis due to inhalation of food and vomit; E87.1 Hypo-osmolality and hyponatremia; J12.1 Respiratory syncytial virus pneumonia; M41.9 Scoliosis, unspecified; I95.9 Hypotension, unspecified; G82.20 Paraplegia, unspecified; E87.6 Hypokalemia; E83.39 Other disorders of phosphorus metabolism; E87.2 Acidosis; G93.1 Anoxic brain damage, not elsewhere classified; R65.21 Severe sepsis with septic shock
CPT/HCPCS: 31500; 36415; 36600; 71045-TC-FY; 71250-TC; 74176-TC; 80048; 80053; 80076; 80177; 80201; 80307; 81003; 81015; 82150; 82248; 82272; 82375; 82550; 82552; 82553; 82803; 82962; 83036; 83050; 83605; 83690; 83735; 83930; 83935; 84100; 84443; 84484; 85025; 85027; 85384; 85610; 85730; 86850; 86900; 86901; 87040; 87070; 87077; 87086; 87186; 87205; 87633; 87804; 87807; 87899; 93005; 93010; 93306-TC; 94002; 94640; 94660; 99285-25; J1644; J7030